=== PATIENT | female | born 1995 | race Caucasian/White ===

== ENCOUNTER 2016-09-25 01:40 | Emergency (ER) | payer OTHER ==
[~2016-09-25] VITALS: Ht 149.9 cm; Wt 36.6 kg
[~2016-09-25 01:40] MED LIST: ACHD5005 PO; ACYC200C5 PO; ALBU17AE23 IH; ALBU8.5H2 IH; AZIT-21 PO; CETI10CA PO; CETI10TA17 PO; CYCL5TAB11 PO; DICL50TA4 PO; DOXY-13 PO; DOXY100C42 PO; FAMO-119 PO; FAMO20TA5 PO; FEXO1TAB43 PO; FLUC150T PO; GUAI10SY4 GT; IBP200T PO; METR500T21 PO; MONT10TA21 PO; MONT5TAB11 PO; MONT5TAB16 PO; NF-FLON16G; PRD20T PO; RT-ALBUINH IH; SULF1TAB35 PO; TRIA100A TP
--- NOTE | 2016-09-25 02:12 | ED General ---
General Chief Complaint: Respiratory Problems Stated Complaint: LEGS NUMB, BODY SHAKES, CHEST PAIN Nursing Triage Note: PT TO ED 5 W/ S.O. FOR C/O GENERALIZED SHAKING, HEAVINESS IN CHEST, COUGH, CONGESTION. REPORTS SHE WAS SEEN AT URGENT CARE ET DX W/ INFLAMMATION IN LUNGS ET BRONCHITIS. HAS BEEN TAKING STEROID PRESCRIBED ET DUONEB TX EVER 2-4 HRS. Nursing Sepsis Screen: Possible Sepsis Risk Source of Information: Patient Exam Limitations: No Limitations History of Present Illness Time Seen by Provider: 01:57 Initial Comments Here with complaint of shakiness and cough and congestion. Stated that she started new medicines for bronchitis that she got yesterday including 60 mg of prednisone and albuterol treatments every 2-4 hours. Afterwards she became quite shaky and felt some agitation. She still has the cough but is breathing okay. She complains of chest congestion and heaviness with the cough. Denies nausea or vomiting. Timing/Duration: 4-6 Hours, Getting Worse Severity: Moderate Associated Systoms: CoughNo Fever/Chills, No Nausea/Vomiting, No Shortness of Air, No Weakness Allergies and Home Medications Allergies Coded Allergies: Penicillins (Unverified Allergy, Unknown, 05/12/15) Home Medications Cetirizine HCl 10 Mg Capsule 10 MG PO DAILY (Reported) Diclofenac Potassium 50 Mg Tablet #30 50 MG PO Q6H PRN PRN ABDOMINAL PAIN Prescribed by: ABBY ROMO on 07/21/16 1640 Fluconazole 150 Mg Tablet #2 150 MG PO every other day Prescribed by: LEO MOSER on 07/25/16 1108 Fluticasone Propionate 50 Mcg/16 G [place] 50 MCG NA (Reported) Metronidazole 500 Mg Tablet #13 500 MG PO BID Prescribed by: LAURIE DIAZ on 08/30/16 0857 Montelukast Sodium 10 Mg Tablet 10 MG PO DAILY (Reported) Constitutional: see HPINo chills, No fever Respiratory: see HPI cough short of breath Cardiovascular: see HPI Gastrointestinal: no symptoms reportedNo nausea, No vomiting Genitourinary: no symptoms reported Musculoskeletal: no symptoms reported Skin: no symptoms reported Psychiatric/Neurological: See HPI Anxiety Tremors Hematologic/Lymphatic: No Symptoms Reported All Other Systems Reviewed Negative Unless Noted: Yes Past Kyhpzut-Yfwjje-Ftptss Hx Patient Social History Alcohol Use: Denies Use Recreational Drug Use: No Smoking Status: Never a Smoker Recent Foreign Travel: No Contact w/Someone Who Travel: No Recent Infectious Disease Expo: No Recent Hopitalizations: No Physical Abuse Screen: No Sexual Abuse: No Immunizations Up To Date Tetanus Booster (TDap): Less than 5yrs Seasonal Allergies Seasonal Allergies: Yes Surgeries HX Surgeries: Yes (TUBES IN EARS ) Respiratory Hx Respiratory Disorders: Yes Respiratory Disorders: Asthma Cardiovascular Hx Cardiac Disorders: No Neurological Hx Neurological Disorders: No Reproductive System Hx Reproductive Disorders: No Sexually Transmitted Disease: No Genitourinary Hx Genitourinary Disorders: No Gastrointestinal Hx Gastrointestinal Disorders: No Musculoskeletal Hx Musculoskeletal Disorders: No Musculoskeletal Disorders: Fractures Endocrine Hx Endocrine Disorders: No HEENT HX ENT Disorders: No Cancer Hx Cancer: No Psychosocial Hx Psychiatric Problems: No Integumentary HX Skin/Integumentary Disorder: No Blood Transfusions Hx Blood Disorders: No Reviewed Nursing Assessment Reviewed/Agree w Nursing PMH: Yes Family Medical History Significant Family History: No Pertinent Family Hx Physical Exam Vital Signs Vital Sign - Last 12Hours 09/25/16 01:52 Temp 97.2 Pulse 136 Resp 24 B/P 130/84 Pulse Ox 97 O2 Delivery Room Air Capillary Refill : Less Than 3 Seconds General Appearance: No Apparent Distress WD/WN HEENT: PERRL/EOMI Pharynx Normal Neck: Non Tender Supple Respiratory: Lungs Clear Normal Breath Sounds Cardiovascular: No Murmur Tachycardia Gastrointestinal: Non Tender Soft Back: Normal Inspection No CVA Tenderness No Vertebral Tenderness Extremity: Non Tender No Calf Tenderness Neurologic/Psychiatric: Alert Oriented x3 Skin: Normal Color Warm/Dry Progress/Results/Core Measures Results/Orders Vital Signs/I&O Vital Sign - Last 12Hours 09/25/16 01:52 Temp 97.2 Pulse 136 Resp 24 B/P 130/84 Pulse Ox 97 O2 Delivery Room Air Blood Pressure Mean: 99 Progress Note : Progress Note Seen and evaluated. Reviewed medications. All current symptoms are within the side effect profile of the medications especially given her weight. This was discussed with the patient and she seemed reassured. We will adjust her medication dosing based on her weight and have her follow-up with her doctor. Discharged home with return precautions. Patient verbalize understanding instructions and agreement with plan. Departure Impression Impression: Primary Impression: Bronchitis Additional Impression: Medication side effect Qualified Code: T88.7XXA - Unspecified adverse effect of drug or medicament, initial encounter Disposition: HOME, SELF-CARE Condition: Stable Departure-Patient Inst. Decision time for Depature: 02:10 Referrals: [facility] (PCP/Family) Primary Care Physician Patient Instructions: Acute Bronchitis, Adult (DC) Add. Discharge Instructions: All discharge instructions reviewed with patient and/or family. Voiced understanding. We will adjust her medication dosing. Take prednisone one tablet daily for 4 days and then one half tablet daily for 2 days after that and then stop. Do not use the nebulizer treatment more often than every 4 hours. Avoid caffeine. Drink plenty of fluids and eat a normal diet. You may take ibuprofen 400 mg every 8 hours as needed for discomfort. Follow-up with her doctor in a few days for recheck. Return for worse pain, fever, vomiting, weakness, breathing problems or other concerns as needed. LAURIE DIAZ MD Sep 25, 2016 02:12
[2016-09-25 02:16] VITALS: BP 0/0
== END 2016-09-25 02:16 | disposition home or self-care (01) ==
LOC: EDUNIT# 01:40 → ER 01:44
DX: R45.1 Restlessness and agitation (principal); T38.0X5A Adverse effect of glucocorticoids and synthetic analogues, initial encounter; T48.6X5A Adverse effect of antiasthmatics, initial encounter; J40 Bronchitis, not specified as acute or chronic
CPT/HCPCS: 99282

== ENCOUNTER 2016-10-14 17:37 | Emergency (ER) | payer OTHER ==
[~2016-10-14] VITALS: Ht 149.9 cm; Wt 36.3 kg
--- NOTE | 2016-10-14 18:20 | ED GU-Female ---
General Chief Complaint: Abdominal/GI Problems Stated Complaint: ABD SWELLING/PAIN/NAUSEA/UTI Nursing Triage Note: PT STATES SHE HAS HAD LOWER ABD SWELLING FOR 2 WEEKS. ALSO HAS NAUSEA AND VOTMITNG. STATES SHE IS CURRENTLY BEING TREATED FOR A UTI-IS ON BACTRIM SINCE SUNDAY. Nursing Sepsis Screen: No Definite Risk Source: patient, family (mother) Exam Limitations: no limitations History of Present Illness Time seen by provider: 18:20 Initial Comments 21-year-old female patient presents to the emergency department complains of lower abdominal swelling for 2 weeks. Patient was diagnosed with urinary tract infection on Sunday and given Bactrim at via [facility] urgent care. Patient reports dysuria, frequency, nausea, vomiting. Denies fevers. Reports generalized abdominal pain. Timing/Duration: getting worse, changing over time, other (2 weeks onset) Severity/Quality: aching, cramping Location: other (generalized abdomen) Radiation: none Activities at Onset: none Prior Genitourinary Problems: similar symptoms Sexual [place] History: less than 2 months ago, single partner Modifying Factors: Worsens With Eating, Worsens With Palpation, Worsens With Urinating, Worsens With Vomiting Allergies and Home Medications Allergies Coded Allergies: Penicillins (Unverified Allergy, Unknown, 05/12/15) Uncoded Allergies: SULFA (Allergy, Unknown, 10/14/16) Home Medications Cetirizine HCl 10 Mg Capsule 10 MG PO DAILY (Reported) Ciprofloxacin HCl 500 Mg Tablet #14 500 MG PO BID Prescribed by: BELINDA CUELLAR on 10/14/162018 Diclofenac Potassium 50 Mg Tablet #30 50 MG PO Q6H PRN PRN ABDOMINAL PAIN Prescribed by: ABBY ROMO on 07/21/16 1640 Fluconazole 150 Mg Tablet #2 150 MG PO every other day Prescribed by: LEO MOSER on 07/25/16 1108 Fluticasone Propionate 50 Mcg/16 G [place] 50 MCG NA (Reported) Metronidazole 500 Mg Tablet #13 500 MG PO BID Prescribed by: LAURIE DIAZ on 08/30/16 0857 Montelukast Sodium 10 Mg Tablet 10 MG PO DAILY (Reported) Ondansetron 4 Mg Tab.rapdis #10 4 MG PO Q6H PRN PRN NAUSEA Prescribed by: BELINDA CUELLAR on 10/14/162018 Phenazopyridine HCl 100 Mg Tablet #14 100 MG PO Q8H PRN PRN PAIN Prescribed by: BELINDA CUELLAR on 10/14/162018 Constitutional: No chills, No fever, No malaise EENTM: no symptoms reported Respiratory: no symptoms reported Cardiovascular: no symptoms reported Gastrointestinal: see HPI abdominal pain (generalized)No constipation, No diarrhea, loss of appetite nausea vomiting Genitourinary: see HPIdenies discharge, dysuria frequencydenies flank pain, denies hematuria, pain : No Musculoskeletal: No back pain Skin: no symptoms reported Psychiatric/Neurological: No Symptoms Reported All Other Systemes Reviewed Negative Unless Noted: Yes (Negative excepted noted.) Past Bkiumzt-Xuuicv-Orflut Hx Patient Social History Alcohol Use: Denies Use Recreational Drug Use: No Smoking Status: Never a Smoker 2nd Hand Smoke Exposure: No Recent Foreign Travel: No Contact w/Someone Who Travel: No Recent Infectious Disease Expo: No Recent Hopitalizations: No Immunizations Up To Date Tetanus Booster (TDap): Less than 5yrs Seasonal Allergies Seasonal Allergies: Yes Surgeries HX Surgeries: Yes (TUBES IN EARS ) Respiratory Hx Respiratory Disorders: Yes Respiratory Disorders: Asthma Cardiovascular Hx Cardiac Disorders: No Neurological Hx Neurological Disorders: No Reproductive System Hx Reproductive Disorders: No Sexually Transmitted Disease: No Genitourinary Hx Genitourinary Disorders: No Gastrointestinal Hx Gastrointestinal Disorders: No Musculoskeletal Hx Musculoskeletal Disorders: No Musculoskeletal Disorders: Fractures Endocrine Hx Endocrine Disorders: No HEENT HX ENT Disorders: No Cancer Hx Cancer: No Psychosocial Hx Psychiatric Problems: No Integumentary HX Skin/Integumentary Disorder: No Blood Transfusions Hx Blood Disorders: No Reviewed Nursing Assessment Reviewed/Agree w Nursing PMH: Yes Family Medical History Significant Family History: No Pertinent Family Hx Physical Exam Vital Signs Vital Sign - Last 12Hours 10/14/16 10/14/16 17:52 21:00 Temp 98.7 Pulse 80 Resp 18 B/P 124/84 Pulse Ox 99 Capillary Refill : Less Than 3 Seconds General Appearance: WD/WN no apparent distress HEENT: PERRL/EOMI pharynx normal Neck: supple normal inspection Cardiovascular: regular rate, rhythm no edema no murmur Respiratory: lungs clear normal breath sounds no respiratory distress Gastrointestinal: normal bowel sounds soft no organomegaly distended (mildly distended, but soft.) guarding (generalized guarding)No rebound, tenderness ( generalized abdominal tenderness)No mass Back: normal inspection no CVA tenderness Extremities: normal inspection no pedal edema normal capillary refill Neurologic/Psychiatric: alert normal mood/affect oriented x 3 Skin: normal color warm/dry Progress/Results/Core Measures Results/Orders Lab Results Laboratory Tests Test 10/14/16 17:47 10/14/16 18:51 10/14/16 19:16 Range/Units Urine Bacteria MODERATE H /HPF Urine Bilirubin NEGATIVE NEGATIVE Urine Calcium Oxalate Crystals LARGE H /LPF Urine Casts NONE /LPF Urine Clarity VERY CLOUDY H Urine Color YELLOW Urine Crystals PRESENT H /LPF Urine Culture Indicated YES Urine Glucose (UA) NEGATIVE NEGATIVE Urine Ketones 1+ H NEGATIVE Urine Leukocyte Esterase 2+ H NEGATIVE Urine Mucus NEGATIVE /LPF Urine Nitrite POSITIVE H NEGATIVE Urine Protein 2+ H NEGATIVE Urine RBC NONE /HPF Urine RBC (Auto) NEGATIVE NEGATIVE Urine Specific [place] 1.025 H 1.016-1.022 Urine Squamous Epithelial Cells 2-5 /HPF Urine Urobilinogen NORMAL NORMAL MG/DL Urine WBC 2-5 /HPF Urine pH 5 5-9 Basophils # (Auto) 0.0 0.0-0.1 10^3/uL Basophils (%) (Auto) 1 0-10 % Eosinophils # (Auto) 0.0 0.0-0.3 10^3/uL Eosinophils (%) (Auto) 0 0-10 % Hematocrit 40 35-52 % Hemoglobin 13.6 11.5-16.0 G/DL Lymphocytes # (Auto) 2.3 1.0-4.0 X 10^3 Lymphocytes (%) (Auto) 34 12-44 % Mean Corpuscular Hemoglobin 31 25-34 PG Mean Corpuscular Hemoglobin Concent 34 32-36 G/DL Mean Corpuscular Volume 89 80-99 FL Mean Platelet Volume 10.0 7.4-10.4 FL Monocytes # (Auto) 0.4 0.0-1.0 X 10^3 Monocytes (%) (Auto) 6 0-12 % Neutrophils # (Auto) 4.0 1.8-7.8 X 10^3 Neutrophils (%) (Auto) 59 42-75 % Platelet Count 179 130-400 10^3/uL Red Blood Count 4.42 4.35-5.85 10^6/uL Red Cell Distribution Width 12.9 10.0-14.5 % White Blood Count 6.8 4.3-11.0 10^3/uL Alanine Aminotransferase (ALT/SGPT) 9 0-55 U/L Albumin 4.1 3.2-4.5 G/DL Alkaline Phosphatase 36 L 40-136 U/L Anion Gap 10 5-14 MMOL/L Aspartate Amino Transf (AST/SGOT) 13 5-34 U/L BUN/Creatinine Ratio 11 Blood Urea Nitrogen 8 7-18 MG/DL Calcium Level 8.1 L 8.5-10.1 MG/DL Carbon Dioxide Level 18 L 21-32 MMOL/L Chloride Level 110 H 98-107 MMOL/L Creatinine 0.75 0.60-1.30 MG/DL Estimat Glomerular Filtration Rate > 60 Glucose Level 76 70-105 MG/DL Lipase 31 8-78 U/L Potassium Level 3.8 3.6-5.0 MMOL/L Sodium Level 138 135-145 MMOL/L Total Bilirubin 0.4 0.1-1.0 MG/DL Total Protein 5.9 L 6.4-8.2 G/DL My Orders Orders-BELINDA CUELLAR PA Ua Culture If Indicated (10/14/16 18:12) Urine Bedside (10/14/16 18:12) Ct Abdomen/Pelvis W (10/14/16 18:29) Saline Lock/Iv-Start (10/14/16 18:29) Cbc With Automated Diff (10/14/16 18:29) Comprehensive Metabolic Panel (10/14/16 18:29) Lipase (10/14/16 18:29) Ketorolac Injection (Toradol Injection) (10/14/16 18:29) Ondansetron Injection (Zofran Injectio (10/14/16 18:30) Ns Iv 500 Ml (Sodium Chloride 0.9%) (10/14/16 18:29) Iohexol Injection (Omnipaque 350 Mg/Ml 1 (10/14/16 18:45) Ns (Ivpb) (Sodium Chloride 0.9% Ivpb Bag (10/14/16 18:45) Urine Culture (10/14/16 17:47) Hydrocodone/Apap 5/325 Tablet (Lortab 5 (10/14/16 19:51) Phenazopyridine Tablet (Pyridium Tablet) (10/14/16 19:51) Levofloxacin 750 Mg/150 Ml Iv (Levaquin (10/14/16 19:51) Medications Given in ED Current Medications Medications Dose Ordered Sig/Mikey Route Start Time Stop Time Status Last Admin Dose Admin Iohexol 75 ml ONCE ONCE IV 10/14/16 18:45 10/14/16 20:50 DC 10/14/16 19:32 75 ML Ondansetron HCl 4 mg 4 mg ONCE ONCE IVP 10/14/16 18:30 10/14/16 18:31 DC 10/14/16 18:43 4 MG Sodium Chloride 100 ml ONCE ONCE IV 10/14/16 18:45 10/14/16 20:50 DC 10/14/16 19:32 100 ML Sodium Chloride 500 ml @ 0 mls/hr Q0M ONCE IV 10/14/16 18:29 10/14/16 18:31 DC 10/14/16 18:43 999 MLS/HR Vital Signs/I&O Vital Sign - Last 12Hours 10/14/16 10/14/16 17:52 21:00 Temp 98.7 98.7 Pulse 80 80 Resp 18 18 B/P 124/84 Pulse Ox 99 Blood Pressure Mean: 97 Diagnostic Imaging Diagonstic Imaging: CT Plain Films/CT/US/NM/MRI: abdomen, head Comments FINDINGS: The lung bases are clear. The liver, gallbladder, spleen, pancreas, adrenal glands, and kidneys appear normal. No renal calculi or hydronephrosis is present. Urinary bladder is normal. The uterus and adnexal structures appear normal. The appendix is partially visualized and appears normal. There is a trace amount of ascites in the right side of cul-de-sac which is probably physiological. The bowel loops appear unremarkable. The osseous structures are normal. No hernias are seen. IMPRESSION: There is trace amount of ascites in the right cul-de-sac which is probably physiological. Dictated by: Dictated on workstation # [id number] Reviewed: Reviewed by Me (radiology report reviewed by me) Departure Communication Progress Notes Laboratory and diagnostic findings were discussed with the patient and family. Patient reports feeling better with medications. Patient is given Levaquin 750 mg IV 1 dose prior to discharge. Discharge to home with follow-up as an outpatient at [facility]. Patient instructed to contact their office for appointment time. Impression Impression: Primary Impression: Urinary tract infection Qualified Code: N30.00 - Acute cystitis without hematuria Additional Impressions: Nausea and vomiting Qualified Code: R11.2 - Nausea with vomiting, unspecified Abdominal pain Qualified Code: R10.84 - Generalized abdominal pain Disposition: 01 HOME, SELF-CARE Condition: Improved Departure-Patient Inst. Decision time for Depature: 20:17 Referrals: [facility] (PCP/Family) Primary Care Physician Patient Instructions: Acute Abdomen (Belly Pain), Adult (DC), Urinary Tract Infection, Adult (DC) Add. Discharge Instructions: All discharge instructions reviewed with patient and/or family. Voiced understanding. Medications as instructed. Tylenol extra strength over-the- counter as directed for pain. Ibuprofen [id number] as directed for pain. Drink plenty of fluids. Follow-up with [facility] for recheck this week. Call Sunday for appointment time. Return to the emergency department for worsened pain, fever, vomiting, inability to urinate, or any other concerns. Scripts Ondansetron (Ondansetron Odt)4 Mg Tab.rapdis4 Mg PO Q6H PRN NAUSEA #10 TAB Ref 0 Prov:BELINDA CUELLAR 10/14/16 Phenazopyridine HCl (Pyridium)100 Mg [id number] Mg PO Q8H PRN PAIN #14 TAB Ref 1 Prov:BELINDA CUELLAR 10/14/16 Ciprofloxacin HCl 500 Mg [id number] Mg PO BID #14 TAB Ref 0 Prov:BELINDA CUELLAR 10/14/16 Work/School Note: Work Release Form Date Seen in the Emergency Department: Oct 14, 2016 Return to Work: Oct 16, 2016 Restrictions: No Restrictions BELINDA CUELLAR Oct 14, 2016 18:20
[2016-10-14] MEDS ORDERED: KETOROLAC 30 MG/ML VIAL IVP STA (18:29)
[2016-10-14] MEDS ORDERED: NS IV 500 ML 500 ML IV ONE (18:29)
[2016-10-14] MEDS ORDERED: ONDANSETRON 4 MG/2 ML (SDV) Z0FRAN IVP ONE (18:30)
[2016-10-14 18:34] LABS: BILIRUBIN,URINE NEGATIVE (NEGATIVE); KETONES,URINE 1+ (NEGATIVE); LEUKOCYTE ESTERASE ,URINE 2+ (NEGATIVE); NITRITE,URINE POSITIVE (NEGATIVE); PH,URINE 5 (5-9); PROTEIN,URINE 2+ (NEGATIVE); UROBILINOGEN,URINE NORMAL (NORMAL)
[2016-10-14 18:43] LABS: CALCIUM OXALATE CRYSTALS,UR LARGE /LPF
[2016-10-14] MEDS ORDERED: NS 100 ML (IVPB) BAG IV ONE (18:45)
[2016-10-14] MEDS ORDERED: IOHEXOL 350 MG/ML 100 ML (OMNIPAQUE 350) VIAL IV ONE (18:45)
[2016-10-14 19:02] LABS: BASOPHILS % (AUTO) 1 % (0-10); EOSINOPHILS % (AUTO) 0 % (0-10); LYMPHOCYTES # (AUTO) 2.3 X 10^3 (1.0-4.0); LYMPHOCYTES % (AUTO) 34 % (12-44); MEAN CORPUSCULAR HEMOGLOBIN 31 PG (25-34); MEAN CORPUSCULAR HGB CONC 34 G/DL (32-36); MEAN CORPUSCULAR VOLUME 89 FL (80-99); MONOCYTES # (AUTO) 0.4 X 10^3 (0.0-1.0); MONOCYTES % (AUTO) 6 % (0-12); NEUTROPHILS % (AUTO) 59 % (42-75); PLATELET COUNT 179 10^3/uL (130-400); RED BLOOD COUNT 4.42 10^6/uL (4.35-5.85); RED CELL DISTRIBUTION WIDTH 12.9 % (10.0-14.5); WHITE BLOOD COUNT 6.8 10^3/uL (4.3-11.0)
[2016-10-14 19:43] LABS: ALANINE AMINOTRANSFERASE 9 U/L (0-55); ALBUMIN 4.1 G/DL (3.2-4.5); ANION GAP 10 MMOL/L (5-14); ASPARTATE AMINO TRANSFERASE 13 U/L (5-34); BILIRUBIN,TOTAL 0.4 MG/DL (0.1-1.0); BLOOD UREA NITROGEN 8 MG/DL (7-18); BUN/CREATININE RATIO 11; CALCIUM 8.1 MG/DL (8.5-10.1); CARBON DIOXIDE 18 MMOL/L (21-32); CHLORIDE 110 MMOL/L (98-107); CREATININE SERUM 0.75 MG/DL (0.60-1.30); GFR ESTIMATED > 60; GLUCOSE 76 MG/DL (70-105); LIPASE 31 U/L (8-78); POTASSIUM 3.8 MMOL/L (3.6-5.0); SODIUM 138 MMOL/L (135-145); TOTAL PROTEIN 5.9 G/DL (6.4-8.2)
[2016-10-14] MEDS ORDERED: LEVOFLOXACIN 750 MG/150 ML IV 150 ML IV STA (19:51)
[2016-10-14] MEDS ORDERED: HYDROcodone/APAP 5 MG/325 MG (LORTAB) TAB PO STA (19:51)
[2016-10-14] MEDS ORDERED: PHENAZOPYRIDINE 100 MG (PYRIDIUM) TABLET PO STA (19:51)
--- NOTE | 2016-10-14 19:51 | Diagnostic Imaging Report ---
PROCEDURE: CT abdomen and pelvis with contrast. TECHNIQUE: Multiple contiguous axial images were obtained through the abdomen and pelvis after administration of intravenous contrast. INDICATION: Nausea and vomiting with abdominal distention for 2 weeks. No previous surgeries. CONTRAST: 75 cc of Omnipaque 350 was given intravenously. COMPARISON STUDIES: Pelvic ultrasound from August 30. FINDINGS: The lung bases are clear. The liver, gallbladder, spleen, pancreas, adrenal glands, and kidneys appear normal. No renal calculi or hydronephrosis is present. Urinary bladder is normal. The uterus and adnexal structures appear normal. The appendix is partially visualized and appears normal. There is a trace amount of ascites in the right side of cul-de-sac which is probably physiological. The bowel loops appear unremarkable. The osseous structures are normal. No hernias are seen. IMPRESSION: There is trace amount of ascites in the right cul-de-sac which is probably physiological. Dictated by: Dictated on workstation # [id number]
[2016-10-14] MEDS ORDERED: PHEN-639 PO (20:19)
[2016-10-14] MEDS ORDERED: CIPR500T4 PO (20:19)
[2016-10-14] MEDS ORDERED: ONDA4TAB11 PO (20:19)
[2016-10-14 21:00] VITALS: BP 124/84
== END 2016-10-14 21:00 | disposition home or self-care (01) ==
LOC: EDUNIT# 17:37 → ER 17:39
DX: N39.0 Urinary tract infection, site not specified (principal); R11.2 Nausea with vomiting, unspecified; R10.84 Generalized abdominal pain
CPT/HCPCS: 36415; 74177; 80053; 81000; 83690; 84703; 85025; 87088; 96361; 96365; 96375

== ENCOUNTER 2016-12-31 21:05 | Emergency (ER) | payer SELFPAY ==
[~2016-12-31] VITALS: Ht 149.9 cm; Wt 36.6 kg
[~2016-12-31 21:05] MED LIST changes: +CIPR500T4 PO; +ONDA4TAB11 PO; +PHEN-639 PO
--- NOTE | 2016-12-31 21:21 | ED GU-Female ---
General Chief Complaint: -Female Stated Complaint: ABD PAIN, BLOOD IN URINE, FREQUENT URINATION Source: patient Exam Limitations: no limitations History of Present Illness Time seen by provider: 21:20 Initial Comments To ER with a one-week history of urinary frequency, blood in her urine. No fevers or chills. No nausea vomiting. No vaginal discharge. States that she is constipated. Timing/Duration: just prior to arrival Severity/Quality: moderate Radiation: none Activities at Onset: none Prior Genitourinary Problems: none Associated Symptoms: dysuria Allergies and Home Medications Allergies Coded Allergies: Penicillins (Unverified Allergy, Unknown, 05/12/15) Home Medications Cetirizine HCl 10 Mg Capsule, 10 MG PO DAILY, (Reported) Clarithromycin 250 Mg Tablet, Unknown Dose PO unknown, (Reported) Fluticasone Propionate 50 Mcg/16 G [place], 50 MCG NA, (Reported) Montelukast Sodium 10 Mg Tablet, 10 MG PO DAILY, (Reported) Constitutional: see HPI, No chills, No fever EENTM: see HPI Respiratory: no symptoms reported Cardiovascular: no symptoms reported Gastrointestinal: RUQ Genitourinary: see HPI, dysuria, frequency Musculoskeletal: no symptoms reported Skin: no symptoms reported Psychiatric/Neurological: No Symptoms Reported Past Dixvqsp-Njdpdw-Jkputj Hx Patient Social History 2nd Hand Smoke Exposure: No Recent Foreign Travel: No Contact w/Someone Who Travel: No Recent Hopitalizations: No Immunizations Up To Date Tetanus Booster (TDap): Less than 5yrs Seasonal Allergies Seasonal Allergies: Yes Surgeries HX Surgeries: Yes (TUBES IN EARS ) Respiratory Hx Respiratory Disorders: Yes Respiratory Disorders: Asthma Cardiovascular Hx Cardiac Disorders: No Neurological Hx Neurological Disorders: No Reproductive System Hx Reproductive Disorders: No Sexually Transmitted Disease: No Genitourinary Hx Genitourinary Disorders: No Gastrointestinal Hx Gastrointestinal Disorders: No Musculoskeletal Hx Musculoskeletal Disorders: No Musculoskeletal Disorders: Fractures Endocrine Hx Endocrine Disorders: No HEENT HX ENT Disorders: No Cancer Hx Cancer: No Psychosocial Hx Psychiatric Problems: No Integumentary HX Skin/Integumentary Disorder: No Blood Transfusions Hx Blood Disorders: No Family Medical History Significant Family History: No Pertinent Family Hx Physical Exam Vital Signs Vital Sign - Last 12Hours 12/31/16 21:18 Temp 98.2 Pulse 74 Resp 16 B/P (MAP) 112/74 Pulse Ox 98 O2 Delivery Room Air Capillary Refill : General Appearance: WD/WN, no apparent distress HEENT: PERRL/EOMI, normal ENT inspection Neck: non-tender, full range of motion Respiratory: no respiratory distress, no accessory muscle use Gastrointestinal: normal bowel sounds, soft, tenderness (suprapubic) Extremities: normal range of motion, non-tender Neurologic/Psychiatric: alert, normal mood/affect, oriented x 3 Skin: normal color, warm/dry Progress/Results/Core Measures Results/Orders Lab Results Laboratory Tests Test 12/31/16 21:15 Range/Units Urine Color YELLOW Urine Clarity CLEAR Urine pH 8 5-9 Urine Specific [place] 1.010 L 1.016-1.022 Urine Protein NEGATIVE NEGATIVE Urine Glucose (UA) NEGATIVE NEGATIVE Urine Ketones NEGATIVE NEGATIVE Urine Nitrite NEGATIVE NEGATIVE Urine Bilirubin NEGATIVE NEGATIVE Urine Urobilinogen NORMAL NORMAL MG/DL Urine Leukocyte Esterase NEGATIVE NEGATIVE Urine RBC (Auto) NEGATIVE NEGATIVE Urine RBC RARE /HPF Urine WBC RARE /HPF Urine Squamous Epithelial Cells 2-5 /HPF Urine Crystals NONE /LPF Urine Bacteria NEGATIVE /HPF Urine Casts NONE /LPF Urine Mucus NEGATIVE /LPF Urine Culture Indicated NO My Orders Orders - LEO MOSER APRN Ua Culture If Indicated (12/31/16 21:08) Acute Abd Series (12/31/16 21:21) Vital Signs/I&O Vital Sign - Last 12Hours 12/31/16 21:18 Temp 98.2 Pulse 74 Resp 16 B/P (MAP) 112/74 Pulse Ox 98 O2 Delivery Room Air Point of Care Testing Urine -Bedside: Negative Departure Impression Impression: Primary Impression: Dysuria Additional Impression: Constipation Disposition: 01 HOME, SELF-CARE Condition: Stable Departure-Patient Inst. Decision time for Depature: 21:34 Referrals: [facility] (PCP/Family) Primary Care Physician Patient Instructions: NO INSTRUCTIONS GIVEN Add. Discharge Instructions: Follow-up with your doctor tomorrow 2. Return to ER for any fevers, worsening pain or other concerns All discharge instructions reviewed with patient and/or family. Voiced understanding. Use [id number] MiraLAX 1 capful twice daily for 3-5 days. LEO MOSER APRN Dec 31, 2016 21:21
[2016-12-31 21:22] LABS: BILIRUBIN,URINE NEGATIVE (NEGATIVE); KETONES,URINE NEGATIVE (NEGATIVE); LEUKOCYTE ESTERASE ,URINE NEGATIVE (NEGATIVE); NITRITE,URINE NEGATIVE (NEGATIVE); PH,URINE 8 (5-9); PROTEIN,URINE NEGATIVE (NEGATIVE); UROBILINOGEN,URINE NORMAL (NORMAL)
[2016-12-31] MEDS ORDERED: CLAR250T PO (21:23)
[2016-12-31 21:30] LABS: WBC,URINE RARE /HPF
[2016-12-31 21:43] VITALS: BP 112/74
--- NOTE | 2016-12-31 22:10 | Diagnostic Imaging Report ---
EXAMINATION: Abdominal radiographs, acute series DATE: December 31, 2016. CLINICAL INDICATION: 21-year-old female, abdominal pain. COMPARISON: CT abdomen and pelvis October 14, 2016. COMMENTS: Heart size and mediastinal contours are unremarkable. There is no identified pneumothorax, large pleural effusion or focal airspace consolidation. There is no identified free intraperitoneal air. There is a moderate volume colonic stool. There are no abnormally distended gas-filled segments of bowel. There is no identified pneumatosis or portal venous gas. There is no identified abnormal radiodensity overlying the expected positions of the kidneys or ureters. IMPRESSION: 1. Moderate volume colonic stool. 2. No identified acute abdominal radiographic abnormality. Dictated by: Dictated on workstation # [id number]
== END 2016-12-31 21:43 | disposition home or self-care (01) ==
LOC: EDUNIT# 21:05 → ER 21:07
DX: R30.0 Dysuria (principal); K59.00 Constipation, unspecified
CPT/HCPCS: 74022; 81000; 84703; 99282

== ENCOUNTER 2017-05-14 12:54 | Emergency (ER) | payer SELFPAY ==
[~2017-05-14] VITALS: Ht 149.9 cm; Wt 36.6 kg
[~2017-05-14 12:54] MED LIST changes: +CLAR250T PO
--- OUTSIDE RECORDS SUMMARY | 2017-05-14 12:59 | XMS REPORT ---
Author Author LEXX OLMOS Organization [facility] Address [address] [place] [address] Care Team Providers Care Singing Waiter Or Waitress Name Role Phone LEXX OLMOS Unavailable PROBLEMS Type Condition ICD9-CM Code [id number] Code Onset Dates Condition Status SNOMED Code Problem Ovarian cyst N83.20 Active 42166304 Problem Seasonal allergic rhinitis, unspecified allergic rhinitis trigger J30.2 Active 901563157 Problem Dermatitis L30.9 Active 58705495 Problem GERD (gastroesophageal reflux disease) K21.9 Active 570925853 Problem Diverticulitis of large intestine without perforation or abscess with bleeding K57.33 Active 6198977 Problem Asthma exacerbation J45.901 Active 427538333 Problem Acute exacerbation of asthma with allergic rhinitis J45.901 Active 83672304720188 Problem Asthma with acute exacerbation in adult J45.901 Active 619445824 Problem Mild intermittent asthma without complication J45.20 Active 362401174 ALLERGIES Substance Reaction Event Type Date Status Penicillin V Potassium Unknown Drug Allergy Aug, Active SOCIAL HISTORY No smoking Hx information available PLAN OF CARE Activity Details Follow Up prn Reason: VITAL SIGNS Height 59 in 2016-09-05 Weight 85.2 lbs 2016-09-05 Temperature 98.9 degrees Fahrenheit 2016-09-05 Heart Rate 72 bpm 2016-09-05 Respiratory Rate 18 2016-09-05 BMI 17.21 kg/m2 2016-09-05 Blood pressure systolic 90 mmHg 2016-09-05 Blood pressure diastolic 62 mmHg 2016-09-05 MEDICATIONS Medication Instructions Dosage Frequency Start Date End Date Duration Status Flonase 50 mcg/actuation intranasally daily 1 spary each nostril 24h Aug Active Singulair 10 MG Orally Once a day 1 tablet in the evening 24h January, 30 day(s) Active Zyrtec Allergy 10mg oral daily 1 tablet 24h Active PredniSONE 20 MG Orally Once a day 2 tablet 24h Aug, Sep, 5 days Active Sudafed 30 MG Orally tid prn 1 tablet as needed Aug, 7 days Active Triamcinolone Acetonide 0.1 % Externally Twice a day prn 1 application to affected area Aug, Active ProAir HFA 90 mcg/actuation inhale 1 puffs by Inhalation route every 4 hours as needed PRN shortness of breath/cough Aug, Active RESULTS No Results PROCEDURES Procedure Date Ordered Related Diagnosis Body Site Office Visit, Est Pt., Level 3 Sep 05, 2016 IMMUNIZATIONS No Known Immunizations
--- OUTSIDE RECORDS SUMMARY | 2017-05-14 13:01 | XMS REPORT ---
Author Author IVETH BENDER [facility] Address [address] [place] [address] Care Team Providers Care Columnist/Commentator Name Role Phone IVETH BENDER Unavailable PROBLEMS Type Condition ICD9-CM Code [id number] Code Onset Dates Condition Status SNOMED Code Problem Ovarian cyst N83.20 Active 50157376 Problem Seasonal allergic rhinitis, unspecified allergic rhinitis trigger J30.2 Active 094275923 Problem Dermatitis L30.9 Active 48362974 Problem GERD (gastroesophageal reflux disease) K21.9 Active 724352847 Problem Diverticulitis of large intestine without perforation or abscess with bleeding K57.33 Active 3683581 Problem Asthma exacerbation J45.901 Active 500200524 Problem Acute exacerbation of asthma with allergic rhinitis J45.901 Active 89220972968792 Problem Asthma with acute exacerbation in adult J45.901 Active 137096280 Problem Mild intermittent asthma without complication J45.20 Active 052810548 ALLERGIES Substance Reaction Event Type Date Status Penicillin V Potassium Unknown Drug Allergy Sep, Active SOCIAL HISTORY No smoking Hx information available PLAN OF CARE Activity Details Follow Up if not improving or reg follow up Reason: VITAL SIGNS Height 59 in 2016-09-19 Weight 88.5 lbs 2016-09-19 Temperature 98.6 degrees Fahrenheit 2016-09-19 Heart Rate 76 bpm 2016-09-19 Respiratory Rate 18 2016-09-19 BMI 17.87 kg/m2 2016-09-19 Blood pressure systolic 96 mmHg 2016-09-19 Blood pressure diastolic 60 mmHg 2016-09-19 MEDICATIONS Medication Instructions Dosage Frequency Start Date End Date Duration Status ProAir HFA 90 mcg/actuation inhale 1 puffs by Inhalation route every 4 hours as needed PRN shortness of breath/cough Aug, Active Zyrtec Allergy 10mg oral daily 1 tablet 24h Active Singulair 10 MG Orally Once a day 1 tablet in the evening 24h January, 30 day(s) Active Azithromycin 250 MG Orally Once a day 2 tablets on the first day, then 1 tablet daily for 6 days 24h Sep, Sep, 07 days Active Benzonatate 100 MG Orally Three times a day prn 1 capsule as needed Sep, Sep, 07 days Active Flonase 50 mcg/actuation intranasally daily 1 spary each nostril 24h Aug Active Depo-Provera 150 MG/ML Active RESULTS Name Result Date Reference Range INFLUENZA A & B (IN HOUSE) 2016-09-19 INFLUENZA A negative INFLUENZA B negative Control + Lot # [id number] Exp date 12/01/18 PROCEDURES Procedure Date Ordered Related Diagnosis Body Site INFLUENZA ASSAY W/OPTIC Sep 19, 2016 Office Visit, Est Pt., Level 3 Sep 19, 2016 IMMUNIZATIONS No Known Immunizations
--- OUTSIDE RECORDS SUMMARY | 2017-05-14 13:02 | XMS REPORT ---
Author Author LEXX OLMOS Organization [facility] Address [address] [place] [address] Care Team Providers Care Cable Television Access Coordinator Name Role Phone LEXX OLMOS Unavailable PROBLEMS Type Condition ICD9-CM Code [id number] Code Onset Dates Condition Status SNOMED Code Problem Ovarian cyst N83.20 Active 57381563 Problem Seasonal allergic rhinitis, unspecified allergic rhinitis trigger J30.2 Active 603070313 Problem Dermatitis L30.9 Active 01934641 Problem GERD (gastroesophageal reflux disease) K21.9 Active 178876507 Problem Diverticulitis of large intestine without perforation or abscess with bleeding K57.33 Active 9768972 Problem Asthma exacerbation J45.901 Active 769763874 Problem Acute exacerbation of asthma with allergic rhinitis J45.901 Active 13288662999368 Problem Asthma with acute exacerbation in adult J45.901 Active 300509243 Problem Mild intermittent asthma without complication J45.20 Active 552456459 ALLERGIES Substance Reaction Event Type Date Status Penicillin V Potassium Unknown Drug Allergy Aug, Active SOCIAL HISTORY No smoking Hx information available PLAN OF CARE Activity Details Follow Up prn Reason: VITAL SIGNS Height 59 in 2016-08-24 Weight 88.4 lbs 2016-08-24 Temperature 97.8 degrees Fahrenheit 2016-08-24 Heart Rate 78 bpm 2016-08-24 Respiratory Rate 18 2016-08-24 BMI 17.85 kg/m2 2016-08-24 Blood pressure systolic 102 mmHg 2016-08-24 Blood pressure diastolic 64 mmHg 2016-08-24 MEDICATIONS Medication Instructions Dosage Frequency Start Date End Date Duration Status Triamcinolone Acetonide 0.1 % Externally Twice a day prn 1 application to affected area Aug, Active ProAir HFA 90 mcg/actuation inhale 1 puffs by Inhalation route every 4 hours as needed PRN shortness of breath/cough Aug, Active Zyrtec Allergy 10mg oral daily 1 tablet 24h Active Flonase 50 mcg/actuation intranasally daily 1 spary each nostril 24h Aug Active Bactrim DS 800-160 MG Orally Twice a day 1 tablet 12h Aug,Aug 3 days Active Pyridium 200 MG Orally Three times a day 1 tablet after meals 8h Aug, Aug, 2 day(s) Active Sudafed 30 MG Orally tid prn 1 tablet as needed Aug, 7 days Active Singulair 10 MG Orally Once a day 1 tablet in the evening 24h January, 30 day(s) Active RESULTS Name Result Date Reference Range UA LONG DIP (IN HOUSE) 2016-08-24 Lot # [id number] Exp date 2017 09 31 Clarity clear Color yellow Odor none GLU negative ESTELA negative KET negative SG >1.030 BLO trace pH 5.5 Protein negative URO 0.2 NIT negative AMANDA negative Lot # [id number] Exp date 2017 02 CULTURE, URINE 2016-08-24 Urine Culture, Routine Final report Result 1 No growth PROCEDURES Procedure Date Ordered Related Diagnosis Body Site URINE CULTURE/COLONY COUNT Aug 24, 2016 Office Visit, Est Pt., Level 3 Aug 24, 2016 IMMUNIZATIONS No Known Immunizations
[2017-05-14] MEDS ORDERED: RANI150T11 (13:05)
--- NOTE | 2017-05-14 13:08 | ED GU-Female ---
General Chief Complaint: -Female Stated Complaint: THINKS SHE HAS A UTI Source: patient Exam Limitations: no limitations History of Present Illness Time seen by provider: 13:07 Initial Comments To ER with reports of possible urinary tract infection. Patient states that she has bilateral flank pain, nausea without vomiting, chills without fever, urinary frequency and burning for the past 2 weeks. Severity/Quality: moderate Radiation: none Activities at Onset: none Associated Symptoms: dysuria, nausea/vomiting Allergies and Home Medications Allergies Coded Allergies: Penicillins (Unverified Allergy, Unknown, 05/12/15) Home Medications Cetirizine HCl 10 Mg Capsule, 10 MG PO DAILY, (Reported) Fluticasone Propionate 50 Mcg/16 G [place], 50 MCG NA, (Reported) Montelukast Sodium 10 Mg Tablet, 10 MG PO DAILY, (Reported) Ranitidine HCl 150 Mg Tablet, (Reported) Constitutional: see HPI, chills EENTM: see HPI Respiratory: no symptoms reported Cardiovascular: no symptoms reported Gastrointestinal: nausea Genitourinary: see HPI, dysuria, frequency, flank pain Musculoskeletal: no symptoms reported Skin: no symptoms reported Psychiatric/Neurological: No Symptoms Reported Past Cjoyzde-Dvhsda-Gvkocg Hx Patient Social History Alcohol Use: Denies Use Recreational Drug Use: No Type Used: Cigarettes 2nd Hand Smoke Exposure: No Recent Foreign Travel: No Contact w/Someone Who Travel: No Recent Hopitalizations: No Immunizations Up To Date Tetanus Booster (TDap): Less than 5yrs Seasonal Allergies Seasonal Allergies: Yes Surgeries History of Surgeries: Yes (TUBES IN EARS ) Respiratory History of Respiratory Disorde: Yes Respiratory Disorders: Asthma Cardiovascular History of Cardiac Disorders: No Neurological History of Neurological Disord: No Reproductive System Hx Reproductive Disorders: No Sexually Transmitted Disease: No Gastrointestinal History of Gastrointestinal Di: No Musculoskeletal History of Musculoskeletal Dis: No Musculoskeletal Disorders: Fractures Endocrine History of Endocrine Disorders: No Cancer History of Cancer: No Psychosocial History of Psychiatric Problem: No Integumentary History of Skin or Integumenta: No Blood Transfusions History of Blood Disorders: No Family Medical History Significant Family History: No Pertinent Family Hx Physical Exam Vital Signs Vital Sign - Last 12Hours 05/14/17 12:59 Temp 98.5 Pulse 103 Resp 18 B/P (MAP) 124/62 Pulse Ox 99 Capillary Refill : General Appearance: WD/WN, no apparent distress HEENT: PERRL/EOMI, normal ENT inspection Neck: non-tender, full range of motion Respiratory: normal breath sounds, no respiratory distress, no accessory muscle use Gastrointestinal: normal bowel sounds, non tender, soft Back: CVA tenderness (R), CVA tenderness (L) Extremities: normal range of motion, non-tender Neurologic/Psychiatric: alert, normal mood/affect, oriented x 3 Skin: normal color, warm/dry Progress/Results/Core Measures Results/Orders Lab Results Laboratory Tests Test 05/14/17 13:00 05/14/17 13:05 Range/Units White Blood Count 6.6 4.3-11.0 10^3/uL Red Blood Count 4.60 4.35-5.85 10^6/uL Hemoglobin 14.0 11.5-16.0 G/DL Hematocrit 42 35-52 % Mean Corpuscular Volume 91 80-99 FL Mean Corpuscular Hemoglobin 30 25-34 PG Mean Corpuscular Hemoglobin Concent 34 32-36 G/DL Red Cell Distribution Width 12.6 10.0-14.5 % Platelet Count 207 130-400 10^3/uL Mean Platelet Volume 9.2 7.4-10.4 FL Neutrophils (%) (Auto) 38 L 42-75 % Lymphocytes (%) (Auto) 54 H 12-44 % Monocytes (%) (Auto) 7 0-12 % Eosinophils (%) (Auto) 1 0-10 % Basophils (%) (Auto) 1 0-10 % Neutrophils # (Auto) 2.5 1.8-7.8 X 10^3 Lymphocytes # (Auto) 3.5 1.0-4.0 X 10^3 Monocytes # (Auto) 0.5 0.0-1.0 X 10^3 Eosinophils # (Auto) 0.1 0.0-0.3 10^3/uL Basophils # (Auto) 0.1 0.0-0.1 10^3/uL Urine Color YELLOW Urine Clarity CLEAR Urine pH 5 5-9 Urine Specific [place] 1.025 H 1.016-1.022 Urine Protein 1+ H NEGATIVE Urine Glucose (UA) NEGATIVE NEGATIVE Urine Ketones NEGATIVE NEGATIVE Urine Nitrite POSITIVE H NEGATIVE Urine Bilirubin NEGATIVE NEGATIVE Urine Urobilinogen NORMAL NORMAL MG/DL Urine Leukocyte Esterase 1+ H NEGATIVE Urine RBC (Auto) NEGATIVE NEGATIVE Urine RBC NONE /HPF Urine WBC 2-5 /HPF Urine Squamous Epithelial Cells 2-5 /HPF Urine Crystals NONE /LPF Urine Bacteria TRACE /HPF Urine Casts NONE /LPF Urine Mucus NEGATIVE /LPF Urine Culture Indicated YES My Orders Orders - LEO MOSER APRN Ua Culture If Indicated (05/14/17 13:06) Cbc With Automated Diff (05/14/17 13:06) Basic Metabolic Panel (05/14/17 13:06) Saline Lock/Iv-Start (05/14/17 13:06) Urine Bedside (05/14/17 13:06) Urine Culture (05/14/17 13:05) Vital Signs/I&O Vital Sign - Last 12Hours 05/14/17 12:59 Temp 98.5 Pulse 103 Resp 18 B/P (MAP) 124/62 Pulse Ox 99 Departure Impression Impression: Primary Impression: Urinary tract infection Disposition: 01 HOME, SELF-CARE Condition: Stable Departure-Patient Inst. Decision time for Depature: 13:26 Referrals: [facility] (PCP) Primary Care Physician IVETH BENDER (Family) Primary Care Physician Patient Instructions: Urinary Tract Infection, Adult (DC) Add. Discharge Instructions: All discharge instructions reviewed with patient and/or family. Voiced understanding. Scripts Ondansetron (Zofran Odt) 8 Mg Tab.rapdis 8 MG PO Q6H Y for NAUSEA/VOMITING-1ST LINE, #10 TAB Prov: LEO MOSER APRN 05/14/17 Phenazopyridine HCl (Pyridium) 100 Mg Tablet 100 MG PO TID, #6 TAB Prov: LEO MOSER APRN 05/14/17 Sulfamethoxazole/Trimethoprim (Bactrim Ds Tablet) 1 Each Tablet 1 EACH PO BID, #10 TAB Prov: LEO MOSER APRN 05/14/17 LEO MOSER APRN May 14, 2017 13:08
[2017-05-14 13:11] LABS: BASOPHILS # (AUTO) 0.1 10^3/uL (0.0-0.1); BASOPHILS % (AUTO) 1 % (0-10); EOSINOPHILS # (AUTO) 0.1 10^3/uL (0.0-0.3); EOSINOPHILS % (AUTO) 1 % (0-10); LYMPHOCYTES # (AUTO) 3.5 X 10^3 (1.0-4.0); LYMPHOCYTES % (AUTO) 54 % (12-44); MEAN CORPUSCULAR HEMOGLOBIN 30 PG (25-34); MEAN CORPUSCULAR HGB CONC 34 G/DL (32-36); MEAN CORPUSCULAR VOLUME 91 FL (80-99); MEAN PLATELET VOLUME 9.2 FL (7.4-10.4); MONOCYTES # (AUTO) 0.5 X 10^3 (0.0-1.0); MONOCYTES % (AUTO) 7 % (0-12); NEUTROPHILS # (AUTO) 2.5 X 10^3 (1.8-7.8); NEUTROPHILS % (AUTO) 38 % (42-75); PLATELET COUNT 207 10^3/uL (130-400); RED CELL DISTRIBUTION WIDTH 12.6 % (10.0-14.5); WHITE BLOOD COUNT 6.6 10^3/uL (4.3-11.0)
[2017-05-14 13:15] LABS: BILIRUBIN,URINE NEGATIVE (NEGATIVE); KETONES,URINE NEGATIVE (NEGATIVE); LEUKOCYTE ESTERASE ,URINE 1+ (NEGATIVE); NITRITE,URINE POSITIVE (NEGATIVE); PH,URINE 5 (5-9); PROTEIN,URINE 1+ (NEGATIVE); UROBILINOGEN,URINE NORMAL (NORMAL)
[2017-05-14] MEDS ORDERED: PHEN-639 PO (13:28)
[2017-05-14] MEDS ORDERED: ONDA8TAB9 PO (13:28)
[2017-05-14] MEDS ORDERED: SULF1TAB35 PO (13:28)
[2017-05-14 13:35] LABS: ANION GAP 13 MMOL/L (5-14); BLOOD UREA NITROGEN 9 MG/DL (7-18); BUN/CREATININE RATIO 13; CALCIUM 9.1 MG/DL (8.5-10.1); CARBON DIOXIDE 18 MMOL/L (21-32); CHLORIDE 111 MMOL/L (98-107); CREATININE SERUM 0.72 MG/DL (0.60-1.30); GFR ESTIMATED > 60; GLUCOSE 102 MG/DL (70-105); POTASSIUM 3.2 MMOL/L (3.6-5.0); SODIUM 142 MMOL/L (135-145)
[2017-05-14 13:36] VITALS: BP 124/62
== END 2017-05-14 13:36 | disposition home or self-care (01) ==
LOC: EDUNIT# 12:54 → ER 12:55
DX: N39.0 Urinary tract infection, site not specified (principal); J45.909 Unspecified asthma, uncomplicated
CPT/HCPCS: 36415; 80048; 81000; 84703; 85025; 87088

== ENCOUNTER 2017-07-04 19:50 | Emergency (ER) | payer SELFPAY ==
[~2017-07-04] VITALS: Ht 149.9 cm; Wt 36.6 kg
[~2017-07-04 19:50] MED LIST changes: +ONDA8TAB9 PO; +RANI150T11
--- OUTSIDE RECORDS SUMMARY | 2017-07-04 19:57 | XMS REPORT ---
Author Author IVETH BENDER [facility] Address [address] [place] [address] Care Team Providers Care Morgue Librarian Name Role Phone NAPOLEON IVETH Unavailable PROBLEMS Type Condition ICD9-CM Code USZ19-QG Code Onset Dates Condition Status SNOMED Code Problem Ovarian cyst N83.20 Active 86451267 Problem Seasonal allergic rhinitis, unspecified allergic rhinitis trigger J30.2 Active 906201748 Problem Dermatitis L30.9 Active 99237718 Problem GERD (gastroesophageal reflux disease) K21.9 Active 753908363 Problem Diverticulitis of large intestine without perforation or abscess with bleeding K57.33 Active 5223489 Problem Asthma exacerbation J45.901 Active 476711657 Problem Acute exacerbation of asthma with allergic rhinitis J45.901 Active 96083829670695 Problem Asthma with acute exacerbation in adult J45.901 Active 642936994 Problem Mild intermittent asthma without complication J45.20 Active 524427695 ALLERGIES Substance Reaction Event Type Date Status Penicillin V Potassium Unknown Drug Allergy Oct, Active SOCIAL HISTORY Never Assessed PLAN OF CARE Activity Details Follow Up prn. if not improving with PCP or reg follow up Reason: VITAL SIGNS Height 59 in 2016-10-31 Weight 86 lbs 2016-10-31 Temperature 98.7 degrees Fahrenheit 2016-10-31 Heart Rate 96 bpm 2016-10-31 Respiratory Rate 16 2016-10-31 BMI 17.37 kg/m2 2016-10-31 Blood pressure systolic 100 mmHg 2016-10-31 Blood pressure diastolic 60 mmHg 2016-10-31 MEDICATIONS Medication Instructions Dosage Frequency Start Date End Date Duration Status Zyrtec Allergy 10mg oral daily 1 tablet 24h Active Flonase 50 mcg/actuation intranasally daily 1 spary each nostril 24h Aug Active ProAir HFA 90 mcg/actuation inhale 1 puffs by Inhalation route every 4 hours as needed PRN shortness of breath/cough Aug, Active Azithromycin 250 MG Orally Once a day 2 tablets on the first day, then 1 tablet daily for 4 days 24h Oct, Oct, 5 day(s) Active Depo-Provera 150 MG/ML Active Singulair 10 MG Orally Once a day 1 tablet in the evening 24h January, 30 day(s) Active RESULTS No Results PROCEDURES Procedure Date Ordered Result Body Site ROCEPHIN 1 GM (IM) Oct 31, 2016 THER/PROPH/DIAG INJ, SC/IM Oct 31, 2016 IMMUNIZATIONS Vaccine Route Administration Date Status ROCEPHIN 1 GM (IM) IM Intramuscular Oct 31, 2016 Administered MEDICAL (GENERAL) HISTORY Type Description Date Medical History asthma Medical History Seasonal allergies Surgical History myringotomy with ventilating tube x 2 Surgical History [place] teeth removal 09/01/2015
--- OUTSIDE RECORDS SUMMARY | 2017-07-04 19:59 | XMS REPORT ---
Author Author NEISHA ARCE [facility] Address Unknown Care Team Providers Care Vp Human Resources Name Role Phone NEISHA ARCE Unavailable PROBLEMS Type Condition ICD9-CM Code FMQ44-OP Code Onset Dates Condition Status SNOMED Code Problem Ovarian cyst N83.20 Active 03799708 Problem Seasonal allergic rhinitis, unspecified allergic rhinitis trigger J30.2 Active 514789232 Problem Dermatitis L30.9 Active 14730713 Problem GERD (gastroesophageal reflux disease) K21.9 Active 774595389 Problem Diverticulitis of large intestine without perforation or abscess with bleeding K57.33 Active 3668929 Problem Asthma exacerbation J45.901 Active 176256987 Problem Acute exacerbation of asthma with allergic rhinitis J45.901 Active 98186230847535 Problem Asthma with acute exacerbation in adult J45.901 Active 868187229 Problem Mild intermittent asthma without complication J45.20 Active 696210179 ALLERGIES Substance Reaction Event Type Date Status Penicillin V Potassium Unknown Drug Allergy Oct, Active SOCIAL HISTORY Never Assessed PLAN OF CARE Activity Details Follow Up prn Reason:filling VITAL SIGNS MEDICATIONS Medication Instructions Dosage Frequency Start Date [...] the evening 24h January, 30 day(s) Active Depo-Provera 150 MG/ML Active RESULTS No Results PROCEDURES Procedure Date Ordered Result Body Site LTD ORAL EVALUATION - PROBLEM FOCUS Oct 13, 2016 INTRAORL-PERIAPICAL 1 FILM 60023 Oct 13, 2016 BITEWING - SINGLE FILM Oct 13, 2016 IMMUNIZATIONS No Known Immunizations MEDICAL (GENERAL) HISTORY Type Description Date Medical History asthma Medical History Seasonal allergies Surgical History myringotomy with ventilating tube x 2 Surgical History [place] teeth removal 09/01/2015
--- OUTSIDE RECORDS SUMMARY | 2017-07-04 20:00 | XMS REPORT ---
Author Author IVETH BENDER [facility] Address [address] [place] [address] Care Team Providers Care Legal Archivist Name Role Phone IVETH BENDER Unavailable PROBLEMS Type Condition ICD9-CM Code BQW60-XT Code Onset Dates Condition Status SNOMED Code Problem Ovarian cyst N83.20 Active 14115431 Problem Seasonal allergic rhinitis, unspecified allergic rhinitis trigger J30.2 Active 347741459 Problem Dermatitis L30.9 Active 45690805 Problem GERD (gastroesophageal reflux disease) K21.9 Active 078748754 Problem Diverticulitis of large intestine without perforation or abscess with bleeding K57.33 Active 0456685 Problem Asthma exacerbation J45.901 Active 237932011 Problem Acute exacerbation of asthma with allergic rhinitis J45.901 Active 08171552369707 Problem Asthma with acute exacerbation in adult J45.901 Active 076588348 Problem Mild intermittent asthma without complication J45.20 Active 308933588 ALLERGIES Substance Reaction Event Type Date Status Penicillin V Potassium Unknown Drug Allergy Nov, Active SOCIAL HISTORY Never Assessed PLAN OF CARE Activity Details Follow Up if not improving or reg follow up Reason: VITAL SIGNS Height 59 in 2016-11-08 Weight 87.4 lbs 2016-11-08 Temperature 98.6 degrees Fahrenheit 2016-11-08 Heart Rate 70 bpm 2016-11-08 Respiratory Rate 16 2016-11-08 BMI 17.65 kg/m2 2016-11-08 Blood pressure systolic 108 mmHg 2016-11-08 Blood pressure diastolic 72 mmHg 2016-11-08 MEDICATIONS Medication Instructions Dosage Frequency Start Date End Date Duration Status Flonase 50 mcg/actuation intranasally daily 1 spary each nostril 24h Aug Active Doxycycline Hyclate 100 mg Orally every 12 hrs 1 capsule 12h Nov, Nov, 14 days Active ProAir HFA 90 mcg/actuation inhale 1 puffs by Inhalation route every 4 hours as needed PRN shortness of breath/cough Aug, Active PredniSONE 20 mg Orally Once a day 1 tablet 24h Nov, Nov, 07 days Active Singulair 10 MG Orally Once a day 1 tablet in the evening 24h January, 30 day(s) Active Zyrtec Allergy 10mg oral daily 1 tablet 24h Active Depo-Provera 150 MG/ML Active Promethazine-Codeine 6.25-10 MG/5ML Orally every 6 hrs prn 5 ml as needed Nov, Active RESULTS No Results PROCEDURES No Known procedures IMMUNIZATIONS No Known Immunizations MEDICAL (GENERAL) HISTORY Type Description Date Medical History asthma Medical History Seasonal allergies Surgical History myringotomy with ventilating tube x 2 Surgical History [place] teeth removal 09/01/2015
[2017-07-04] MEDS ORDERED: MONT10TA24 (20:23)
[2017-07-04] MEDS ORDERED: FLUC150T2 (20:23)
[2017-07-04] MEDS ORDERED: KETOROLAC 30 MG/ML VIAL IVP STA (22:11)
[2017-07-04] MEDS ORDERED: NS IV 1000 ML 1,000 ML IV ONE (22:11)
[2017-07-04] MEDS ORDERED: ONDANSETRON 4 MG/2 ML (SDV) Z0FRAN IVP ONE (22:15)
[2017-07-04 22:16] LABS: BILIRUBIN,URINE NEGATIVE (NEGATIVE); KETONES,URINE NEGATIVE (NEGATIVE); LEUKOCYTE ESTERASE ,URINE 3+ (NEGATIVE); NITRITE,URINE NEGATIVE (NEGATIVE); PH,URINE 5 (5-9); PROTEIN,URINE NEGATIVE (NEGATIVE); UROBILINOGEN,URINE NORMAL (NORMAL)
[2017-07-04 22:26] LABS: WBC,URINE TNTC /HPF
[2017-07-04] MEDS ORDERED: diphenhydrAMINE 25 MG TAB (BENADRYL) PO ONE (22:45)
[2017-07-04] MEDS ORDERED: cefTRIAXone INJECTION 1,000 MG in NS (IVPB) 50 ML IV ONE (22:45)
[2017-07-04 22:49] LABS: BASOPHILS % (AUTO) 0 % (0-10); EOSINOPHILS % (AUTO) 0 % (0-10); LYMPHOCYTES # (AUTO) 1.9 X 10^3 (1.0-4.0); LYMPHOCYTES % (AUTO) 19 % (12-44); MEAN CORPUSCULAR HEMOGLOBIN 31 PG (25-34); MEAN CORPUSCULAR HGB CONC 34 G/DL (32-36); MEAN CORPUSCULAR VOLUME 90 FL (80-99); MEAN PLATELET VOLUME 9.3 FL (7.4-10.4); MONOCYTES # (AUTO) 0.6 X 10^3 (0.0-1.0); MONOCYTES % (AUTO) 6 % (0-12); NEUTROPHILS # (AUTO) 7.4 X 10^3 (1.8-7.8); NEUTROPHILS % (AUTO) 75 % (42-75); PLATELET COUNT 239 10^3/uL (130-400); RED BLOOD COUNT 4.41 10^6/uL (4.35-5.85); RED CELL DISTRIBUTION WIDTH 12.8 % (10.0-14.5); WHITE BLOOD COUNT 9.9 10^3/uL (4.3-11.0)
[2017-07-04 23:20] VITALS: BP 130/87
[2017-07-05 00:10] LABS: ALANINE AMINOTRANSFERASE 12 U/L (0-55); ALBUMIN 4.3 GM/DL (3.2-4.5); ANION GAP 10 MMOL/L (5-14); ASPARTATE AMINO TRANSFERASE 14 U/L (5-34); BILIRUBIN,TOTAL 0.7 MG/DL (0.1-1.0); BLOOD UREA NITROGEN 10 MG/DL (7-18); BUN/CREATININE RATIO 15; CALCIUM 9.5 MG/DL (8.5-10.1); CARBON DIOXIDE 24 MMOL/L (21-32); CHLORIDE 106 MMOL/L (98-107); CREATININE SERUM 0.68 MG/DL (0.60-1.30); GFR ESTIMATED > 60; GLUCOSE 93 MG/DL (70-105); SODIUM 140 MMOL/L (135-145); TOTAL PROTEIN 6.8 GM/DL (6.4-8.2)
--- NOTE | 2017-07-05 11:46 | ED Abdominal Pain ---
General Chief Complaint: Abdominal/GI Problems Stated Complaint: RT SIDED ABD PAIN Nursing Triage Note: c/o R sided abdomen pain x 2 weeks, patient reports was evaluated by PCP on the for this and no prescription was given. patient reports calling PCP today and being told to come to ER Sepsis Screen: No Definite Risk History of Present Illness Time Seen By Provider: 20:30 Initial Comments Patient has a history of recurrent abdominal pain and urinary tract infections. She is currently using Depo-Provera related to a right ovarian cyst. She reports since starting the Depo-Provera she has had urinary tract infections more frequently. She does not report sexual activity for greater than 6 months. She has no history of STI's. She denies any vaginal discharge. She does report urinary frequency but no discharge or hematuria. She denies vomiting, diarrhea or constipation. Timing/Duration: Intermittent (for 2 weeks) Severity/Quality: Moderate Location: RLQ Radiation: No Radiation Activities at Onset: None Modifying Factors: Improves With Lying down, Improves With Resting Associated Symptoms: Denies Symptoms Allergies and Home Medications Allergies Coded Allergies: Penicillins (Unverified Allergy, Unknown, 05/12/15) Uncoded Allergies: SULFA (Adverse Reaction, Unknown, N/V, 05/16/17) Home Medications Cetirizine HCl 10 Mg Capsule, 10 MG PO DAILY, (Reported) Fluconazole 150 Mg Tablet, (Reported) Montelukast Sodium 10 Mg Tablet, 10 MG PO DAILY, (Reported) Montelukast Sodium 10 Mg Tablet, (Reported) Review of Systems Constitutional: no symptoms reported, see HPI Gastrointestinal: See HPI, Abdominal Pain, Poor Appetite Genitourinary: See HPI, Denies Discharge, Frequency, Denies Flank Pain, Denies Hematuria All Other Systems Reviewed Negative Unless Noted: Yes Past Mcjotam-Iyqtmd-Nbzexn Hx Patient Social History Alcohol Use: Denies Use Recreational Drug Use: No Smoking Status: Never a Smoker Type Used: Cigarettes 2nd Hand Smoke Exposure: No Recent Foreign Travel: No Contact w/Someone Who Travel: No Recent Infectious Disease Expo: No Recent Hopitalizations: No Physical Abuse: No Sexual Abuse: No Immunizations Up To Date Tetanus Booster (TDap): Less than 5yrs Seasonal Allergies Seasonal Allergies: Yes Surgeries History of Surgeries: Yes (TUBES IN EARS ) Respiratory History of Respiratory Disorde: Yes Respiratory Disorders: Asthma Cardiovascular History of Cardiac Disorders: No Neurological History of Neurological Disord: No Reproductive System Hx Reproductive Disorders: No Sexually Transmitted Disease: No Gastrointestinal History of Gastrointestinal Di: No Musculoskeletal History of Musculoskeletal Dis: No Musculoskeletal Disorders: Fractures Endocrine History of Endocrine Disorders: No Cancer History of Cancer: No Psychosocial History of Psychiatric Problem: No Suicide Risk Score: 0 Integumentary History of Skin or Integumenta: No Blood Transfusions History of Blood Disorders: No Reviewed Nursing Assessment Reviewed/Agree w Nursing PMH: Yes Family Medical History Significant Family History: No Pertinent Family Hx Physical Exam Vital Signs VS - Last 72 Hours, by Label 07/04/17 20:19 Temp 98.7 Pulse 75 Resp 18 B/P (MAP) 130/87 Pulse Ox 99 Capillary Refill : Less Than 3 Seconds General Appearance: WD/WN, no apparent distress HEENT: PERRL/EOMI, normal ENT inspection, TMs normal, pharynx normal Neck: non-tender, full range of motion, supple, normal inspection Respiratory: chest non-tender, lungs clear, normal breath sounds Cardiovascular: normal peripheral pulses, regular rate, rhythm Gastrointestinal: normal bowel sounds, soft, tenderness (right lower quadrant.) Extremities: normal range of motion, non-tender, normal inspection, no pedal edema, no calf tenderness, normal capillary refill Back: normal inspection, no vertebral tenderness, CVA tenderness (R) (trace) Neurologic/Psychiatric: no motor/sensory deficits, alert, normal mood/affect, oriented x 3 Skin: normal color, warm/dry, other (skin turgor less than 2 seconds) Progress/Results/Core Measures Results/Orders Lab Results Laboratory Tests Test 07/04/17 19:52 07/04/17 21:26 07/04/17 22:35 Range/Units Lab Scanned Report LAB Reports [id number] Urine Color YELLOW Urine Clarity CLEAR Urine pH 5 5-9 Urine Specific [place] 1.025 H 1.016-1.022 Urine Protein NEGATIVE NEGATIVE Urine Glucose (UA) NEGATIVE NEGATIVE Urine Ketones NEGATIVE NEGATIVE Urine Nitrite NEGATIVE NEGATIVE Urine Bilirubin NEGATIVE NEGATIVE Urine Urobilinogen NORMAL NORMAL MG/DL Urine Leukocyte Esterase 3+ H NEGATIVE Urine RBC (Auto) 1+ H NEGATIVE Urine RBC 0-2 /HPF Urine WBC TNTC H /HPF Urine Squamous Epithelial Cells 2-5 /HPF Urine Crystals NONE /LPF Urine Bacteria MODERATE H /HPF Urine Casts NONE /LPF Urine Mucus LARGE H /LPF Urine Culture Indicated YES White Blood Count 9.9 4.3-11.0 10^3/uL Red Blood Count 4.41 4.35-5.85 10^6/uL Hemoglobin 13.5 11.5-16.0 G/DL Hematocrit 40 35-52 % Mean Corpuscular Volume 90 80-99 FL Mean Corpuscular Hemoglobin 31 25-34 PG Mean Corpuscular Hemoglobin Concent 34 32-36 G/DL Red Cell Distribution Width 12.8 10.0-14.5 % Platelet Count 239 130-400 10^3/uL Mean Platelet Volume 9.3 7.4-10.4 FL Neutrophils (%) (Auto) 75 42-75 % Lymphocytes (%) (Auto) 19 12-44 % Monocytes (%) (Auto) 6 0-12 % Eosinophils (%) (Auto) 0 0-10 % Basophils (%) (Auto) 0 0-10 % Neutrophils # (Auto) 7.4 1.8-7.8 X 10^3 Lymphocytes # (Auto) 1.9 1.0-4.0 X 10^3 Monocytes # (Auto) 0.6 0.0-1.0 X 10^3 Eosinophils # (Auto) 0.0 0.0-0.3 10^3/uL Basophils # (Auto) 0.0 0.0-0.1 10^3/uL Sodium Level 140 135-145 MMOL/L Potassium Level 4.0 3.6-5.0 MMOL/L Chloride Level 106 98-107 MMOL/L Carbon Dioxide Level 24 21-32 MMOL/L Anion Gap 10 5-14 MMOL/L Blood Urea Nitrogen 10 7-18 MG/DL Creatinine 0.68 0.60-1.30 MG/DL Estimat Glomerular Filtration Rate > 60 BUN/Creatinine Ratio 15 Glucose Level 93 70-105 MG/DL Calcium Level 9.5 8.5-10.1 MG/DL Total Bilirubin 0.7 0.1-1.0 MG/DL Aspartate Amino Transf (AST/SGOT) 14 5-34 U/L Alanine Aminotransferase (ALT/SGPT) 12 0-55 U/L Alkaline Phosphatase 52 40-136 U/L Total Protein 6.8 6.4-8.2 GM/DL Albumin 4.3 3.2-4.5 GM/DL My Orders Orders - KATELYN,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 Ua Culture If Indicated (07/04/17 22:08) Cbc With Automated Diff (07/04/17 22:11) Comprehensive Metabolic Panel (07/04/17 22:11) Ketorolac Injection (Toradol Injection) (07/04/17 22:11) Saline Lock/Iv-Start (07/04/17 22:11) Ns Iv 1000 Ml (Sodium Chloride 0.9%) (07/04/17 22:11) Ondansetron Injection (Zofran Injectio (07/04/17 22:15) Urine Culture (07/04/17 21:26) Ceftriaxone Injection (Rocephin Injectio (07/04/17 22:45) Diphenhydramine Tablet (Benadryl Tablet) (07/04/17 22:45) Vital Signs/I&O Vital Sign - Last 12Hours 07/04/17 20:19 Temp 98.7 Pulse 75 Resp 18 B/P (MAP) 130/87 Pulse Ox 99 Blood Pressure Mean: 101 Progress Note : Time: 20:30 Progress Note Initial evaluation completed, recommended labs, IV fluid normal saline 1 L, Toradol 30 mg IV and Zofran 4 mg IV. Will reevaluate. 2200 patient reports improvement in her pain and nausea. IV infusing. No requests at this time. 2245 labs all essentially normal, exception of UA showing urinary tract infection. Recommended starting with IV treatment here Rocephin 1 g. She does have allergies to penicillins, she is unsure if she has had cephalosporins in the past. We'll pre-treatment with Benadryl 25 mg by mouth. 2300 discharge planning reviewed with patient, recommended she follow up with Dr. Bunn as she has had more urinary tract infection since starting the Depo- Provera. All questions answered. Departure Impression Impression: Primary Impression: Urinary tract infection Qualified Codes: N30.01 - Acute cystitis with hematuria Disposition: HOME, SELF-CARE Condition: Improved Departure-Patient Inst. Decision time for Depature: 22:45 Referrals: [facility] (PCP) Primary Care Physician IVETH BENDER (Family) Primary Care Physician Patient Instructions: Acute Abdomen (Belly Pain), Adult (DC), Urinary Tract Infection, Adult (DC) Add. Discharge Instructions: Follow-up with Dr. Rowley the next week. See primary care provider in 2-3 days for results of urine culture to adjust antibiotics as needed. Take all antibiotics as prescribed. No baths, encourage showers only. Empty bladder frequently at least every 2 hours while awake. Increase water intake to 4-6 bottles per day. Eat fresh blueberries 1 cup daily and 1 container of yogurt daily. All discharge instructions reviewed with patient and/or family. Voiced understanding. Copy Copies To 1: KAYODE BUNN AMY ARNP Jul 05, 2017 11:46
== END 2017-07-04 23:20 | disposition home or self-care (01) ==
LOC: EDUNIT# 19:50 → ER 19:52
DX: N39.0 Urinary tract infection, site not specified (principal); J45.909 Unspecified asthma, uncomplicated
CPT/HCPCS: 36415; 80053; 81000; 85025; 87088; 96374; 96375

== ENCOUNTER 2017-07-26 18:14 | Emergency (ER) | payer SELFPAY ==
[~2017-07-26] VITALS: Ht 149.9 cm; Wt 36.3 kg
[~2017-07-26 18:14] MED LIST changes: +FLUC150T2; +MONT10TA24
--- OUTSIDE RECORDS SUMMARY | 2017-07-26 18:19 | XMS REPORT ---
Author Author MYRIAM KAYLEIGH Organization [facility] Address [address] [place] [address] Care Team Providers Care Java Application Developer Name Role Phone KAYLEIGH MIGUEL Unavailable PROBLEMS Type Condition ICD9-CM Code [id number] Code Onset Dates Condition Status SNOMED Code Problem Ovarian cyst N83.20 Active 16386175 Problem Seasonal allergic rhinitis, unspecified allergic rhinitis trigger J30.2 Active 990375375 Problem Dermatitis L30.9 Active 52739800 Problem GERD (gastroesophageal reflux disease) K21.9 Active 078561788 Problem Diverticulitis of large intestine without perforation or abscess with bleeding K57.33 Active 7662247 Problem Asthma exacerbation J45.901 Active 418549986 Problem Acute exacerbation of asthma with allergic rhinitis J45.901 Active 12049532369022 Problem Asthma with acute exacerbation in adult J45.901 Active 306483928 Problem Mild intermittent asthma without complication J45.20 Active 673892419 ALLERGIES Substance Reaction Event Type Date Status Penicillin V Potassium Unknown Drug Allergy January, Active SOCIAL HISTORY Never Assessed PLAN OF CARE Activity Details Follow Up 2 Weeks Reason: VITAL SIGNS Height 59 in 2017-01-22 Weight 87.6 lbs 2017-01-22 Temperature 98.1 degrees Fahrenheit 2017-01-22 Heart Rate 68 bpm 2017-01-22 Respiratory Rate 16 2017-01-22 BMI 17.69 kg/m2 2017-01-22 Blood pressure systolic 108 mmHg 2017-01-22 Blood pressure diastolic 70 mmHg 2017-01-22 MEDICATIONS Medication Instructions Dosage Frequency Start Date End Date Duration Status MiraLax - Orally Once a day 1 packet mixed with 8 ounces of fluid 24h Dec, Feb, 30 day(s) Active Depo-Provera 150 MG/ML Active ProAir HFA 90 mcg/actuation Inhalation every 4 hrs 2 puffs as needed 4h Aug, Active Zyrtec Allergy 10mg oral daily 1 tablet 24h Active Diflucan 100 mg Orally Three times a Week 1 tablet 15 May, 2017 25 May, 2017 10 day(s) Active Singulair 10 MG Orally Once a day 1 tablet in the evening 24h January, 30 day(s) Active Flonase 50 mcg/actuation intranasally daily 1 spary each nostril 24h Aug Active Cipro 500 mg Orally Twice a day 1 tablet 12h January, January, 05 days Active RESULTS Name Result Date Reference Range UA LONG DIP (IN HOUSE) 2017-01-22 Lot # [id number] Exp date 2017-12-08 Clarity Clear Color Yellow Odor None GLU Negative ESTELA Negative KET Negative SG 1.025 BLO 2+ pH 7.0 Protein Negative URO 0.2 NIT Negative AMANDA Negative Lot # Exp date PROCEDURES Procedure Date Ordered Result Body Site URINALYSIS, AUTO, W/O SCOPE January 22, 2017 IMMUNIZATIONS No Known Immunizations MEDICAL (GENERAL) HISTORY Type Description Date Medical History asthma Medical History Seasonal allergies Surgical History myringotomy with ventilating tube x 2 Surgical History [place] teeth removal 09/01/2015
--- OUTSIDE RECORDS SUMMARY | 2017-07-26 18:33 | XMS REPORT ---
Author Author [facility] Address [address] [place] [address] Care Team Providers Care Customer Retention Specialist Name Role Phone ANDRESBryan IVETH Unavailable PROBLEMS Type Condition ICD9-CM Code IRO33-ML Code Onset Dates Condition Status SNOMED Code Problem Ovarian cyst N83.20 Active 73314386 Problem Seasonal allergic rhinitis, unspecified allergic rhinitis trigger J30.2 Active 246871859 Problem Dermatitis L30.9 Active 63435126 Problem GERD (gastroesophageal reflux disease) K21.9 Active 222763248 Problem Diverticulitis of large intestine without perforation or abscess with bleeding K57.33 Active 7791610 Problem Asthma exacerbation J45.901 Active 352033256 Problem Acute exacerbation of asthma with allergic rhinitis J45.901 Active 39675688789609 Problem Asthma with acute exacerbation in adult J45.901 Active 046894116 Problem Mild intermittent asthma without complication J45.20 Active 549139798 ALLERGIES Substance Reaction Event Type Date Status Penicillin V Potassium Unknown Drug Allergy January, Active SOCIAL HISTORY Never Assessed PLAN OF CARE Activity Details Follow Up prn Reason: VITAL SIGNS Height 59 in 2017-02-01 Weight 89.1 lbs 2017-02-01 Temperature 98.8 degrees Fahrenheit 2017-02-01 Heart Rate 66 bpm 2017-02-01 Respiratory Rate 18 2017-02-01 BMI 17.99 kg/m2 2017-02-01 Blood pressure systolic 92 mmHg 2017-02-01 Blood pressure diastolic 68 mmHg 2017-02-01 MEDICATIONS Medication Instructions Dosage Frequency Start Date End Date Duration Status Flonase 50 mcg/actuation intranasally daily 1 spary each nostril 24h Aug Active Zyrtec Allergy 10mg oral daily 1 tablet 24h Active MiraLax - Orally Once a day 1 packet mixed with 8 ounces of fluid 24h Dec, Feb, 30 day(s) Active ProAir HFA 90 mcg/actuation Inhalation every 4 hrs 2 puffs as needed 4h 29 Aug, 2014 Active Depo-Provera 150 MG/ML Active PredniSONE 20 mg Orally Once a day 2 tablets daily x 3 days then 1 tablet daily x 3 days 24h January, January, 6 days Active Diflucan 150 MG Orally Once a day 1 tablet 24h January, 1 dose Active Levaquin 500 mg Orally Once a day 1 tablet 24h January, Feb, 10 day(s) Active Singulair 10 MG Orally Once a day 1 tablet in the evening 24h January, Active RESULTS No Results PROCEDURES No Known procedures IMMUNIZATIONS No Known Immunizations MEDICAL (GENERAL) HISTORY Type Description Date Medical History asthma Medical History Seasonal allergies Surgical History myringotomy with ventilating tube x 2 Surgical History [place] teeth removal 09/01/2015
[2017-07-26 19:16] LABS: BILIRUBIN,URINE NEGATIVE (NEGATIVE); KETONES,URINE 2+ (NEGATIVE); LEUKOCYTE ESTERASE ,URINE 3+ (NEGATIVE); NITRITE,URINE NEGATIVE (NEGATIVE); PH,URINE 5 (5-9); PROTEIN,URINE 1+ (NEGATIVE); UROBILINOGEN,URINE NORMAL (NORMAL)
--- NOTE | 2017-07-26 19:27 | Diagnostic Imaging Report ---
INDICATION: Shortness of breath. COMPARISON: 12/31/2016. FINDINGS: The lungs are clear. The heart and vessels are normal. There is no effusion or pneumothorax. IMPRESSION: Negative. Dictated by: Dictated on workstation # [id number]
[2017-07-26] MEDS ORDERED: CEFU250T80 PO (19:52)
[2017-07-26] MEDS ORDERED: D-ME118S33 PO (19:52)
--- NOTE | 2017-07-26 19:52 | ED General ---
General Chief Complaint: General Problems/Pain Stated Complaint: SINUS PROBLEMS;COUGH;POSSIBLE UTI Nursing Triage Note: PT TO ED W/ C/O CONGESTION, NON PRODUCTIVE COUGH SINCE SUNDAY. ALSO C/O FOUL SMELLING URINE W/ FREQUENCY. NO OTHER C/O VOICED Nursing Sepsis Screen: No Definite Risk Source of Information: Patient Exam Limitations: No Limitations History of Present Illness Time Seen by Provider: 19:49 Initial Comments She presents to the emergency room with a four-day history of nasal congestion, sore throat, nonproductive cough. She also reports foul-smelling urine and urinary frequency. No fevers. Timing/Duration: 1-2 Days Severity: Moderate Associated Systoms: Cough Allergies and Home Medications Allergies Coded Allergies: Penicillins (Unverified Allergy, Unknown, 05/12/15) Uncoded Allergies: SULFA (Adverse Reaction, Unknown, N/V, 05/16/17) Home Medications Cetirizine HCl 10 Mg Capsule, 10 MG PO DAILY, (Reported) Fluconazole 150 Mg Tablet, (Reported) Montelukast Sodium 10 Mg Tablet, 10 MG PO DAILY, (Reported) Montelukast Sodium 10 Mg Tablet, (Reported) Constitutional: see HPI EENTM: see HPI, nose congestion, throat pain Respiratory: see HPI, cough Cardiovascular: no symptoms reported Genitourinary: no symptoms reported Musculoskeletal: no symptoms reported Skin: no symptoms reported Psychiatric/Neurological: No Symptoms Reported Past Zgachgb-Vhjlnd-Jsjftb Hx Patient Social History Alcohol Use: Denies Use Recreational Drug Use: No Smoking Status: Never a Smoker Type Used: Cigarettes 2nd Hand Smoke Exposure: No Recent Foreign Travel: No Contact w/Someone Who Travel: No Recent Infectious Disease Expo: No Recent Hopitalizations: No Physical Abuse: No Sexual Abuse: No Mistreated: No Fear: No Immunizations Up To Date Tetanus Booster (TDap): Less than 5yrs Seasonal Allergies Seasonal Allergies: Yes Surgeries History of Surgeries: Yes (TUBES IN EARS ) Respiratory History of Respiratory Disorde: Yes Respiratory Disorders: Asthma Cardiovascular History of Cardiac Disorders: No Neurological History of Neurological Disord: No Reproductive System Hx Reproductive Disorders: No Sexually Transmitted Disease: No Gastrointestinal History of Gastrointestinal Di: No Musculoskeletal History of Musculoskeletal Dis: No Musculoskeletal Disorders: Fractures Endocrine History of Endocrine Disorders: No Cancer History of Cancer: No Psychosocial History of Psychiatric Problem: No Suicide Risk Score: 0 Integumentary History of Skin or Integumenta: No Blood Transfusions History of Blood Disorders: No Family Medical History Significant Family History: No Pertinent Family Hx Physical Exam Vital Signs Vital Sign - Last 12Hours 07/26/17 19:08 Temp 98.5 Pulse 84 Resp 18 B/P (MAP) 124/67 Pulse Ox 99 O2 Delivery Room Air Capillary Refill : Less Than 3 Seconds General Appearance: No Apparent Distress, WD/WN Eyes: Bilateral Eye Normal Inspection, Bilateral Eye PERRL, Bilateral Eye EOMI HEENT: PERRL/EOMI, TMs Normal, Normal ENT Inspection, Pharynx Normal Neck: Full Range of Motion, Normal Inspection Respiratory: Normal Breath Sounds, No Accessory Muscle Use, No Respiratory Distress Cardiovascular: Regular Rate, Rhythm, Normal Peripheral Pulses Gastrointestinal: Non Tender, Soft Extremity: Normal Capillary Refill, Normal Inspection Neurologic/Psychiatric: Alert, Oriented x3, No Motor/Sensory Deficits Skin: Normal Color, Warm/Dry Progress/Results/Core Measures Suspected Sepsis Recent Fever Within 48 Hours: No Infection Criteria Present: None New/Unexplained Altered Menta: No Sepsis Screen: No Definite Risk Sepsis Diagnosis: SIRS Temperature:98.5 Pulse: 84 Respiratory Rate: 18 Blood Pressure 124 /67 Mean: 86 Results/Orders Lab Results Laboratory Tests Test 07/26/17 19:10 Range/Units Urine Color SUDHEER H Urine Clarity CLEAR Urine pH 5 5-9 Urine Specific [place] 1.025 H 1.016-1.022 Urine Protein 1+ H NEGATIVE Urine Glucose (UA) NEGATIVE NEGATIVE Urine Ketones 2+ H NEGATIVE Urine Nitrite NEGATIVE NEGATIVE Urine Bilirubin NEGATIVE NEGATIVE Urine Urobilinogen NORMAL NORMAL MG/DL Urine Leukocyte Esterase 3+ H NEGATIVE Urine RBC (Auto) 1+ H NEGATIVE Urine RBC 2-5 H /HPF Urine WBC 10-25 H /HPF Urine Crystals NONE /LPF Urine Bacteria FEW H /HPF Urine Casts NONE /LPF Urine Mucus LARGE H /LPF Urine Culture Indicated YES My Orders Orders - LEO MOSER APRN Urine Bedside (07/26/17 19:13) Chest Pa/Lat (2 View) (07/26/17 19:13) Vital Signs/I&O Vital Sign - Last 12Hours 07/26/17 19:08 Temp 98.5 Pulse 84 Resp 18 B/P (MAP) 124/67 Pulse Ox 99 O2 Delivery Room Air Capillary Refill : Less Than 3 Seconds Blood Pressure Mean: 86 Departure Impression Impression: Primary Impression: Urinary tract infection Additional Impression: Viral upper respiratory infection Disposition: 01 HOME, SELF-CARE Condition: Stable Departure-Patient Inst. Decision time for Depature: 19:51 Referrals: [facility] (PCP) Primary Care Physician IVETH BENDER (Family) Primary Care Physician Patient Instructions: Urinary Tract Infection, Adult (DC), VIRAL SYNDROME Add. Discharge Instructions: 1. Decongestant/antihistamine medication as directed. Antibiotic for a bladder infection as directed. All discharge instructions reviewed with patient and/or family. Voiced understanding. Scripts Cefuroxime Axetil (Cefuroxime) 250 Mg Tablet 250 MG PO BID, #10 TAB Prov: LEO MOSER APRN 07/26/17 D-Methorphan Hb/P-Epd HCl/Bpm (Bromfed Dm Cough Syrup) 118 Ml Syrup 5 ML PO Q6H Y for CONGESTION, #120 ML Prov: LEO MOSER APRN 07/26/17 LEO MOSER APRN Jul 26, 2017 19:52
[2017-07-26 19:55] VITALS: BP 0/0
[2017-07-26] MEDS: LEVOFLOXACIN 500 MG TAB (LEVAQUIN) PO ONE (19:55)
[2017-07-27] MEDS: LEVOFLOXACIN 500 MG TAB (LEVAQUIN) ONE (03:14)
== END 2017-07-26 19:55 | disposition home or self-care (01) ==
LOC: EDUNIT# 18:14 → ER 18:15
DX: J06.9 Acute upper respiratory infection, unspecified (principal); N39.0 Urinary tract infection, site not specified; J45.909 Unspecified asthma, uncomplicated
CPT/HCPCS: 71020; 81000; 87088; 99283

== ENCOUNTER 2017-12-15 19:18 | Emergency (ER) | payer SELFPAY ==
[~2017-12-15] VITALS: Ht 149.9 cm; Wt 36.6 kg
[~2017-12-15 19:18] MED LIST changes: +CEFU250T80 PO; +D-ME118S33 PO
--- OUTSIDE RECORDS SUMMARY | 2017-12-15 19:28 | XMS REPORT ---
Author Author LEXX OLMOS [facility] Address [address] [place] [address] Care Team Providers Care Financial Management Analyst Name Role Phone [email or web address] Unavailable PROBLEMS Type Condition ICD9-CM Code LQS41-LZ Code Onset Dates Condition Status SNOMED Code Problem Exacerbation of asthma, unspecified asthma severity, unspecified whether persistent J45.901 Active 748194369 Problem Slow transit constipation K59.01 Active 89331284 Problem Seasonal allergic rhinitis, unspecified allergic rhinitis trigger J30.2 Active 332966327 Problem Ovarian cyst N83.20 Active 43388761 Problem GERD (gastroesophageal reflux disease) K21.9 Active 311601325 Problem Mild intermittent asthma without complication J45.20 Active 384355548 ALLERGIES Substance Reaction Event Type Date Status Penicillin V Potassium Unknown Drug Allergy Feb, Active ENCOUNTERS Encounter Location Date Diagnosis [facility] [address] [address] Nov, Exacerbation of asthma, unspecified asthma severity, unspecified whether persistent J45.901 [facility] [address] [place] [id number] [place] [address] Nov, Acute frontal sinusitis, recurrence not specified J01.10 ; Post-nasal drainage R09.82 and Chronic asthma without complication, unspecified asthma severity, unspecified whether persistent J45.909 [facility] [id number] [place] [address] Sep, Acute cystitis with hematuria N30.01 and Dysuria R30.0 [facility] [address] [place] [id number] [place] [address] [id number] Sep, [facility] [id number] [place] [address]598 Sep, Dysuria R30.0 [facility] [id number] [place] [address] [id number] Sep, Dental examination Z01.20 [place] [address] [address] 08 Sep, 2017 Encounter for dental examination and cleaning with abnormal findings Z01.21 [facility] [address] [address] 08 Sep, 2017 Tooth pain K08.89 [place] [address] [address] Sep, Nevoid hyperpigmentation L81.[address] [address] Aug, Nevoid hyperpigmentation L81.[address] [address] Aug, Sore throat J02.9 ; Bronchitis J40 and Irritated nevus D22.9 [place] [id number] [place] [address]09- 8[address] Aug, Dysuria R30.0 ; Acute cystitis with hematuria N30.01 ; Vaginal yeast infection B37.3 and Slow transit constipation K59.01 [facility] [place] [id number] [place] [address] Jul, [facility] [id number] [place] [address] [phone] Jun, Dental examination Z01.20 [facility] [place] [id number] [place] [address]641 Jun, Fluid level behind tympanic membrane of both ears H65.93 [facility] [place] [id number] [place] [address]709 [address]3991 Jun, Potential exposure to STD Z20.2 ; Dysuria R30.0 ; Vaginal discharge N89.8 and Candidiasis of female genitalia B37.3 [facility] [address] [place] [address] [id number] Jun, Dental examination Z01.20 [facility] [id number] [place] [address] [id number] May, Dental examination Z01.20 [facility] [id number] [place] [address] [id number] May, Dental examination Z01.20 [facility] [address] [id number] May, Dental examination Z01.20 [facility] [address] 654118- [address] Apr, Dysfunction of both eustachian tubes H69.83 [facility] [address] [address] Apr, GERD (gastroesophageal reflux disease) K21.9 and Sore throat J02.9 [facility] [id number] [place] [address] [phone] Apr, Dental examination Z01.20 [facility] [address] [address] Apr, Asthma exacerbation J45.901 [facility] [id number] [place] [address] [id number] Mar, Dental examination Z01.20 [facility] [id number] [place] [address] [phone] Feb, Dental examination Z01.20 [facility] [address] [address] Feb, Middle ear effusion, bilateral H65.93 [facility] [address] [address] Feb, Dysuria R30.0 and Diverticulitis of large intestine without perforation or abscess with bleeding K57.33 [facility] [address] [address] January, Asthma with acute exacerbation in adult J45.901 [place] [address] [address] January, Dysuria R30.0 ; Vaginal discharge N89.8 and Acute non- recurrent maxillary sinusitis J01.00 [place] [address] [address]- [address] Dec, [place] [address] [address] Dec, Sore throat J02.9 ; Acute mucoid otitis media of left ear H65.112 and Acute non-recurrent maxillary sinusitis J01.00 [place] [address] [address]- [address]60 Dec, Bronchitis J40 [facility] [place] [address] [address] Dec, Shortness of breath R06.02 and Mild intermittent asthma without complication J45.20 [place] [address] [address] Nov, Asthma exacerbation J45.901 and Bronchitis J40 [place] [address] [address] Oct, Acute mucoid otitis media of both ears H65.113 and Acute non -recurrent maxillary sinusitis J01.00 [facility] [address] [id number] [place] [address] [id number] Oct, Dental examination Z01.20 [facility] [address] [address] Sep, Exposure to influenza Z20.828 and Upper respiratory tract infection, unspecified type J06.9 [facility] [id number] [place] [address] Aug, Acute exacerbation of asthma with allergic rhinitis J45.901 [facility] [address] [address] 15 Aug, 2016 Burning with urination R30.0 and Hematuria R31.9 [place] [address] [address] 08 Aug, 2016 Seasonal allergic rhinitis, unspecified allergic rhinitis trigger J30.2 and Dermatitis L30.9 [place] [address] [address]- [address] 17 Jul, 2016 Follow up Z09 [place] [address] 9[address]06- [address] 15 Jul, 2016 [place] [address] [address]107[address]57 10 Jul, 2016 Dysuria R30.0 ; Acute vaginitis N76.0 and PID (acute pelvic inflammatory disease) N73.0 [place] [address] [address]67[address] 02 Jul, 2016 Sore throat J02.9 [facility] [place] [address] [address] Jun, Acute otitis externa of both ears, unspecified type H60.503 [facility] [address] [address] 29 May, 2016 Sore throat J02.9 and Pharyngitis, unspecified etiology J02.9 [facility] [address] [place] [id number] [place] [address]187 -9906 Apr, Dysuria R30.0 [facility] [place] [address] [address] 18 Mar, 2016 Viral infection B34.9 [facility] [place] [address] 9[address] 07 Mar, 2016 Dermatitis L30.9 [place] [address] [place] [address] 27 Feb, 2016 Annual physical exam Z00.00 and Screen for STD (sexually transmitted disease) Z11.3 [facility] [address] [address] 13 Feb, 2016 Pain with urination R30.[address] [address] 03 Feb, 2016 Other seasonal allergic rhinitis J30.2 [place] [address] [address]12- 98[address] 29 Nov, 2015 Cough R05 and Viral syndrome B34.[address] [address]- [address] 22 Nov, 2015 Oral contraceptive pill surveillance Z30.41 and Left ovarian cyst N83.[address] [address]- 1991 16 Nov, 2015 Ovarian cyst N83.20 and Otitis media of both ears H66.[address] [address]- [address] 07 Nov, 2015 Sore throat J02.9 and Streptococcal pharyngitis J02.0 [place] [id number] [place] [address] 15687- 0958 17 Oct, 2015 Ovarian cyst N83.20 ; Hematuria R31.9 ; Urinary crystals R82.99 ; Left sided abdominal pain R10.9 and Allergic rhinitis J30.9 [place] [address] [id number] [place] [address]- [address] 14 Oct, [address] [address]- [address]60 11 Oct, 2015 Left lower quadrant pain R10.32 ; Dysuria R30.0 ; History of constipation Z87.19 ; Routine screening for STI (sexually transmitted infection) Z11.3 ; CVA tenderness M54.9 ; Lower abdominal tenderness R10.819 ; Vaginal itching L29.8 and Family history of endometriosis Z84.2 [facility] [address] [place] [address]36- 1577 Oct, Asthma attack 493.92 ; UTI symptoms R39.9 and Sinusitis 473.9 [facility] [address] [place] [address] [id number] Aug, Dental examination Z01.20 [place] [address] [address]- [address]26 Jul, Scabies B86 [place] [address] 57081- 2792 Jun, Otitis externa of both ears H60.93 [place] [address] [id number] [place] [address] 48979- 4555 May, Asthma attack 493.92 [place] [address] 19289- 5781 Apr, Otitis externa of both ears 380.10 [place] [address] [place] [id number] [place] [address] 7[address]27- 8130 Apr, Insect bite 919.4 [place] [address] [place] [id number] [place] [address] 47289- 8383 Apr, Infective otitis externa 380.10 [place] [address] [place] [id number] [place] [address] 8[address]37- 3142 Mar, Acute sinusitis 461.9 [place] [address] [place] [id number] [place] [address] 47385- 5743 Mar, Acute pharyngitis 462 [place] [address] [place] [id number] [place] [address] 89404- 4061 Feb, Otitis media of both ears 382.9 [place] [address] [place] [id number] [place] [address] 41443- 6217 Feb, Dysuria 788.1 and Urinary tract infection 599.0 [place] [id number] [place] [address] Feb, Dysuria 788.1 [facility] [id number] [place] [address], [place] [address] January, Sinusitis 473.9 [facility] [address] [place] [address] Dec, [facility] [id number] [place] [address], [place] [address]- [address] Dec, [facility] [id number] [place] [address] Nov, [facility] [id number] [place] [address], [place] [address]- [address] Nov, [facility] [id number] [place] [address] Oct, [facility] [id number] [place] [address] Oct, [facility] [id number] [place] [address]- [address] Oct, [facility] [id number] [place] [address] Oct, [facility] [id number] [place] [address]- 8[address] Oct, [facility] [address] [address] Oct, [facility] [id number] [address] Aug, [facility] [id number] [address] Aug, [facility] [id number] [place] [address]- 5810 Aug, [facility] [address] [place] [id number] [address] Aug, IMMUNIZATIONS No Known Immunizations SOCIAL HISTORY Never Assessed REASON FOR VISIT bilateral earache for a week. pt is also complaining of dizziness. connie, stated that she gets ear infections frequently. PLAN OF CARE Activity Details Follow Up prn Reason: VITAL SIGNS Height 59 in 2017-03-03 Weight 89.8 lbs 2017-03-03 Temperature 97.9 degrees Fahrenheit 2017-03-03 Heart Rate 68 bpm 2017-03-03 Respiratory Rate 18 2017-03-03 BMI 18.14 kg/m2 2017-03-03 Blood pressure systolic 100 mmHg 2017-03-03 Blood pressure diastolic 58 mmHg 2017-03-03 MEDICATIONS Medication Instructions Dosage Frequency Start Date End Date Duration Status PredniSONE 20 MG Orally Once a day 2 tablet 24h Feb, Feb, 5 days Active Tramadol HCl 50 mg Orally every 6 hrs 1 tablet as needed 6h Feb, Active Cipro 500 mg Orally Twice a day 1 tablet 12h Feb, Feb, 07 days Active Depo-Provera 150 MG/ML Active Promethazine HCl 25 MG Orally every 12 hrs 1 tablet as needed 12h Feb, Mar, 30 day(s) Active Singulair 10 MG Orally Once a day 1 tablet in the evening 24h January, Active ProAir HFA 90 mcg/actuation Inhalation every 4 hrs 2 puffs as needed 4h Aug, Active Zyrtec Allergy 10mg oral daily 1 tablet 24h Active Flonase 50 mcg/actuation intranasally daily 1 spary each nostril 24h Aug Active RESULTS No Results PROCEDURES No Known procedures INSTRUCTIONS MEDICATIONS ADMINISTERED No Known Medications MEDICAL (GENERAL) HISTORY Type Description Date Medical History asthma Medical History Seasonal allergies Surgical History myringotomy with ventilating tube x 2 Surgical History Mckenna teeth removal 09/01/2015
--- OUTSIDE RECORDS SUMMARY | 2017-12-15 19:29 | XMS REPORT | Continuity of Care Document ---
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 plasma alanine aminotransferase measurement (enzymatic activity/volume ) 9 U/L 0-55 Serum or plasma protein measurement (mass/volume) 5.9 g/dL 6.4-8.2 Serum or plasma albumin measurement (mass/volume) 4.1 g/dL 3.2-4.5 Lipase - 10/14/16 19:16 Lipase 31 U/L 8-78 Complete urinalysis with reflex to culture - 12/31/16 21:15 Urine color determination YELLOW NRG Urine clarity determination CLEAR NRG Urine pH measurement by test strip 8 5-9 Specific gravity of urine by test strip 1.010 1.016- 1.022 Urine protein assay by test strip, semi-quantitative NEGATIVE NEGATIVE Urine glucose detection by automated test strip NEGATIVE NEGATIVE Erythrocytes detection in urine sediment by light microscopy NEGATIVE NEGATIVE Urine ketones detection by automated test strip NEGATIVE NEGATIVE Urine nitrite detection by test strip NEGATIVE NEGATIVE Urine total bilirubin detection by test strip NEGATIVE NEGATIVE Urine urobilinogen measurement by automated test strip (mass/volume) NORMAL NORMAL Urine leukocyte esterase detection by dipstick NEGATIVE NEGATIVE Automated urine sediment erythrocyte count by microscopy (number/high power field) RARE NRG Automated urine sediment leukocyte count by microscopy (number/high power field ) RARE NRG Bacteria detection in urine sediment by light microscopy NEGATIVE NRG Squamous epithelial cells detection in urine sediment by light microscopy 2-5 NRG Crystals detection in urine sediment by light microscopy NONE NRG Casts detection in urine sediment by light microscopy NONE NRG Mucus detection in urine sediment by light microscopy NEGATIVE NRG Complete urinalysis with reflex to culture NO NRG Urine Culture, Routine - 02/26/17 17:58 Urine Culture, Routine Note Complete blood count (CBC) with automated white blood cell (WBC) differential - 05/14/17 13:00 Blood leukocytes automated count (number/volume) 6.6 10*3/uL 4.3-11.0 Blood erythrocytes automated count (number/volume) 4.60 10*6/uL 4.35-5.85 Venous blood hemoglobin measurement (mass/volume) 14.0 g/dL 11.5-16.0 Blood hematocrit (volume fraction) 42 % 35-52 Automated erythrocyte mean corpuscular volume 91 [foz_us] 80-99 Automated erythrocyte mean corpuscular hemoglobin (mass per erythrocyte) 30 pg 25-34 Automated erythrocyte mean corpuscular hemoglobin concentration measurement ( mass/volume) 34 g/dL 32-36 Automated erythrocyte distribution width ratio 12.6 % 10.0-14.5 Automated blood platelet count (count/volume) 207 10*3/uL 130-400 Automated blood platelet mean volume measurement 9.2 [foz_us] 7.4-10.4 Automated blood neutrophils/100 leukocytes 38 % 42-75 Automated blood lymphocytes/100 leukocytes 54 % 12-44 Blood monocytes/100 leukocytes 7 % 0-12 Automated blood eosinophils/100 leukocytes 1 % 0-10 Automated blood basophils/100 leukocytes 1 % 0-10 Blood neutrophils automated count (number/volume) 2.5 10*3 1.8-7.8 Blood lymphocytes automated count (number/volume) 3.5 10*3 1.0-4.0 Blood monocytes automated count (number/volume) 0.5 10*3 0.0-1.0 Automated eosinophil count 0.1 10*3/uL 0.0-0.3 Automated blood basophil count (count/volume) 0.1 10*3/uL 0.0-0.1 Whole blood basic metabolic panel - 05/14/17 13:00 Serum or plasma sodium measurement (moles/volume) 142 mmol/L 135-145 Serum or plasma potassium measurement (moles/volume) 3.2 mmol/L 3.6-5.0 Serum or plasma chloride measurement (moles/volume) 111 mmol/L 98-107 Carbon dioxide 18 mmol/L 21-32 Serum or plasma anion gap determination (moles/volume) 13 mmol/L 5-14 Serum or plasma urea nitrogen measurement (mass/volume) 9 mg/dL 7-18 Serum or plasma creatinine measurement (mass/volume) 0.72 mg/dL 0.60-1.30 Serum or plasma urea nitrogen/creatinine mass ratio 13 NRG Serum or plasma creatinine measurement with calculation of estimated glomerular filtration rate > NRG Serum or plasma glucose measurement (mass/volume) 102 mg/dL 70-105 Serum or plasma calcium measurement (mass/volume) 9.1 mg/dL 8.5-10.1 Complete urinalysis with reflex to culture - 05/14/17 13:05 Urine color determination YELLOW NRG Urine clarity determination CLEAR NRG Urine pH measurement by test strip 5 5-9 Specific gravity of urine by test strip 1.025 1.016- 1.022 Urine protein assay by test strip, semi-quantitative 1+ NEGATIVE Urine glucose detection by automated test strip NEGATIVE NEGATIVE Erythrocytes detection in urine sediment by light microscopy NEGATIVE NEGATIVE Urine ketones detection by automated test strip NEGATIVE NEGATIVE Urine nitrite detection by test strip POSITIVE NEGATIVE Urine total bilirubin detection by test strip NEGATIVE NEGATIVE Urine urobilinogen measurement by automated test strip (mass/volume) NORMAL NORMAL Urine leukocyte esterase detection by dipstick 1+ NEGATIVE Automated urine sediment erythrocyte count by microscopy (number/high power field) NONE NRG Automated urine sediment leukocyte count by microscopy (number/high power field ) [HPF] NRG Bacteria detection in urine sediment by light microscopy TRACE NRG Squamous epithelial cells detection in urine sediment by light microscopy 2-5 NRG Crystals detection in urine sediment by light microscopy NONE NRG Casts detection in urine sediment by light microscopy NONE NRG Mucus detection in urine sediment by light microscopy NEGATIVE NRG Complete urinalysis with reflex to culture YES NRG Bacterial urine culture - 05/14/17 13:05 URINE CULTURE RESULTS <10,000/ML NRG Genital Culture, Routine - 06/28/17 14:39 Genital Culture, Routine Note CULTURE, GENITAL - 06/28/17 14:39 Genital Culture, Routine Final report NRG Result 1 NRG Complete urinalysis with reflex to culture - 07/04/17 21:26 Urine color determination YELLOW NRG Urine clarity determination CLEAR NRG Urine pH measurement by test strip 5 5-9 Specific gravity of urine by test strip 1.025 1.016- 1.022 Urine protein assay by test strip, semi-quantitative NEGATIVE NEGATIVE Urine glucose detection by automated test strip NEGATIVE NEGATIVE Erythrocytes detection in urine sediment by light microscopy 1+ NEGATIVE Urine ketones detection by automated test strip NEGATIVE NEGATIVE Urine nitrite detection by test strip NEGATIVE NEGATIVE Urine total bilirubin detection by test strip NEGATIVE NEGATIVE Urine urobilinogen measurement by automated test strip (mass/volume) NORMAL NORMAL Urine leukocyte esterase detection by dipstick 3+ NEGATIVE Automated urine sediment erythrocyte count by microscopy (number/high power field) [HPF] NRG Automated urine sediment leukocyte count by microscopy (number/high power field ) TNTC NRG Bacteria detection in urine sediment by light microscopy MODERATE NRG Squamous epithelial cells detection in urine sediment by light microscopy 2-5 NRG Crystals detection in urine sediment by light microscopy NONE NRG Casts detection in urine sediment by light microscopy NONE NRG Mucus detection in urine sediment by light microscopy LARGE NRG Complete urinalysis with reflex to culture YES NRG Bacterial urine culture - 07/04/17 21:26 URINE CULTURE RESULTS <10,000/ML NRG Complete blood count (CBC) with automated white blood cell (WBC) differential - 07/04/17 22:35 Blood leukocytes automated count (number/volume) 9.9 10*3/uL 4.3-11.0 Blood erythrocytes automated count (number/volume) 4.41 10*6/uL 4.35-5.85 Venous blood hemoglobin measurement (mass/volume) 13.5 g/dL 11.5-16.0 Blood hematocrit (volume fraction) 40 % 35-52 Automated erythrocyte mean corpuscular volume 90 [foz_us] 80-99 Automated erythrocyte mean corpuscular hemoglobin (mass per erythrocyte) 31 pg 25-34 Automated erythrocyte mean corpuscular hemoglobin concentration measurement ( mass/volume) 34 g/dL 32-36 Automated erythrocyte distribution width ratio 12.8 % 10.0-14.5 Automated blood platelet count (count/volume) 239 10*3/uL 130-400 Automated blood platelet mean volume measurement 9.3 [foz_us] 7.4-10.4 Automated blood neutrophils/100 leukocytes 75 % 42-75 Automated blood lymphocytes/100 leukocytes 19 % 12-44 Blood monocytes/100 leukocytes 6 % 0-12 Automated blood eosinophils/100 leukocytes 0 % 0-10 Automated blood basophils/100 leukocytes 0 % 0-10 Blood neutrophils automated count (number/volume) 7.4 10*3 1.8-7.8 Blood lymphocytes automated count (number/volume) 1.9 10*3 1.0-4.0 Blood monocytes automated count (number/volume) 0.6 10*3 0.0-1.0 Automated eosinophil count 0.0 10*3/uL 0.0-0.3 Automated blood basophil count (count/volume) 0.0 10*3/uL 0.0-0.1 Comprehensive metabolic panel - 07/04/17 22:35 Serum or plasma sodium measurement (moles/volume) 140 mmol/L 135-145 Serum or plasma potassium measurement (moles/volume) 4.0 mmol/L 3.6-5.0 Serum or plasma chloride measurement (moles/volume) 106 mmol/L 98-107 Carbon dioxide 24 mmol/L 21-32 Serum or plasma anion gap determination (moles/volume) 10 mmol/L 5-14 Serum or plasma urea nitrogen measurement (mass/volume) 10 mg/dL 7-18 Serum or plasma creatinine measurement (mass/volume) 0.68 mg/dL 0.60-1.30 Serum or plasma urea nitrogen/creatinine mass ratio 15 NRG Serum or plasma creatinine measurement with calculation of estimated glomerular filtration rate > NRG Serum or plasma glucose measurement (mass/volume) 93 mg/dL 70-105 Serum or plasma calcium measurement (mass/volume) 9.5 mg/dL 8.5-10.1 Serum or plasma total bilirubin measurement (mass/volume) 0.7 mg/dL 0.1-1.0 Serum or plasma alkaline phosphatase measurement (enzymatic activity/volume) 52 U/L 40-136 Serum or plasma aspartate aminotransferase measurement (enzymatic activity/ volume) 14 U/L 5-34 Serum or plasma alanine aminotransferase measurement (enzymatic activity/volume ) 12 U/L 0-55 Serum or plasma protein measurement (mass/volume) 6.8 g/dL 6.4-8.2 Serum or plasma albumin measurement (mass/volume) 4.3 g/dL 3.2-4.5 Complete urinalysis with reflex to culture - 07/26/17 19:10 Urine color determination SUDHEER NRG Urine clarity determination CLEAR NRG Urine pH measurement by test strip 5 5-9 Specific gravity of urine by test strip 1.025 1.016- 1.022 Urine protein assay by test strip, semi-quantitative 1+ NEGATIVE Urine glucose detection by automated test strip NEGATIVE NEGATIVE Erythrocytes detection in urine sediment by light microscopy 1+ NEGATIVE Urine ketones detection by automated test strip 2+ NEGATIVE Urine nitrite detection by test strip NEGATIVE NEGATIVE Urine total bilirubin detection by test strip NEGATIVE NEGATIVE Urine urobilinogen measurement by automated test strip (mass/volume) NORMAL NORMAL Urine leukocyte esterase detection by dipstick 3+ NEGATIVE Automated urine sediment erythrocyte count by microscopy (number/high power field) [HPF] NRG Automated urine sediment leukocyte count by microscopy (number/high power field ) [HPF] NRG Bacteria detection in urine sediment by light microscopy FEW NRG Crystals detection in urine sediment by light microscopy NONE NRG Casts detection in urine sediment by light microscopy NONE NRG Mucus detection in urine sediment by light microscopy LARGE NRG Complete urinalysis with reflex to culture YES NRG Bacterial urine culture - 07/26/17 19:10 URINE CULTURE RESULTS UNLESS REQUESTED NRG TISSUE, SPECIMEN A - 08/28/17 17:00 A SOURCE NRG A GROSS DESCRIPTION NRG A DIAGNOSIS NRG CULTURE, URINE - 10/02/17 10:10 CULTURE, URINE, ROUTINE SEE NOTE NRG CULTURE, URINE - 10/10/17 19:08 CULTURE, URINE, ROUTINE SEE NOTE NRG Encounters ACCT No. Visit Date/Time Discharge Status Pt. Type Provider Facility Loc./Unit Complaint [id number] 10/22/2014 13:30:00 10/22/2014 23:59:59 CLS Outpatient SOLITARIO BENDER APRNNYRuben Adams [id number] 10/20/2014 09:21:00 10/20/2014 23:59:59 CLS Outpatient IVETH BENDER APRN [id number] 09/07/2014 15:17:00 09/07/2014 23:59:59 CLS Outpatient IVETH BENDER APRN [id number] 08/19/2014 13:29:00 08/19/2014 23:59:59 CLS Outpatient JOSE RAMON PALOMO APRN [id number] 07/01/2017 12:06:00 Document Registration [id number] 08/26/2016 07:05:00 Document Registration [id number] 06/14/2015 03:00:16 ACT Document Registration [id number] 07/26/2017 18:15:00 07/26/2017 19:55:00 DIS Emergency LEO MOSER APRN [facility] ER SINUS PROBLEMS;COUGH; POSSIBLE UTI [id number] 07/04/2017 19:52:00 07/04/2017 23:20:00 DIS Emergency NAKUL ZEPEDA [facility] ER RT SIDED ABD PAIN [id number] 05/14/2017 12:55:00 05/14/2017 13:36:00 DIS Emergency LEO MOSER APRN [facility] ER THINKS SHE HAS A UTI [id number] 12/31/2016 21:07:00 12/31/2016 21:43:00 DIS Emergency LEO MOSER APRN [facility] ER ABD PAIN, BLOOD IN URINE, FREQUENT URINATION [id number] 10/14/2016 17:39:00 10/14/2016 21:00:00 DIS Emergency BELINDA GRAJEDA [facility] ER ABD SWELLING/PAIN/ NAUSEA/UTI [id number] 09/25/2016 01:44:00 09/25/2016 02:16:00 DIS Emergency LAURIE DIAZ MD [facility] ER LEGS NUMB, BODY SHAKES , CHEST PAIN [id number] 08/30/2016 05:32:00 08/30/2016 09:11:00 DIS Emergency LAURIE DIAZ MD [facility] ER L SIDE PAIN [id number] 07/25/2016 10:54:00 07/25/2016 11:12:00 DIS Emergency LEO MOSER APRN [facility] ER POSS MED REACTION FACIAL SWELLING/RASH [id number] 07/21/2016 12:33:00 07/21/2016 16:48:00 DIS Emergency ABBY RMOO DO [facility] ER ABD PAIN [id number] 07/17/2016 13:42:00 07/17/2016 23:59:59 CLS Emergency LEO MOSER APRN [facility] ER SORE THROAT SWOLLEN GLANDS BLISTERS IN MOUTH [id number] 05/21/2016 01:58:00 05/21/2016 02:58:00 DIS Emergency EDDA SOARES, [place] T [facility] ER R LEG BUG BITE [id number] 04/28/2016 19:55:00 04/28/2016 20:28:00 DIS Emergency LEO MOSER APRN [facility] ER CONGESTION,FEVER,POSSIBLE [id number] 03/30/2016 19:48:00 03/30/2016 20:50:00 DIS Emergency BELINDA GRAJEDA [facility] ER RASH ON LEFT ARM [id number] 02/22/2016 22:56:00 02/22/2016 23:42:00 DIS Emergency ABBY ROMO DO [facility] ER TONGUE SWELLING AND BLISTERS [id number] 01/10/2016 10:57:00 01/10/2016 23:59:59 CLS Outpatient KAYODE BUNN DO [facility] RAD CHRONIC RUQ PAIN,OVARIAN CYST [id number] 12/14/2015 19:55:00 12/14/2015 21:25:00 DIS Emergency LAURIE DIAZ MD [facility] ER CP,SOA [id number] 06/14/2015 02:40:00 06/14/2015 03:11:00 DIS Emergency HEATHER SOARES, ROSANNE Miranda [facility] ER CONGESTION [id number] 05/12/2015 21:12:00 05/12/2015 23:08:00 DIS Emergency ABBY ROMO DO [facility] ER POSSIBLE ALLERGIC REACTION TO MEDS [id number] 04/09/2015 05:54:00 04/09/2015 08:30:00 DIS Emergency DARION BRIGGS MD [facility] ER POSS UTI,ABD PAIN [id number] 08/23/2014 15:42:00 08/23/2014 17:41:00 DIS Emergency LEO MOSER APRN [facility] ER FEVER ABD PAIN [id number] 07/07/2014 18:58:00 07/07/2014 23:59:59 CLS Outpatient YAMIL WELDON [facility] QUICK UA CULTURE [id number] 03/23/2014 20:51:00 03/23/2014 21:04:00 DIS Emergency LEO MOSER TOOL STRAIGHTENER [facility] ER EAR PAIN [id number] 09/01/2013 20:30:00 09/01/2013 21:01:00 DIS Emergency LEO MOSER TOOL STRAIGHTENER [facility] ER MULTIPLE COMPLAINTS [id number] 07/09/2013 17:22:00 07/09/2013 20:11:00 DIS Emergency BELINDA GRAJEDA [facility] ER FALL WITH HEAD INJ [id number] 03/14/2013 15:39:00 03/14/2013 23:59:59 CLS Outpatient MCCHRKATINA SYLVESTER R [employer] 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 [facility] QUICK UTI [id number] 03/11/2013 13:22:00 03/11/2013 23:59:59 CLS Outpatient MAJOR, KENNEDY 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 [facility] QUICK EAR PAIN SINUS [id number] 12/15/2017 19:20:00 ACT Emergency BELINDA GRAJEDA [facility] ER ABDOMEN PAIN [id number] 09/26/2017 07:20:00 Document Registration [id number] 09/26/2017 07:20:00 Document Registration [id number] 09/26/2017 07:20:00 Document Registration [id number] 06/23/2015 13:15:00 Document Registration [id number] 07/17/2012 12:53:00 Document Registration [id number] 04/27/2012 21:37:00 Document Registration [id number] 06/05/2011 18:36:00 Document Registration [id number] 03/18/2011 14:53:00 Document Registration [id number] 02/24/2011 16:50:00 Document Registration [id number] 12/24/2010 15:31:00 Document Registration [id number] 10/27/2010 09:46:00 Document Registration [id number] 07/24/2016 05:05:00 Document Registration [id number] 03/02/2017 03:07:00 Document Registration [id number] 11/20/2017 09:40:00 11/20/2017 23:59:59 CLS Outpatient ANDRESL JENNIFER IVETH L [facility] [id number] 10/10/2017 18:55:00 Document Registration [id number] 10/02/2017 10:00:00 Document Registration [id number] 08/28/2017 16:00:00 Document Registration [id number] 06/28/2017 14:10:00 Document Registration [id number] 10/14/2016 16:13:00 10/14/2016 23:59:00 DIS Outpatient Abner Middleton [id number] 10/14/2016 15:58:00 10/14/2016 23:59:00 DIS Outpatient Abner Middleton
[2017-12-15 19:36] LABS: BILIRUBIN,URINE NEGATIVE (NEGATIVE); CLARITY,URINE SLIGHTLY CLOUDY; COLOR,URINE YELLOW; GLUCOSE, URINE (UA) NEGATIVE (NEGATIVE); KETONES,URINE NEGATIVE (NEGATIVE); LEUKOCYTE ESTERASE ,URINE NEGATIVE (NEGATIVE); NITRITE,URINE NEGATIVE (NEGATIVE); PH,URINE 7 (5-9); PROTEIN,URINE NEGATIVE (NEGATIVE); UROBILINOGEN,URINE NORMAL (NORMAL)
[2017-12-15 19:46] LABS: BACTERIA,URINE TRACE /HPF; RBC,URINE RARE /HPF; WBC,URINE 0-2 /HPF
[2017-12-15 19:47] LABS: AMORPHOUS SEDIMENT,UR FEW AMOR URATES /LPF
--- NOTE | 2017-12-15 19:53 | ED GU-Female ---
General Chief Complaint: Abdominal/GI Problems Stated Complaint: ABDOMEN PAIN Nursing Triage Note: pt c/o suprapubic abd cramping, urinary frequency, dsuria, and nausea x 1 week. she also c/o white vaginal discharge and itching. Nursing Sepsis Screen: No Definite Risk Source: patient Exam Limitations: no limitations History of Present Illness Date Seen by Provider: Dec 15, 2017 Time Seen by Provider: 19:53 Initial Comments 22-year-old female patient presents to the emergency department with complaints of lower abdominal pain, urinary frequency, dysuria, and nausea for one week. Also complains of a white vaginal discharge and itching. Timing/Duration: week, getting worse Severity/Quality: aching, burning Location: suprapubic, vaginal, urethral Activities at Onset: none Prior Genitourinary Problems: similar symptoms Sexual [place] History: greater than 2 months ago Modifying Factors: Worsens With Palpation Allergies and Home Medications Allergies Coded Allergies: Penicillins (Unverified Allergy, Unknown, 05/12/15) Uncoded Allergies: SULFA (Adverse Reaction, Unknown, N/V, 05/16/17) Home Medications Cefuroxime Axetil 250 Mg Tablet, 250 MG PO BID Prescribed by: LEO MOSER on 07/26/171951 Cetirizine HCl 10 Mg Capsule, 10 MG PO DAILY, (Reported) D-Methorphan Hb/P-Epd HCl/Bpm 118 Ml Syrup, 5 ML PO Q6H PRN for CONGESTION Prescribed by: LEO MOSER on 07/26/171951 Metronidazole 500 Mg Tablet, 500 MG PO BID Prescribed by: BELINDA CUELLAR on 12/15/172133 Montelukast Sodium 10 Mg Tablet, 10 MG PO DAILY, (Reported) Phenazopyridine HCl 100 Mg Tablet, 100 MG PO Q6H PRN for PAIN-MILD TO MODERATE Prescribed by: BELINDA CUELLAR on 12/15/172133 Patient Home Medication List Home Medication List Reviewed: Yes Review of Systems Constitutional: chills, fever (99.0 fever at home), No malaise EENTM: no symptoms reported Respiratory: no symptoms reported Cardiovascular: no symptoms reported Gastrointestinal: see HPI, abdominal pain (suprapubic abdominal pain), No constipation, No diarrhea, nausea, No vomiting Genitourinary: see HPI : No Musculoskeletal: no symptoms reported Skin: no symptoms reported Psychiatric/Neurological: No Symptoms Reported All Other Systemes Reviewed Negative Unless Noted: Yes (Negative excepted noted.) Past Ddlyjqq-Bvclox-Twtmvo Hx Patient Social History Alcohol Use: Denies Use Recreational Drug Use: No Smoking Status: Former Smoker Type Used: Cigarettes 2nd Hand Smoke Exposure: No Recent Foreign Travel: No Contact w/Someone Who Travel: No Recent Infectious Disease Expo: No Recent Hopitalizations: No Immunizations Up To Date Tetanus Booster (TDap): Less than 5yrs Seasonal Allergies Seasonal Allergies: Yes Past Medical History Surgeries: Yes (TUBES IN EARS ) Respiratory: Yes Asthma Cardiac: No Neurological: No Reproductive Disorders: No Sexually Transmitted Disease: No Gastrointestinal: No Musculoskeletal: No Fractures Endocrine: No Cancer: No Psychosocial: No Integumentary: No Blood Disorders: No Family Medical History Reviewed Nursing Family Hx No Pertinent Family Hx Physical Exam Vital Signs Vital Signs - First Documented 12/15/17 19:40 Temp 97.1 Pulse 68 Resp 16 B/P (MAP) 100/68 (79) Pulse Ox 100 Capillary Refill : Less Than 3 Seconds General Appearance: WD/WN, no apparent distress Cardiovascular: normal peripheral pulses, regular rate, rhythm, no edema, no murmur Respiratory: lungs clear, normal breath sounds, no respiratory distress, no accessory muscle use Gastrointestinal: normal bowel sounds, soft, no organomegaly, No distended, guarding (right-sided and suprapubic guarding), No rebound, tenderness ( generalized right sided and suprapubic tenderness) Pelvic: normal external exam, No other (unable to accomidate the speculum.) Back: normal inspection, no CVA tenderness Extremities: no pedal edema, normal capillary refill Neurologic/Psychiatric: alert, normal mood/affect, oriented x 3 Skin: normal color, warm/dry Progress/Results/Core Measures Suspected Sepsis Recent Fever Within 48 Hours: No Infection Criteria Present: None New/Unexplained Altered Menta: No Sepsis Screen: No Definite Risk Sepsis Diagnosis: SIRS Temperature:97.1 Pulse: 68 Respiratory Rate: 16 Laboratory Tests 12/15/17 21:10: White Blood Count 5.1 Blood Pressure 100 /68 Mean: 79 Laboratory Tests 12/15/17 21:10: Creatinine 0.67, Platelet Count 225, Total Bilirubin 0.5 Results/Orders Lab Results Laboratory Tests Test 12/15/17 19:28 12/15/17 21:10 12/15/17 21:15 Range/Units Urine Color YELLOW Urine Clarity SLIGHTLY CLOUDY Urine pH 7 5-9 Urine Specific [place] 1.010 L 1.016-1.022 Urine Protein NEGATIVE NEGATIVE Urine Glucose (UA) NEGATIVE NEGATIVE Urine Ketones NEGATIVE NEGATIVE Urine Nitrite NEGATIVE NEGATIVE Urine Bilirubin NEGATIVE NEGATIVE Urine Urobilinogen NORMAL NORMAL MG/DL Urine Leukocyte Esterase NEGATIVE NEGATIVE Urine RBC (Auto) NEGATIVE NEGATIVE Urine RBC RARE /HPF Urine WBC 0-2 /HPF Urine Squamous Epithelial Cells 2-5 /HPF Urine Renal Epithelial Cells NONE /HPF Urine Crystals PRESENT H /LPF Urine Amorphous Sediment FEW [place] URATES H /LPF Urine Bacteria TRACE /HPF Urine Casts NONE /LPF Urine Mucus NEGATIVE /LPF Urine Culture Indicated NO White Blood Count 5.1 4.3-11.0 10^3/uL Red Blood Count 4.14 L 4.35-5.85 10^6/uL Hemoglobin 12.8 11.5-16.0 G/DL Hematocrit 36 35-52 % Mean Corpuscular Volume 88 80-99 FL Mean Corpuscular Hemoglobin 31 25-34 PG Mean Corpuscular Hemoglobin Concent 35 32-36 G/DL Red Cell Distribution Width 12.4 10.0-14.5 % Platelet Count 225 130-400 10^3/uL Mean Platelet Volume 9.3 7.4-10.4 FL Neutrophils (%) (Auto) 43 42-75 % Lymphocytes (%) (Auto) 43 12-44 % Monocytes (%) (Auto) 12 0-12 % Eosinophils (%) (Auto) 2 0-10 % Basophils (%) (Auto) 1 0-10 % Neutrophils # (Auto) 2.2 1.8-7.8 X 10^3 Lymphocytes # (Auto) 2.2 1.0-4.0 X 10^3 Monocytes # (Auto) 0.6 0.0-1.0 X 10^3 Eosinophils # (Auto) 0.1 0.0-0.3 10^3/uL Basophils # (Auto) 0.0 0.0-0.1 10^3/uL Sodium Level 135 135-145 MMOL/L Potassium Level 3.4 L 3.6-5.0 MMOL/L Chloride Level 104 98-107 MMOL/L Carbon Dioxide Level 23 21-32 MMOL/L Anion Gap 8 5-14 MMOL/L Blood Urea Nitrogen 8 7-18 MG/DL Creatinine 0.67 0.60-1.30 MG/DL Estimat Glomerular Filtration Rate > 60 BUN/Creatinine Ratio 12 Glucose Level 84 70-105 MG/DL Calcium Level 8.5 8.5-10.1 MG/DL Total Bilirubin 0.5 0.1-1.0 MG/DL Aspartate Amino Transf (AST/SGOT) 18 5-34 U/L Alanine Aminotransferase (ALT/SGPT) 18 0-55 U/L Alkaline Phosphatase 59 40-136 U/L C-Reactive Protein High Sensitivity 0.01 0.00-0.50 MG/DL Total Protein 6.5 6.4-8.2 GM/DL Albumin 4.3 3.2-4.5 GM/DL Lipase 39 8-78 U/L Micro Results Microbiology 12/15/17 Genital Culture - Preliminary, Resulted 12/15/17 Wet Prep - Final, Resulted My Orders Orders - BELINDA CUELLAR Ua Culture If Indicated (12/15/17 19:26) Urine Bedside (12/15/17 19:27) Wet Prep (12/15/17 19:58) Neisseria Gonorrhea Dna (12/15/17 19:58) Chlamydia Dna (12/15/17 19:58) Genital Culture (12/15/17 19:58) Ct Abdomen/Pelvis W (12/15/17 20:21) Saline Lock/Iv-Start (12/15/17 20:21) Cbc With Automated Diff (12/15/17 20:21) Comprehensive Metabolic Panel (12/15/17 20:21) Hs C Reactive Protein (12/15/17 20:21) Lipase (12/15/17 20:21) Ketorolac Injection (Toradol Injection) (12/15/17 20:21) Iohexol Injection (Omnipaque 350 Mg/Ml 1 (12/15/17 20:30) Ns (Ivpb) (Sodium Chloride 0.9% Ivpb Bag (12/15/17 20:30) Metronidazole Tablet (Flagyl Tablet) (12/15/17 21:45) Medications Given in ED Vital Signs/I&O Capillary Refill : Less Than 3 Seconds Blood Pressure Mean: 79 Point of Care Testing Urine -Bedside: Negative Diagnostic Imaging Diagonstic Imaging: CT Plain Films/CT/US/NM/MRI: abdomen, pelvis Comments FINDINGS: Lower chest: The lung bases are clear. No pericardial or pleural effusion. Peritoneum: No free intraperitoneal air or fluid. Liver and biliary system: The liver is normal. The gallbladder is normal. No biliary duct dilation. Spleen and Pancreas: Spleen is normal. The pancreas enhances normally without mass lesion or peripancreatic inflammatory changes. Adrenals: Normal. tract: The kidneys enhance normally without suspicious mass or obstruction. Urinary bladder is distended without wall thickening. Uterus and ovaries are physiologic in appearance for patient's age. GI tract: Stomach is partially distended with fluid and there is no wall thickening. No bowel obstruction. No pericolonic inflammatory changes. Normal appendix. Vasculature and Lymph nodes: Normal caliber aorta. No abdominal or pelvic lymphadenopathy. Musculoskeletal: No concerning osseous lesion. IMPRESSION: 1. No acute inflammatory or obstructive process in the abdomen or pelvis. Normal appendix. 2. Physiologic appearance of the ovaries. Dictated by: Dictated on workstation # [id number] Reviewed: Reviewed by Me (radiology report reviewed by me) Departure Communication (Admissions) All laboratory findings and diagnostic study findings discussed with the patient. Patient reports pain is much better with medications. Plan for discharge to home for treatment of bacterial vaginosis. Patient to return to the emergency department for worsened symptoms or any other concerns. Impression Primary Impression: BV (bacterial vaginosis) Disposition: HOME, SELF-CARE Condition: Improved Departure-Patient Inst. Decision time for Depature: 21:27 Referrals: [facility] (PCP) Primary Care Physician IVETH BENDER (Family) Primary Care Physician Patient Instructions: Bacterial Vaginosis (DC) Add. Discharge Instructions: All discharge instructions reviewed with patient and/or family. Voiced understanding. Medications as instructed. Tylenol extra strength over-the- counter as directed for pain. Ibuprofen 600 mg by mouth every 6-8 hours as needed for pain. Follow-up with your primary care provider for recheck as an outpatient. Return to the emergency department for worsened symptoms or any other concerns. Scripts Phenazopyridine HCl (Pyridium) 100 Mg Tablet 100 MG PO Q6H Y for PAIN-MILD TO MODERATE, #14 TAB 0 Refills Prov: BELINDA CUELLAR 12/15/17 Metronidazole (Metronidazole) 500 Mg Tablet 500 MG PO BID, #14 TAB 0 Refills Prov: BELINDA CUELLAR 12/15/17 BELINDA CUELLAR Dec 15, 2017 19:53
[2017-12-15] MEDS ORDERED: KETOROLAC 30 MG/ML VIAL IVP STA (20:21)
[2017-12-15] MEDS ORDERED: NS 100 ML (IVPB) BAG IV ONE (20:30)
[2017-12-15] MEDS ORDERED: IOHEXOL 350 MG/ML 100 ML (OMNIPAQUE 350) VIAL IV ONE (20:30)
--- NOTE | 2017-12-15 21:06 | Diagnostic Imaging Report ---
PROCEDURE: CT abdomen and pelvis with contrast. TECHNIQUE: Multiple contiguous axial images were obtained through the abdomen and pelvis after administration of intravenous contrast. INDICATION: Right lower quadrant pain. COMPARISON: 10/14/2016. FINDINGS: Lower chest: The lung bases are clear. No pericardial or pleural effusion. Peritoneum: No free intraperitoneal air or fluid. Liver and biliary system: The liver is normal. The gallbladder is normal. No biliary duct dilation. Spleen and Pancreas: Spleen is normal. The pancreas enhances normally without mass lesion or peripancreatic inflammatory changes. Adrenals: Normal. tract: The kidneys enhance normally without suspicious mass or obstruction. Urinary bladder is distended without wall thickening. Uterus and ovaries are physiologic in appearance for patient's age. GI tract: Stomach is partially distended with fluid and there is no wall thickening. No bowel obstruction. No pericolonic inflammatory changes. Normal appendix. Vasculature and Lymph nodes: Normal caliber aorta. No abdominal or pelvic lymphadenopathy. Musculoskeletal: No concerning osseous lesion. IMPRESSION: 1. No acute inflammatory or obstructive process in the abdomen or pelvis. Normal appendix. 2. Physiologic appearance of the ovaries. Dictated by: Dictated on workstation # [id number]
[2017-12-15 21:15] LABS: BASOPHILS % (AUTO) 1 % (0-10); EOSINOPHILS # (AUTO) 0.1 10^3/uL (0.0-0.3); EOSINOPHILS % (AUTO) 2 % (0-10); HEMATOCRIT 36 % (35-52); HEMOGLOBIN 12.8 G/DL (11.5-16.0); LYMPHOCYTES # (AUTO) 2.2 X 10^3 (1.0-4.0); LYMPHOCYTES % (AUTO) 43 % (12-44); MEAN CORPUSCULAR HEMOGLOBIN 31 PG (25-34); MEAN CORPUSCULAR HGB CONC 35 G/DL (32-36); MEAN CORPUSCULAR VOLUME 88 FL (80-99); MEAN PLATELET VOLUME 9.3 FL (7.4-10.4); MONOCYTES # (AUTO) 0.6 X 10^3 (0.0-1.0); MONOCYTES % (AUTO) 12 % (0-12); NEUTROPHILS # (AUTO) 2.2 X 10^3 (1.8-7.8); NEUTROPHILS % (AUTO) 43 % (42-75); PLATELET COUNT 225 10^3/uL (130-400); RED BLOOD COUNT 4.14 10^6/uL (4.35-5.85); RED CELL DISTRIBUTION WIDTH 12.4 % (10.0-14.5); WHITE BLOOD COUNT 5.1 10^3/uL (4.3-11.0)
[2017-12-15] MEDS ORDERED: PHEN-639 PO (21:34)
[2017-12-15] MEDS ORDERED: METR500T21 PO (21:34)
[2017-12-15 21:36] LABS: ALANINE AMINOTRANSFERASE 18 U/L (0-55); ALBUMIN 4.3 GM/DL (3.2-4.5); ALKALINE PHOSPHATASE 59 U/L (40-136); BILIRUBIN,TOTAL 0.5 MG/DL (0.1-1.0); BUN/CREATININE RATIO 12; CALCIUM 8.5 MG/DL (8.5-10.1); CARBON DIOXIDE 23 MMOL/L (21-32); CHLORIDE 104 MMOL/L (98-107); CREATININE SERUM 0.67 MG/DL (0.60-1.30); GFR ESTIMATED > 60; GLUCOSE 84 MG/DL (70-105); LIPASE 39 U/L (8-78); POTASSIUM 3.4 MMOL/L (3.6-5.0); SODIUM 135 MMOL/L (135-145); TOTAL PROTEIN 6.5 GM/DL (6.4-8.2)
[2017-12-15] MEDS ORDERED: metroNIDAZOLE 500 MG (FLAGYL) TAB PO ONE (21:45)
[2017-12-15 21:49] VITALS: BP 100/68
== END 2017-12-15 21:49 | disposition home or self-care (01) ==
LOC: EDUNIT# 19:18 → ER 19:20
DX: N76.0 Acute vaginitis (principal); J45.909 Unspecified asthma, uncomplicated; Z87.891 Personal history of nicotine dependence; Z96.22 Myringotomy tube(s) status; Z88.0 Allergy status to penicillin; Z88.2 Allergy status to sulfonamides
CPT/HCPCS: 36415; 74177; 80053; 81000; 83690; 84703; 85025; 86141; 87070; 87210; 87491; 87591; 96374

== ENCOUNTER 2018-06-09 21:08 | Emergency (ER) | payer SELFPAY ==
[~2018-06-09] VITALS: Ht 149.9 cm; Wt 36.3 kg
--- OUTSIDE RECORDS SUMMARY | 2018-06-09 21:14 | XMS REPORT ---
Author Author CARLYLE FOWLER [facility] Address [address] [place] [address] Care Team Providers Care Lean Consultant Name Role Phone CARLYLE FOWLER Unavailable PROBLEMS Type Condition ICD9-CM Code AJP13-AN Code Onset Dates Condition Status SNOMED Code Problem Seasonal allergic rhinitis, unspecified allergic rhinitis trigger J30.2 Active 429051622 Problem Ovarian cyst N83.20 Active 01617822 Problem Gastroesophageal reflux disease, esophagitis presence not specified K21.9 Active 207204676 Problem Chronic maxillary sinusitis J32.0 Active 89992367 Problem GERD (gastroesophageal reflux disease) K21.9 Active 639044647 Problem Mild intermittent asthma without complication J45.20 Active 708236929 Problem Exacerbation of asthma, unspecified asthma severity, unspecified whether persistent J45.901 Active 082008550 Problem Slow transit constipation K59.01 Active 37557544 ALLERGIES Substance Reaction Event Type Date Status SulfADIAZINE Unknown Drug Allergy May, Active Penicillin V Potassium Unknown Drug Allergy May, Active ENCOUNTERS Encounter Location Date Diagnosis [facility] [id number] [address] May, Dysuria R30.0 and Cyst of right ovary N83.201 [facility] [id number] [place] [address]33- 2846 Apr, [facility] [address] [place] [id number] [place] [address] 69714- 2236 Apr, [facility] [address] [place] [id number] [place] [address] 92356- 3815 Mar, [facility] [address] [place] [id number] [place] [address] 81426- 7260 Mar, [facility] [address] [address] Mar, Sore throat J02.9 ; Dysuria R30.0 ; Vaginal discharge N89.8 ; Screening for HPV (human papillomavirus) Z11.51 ; Gastroesophageal reflux disease, esophagitis presence not specified K21.9 and Chronic constipation K59.09 [place] [address] [address] Feb, [place] [address] 935185- 5[address] January, Dysuria R30.0 and Pyelonephritis N[address] 544541- 9153 January, [place] [address] [address]27 January, Acute recurrent maxillary sinusitis J01.01 [place] [address] [address]- [address]48 Dec, [place] [address] [address]- 8418 Dec, Lower abdominal pain R10.30 ; Polyuria R35.8 and Earache symptoms in both ears H92.03 [facility] [address] [address] Dec, Gastroenteritis K52.9 [facility] [address] [address] Dec, Dysuria R30.0 ; Yeast infection of the vagina B37.3 and Shaking R25.[address] [address]- [address] Nov, Exacerbation of asthma, unspecified asthma severity, unspecified whether persistent J45.901 [facility] [address] [address] Nov, Acute frontal sinusitis, recurrence not specified J01.10 ; Post-nasal drainage R09.82 and Chronic asthma without complication, unspecified asthma severity, unspecified whether persistent J45.909 [facility] [place] [id number] [address] Sep, Acute cystitis with hematuria N30.01 and Dysuria R30.0 [facility] [address] [id number] Sep, [place] [address] [address] Sep, Dysuria R30.0 [place] [address] [id number] Sep, Dental examination Z01.[address] [address] 08 Sep, 2017 Encounter for dental examination and cleaning with abnormal findings Z01.21 [facility] [address] [address] 08 Sep, 2017 Tooth pain K08.[address] [address]- [address] 03 Sep, 2017 Nevoid hyperpigmentation L81.[address] [address] Aug, Nevoid hyperpigmentation L81.[address] 28633- 1768 Aug, Sore throat J02.9 ; Bronchitis J40 and Irritated nevus D22.[address] 80638- 1183 Aug, Dysuria R30.0 ; Acute cystitis with hematuria N30.01 ; Vaginal yeast infection B37.3 and Slow transit constipation K59.01 [facility] [address] [address]89[address] Jul, [facility] [id number] [place] [address] [id number] Jun, Dental examination Z01.20 [facility] [address] [place] [id number] [place] [address]278 [address] Jun, Fluid level behind tympanic membrane of both ears H65.93 [facility] [address] 8864[address] Jun, Potential exposure to STD Z20.2 ; Dysuria R30.0 ; Vaginal discharge N89.8 and Candidiasis of female genitalia B37.3 [facility] [address] [id number] Jun, Dental examination Z01.20 [facility] [address] [place] [id number] [place] [id number] May, Dental examination Z01.20 [facility] [address] [id number] May, Dental examination Z01.20 [facility] [address] [id number] May, Dental examination Z01.20 [facility] [address] [place] [id number] [place] [address] [id number] 8233 Apr, Dysfunction of both eustachian tubes H69.83 [facility] [address] [place] [id number] [place] [address]3749 Apr, GERD (gastroesophageal reflux disease) K21.9 and Sore throat J02.9 [facility] [address] [id number] [place] [address] [id number] Apr, Dental examination Z01.20 [facility] [address] [place] [id number] [place] [address] 98426- 8942 Apr, Asthma exacerbation J45.901 [facility] [address] [id number] [place] [address] [id number] Mar, Dental examination Z01.20 [facility] [address] [address] 27 Feb, 2017 Dental examination Z01.20 [facility] [address] [address] Feb, Middle ear effusion, bilateral H65.93 [place] [address] 36418- 9263 Feb, Dysuria R30.0 and Diverticulitis of large intestine without perforation or abscess with bleeding K57.33 [place] [address] 6[address]87- 4408 January, Asthma with acute exacerbation in adult J45.901 [place] [address] [id number] [place] [address] 88349- 9626 January, Dysuria R30.0 ; Vaginal discharge N89.8 and Acute non- recurrent maxillary sinusitis J01.00 [place] [address] 53758- 4272 Dec, [place] [address] 09778- 3766 Dec, Sore throat J02.9 ; Acute mucoid otitis media of left ear H65.112 and Acute non-recurrent maxillary sinusitis J01.00 [place] [address] [place] [id number] [place] [address] 20571- 4607 Dec, Bronchitis J40 [facility] [address] [place] [id number] [place] [address] 38812 -4610 Dec, Shortness of breath R06.02 and Mild intermittent asthma without complication J45.20 [place] [address] 43018- 5792 Nov, Asthma exacerbation J45.901 and Bronchitis J40 [place] [address] [id number] [place] [address] 92721- 3740 Oct, Acute mucoid otitis media of both ears H65.113 and Acute non -recurrent maxillary sinusitis J01.00 [facility] [address] [id number] 03 Oct, 2016 Dental examination Z01.20 [place] [address] 05924- 7548 10 Sep, 2016 Exposure to influenza Z20.828 and Upper respiratory tract infection, unspecified type J06.9 [facility] [place] [address] 64218 [address]2663 27 Aug, 2016 Acute exacerbation of asthma with allergic rhinitis J45.901 [facility] [address] 62757 [address]0638 15 Aug, 2016 Burning with urination R30.0 and Hematuria R31.[address] 63337- 6429 08 Aug, 2016 Seasonal allergic rhinitis, unspecified allergic rhinitis trigger J30.2 and Dermatitis L30.9 [place] [address] 22310- 5298 17 Jul, 2016 Follow up Z09 [place] [address] 41667- 3365 15 Jul, 2016 [place] [address] 85327- 5339 10 Jul, 2016 Dysuria R30.0 ; Acute vaginitis N76.0 and PID (acute pelvic inflammatory disease) N73.0 [place] [address] 61560- 9561 02 Jul, 2016 Sore throat J02.9 [facility] [address] 05026 [address]3520 16 Jun, 2016 Acute otitis externa of both ears, unspecified type H60.503 [facility] [place] [address] 43531 [address]86 29 May, 2016 Sore throat J02.9 and Pharyngitis, unspecified etiology J02.9 [facility] [place] [address] 64485 [address]2664 Apr, Dysuria R30.0 [facility] [place] [address] 47741 -6775 18 Mar, 2016 Viral infection B34.9 [facility] [address] 60[address]0904 07 Mar, 2016 Dermatitis L30.9 [place] [address] 85792- 6371 27 Feb, 2016 Annual physical exam Z00.00 and Screen for STD (sexually transmitted disease) Z11.3 [facility] [address] 9[address]4970 13 Feb, 2016 Pain with urination R30.[address] 44593- 0148 03 Feb, 2016 Other seasonal allergic rhinitis J30.[address] 32862- 3581 Nov, Cough R05 and Viral syndrome B34.[address] 97958- 6280 22 Nov, 2015 Oral contraceptive pill surveillance Z30.41 and Left ovarian cyst N83.[address] 74508- 9952 16 Nov, 2015 Ovarian cyst N83.20 and Otitis media of both ears H66.[address] 48120- 0838 07 Nov, 2015 Sore throat J02.9 and Streptococcal pharyngitis J02.[address] 45483- 5472 17 Oct, 2015 Ovarian cyst N83.20 ; Hematuria R31.9 ; Urinary crystals R82.99 ; Left sided abdominal pain R10.9 and Allergic rhinitis J30.9 [place] [address] [place] [id number] [place] [address] 19884- 5212 14 Oct, 2015 [place] [address] [address]87- 2006 11 Oct, 2015 Left lower quadrant pain R10.32 ; Dysuria R30.0 ; History of constipation Z87.19 ; Routine screening for STI (sexually transmitted infection) Z11.3 ; CVA tenderness M54.9 ; Lower abdominal tenderness R10.819 ; Vaginal itching L29.8 and Family history of endometriosis Z84.2 [place] [address] 65338- 0774 01 Oct, 2015 Asthma attack 493.92 ; UTI symptoms R39.9 and Sinusitis 473.9 [facility] [address] [id number] Aug, Dental examination Z01.20 [place] [address] 33437- 9794 Jul, Scabies B86 [place] [address] 32719- 0019 Jun, Otitis externa of both ears H60.[address] 69103- 7913 May, Asthma attack 493.92 [place] [address] 22885- 7756 Apr, Otitis externa of both ears 380.10 [place] [address] 39047- 5076 Apr, Insect bite 919.4 [place] [address] 35008- 6116 Apr, Infective otitis externa 380.10 [place] [address] 21296- 2213 Mar, Acute sinusitis 461.9 [facility] [address] [address] Mar, Acute pharyngitis 462 [facility] [address] [address] Feb, Otitis media of both ears 382.9 [facility] [address] [place] [address] 58666- 9446 Feb, Dysuria 788.1 and Urinary tract infection 599.0 [facility] [address] [address] Feb, Dysuria 788.1 [facility] [address] [place] [id number] [address] January, Sinusitis 473.9 [facility] [address] [place] [address] 61449- 0974 Dec, [facility] [address] [address] Dec, [facility] [address] [address] Nov, [facility] [address] [address] Nov, [facility] [address] [address] 2[address] Oct, [facility] [address] [address] 8[address] Oct, [facility] [address] [address] Oct, [facility] [address] [address]- 7976 Oct, [facility] [address] [address] 9312 Oct, [facility] [address] [facility] [id number] [address] Oct, [facility] [address] [facility] [id number] [address] Aug, [facility] [address] [facility] [id number] [address] Aug, [facility] [address] [facility] [id number] [address] Aug, [facility] [address] [facility] [id number] [address] Aug, IMMUNIZATIONS No Known Immunizations SOCIAL HISTORY Never Assessed REASON FOR VISIT Urinary frequency and burning JSMyles PLAN OF CARE Activity Details Follow Up keep scheduled appointment Reason: VITAL SIGNS Height 59 in 2018-05-15 Weight 84.8 lbs 2018-05-15 Temperature 98.6 degrees Fahrenheit 2018-05-15 Heart Rate 64 bpm 2018-05-15 Respiratory Rate 18 2018-05-15 BMI 17.13 kg/m2 2018-05-15 Blood pressure systolic 120 mmHg 2018-05-15 Blood pressure diastolic 80 mmHg 2018-05-15 MEDICATIONS Medication Instructions Dosage Frequency Start Date End Date Duration Status Zyrtec Allergy 10 mg oral daily 1 tablet 24h Active ProAir HFA 108 (90 Base) mcg/act Inhalation every 4 hrs 2 puffs as needed 4h Aug, Active Flonase 50 mcg/act intranasally daily 1 spary each nostril 24h Aug, Active Ranitidine HCl 150 MG Orally twice a day 1 tablet at bedtime 12h Mar, 90 days Active Symbicort 160-4.5 MCG/ACT Inhalation Twice a day 2 puffs 12h Nov, Active Montelukast Sodium 10 MG TAKE ONE TABLET BY MOUTH IN THE EVENING 30 Active Fluconazole 150 MG Orally Take one dose now and repeat dose in 72 hours 1 tablet Mar, Active Polyethylene Glycol 3350 17 gm/dose Orally Once a day 17gram 24h Mar, Active RESULTS Name Result Date Reference Range UA LONG DIP (IN HOUSE) 2018-05-15 Lot # [id number] Exp date 2019-01-07 Clarity clear Color yellow Odor none GLU negative ESTELA negative KET negative SG >=1.030 BLO 2+ pH 6.0 Protein negative URO 0.2 NIT negative AMANDA negative Lot # [id number] Exp date Aug 2018 PROCEDURES Procedure Date Ordered Result Body Site URINALYSIS, AUTO, W/O SCOPE May 15, 2018 INSTRUCTIONS MEDICATIONS ADMINISTERED No Known Medications MEDICAL (GENERAL) HISTORY Type Description Date Medical History asthma Medical History Seasonal allergies Surgical History myringotomy with ventilating tube x 2 Surgical History [place] teeth removal 09/01/2015
--- OUTSIDE RECORDS SUMMARY | 2018-06-09 21:15 | XMS REPORT ---
Author Author MARILEE MEJIA [facility] Address [address] [place] [address] Care Team Providers Care Alignment Mechanic Name Role Phone MARILEE MEJIA Unavailable PROBLEMS Type Condition ICD9-CM Code ZBO01-YR Code Onset Dates Condition Status SNOMED Code Problem Seasonal allergic rhinitis, unspecified allergic rhinitis trigger J30.2 Active 828093308 Problem Ovarian cyst N83.20 Active 99408817 Problem Gastroesophageal reflux disease, esophagitis presence not specified K21.9 Active 452299806 Problem Chronic maxillary sinusitis J32.0 Active 75209629 Problem GERD (gastroesophageal reflux disease) K21.9 Active 957461427 Problem Mild intermittent asthma without complication J45.20 Active 221958922 Problem Exacerbation of asthma, unspecified asthma severity, unspecified whether persistent J45.901 Active 392168682 Problem Slow transit constipation K59.01 Active 14752257 ALLERGIES No Information ENCOUNTERS Encounter Location Date Diagnosis [facility] [id number] [place] [address] May, Dysuria R30.0 and Cyst of right ovary N83.201 [facility] [place] [id number] [place] [address] 73396- 7055 Apr, [facility] [place] [address] [address]60 Apr, [facility] [place] [id number] [place] [address] 85355- 4438 Mar, [facility] [place] [address] [address]70 Mar, [facility] [place] [id number] [place] [address] 13429- 3208 Mar, Sore throat J02.9 ; Dysuria R30.0 ; Vaginal discharge N89.8 ; Screening for HPV (human papillomavirus) Z11.51 ; Gastroesophageal reflux disease, esophagitis presence not specified K21.9 and Chronic constipation K59.09 [place] [address] [place] [id number] Feb, [place] [address] [address] January, Dysuria R30.0 and Pyelonephritis N12 [place] [address] [address]- 4988 January, [address] 999291- 3256 January, Acute recurrent maxillary sinusitis J01.01 [place] [address] [address]- 1567 Dec, [address] [address]257- 2479 Dec, Lower abdominal pain R10.30 ; Polyuria R35.8 and Earache symptoms in both ears H92.03 [facility] [address] [address] Dec, Gastroenteritis K52.9 [facility] [address] [address] Dec, Dysuria R30.0 ; Yeast infection of the vagina B37.3 and Shaking R25.[address] [address]- [address] Nov, Exacerbation of asthma, unspecified asthma severity, unspecified whether persistent J45.901 [facility] [address] [place] [address]297 Nov, Acute frontal sinusitis, recurrence not specified J01.10 ; Post-nasal drainage R09.82 and Chronic asthma without complication, unspecified asthma severity, unspecified whether persistent J45.909 [facility] [place] [facility] [address] [place] [address]19 [address]27 Sep, Acute cystitis with hematuria N30.01 and Dysuria R30.0 [facility] [address] [id number] Sep, [address] [address]- [address]89 Sep, Dysuria R30.0 [facility] [address] [id number] Sep, Dental examination Z01.[address] 17192- 8125 08 Sep, 2017 Encounter for dental examination and cleaning with abnormal findings Z01.21 [facility] [address] [address] Sep, Tooth pain K08.[address] 9[address]16- 4237 Sep, Nevoid hyperpigmentation L81.[address] 86624- 8842 Aug, Nevoid hyperpigmentation L81.[address] 85044- 2939 Aug, Sore throat J02.9 ; Bronchitis J40 and Irritated nevus D22.[address] 23518- 7746 Aug, Dysuria R30.0 ; Acute cystitis with hematuria N30.01 ; Vaginal yeast infection B37.3 and Slow transit constipation K59.01 [facility] [address] [place] [address]33 Jul, [facility] [address] [id number] Jun, Dental examination Z01.20 [facility] [id number] [place] [address]81 [address] Jun, Fluid level behind tympanic membrane of both ears H65.93 [facility] [id number] [place] [address]29 [address] Jun, Potential exposure to STD Z20.2 ; Dysuria R30.0 ; Vaginal discharge N89.8 and Candidiasis of female genitalia B37.3 [facility] [address] [id number] Jun, Dental examination Z01.20 [facility] [address] [id number] May, Dental examination Z01.20 [facility] [address] [id number] May, Dental examination Z01.20 [facility] [address] [id number] May, Dental examination Z01.20 [facility] [place] [id number] [place] [address] 69226- 7295 Apr, Dysfunction of both eustachian tubes H69.83 [facility] [id number] [place] [address]1572 -1306 Apr, GERD (gastroesophageal reflux disease) K21.9 and Sore throat J02.9 [facility] [id number] [place] [address] [id number] Apr, Dental examination Z01.20 [facility] [place] [id number] [place] [address] 10787- 7673 Apr, Asthma exacerbation J45.901 [facility] [address] [id number] Mar, Dental examination Z01.20 [facility] [id number] [place] [address] [id number] 27 Brina, 2017 Dental examination Z01.20 [facility] [id number] [place] [address] 91747 -8313 24 Feb, 2017 Middle ear effusion, bilateral H65.93 [place] [id number] [place] [address] 56892- 5436 Feb, Dysuria R30.0 and Diverticulitis of large intestine without perforation or abscess with bleeding K57.33 [place] [address] [address]79- [address] January, Asthma with acute exacerbation in adult J45.901 [place] [address] 05718- 0671 January, Dysuria R30.0 ; Vaginal discharge N89.8 and Acute non- recurrent maxillary sinusitis J01.00 [place] [address] 68094- 5761 Dec, [place] [address] 43172- 8696 Dec, Sore throat J02.9 ; Acute mucoid otitis media of left ear H65.112 and Acute non-recurrent maxillary sinusitis J01.00 [place] [address] 36591- 5527 Dec, Bronchitis J40 [facility] [id number] [place] [address] 80448 -8552 Dec, Shortness of breath R06.02 and Mild intermittent asthma without complication J45.20 [place] [id number] [place] [address] 19239- 0736 Nov, Asthma exacerbation J45.901 and Bronchitis J40 [place] [address] 55925- [address]227 Oct, Acute mucoid otitis media of both ears H65.113 and Acute non -recurrent maxillary sinusitis J01.00 [facility] [address] [id number] Oct, Dental examination Z01.20 [place] [address] 03527- 1303 10 Sep, 2016 Exposure to influenza Z20.828 and Upper respiratory tract infection, unspecified type J06.9 [facility] [place] [address] 03634 -3084 27 Aug, 2016 Acute exacerbation of asthma with allergic rhinitis J45.901 [facility] [place] [address] 25064 [address] 15 Aug, 2016 Burning with urination R30.0 and Hematuria R31.[address] 08079- 0793 08 Aug, 2016 Seasonal allergic rhinitis, unspecified allergic rhinitis trigger J30.2 and Dermatitis L30.[address] 35514- 2612 17 Jul, 2016 Follow up Z09 [place] [address] 94661- 2329 15 Jul, [address] 61905- 2916 10 Jul, 2016 Dysuria R30.0 ; Acute vaginitis N76.0 and PID (acute pelvic inflammatory disease) N73.[address] 47170- 7552 02 Jul, 2016 Sore throat J02.9 [facility] [address] 83823 [address]68 16 Jun, 2016 Acute otitis externa of both ears, unspecified type H60.503 [facility] [address] 089[address] -5734 29 May, 2016 Sore throat J02.9 and Pharyngitis, unspecified etiology J02.9 [facility] [address] 25776 -6177 Apr, Dysuria R30.0 [facility] [place] [address] 96954 -4997 18 Mar, 2016 Viral infection B34.9 [facility] [place] [address] 22140 [address]7470 07 Mar, 2016 Dermatitis L30.9 [place] [address] 72624- 7418 27 Feb, 2016 Annual physical exam Z00.00 and Screen for STD (sexually transmitted disease) Z11.3 [facility] [address] 46258 [address]5452 13 Feb, 2016 Pain with urination R30.9 [place] [address] [address]77- 0913 03 Feb, 2016 Other seasonal allergic rhinitis J30.2 [place] [address] 04317- 1030 29 Nov, 2015 Cough R05 and Viral syndrome B34.[address] 64943- 8984 22 Nov, 2015 Oral contraceptive pill surveillance Z30.41 and Left ovarian cyst N83.[address] 55650- 9975 16 Nov, 2015 Ovarian cyst N83.20 and Otitis media of both ears H66.93 [place] [address] 56873- 7250 07 Nov, 2015 Sore throat J02.9 and Streptococcal pharyngitis J02.[address] 88978- 8018 17 Oct, 2015 Ovarian cyst N83.20 ; Hematuria R31.9 ; Urinary crystals R82.99 ; Left sided abdominal pain R10.9 and Allergic rhinitis J30.9 [address] [place] [address] 14 Oct, 2015 [place] [address] [address]19- 3913 11 Oct, 2015 Left lower quadrant pain R10.32 ; Dysuria R30.0 ; History of constipation Z87.19 ; Routine screening for STI (sexually transmitted infection) Z11.3 ; CVA tenderness M54.9 ; Lower abdominal tenderness R10.819 ; Vaginal itching L29.8 and Family history of endometriosis Z84.2 [place] [address] [address]129- 2861 01 Oct, 2015 Asthma attack 493.92 ; UTI symptoms R39.9 and Sinusitis 473.9 [facility] [address] [id number] Aug, Dental examination Z01.20 [place] [address] 89979- 2785 Jul, Scabies B86 [place] [address] 87546- 4608 Jun, Otitis externa of both ears H60.93 [place] [address] 60429- 5513 May, Asthma attack 493.92 [place] [address] 53114- 5706 Apr, Otitis externa of both ears 380.10 [place] [address] 65342- 2358 Apr, Insect bite 919.4 [place] [address] 48826- 4402 Apr, Infective otitis externa 380.10 [place] [address] 91944- 3255 Mar, Acute sinusitis 461.9 [place] [address] 37726- 7155 Mar, Acute pharyngitis 462 [facility] [place] [address] [place] [address] 40775- 6247 Feb, Otitis media of both ears 382.9 [facility] [place] [address] [address] 03 Feb, 2015 Dysuria 788.1 and Urinary tract infection 599.0 [facility] [place] [id number] [place] [address] 97365- 5610 Feb, Dysuria 788.1 [facility] [place] [id number] [place] [address] 20407- 8237 January, Sinusitis 473.9 [facility] [place] [address] [place] [address] 346355- 8109 14 Dec, 2014 [facility] [place] [id number] [place] [address] 45976- 2585 Dec, [facility] [place] [address] [address] Nov, [facility] [place] [id number] [place] [address] 28937- 1554 Nov, [facility] [place] [address] [address] Oct, [facility] [place] [address] [address] 6[address] Oct, [facility] [place] [address] [address] Oct, [facility] [address] [address] Oct, [facility] [place] [address] [address] 1066 Oct, [facility] [place] [address] [place] [address] 978598- 1553 Oct, [facility] [place] [address] [facility] [id number] [place] [address]- 4086 Aug, [facility] [place] [address] [facility] [id number] [address] 2546 Aug, [facility] [place] [address] [facility] [id number] [address]- 2546 Aug, [facility] [place] [address] [facility] [id number] [address]- [address]46 Aug, IMMUNIZATIONS No Known Immunizations SOCIAL HISTORY Never Assessed REASON FOR VISIT Triage, Pt has concerns with her medication bottles that she recieved from [facility], labels were placed on wrong bottles. Corrected the lables and apoligized to patient PLAN OF CARE VITAL SIGNS MEDICATIONS No Known Medications RESULTS No Results PROCEDURES No Known procedures INSTRUCTIONS MEDICATIONS ADMINISTERED No Known Medications MEDICAL (GENERAL) HISTORY Type Description Date Medical History asthma Medical History Seasonal allergies Surgical History myringotomy with ventilating tube x [address] teeth removal 09/01/2015
--- OUTSIDE RECORDS SUMMARY | 2018-06-09 21:15 | XMS REPORT ---
Author Author MARILEE MEJIA [facility] Address [address] [place] [address] Care Team Providers Care [employer] Chief Name Role Phone MARILEE MEJIA Unavailable PROBLEMS Type Condition ICD9-CM Code ZTY13-HJ Code Onset Dates Condition Status SNOMED Code Problem Seasonal allergic rhinitis, unspecified allergic rhinitis trigger J30.2 Active 156463600 Problem Ovarian cyst N83.20 Active 24231245 Problem Gastroesophageal reflux disease, esophagitis presence not specified K21.9 Active 173529674 Problem Chronic maxillary sinusitis J32.0 Active 84848408 Problem GERD (gastroesophageal reflux disease) K21.9 Active 861952888 Problem Mild intermittent asthma without complication J45.20 Active 988089349 Problem Exacerbation of asthma, unspecified asthma severity, unspecified whether persistent J45.901 Active 851956621 Problem Slow transit constipation K59.01 Active 28582186 ALLERGIES Substance Reaction Event Type Date Status SulfADIAZINE Unknown Drug Allergy Mar, Active Penicillin V Potassium Unknown Drug Allergy Mar, Active ENCOUNTERS Encounter Location Date Diagnosis [facility] [id number] [place] [address]73[address] 0976 14 May, 2018 [facility] [id number] [place] [address]6175 05 May, 2018 Dysuria R30.0 and Cyst of right ovary N83.201 [facility] [id number] [place] [address] 69295- 3460 Apr, [facility] [address] [place] [id number] [place] [address] 03130- 4808 Apr, [facility] [id number] [place] [address] 49076- 8303 Mar, [facility] [address] [address] [address] Mar, [place] [address] [address] Mar, Sore throat J02.9 ; Dysuria R30.0 ; Vaginal discharge N89.8 ; Screening for HPV (human papillomavirus) Z11.51 ; Gastroesophageal reflux disease, esophagitis presence not specified K21.9 and Chronic constipation K59.09 [place] [address] [address] 7405 Feb, [place] [address] 59[address] 8639 January, Dysuria R30.0 and Pyelonephritis N12 [place] [address] 31154- 1828 January, [place] [address] 05193- 9954 January, Acute recurrent maxillary sinusitis J01.01 [place] [address] 76520- 0702 Dec, [address] [address]77- 8731 Dec, Lower abdominal pain R10.30 ; Polyuria R35.8 and Earache symptoms in both ears H92.03 [facility] [address] [address] Dec, Gastroenteritis K52.9 [facility] [address] [address] Dec, Dysuria R30.0 ; Yeast infection of the vagina B37.3 and [address] R25.[address] [address]- [address]66 Nov, Exacerbation of asthma, unspecified asthma severity, unspecified whether persistent J45.901 [facility] [address] [place] [address] Nov, Acute frontal sinusitis, recurrence not specified J01.10 ; Post-nasal drainage R09.82 and Chronic asthma without complication, unspecified asthma severity, unspecified whether persistent J45.909 [facility] [place] [address] [address]759 Sep, Acute cystitis with hematuria N30.01 and Dysuria R30.0 [facility] [address] [id number] Sep, [place] [address] 27340- 6365 Sep, Dysuria R30.0 [facility] [address] [place] [address] [id number] Sep, Dental examination Z01.[address] [address]60- 5470 08 Sep, 2017 Encounter for dental examination and cleaning with abnormal findings Z01.21 [facility] [address] [address]10[address] Sep, Tooth pain K08.89 [place] [address] 94720- 2815 Sep, Nevoid hyperpigmentation L81.9 [place] [address] 69960- 8589 Aug, Nevoid hyperpigmentation L81.9 [place] [address] 84000- 0871 Aug, Sore throat J02.9 ; Bronchitis J40 and Irritated nevus D22.9 [place] [address] [address]55- 4779 Aug, Dysuria R30.0 ; Acute cystitis with hematuria N30.01 ; Vaginal yeast infection B37.3 and Slow transit constipation K59.01 [facility] [address] [place] [id number] [place] [address]247 [address]2108 Jul, [facility] [address] [place] [id number] [place] [address] [id number] Jun, Dental examination Z01.20 [facility] [address] [id number] [place] [address] 34284 -5678 Jun, Fluid level behind tympanic membrane of both ears H65.93 [facility] [address] 9[address] -30[address] Jun, Potential exposure to STD Z20.2 ; Dysuria R30.0 ; Vaginal discharge N89.8 and Candidiasis of female genitalia B37.3 [facility] [address] [place] [id number] [place] [address] [id number] Jun, Dental examination Z01.20 [facility] [address] [id number] May, Dental examination Z01.20 [facility] [address] [id number] May, Dental examination Z01.20 [facility] [address] [id number] May, Dental examination Z01.20 [facility] [address] [place] [id number] [place] [address] 62042- 9435 Apr, Dysfunction of both eustachian tubes H69.83 [facility] [address] [place] [id number] [place] [address] 68200 -2955 15 Apr, 2017 GERD (gastroesophageal reflux disease) K21.9 and Sore throat J02.9 [facility] [address] [id number] Apr, Dental examination Z01.20 [facility] [address] [place] [id number] [place] [address] 87242- 2028 07 Apr, 2017 Asthma exacerbation J45.901 [facility] [address] [place] [address] [place] [id number] Mar, Dental examination Z01.20 [facility] [address] [id number] Feb, Dental examination Z01.20 [facility] [address] 56[address] -4088 Feb, Middle ear effusion, bilateral H65.93 [place] [address] 78180- 0149 Feb, Dysuria R30.0 and Diverticulitis of large intestine without perforation or abscess with bleeding K57.33 [place] [address] 67268- 6036 January, Asthma with acute exacerbation in adult J45.901 [place] [address] 54951- 2609 January, Dysuria R30.0 ; Vaginal discharge N89.8 and Acute non- recurrent maxillary sinusitis J01.00 [place] [address] 43492- 0626 Dec, [place] [address] 74844- 2179 Dec, Sore throat J02.9 ; Acute mucoid otitis media of left ear H65.112 and Acute non-recurrent maxillary sinusitis J01.00 [place] [address] 90718- 4322 Dec, Bronchitis J40 [facility] [address] 51862 -6[address] Dec, Shortness of breath R06.02 and Mild intermittent asthma without complication J45.20 [facility] [address] 79344- 6492 Nov, Asthma exacerbation J45.901 and Bronchitis J40 [place] [address] 61552- 5090 21 Oct, 2016 Acute mucoid otitis media of both ears H65.113 and Acute non -recurrent maxillary sinusitis J01.00 [facility] [address] [place] [id number] [place] [address] [id number] 03 Oct, 2016 Dental examination Z01.20 [place] [address] [place] [id number] [place] [address] 42017- 7372 10 Sep, 2016 Exposure to influenza Z20.828 and Upper respiratory tract infection, unspecified type J06.9 [facility] [address] 54362 -6539 27 Aug, 2016 Acute exacerbation of asthma with allergic rhinitis J45.901 [facility] [place] [id number] [place] [address] 06842 -6148 15 Aug, 2016 Burning with urination R30.0 and Hematuria R31.[address] 69457- 8867 08 Aug, 2016 Seasonal allergic rhinitis, unspecified allergic rhinitis trigger J30.2 and Dermatitis L30.[address] 98698- 6904 17 Jul, 2016 Follow up Z09 [place] [id number] [place] [address] 54008- 1355 15 Jul, 2016 [place] [id number] [place] [address] 78530- 9139 10 Jul, 2016 Dysuria R30.0 ; Acute vaginitis N76.0 and PID (acute pelvic inflammatory disease) N73.0 [place] [id number] [place] [address] 04307- 4635 02 Jul, 2016 Sore throat J02.9 [facility] [place] [id number] [place] [address] 95104 -0457 16 Jun, 2016 Acute otitis externa of both ears, unspecified type H60.503 [facility] [address] [place] [address] 29 May, 2016 Sore throat J02.9 and Pharyngitis, unspecified etiology J02.9 [facility] [place] [address] 35644 -5130 Apr, Dysuria R30.0 [facility] [place] [address] 84077 -4973 18 Mar, 2016 Viral infection B34.9 [facility] [place] [address] 39095 -9566 07 Mar, 2016 Dermatitis L30.9 [place] [address] 06241- 8732 27 Feb, 2016 Annual physical exam Z00.00 and Screen for STD (sexually transmitted disease) Z11.3 [facility] [place] [address] 81215 -5319 13 Feb, 2016 Pain with urination R30.9 [place] [address] 08576- 3136 03 Feb, 2016 Other seasonal allergic rhinitis J30.2 [place] [address] 49307- 6259 29 Nov, 2015 Cough R05 and Viral syndrome B34.9 [place] [address] 84088- 4948 22 Nov, 2016 Oral contraceptive pill surveillance Z30.41 and Left ovarian cyst N83.20 [place] [address] 82009- 2646 16 Nov, 2016 Ovarian cyst N83.20 and Otitis media of both ears H66.93 [place] [address] 26910- 7763 07 Nov, 2016 Sore throat J02.9 and Streptococcal pharyngitis J02.0 [place] [address] 92007- 5452 17 Oct, 2015 Ovarian cyst N83.20 ; Hematuria R31.9 ; Urinary crystals R82.99 ; Left sided abdominal pain R10.9 and Allergic rhinitis J30.9 [place] [address] [place] [id number] [place] [address] 92626- 6882 14 Oct, 2015 [place] [address] 71648- 5536 11 Oct, 2015 Left lower quadrant pain R10.32 ; Dysuria R30.0 ; History of constipation Z87.19 ; Routine screening for STI (sexually transmitted infection) Z11.3 ; CVA tenderness M54.9 ; Lower abdominal tenderness R10.819 ; Vaginal itching L29.8 and Family history of endometriosis Z84.2 [place] [address] 73658- 8458 Oct, Asthma attack 493.92 ; UTI symptoms R39.9 and Sinusitis 473.9 [facility] [address] [id number] Aug, Dental examination Z01.20 [place] [address] 10003- 0403 Jul, Scabies B86 [place] [address] 65227- 3306 Jun, Otitis externa of both ears H60.93 [place] [address] 24145- 5705 May, Asthma attack 493.92 [place] [address] 34027- 8523 Apr, Otitis externa of both ears 380.10 [place] [address] 83207- 3251 Apr, Insect bite 919.4 [place] [address] 18437- 0727 Apr, Infective otitis externa 380.10 [facility] [address] [address] Mar, Acute sinusitis 461.9 [facility] [address] [address] 4426 Mar, Acute pharyngitis 462 [facility] [address] [address] 8026 Feb, Otitis media of both ears 382.9 [facility] [address] [address] 5087 Feb, Dysuria 788.1 and Urinary tract infection 599.0 [facility] [address] [place] [address] 665133- 8440 Feb, Dysuria 788.1 [facility] [address] [address]- 8616 January, Sinusitis 473.9 [facility] [address] [address]- 5926 Dec, [facility] [address] [place] [address]- 0793 Dec, [facility] [id number] [address]- 2781 Nov, [facility] [address] [address]- 3277 Nov, [facility] [address] [address]- 7606 Oct, [facility] [address] [address]- 3146 Oct, [facility] [address] Oct, [facility] [address] [place] [id number] [address]- 6104 Oct, [facility] [address] [facility] [id number] [address]- 9014 Oct, [facility] [address] [place] [id number] [address]- 5514 Oct, [facility] [address] [place] [id number] [address]- 2375 Aug, [facility] [id number] [address]- 9027 Aug, [facility] [address] [address]- 9852 Aug, [facility] [id number] [place] [address]- 4126 Aug, IMMUNIZATIONS No Known Immunizations SOCIAL HISTORY Never Assessed REASON FOR VISIT Sore throat--tcuppettRN, Pt reports exposure to strep throat. Has been having a sore throat for approx 1 week, -Dysuria and lower abdominal pain x 1 week PLAN OF CARE Activity Details Follow Up prn. if not improving with PCP or reg follow up Reason: Pending Test PAP REFLEX TO HPV IF ASCUS VITAL SIGNS Height 59 in 2018-04-04 Weight 84.9 lbs 2018-04-04 Temperature 98.4 degrees Fahrenheit 2018-04-04 Heart Rate 72 bpm 2018-04-04 Respiratory Rate 18 2018-04-04 BMI 17.15 kg/m2 2018-04-04 Blood pressure systolic 108 mmHg 2018-04-04 Blood pressure diastolic 70 mmHg 2018-04-04 MEDICATIONS Medication Instructions Dosage Frequency Start Date End Date Duration Status Symbicort 160-4.5 MCG/ACT Inhalation Twice a day 2 puffs 12h 13 Nov, 2017 Active Montelukast Sodium 10 MG TAKE ONE TABLET BY MOUTH IN THE EVENING 30 Active Ranitidine HCl 150 MG Orally twice a day 1 tablet at bedtime 12h 26 Mar, 2018 90 days Active ProAir HFA 108 (90 Base) mcg/act Inhalation every 4 hrs 2 puffs as needed 4h Aug, Active Zyrtec Allergy 10 mg oral daily 1 tablet 24h Active Flonase 50 mcg/act intranasally daily 1 spary each nostril 24h Aug, Active Polyethylene Glycol 3350 17 gm/dose Orally Once a day 17gram 24h Mar, Active RESULTS No Results PROCEDURES Procedure Date Ordered Result Body Site STREP A ASSAY W/OPTIC April 04, 2018 URINALYSIS, AUTO, W/O SCOPE April 04, 2018 TRICHOMONAS ASSAY W/OPTIC April 04, 2018 No Charge April 04, 2018 CULTURE, BACTERIA, OTHER April 04, 2018 Bacterial Vaginosis In House April 04, 2018 INSTRUCTIONS MEDICATIONS ADMINISTERED No Known Medications MEDICAL (GENERAL) HISTORY Type Description Date Medical History asthma Medical History Seasonal allergies Surgical History myringotomy with ventilating tube x 2 Surgical History Moh[place] teeth removal 09/01/2015
--- OUTSIDE RECORDS SUMMARY | 2018-06-09 21:15 | XMS REPORT ---
Author Author MARILEE MEJIA [facility] Address [address] [place] [address] Care Team Providers [employer] Supervisor Name Role Phone MARILEE MEJIA Unavailable PROBLEMS Type Condition ICD9-CM Code GIH08-BB Code Onset Dates Condition Status SNOMED Code Problem Seasonal allergic rhinitis, unspecified allergic rhinitis trigger J30.2 Active 650037084 Problem Ovarian cyst N83.20 Active 91931216 Problem Gastroesophageal reflux disease, esophagitis presence not specified K21.9 Active 668568070 Problem Chronic maxillary sinusitis J32.0 Active 49109182 Problem GERD (gastroesophageal reflux disease) K21.9 Active 115148178 Problem Mild intermittent asthma without complication J45.20 Active 007143015 Problem Exacerbation of asthma, unspecified asthma severity, unspecified whether persistent J45.901 Active 396415510 Problem Slow transit constipation K59.01 Active 37449913 ALLERGIES No Information ENCOUNTERS Encounter Location Date Diagnosis [facility] [id number] [place] [address]98 May, Dysuria R30.0 and Cyst of right ovary N83.201 [facility] [id number] [place] [address] 54667- 5619 Apr, [facility] [address] [address]885 Apr, [facility] [id number] [place] [address] 64873- 0842 Mar, [facility] [address] [address]- 59[address] Mar, [facility] [id number] [place] [address] 09973- 6324 Mar, Sore throat J02.9 ; Dysuria R30.0 ; Vaginal discharge N89.8 ; Screening for HPV (human papillomavirus) Z11.51 ; Gastroesophageal reflux disease, esophagitis presence not specified K21.9 and Chronic constipation K59.09 [place] [address] [place] [id number] Feb, [place] [address] [address]21 January, Dysuria R30.0 and Pyelonephritis N12 [place] [address] [address]- 5668 January, [address] 982058- 1604 January, Acute recurrent maxillary sinusitis J01.01 [place] [address] [address]- 1368 Dec, [address] [address]- 2210 Dec, Lower abdominal pain R10.30 ; Polyuria R35.8 and Earache symptoms in both ears H92.03 [facility] [address] [address] Dec, Gastroenteritis K52.9 [facility] [address] [address] Dec, Dysuria R30.0 ; Yeast infection of the vagina B37.3 and Shaking R25.[address] [address]67- [address]46 Nov, Exacerbation of asthma, unspecified asthma severity, unspecified whether persistent J45.901 [facility] [address] [place] [address]63 Nov, Acute frontal sinusitis, recurrence not specified J01.10 ; Post-nasal drainage R09.82 and Chronic asthma without complication, unspecified asthma severity, unspecified whether persistent J45.909 [facility] [address] [place] [address] Sep, Acute cystitis with hematuria N30.01 and Dysuria R30.0 [facility] [address] [id number] Sep, [address] [address]07[address] Sep, Dysuria R30.0 [facility] [address] [id number] Sep, Dental examination Z01.[address] 16538- 8211 08 Sep, 2017 Encounter for dental examination and cleaning with abnormal findings Z01.21 [facility] [address] [address] Sep, Tooth pain K08.[address] 40756- 3699 Sep, Nevoid hyperpigmentation L81.[address] 67312- 5706 Aug, Nevoid hyperpigmentation L81.[address] 76538- 7464 Aug, Sore throat J02.9 ; Bronchitis J40 and Irritated nevus D22.[address] 26659- 6643 Aug, Dysuria R30.0 ; Acute cystitis with hematuria N30.01 ; Vaginal yeast infection B37.3 and Slow transit constipation K59.01 [facility] [address] [place] [address]24 [address]3807 Jul, [facility] [address] [id number] Jun, Dental examination Z01.20 [facility] [id number] [place] [address]1786 Jun, Fluid level behind tympanic membrane of both ears H65.93 [facility] [id number] [place] [address]66 -8918 Jun, Potential exposure to STD Z20.2 ; Dysuria R30.0 ; Vaginal discharge N89.8 and Candidiasis of female genitalia B37.3 [facility] [address] [id number] Jun, Dental examination Z01.20 [facility] [address] [id number] May, Dental examination Z01.20 [facility] [address] [id number] May, Dental examination Z01.20 [facility] [address] [id number] May, Dental examination Z01.20 [facility] [id number] [place] [address] 99003- 0981 Apr, Dysfunction of both eustachian tubes H69.83 [facility] [id number] [place] [address] 96216 -4817 Apr, GERD (gastroesophageal reflux disease) K21.9 and Sore throat J02.9 [facility] [address] [id number] [place] [address] [id number] Apr, Dental examination Z01.20 [facility] [id number] [place] [address] 73906- 2091 Apr, Asthma exacerbation J45.901 [facility] [address] [id number] Mar, Dental examination Z01.20 [facility] [id number] [place] [address] [id number] 27 Brian, 2017 Dental examination Z01.20 [facility] [id number] [place] [address] 44700 -[address]176 24 Feb, 2017 Middle ear effusion, bilateral H65.93 [place] [id number] [place] [address] 27893- 0515 Feb, Dysuria R30.0 and Diverticulitis of large intestine without perforation or abscess with bleeding K57.33 [place] [address] [address]26- 1672 January, Asthma with acute exacerbation in adult J45.901 [place] [address] 29981- 6708 January, Dysuria R30.0 ; Vaginal discharge N89.8 and Acute non- recurrent maxillary sinusitis J01.00 [place] [address] 02571- 1374 Dec, [place] [address] 99715- 1399 Dec, Sore throat J02.9 ; Acute mucoid otitis media of left ear H65.112 and Acute non-recurrent maxillary sinusitis J01.00 [place] [address] 47671- 8150 Dec, Bronchitis J40 [facility] [id number] [place] [address] 97171 -2931 Dec, Shortness of breath R06.02 and Mild intermittent asthma without complication J45.20 [place] [id number] [place] [address] 58822- 1653 Nov, Asthma exacerbation J45.901 and Bronchitis J40 [place] [address] 35883- 2560 Oct, Acute mucoid otitis media of both ears H65.113 and Acute non -recurrent maxillary sinusitis J01.00 [facility] [address] [id number] Oct, Dental examination Z01.20 [place] [address] 50578- 3869 10 Sep, 2016 Exposure to influenza Z20.828 and Upper respiratory tract infection, unspecified type J06.9 [facility] [place] [address] 42330 [address]8474 27 Aug, 2016 Acute exacerbation of asthma with allergic rhinitis J45.901 [facility] [place] [address] 47079 [address]6613 15 Aug, 2016 Burning with urination R30.0 and Hematuria R31.[address] 85164- 2751 08 Aug, 2016 Seasonal allergic rhinitis, unspecified allergic rhinitis trigger J30.2 and Dermatitis L30.[address] 57984- 4901 17 Jul, 2016 Follow up Z09 [place] [address] 56575- 7590 15 Jul, [address] 91774- 7307 10 Jul, 2016 Dysuria R30.0 ; Acute vaginitis N76.0 and PID (acute pelvic inflammatory disease) N73.[address] 28723- 1172 02 Jul, 2016 Sore throat J02.9 [facility] IN [address] 34703 [address]3230 16 Jun, 2016 Acute otitis externa of both ears, unspecified type H60.503 [facility] [address] 49212 [address]3695 29 May, 2016 Sore throat J02.9 and Pharyngitis, unspecified etiology J02.9 [facility] [address] 79041 [address]0065 Apr, Dysuria R30.0 [facility] [place] [address] 43429 -7135 18 Mar, 2016 Viral infection B34.9 [facility] [place] [address] 24838 -9278 07 Mar, 2016 Dermatitis L30.9 [place] [address] 88172- 8050 27 Feb, 2016 Annual physical exam Z00.00 and Screen for STD (sexually transmitted disease) Z11.3 [facility] [address] 92073 -7328 13 Feb, 2016 Pain with urination R30.9 [place] [address] 99719- 8953 03 Feb, 2016 Other seasonal allergic rhinitis J30.2 [place] [address] 94382- 5263 29 Nov, 2015 Cough R05 and Viral syndrome B34.[address] 07227- 4640 22 Nov, 2015 Oral contraceptive pill surveillance Z30.41 and Left ovarian cyst N83.[address] 03800- 3318 16 Nov, 2015 Ovarian cyst N83.20 and Otitis media of both ears H66.93 [place] [address] 42897- 0315 07 Nov, 2015 Sore throat J02.9 and Streptococcal pharyngitis J02.[address] 26391- 2695 17 Oct, 2015 Ovarian cyst N83.20 ; Hematuria R31.9 ; Urinary crystals R82.99 ; Left sided abdominal pain R10.9 and Allergic rhinitis J30.[address] [place] [address]- [address]24 14 Oct, 2015 [place] [address] 71965- 5000 11 Oct, 2015 Left lower quadrant pain R10.32 ; Dysuria R30.0 ; History of constipation Z87.19 ; Routine screening for STI (sexually transmitted infection) Z11.3 ; CVA tenderness M54.9 ; Lower abdominal tenderness R10.819 ; Vaginal itching L29.8 and Family history of endometriosis Z84.2 [place] [address] 76445- 7419 01 Oct, 2015 Asthma attack 493.92 ; UTI symptoms R39.9 and Sinusitis 473.9 [facility] [address] [id number] Aug, Dental examination Z01.20 [place] [address] 43894- 8730 Jul, Scabies B86 [place] [address] 62913- 6694 Jun, Otitis externa of both ears H60.93 [place] [address] 08375- 1466 May, Asthma attack 493.92 [place] [address] 75041- 4455 Apr, Otitis externa of both ears 380.10 [place] [address] 91813- 8486 Apr, Insect bite 919.4 [place] [address] 33065- 0759 Apr, Infective otitis externa 380.10 [place] [address] 12565- 5588 Mar, Acute sinusitis 461.9 [place] [address] 31237- 1716 Mar, Acute pharyngitis 462 [facility] [address] [place] [address] 92499- 4784 Feb, Otitis media of both ears 382.9 [facility] [address] [address] 03 Feb, 2015 Dysuria 788.1 and Urinary tract infection 599.0 [facility] [id number] [place] [address] 04823- 9288 Feb, Dysuria 788.1 [facility] [id number] [place] [address] 30908- 9424 January, Sinusitis 473.9 [facility] [address] [place] [address] 126709- 4812 14 Dec, 2014 [facility] [id number] [place] [address] 75418- 1999 Dec, [facility] [address] [address]- 8[address] Nov, [facility] [id number] [place] [address] 47515- 1341 Nov, [facility] [address] [address] 6[address] Oct, [facility] [address] [address]- 0151 Oct, [facility] [address] [address]- 360[address] Oct, [facility] [address] Oct, [facility] [address] [address]- 2116 Oct, [facility] [address] [place] [address] 941704- 3470 Oct, [facility] [address] [facility] [id number] [place] [address]- 3506 Aug, [facility] [address] [facility] [id number] [address] 2546 Aug, [facility] [address] [facility] [id number] [address]- [address]65 Aug, [facility] [address] [facility] [id number] [address] 0846 Aug, IMMUNIZATIONS No Known Immunizations SOCIAL HISTORY Never Assessed REASON FOR VISIT request call back PLAN OF CARE VITAL SIGNS MEDICATIONS No Known Medications RESULTS No Results PROCEDURES No Known procedures INSTRUCTIONS MEDICATIONS ADMINISTERED No Known Medications MEDICAL (GENERAL) HISTORY Type Description Date Medical History asthma Medical History Seasonal allergies Surgical History myringotomy with ventilating tube x 2 Surgical History [place] teeth removal 09/01/2015
--- OUTSIDE RECORDS SUMMARY | 2018-06-09 21:16 | XMS REPORT ---
Author Author MARILEE MEJIA [facility] Address [address] [place] [address] Care Team Providers Care Atmospheric Chemist Name Role Phone MARILEE MEJIA Unavailable PROBLEMS Type Condition ICD9-CM Code LMT79-TO Code Onset Dates Condition Status SNOMED Code Problem Seasonal allergic rhinitis, unspecified allergic rhinitis trigger J30.2 Active 421769155 Problem Ovarian cyst N83.20 Active 14282932 Problem Gastroesophageal reflux disease, esophagitis presence not specified K21.9 Active 833264631 Problem Chronic maxillary sinusitis J32.0 Active 80917849 Problem GERD (gastroesophageal reflux disease) K21.9 Active 428639315 Problem Mild intermittent asthma without complication J45.20 Active 376440920 Problem Exacerbation of asthma, unspecified asthma severity, unspecified whether persistent J45.901 Active 014588658 Problem Slow transit constipation K59.01 Active 39705571 ALLERGIES No Information ENCOUNTERS Encounter Location Date Diagnosis [facility] [id number] [place] [address] 47392- 8999 14 May, 2018 [facility] [address] [place] [address]19 -0456 May, Dysuria R30.0 and Cyst of right ovary N83.201 [facility] [address] [place] [address] 94380- 3483 Apr, [facility] [address] [place] [id number] [place] [address] 74257- 3441 Apr, [facility] [address] [place] [place] [id number] [place] [address] 14170- 9567 Mar, [facility] [id number] [place] [address] 27540- 2712 Mar, [facility] [address] 9[address]- 0551 Mar, Sore throat J02.9 ; Dysuria R30.0 ; Vaginal discharge N89.8 ; Screening for HPV (human papillomavirus) Z11.51 ; Gastroesophageal reflux disease, esophagitis presence not specified K21.9 and Chronic constipation K59.09 [place] [address] 40988- 9384 Feb, [place] [address] 81532- 9435 January, Dysuria R30.0 and Pyelonephritis N[address] 381773- 8172 January, [place] [address] 92958- 2591 January, Acute recurrent maxillary sinusitis J01.[address] 64235- 9291 Dec, [address] 30203- 1329 Dec, Lower abdominal pain R10.30 ; Polyuria R35.8 and Earache symptoms in both ears H92.03 [facility] [address] [address]6066 Dec, Gastroenteritis K52.9 [facility] [address] 36[address] Dec, Dysuria R30.0 ; Yeast infection of the vagina B37.3 and Shaking R25.[address] 17541- 6200 Nov, Exacerbation of asthma, unspecified asthma severity, unspecified whether persistent J45.901 [facility] [address] 8[address]6551 Nov, Acute frontal sinusitis, recurrence not specified J01.10 ; Post-nasal drainage R09.82 and Chronic asthma without complication, unspecified asthma severity, unspecified whether persistent J45.909 [facility] [address] 87[address] -7549 Sep, Acute cystitis with hematuria N30.01 and Dysuria R30.0 [facility] [address] [id number] Sep, [place] [address] 09871- 4381 Sep, Dysuria R30.0 [facility] [address] [id number] Sep, Dental examination Z01.20 [place] [address] 25611- 6905 08 Sep, 2017 Encounter for dental examination and cleaning with abnormal findings Z01.21 [facility] [place] [address] 22768 -6446 08 Sep, 2017 Tooth pain K08.[address] 31779- 0889 03 Sep, 2017 Nevoid hyperpigmentation L81.9 [place] [address] 76376- 1143 Aug, Nevoid hyperpigmentation L81.9 [place] [address] 98811- 7942 Aug, Sore throat J02.9 ; Bronchitis J40 and Irritated nevus D22.[address] 44044- 2977 Aug, Dysuria R30.0 ; Acute cystitis with hematuria N30.01 ; Vaginal yeast infection B37.3 and Slow transit constipation K59.01 [facility] [address] 64[address]3645 Jul, [facility] [address] [place] [id number] [place] [address] [id number] Jun, Dental examination Z01.20 [facility] [address] [id number] -0589 Jun, Fluid level behind tympanic membrane of both ears H65.93 [facility] [address] [address]1317 Jun, Potential exposure to STD Z20.2 ; Dysuria R30.0 ; Vaginal discharge N89.8 and Candidiasis of female genitalia B37.3 [facility] [address] [id number] Jun, Dental examination Z01.20 [facility] [address] [id number] May, Dental examination Z01.20 [facility] [address] [id number] May, Dental examination Z01.20 [facility] [address] [id number] May, Dental examination Z01.20 [facility] [address] [id number] [place] [address] [phone] 6435 Apr, Dysfunction of both eustachian tubes H69.83 [facility] [id number] [place] [address] 58565 -5997 Apr, GERD (gastroesophageal reflux disease) K21.9 and Sore throat J02.9 [facility] [address] [place] [id number] [place] [address] [id number] Apr, Dental examination Z01.20 [facility] [address] [id number]- 5070 Apr, Asthma exacerbation J45.901 [facility] [address] [id number] Mar, Dental examination Z01.20 [facility] [address] [id number] [id number] 27 Feb, 2017 Dental examination Z01.20 [facility] [address] [id number] [place] [address] 23365 -3747 24 Feb, 2017 Middle ear effusion, bilateral H65.93 [place] [address] [id number] [place] [address] 35093- 1202 Feb, Dysuria R30.0 and Diverticulitis of large intestine without perforation or abscess with bleeding K57.33 [place] [address] [id number] [place] [address] 62878- 4995 January, Asthma with acute exacerbation in adult J45.901 [place] [address] [place] [id number] [place] [address] 16127- 5750 January, Dysuria R30.0 ; Vaginal discharge N89.8 and Acute non- recurrent maxillary sinusitis J01.00 [place] [address] [place] [id number] [place] [address] 34838- 6089 Dec, [place] [address] [id number] [place] [address] 07716- 1159 Dec, Sore throat J02.9 ; Acute mucoid otitis media of left ear H65.112 and Acute non-recurrent maxillary sinusitis J01.00 [place] [address] [id number] [place] [address] 66562- 5061 Dec, Bronchitis J40 [facility] [address] [place] [address] [id number] [place] [address] 33145 -9101 Dec, Shortness of breath R06.02 and Mild intermittent asthma without complication J45.20 [place] [address] 24457- 0029 Nov, Asthma exacerbation J45.901 and Bronchitis J40 [place] [address] [id number] [place] [address] 54696- 9034 Oct, Acute mucoid otitis media of both ears H65.113 and Acute non -recurrent maxillary sinusitis J01.00 [facility] [address] [place] [address] [id number] 03 Oct, 2016 Dental examination Z01.20 [place] [address] 31596- 9453 10 Sep, 2016 Exposure to influenza Z20.828 and Upper respiratory tract infection, unspecified type J06.9 [facility] [place] [address] 27444 -9944 27 Aug, 2016 Acute exacerbation of asthma with allergic rhinitis J45.901 [facility] [address] 07502 -3131 15 Aug, 2016 Burning with urination R30.0 and Hematuria R31.[address] 46332- 1493 08 Aug, 2016 Seasonal allergic rhinitis, unspecified allergic rhinitis trigger J30.2 and Dermatitis L30.9 [place] [address] 12063- 7875 17 Jul, 2016 Follow up Z09 [place] [address] 36988- 0693 15 Jul, 2016 [place] [address] 39822- 0764 10 Jul, 2016 Dysuria R30.0 ; Acute vaginitis N76.0 and PID (acute pelvic inflammatory disease) N73.0 [place] [address] [id number] [place] [address] 96885- 4619 02 Jul, 2016 Sore throat J02.9 [facility] [address] 65106 -8879 16 Jun, 2016 Acute otitis externa of both ears, unspecified type H60.503 [facility] [address] 13915 -5313 29 May, 2016 Sore throat J02.9 and Pharyngitis, unspecified etiology J02.9 [facility] [place] [id number] [place] [address] 60935 -8030 Apr, Dysuria R30.0 [facility] [address] 54975 -7194 18 Mar, 2016 Viral infection B34.9 [facility] [address] 50190 -3917 07 Mar, 2016 Dermatitis L30.9 [place] [address] 04944- 3630 27 Feb, 2016 Annual physical exam Z00.00 and Screen for STD (sexually transmitted disease) Z11.3 [facility] [address] 67359 -9496 13 Feb, 2016 Pain with urination R30.[address] 49155- 4290 03 Feb, 2016 Other seasonal allergic rhinitis J30.[address] 48260- 4716 Nov, Cough R05 and Viral syndrome B34.[address] 27391- 8905 Nov, Oral contraceptive pill surveillance Z30.41 and Left ovarian cyst N83.[address] 13635- 3647 16 Nov, 2015 Ovarian cyst N83.20 and Otitis media of both ears H66.[address] 91413- 9779 07 Nov, 2015 Sore throat J02.9 and Streptococcal pharyngitis J02.0 [place] [address] 91674- 0914 17 Oct, 2015 Ovarian cyst N83.20 ; Hematuria R31.9 ; Urinary crystals R82.99 ; Left sided abdominal pain R10.9 and Allergic rhinitis J30.9 [place] [address] [place] [id number] [place] [address] 72740- 6360 14 Oct, 2015 [place] [address] 12079- 2702 11 Oct, 2015 Left lower quadrant pain R10.32 ; Dysuria R30.0 ; History of constipation Z87.19 ; Routine screening for STI (sexually transmitted infection) Z11.3 ; CVA tenderness M54.9 ; Lower abdominal tenderness R10.819 ; Vaginal itching L29.8 and Family history of endometriosis Z84.2 [place] [address] 09369- 1280 01 Oct, 2015 Asthma attack 493.92 ; UTI symptoms R39.9 and Sinusitis 473.9 [facility] [address] [id number] Aug, Dental examination Z01.20 [place] [address] 66200- 6246 Jul, Scabies B86 [place] [address] 37594- 6250 Jun, Otitis externa of both ears H60.[address] 35503- 3343 May, Asthma attack 493.92 [place] [address] 67249- 3757 Apr, Otitis externa of both ears 380.10 [place] [address] 97242- 2526 Apr, Insect bite 919.4 [place] [address] 77685- 5998 Apr, Infective otitis externa 380.10 [place] [address] 15477- 9730 Mar, Acute sinusitis 461.9 [facility] [address] [address]- 4886 Mar, Acute pharyngitis 462 [facility] [address] [address]- 7596 Feb, Otitis media of both ears 382.9 [facility] [address] [place] [address] 39082- 0976 Feb, Dysuria 788.1 and Urinary tract infection 599.0 [facility] [address] [address]- 4578 Feb, Dysuria 788.1 [facility] [address] [address]- 3462 January, Sinusitis 473.9 [facility] [address] [place] [address] 23382- 3627 Dec, [facility] [address] [address]- 9177 Dec, [facility] [address] 4708 Nov, [facility] [address]- 6744 Nov, [facility] [address] [address]- 8579 Oct, [facility] [address] [address] 2546 Oct, [facility] [address] [address]- 9946 Oct, [facility] [address] [address]- 2546 Oct, [facility] [address] [address]- 8049 Oct, [facility] [address] [facility] [id number] [address]- 7481 Oct, [facility] [address] [place] [id number] [address]- 9567 Aug, [facility] [address] [facility] [id number] [address]- 2121 Aug, [facility] [address] [id number] [address]- 6448 Aug, [facility] [address] [facility] [id number] [address]- 9390 Aug, IMMUNIZATIONS No Known Immunizations SOCIAL HISTORY Never Assessed REASON FOR VISIT Requests return call PLAN OF CARE VITAL SIGNS MEDICATIONS Unknown Medications RESULTS No Results PROCEDURES No Known procedures INSTRUCTIONS MEDICATIONS ADMINISTERED No Known Medications MEDICAL (GENERAL) HISTORY Type Description Date Medical History asthma Medical History Seasonal allergies Surgical History myringotomy with ventilating tube x 2 Surgical History 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
--- OUTSIDE RECORDS SUMMARY | 2018-06-09 21:16 | XMS REPORT ---
Author Author MARILEE MEJIA [facility] Address [address] [place] [address] Care Team Providers Care Dental Service Technician Name Role Phone MARILEE MEJIA Unavailable PROBLEMS Type Condition ICD9-CM Code NQS09-WN Code Onset Dates Condition Status SNOMED Code Problem Seasonal allergic rhinitis, unspecified allergic rhinitis trigger J30.2 Active 561094648 Problem Ovarian cyst N83.20 Active 16504316 Problem Gastroesophageal reflux disease, esophagitis presence not specified K21.9 Active 485646732 Problem Chronic maxillary sinusitis J32.0 Active 54656492 Problem GERD (gastroesophageal reflux disease) K21.9 Active 038917570 Problem Mild intermittent asthma without complication J45.20 Active 992933137 Problem Exacerbation of asthma, unspecified asthma severity, unspecified whether persistent J45.901 Active 043275167 Problem Slow transit constipation K59.01 Active 22364611 ALLERGIES No Information ENCOUNTERS Encounter Location Date Diagnosis [facility] [id number] [place] [address] 48441- 9733 14 May, 2018 [facility] [address] [place] [address] 64946 -5409 May, Dysuria R30.0 and Cyst of right ovary N83.201 [facility] [address] [place] [address] 84039- 5518 Apr, [facility] [address] [place] [id number] [place] [address] 65527- 7948 Apr, [facility] [address] [id number] [place] [address] 83628- 5014 Mar, [facility] [address] [place] [address] 30973- 5436 Mar, [facility] [address] 9[address]- 5578 Mar, Sore throat J02.9 ; Dysuria R30.0 ; Vaginal discharge N89.8 ; Screening for HPV (human papillomavirus) Z11.51 ; Gastroesophageal reflux disease, esophagitis presence not specified K21.9 and Chronic constipation K59.09 [place] [address] [address]- 2447 Feb, [place] [address] 47021- 6770 January, Dysuria R30.0 and Pyelonephritis N[address] 831438- 2503 January, [place] [address] 56109- 8216 January, Acute recurrent maxillary sinusitis J01.[address] 05058- 3657 Dec, [address] 99514- 4705 Dec, Lower abdominal pain R10.30 ; Polyuria R35.8 and Earache symptoms in both ears H92.03 [facility] [address] 8[address]3472 Dec, Gastroenteritis K52.9 [facility] [address] 30747 -[address]243 Dec, Dysuria R30.0 ; Yeast infection of the vagina B37.3 and Shaking R25.[address] 24303- 6567 Nov, Exacerbation of asthma, unspecified asthma severity, unspecified whether persistent J45.901 [facility] [address] 7[address]6895 Nov, Acute frontal sinusitis, recurrence not specified J01.10 ; Post-nasal drainage R09.82 and Chronic asthma without complication, unspecified asthma severity, unspecified whether persistent J45.909 [facility] [address] 19[address]1671 Sep, Acute cystitis with hematuria N30.01 and Dysuria R30.0 [facility] [address] [id number] Sep, [place] [address] 03775- 5440 Sep, Dysuria R30.0 [facility] [address] [id number] Sep, Dental examination Z01.20 [place] [address] 43556- 6221 08 Sep, 2017 Encounter for dental examination and cleaning with abnormal findings Z01.21 [facility] [place] [address] 60941 -6318 08 Sep, 2017 Tooth pain K08.[address] 75602- 6526 03 Sep, 2017 Nevoid hyperpigmentation L81.9 [place] [address] 11519- 1358 Aug, Nevoid hyperpigmentation L81.9 [place] [address] 18765- 1286 Aug, Sore throat J02.9 ; Bronchitis J40 and Irritated nevus D22.[address] 63245- 2854 Aug, Dysuria R30.0 ; Acute cystitis with hematuria N30.01 ; Vaginal yeast infection B37.3 and Slow transit constipation K59.01 [facility] [address] 9[address]34 [address]0146 Jul, [facility] [address] [place] [id number] [place] [address] [id number] Jun, Dental examination Z01.20 [facility] [address] [id number] -6584 Jun, Fluid level behind tympanic membrane of both ears H65.93 [facility] [address] 85931 -4132 Jun, Potential exposure to STD Z20.2 ; Dysuria R30.0 ; Vaginal discharge N89.8 and Candidiasis of female genitalia B37.3 [facility] [address] [id number] Jun, Dental examination Z01.20 [facility] [address] [id number] May, Dental examination Z01.20 [facility] [address] [id number] May, Dental examination Z01.20 [facility] [address] [id number] May, Dental examination Z01.20 [facility] [address] [place] [id number] [place] [address] [id number]- 9764 Apr, Dysfunction of both eustachian tubes H69.83 [facility] [address] [place] [id number] [place] [address] 61250 -9468 Apr, GERD (gastroesophageal reflux disease) K21.9 and Sore throat J02.9 [facility] [address] [place] [id number] [place] [address] [id number] Apr, Dental examination Z01.20 [facility] [address] [id number]- 4558 Apr, Asthma exacerbation J45.901 [facility] [address] [id number] Mar, Dental examination Z01.20 [facility] [address] [id number] [id number] 27 Feb, 2017 Dental examination Z01.20 [facility] [address] [place] [id number] [place] [address] 81056 -3429 24 Feb, 2017 Middle ear effusion, bilateral H65.93 [place] [address] [place] [id number] [place] [address] 83238- 0158 Feb, Dysuria R30.0 and Diverticulitis of large intestine without perforation or abscess with bleeding K57.33 [place] [address] [place] [id number] [place] [address] 67275- 8085 January, Asthma with acute exacerbation in adult J45.901 [place] [address] [place] [id number] [place] [address] 78545- 1398 January, Dysuria R30.0 ; Vaginal discharge N89.8 and Acute non- recurrent maxillary sinusitis J01.00 [place] [address] [place] [id number] [place] [address] 34770- 9041 Dec, [place] [address] [place] [id number] [place] [address] 42359- 3847 Dec, Sore throat J02.9 ; Acute mucoid otitis media of left ear H65.112 and Acute non-recurrent maxillary sinusitis J01.00 [place] [address] [place] [id number] [place] [address] 38938- 5992 Dec, Bronchitis J40 [facility] [address] [place] [id number] [place] [address] 36961 -7289 Dec, Shortness of breath R06.02 and Mild intermittent asthma without complication J45.20 [place] [address] 75187- 3327 Nov, Asthma exacerbation J45.901 and Bronchitis J40 [place] [address] [place] [id number] [place] [address] 27809- 1121 Oct, Acute mucoid otitis media of both ears H65.113 and Acute non -recurrent maxillary sinusitis J01.00 [facility] [address] [place] [address] [id number] 03 Oct, 2016 Dental examination Z01.20 [place] [address] 51228- 4963 10 Sep, 2016 Exposure to influenza Z20.828 and Upper respiratory tract infection, unspecified type J06.9 [facility] [place] [address] 02042 -2217 27 Aug, 2016 Acute exacerbation of asthma with allergic rhinitis J45.901 [facility] [address] 20886 -6524 15 Aug, 2016 Burning with urination R30.0 and Hematuria R31.[address] 86689- 0247 08 Aug, 2016 Seasonal allergic rhinitis, unspecified allergic rhinitis trigger J30.2 and Dermatitis L30.9 [place] [address] 02071- 0463 17 Jul, 2016 Follow up Z09 [place] [address] 21556- 8831 15 Jul, 2016 [place] [address] 15618- 0694 10 Jul, 2016 Dysuria R30.0 ; Acute vaginitis N76.0 and PID (acute pelvic inflammatory disease) N73.0 [place] [address] [place] [id number] [place] [address] 97333- 2739 02 Jul, 2016 Sore throat J02.9 [facility] [address] 74657 -9078 16 Jun, 2016 Acute otitis externa of both ears, unspecified type H60.503 [facility] [address] 89202 -4065 29 May, 2016 Sore throat J02.9 and Pharyngitis, unspecified etiology J02.9 [facility] [place] [id number] [place] [address] 06229 -8398 Apr, Dysuria R30.0 [facility] [address] 74215 -5789 18 Mar, 2016 Viral infection B34.9 [facility] [address] 44675 -1603 07 Mar, 2016 Dermatitis L30.9 [place] [address] 09287- 2694 27 Feb, 2016 Annual physical exam Z00.00 and Screen for STD (sexually transmitted disease) Z11.3 [facility] [address] 18479 -0552 13 Feb, 2016 Pain with urination R30.[address] 12747- 0578 03 Feb, 2016 Other seasonal allergic rhinitis J30.[address] 37231- 9379 Nov, Cough R05 and Viral syndrome B34.[address] 23945- 0177 Nov, Oral contraceptive pill surveillance Z30.41 and Left ovarian cyst N83.[address] 66585- 8895 16 Nov, 2015 Ovarian cyst N83.20 and Otitis media of both ears H66.[address] 40399- 3474 07 Nov, 2015 Sore throat J02.9 and Streptococcal pharyngitis J02.0 [place] [address] 00480- 6081 17 Oct, 2015 Ovarian cyst N83.20 ; Hematuria R31.9 ; Urinary crystals R82.99 ; Left sided abdominal pain R10.9 and Allergic rhinitis J30.9 [place] [address] [place] [id number] [place] [address] 79429- 0132 14 Oct, 2015 [place] [address] 30509- 2471 11 Oct, 2015 Left lower quadrant pain R10.32 ; Dysuria R30.0 ; History of constipation Z87.19 ; Routine screening for STI (sexually transmitted infection) Z11.3 ; CVA tenderness M54.9 ; Lower abdominal tenderness R10.819 ; Vaginal itching L29.8 and Family history of endometriosis Z84.2 [place] [address] 72043- 1523 01 Oct, 2015 Asthma attack 493.92 ; UTI symptoms R39.9 and Sinusitis 473.9 [facility] [address] [id number] Aug, Dental examination Z01.20 [place] [address] 78823- 1199 Jul, Scabies B86 [place] [address] 00392- 2679 Jun, Otitis externa of both ears H60.[address] 82723- 5392 May, Asthma attack 493.92 [place] [address] 62692- 1533 Apr, Otitis externa of both ears 380.10 [place] [address] 51275- 5278 Apr, Insect bite 919.4 [place] [address] 64879- 6380 Apr, Infective otitis externa 380.10 [place] [address] 75300- 7960 Mar, Acute sinusitis 461.9 [facility] [address] [address]- 2756 Mar, Acute pharyngitis 462 [facility] [address] [address]- 8226 Feb, Otitis media of both ears 382.9 [facility] [address] [place] [address] 28586- 0556 Feb, Dysuria 788.1 and Urinary tract infection 599.0 [facility] [address] [address]- 3747 Feb, Dysuria 788.1 [facility] [address] 6931 January, Sinusitis 473.9 [facility] [address] [place] [address] 61843- 5775 Dec, [facility] [address] [address] [address]84 Dec, [facility] [address]- 9[address] Nov, [facility] [address]- 3369 Nov, [facility] [address] [address]- 6047 Oct, [facility] [address] [place] [address] 2546 Oct, [facility] [address] [address]- 4826 Oct, [facility] [address] [address]- 2546 Oct, [facility] [address] [place] [address] 0878 Oct, [facility] [address] [facility] [id number] [address]- 0886 Oct, [facility] [address] [facility] [id number] [address]- 2546 Aug, [facility] [address] [facility] [id number] [address]- 2546 Aug, [facility] [address] [facility] [id number] [address]- 2546 Aug, [facility] [address] [facility] [id number] [address]- 5836 Aug, IMMUNIZATIONS No Known Immunizations SOCIAL HISTORY Never Assessed REASON FOR VISIT Rx from lab PLAN OF CARE VITAL SIGNS MEDICATIONS Medication Instructions Dosage Frequency Start Date End Date Duration Status Fluconazole 150 MG Orally Take one dose now and repeat dose in 72 hours 1 tablet Mar, Active RESULTS No Results PROCEDURES No Known procedures INSTRUCTIONS MEDICATIONS ADMINISTERED No Known Medications MEDICAL (GENERAL) HISTORY Type Description Date Medical History asthma Medical History Seasonal allergies Surgical History myringotomy with ventilating tube x 2 Surgical History Surprise teeth removal 09/01/2015
--- OUTSIDE RECORDS SUMMARY | 2018-06-09 21:16 | XMS REPORT ---
Author Author MARILEE MEJIA [facility] Address [address] [place] [address] Care Team Providers Care Digital Communications Manager Name Role Phone MARILEE MEJIA Unavailable PROBLEMS Type Condition ICD9-CM Code [id number] Code Onset Dates Condition Status SNOMED Code Problem Seasonal allergic rhinitis, unspecified allergic rhinitis trigger J30.2 Active 964327531 Problem Ovarian cyst N83.20 Active 87443356 Problem Gastroesophageal reflux disease, esophagitis presence not specified K21.9 Active 572508736 Problem Chronic maxillary sinusitis J32.0 Active 48320098 Problem GERD (gastroesophageal reflux disease) K21.9 Active 488905667 Problem Mild intermittent asthma without complication J45.20 Active 923640769 Problem Exacerbation of asthma, unspecified asthma severity, unspecified whether persistent J45.901 Active 472514380 Problem Slow transit constipation K59.01 Active 02524438 ALLERGIES No Information ENCOUNTERS Encounter Location Date Diagnosis [place] [id number] [place] [address] 89414- 1205 Apr, [place] [id number] [place] [address] 17422- 3730 Apr, [place] [id number] [place] [address] 84054- 0330 Mar, [facility] [place] [address] [address]- [address] Mar, [place] [address] [address]- 3812 Mar, Sore throat J02.9 ; Dysuria R30.0 ; Vaginal discharge N89.8 ; Screening for HPV (human papillomavirus) Z11.51 ; Gastroesophageal reflux disease, esophagitis presence not specified K21.9 and Chronic constipation K59.09 [place] [id number] [place] [address] 26104- 5458 Feb, [place] [address] 0[address]- 3297 January, Dysuria R30.0 and Pyelonephritis N12 [place] [address] 78044- 0638 January, [place] [address] 84223- 0918 January, Acute recurrent maxillary sinusitis J01.01 [place] [address] 88668- 1347 Dec, [place] [id number] [place] [address] 04296- 0074 Dec, Lower abdominal pain R10.30 ; Polyuria R35.8 and Earache symptoms in both ears H92.03 [facility] [id number] [place] [address] 27725 -9652 Dec, Gastroenteritis K52.[address] [facility] [address] [place] [id number] [place] [address] 75563 -9602 Dec, Dysuria R30.0 ; Yeast infection of the vagina B37.3 and Shaking R25.1 [place] [id number] [place] [address] 64661- 7221 Nov, Exacerbation of asthma, unspecified asthma severity, unspecified whether persistent J45.[address] [facility] [id number] [place] [address] 99974 -9219 Nov, Acute frontal sinusitis, recurrence not specified J01.10 ; Post-nasal drainage R09.82 and Chronic asthma without complication, unspecified asthma severity, unspecified whether persistent J45.[address] [facility] [address] [place] [id number] [place] [address] 89710 -8974 Sep, Acute cystitis with hematuria N30.01 and Dysuria R30.0 [facility] [id number] [place] [address] [id number] Sep, [place] [address] 09184- 5725 Sep, Dysuria R30.0 [facility] [id number] [place] [address] [id number] Sep, Dental examination Z01.20 [place] [address] 14392- 8571 08 Sep, 2017 Encounter for dental examination and cleaning with abnormal findings Z01.21 [facility] [address] 39835 -6258 08 Sep, 2017 Tooth pain K08.89 [place] [address] 73298- 5820 Sep, Nevoid hyperpigmentation L81.9 [place] [address] 54124- 0478 Aug, Nevoid hyperpigmentation L81.9 [place] [address] 62124- 0763 Aug, Sore throat J02.9 ; Bronchitis J40 and Irritated nevus D22.9 [place] [id number] [place] [address] 42665- 8553 Aug, Dysuria R30.0 ; Acute cystitis with hematuria N30.01 ; Vaginal yeast infection B37.3 and Slow transit constipation K59.01 [facility] [id number] [place] [address] 27537 -2317 Jul, [facility] [address] [id number] Jun, Dental examination Z01.20 [facility] [id number] [place] [address] 59925 -8496 Jun, Fluid level behind tympanic membrane of both ears H65.93 [facility] [id number] [place] [address] [phone] -[phone] Jun, Potential exposure to STD Z20.2 ; Dysuria R30.0 ; Vaginal discharge N89.8 and Candidiasis of female genitalia B37.3 [facility] [id number] [place] [address] [id number] Jun, Dental examination Z01.20 [facility] [address] [id number] May, Dental examination Z01.20 [facility] [address] [id number] May, Dental examination Z01.20 [facility] [address] [id number] May, Dental examination Z01.20 [facility] [place] [address] [id number] 7606 Apr, Dysfunction of both eustachian tubes H69.83 [facility] [id number] [place] [address] 54014 -9173 Apr, GERD (gastroesophageal reflux disease) K21.9 and Sore throat J02.9 [facility] [id number] [place] [address] [id number] Apr, Dental examination Z01.20 [facility] [place] [id number] [place] [address] 38992- 8031 Apr, Asthma exacerbation J45.901 [facility] [id number] [place] [address] [id number] Mar, Dental examination Z01.20 [facility] [id number] [place] [address] [id number] Feb, Dental examination Z01.20 [facility] [id number] [place] [address] [phone] Feb, Middle ear effusion, bilateral H65.93 [facility] [place] [id number] [place] [address] 54397- 2816 Feb, Dysuria R30.0 and Diverticulitis of large intestine without perforation or abscess with bleeding K57.33 [place] [id number] [place] [address] 80143- 9231 January, Asthma with acute exacerbation in adult J45.901 [place] [address] 61107- 3910 January, Dysuria R30.0 ; Vaginal discharge N89.8 and Acute non- recurrent maxillary sinusitis J01.00 [place] [address] 82456- 3976 Dec, [place] [address] 07116- 7537 Dec, Sore throat J02.9 ; Acute mucoid otitis media of left ear H65.112 and Acute non-recurrent maxillary sinusitis J01.00 [place] [id number] [place] [address] 92758- 3380 Dec, Bronchitis J40 [facility] [id number] [place] [address] 59712 -9748 Dec, Shortness of breath R06.02 and Mild intermittent asthma without complication J45.20 [place] [id number] [place] [address] 59848- 7986 Nov, Asthma exacerbation J45.901 and Bronchitis J40 [place] [id number] [place] [address] 75596- 8775 Oct, Acute mucoid otitis media of both ears H65.113 and Acute non -recurrent maxillary sinusitis J01.00 [facility] [id number] [place] [address] [id number] 03 Oct, 2016 Dental examination Z01.20 [facility] [place] [address] 23598- 7063 Sep, Exposure to influenza Z20.828 and Upper respiratory tract infection, unspecified type J06.9 [facility] [place] [address] 45681 -0384 27 Aug, 2016 Acute exacerbation of asthma with allergic rhinitis J45.901 [facility] [place] [address] 14710 -1653 15 Aug, 2016 Burning with urination R30.0 and Hematuria R31.9 [place] [address] 28966- 2103 08 Aug, 2016 Seasonal allergic rhinitis, unspecified allergic rhinitis trigger J30.2 and Dermatitis L30.9 [place] [address] 34846- 0717 17 Jul, 2016 Follow up Z09 [address] 61042- 2458 15 Jul, 2016 [place] [address] 92537- 4151 10 Jul, 2016 Dysuria R30.0 ; Acute vaginitis N76.0 and PID (acute pelvic inflammatory disease) N73.0 [place] [address] 65827- 6399 02 Jul, 2016 Sore throat J02.9 [facility] [place] [address] 62009 -8303 16 Jun, 2016 Acute otitis externa of both ears, unspecified type H60.503 [facility] [place] [address] 71368 -5396 29 May, 2016 Sore throat J02.9 and Pharyngitis, unspecified etiology J02.9 [facility] [place] [address] 15613 -2737 Apr, Dysuria R30.0 [facility] [place] [address] 31099 -0201 Mar, Viral infection B34.9 [facility] [address] 23[address] -1987 07 Mar, 2016 Dermatitis L30.9 [place] [address] 11769- 1174 27 Feb, 2016 Annual physical exam Z00.00 and Screen for STD (sexually transmitted disease) Z11.3 [facility] [place] [address] 79063 -1217 13 Feb, 2016 Pain with urination R30.[address] 01793- 9458 03 Feb, 2016 Other seasonal allergic rhinitis J30.[address] 86813- 4284 29 Nov, 2015 Cough R05 and Viral syndrome B34.[address] 70945- 3957 22 Nov, 2015 Oral contraceptive pill surveillance Z30.41 and Left ovarian cyst N83.[address] 93494- 0603 16 Nov, 2015 Ovarian cyst N83.20 and Otitis media of both ears H66.[address] 47866- 9541 07 Nov, 2015 Sore throat J02.9 and Streptococcal pharyngitis J02.0 [place] [address] 90163- 2689 17 Oct, 2015 Ovarian cyst N83.20 ; Hematuria R31.9 ; Urinary crystals R82.99 ; Left sided abdominal pain R10.9 and Allergic rhinitis J30.9 [place] [address] 60075- 6930 14 Oct, 2015 [place] [address] 33598- 3750 11 Oct, 2015 Left lower quadrant pain R10.32 ; Dysuria R30.0 ; History of constipation Z87.19 ; Routine screening for STI (sexually transmitted infection) Z11.3 ; CVA tenderness M54.9 ; Lower abdominal tenderness R10.819 ; Vaginal itching L29.8 and Family history of endometriosis Z84.2 [place] [id number] [place] [address] 77165- 4645 01 Oct, 2015 Asthma attack 493.92 ; UTI symptoms R39.9 and Sinusitis 473.9 [facility] [address] [id number] Aug, Dental examination Z01.20 [place] [address] 96317- 3336 Jul, Scabies B86 [address] 61763- 7243 Jun, Otitis externa of both ears H60.93 [place] [address] 98905- 4529 May, Asthma attack 493.92 [place] [address] 17547- 9874 Apr, Otitis externa of both ears 380.10 [place] [id number] [place] [address] 21779- 2829 Apr, Insect bite 919.4 [place] [address] 27128- 3463 Apr, Infective otitis externa 380.10 [place] [address] 67161- 1719 Mar, Acute sinusitis 461.9 [place] [address] 22576- 8446 Mar, Acute pharyngitis 462 [place] [address] 81284- 3794 Feb, Otitis media of both ears 382.9 [facility] [address] [address]- 6016 Feb, Dysuria 788.1 and Urinary tract infection 599.0 [facility] [address] [address]- 0946 Feb, Dysuria 788.1 [facility] [address] [address]- 5686 January, Sinusitis 473.9 [facility] [address] [address]- 4406 Dec, [facility] [id number] [address]- 0992 Dec, [facility] [address] [address] Nov, [facility] [address] [address] Nov, [facility] [address]- 4095 Oct, [facility] [address]- 9296 Oct, [facility] [address] [address]- 0756 Oct, [facility] [id number] [address]- 4930 Oct, [facility] [address] [address]- 2196 Oct, [facility] [id number] [address]- 1676 Oct, [facility] [id number] [address]- 6586 Aug, [facility] [place] [address] [facility] [id number] [place] [address]- 6342 Aug, [facility] [place] [address] [facility] [id number] [address]- 9852 Aug, [facility] [place] [address] [facility] [id number] [place] [address]- 3476 Aug, IMMUNIZATIONS No Known Immunizations SOCIAL HISTORY Never Assessed REASON FOR VISIT Requests return call/labs PLAN OF CARE VITAL SIGNS MEDICATIONS Unknown Medications RESULTS No Results PROCEDURES No Known procedures INSTRUCTIONS MEDICATIONS ADMINISTERED No Known Medications MEDICAL (GENERAL) HISTORY Type Description Date Medical History asthma Medical History Seasonal allergies Surgical History myringotomy with ventilating tube x 2 Surgical History Reading teeth removal 09/01/2015
--- OUTSIDE RECORDS SUMMARY | 2018-06-09 21:17 | XMS REPORT ---
Author Author MARILEE MEJIA [facility] Address [address] [place] [address] Care Team Providers Care Dice Spotter Name Role Phone MARILEE MEJIA Unavailable PROBLEMS Type Condition ICD9-CM Code TKT96-MB Code Onset Dates Condition Status SNOMED Code Problem Seasonal allergic rhinitis, unspecified allergic rhinitis trigger J30.2 Active 456837182 Problem Ovarian cyst N83.20 Active 18273886 Problem Gastroesophageal reflux disease, esophagitis presence not specified K21.9 Active 575445128 Problem Chronic maxillary sinusitis J32.0 Active 09989955 Problem GERD (gastroesophageal reflux disease) K21.9 Active 626997853 Problem Mild intermittent asthma without complication J45.20 Active 921844719 Problem Exacerbation of asthma, unspecified asthma severity, unspecified whether persistent J45.901 Active 223761827 Problem Slow transit constipation K59.01 Active 58433407 ALLERGIES Substance Reaction Event Type Date Status SulfADIAZINE Unknown Drug Allergy January, Active Penicillin V Potassium Unknown Drug Allergy January, Active ENCOUNTERS Encounter Location Date Diagnosis [facility] [id number] [place] [address]386- 5063 Apr, [facility] [address] [place] [address] 07860- 7990 Apr, [facility] [address] [place] [id number] [place] [address] 76957- 9244 Mar, [facility] [address] [place] [id number] [place] [address] 75755- 0315 Mar, [facility] [address] [place] [address] 49369- 0548 Mar, Sore throat J02.9 ; Dysuria R30.0 ; Vaginal discharge N89.8 ; Screening for HPV (human papillomavirus) Z11.51 ; Gastroesophageal reflux disease, esophagitis presence not specified K21.9 and Chronic constipation K59.09 [place] [address] [address] Feb, [place] [address] [address] January, Dysuria R30.0 and Pyelonephritis N12 [place] [address] 9[address]81- 8615 January, [place] [address] [address]61- [address] January, Acute recurrent maxillary sinusitis J01.01 [place] [address] 46830- [address]8 Dec, [place] [address] 69969- 8308 Dec, Lower abdominal pain R10.30 ; Polyuria R35.8 and Earache symptoms in both ears H92.03 [facility] [address] [address] Dec, Gastroenteritis K52.9 [facility] [address] 85[address] Dec, Dysuria R30.0 ; Yeast infection of the vagina B37.3 and Shaking R25.1 [place] [address] 15008- 1282 Nov, Exacerbation of asthma, unspecified asthma severity, unspecified whether persistent J45.901 [facility] [address] [place] [address]679 -4385 Nov, Acute frontal sinusitis, recurrence not specified J01.10 ; Post-nasal drainage R09.82 and Chronic asthma without complication, unspecified asthma severity, unspecified whether persistent J45.909 [facility] [address] [place] [address]91 -7513 Sep, Acute cystitis with hematuria N30.01 and Dysuria R30.0 [facility] [address] [id number] Sep, [facility] [address] 60913- 1684 Sep, Dysuria R30.0 [facility] [address] [id number] Sep, Dental examination Z01.[address] 11863- [address]338 08 Sep, 2017 Encounter for dental examination and cleaning with abnormal findings Z01.21 [facility] [address] [place] [address] 8[address]13 -2009 08 Sep, 2017 Tooth pain K08.[address] 43230- 6169 Sep, Nevoid hyperpigmentation L81.[address] 40815- 2979 Aug, Nevoid hyperpigmentation L81.[address] 64691- 7941 Aug, Sore throat J02.9 ; Bronchitis J40 and Irritated nevus D22.[address] 24589- 9601 Aug, Dysuria R30.0 ; Acute cystitis with hematuria N30.01 ; Vaginal yeast infection B37.3 and Slow transit constipation K59.01 [facility] [address] [place] [address]376 -3278 Jul, [facility] [address] [id number] Jun, Dental examination Z01.20 [facility] [address] [place] [address] [place] [address] Jun, Fluid level behind tympanic membrane of both ears H65.93 [facility] [address] [place] [id number] -2403 Jun, Potential exposure to STD Z20.2 ; Dysuria R30.0 ; Vaginal discharge N89.8 and Candidiasis of female genitalia B37.3 [facility] [address] [id number] Jun, Dental examination Z01.20 [facility] [address] [id number] May, Dental examination Z01.20 [facility] [address] [id number] May, Dental examination Z01.20 [facility] [address] [id number] May, Dental examination Z01.20 [facility] [address] 03696- 8317 Apr, Dysfunction of both eustachian tubes H69.83 [facility] [address] [place] [address]34 -3731 Apr, GERD (gastroesophageal reflux disease) K21.9 and Sore throat J02.9 [facility] [address] [id number] Apr, Dental examination Z01.20 [facility] [address] [place] [id number] [place] [address] [id number]- 2180 Apr, Asthma exacerbation J45.901 [facility] [address] [id number] Mar, Dental examination Z01.20 [facility] [address] [id number] Feb, Dental examination Z01.20 [facility] [address] 76086 -1460 Feb, Middle ear effusion, bilateral H65.93 [place] [address] [place] [id number] [place] [address] 32509- 0012 Feb, Dysuria R30.0 and Diverticulitis of large intestine without perforation or abscess with bleeding K57.33 [place] [address] 49577- 0231 January, Asthma with acute exacerbation in adult J45.901 [place] [address] 99089- 7651 January, Dysuria R30.0 ; Vaginal discharge N89.8 and Acute non- recurrent maxillary sinusitis J01.00 [place] [address] [place] [id number] [place] [address] 27303- 7696 Dec, [place] [address] 09631- 7315 Dec, Sore throat J02.9 ; Acute mucoid otitis media of left ear H65.112 and Acute non-recurrent maxillary sinusitis J01.00 [place] [address] 40810- 3445 Dec, Bronchitis J40 [facility] [address] [place] [id number] [place] [address] 04173 -0685 Dec, Shortness of breath R06.02 and Mild intermittent asthma without complication J45.20 [facility] [address] [place] [id number] [place] [address] 52767- 1338 Nov, Asthma exacerbation J45.901 and Bronchitis J40 [facility] [address] 80653- 5101 Oct, Acute mucoid otitis media of both ears H65.113 and Acute non -recurrent maxillary sinusitis J01.00 [facility] [address] [place] [address] [id number] 03 Oct, 2016 Dental examination Z01.20 [place] [address] [place] [id number] [place] [address] 39681- 8869 10 Sep, 2016 Exposure to influenza Z20.828 and Upper respiratory tract infection, unspecified type J06.9 [facility] [place] [address] [address]79 27 Aug, 2016 Acute exacerbation of asthma with allergic rhinitis J45.901 [facility] [address] 18412 -1438 15 Aug, 2016 Burning with urination R30.0 and Hematuria R31.[address] 82005- 0787 08 Aug, 2016 Seasonal allergic rhinitis, unspecified allergic rhinitis trigger J30.2 and Dermatitis L30.[address] 71206- 2900 17 Jul, 2016 Follow up Z09 [place] [address] 67817- 3343 15 Jul, 2016 [place] [address] 90305- 8447 10 Jul, 2016 Dysuria R30.0 ; Acute vaginitis N76.0 and PID (acute pelvic inflammatory disease) N73.[address] 04130- 2151 02 Jul, 2016 Sore throat J02.9 [facility] [address] 07611 -5884 16 Jun, 2016 Acute otitis externa of both ears, unspecified type H60.503 [facility] [address] 10666 -2141 29 May, 2016 Sore throat J02.9 and Pharyngitis, unspecified etiology J02.9 [facility] [place] [id number] [place] [address] 50587 -0098 Apr, Dysuria R30.0 [facility] [address] [place] [id number] [place] [address] 49692 -9098 18 Mar, 2016 Viral infection B34.9 [facility] [place] [address] 43892 -2731 07 Mar, 2016 Dermatitis L30.9 [place] [address] 25249- 1572 27 Feb, 2016 Annual physical exam Z00.00 and Screen for STD (sexually transmitted disease) Z11.3 [facility] [place] [address] 60747 -1862 13 Feb, 2016 Pain with urination R30.9 [place] [address] 51644- 4656 03 Feb, 2016 Other seasonal allergic rhinitis J30.2 [place] [address] 52769- 6552 29 Nov, 2015 Cough R05 and Viral syndrome B34.9 [place] [address] 01488- 2839 22 Nov, 2015 Oral contraceptive pill surveillance Z30.41 and Left ovarian cyst N83.20 [place] [address] 92181- 2198 16 Nov, 2015 Ovarian cyst N83.20 and Otitis media of both ears H66.93 [place] [address] 88788- 1788 07 Nov, 2015 Sore throat J02.9 and Streptococcal pharyngitis J02.0 [place] [address] 14697- 0379 17 Oct, 2015 Ovarian cyst N83.20 ; Hematuria R31.9 ; Urinary crystals R82.99 ; Left sided abdominal pain R10.9 and Allergic rhinitis J30.9 [place] [address] [place] [id number] [place] [address] 23294- 7190 14 Oct, 2015 [place] [address] [place] [id number] [place] [address] 92425- 6903 11 Oct, 2015 Left lower quadrant pain R10.32 ; Dysuria R30.0 ; History of constipation Z87.19 ; Routine screening for STI (sexually transmitted infection) Z11.3 ; CVA tenderness M54.9 ; Lower abdominal tenderness R10.819 ; Vaginal itching L29.8 and Family history of endometriosis Z84.2 [place] [address] 44856- 8538 01 Oct, 2015 Asthma attack 493.92 ; UTI symptoms R39.9 and Sinusitis 473.9 [facility] [address] [id number] Aug, Dental examination Z01.20 [place] [address] 45810- 9689 Jul, Scabies B86 [place] [address] 44698- 3307 Jun, Otitis externa of both ears H60.93 [place] [address] 88135- 7285 May, Asthma attack 493.92 [place] [address] 61355- 9697 Apr, Otitis externa of both ears 380.10 [place] [address] 39610- 5332 Apr, Insect bite 919.4 [place] [address] 73697- 8802 Apr, Infective otitis externa 380.10 [place] [address] 40503- 0136 Mar, Acute sinusitis 461.9 [place] [address] 72558- 5523 Mar, Acute pharyngitis 462 [facility] [address] [address] Feb, Otitis media of both ears 382.9 [facility] [address] Feb, Dysuria 788.1 and Urinary tract infection 599.0 [facility] [address] [place] [address] 51901- 8728 Feb, Dysuria 788.1 [facility] [address] [place] [id number] [place] [address] 15941- 9447 January, Sinusitis 473.9 [facility] [address] [place] [id number] [place] [address] 90418- 1539 Dec, [facility] [address] [address]- 7[address] Dec, [facility] [address] [place] [address] 13428- 1771 Nov, [facility] [address] [address]- 4452 Nov, [facility] [address] [address] 2288 Oct, [facility] [address] [address]- 5621 Oct, [facility] [address] [address]- 2161 Oct, [facility] [address] [address]- 3312 Oct, [facility] [address]66 Oct, [facility] [address] Oct, [facility] [address] [place] [id number] [address]- 7176 Aug, [facility] [address] [facility] [id number] [address]- [address] Aug, [facility] [address] [facility] [id number] [address] 0[address] Aug, [facility] [address] [facility] [id number] [address] Aug, IMMUNIZATIONS Vaccine Route Administration Date Status ROCEPHIN 1 GM (IM) IM Intramuscular February 06, 2018 Administered ZOFRAN (IM) 2 MG/ML (PER 1 MG) 40 MG/20 ML IM Intramuscular February 06, 2018 Administered SOCIAL HISTORY Never Assessed REASON FOR VISIT UTI symptoms--tcuppettRN, Dysuria, lower back pain x 1.5 weeks. Pt had to leave work today due to pain PLAN OF CARE Activity Details Follow Up prn Reason: VITAL SIGNS Height 59 in 2018-02-06 Weight 85.8 lbs 2018-02-06 Temperature 98.4 degrees Fahrenheit 2018-02-06 Heart Rate 80 bpm 2018-02-06 Respiratory Rate 16 2018-02-06 BMI 17.33 kg/m2 2018-02-06 Blood pressure systolic 92 mmHg 2018-02-06 Blood pressure diastolic 58 mmHg 2018-02-06 MEDICATIONS Medication Instructions Dosage Frequency Start Date End Date Duration Status Montelukast Sodium 10 MG TAKE ONE TABLET BY MOUTH IN THE EVENING 30 Active AZO Cranberry Active Levaquin 500 mg Orally Once a day 1 tablet 24h January, Feb, 07 days Active MiraLax - Orally twice a day 17 grams 12h Aug, Mar, 30 days Active Symbicort 160-4.5 MCG/ACT Inhalation Twice a day 2 puffs 12h Nov, Active ProAir HFA 108 (90 Base) mcg/act Inhalation every 4 hrs 2 puffs as needed 4h Aug, Active Flonase 50 mcg/act intranasally daily 1 spary each nostril 24h Aug, Active Zyrtec Allergy 10 mg oral daily 1 tablet 24h Active RESULTS No Results PROCEDURES Procedure Date Ordered Result Body Site URINALYSIS, AUTO, W/O SCOPE February 06, 2018 URINE CULTURE/COLONY COUNT February 06, 2018 THER/PROPH/DIAG INJ, SC/IM February 06, 2018 ZOFRAN (IM) 2 MG/ML (PER 1 MG) 40 MG/20 ML February 06, 2018 ROCEPHIN 1 GM (IM) February 06, 2018 INSTRUCTIONS MEDICATIONS ADMINISTERED No Known Medications MEDICAL (GENERAL) HISTORY Type Description Date Medical History asthma Medical History Seasonal allergies Surgical History myringotomy with ventilating tube x 2 Surgical History [place] teeth removal 09/01/2015
--- OUTSIDE RECORDS SUMMARY | 2018-06-09 21:17 | XMS REPORT ---
Author Author LUZMA POLO [facility] [place] [facility] Address [address] [place] [address] Care Team Providers Care Agricultural Lender Name Role Phone LUZMA POLO Unavailable PROBLEMS Type Condition ICD9-CM Code CXZ59-QQ Code Onset Dates Condition Status SNOMED Code Problem Seasonal allergic rhinitis, unspecified allergic rhinitis trigger J30.2 Active 810779800 Problem Ovarian cyst N83.20 Active 14748408 Problem Gastroesophageal reflux disease, esophagitis presence not specified K21.9 Active 176309475 Problem Chronic maxillary sinusitis J32.0 Active 81661790 Problem GERD (gastroesophageal reflux disease) K21.9 Active 118765443 Problem Mild intermittent asthma without complication J45.20 Active 901245953 Problem Exacerbation of asthma, unspecified asthma severity, unspecified whether persistent J45.901 Active 299692124 Problem Slow transit constipation K59.01 Active 85330064 ALLERGIES Substance Reaction Event Type Date Status SulfADIAZINE Unknown Drug Allergy January, Active Penicillin V Potassium Unknown Drug Allergy January, Active ENCOUNTERS Encounter Location Date Diagnosis [facility] [id number] [place] [address] 01340- 9539 Apr, [facility] [id number] [place] [address] 59589- 0763 Apr, [facility] [id number] [place] [address] 60635- 5449 Mar, [facility] [id number] [place] [address] 05750- 7842 Mar, [facility] [id number] [place] [address] 78407- 2922 Mar, Sore throat J02.9 ; Dysuria R30.0 ; Vaginal discharge N89.8 ; Screening for HPV (human papillomavirus) Z11.51 ; Gastroesophageal reflux disease, esophagitis presence not specified K21.9 and Chronic constipation K59.09 [place] [address] [address]- [address] Feb, [place] [address] 71579- 8290 January, Dysuria R30.0 and Pyelonephritis N12 [place] [address] 62775- 1001 January, [place] [address] 86818- 2475 January, Acute recurrent maxillary sinusitis J01.01 [place] [address] 43195- 1846 Dec, [place] [address] 37097- 8096 Dec, Lower abdominal pain R10.30 ; Polyuria R35.8 and Earache symptoms in both ears H92.03 [facility] [facility] [address] [place] [address]32 -8974 Dec, Gastroenteritis K52.9 [facility] [place] [facility] [address] 18[address] -3452 Dec, Dysuria R30.0 ; Yeast infection of the vagina B37.3 and Shaking R25.1 [place] [id number] [place] [address] 13178- 8535 Nov, Exacerbation of asthma, unspecified asthma severity, unspecified whether persistent J45.901 [facility] [place] [facility] [address] [place] [address] 79689 -6448 Nov, Acute frontal sinusitis, recurrence not specified J01.10 ; Post-nasal drainage R09.82 and Chronic asthma without complication, unspecified asthma severity, unspecified whether persistent J45.909 [facility] [facility] [address] [place] [address] 01075 -9480 Sep, Acute cystitis with hematuria N30.01 and Dysuria R30.0 [facility] [address] [id number] Sep, [place] [address] [place] [id number] 8693 Sep, Dysuria R30.0 [facility] [address] [id number] Sep, Dental examination Z01.[address] 80785- 9138 08 Sep, 2017 Encounter for dental examination and cleaning with abnormal findings Z01.21 [facility] [address] [place] [address] 63473 -4968 08 Sep, 2017 Tooth pain K08.[address] 19429- 7703 Sep, Nevoid hyperpigmentation L81.[address] 71073- 0775 Aug, Nevoid hyperpigmentation L81.[address] 94958- 6882 Aug, Sore throat J02.9 ; Bronchitis J40 and Irritated nevus D22.[address] 11112- 7935 Aug, Dysuria R30.0 ; Acute cystitis with hematuria N30.01 ; Vaginal yeast infection B37.3 and Slow transit constipation K59.01 [facility] [address] [place] [address] 80990 -6917 Jul, [facility] [address] [id number] Jun, Dental examination Z01.20 [facility] [address] [place], [place] [phone] Jun, Fluid level behind tympanic membrane of both ears H65.93 [facility] [address] [id number] [phone] Jun, Potential exposure to STD Z20.2 ; Dysuria R30.0 ; Vaginal discharge N89.8 and Candidiasis of female genitalia B37.3 [facility] [address] [id number] Jun, Dental examination Z01.20 [facility] [address] [id number] May, Dental examination Z01.20 [facility] [address] [id number] May, Dental examination Z01.20 [facility] [address] [id number] May, Dental examination Z01.20 [facility] [address] 79655- 6415 Apr, Dysfunction of both eustachian tubes H69.83 [facility] [address] [place] [address] 39910 -6961 Apr, GERD (gastroesophageal reflux disease) K21.9 and Sore throat J02.9 [facility] [id number] [place] [address] [id number] Apr, Dental examination Z01.20 [facility] [id number] [place] [address] 24677- 6338 Apr, Asthma exacerbation J45.901 [facility] [address] [id number] Mar, Dental examination Z01.20 [facility] [id number] [place] [address] [id number] Feb, Dental examination Z01.20 [facility] [address] 83177 -2247 Feb, Middle ear effusion, bilateral H65.93 [facility] [id number] [place] [address] 08221- 1277 Feb, Dysuria R30.0 and Diverticulitis of large intestine without perforation or abscess with bleeding K57.33 [place] [address] 43641- 1514 January, Asthma with acute exacerbation in adult J45.901 [facility] [address] 31103- 1950 January, Dysuria R30.0 ; Vaginal discharge N89.8 and Acute non- recurrent maxillary sinusitis J01.00 [place] [address] 44124- 6381 Dec, [place] [address] 92635- 9996 Dec, Sore throat J02.9 ; Acute mucoid otitis media of left ear H65.112 and Acute non-recurrent maxillary sinusitis J01.00 [place] [address] 72702- 6588 Dec, Bronchitis J40 [facility] [address] 09560 -6087 Dec, Shortness of breath R06.02 and Mild intermittent asthma without complication J45.20 [facility] [id number] [place] [address] 21917- 2234 Nov, Asthma exacerbation J45.901 and Bronchitis J40 [facility] [address] 12265- 2706 Oct, Acute mucoid otitis media of both ears H65.113 and Acute non -recurrent maxillary sinusitis J01.00 [facility] [address] [id number] 03 Oct, 2016 Dental examination Z01.20 [facility] [address] 11470- 5582 10 Sep, 2016 Exposure to influenza Z20.828 and Upper respiratory tract infection, unspecified type J06.9 [facility] [place] [address] 56213 -6774 27 Aug, 2016 Acute exacerbation of asthma with allergic rhinitis J45.901 [facility] [place] [address] 44260 -7368 15 Aug, 2016 Burning with urination R30.0 and Hematuria R31.9 [place] [address] 68122- 5106 08 Aug, 2016 Seasonal allergic rhinitis, unspecified allergic rhinitis trigger J30.2 and Dermatitis L30.9 [place] [address] 16524- 7594 17 Jul, 2016 Follow up Z09 [place] [address] 72109- 7799 15 Jul, 2016 [place] [address] 44237- 8566 10 Jul, 2016 Dysuria R30.0 ; Acute vaginitis N76.0 and PID (acute pelvic inflammatory disease) N73.0 [place] [id number] [place] [address] 09510- 3347 02 Jul, 2016 Sore throat J02.9 [facility] [place] [address] 54385 -3808 16 Jun, 2016 Acute otitis externa of both ears, unspecified type H60.503 [facility] [address] 03777 -1851 29 May, 2016 Sore throat J02.9 and Pharyngitis, unspecified etiology J02.9 [facility] [place] [id number] [place] [address] 93179 -7775 Apr, Dysuria R30.0 [facility] [place] [id number] [place] [address] 77931 -6015 18 Mar, 2016 Viral infection B34.9 [facility] [place] [address] 41380 -1899 07 Mar, 2016 Dermatitis L30.9 [place] [address] 45908- 8023 27 Feb, 2016 Annual physical exam Z00.00 and Screen for STD (sexually transmitted disease) Z11.3 [facility] [place] [address] 32243 -8921 13 Feb, 2016 Pain with urination R30.9 [place] [address] 33873- 6915 03 Feb, 2016 Other seasonal allergic rhinitis J30.2 [place] [address] 67243- 2682 29 Nov, 2015 Cough R05 and Viral syndrome B34.9 [place] [address] 56931- 0860 22 Nov, 2015 Oral contraceptive pill surveillance Z30.41 and Left ovarian cyst N83.20 [place] [address] 67013- 1048 16 Nov, 2015 Ovarian cyst N83.20 and Otitis media of both ears H66.93 [place] [address] 16260- 9619 07 Nov, 2015 Sore throat J02.9 and Streptococcal pharyngitis J02.0 [place] [address] 91164- 7366 17 Oct, 2015 Ovarian cyst N83.20 ; Hematuria R31.9 ; Urinary crystals R82.99 ; Left sided abdominal pain R10.9 and Allergic rhinitis J30.9 [place] [address] 63853- 8506 14 Oct, 2015 [place] [address] [id number] [place] [address] 88263- 5201 11 Oct, 2016 Left lower quadrant pain R10.32 ; Dysuria R30.0 ; History of constipation Z87.19 ; Routine screening for STI (sexually transmitted infection) Z11.3 ; CVA tenderness M54.9 ; Lower abdominal tenderness R10.819 ; Vaginal itching L29.8 and Family history of endometriosis Z84.2 [place] [address] 79847- 7858 01 Oct, 2015 Asthma attack 493.92 ; UTI symptoms R39.9 and Sinusitis 473.9 [facility] [address] [id number] Aug, Dental examination Z01.20 [place] [address] 78049- 7860 Jul, Scabies B86 [place] [address] 31786- 2651 Jun, Otitis externa of both ears H60.93 [place] [address] 00277- 4410 May, Asthma attack 493.92 [place] [address] 23943- 4791 Apr, Otitis externa of both ears 380.10 [place] [address] 56014- 4677 Apr, Insect bite 919.4 [place] [address] 04829- 5949 Apr, Infective otitis externa 380.10 [place] [address] 07938- 1977 Mar, Acute sinusitis 461.9 [place] [address] 23992- 3503 Mar, Acute pharyngitis [address] [place] [id number] [address]- 0769 Feb, Otitis media of both ears 382.9 [facility] [address] [place] [address] 44794- 4496 Feb, Dysuria 788.1 and Urinary tract infection 599.0 [facility] [address] [place] [address] 47839- 5096 Feb, Dysuria 788.1 [facility] [id number] [address]- [address]17 January, Sinusitis 473.9 [facility] [id number] [place] [address] 601511- 6975 Dec, [facility] [id number] [address]- 3[address] Dec, [facility] [id number] [address]- 8527 Nov, [facility] [id number] [place] [address]- 5481 Nov, [facility] [id number] [place] [address]- 1440 Oct, [facility] [id number] [address]- 0170 Oct, [facility] [id number] [address]- 5905 Oct, [facility] [id number] [address]- 3476 Oct, [facility] [id number] [place] [address]- 7786 Oct, [facility] [id number] [address]- 3926 Oct, [facility] [id number] [place] [address] [place] [address]- 9203 Aug, [facility] [address] [facility] [id number] [place] [address]- 0406 Aug, [facility] [address] [facility] [id number] [place] [address]- 1009 Aug, [facility] [address] [facility] [id number] [place] [address]- 0946 Aug, IMMUNIZATIONS No Known Immunizations SOCIAL HISTORY Never Assessed REASON FOR VISIT Congestion, nasal pressure x since last sunday -- mechelle padilla PLAN OF CARE Activity Details Follow Up 2 Weeks, prn Reason:if symptoms worsening or not improving VITAL SIGNS Height 59 in 2018-01-23 Weight 86.5 lbs 2018-01-23 Temperature 98.1 degrees Fahrenheit 2018-01-23 BMI 17.47 kg/m2 2018-01-23 Blood pressure systolic 100 mmHg 2018-01-23 Blood pressure diastolic 66 mmHg 2018-01-23 MEDICATIONS Medication Instructions Dosage Frequency Start Date End Date Duration Status MiraLax - Orally twice a day 17 grams 12h Aug, Mar, 30 days Active Symbicort 160-4.5 MCG/ACT Inhalation Twice a day 2 puffs 12h Nov, Active Zyrtec Allergy 10 mg oral daily 1 tablet 24h Active Doxycycline Hyclate 100 mg Orally twice a day 1 tablet 12h January, January, 07 days Active Flonase 50 mcg/act intranasally daily 1 spary each nostril 24h Aug, Active ProAir HFA 108 (90 Base) mcg/act Inhalation every 4 hrs 2 puffs as needed 4h Aug, Active RESULTS No Results PROCEDURES No Known procedures INSTRUCTIONS MEDICATIONS ADMINISTERED No Known Medications MEDICAL (GENERAL) HISTORY Type Description Date Medical History asthma Medical History Seasonal allergies Surgical History myringotomy with ventilating tube x 2 Surgical History [place] teeth removal 09/01/2015
--- OUTSIDE RECORDS SUMMARY | 2018-06-09 21:18 | XMS REPORT ---
Author Author SIMBA Donato Organization [facility] Address [address] [address] Care Team Providers Care Stock Associate Name Role Phone SIMBA Donato Unavailable PROBLEMS Type Condition ICD9-CM Code HND64-VJ Code Onset Dates Condition Status SNOMED Code Problem Seasonal allergic rhinitis, unspecified allergic rhinitis trigger J30.2 Active 747989988 Problem Ovarian cyst N83.20 Active 96705665 Problem Gastroesophageal reflux disease, esophagitis presence not specified K21.9 Active 467429292 Problem Chronic maxillary sinusitis J32.0 Active 51946927 Problem GERD (gastroesophageal reflux disease) K21.9 Active 494912533 Problem Mild intermittent asthma without complication J45.20 Active 783312910 Problem Exacerbation of asthma, unspecified asthma severity, unspecified whether persistent J45.901 Active 295359786 Problem Slow transit constipation K59.01 Active 74763106 ALLERGIES Substance Reaction Event Type Date Status SulfADIAZINE Unknown Drug Allergy Dec, Active Penicillin V Potassium Unknown Drug Allergy Dec, Active ENCOUNTERS Encounter Location Date Diagnosis [facility], [place] [id number] [place] [address]63- 8099 Mar, [facility] [place] [id number] [place] [address] 44576- 1646 Mar, [facility] [place] [address] [place] [address] 50012- 9512 Mar, Sore throat J02.9 ; Dysuria R30.0 ; Vaginal discharge N89.8 ; Screening for HPV (human papillomavirus) Z11.51 ; Gastroesophageal reflux disease, esophagitis presence not specified K21.9 and Chronic constipation K59.09 [facility] [place] [address] [place] [address] 05050- 4118 Feb, [place] [id number] [place] [id number] [place] [address] 86045- 2473 January, Dysuria R30.0 and Pyelonephritis N12 [place] [address] [address]89- 4709 January, [place] [address] 36020- 3365 January, Acute recurrent maxillary sinusitis J01.01 [place] [address] [address]66- 9357 Dec, [place] [address] 57617- 1414 Dec, Lower abdominal pain R10.30 ; Polyuria R35.8 and Earache symptoms in both ears H92.03 [facility] [address] [place] [address]35 -6487 Dec, Gastroenteritis K52.9 [facility] [address] [address] Dec, Dysuria R30.0 ; Yeast infection of the vagina B37.3 and Shaking R25.1 [place] [address] [place] [id number] [place] [address] 46347- 5468 Nov, Exacerbation of asthma, unspecified asthma severity, unspecified whether persistent J45.901 [facility] [address] [place] [id number] [place] [address]10 -7741 Nov, Acute frontal sinusitis, recurrence not specified J01.10 ; Post-nasal drainage R09.82 and Chronic asthma without complication, unspecified asthma severity, unspecified whether persistent J45.909 [facility] [address] [place] [address]99 -7276 Sep, Acute cystitis with hematuria N30.01 and Dysuria R30.0 [facility] [address] [id number] Sep, [place] [address] [place] [id number] [place] [address] 70419- 0422 Sep, Dysuria R30.0 [facility] [address] [place] [id number] [place] [address] [id number] Sep, Dental examination Z01.[address] 8[address]- 0107 08 Sep, 2017 Encounter for dental examination and cleaning with abnormal findings Z01.21 [facility] [address] [address] 08 Sep, 2017 Tooth pain K08.[address] 45586- 8165 03 Sep, 2017 Nevoid hyperpigmentation L81.[address] 06113- 5415 Aug, Nevoid hyperpigmentation L81.[address] 98656- 7737 Aug, Sore throat J02.9 ; Bronchitis J40 and Irritated nevus D22.9 [place] [id number] [place] [address] 16941- 3571 Aug, Dysuria R30.0 ; Acute cystitis with hematuria N30.01 ; Vaginal yeast infection B37.3 and Slow transit constipation K59.01 [facility] [place] [address] [place] [id number] [place] [address] 18808 -7955 Jul, [facility] [address] [place] [address] [phone] Jun, Dental examination Z01.20 [facility] [place] [address] [place] [id number] [place] [address] 28213 -0614 Jun, Fluid level behind tympanic membrane of both ears H65.93 [facility] [address] 71150 -7965 Jun, Potential exposure to STD Z20.2 ; Dysuria R30.0 ; Vaginal discharge N89.8 and Candidiasis of female genitalia B37.3 [facility] [address] [id number] Jun, Dental examination Z01.20 [facility] [address] [id number] May, Dental examination Z01.20 [facility] [address] [id number] May, Dental examination Z01.20 [facility] [address] [id number] May, Dental examination Z01.20 [facility] [place] [address] 713177- 3230 Apr, Dysfunction of both eustachian tubes H69.83 [facility] [address] [id number] -2431 Apr, GERD (gastroesophageal reflux disease) K21.9 and Sore throat J02.9 [facility] [address] [id number] Apr, Dental examination Z01.20 [facility] [place] [address] [id number]- 3375 Apr, Asthma exacerbation J45.901 [facility] [address] [id number] Mar, Dental examination Z01.20 [facility] [address] [place] [id number] [place] [address] [id number] Feb, Dental examination Z01.20 [facility] [address] [phone] -8551 Feb, Middle ear effusion, bilateral H65.93 [facility] [place] [address] 65715- 3923 Feb, Dysuria R30.0 and Diverticulitis of large intestine without perforation or abscess with bleeding K57.33 [place] [address] 00791- 5941 January, Asthma with acute exacerbation in adult J45.901 [place] [address] 47788- 8667 January, Dysuria R30.0 ; Vaginal discharge N89.8 and Acute non- recurrent maxillary sinusitis J01.00 [place] [address] [place] [id number] [place] [address] 80751- 2300 Dec, [place] [address] 10662- 2009 Dec, Sore throat J02.9 ; Acute mucoid otitis media of left ear H65.112 and Acute non-recurrent maxillary sinusitis J01.00 [place] [address] 73797- 2693 Dec, Bronchitis J40 [facility] [place] [address] 37139 -5073 Dec, Shortness of breath R06.02 and Mild intermittent asthma without complication J45.20 [place] [address] 78217- 3264 Nov, Asthma exacerbation J45.901 and Bronchitis J40 [place] [address] 84623- 6788 Oct, Acute mucoid otitis media of both ears H65.113 and Acute non -recurrent maxillary sinusitis J01.00 [facility] [address] [id number] 03 Oct, 2016 Dental examination Z01.20 [place] [address] [place] [id number] [place] [address] 37004- 2379 Sep, Exposure to influenza Z20.828 and Upper respiratory tract infection, unspecified type J06.9 [facility] [address] [place] [id number] [place] [address] 93458 -3839 27 Aug, 2016 Acute exacerbation of asthma with allergic rhinitis J45.901 [facility] [place] [address] 12571 -9798 15 Aug, 2016 Burning with urination R30.0 and Hematuria R31.9 [place] [address] 46242- 0458 08 Aug, 2016 Seasonal allergic rhinitis, unspecified allergic rhinitis trigger J30.2 and Dermatitis L30.9 [place] [address] 81997- 0027 17 Jul, 2016 Follow up Z09 [place] [address] 29060- 6189 15 Jul, 2016 [place] [address] 76244- 0622 10 Jul, 2016 Dysuria R30.0 ; Acute vaginitis N76.0 and PID (acute pelvic inflammatory disease) N73.0 [place] [address] 89914- 0227 02 Jul, 2016 Sore throat J02.9 [facility] [address] 73813 -4150 16 Jun, 2016 Acute otitis externa of both ears, unspecified type H60.503 [facility] [address] [place] [address] 44490 -4316 May, Sore throat J02.9 and Pharyngitis, unspecified etiology J02.9 [facility] [address] 05462 -9078 Apr, Dysuria R30.0 [facility] [address] 77575 -2731 Mar, Viral infection B34.9 [facility] [address] [place] [address] 07 Mar, 2016 Dermatitis L30.9 [place] [address] 95455- 6295 27 Feb, 2016 Annual physical exam Z00.00 and Screen for STD (sexually transmitted disease) Z11.3 [facility] [address] 95902 -0674 13 Feb, 2016 Pain with urination R30.9 [place] [address] 75385- 0648 03 Feb, 2016 Other seasonal allergic rhinitis J30.[address] 31390- 6079 29 Nov, 2015 Cough R05 and Viral syndrome B34.[address] 73761- 0331 22 Nov, 2015 Oral contraceptive pill surveillance Z30.41 and Left ovarian cyst N83.20 [place] [address] 64732- 8537 16 Nov, 2015 Ovarian cyst N83.20 and Otitis media of both ears H66.93 [place] [id number] [place] [address] 08698- 0091 07 Nov, 2015 Sore throat J02.9 and Streptococcal pharyngitis J02.0 [place] [address] 60086- 4844 17 Oct, 2015 Ovarian cyst N83.20 ; Hematuria R31.9 ; Urinary crystals R82.99 ; Left sided abdominal pain R10.9 and Allergic rhinitis J30.9 [place] [address] 92531- 2845 14 Oct, 2015 [place] [address] 18741- 2840 11 Oct, 2015 Left lower quadrant pain R10.32 ; Dysuria R30.0 ; History of constipation Z87.19 ; Routine screening for STI (sexually transmitted infection) Z11.3 ; CVA tenderness M54.9 ; Lower abdominal tenderness R10.819 ; Vaginal itching L29.8 and Family history of endometriosis Z84.2 [place] [address] [place] [id number] [place] [address] 08655- 7671 Oct, Asthma attack 493.92 ; UTI symptoms R39.9 and Sinusitis 473.9 [facility] [address] [id number] Aug, Dental examination Z01.20 [place] [address] 70133- 5883 Jul, Scabies B86 [place] [address] 47945- 2077 Jun, Otitis externa of both ears H60.[address] 47226- 9150 May, Asthma attack 493.92 [place] [address] 09989- 0907 Apr, Otitis externa of both ears 380.10 [place] [address] 66232- 3339 Apr, Insect bite 919.[address] 51937- 2753 Apr, Infective otitis externa 380.10 [place] [address] 14494- 0117 Mar, Acute sinusitis 461.9 [place] [address] 68445- 0722 Mar, Acute pharyngitis 462 [place] [address] 46705- 3908 Feb, Otitis media of both ears 382.9 [place] [address] [place] [address]- 6573 Feb, Dysuria 788.1 and Urinary tract infection 599.0 [facility] [address] [place] [id number] [place] [address] 089376- 7103 Feb, Dysuria 788.1 [facility] [address] [address]- [address] January, Sinusitis 473.9 [facility] [address] [place] [address] 617888- 1462 Dec, [facility] [address] [place] [address], [place] 9698 Dec, [facility] [address] [address]- [address]67 Nov, [facility] [address] [place] [address] 587878- 8457 Nov, [facility] [address] [address]- 6206 Oct, [facility] [address] [address]- 7500 Oct, [facility] [address] [address]- 9502 Oct, [facility] [address] 8240 Oct, [facility] [address] 4412 Oct, [facility] [address] [address]- 7067 Oct, [facility] [address] [address]- 1451 Aug, [facility] [address] [address]- 4616 Aug, [facility] [place] [address] [facility] [id number] [place] [address]- 2018 Aug, [facility] [place] [address] [facility] [id number] [address] Aug, IMMUNIZATIONS No Known Immunizations SOCIAL HISTORY Never Assessed REASON FOR VISIT UTI symptoms, polyuria, lower abdnominal pain-AHarrymanRN, Both ears are bothering her PLAN OF CARE Activity Details Follow Up prn Reason: VITAL SIGNS Height 59 in 2017-12-27 Weight 89.9 lbs 2017-12-27 Temperature 98.9 degrees Fahrenheit 2017-12-27 Heart Rate 78 bpm 2017-12-27 Respiratory Rate 18 2017-12-27 BMI 18.16 kg/m2 2017-12-27 Blood pressure systolic 110 mmHg 2017-12-27 Blood pressure diastolic 64 mmHg 2017-12-27 MEDICATIONS Medication Instructions Dosage Frequency Start Date End Date Duration Status Flonase 50 mcg/act intranasally daily 1 spary each nostril 24h Aug, Active Singulair 10 MG Orally Once a day 1 tablet in the evening 24h January, Active ProAir HFA 108 (90 Base) mcg/act Inhalation every 4 hrs 2 puffs as needed 4h Aug, Active Azo Tabs 95 MG Orally Three times a day 2 tablets after meals 8h Active Zyrtec Allergy 10 mg oral daily 1 tablet 24h Active MiraLax - Orally twice a day 17 grams 12h 06 Aug, 2017 Mar, 30 days Active Symbicort 160-4.5 MCG/ACT Inhalation Twice a day 2 puffs 12h 13 Nov, 2017 Active Azithromycin 250 MG Orally Once a day 2 tablets on the first day, then 1 tablet daily for 4 days 24h Dec, Dec, 5 day(s) Active RESULTS No Results PROCEDURES Procedure Date Ordered Result Body Site URINALYSIS, AUTO, W/O SCOPE December 27, 2017 URINE TEST December 27, 2017 URINE CULTURE/COLONY COUNT December 27, 2017 No Charge December 27, 2017 INSTRUCTIONS MEDICATIONS ADMINISTERED No Known Medications MEDICAL (GENERAL) HISTORY Type Description Date Medical History asthma Medical History Seasonal allergies Surgical History myringotomy with ventilating tube x 2 Surgical History [place] teeth removal 09/01/2015
--- OUTSIDE RECORDS SUMMARY | 2018-06-09 21:18 | XMS REPORT ---
Author Author LUZMA POLO [facility] Address [address] [place] [address] Care Team Providers Care Towel Inspector Name Role Phone LUZMA POLO Unavailable PROBLEMS Type Condition ICD9-CM Code INN33-AM Code Onset Dates Condition Status SNOMED Code Problem Seasonal allergic rhinitis, unspecified allergic rhinitis trigger J30.2 Active 662607903 Problem Ovarian cyst N83.20 Active 22659759 Problem Gastroesophageal reflux disease, esophagitis presence not specified K21.9 Active 285987427 Problem Chronic maxillary sinusitis J32.0 Active 78456075 Problem GERD (gastroesophageal reflux disease) K21.9 Active 747519270 Problem Mild intermittent asthma without complication J45.20 Active 911931532 Problem Exacerbation of asthma, unspecified asthma severity, unspecified whether persistent J45.901 Active 688870312 Problem Slow transit constipation K59.01 Active 04535001 ALLERGIES No Information ENCOUNTERS Encounter Location Date Diagnosis [place] [address] [address] Apr, [place] [address] [address] 3484 Apr, [place] [address] [address] 2840 Mar, [place] [address] 78398- 4442 Mar, [place] [address] 5[address] 5398 Mar, Sore throat J02.9 ; Dysuria R30.0 ; Vaginal discharge N89.8 ; Screening for HPV (human papillomavirus) Z11.51 ; Gastroesophageal reflux disease, esophagitis presence not specified K21.9 and Chronic constipation K59.09 [facility] [address] [place] [id number] [place] [address] 66656- 5676 Feb, [facility] [address] [address]- [address] January, Dysuria R30.0 and Pyelonephritis N12 [facility] [address] [address]- 47[address] January, [place] [address] 98472- 0044 January, Acute recurrent maxillary sinusitis J01.01 [place] [address] 13860- 5346 Dec, [place] [address] 01527- 1712 Dec, Lower abdominal pain R10.30 ; Polyuria R35.8 and Earache symptoms in both ears H92.03 [facility] [address] [place] [id number] [place] [address]0410 Dec, Gastroenteritis K52.9 [facility] [address] [place] [address]50 -2851 Dec, Dysuria R30.0 ; Yeast infection of the vagina B37.3 and Shaking R25.1 [place] [address] [place] [id number] [place] [address] 68933- 1345 Nov, Exacerbation of asthma, unspecified asthma severity, unspecified whether persistent J45.901 [facility] [address] [place] [id number] [place] [address] 09646 -1777 Nov, Acute frontal sinusitis, recurrence not specified J01.10 ; Post-nasal drainage R09.82 and Chronic asthma without complication, unspecified asthma severity, unspecified whether persistent J45.909 [facility] [address] [place] [id number] [place] [address] 66526 -5706 Sep, Acute cystitis with hematuria N30.01 and Dysuria R30.0 [place] [id number] [place] [address] [id number] Sep, [place] [address] 34197- 2695 Sep, Dysuria R30.0 [facility] [address] [place] [id number] [place] [address] [id number] Sep, Dental examination Z01.20 [place] [address] 70420- 0782 08 Sep, 2017 Encounter for dental examination and cleaning with abnormal findings Z01.21 [facility] [address] 18[address] -8851 Sep, Tooth pain K08.89 [place] [address] 06483- 2078 Sep, Nevoid hyperpigmentation L81.9 [place] [address] 06071- 2480 Aug, Nevoid hyperpigmentation L81.9 [place] [address] 98085- 2191 Aug, Sore throat J02.9 ; Bronchitis J40 and Irritated nevus D22.9 [place] [address] 29803- 6362 Aug, Dysuria R30.0 ; Acute cystitis with hematuria N30.01 ; Vaginal yeast infection B37.3 and Slow transit constipation K59.01 [facility] [address] [place] [id number] [place] [address]288 [address]1243 Jul, [facility] [address] [place] [id number] [place] [address] [id number] Jun, Dental examination Z01.20 [facility] [address] [place] [id number] [place] [address] 46661 -3762 Jun, Fluid level behind tympanic membrane of both ears H65.93 [facility] [address] [place] [id number] [place] [address] [id number] Jun, Potential exposure to STD Z20.2 ; Dysuria R30.0 ; Vaginal discharge N89.8 and Candidiasis of female genitalia B37.3 [facility] [address] [place] [id number] [place] [address] [id number] Jun, Dental examination Z01.20 [facility] [address] [id number] May, Dental examination Z01.20 [facility] [address] [id number] May, Dental examination Z01.20 [facility] [address] [id number] May, Dental examination Z01.20 [facility] [address] [id number]- 2884 Apr, Dysfunction of both eustachian tubes H69.83 [facility] [address] 37410 [address]0311 15 Apr, 2017 GERD (gastroesophageal reflux disease) K21.9 and Sore throat J02.9 [facility] [address] [place] [id number] [place] [address] [id number] Apr, Dental examination Z01.20 [facility] [address] [place] [id number] [place] [address] 21071- 9540 Apr, Asthma exacerbation J45.901 [facility] [address] [place] [id number] [place] [address] [id number] Mar, Dental examination Z01.20 [facility] [address] [id number] Feb, Dental examination Z01.20 [facility] [address] [place] [id number] [place] [address] [phone] Feb, Middle ear effusion, bilateral H65.93 [facility] [address] [place] [id number] [place] [address] 53197- 0802 Feb, Dysuria R30.0 and Diverticulitis of large intestine without perforation or abscess with bleeding K57.33 [place] [address] 67223- 7567 January, Asthma with acute exacerbation in adult J45.901 [place] [address] 74968- 9570 January, Dysuria R30.0 ; Vaginal discharge N89.8 and Acute non- recurrent maxillary sinusitis J01.00 [place] [address] 66471- 8523 Dec, [place] [address] 70614- 0985 Dec, Sore throat J02.9 ; Acute mucoid otitis media of left ear H65.112 and Acute non-recurrent maxillary sinusitis J01.00 [place] [address] 35526- 6279 Dec, Bronchitis J40 [facility] [address] 09979 -3386 Dec, Shortness of breath R06.02 and Mild intermittent asthma without complication J45.20 [place] [address] 79229- 9251 Nov, Asthma exacerbation J45.901 and Bronchitis J40 [place] [address] 43782- 5063 Oct, Acute mucoid otitis media of both ears H65.113 and Acute non -recurrent maxillary sinusitis J01.00 [facility] [address] [id number] Oct, Dental examination Z01.20 [facility] [address] 38821- 5410 Sep, Exposure to influenza Z20.828 and Upper respiratory tract infection, unspecified type J06.9 [facility] [place] [address] [place] [id number] [place] [address] 89772 -3943 Aug, Acute exacerbation of asthma with allergic rhinitis J45.901 [facility] [place] [address] 12263 -4523 15 Aug, 2016 Burning with urination R30.0 and Hematuria R31.9 [place] [address] 43853- 9515 08 Aug, 2016 Seasonal allergic rhinitis, unspecified allergic rhinitis trigger J30.2 and Dermatitis L30.[address] 67246- 9833 17 Jul, 2016 Follow up Z09 [address] 92931- 1132 Jul, [place] [address] 47260- 6469 Jul, Dysuria R30.0 ; Acute vaginitis N76.0 and PID (acute pelvic inflammatory disease) N73.0 [place] [address] 83711- 2951 02 Jul, 2016 Sore throat J02.9 [facility] [address] 33485 [address]207 Jun, Acute otitis externa of both ears, unspecified type H60.503 [facility] [address] 74222 -2342 29 May, 2016 Sore throat J02.9 and Pharyngitis, unspecified etiology J02.9 [facility] [place] [address] 48437 -7267 Apr, Dysuria R30.0 [facility] [place] [address] 71328 -1258 Mar, Viral infection B34.9 [facility] [address] [place] [id number] [place] [address] 64572 -6264 07 Mar, 2016 Dermatitis L30.9 [place] [address] 36923- 1302 27 Feb, 2016 Annual physical exam Z00.00 and Screen for STD (sexually transmitted disease) Z11.3 [facility] [place] [address] 12125 -4272 13 Feb, 2016 Pain with urination R30.9 [place] [address] 99664- 5459 03 Feb, 2016 Other seasonal allergic rhinitis J30.2 [place] [address] 39625- 9332 29 Nov, 2015 Cough R05 and Viral syndrome B34.[address] 46383- 8005 22 Nov, 2015 Oral contraceptive pill surveillance Z30.41 and Left ovarian cyst N83.20 [place] [address] 87544- 7221 16 Nov, 2015 Ovarian cyst N83.20 and Otitis media of both ears H66.93 [place] [address] 72688- 6892 07 Nov, 2015 Sore throat J02.9 and Streptococcal pharyngitis J02.0 [place] [address] 92364- 7605 17 Oct, 2015 Ovarian cyst N83.20 ; Hematuria R31.9 ; Urinary crystals R82.99 ; Left sided abdominal pain R10.9 and Allergic rhinitis J30.9 [place] [address] [place] [id number] [place] [address] 72362- 8918 14 Oct, 2015 [place] [address] 74071- 5091 11 Feb, 2016 Left lower quadrant pain R10.32 ; Dysuria R30.0 ; History of constipation Z87.19 ; Routine screening for STI (sexually transmitted infection) Z11.3 ; CVA tenderness M54.9 ; Lower abdominal tenderness R10.819 ; Vaginal itching L29.8 and Family history of endometriosis Z84.2 [place] [address] [place] [id number] [place] [address] 79421- 3223 Oct, Asthma attack 493.92 ; UTI symptoms R39.9 and Sinusitis 473.9 [facility] [address] [place] [id number] [place] [address] [id number] Aug, Dental examination Z01.20 [place] [address] 09330- 3986 Jul, Scabies B86 [address] 13017- 2039 Jun, Otitis externa of both ears H60.93 [place] [address] 24872- 0559 May, Asthma attack 493.92 [place] [address] 38573- 5071 Apr, Otitis externa of both ears 380.10 [place] [address] [place] [id number] [place] [address] 28622- 8416 Apr, Insect bite 919.4 [place] [address] 28256- 6499 Apr, Infective otitis externa 380.10 [place] [address] [place] [id number] [place] [address] 71138- 0281 Mar, Acute sinusitis 461.9 [place] [address] 91775- 1017 Mar, Acute pharyngitis 462 [place] [address] 89226- 9053 Feb, Otitis media of both ears 382.9 [facility] [address] [address] Feb, Dysuria 788.1 and Urinary tract infection 599.0 [facility] [id number] [address]- 9076 Feb, Dysuria 788.1 [facility] [id number]- 35[address] January, Sinusitis 473.9 [facility] [id number] Dec, [facility] [id number] Dec, [facility] [id number] Nov, [facility] [id number] 27[address] Nov, [facility] [id number] Oct, [facility] [id number]- 8[address] Oct, [facility] [id number] [place] [address]- 2076 Oct, [facility] [id number] [place] [address]- 6546 Oct, [facility] [address] [place] [id number] [address]- 7986 Oct, [facility] [id number] [place] [address]- 3596 Oct, [facility] [address] [place] [id number] [address]- [address]606 Aug, [facility] [id number] [place] [address]- 8206 Aug, [facility] [address] [facility] [id number] [place] [address]- [address]61 Aug, [facility] [address] [facility] [id number] [place] [address]- [address]23 Aug, IMMUNIZATIONS No Known Immunizations SOCIAL HISTORY Never Assessed REASON FOR VISIT Requesting steroids PLAN OF CARE VITAL SIGNS MEDICATIONS Medication Instructions Dosage Frequency Start Date End Date Duration Status PredniSONE 20 mg Orally Once a day 2 tablets 24h January, January, 05 days Active RESULTS No Results PROCEDURES No Known procedures INSTRUCTIONS MEDICATIONS ADMINISTERED No Known Medications MEDICAL (GENERAL) HISTORY Type Description Date Medical History asthma Medical History Seasonal allergies Surgical History myringotomy with ventilating tube x 2 Surgical History [place] teeth removal 09/01/2015
--- OUTSIDE RECORDS SUMMARY | 2018-06-09 21:18 | XMS REPORT ---
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 Name Role Phone SIMBA Donato Unavailable PROBLEMS Type Condition ICD9-CM Code MME48-PU Code Onset Dates Condition Status SNOMED Code Problem Seasonal allergic rhinitis, unspecified allergic rhinitis trigger J30.2 Active 002515063 Problem Ovarian cyst N83.20 Active 03924502 Problem Gastroesophageal reflux disease, esophagitis presence not specified K21.9 Active 312532929 Problem Chronic maxillary sinusitis J32.0 Active 95745872 Problem GERD (gastroesophageal reflux disease) K21.9 Active 309831012 Problem Mild intermittent asthma without complication J45.20 Active 322431398 Problem Exacerbation of asthma, unspecified asthma severity, unspecified whether persistent J45.901 Active 419045034 Problem Slow transit constipation K59.01 Active 33779665 ALLERGIES No Information ENCOUNTERS Encounter Location Date Diagnosis [place] [id number] [place] [address]29[address] 8497 Mar, [facility] [id number] [place] [address]47- 1890 Mar, [facility] [id number] [place] [address] 19718- 0364 Mar, Sore throat J02.9 ; Dysuria R30.0 ; Vaginal discharge N89.8 ; Screening for HPV (human papillomavirus) Z11.51 ; Gastroesophageal reflux disease, esophagitis presence not specified K21.9 and Chronic constipation K59.09 [facility] [id number] [place] [address]83- 1924 Feb, [facility] [address] [address] January, Dysuria R30.0 and Pyelonephritis N12 [facility] [id number] [place] [address] 85253- 4386 January, [place] [address] [address] January, Acute recurrent maxillary sinusitis J01.01 [place] [address] 39863- 9936 Dec, [place] [address] 79[address]- 5950 Dec, Lower abdominal pain R10.30 ; Polyuria R35.8 and Earache symptoms in both ears H92.03 [facility] [address] [address] Dec, Gastroenteritis K52.9 [facility] [address] [address] Dec, Dysuria R30.0 ; Yeast infection of the vagina B37.3 and Shaking R25.[address] [address] Nov, Exacerbation of asthma, unspecified asthma severity, unspecified whether persistent J45.901 [facility] [place] [id number] [place] [address] Nov, Acute frontal sinusitis, recurrence not specified J01.10 ; Post-nasal drainage R09.82 and Chronic asthma without complication, unspecified asthma severity, unspecified whether persistent J45.909 [facility] [place] [address] [address] Sep, Acute cystitis with hematuria N30.01 and Dysuria R30.0 [facility] [id number] [place] [address] [id number] Sep, [facility] [address] [address] Sep, Dysuria R30.0 [facility] [id number] [place] [address] [id number] Sep, Dental examination Z01.20 [place] [address] [address]- [address] 08 Sep, 2017 Encounter for dental examination and cleaning with abnormal findings Z01.21 [facility] WALK IN [place] [address] 405[address] 08 Sep, 2017 Tooth pain K08.[address] [address]- 4548 Sep, Nevoid hyperpigmentation L81.9 [place] [address] 00100- 4982 Aug, Nevoid hyperpigmentation L81.[address] 90475- 3938 Aug, Sore throat J02.9 ; Bronchitis J40 and Irritated nevus D22.[address] [address]- [address] Aug, Dysuria R30.0 ; Acute cystitis with hematuria N30.01 ; Vaginal yeast infection B37.3 and Slow transit constipation K59.01 [facility] WALK IN [address] [address] Jul, [facility] [id number] [place] [address] [id number] Jun, Dental examination Z01.20 [facility] WALK IN [address] [address] Jun, Fluid level behind tympanic membrane of both ears H65.93 [facility] WALK IN [address] [address] Jun, Potential exposure to STD Z20.2 ; Dysuria R30.0 ; Vaginal discharge N89.8 and Candidiasis of female genitalia B37.3 [facility] [id number] [place] [address] [id number] Jun, Dental examination Z01.20 [facility] [id number] [place] [address] [id number] May, Dental examination Z01.20 [facility] [address] [id number] May, Dental examination Z01.20 [facility] [address] [id number] May, Dental examination Z01.20 [facility] [address] 6[address]- 8[address] Apr, Dysfunction of both eustachian tubes H69.83 [facility] [address] [address] Apr, GERD (gastroesophageal reflux disease) K21.9 and Sore throat J02.9 [facility] [address] [id number] Apr, Dental examination Z01.20 [facility] [address] [id number]- 0256 Apr, Asthma exacerbation J45.901 [facility] [address] [id number] Mar, Dental examination Z01.20 [facility] [address] [id number] Feb, Dental examination Z01.20 [facility] [address] [address] Feb, Middle ear effusion, bilateral H65.93 [facility] [address] [address]- [address] Feb, Dysuria R30.0 and Diverticulitis of large intestine without perforation or abscess with bleeding K57.33 [place] [id number] [place] [address] 87521- 8365 January, Asthma with acute exacerbation in adult J45.901 [place] [address] 52149- 1584 January, Dysuria R30.0 ; Vaginal discharge N89.8 and Acute non- recurrent maxillary sinusitis J01.00 [place] [address] 98550- 1304 Dec, [place] [address] 41703- 6250 Dec, Sore throat J02.9 ; Acute mucoid otitis media of left ear H65.112 and Acute non-recurrent maxillary sinusitis J01.00 [place] [address] 69494- 7211 Dec, Bronchitis J40 [facility] [place] [address] [address] Dec, Shortness of breath R06.02 and Mild intermittent asthma without complication J45.20 [place] [address] 97512- 3734 Nov, Asthma exacerbation J45.901 and Bronchitis J40 [place] [id number] [place] [address] 13455- 3934 Oct, Acute mucoid otitis media of both ears H65.113 and Acute non -recurrent maxillary sinusitis J01.00 [facility] [address] [id number] Oct, Dental examination Z01.20 [place] [address] 70729- 5534 Sep, Exposure to influenza Z20.828 and Upper respiratory tract infection, unspecified type J06.9 [facility] [address] 10[address] Aug, Acute exacerbation of asthma with allergic rhinitis J45.901 [facility] [address] 358[address] Aug, Burning with urination R30.0 and Hematuria R31.9 [place] [address] 25113- 1499 08 Aug, 2016 Seasonal allergic rhinitis, unspecified allergic rhinitis trigger J30.2 and Dermatitis L30.9 [place] [address] 86152- 5442 17 Jul, 2016 Follow up Z09 [place] [address] 50195- 4294 15 Jul, 2016 [place] [address] 64942- 3040 10 Jul, 2016 Dysuria R30.0 ; Acute vaginitis N76.0 and PID (acute pelvic inflammatory disease) N73.0 [place] [address] 34960- 8896 Jul, Sore throat J02.9 [facility] [place] [address] 47[address]67 Jun, Acute otitis externa of both ears, unspecified type H60.503 [facility] IN [place] [address] 352[address]648 May, Sore throat J02.9 and Pharyngitis, unspecified etiology J02.9 [facility] CARE [facility] [id number] [place] [address] 43257 [address]6567 Apr, Dysuria R30.0 [facility] [place] [facility] [place] [address] 8[address] Mar, Viral infection B34.9 [facility] [place] [address] 80719 -4828 Mar, Dermatitis L30.9 [place] [address] [place] [address] 92387- 9720 27 Feb, 2016 Annual physical exam Z00.00 and Screen for STD (sexually transmitted disease) Z11.3 [facility] IN [facility] [id number] [place] [address] 09439 -3844 13 Feb, 2016 Pain with urination R30.[address] 90255- 4326 03 Feb, 2016 Other seasonal allergic rhinitis J30.2 [place] [address] 51045- 4746 29 Nov, 2015 Cough R05 and Viral syndrome B34.[address] 79325- 2455 22 Nov, 2015 Oral contraceptive pill surveillance Z30.41 and Left ovarian cyst N83.[address] 49622- 3689 16 Nov, 2015 Ovarian cyst N83.20 and Otitis media of both ears H66.93 [place] [id number] [place] [address] 44338- 1859 07 Nov, 2015 Sore throat J02.9 and Streptococcal pharyngitis J02.0 [place] [id number] [place] [address] 37426- 2385 17 Oct, 2015 Ovarian cyst N83.20 ; Hematuria R31.9 ; Urinary crystals R82.99 ; Left sided abdominal pain R10.9 and Allergic rhinitis J30.9 [place] [id number] [place] [address] 12157- 7763 14 Oct, [address] 02964- 5637 11 Oct, 2015 Left lower quadrant pain R10.32 ; Dysuria R30.0 ; History of constipation Z87.19 ; Routine screening for STI (sexually transmitted infection) Z11.3 ; CVA tenderness M54.9 ; Lower abdominal tenderness R10.819 ; Vaginal itching L29.8 and Family history of endometriosis Z84.2 [place] [id number] [place] [address] 81290- 5380 Oct, Asthma attack 493.92 ; UTI symptoms R39.9 and Sinusitis 473.9 [facility] [address] [place] [address] [id number] Aug, Dental examination Z01.20 [place] [address] 38088- 4921 Jul, Scabies B86 [place] [address] 61784- 4990 Jun, Otitis externa of both ears H60.93 [place] [id number] [place] [address] 63717- 6947 May, Asthma attack 493.92 [place] [address] 89028- 2813 Apr, Otitis externa of both ears 380.10 [place] [id number] [place] [address] 39068- 3477 Apr, Insect bite 919.4 [place] [id number] [place] [address] 60619- 1895 Apr, Infective otitis externa 380.10 [place] [address] 75297- 0642 Mar, Acute sinusitis 461.9 [place] [id number] [place] [address] 25595- 4280 Mar, Acute pharyngitis 462 [place] [id number] [place] [address] 63383- 3793 Feb, Otitis media of both ears 382.9 [place] [id number] [place] [address] 52026- 2772 Feb, Dysuria 788.1 and Urinary tract infection 599.0 [facility] [address] [address]- [address] Feb, Dysuria 788.1 [facility] [address] [address]- 9486 January, Sinusitis 473.9 [facility] [id number] [place] [address]- 5056 14 Dec, 2014 [facility] [id number] [address]- 4548 Dec, [facility] [address] [place] [address], [place] [address]- 5075 Nov, [facility] [id number] [place] [address], [place] [address]- 1477 Nov, [facility] [address] [place] [address] 74257- 1266 Oct, [facility] [id number] [address]- 1784 Oct, [facility] [id number] [place] [address], [place] [address]- 8398 Oct, [facility] [id number] [address]- 6530 Oct, [facility] [id number] [place] [address]- 2543 Oct, [facility] [id number] [address] 2547 Oct, [facility] [id number] [place] [address]- 0652 Aug, [facility] [id number] [address] [address]- [address] Aug, [facility] [address] [address]16 Aug, [facility] [address] [facility] [id number]43 Aug, IMMUNIZATIONS No Known Immunizations SOCIAL HISTORY Never Assessed REASON FOR VISIT Rx from lab PLAN OF CARE VITAL SIGNS MEDICATIONS Medication Instructions Dosage Frequency Start Date End Date Duration Status Ciprofloxacin HCl 250 MG Orally every 12 hrs 1 tablet 12h Dec, Dec, 05 days Active RESULTS No Results PROCEDURES No Known procedures INSTRUCTIONS MEDICATIONS ADMINISTERED No Known Medications MEDICAL (GENERAL) HISTORY Type Description Date Medical History asthma Medical History Seasonal allergies Surgical History myringotomy with ventilating tube x 2 Surgical History [place] teeth removal 09/01/2015
--- OUTSIDE RECORDS SUMMARY | 2018-06-09 21:19 | XMS REPORT ---
Author Author CARLYLE FOWLER 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 Name Role Phone CARLYLE FOWLER Unavailable PROBLEMS Type Condition ICD9-CM Code LUD41-[place] Code Onset Dates Condition Status SNOMED Code Problem Seasonal allergic rhinitis, unspecified allergic rhinitis trigger J30.2 Active 730302345 Problem Ovarian cyst N83.20 Active 25715120 Problem Gastroesophageal reflux disease, esophagitis presence not specified K21.9 Active 445410723 Problem Chronic maxillary sinusitis J32.0 Active 93167874 Problem GERD (gastroesophageal reflux disease) K21.9 Active 126216900 Problem Mild intermittent asthma without complication J45.20 Active 529732831 Problem Exacerbation of asthma, unspecified asthma severity, unspecified whether persistent J45.901 Active 752798066 Problem Slow transit constipation K59.01 Active 07433319 ALLERGIES Substance Reaction Event Type Date Status SulfADIAZINE Unknown Drug Allergy Dec, Active Penicillin V Potassium Unknown Drug Allergy Dec, Active ENCOUNTERS Encounter Location Date Diagnosis [place] [id number] [id number] [place] [address] 11097- 3184 Mar, Sore throat J02.9 ; Dysuria R30.0 ; Vaginal discharge N89.8 ; Screening for HPV (human papillomavirus) Z11.51 ; Gastroesophageal reflux disease, esophagitis presence not specified K21.9 and Chronic constipation K59.09 [facility] [id number] [place] [address] 13409- 1628 Feb, [facility] [id number] [place] [address] 21381- 3899 January, Dysuria R30.0 and Pyelonephritis N12 [facility] [id number] [place] [address] 88117- 8755 January, [place] [address] [address]- 9294 January, Acute recurrent maxillary sinusitis J01.01 [place] [address] 7[address]23- 8659 Dec, [place] [address] 62258- 2989 Dec, Lower abdominal pain R10.30 ; Polyuria R35.8 and Earache symptoms in both ears H92.03 [facility] [address] [place] [address]153 Dec, Gastroenteritis K52.9 [facility] [address] [address]1 Dec, Dysuria R30.0 ; Yeast infection of the vagina B37.3 and Shaking R25.[address] 69[address]- 6720 Nov, Exacerbation of asthma, unspecified asthma severity, unspecified whether persistent J45.901 [facility] [address] [place] [address] 83359 -2384 Nov, Acute frontal sinusitis, recurrence not specified J01.10 ; Post-nasal drainage R09.82 and Chronic asthma without complication, unspecified asthma severity, unspecified whether persistent J45.909 [facility] [address] [place] [address] 18232 -4110 Sep, Acute cystitis with hematuria N30.01 and Dysuria R30.0 [facility] [address] [id number] Sep, [facility] [address] [address]- 4434 Sep, Dysuria R30.0 [facility] [address] [id number] Sep, Dental examination Z01.20 [place] [id number] [place] [address] 36117- 3440 Sep, Encounter for dental examination and cleaning with abnormal findings Z01.21 [facility] [address] 7[address]80[address] Sep, Tooth pain K08.[address] 40687- 6155 Sep, Nevoid hyperpigmentation L81.[address] 32327- 2125 Aug, Nevoid hyperpigmentation L81.[address] 06116- 2074 Aug, Sore throat J02.9 ; Bronchitis J40 and Irritated nevus D22.[address] 27070- 9500 Aug, Dysuria R30.0 ; Acute cystitis with hematuria N30.01 ; Vaginal yeast infection B37.3 and Slow transit constipation K59.01 [facility] [place] [id number] [place] [address] 27008 -6457 Jul, [facility] [address] [id number] Jun, Dental examination Z01.20 [facility] [address] 86169 -35[address] Jun, Fluid level behind tympanic membrane of both ears H65.93 [facility] [address] 43126 -9509 Jun, Potential exposure to STD Z20.2 ; Dysuria R30.0 ; Vaginal discharge N89.8 and Candidiasis of female genitalia B37.3 [facility] [address] [id number] Jun, Dental examination Z01.20 [facility] [address] [place] [address] [id number] May, Dental examination Z01.20 [facility] [address] [place] [id number] [place] [address] [id number] May, Dental examination Z01.20 [facility] [address] [id number] [place] [address] [id number] May, Dental examination Z01.20 [facility] [id number] [place] [address] 13328- 5556 Apr, Dysfunction of both eustachian tubes H69.83 [facility] [address] 259453 -9026 Apr, GERD (gastroesophageal reflux disease) K21.9 and Sore throat J02.9 [facility] [address] [place] [address] [id number] [place] [address] [id number] Apr, Dental examination Z01.20 [facility] [id number] [place] [address] 14629- 7546 Apr, Asthma exacerbation J45.901 [facility] [address] [id number] [place] [address] [id number] Mar, Dental examination Z01.20 [facility] [address] [address] [id number] [place] [address] [id number] Feb, Dental examination Z01.20 [facility] [id number] [place] [address] 31670 -9186 Feb, Middle ear effusion, bilateral H65.93 [facility] [address] 46744- 9573 Feb, Dysuria R30.0 and Diverticulitis of large intestine without perforation or abscess with bleeding K57.33 [facility] [address] [id number] [place] [address] 32267- 7739 January, Asthma with acute exacerbation in adult J45.901 [place] [id number] [place] [address] 73187- 4911 January, Dysuria R30.0 ; Vaginal discharge N89.8 and Acute non- recurrent maxillary sinusitis J01.00 [place] [id number] [place] [address] 19031- 7782 Dec, [place] [address] 09379- 3073 Dec, Sore throat J02.9 ; Acute mucoid otitis media of left ear H65.112 and Acute non-recurrent maxillary sinusitis J01.[address] 31347- 6163 Dec, Bronchitis J40 [facility] [address] 81187 -0292 Dec, Shortness of breath R06.02 and Mild intermittent asthma without complication J45.20 [place] [address] 76603- 4290 Nov, Asthma exacerbation J45.901 and Bronchitis J40 [address] 96141- 3311 Oct, Acute mucoid otitis media of both ears H65.113 and Acute non -recurrent maxillary sinusitis J01.00 [facility] [address] [id number] Oct, Dental examination Z01.20 [place] [address] 61501- 9498 Sep, Exposure to influenza Z20.828 and Upper respiratory tract infection, unspecified type J06.9 [facility] [address] 74657 -3302 Aug, Acute exacerbation of asthma with allergic rhinitis J45.901 [facility] [address] 95168 -0431 Aug, Burning with urination R30.0 and Hematuria R31.9 [place] [address] 77585- 2771 08 Aug, 2016 Seasonal allergic rhinitis, unspecified allergic rhinitis trigger J30.2 and Dermatitis L30.9 [place] [address] 75458- 9962 17 Jul, 2016 Follow up Z09 [place] [address] 41800- 7423 15 Jul, 2016 [place] [address] 87638- 2838 10 Jul, 2016 Dysuria R30.0 ; Acute vaginitis N76.0 and PID (acute pelvic inflammatory disease) N73.0 [place] [address] 48354- 6404 02 Jul, 2016 Sore throat J02.9 [facility] [address] 51491 -2608 Jun, Acute otitis externa of both ears, unspecified type H60.503 [facility] [address] 29153 -2828 29 May, 2016 Sore throat J02.9 and Pharyngitis, unspecified etiology J02.9 [facility] [address] 08631 -6173 Apr, Dysuria R30.0 [facility] [address] 44285 -4158 18 Mar, 2016 Viral infection B34.9 [facility] [address] 05645 -7951 07 Mar, 2016 Dermatitis L30.9 [place] [address] 28386- 4699 27 Feb, 2016 Annual physical exam Z00.00 and Screen for STD (sexually transmitted disease) Z11.3 [facility] [id number] [place] [address] 44397 -8406 13 Feb, 2016 Pain with urination R30.9 [place] [id number] [place] [address] 12341- 4683 03 Feb, 2016 Other seasonal allergic rhinitis J30.2 [place] [address] 13074- 0836 29 Nov, 2015 Cough R05 and Viral syndrome B34.9 [place] [address] 42975- 0185 22 Nov, 2015 Oral contraceptive pill surveillance Z30.41 and Left ovarian cyst N83.20 [place] [address] 54289- 5939 16 Nov, 2015 Ovarian cyst N83.20 and Otitis media of both ears H66.93 [place] [address] 01337- 5781 07 Nov, 2015 Sore throat J02.9 and Streptococcal pharyngitis J02.0 [place] [address] 74752- 0176 17 Oct, 2015 Ovarian cyst N83.20 ; Hematuria R31.9 ; Urinary crystals R82.99 ; Left sided abdominal pain R10.9 and Allergic rhinitis J30.9 [place] [id number] [place] [address] 54730- 6611 14 Oct, 2015 [place] [address] 53721- 6201 11 Oct, 2015 Left lower quadrant pain R10.32 ; Dysuria R30.0 ; History of constipation Z87.19 ; Routine screening for STI (sexually transmitted infection) Z11.3 ; CVA tenderness M54.9 ; Lower abdominal tenderness R10.819 ; Vaginal itching L29.8 and Family history of endometriosis Z84.2 [place] [address] 26619- 9320 Oct, Asthma attack 493.92 ; UTI symptoms R39.9 and Sinusitis 473.9 [facility] [address] [address] [id number] [place] [address] [id number] Aug, Dental examination Z01.20 [facility] [address] [place] [address] [id number] [place] [address] 07967- 6815 Jul, Scabies B86 [place] [address] 17769- 5459 Jun, Otitis externa of both ears H60.93 [place] [address] [address] [id number] [place] [address] 04801- 4881 May, Asthma attack 493.92 [place] [address] [address] [id number] [place] [address] 90552- 0973 Apr, Otitis externa of both ears 380.10 [place] [id number] [place] [address] 00525- 2385 Apr, Insect bite 919.4 [place] [id number] [place] [address] 82918- 5414 Apr, Infective otitis externa 380.10 [place] [id number] [place] [address] 63056- 4065 Mar, Acute sinusitis 461.9 [place] [id number] [place] [address] 30900- 2973 Mar, Acute pharyngitis 462 [place] [id number] [place] [address] 82664- 9307 Feb, Otitis media of both ears 382.9 [place] [address] [id number] [place] [address] 41517- 8166 Feb, Dysuria 788.1 and Urinary tract infection 599.0 [place] [id number] [place] [address] 72299- 4123 Feb, Dysuria 788.1 [facility] [address] [address]- 6373 January, Sinusitis 473.9 [facility] [address] [place] [address]- 9776 14 Dec, 2014 [facility] [address] [place] [address]- 9868 Dec, [facility] [address] [place] [address]- 9455 Nov, [facility] [address] [place] [id number] 0441 Nov, [facility] [address] [address]- 5019 Oct, [facility] [address] [place] [address]- 4778 Oct, [facility] [address] [address]- 9938 Oct, [facility] [address] [place] [address]- 6400 Oct, [facility] [address] [place] [address]- 6361 Oct, [facility] [id number] [address]- 4561 Oct, [facility] [id number] [address]- 4952 Aug, [facility] [id number]- 1531 Aug, [facility] [address] [place] [id number] 9728 Aug, [facility] [id number] [address]- 3796 Aug, IMMUNIZATIONS No Known Immunizations SOCIAL HISTORY Never Assessed REASON FOR VISIT dysuria for 2 weeks. [email or web address] PLAN OF CARE Activity Details Follow Up prn Reason: VITAL SIGNS Height 59 in 2017-12-14 Weight 91 lbs 2017-12-14 Temperature 98.6 degrees Fahrenheit 2017-12-14 Heart Rate 80 bpm 2017-12-14 Respiratory Rate 18 2017-12-14 BMI 18.38 kg/m2 2017-12-14 Blood pressure systolic 100 mmHg 2017-12-14 Blood pressure diastolic 66 mmHg 2017-12-14 MEDICATIONS Medication Instructions Dosage Frequency Start Date End Date Duration Status Zyrtec Allergy 10 mg oral daily 1 tablet 24h Active MiraLax - Orally Once a day 17 grams 24h Aug, Active Flonase 50 mcg/act intranasally daily 1 spary each nostril 24h Aug, Active ProAir HFA 108 (90 Base) mcg/act Inhalation every 4 hrs 2 puffs as needed 4h Aug, Active Diflucan 200 MG Orally every 72 hours 1 tablet Dec, Dec, 3 days Active Azo Tabs 95 MG Orally Three times a day 2 tablets after meals 8h Active Symbicort 160-4.5 MCG/ACT Inhalation Twice a day 2 puffs 12h Nov, Active Singulair 10 MG Orally Once a day 1 tablet in the evening 24h January, Active RESULTS Name Result Date Reference Range GLUCOSE FINGERSTICK (IN HOUSE) 2017-12-14 GLU FINGERSTICK 75 PC Lot # Exp UA LONG DIP (IN HOUSE) 2017-12-14 Lot # [id number] Exp date 2017 10 31 Clarity clear Color red Odor none GLU trace ESTELA 1+ KET trace SG >=1.030 BLO negative pH 5.5 Protein trace URO 1.0 NIT positive AMANDA negative Lot # [id number] Exp date December 2017 PROCEDURES Procedure Date Ordered Result Body Site URINALYSIS, AUTO, W/O SCOPE December 14, 2017 GLUCOSE BLOOD TEST December 14, 2017 INSTRUCTIONS MEDICATIONS ADMINISTERED No Known Medications MEDICAL (GENERAL) HISTORY Type Description Date Medical History asthma Medical History Seasonal allergies Surgical History myringotomy with ventilating tube x 2 Surgical History [place] teeth removal 09/01/2015
--- OUTSIDE RECORDS SUMMARY | 2018-06-09 21:19 | XMS REPORT ---
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[employer] Name Role Phone CARLYLE FOWLER Unavailable PROBLEMS Type Condition ICD9-CM Code XZZ04-YY Code Onset Dates Condition Status SNOMED Code Problem Seasonal allergic rhinitis, unspecified allergic rhinitis trigger J30.2 Active 517465117 Problem Ovarian cyst N83.20 Active 68780925 Problem Gastroesophageal reflux disease, esophagitis presence not specified K21.9 Active 644600737 Problem Chronic maxillary sinusitis J32.0 Active 50329794 Problem GERD (gastroesophageal reflux disease) K21.9 Active 147025558 Problem Mild intermittent asthma without complication J45.20 Active 599090796 Problem Exacerbation of asthma, unspecified asthma severity, unspecified whether persistent J45.901 Active 210029147 Problem Slow transit constipation K59.01 Active 37351554 ALLERGIES Substance Reaction Event Type Date Status SulfADIAZINE Unknown Drug Allergy Dec, Active Penicillin V Potassium Unknown Drug Allergy Dec, Active ENCOUNTERS Encounter Location Date Diagnosis [place] [id number] [place] [address]954- 1762 Mar, [place] [id number] [place] [address] 27570- 8960 Mar, Sore throat J02.9 ; Dysuria R30.0 ; Vaginal discharge N89.8 ; Screening for HPV (human papillomavirus) Z11.51 ; Gastroesophageal reflux disease, esophagitis presence not specified K21.9 and Chronic constipation K59.09 [facility] [id number] [place] [address] 68399- 1137 Feb, [facility] [id number] [place] [address] 22032- 6355 January, Dysuria R30.0 and Pyelonephritis N12 [facility] [id number] [place] [address] 65267- 5006 January, [facility] [address] [address] January, Acute recurrent maxillary sinusitis J01.01 [facility] [address] 0[address]10- 0639 Dec, [place] [address] 94[address]- 1676 Dec, Lower abdominal pain R10.30 ; Polyuria R35.8 and Earache symptoms in both ears H92.03 [facility] [address] [place] [address]9185 Dec, Gastroenteritis K52.9 [facility] [address] [address] Dec, Dysuria R30.0 ; Yeast infection of the vagina B37.3 and Shaking R25.1 [facility] [id number] [place] [address] 36595- 3564 Nov, Exacerbation of asthma, unspecified asthma severity, unspecified whether persistent J45.901 [facility] [id number] [place] [address] 62718 -2423 Nov, Acute frontal sinusitis, recurrence not specified J01.10 ; Post-nasal drainage R09.82 and Chronic asthma without complication, unspecified asthma severity, unspecified whether persistent J45.909 [facility] [id number] [place] [address] 90566 -9428 Sep, Acute cystitis with hematuria N30.01 and Dysuria R30.0 [facility] [address] [id number] [place] [address] [id number] Sep, [facility] [id number] [place] [address] 22371- 9111 Sep, Dysuria R30.0 [facility] [address] [place] [address] [id number] 09 Sep, 2017 Dental examination Z01.20 [place] [address] 10697- 8565 08 Sep, 2017 Encounter for dental examination and cleaning with abnormal findings Z01.21 [facility] [address] 7[address]75[address] 08 Sep, 2017 Tooth pain K08.89 [place] [address] 96687- 6219 03 Sep, 2017 Nevoid hyperpigmentation L81.[address] 22671- 9821 Aug, Nevoid hyperpigmentation L81.[address] 76025- 7934 Aug, Sore throat J02.9 ; Bronchitis J40 and Irritated nevus D22.9 [place] [id number] [place] [address] 51624- 4854 Aug, Dysuria R30.0 ; Acute cystitis with hematuria N30.01 ; Vaginal yeast infection B37.3 and Slow transit constipation K59.01 [facility] [place] [id number] [place] [address] 52632 -0699 Jul, [facility] [id number] [place] [address] [phone] Jun, Dental examination Z01.20 [facility] [place] [id number] [place] [address] 88473 -5126 Jun, Fluid level behind tympanic membrane of both ears H65.93 [facility] [place] [id number] [place] [address] 00116 -2424 Jun, Potential exposure to STD Z20.2 ; Dysuria R30.0 ; Vaginal discharge N89.8 and Candidiasis of female genitalia B37.3 [facility] [address] [place] [address] [phone] Jun, Dental examination Z01.20 [facility] [id number] [place] [address] [id number] May, Dental examination Z01.20 [facility] [address] [id number] May, Dental examination Z01.20 [facility] [id number] [place] [address] [phone] May, Dental examination Z01.20 [facility] [address] 45121- 0191 Apr, Dysfunction of both eustachian tubes H69.83 [facility] [address] 75265 -8530 Apr, GERD (gastroesophageal reflux disease) K21.9 and Sore throat J02.9 [facility] [id number] [place] [address] [phone] Apr, Dental examination Z01.20 [facility] [address] 07275- 6951 Apr, Asthma exacerbation J45.901 [facility] [address] [id number] Mar, Dental examination Z01.20 [facility] [id number] [place] [address] [phone] Feb, Dental examination Z01.20 [facility] [address] 50256 -1693 Feb, Middle ear effusion, bilateral H65.93 [facility] [address] 70516- 8741 Feb, Dysuria R30.0 and Diverticulitis of large intestine without perforation or abscess with bleeding K57.33 [facility] [address] [place] [address]- [address] January, Asthma with acute exacerbation in adult J45.901 [place] [address] 73460- 4643 January, Dysuria R30.0 ; Vaginal discharge N89.8 and Acute non- recurrent maxillary sinusitis J01.00 [place] [address] 11259- 2978 Dec, [place] [address] 55588- 9700 Dec, Sore throat J02.9 ; Acute mucoid otitis media of left ear H65.112 and Acute non-recurrent maxillary sinusitis J01.00 [place] [address] 94342- 8323 Dec, Bronchitis J40 [facility] [place] [address] 51360 [address]0047 Dec, Shortness of breath R06.02 and Mild intermittent asthma without complication J45.20 [place] [id number] [place] [address] 38083- 0380 Nov, Asthma exacerbation J45.901 and Bronchitis J40 [place] [id number] [place] [address] 11992- 4604 Oct, Acute mucoid otitis media of both ears H65.113 and Acute non -recurrent maxillary sinusitis J01.00 [facility] [id number] [place] [address] [phone] Oct, Dental examination Z01.20 [place] [address] 26058- 3724 Sep, Exposure to influenza Z20.828 and Upper respiratory tract infection, unspecified type J06.9 [facility] [id number] [place] [address] 00867 -1671 Aug, Acute exacerbation of asthma with allergic rhinitis J45.901 [facility] [address] 98569 -5240 15 Aug, 2016 Burning with urination R30.0 and Hematuria R31.9 [place] [address] 25595- 7643 08 Aug, 2016 Seasonal allergic rhinitis, unspecified allergic rhinitis trigger J30.2 and Dermatitis L30.9 [place] [address] 98795- 2607 17 Jul, 2016 Follow up Z09 [place] [address] 93230- 0883 15 Jul, 2016 [place] [address] 38384- 5499 10 Jul, 2016 Dysuria R30.0 ; Acute vaginitis N76.0 and PID (acute pelvic inflammatory disease) N73.0 [place] [address] 31688- 0524 Jul, Sore throat J02.9 [facility] [address] 70968 -8842 Jun, Acute otitis externa of both ears, unspecified type H60.503 [facility] [address] 19976 -7249 May, Sore throat J02.9 and Pharyngitis, unspecified etiology J02.9 [facility] [address] 63612 -3893 Apr, Dysuria R30.0 [facility] [address] 74686 -8485 18 Mar, 2016 Viral infection B34.9 [facility] [address] 17171 -4993 07 Mar, 2016 Dermatitis L30.9 [place] [address] 41856- 9491 27 Feb, 2016 Annual physical exam Z00.00 and Screen for STD (sexually transmitted disease) Z11.3 [facility] [address] 86063 -0836 13 Feb, 2016 Pain with urination R30.[address] 04660- 5943 03 Feb, 2016 Other seasonal allergic rhinitis J30.2 [place] [address] 48274- 0870 29 Nov, 2015 Cough R05 and Viral syndrome B34.[address] 35538- 4936 22 Nov, 2015 Oral contraceptive pill surveillance Z30.41 and Left ovarian cyst N83.[address] 96333- 3750 16 Nov, 2015 Ovarian cyst N83.20 and Otitis media of both ears H66.[address] 13650- 0739 07 Nov, 2015 Sore throat J02.9 and Streptococcal pharyngitis J02.0 [place] [id number] [place] [address] 30998- 6630 17 Oct, 2015 Ovarian cyst N83.20 ; Hematuria R31.9 ; Urinary crystals R82.99 ; Left sided abdominal pain R10.9 and Allergic rhinitis J30.9 [place] [id number] [place] [address] 96060- 9219 14 Oct, [address] 45371- 8245 11 Oct, 2015 Left lower quadrant pain R10.32 ; Dysuria R30.0 ; History of constipation Z87.19 ; Routine screening for STI (sexually transmitted infection) Z11.3 ; CVA tenderness M54.9 ; Lower abdominal tenderness R10.819 ; Vaginal itching L29.8 and Family history of endometriosis Z84.2 [facility] [address] [place] [address] 18180- 5887 Oct, Asthma attack 493.92 ; UTI symptoms R39.9 and Sinusitis 473.9 [facility] [address] [id number] Aug, Dental examination Z01.20 [place] [address] 93450- 6694 Jul, Scabies B86 [place] [address] [address] [id number] [place] [address] 97066- 1739 Jun, Otitis externa of both ears H60.93 [place] [id number] [place] [address] 08955- 9208 May, Asthma attack 493.92 [place] [address] 57038- 6062 Apr, Otitis externa of both ears 380.10 [place] [id number] [place] [address] 86766- 8624 Apr, Insect bite 919.4 [place] [id number] [place] [address] 03979- 1806 Apr, Infective otitis externa 380.10 [place] [address] [id number] [place] [address] 11602- 4051 Mar, Acute sinusitis 461.9 [facility] [address] [id number] [place] [address] 24768- 0564 Mar, Acute pharyngitis 462 [place] [address] 48523- 4483 Feb, Otitis media of both ears 382.9 [place] [address] [address] [id number] [place] [address] 57624- 6581 Feb, Dysuria 788.1 and Urinary tract infection 599.0 [place] [id number] [place] [address]- 6793 Feb, Dysuria 788.1 [facility] [address] [place] [address], [place] [address]- 2920 January, Sinusitis 473.9 [facility] [id number] [place] [address]- 6596 Dec, [facility] [address] [place] [address], [place] [address]- 3527 Dec, [facility] [address] [place] [id number] [place] [address]- 6980 Nov, [facility] [id number] [place] [address]- 7088 Nov, [facility] [id number] [place] [address]- 4916 Oct, [facility] [address] [address]- 1878 Oct, [facility] [id number] [place] [address]- 2824 Oct, [facility] [id number] [place] [address]- 0912 Oct, [facility] [address] [address]- 2971 Oct, [facility] [address] [address]- 7[address] Oct, [facility] [id number] [place] [address]- 3559 Aug, [facility] [id number] [place] [address]- 3288 Aug, [facility] [place] [facility] [address] [address] Aug, [facility] [address] [address]- [address] Aug, IMMUNIZATIONS No Known Immunizations SOCIAL HISTORY Never Assessed REASON FOR VISIT Ear pain, nausea, and ear pain started Sun Francia PLAN OF CARE Activity Details Follow Up prn Reason: VITAL SIGNS Height 59 in 2017-12-20 Weight 85.4 lbs 2017-12-20 Temperature 98.9 degrees Fahrenheit 2017-12-20 Heart Rate 76 bpm 2017-12-20 Respiratory Rate 18 2017-12-20 BMI 17.25 kg/m2 2017-12-20 Blood pressure systolic 120 mmHg 2017-12-20 Blood pressure diastolic 68 mmHg 2017-12-20 MEDICATIONS Medication Instructions Dosage Frequency Start Date End Date Duration Status ProAir HFA 108 (90 Base) mcg/act Inhalation every 4 hrs 2 puffs as needed 4h Aug, Active Singulair 10 MG Orally Once a day 1 tablet in the evening 24h January, Active Symbicort 160-4.5 MCG/ACT Inhalation Twice a day 2 puffs 12h Nov, Active MiraLax - Orally Once a day 17 grams 24h Aug, Active Azo Tabs 95 MG Orally Three times a day 2 tablets after meals 8h Active Zofran ODT 4 MG Orally every 8 hours 1 tablet 8h Dec, 5 days Active Metronidazole 250 MG Orally every 8 hrs 2 tablets 8h Active Flonase 50 mcg/act intranasally daily 1 spary each nostril 24h Aug, Active Zyrtec Allergy 10 mg oral daily 1 tablet 24h Active RESULTS No Results PROCEDURES No Known procedures INSTRUCTIONS MEDICATIONS ADMINISTERED No Known Medications MEDICAL (GENERAL) HISTORY Type Description Date Medical History asthma Medical History Seasonal allergies Surgical History myringotomy with ventilating tube x 2 Surgical History Lenore teeth removal 09/01/2015
--- OUTSIDE RECORDS SUMMARY | 2018-06-09 21:19 | XMS REPORT ---
Author Author GISELE DAHL [facility] Address [address] [place] [address] Care Team Providers Care Manager Cardiac Cath Name Role Phone ARENASZHEN RENGISELE ALEXANDER Unavailable PROBLEMS Type Condition ICD9-CM Code MUT30-GN Code Onset Dates Condition Status SNOMED Code Problem Ovarian cyst N83.20 Active 43041921 Problem Chronic maxillary sinusitis J32.0 Active 72192883 Problem Exacerbation of asthma, unspecified asthma severity, unspecified whether persistent J45.901 Active 574925567 Problem Mild intermittent asthma without complication J45.20 Active 346620648 Problem Seasonal allergic rhinitis, unspecified allergic rhinitis trigger J30.2 Active 533664413 Problem Slow transit constipation K59.01 Active 53540617 Problem GERD (gastroesophageal reflux disease) K21.9 Active 315060308 ALLERGIES Substance Reaction Event Type Date Status SulfADIAZINE Unknown Drug Allergy Nov, Active Penicillin V Potassium Unknown Drug Allergy Nov, Active ENCOUNTERS Encounter Location Date Diagnosis [place] [address] [address] Feb, [place] [address] [address] January, Dysuria R30.0 and Pyelonephritis N12 [facility] [address] [address] January, [facility] [address] [address] January, Acute recurrent maxillary sinusitis J01.01 [facility] [address] [address] Dec, [facility] [address] [address] Dec, Lower abdominal pain R10.30 ; Polyuria R35.8 and Earache symptoms in both ears H92.03 [facility] [address] [place] [address] Dec, Gastroenteritis K52.9 [facility] [address] [address] Dec, Dysuria R30.0 ; Yeast infection of the vagina B37.3 and Shaking R25.[address] [address] Nov, Exacerbation of asthma, unspecified asthma severity, unspecified whether persistent J45.901 [facility] [address] [address] Nov, Acute frontal sinusitis, recurrence not specified J01.10 ; Post-nasal drainage R09.82 and Chronic asthma without complication, unspecified asthma severity, unspecified whether persistent J45.909 [facility] [address] [address] Sep, Acute cystitis with hematuria N30.01 and Dysuria R30.0 [facility] [address] [id number] Sep, [address] [address] Sep, Dysuria R30.0 [facility] [address] [id number] Sep, Dental examination Z01.[address] [address] 08 Sep, 2017 Encounter for dental examination and cleaning with abnormal findings Z01.21 [facility] [address] [place] [address] Sep, Tooth pain K08.[address] [address] Sep, Nevoid hyperpigmentation L81.9 [place] [id number] [place] [address] Aug, Nevoid hyperpigmentation L81.[address] [address] Aug, Sore throat J02.9 ; Bronchitis J40 and Irritated nevus D22.[address] [address] Aug, Dysuria R30.0 ; Acute cystitis with hematuria N30.01 ; Vaginal yeast infection B37.3 and Slow transit constipation K59.01 [facility] [address] [address] Jul, [facility] [address] [id number] Jun, Dental examination Z01.20 [facility] [address] [address] Jun, Fluid level behind tympanic membrane of both ears H65.93 [facility] [address] [address] Jun, Potential exposure to STD Z20.2 ; Dysuria R30.0 ; Vaginal discharge N89.8 and Candidiasis of female genitalia B37.3 [facility] [address] [place] [id number] [place] [id number] Jun, Dental examination Z01.20 [facility] [address] [id number] May, Dental examination Z01.20 [facility] [address] [id number] May, Dental examination Z01.20 [facility] [address] [id number] May, Dental examination Z01.20 [facility] [address] [place] [id number] [place] [address] Apr, Dysfunction of both eustachian tubes H69.83 [facility] [address] [place] [id number] [place] [address] Apr, GERD (gastroesophageal reflux disease) K21.9 and Sore throat J02.9 [facility] [address] [id number] Apr, Dental examination Z01.20 [facility] [address] [address] Apr, Asthma exacerbation J45.901 [facility] [address] [id number] Mar, Dental examination Z01.20 [facility] [address] [id number] Feb, Dental examination Z01.20 [facility] [address] [place] [id number] [place] [address] Feb, Middle ear effusion, bilateral H65.93 [facility] [address] [address] Feb, Dysuria R30.0 and Diverticulitis of large intestine without perforation or abscess with bleeding K57.33 [facility] [address] [address] January, Asthma with acute exacerbation in adult J45.901 [facility] [address] [address] January, Dysuria R30.0 ; Vaginal discharge N89.8 and Acute non- recurrent maxillary sinusitis J01.00 [facility] [address] [place] [id number] [place] [address] Dec, [facility] [address] [address] Dec, Sore throat J02.9 ; Acute mucoid otitis media of left ear H65.112 and Acute non-recurrent maxillary sinusitis J01.00 [place] [address] [address] 03 Dec, 2016 Bronchitis J40 [facility] [address] [address] Dec, Shortness of breath R06.02 and Mild intermittent asthma without complication J45.20 [place] [address] [address] Nov, Asthma exacerbation J45.901 and Bronchitis J40 [place] [address] [address] Oct, Acute mucoid otitis media of both ears H65.113 and Acute non -recurrent maxillary sinusitis J01.00 [facility] [address] [id number] Oct, Dental examination Z01.20 [place] [address] [address] Sep, Exposure to influenza Z20.828 and Upper respiratory tract infection, unspecified type J06.9 [facility] [address] [address] Aug, Acute exacerbation of asthma with allergic rhinitis J45.901 [facility] [address] [address] Aug, Burning with urination R30.0 and Hematuria R31.[address] [address] 08 Aug, 2016 Seasonal allergic rhinitis, unspecified allergic rhinitis trigger J30.2 and Dermatitis L30.[address] [address] Jul, Follow up Z09 [place] [address] [address] 15 Jul, 2016 [place] [address] [address] 10 Jul, 2016 Dysuria R30.0 ; Acute vaginitis N76.0 and PID (acute pelvic inflammatory disease) N73.[address] [address] 02 Jul, 2016 Sore throat J02.9 [facility] [address] [place] [address] 16 Jun, 2016 Acute otitis externa of both ears, unspecified type H60.503 [facility] [address] [address] 29 May, 2016 Sore throat J02.9 and Pharyngitis, unspecified etiology J02.9 [facility] [address] [address] Apr, Dysuria R30.0 [facility] [address] [address] Mar, Viral infection B34.9 [facility] [address] [address] Mar, Dermatitis L30.[address] [address] 27 Feb, 2016 Annual physical exam Z00.00 and Screen for STD (sexually transmitted disease) Z11.3 [facility] [address] [address] 13 Feb, 2016 Pain with urination R30.[address] [address] 03 Feb, 2016 Other seasonal allergic rhinitis J30.[address] [address] 29 Nov, 2015 Cough R05 and Viral syndrome B34.9 [place] [address] [place] [id number] [place] [address] 22 Nov, 2015 Oral contraceptive pill surveillance Z30.41 and Left ovarian cyst N83.20 [place] [address] [address] 16 Nov, 2015 Ovarian cyst N83.20 and Otitis media of both ears H66.93 [place] [address] [address] 07 Nov, 2015 Sore throat J02.9 and Streptococcal pharyngitis J02.[address] [address] 17 Oct, 2015 Ovarian cyst N83.20 ; Hematuria R31.9 ; Urinary crystals R82.99 ; Left sided abdominal pain R10.9 and Allergic rhinitis J30.9 [place] [address] [place] [id number] [place] [address] 14 Oct, 2015 [place] [id number] [place] [address] 11 Oct, 2016 Left lower quadrant pain R10.32 ; Dysuria R30.0 ; History of constipation Z87.19 ; Routine screening for STI (sexually transmitted infection) Z11.3 ; CVA tenderness M54.9 ; Lower abdominal tenderness R10.819 ; Vaginal itching L29.8 and Family history of endometriosis Z84.2 [place] [address] [place] [id number] [place] [address] 01 Oct, 2015 Asthma attack 493.92 ; UTI symptoms R39.9 and Sinusitis 473.9 [facility] [address] [place] [id number] [place] [id number] 09 Aug, 2015 Dental examination Z01.20 [place] [id number] [place] [address] 30 Jul, 2015 Scabies B86 [address] [place] [address] Jun, Otitis externa of both ears H60.93 [facility] [address] [place] [id number] [place] [address] May, Asthma attack 493.92 [facility] [address] [place] [id number] [place] [address] Apr, Otitis externa of both ears 380.10 [facility] [address] [place] [id number] [place] [address] Apr, Insect bite 919.4 [facility] [address] [place] [id number] [place] [address]- [address]1 Apr, Infective otitis externa 380.10 [facility] [address] [place] [id number] [place] [address] Mar, Acute sinusitis 461.9 [facility] [address] [place] [id number] [place] [address] Mar, Acute pharyngitis 462 [facility] [address] [place] [id number] [place] [address] Feb, Otitis media of both ears 382.9 [facility] [address] [place] [address] 28[address] Feb, Dysuria 788.1 and Urinary tract infection 599.0 [facility] [address] [place] [id number] [place] [address] Feb, Dysuria 788.1 [facility] [address] [place] [address]47[address] January, Sinusitis 473.9 [facility] [address] [place] [id number] [place] [address]- [address] Dec, [facility] [address] [place] [address] 8[address] Dec, [facility] [id number] [address] Nov, [facility] [address] [address] Nov, 2014 [facility] [id number] [address] Oct, 2014 [facility] [address] [place] [address] Oct, 2014 [facility] [address] [place] [id number] [address] Oct, 2014 [facility] [address] [place] [id number] [place] [address] 412717- [address] Oct, 2014 [facility] [address] [place] [id number] [place] [address] 8[address]12- [address] Oct, 2014 [facility] [address] [place] [id number] [place] [address] 8[address]- [address] Oct, 2014 [facility] [address] [address] Aug, [facility] [id number] [address] Aug, [facility] [id number] [address] Aug, [facility] [id number] [address] Aug, IMMUNIZATIONS No Known Immunizations SOCIAL HISTORY Never Assessed REASON FOR VISIT cough, chest congestion, sinus pressure. been sick for 5 days. [email or web address] PLAN OF CARE Activity Details Follow Up prn Reason: VITAL SIGNS Height 59 in 2017-11-16 Weight 87.0 lbs 2017-11-16 Temperature 99.5 degrees Fahrenheit 2017-11-16 Heart Rate 84 bpm 2017-11-16 Respiratory Rate 20 2017-11-16 BMI 17.57 kg/m2 2017-11-16 Blood pressure systolic 102 mmHg 2017-11-16 Blood pressure diastolic 68 mmHg 2017-11-16 MEDICATIONS Medication Instructions Dosage Frequency Start Date End Date Duration Status PredniSONE 5 MG (21) Orally Once a day take each days dose at one time daily.as directed 24h Nov, Active Depo-Provera 150 MG/ML Not-Taking Azithromycin 250 MG Orally Once a day 2 tablets on the first day, then 1 tablet daily for 4 days 24h 5 day(s) Not-Taking Zithromax Z-Papa 250 MG Orally Once a day 2 tablets on the first day, then 1 tablet daily for 4 days 24h Nov, Nov, 5 day(s) Active MiraLax - Orally Once a day 17 grams 24h Aug, Active Zyrtec Allergy 10 mg oral daily 1 tablet 24h Active ProAir HFA 108 (90 Base) mcg/act Inhalation every 4 hrs 2 puffs as needed 4h Aug, Active Flonase 50 mcg/act intranasally daily 1 spary each nostril 24h Aug, Active Singulair 10 MG Orally Once a day 1 tablet in the evening 24h January, 30 Active RESULTS No Results PROCEDURES No Known procedures INSTRUCTIONS MEDICATIONS ADMINISTERED No Known Medications MEDICAL (GENERAL) HISTORY Type Description Date Medical History asthma Medical History Seasonal allergies Surgical History myringotomy with ventilating tube x 2 Surgical History [place] teeth removal 09/01/2015
--- OUTSIDE RECORDS SUMMARY | 2018-06-09 21:20 | XMS REPORT ---
Author Author NEISHA ARCE [facility] Address Unknown Care Team Providers Care Molder Pipe Covering Name Role Phone NEISHA ARCE Unavailable PROBLEMS Type Condition ICD9-CM Code JRP08-VB Code Onset Dates Condition Status SNOMED Code Problem Ovarian cyst N83.20 Active 69279841 Problem Chronic maxillary sinusitis J32.0 Active 87906228 Problem Exacerbation of asthma, unspecified asthma severity, unspecified whether persistent J45.901 Active 703133239 Problem Mild intermittent asthma without complication J45.20 Active 255930019 Problem Seasonal allergic rhinitis, unspecified allergic rhinitis trigger J30.2 Active 916858697 Problem Slow transit constipation K59.01 Active 44439990 Problem GERD (gastroesophageal reflux disease) K21.9 Active 912862380 ALLERGIES Substance Reaction Event Type Date Status SulfADIAZINE Unknown Drug Allergy Sep, Active Penicillin V Potassium Unknown Drug Allergy Sep, Active ENCOUNTERS Encounter Location Date Diagnosis [place] [address] [address] Feb, [facility] [address] [address] January, Dysuria R30.0 and Pyelonephritis N12 [facility] [address] [place] [id number] [place] [address] January, [facility] [address] [address] January, Acute recurrent maxillary sinusitis J01.01 [facility] [address] [address] Dec, [facility] [address] [address] Dec, Lower abdominal pain R10.30 ; Polyuria R35.8 and Earache symptoms in both ears H92.03 [facility] [address] [place] [address] 12 Dec, 2017 Gastroenteritis K52.9 [facility] [place] [address] Dec, Dysuria R30.0 ; Yeast infection of the vagina B37.3 and Shaking R25.1 [place] [id number] Nov, Exacerbation of asthma, unspecified asthma severity, unspecified whether persistent J45.901 [facility] [place] [address] Nov, Acute frontal sinusitis, recurrence not specified J01.10 ; Post-nasal drainage R09.82 and Chronic asthma without complication, unspecified asthma severity, unspecified whether persistent J45.909 [facility] [address] [address] Sep, Acute cystitis with hematuria N30.01 and Dysuria R30.0 [facility] [address] [id number] Sep, [address] [address] Sep, Dysuria R30.0 [facility] [address] [id number] Sep, Dental examination Z01.[address] [address] 08 Sep, 2017 Encounter for dental examination and cleaning with abnormal findings Z01.21 [facility] [address] [address] Sep, Tooth pain K08.[address] [address] Sep, Nevoid hyperpigmentation L81.9 [facility] [address] [place] [id number] [place] [address] Aug, Nevoid hyperpigmentation L81.9 [place] [address] [address] Aug, Sore throat J02.9 ; Bronchitis J40 and Irritated nevus D22.[address] [address] Aug, Dysuria R30.0 ; Acute cystitis with hematuria N30.01 ; Vaginal yeast infection B37.3 and Slow transit constipation K59.01 [facility] [address] [address] Jul, [facility] [address] [id number] Jun, Dental examination Z01.20 [facility] [address] [address] Jun, Fluid level behind tympanic membrane of both ears H65.93 [facility] [address] [address] Jun, Potential exposure to STD Z20.2 ; Dysuria R30.0 ; Vaginal discharge N89.8 and Candidiasis of female genitalia B37.3 [facility] [address] [id number] Jun, Dental examination Z01.20 [facility] [address] [place] [id number] [place] [id number] May, Dental examination Z01.20 [facility] [address] [id number] May, Dental examination Z01.20 [facility] [address] [id number] May, Dental examination Z01.20 [facility] [address] [place] [address] 30 Apr, 2017 Dysfunction of both eustachian tubes H69.83 [facility] [address] [address] Apr, GERD (gastroesophageal reflux disease) K21.9 and Sore throat J02.9 [facility] [address] [id number] Apr, Dental examination Z01.20 [facility] [address] [address] Apr, Asthma exacerbation J45.901 [facility] [address] [id number] Mar, Dental examination Z01.20 [facility] [address] [id number] Feb, Dental examination Z01.20 [facility] [address] [address] Feb, Middle ear effusion, bilateral H65.93 [place] [address] [address] Feb, Dysuria R30.0 and Diverticulitis of large intestine without perforation or abscess with bleeding K57.33 [facility] [address] [address] January, Asthma with acute exacerbation in adult J45.901 [facility] [address] [address] January, Dysuria R30.0 ; Vaginal discharge N89.8 and Acute non- recurrent maxillary sinusitis J01.00 [place] [address] [address] Dec, [facility] [address] [address] Dec, Sore throat J02.9 ; Acute mucoid otitis media of left ear H65.112 and Acute non-recurrent maxillary sinusitis J01.00 [place] [address] [place] [id number] [place] [address] Dec, Bronchitis J40 [facility] [place] [address] [address] Dec, Shortness of breath R06.02 and Mild intermittent asthma without complication J45.20 [place] [address] [address] Nov, Asthma exacerbation J45.901 and Bronchitis J40 [address] [address] Oct, Acute mucoid otitis media of both ears H65.113 and Acute non -recurrent maxillary sinusitis J01.00 [facility] [address] [id number] Oct, 2016 Dental examination Z01.20 [place] [address] [address] Sep, Exposure to influenza Z20.828 and Upper respiratory tract infection, unspecified type J06.9 [facility] [place] [id number] [place] [address] Aug, Acute exacerbation of asthma with allergic rhinitis J45.901 [facility] [address] [address] Aug, Burning with urination R30.0 and Hematuria R31.[address] [address] 08 Aug, 2016 Seasonal allergic rhinitis, unspecified allergic rhinitis trigger J30.2 and Dermatitis L30.[address] [address] 17 Jul, 2016 Follow up Z09 [address] [address] 15 Jul, 2016 [facility] [address] [address] 10 Jul, 2016 Dysuria R30.0 ; Acute vaginitis N76.0 and PID (acute pelvic inflammatory disease) N73.0 [place] [address] [address] 02 Jul, 2016 Sore throat J02.9 [facility] [address] [address] 16 Jun, 2016 Acute otitis externa of both ears, unspecified type H60.503 [facility] [place] [address] [address] 29 May, 2016 Sore throat J02.9 and Pharyngitis, unspecified etiology J02.9 [facility] [address] [address] Apr, Dysuria R30.0 [facility] [place] [address] [address] 18 Mar, 2016 Viral infection B34.9 [facility] [address] [address] 07 Mar, 2016 Dermatitis L30.9 [place] [address] [address] 27 Feb, 2016 Annual physical exam Z00.00 and Screen for STD (sexually transmitted disease) Z11.3 [facility] [place] [address] [address] 13 Feb, 2016 Pain with urination R30.9 [place] [address] [address] 03 Feb, 2016 Other seasonal allergic rhinitis J30.2 [place] [address] [address] Nov, Cough R05 and Viral syndrome B34.9 [place] [id number] [place] [address] 22 Nov, 2015 Oral contraceptive pill surveillance Z30.41 and Left ovarian cyst N83.[address] [address] 16 Nov, 2015 Ovarian cyst N83.20 and Otitis media of both ears H66.[address] [address] 07 Nov, 2015 Sore throat J02.9 and Streptococcal pharyngitis J02.[address] [address] 17 Oct, 2015 Ovarian cyst N83.20 ; Hematuria R31.9 ; Urinary crystals R82.99 ; Left sided abdominal pain R10.9 and Allergic rhinitis J30.[address] [address] 14 Oct, [address] [address] 11 Oct, 2016 Left lower quadrant pain R10.32 ; Dysuria R30.0 ; History of constipation Z87.19 ; Routine screening for STI (sexually transmitted infection) Z11.3 ; CVA tenderness M54.9 ; Lower abdominal tenderness R10.819 ; Vaginal itching L29.8 and Family history of endometriosis Z84.2 [place] [id number] [place] [address] 01 Oct, 2015 Asthma attack 493.92 ; UTI symptoms R39.9 and Sinusitis 473.9 [facility] [address] [id number] 09 Aug, 2015 Dental examination Z01.[address] [address] Jul, Scabies B86 [address] [address] Jun, Otitis externa of both ears H60.93 [facility] [address] [place] [id number] [place] [address] May, Asthma attack 493.92 [facility] [address] [place] [id number] [place] [address] Apr, Otitis externa of both ears 380.10 [facility] [address] [address] Apr, Insect bite 919.4 [facility] [address] [place] [id number] [place] [address] Apr, Infective otitis externa 380.10 [facility] [address] [place] [id number] [place] [address]- [address] Mar, Acute sinusitis 461.9 [facility] [address] [place] [id number] [place] [address] Mar, Acute pharyngitis 462 [facility] [address] [place] [id number] [place] [address]- [address] Feb, Otitis media of both ears 382.9 [place] [address] [place] [id number] [place] [address] Feb, Dysuria 788.1 and Urinary tract infection 599.0 [place] [address] [place] [id number] [place] [address]- [address] Feb, Dysuria 788.1 [facility] [address] [place] [id number] [place] [address]- [address] January, Sinusitis 473.9 [facility] [address] [place] [id number] [place] [address]- [address] Dec, [facility] [address] [place] [id number] [place] [address]- [address] Dec, [facility] [address] [place] [id number] [place] [address]- [address] Nov, [facility] [address] [place] [id number] [address] Nov, [facility] [address] [address] Oct, 2014 [facility] [address] [address] Oct, 2014 [facility] [id number] [address] Oct, 2014 [facility] [address] [address] Oct, 2014 [facility] [id number] [place] [address] Oct, 2014 [facility] [id number] [place] [address]- [address] Oct, 2014 [facility] [address] [address] Aug, [facility] [id number] [place] [address]- [address] Aug, [facility] [address] [address] Aug, [facility] [address] [address] Aug, IMMUNIZATIONS No Known Immunizations SOCIAL HISTORY Never Assessed REASON FOR VISIT PAMELA PLAN OF CARE Activity Details Follow Up prn Reason:refer VITAL SIGNS Blood pressure systolic 104 mmHg 2017-09-18 Blood pressure diastolic 66 mmHg 2017-09-18 MEDICATIONS Medication Instructions Dosage Frequency Start Date End Date Duration Status Zyrtec Allergy 10 mg oral daily 1 tablet 24h Active Cipro Not-Taking MiraLax - Orally Once a day 17 grams 24h Aug, Active Fluticasone Propionate 50 MCG/ACT USE ONE SPRAY IN EACH NOSTRIL ONCE DAILY 30 Active Azithromycin 250 MG Orally Once a day 2 tablets on the first day, then 1 tablet daily for 4 days 24h 5 day(s) Not-Taking Depo-Provera 150 MG/ML Not-Taking Flonase 50 mcg/act intranasally daily 1 spary each nostril 24h Aug, Active ProAir HFA 108 (90 Base) mcg/act Inhalation every 4 hrs 2 puffs as needed 4h Aug, Active Singulair 10 MG Orally Once a day 1 tablet in the evening 24h January, 30 Active RESULTS No Results PROCEDURES Procedure Date Ordered Result Body Site LTD ORAL EVALUATION - PROBLEM FOCUS Sep 18, 2017 INSTRUCTIONS MEDICATIONS ADMINISTERED No Known Medications MEDICAL (GENERAL) HISTORY Type Description Date Medical History asthma Medical History Seasonal allergies Surgical History myringotomy with ventilating tube x 2 Surgical History Ernest teeth removal 09/01/2015
--- OUTSIDE RECORDS SUMMARY | 2018-06-09 21:20 | XMS REPORT ---
Author Author IVETH BENDER [facility] Address [address] [place] [address] Care Team Providers Care Resource Paraprofessional Name Role Phone NAPOLEON IVETH Unavailable PROBLEMS Type Condition ICD9-CM Code JZX31-WL Code Onset Dates Condition Status SNOMED Code Problem Ovarian cyst N83.20 Active 15024882 Problem Chronic maxillary sinusitis J32.0 Active 26091710 Problem Exacerbation of asthma, unspecified asthma severity, unspecified whether persistent J45.901 Active 591574229 Problem Mild intermittent asthma without complication J45.20 Active 639945028 Problem Seasonal allergic rhinitis, unspecified allergic rhinitis trigger J30.2 Active 381383763 Problem Slow transit constipation K59.01 Active 50540570 Problem GERD (gastroesophageal reflux disease) K21.9 Active 373432079 ALLERGIES Substance Reaction Event Type Date Status SulfADIAZINE Unknown Drug Allergy Nov, Active Penicillin V Potassium Unknown Drug Allergy Nov, Active ENCOUNTERS Encounter Location Date Diagnosis [place] [address] [address] Feb, [facility] [address] [address] January, Dysuria R30.0 and Pyelonephritis N12 [facility] [address] [address] January, [facility] [address] [address] January, Acute recurrent maxillary sinusitis J01.01 [facility] [address] [address] Dec, [facility] [address] [address] Dec, Lower abdominal pain R10.30 ; Polyuria R35.8 and Earache symptoms in both ears H92.03 [facility] [address] [place] [address] Dec, Gastroenteritis K52.9 [facility] [address] [address] Dec, Dysuria R30.0 ; Yeast infection of the vagina B37.3 and Shaking R25.[address] [address] Nov, Exacerbation of asthma, unspecified asthma severity, unspecified whether persistent J45.901 [facility] [address] [address] Nov, Acute frontal sinusitis, recurrence not specified J01.10 ; Post-nasal drainage R09.82 and Chronic asthma without complication, unspecified asthma severity, unspecified whether persistent J45.909 [facility] [address] [address] Sep, Acute cystitis with hematuria N30.01 and Dysuria R30.0 [facility] [address] [id number] Sep, [address] [address] Sep, Dysuria R30.0 [facility] [address] [id number] Sep, Dental examination Z01.[address] [address] 08 Sep, 2017 Encounter for dental examination and cleaning with abnormal findings Z01.21 [facility] [address] [place] [address] Sep, Tooth pain K08.[address] [address] Sep, Nevoid hyperpigmentation L81.9 [place] [id number] [place] [address] Aug, Nevoid hyperpigmentation L81.[address] [address] Aug, Sore throat J02.9 ; Bronchitis J40 and Irritated nevus D22.[address] [address] Aug, Dysuria R30.0 ; Acute cystitis with hematuria N30.01 ; Vaginal yeast infection B37.3 and Slow transit constipation K59.01 [facility] [address] [address] Jul, [facility] [address] [id number] Jun, Dental examination Z01.20 [facility] [address] [address] Jun, Fluid level behind tympanic membrane of both ears H65.93 [facility] [address] [address] Jun, Potential exposure to STD Z20.2 ; Dysuria R30.0 ; Vaginal discharge N89.8 and Candidiasis of female genitalia B37.3 [facility] [address] [place] [id number] [place] [id number] Jun, Dental examination Z01.20 [facility] [address] [id number] May, Dental examination Z01.20 [facility] [address] [id number] May, Dental examination Z01.20 [facility] [address] [id number] May, Dental examination Z01.20 [facility] [address] [place] [id number] [place] [address] Apr, Dysfunction of both eustachian tubes H69.83 [facility] [address] [place] [id number] [place] [address] Apr, GERD (gastroesophageal reflux disease) K21.9 and Sore throat J02.9 [facility] [address] [id number] Apr, Dental examination Z01.20 [facility] [address] [address] Apr, Asthma exacerbation J45.901 [facility] [address] [id number] Mar, Dental examination Z01.20 [facility] [address] [id number] Feb, Dental examination Z01.20 [facility] [address] [place] [id number] [place] [address] Feb, Middle ear effusion, bilateral H65.93 [facility] [address] [address] Feb, Dysuria R30.0 and Diverticulitis of large intestine without perforation or abscess with bleeding K57.33 [facility] [address] [address] January, Asthma with acute exacerbation in adult J45.901 [facility] [address] [address] January, Dysuria R30.0 ; Vaginal discharge N89.8 and Acute non- recurrent maxillary sinusitis J01.00 [facility] [address] [place] [id number] [place] [address] Dec, [facility] [address] [address] Dec, Sore throat J02.9 ; Acute mucoid otitis media of left ear H65.112 and Acute non-recurrent maxillary sinusitis J01.00 [place] [address] [address] 03 Dec, 2016 Bronchitis J40 [facility] [address] [address] Dec, Shortness of breath R06.02 and Mild intermittent asthma without complication J45.20 [place] [address] [address] Nov, Asthma exacerbation J45.901 and Bronchitis J40 [place] [address] [address] Oct, Acute mucoid otitis media of both ears H65.113 and Acute non -recurrent maxillary sinusitis J01.00 [facility] [address] [id number] Oct, Dental examination Z01.20 [place] [address] [address] Sep, Exposure to influenza Z20.828 and Upper respiratory tract infection, unspecified type J06.9 [facility] [address] [address] Aug, Acute exacerbation of asthma with allergic rhinitis J45.901 [facility] [address] [address] Aug, Burning with urination R30.0 and Hematuria R31.[address] [address] 08 Aug, 2016 Seasonal allergic rhinitis, unspecified allergic rhinitis trigger J30.2 and Dermatitis L30.[address] [address] Jul, Follow up Z09 [place] [address] [address] 15 Jul, 2016 [place] [address] [address] 10 Jul, 2016 Dysuria R30.0 ; Acute vaginitis N76.0 and PID (acute pelvic inflammatory disease) N73.[address] [address] 02 Jul, 2016 Sore throat J02.9 [facility] [address] [place] [address] 16 Jun, 2016 Acute otitis externa of both ears, unspecified type H60.503 [facility] [address] [address] 29 May, 2016 Sore throat J02.9 and Pharyngitis, unspecified etiology J02.9 [facility] [address] [address] Apr, Dysuria R30.0 [facility] [address] [address] Mar, Viral infection B34.9 [facility] [address] [address] Mar, Dermatitis L30.[address] [address] 27 Feb, 2016 Annual physical exam Z00.00 and Screen for STD (sexually transmitted disease) Z11.3 [facility] [address] [address] 13 Feb, 2016 Pain with urination R30.[address] [address] 03 Feb, 2016 Other seasonal allergic rhinitis J30.[address] [address] 29 Nov, 2015 Cough R05 and Viral syndrome B34.9 [place] [address] [place] [id number] [place] [address] 22 Nov, 2015 Oral contraceptive pill surveillance Z30.41 and Left ovarian cyst N83.20 [place] [address] [address] 16 Nov, 2015 Ovarian cyst N83.20 and Otitis media of both ears H66.93 [place] [address] [address] 07 Nov, 2015 Sore throat J02.9 and Streptococcal pharyngitis J02.[address] [address] 17 Oct, 2015 Ovarian cyst N83.20 ; Hematuria R31.9 ; Urinary crystals R82.99 ; Left sided abdominal pain R10.9 and Allergic rhinitis J30.9 [place] [address] [place] [id number] [place] [address] 14 Oct, 2015 [place] [id number] [place] [address] 11 Oct, 2016 Left lower quadrant pain R10.32 ; Dysuria R30.0 ; History of constipation Z87.19 ; Routine screening for STI (sexually transmitted infection) Z11.3 ; CVA tenderness M54.9 ; Lower abdominal tenderness R10.819 ; Vaginal itching L29.8 and Family history of endometriosis Z84.2 [place] [address] [place] [id number] [place] [address] 01 Oct, 2015 Asthma attack 493.92 ; UTI symptoms R39.9 and Sinusitis 473.9 [facility] [address] [place] [id number] [place] [id number] 09 Aug, 2015 Dental examination Z01.20 [place] [id number] [place] [address]- [address] 30 Jul, 2015 Scabies B86 [address] [place] [address] Jun, Otitis externa of both ears H60.93 [facility] [address] [place] [id number] [place] [address] May, Asthma attack 493.92 [facility] [address] [place] [id number] [place] [address] Apr, Otitis externa of both ears 380.10 [facility] [address] [place] [id number] [place] [address] Apr, Insect bite 919.4 [facility] [address] [place] [id number] [place] [address] Apr, Infective otitis externa 380.10 [facility] [address] [place] [id number] [place] [address] Mar, Acute sinusitis 461.9 [facility] [address] [place] [id number] [place] [address] Mar, Acute pharyngitis 462 [facility] [address] [place] [id number] [place] [address]- [address] Feb, Otitis media of both ears 382.9 [facility] [id number] [place] [address] Feb, Dysuria 788.1 and Urinary tract infection 599.0 [facility] [address] [place] [id number] [place] [address] Feb, Dysuria 788.1 [facility] [id number] [place] [address]- [address] January, Sinusitis 473.9 [facility] [address] [place] [id number] [place] [address]- [address] Dec, [facility] [id number] [place] [address] Dec, [facility] [address] [address] Nov, [facility] [id number] [place] [address] 063192- [address] Nov, [facility] [id number] [place] [address] 445509- [address] Oct, 2014 [facility] [id number] [place] [address]- [address] Oct, 2014 [facility] [address] [place] [id number] [place] [address] 9[address]50- [address]461 Oct, 2014 [facility] [address] [place] [id number] [place] [address]- [address] Oct, 2014 [facility] [address] [place] [id number] [place] [address] 710620- 9435 Oct, 2014 [facility] [address] [place] [id number] [place] [address] 136567- 9221 Oct, [facility] [id number] [place] [address] 112043- 8782 Aug, [facility] [id number] [place] [address] 422289- 0298 Aug, [facility] [address] [address] Aug, [facility] [address] [address] Aug, IMMUNIZATIONS No Known Immunizations SOCIAL HISTORY Never Assessed REASON FOR VISIT Congestion--tjanssenMA, --walkin on , pressure in chest, hard to breathe. , --pain along chest/back, Flu was Negative in walkin. , --been going on since last Sunday PLAN OF CARE Activity Details Follow Up prn or pending chest x-ray Reason: VITAL SIGNS Height 59 in 2017-11-20 Weight 90.5 lbs 2017-11-20 Temperature 98.1 degrees Fahrenheit 2017-11-20 Heart Rate 78 bpm 2017-11-20 Respiratory Rate 20 2017-11-20 BMI 18.28 kg/m2 2017-11-20 Blood pressure systolic 106 mmHg 2017-11-20 Blood pressure diastolic 78 mmHg 2017-11-20 MEDICATIONS Medication Instructions Dosage Frequency Start Date End Date Duration Status Zithromax Z-Papa 250 MG Orally Once a day 2 tablets on the first day, then 1 tablet daily for 4 days 24h Nov, Nov, Active Singulair 10 MG Orally Once a day 1 tablet in the evening 24h January, Active Flonase 50 mcg/act intranasally daily 1 spary each nostril 24h Aug, Active MiraLax - Orally Once a day 17 grams 24h Aug, Active Zyrtec Allergy 10 mg oral daily 1 tablet 24h Active PredniSONE 20 mg Orally Once a day 3 tablets daily X 3 days, then 2 tablets daily X 3 days, then 1 tablet daily X 3 days, then 1/2 tablet daily X 3 day 24h Nov, Nov, 12 days Active ProAir HFA 108 (90 Base) mcg/act Inhalation every 4 hrs 2 puffs as needed 4h Aug, Active Symbicort 160-4.5 MCG/ACT Inhalation Twice a day 2 puffs 12h Nov, Active Cefdinir 300 MG Orally every 12 hrs 1 capsule 12h Nov, Nov, 10 day(s) Active RESULTS Name Result Date Reference Range Xray : Chest 2 View (IN HOUSE) 2017-11-20 PROCEDURES Procedure Date Ordered Result Body Site X-RAY EXAM CHEST 2 VIEWS November 20, 2017 INSTRUCTIONS MEDICATIONS ADMINISTERED No Known Medications MEDICAL (GENERAL) HISTORY Type Description Date Medical History asthma Medical History Seasonal allergies Surgical History myringotomy with ventilating tube x 2 Surgical History [place] teeth removal 09/01/2015
--- OUTSIDE RECORDS SUMMARY | 2018-06-09 21:21 | XMS REPORT ---
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 Name Role Phone NAPOLEON IVETH Unavailable PROBLEMS Type Condition ICD9-CM Code JVF59-ET Code Onset Dates Condition Status SNOMED Code Problem Ovarian cyst N83.20 Active 82421122 Problem Chronic maxillary sinusitis J32.0 Active 24664539 Problem Exacerbation of asthma, unspecified asthma severity, unspecified whether persistent J45.901 Active 934662718 Problem Mild intermittent asthma without complication J45.20 Active 718859786 Problem Seasonal allergic rhinitis, unspecified allergic rhinitis trigger J30.2 Active 709959666 Problem Slow transit constipation K59.01 Active 04669156 Problem GERD (gastroesophageal reflux disease) K21.9 Active 641169483 ALLERGIES Substance Reaction Event Type Date Status SulfADIAZINE Unknown Drug Allergy Aug, Active Penicillin V Potassium Unknown Drug Allergy Aug, Active ENCOUNTERS Encounter Location Date Diagnosis [place] [address] [address] Feb, [facility] [address] [address] January, Dysuria R30.0 and Pyelonephritis N12 [facility] [address] [address] January, [facility] [address] [address] January, Acute recurrent maxillary sinusitis J01.01 [facility] [address] [address] Dec, [facility] [address] [address] Dec, Lower abdominal pain R10.30 ; Polyuria R35.8 and Earache symptoms in both ears H92.03 [facility] [address] [place] [address] Dec, Gastroenteritis K52.9 [facility] [place] [facility] [address] [address] Dec, Dysuria R30.0 ; Yeast infection of the vagina B37.3 and Shaking R25.[address] [address] Nov, Exacerbation of asthma, unspecified asthma severity, unspecified whether persistent J45.901 [facility] [address] [address] Nov, Acute frontal sinusitis, recurrence not specified J01.10 ; Post-nasal drainage R09.82 and Chronic asthma without complication, unspecified asthma severity, unspecified whether persistent J45.909 [facility] [address] [address] Sep, Acute cystitis with hematuria N30.01 and Dysuria R30.0 [facility] [address] [id number] Sep, [address] [address] Sep, Dysuria R30.0 [facility] [address] [id number] Sep, Dental examination Z01.[address] [address] 08 Sep, 2017 Encounter for dental examination and cleaning with abnormal findings Z01.21 [facility] [address] [place] [address] Sep, Tooth pain K08.[address] [address] Sep, Nevoid hyperpigmentation L81.9 [place] [id number] [place] [address] Aug, Nevoid hyperpigmentation L81.[address] [address] Aug, Sore throat J02.9 ; Bronchitis J40 and Irritated nevus D22.[address] [address] Aug, Dysuria R30.0 ; Acute cystitis with hematuria N30.01 ; Vaginal yeast infection B37.3 and Slow transit constipation K59.01 [facility] [address] [address] Jul, [facility] [address] [id number] Jun, Dental examination Z01.20 [facility] [address] [address] Jun, Fluid level behind tympanic membrane of both ears H65.93 [facility] [address] [address] Jun, Potential exposure to STD Z20.2 ; Dysuria R30.0 ; Vaginal discharge N89.8 and Candidiasis of female genitalia B37.3 [facility] [address] [place] [id number] [place] [id number] Jun, Dental examination Z01.20 [facility] [address] [id number] May, Dental examination Z01.20 [facility] [address] [id number] May, Dental examination Z01.20 [facility] [address] [id number] May, Dental examination Z01.20 [facility] [address] [place] [id number] [place] [address] Apr, Dysfunction of both eustachian tubes H69.83 [facility] [address] [place] [id number] [place] [address] Apr, GERD (gastroesophageal reflux disease) K21.9 and Sore throat J02.9 [facility] [address] [id number] Apr, Dental examination Z01.20 [facility] [address] [address] Apr, Asthma exacerbation J45.901 [facility] [address] [id number] Mar, Dental examination Z01.20 [facility] [address] [id number] Feb, Dental examination Z01.20 [facility] [address] [place] [id number] [place] [address] Feb, Middle ear effusion, bilateral H65.93 [facility] [address] [address] Feb, Dysuria R30.0 and Diverticulitis of large intestine without perforation or abscess with bleeding K57.33 [facility] [address] [address] January, Asthma with acute exacerbation in adult J45.901 [facility] [address] [address] January, Dysuria R30.0 ; Vaginal discharge N89.8 and Acute non- recurrent maxillary sinusitis J01.00 [facility] [address] [place] [id number] [place] [address] Dec, [facility] [address] [address] Dec, Sore throat J02.9 ; Acute mucoid otitis media of left ear H65.112 and Acute non-recurrent maxillary sinusitis J01.00 [place] [address] [address] 03 Dec, 2016 Bronchitis J40 [facility] [address] [address] Dec, Shortness of breath R06.02 and Mild intermittent asthma without complication J45.20 [place] [address] [address] Nov, Asthma exacerbation J45.901 and Bronchitis J40 [place] [address] [address] Oct, Acute mucoid otitis media of both ears H65.113 and Acute non -recurrent maxillary sinusitis J01.00 [facility] [address] [id number] Oct, Dental examination Z01.20 [place] [address] [address] Sep, Exposure to influenza Z20.828 and Upper respiratory tract infection, unspecified type J06.9 [facility] [address] [address] Aug, Acute exacerbation of asthma with allergic rhinitis J45.901 [facility] [address] [address] Aug, Burning with urination R30.0 and Hematuria R31.[address] [address] 08 Aug, 2016 Seasonal allergic rhinitis, unspecified allergic rhinitis trigger J30.2 and Dermatitis L30.[address] [address] Jul, Follow up Z09 [place] [address] [address] 15 Jul, 2016 [place] [address] [address] 10 Jul, 2016 Dysuria R30.0 ; Acute vaginitis N76.0 and PID (acute pelvic inflammatory disease) N73.[address] [address] 02 Jul, 2016 Sore throat J02.9 [facility] [address] [place] [address] 16 Jun, 2016 Acute otitis externa of both ears, unspecified type H60.503 [facility] [address] [address] 29 May, 2016 Sore throat J02.9 and Pharyngitis, unspecified etiology J02.9 [facility] [address] [address] Apr, Dysuria R30.0 [facility] [address] [address] Mar, Viral infection B34.9 [facility] [address] [address] Mar, Dermatitis L30.[address] [address] 27 Feb, 2016 Annual physical exam Z00.00 and Screen for STD (sexually transmitted disease) Z11.3 [facility] [address] [address] 13 Feb, 2016 Pain with urination R30.[address] [address] 03 Feb, 2016 Other seasonal allergic rhinitis J30.[address] [address] 29 Nov, 2015 Cough R05 and Viral syndrome B34.9 [place] [address] [place] [id number] [place] [address] 22 Nov, 2015 Oral contraceptive pill surveillance Z30.41 and Left ovarian cyst N83.20 [place] [address] [address] 16 Nov, 2015 Ovarian cyst N83.20 and Otitis media of both ears H66.93 [place] [address] [address] 07 Nov, 2015 Sore throat J02.9 and Streptococcal pharyngitis J02.[address] [address] 17 Oct, 2015 Ovarian cyst N83.20 ; Hematuria R31.9 ; Urinary crystals R82.99 ; Left sided abdominal pain R10.9 and Allergic rhinitis J30.9 [place] [address] [place] [id number] [place] [address] 14 Oct, 2015 [place] [id number] [place] [address] 11 Oct, 2016 Left lower quadrant pain R10.32 ; Dysuria R30.0 ; History of constipation Z87.19 ; Routine screening for STI (sexually transmitted infection) Z11.3 ; CVA tenderness M54.9 ; Lower abdominal tenderness R10.819 ; Vaginal itching L29.8 and Family history of endometriosis Z84.2 [place] [address] [place] [id number] [place] [address] 01 Oct, 2015 Asthma attack 493.92 ; UTI symptoms R39.9 and Sinusitis 473.9 [facility] [address] [place] [id number] [place] [id number] 09 Aug, 2015 Dental examination Z01.20 [place] [id number] [place] [address]- [address] 30 Jul, 2015 Scabies B86 [address] [place] [address]- [address] Jun, Otitis externa of both ears H60.93 [facility] [address] [place] [id number] [place] [address] May, Asthma attack 493.92 [facility] [address] [place] [id number] [place] [address] Apr, Otitis externa of both ears 380.10 [facility] [address] [place] [id number] [place] [address] Apr, Insect bite 919.4 [facility] [address] [place] [id number] [place] [address] 26264[address]67 Apr, Infective otitis externa 380.10 [facility] [address] [place] [id number] [place] [address]- 7722 Mar, Acute sinusitis 461.9 [facility] [address] [place] [id number] [place] [address]- [address] Mar, Acute pharyngitis 462 [facility] [address] [place] [id number] [place] [address]- [address]842 Feb, Otitis media of both ears 382.9 [facility] [address] [place] [address]- 89[address] Feb, Dysuria 788.1 and Urinary tract infection 599.0 [facility] [address] [place] [id number] [place] [address]87- 9133 Feb, Dysuria 788.1 [facility] [address] [place] [address]- [address] January, Sinusitis 473.9 [facility] [address] [place] [id number] [place] [address] 52341- [address] Dec, [facility] [id number] [place] [address] 98226- 9662 Dec, [facility] [address] [address] Nov, [facility] [address] [address] Nov, [facility] [address] [address] Oct, 2014 [facility] [id number] [place] [address] 321564- 7029 Oct, 2014 [facility] [address] [id number] [address] Oct, 2014 [facility] [address] [place] [id number] [place] [address] 001851- 7321 Oct, 2014 [facility] [address] [place] [id number] [place] [address] 43009- 8529 Oct, [facility] [address] [place] [id number] [place] [address] 6[address]84- [address]94 Oct, [facility] [address] [place] [address]- 8916 Aug, [facility] [address] [place] [address] 9[address]- [address]75 Aug, [facility] [address] [address] Aug, [facility] [address] [address] Aug, IMMUNIZATIONS No Known Immunizations SOCIAL HISTORY Never Assessed REASON FOR VISIT Sore throat/cough x1 week. -CODI Leavitt PLAN OF CARE Activity Details Follow Up lizandro escamilla aprn. if not improving with PCP or reg follow up Reason: mole removal VITAL SIGNS Height 59 in 2017-08-28 Weight 88.7 lbs 2017-08-28 Temperature 98.1 degrees Fahrenheit 2017-08-28 Heart Rate 88 bpm 2017-08-28 Respiratory Rate 16 2017-08-28 Oximetry 100 % 2017-08-28 BMI 17.91 kg/m2 2017-08-28 Blood pressure systolic 110 mmHg 2017-08-28 Blood pressure diastolic 70 mmHg 2017-08-28 MEDICATIONS Medication Instructions Dosage Frequency Start Date End Date Duration Status PredniSONE 20 mg Orally Once a day 1 tablet 24h Aug, Aug, 05 days Active Zyrtec Allergy 10 mg oral daily 1 tablet 24h Active Azithromycin 250 MG Orally Once a day 2 tablets on the first day, then 1 tablet daily for 4 days 24h 5 day(s) Active Depo-Provera 150 MG/ML Active Cipro Not-Taking ProAir HFA 108 (90 Base) mcg/act Inhalation every 4 hrs 2 puffs as needed 4h Aug, Active MiraLax - Orally Once a day 17 grams 24h Aug, Active Flonase 50 mcg/act intranasally daily 1 spary each nostril 24h Aug, Active Singulair 10 MG Orally Once a day 1 tablet in the evening 24h January, Active RESULTS Name Result Date Reference Range STREP A (IN HOUSE) 2017-08-28 STREP A Negative Control + Lot # [id number] Exp date 05/2018 PROCEDURES Procedure Date Ordered Result Body Site MEASURE BLOOD OXYGEN LEVEL Aug 28, 2017 STREP A ASSAY W/OPTIC Aug 28, 2017 INSTRUCTIONS MEDICATIONS ADMINISTERED No Known Medications MEDICAL (GENERAL) HISTORY Type Description Date Medical History asthma Medical History Seasonal allergies Surgical History myringotomy with ventilating tube x 2 Surgical History [place] teeth removal 09/01/2015
--- OUTSIDE RECORDS SUMMARY | 2018-06-09 21:21 | XMS REPORT ---
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 Name Role Phone [email or web address] Unavailable PROBLEMS Type Condition ICD9-CM Code MVK25-SB Code Onset Dates Condition Status SNOMED Code Problem Ovarian cyst N83.20 Active 42288872 Problem Chronic maxillary sinusitis J32.0 Active 79642535 Problem Exacerbation of asthma, unspecified asthma severity, unspecified whether persistent J45.901 Active 839700992 Problem Mild intermittent asthma without complication J45.20 Active 362459751 Problem Seasonal allergic rhinitis, unspecified allergic rhinitis trigger J30.2 Active 208626868 Problem Slow transit constipation K59.01 Active 34916198 Problem GERD (gastroesophageal reflux disease) K21.9 Active 958351988 ALLERGIES Substance Reaction Event Type Date Status SulfADIAZINE Unknown Drug Allergy Sep, Active Penicillin V Potassium Unknown Drug Allergy Sep, Active ENCOUNTERS Encounter Location Date Diagnosis [place] [address] [address] Feb, [place] [address] [address] January, Dysuria R30.0 and Pyelonephritis N12 [facility] [place] [address] [place] [id number] [place] [address] January, [facility] [place] [address] [address] January, Acute recurrent maxillary sinusitis J01.01 [facility] [place] [address] [place] [id number] [place] [address] Dec, [facility] [place] [address] [address] Dec, Lower abdominal pain R10.30 ; Polyuria R35.8 and Earache symptoms in both ears H92.03 [facility] [address] [place] [address] Dec, Gastroenteritis K52.9 [facility] [place] [facility] [address] [address] Dec, Dysuria R30.0 ; Yeast infection of the vagina B37.3 and Shaking R25.[address] [address] Nov, Exacerbation of asthma, unspecified asthma severity, unspecified whether persistent J45.901 [facility] [address] [address] Nov, Acute frontal sinusitis, recurrence not specified J01.10 ; Post-nasal drainage R09.82 and Chronic asthma without complication, unspecified asthma severity, unspecified whether persistent J45.909 [facility] [address] [address] Sep, Acute cystitis with hematuria N30.01 and Dysuria R30.0 [facility] [address] [id number] Sep, [address] [address] Sep, Dysuria R30.0 [facility] [address] [id number] Sep, Dental examination Z01.[address] [address] Sep, Encounter for dental examination and cleaning with abnormal findings Z01.21 [facility] [address] [place] [address] Sep, Tooth pain K08.[address] [address] Sep, Nevoid hyperpigmentation L81.9 [facility] [place] [address] [place] [id number] [place] [address] Aug, Nevoid hyperpigmentation L81.9 [place] [address] [address] Aug, Sore throat J02.9 ; Bronchitis J40 and Irritated nevus D22.9 [place] [address] [address] Aug, Dysuria R30.0 ; Acute cystitis with hematuria N30.01 ; Vaginal yeast infection B37.3 and Slow transit constipation K59.01 [facility] [address] [address] Jul, [facility] [address] [id number] Jun, Dental examination Z01.20 [facility] [address] [address] Jun, Fluid level behind tympanic membrane of both ears H65.93 [facility] [address] [address] Jun, Potential exposure to STD Z20.2 ; Dysuria R30.0 ; Vaginal discharge N89.8 and Candidiasis of female genitalia B37.3 [facility] [address] [place] [id number] [place] [id number] Jun, Dental examination Z01.20 [facility] [address] [place] [id number] [place] [id number] May, Dental examination Z01.20 [facility] [address] [id number] May, Dental examination Z01.20 [facility] [address] [place] [id number] [place] [id number] May, Dental examination Z01.20 [facility] [place] [address] [place] [id number] [place] [address] Apr, Dysfunction of both eustachian tubes H69.83 [facility] [address] [place] [id number] [place] [address] Apr, GERD (gastroesophageal reflux disease) K21.9 and Sore throat J02.9 [facility] [address] [id number] Apr, Dental examination Z01.20 [facility] [place] [address] [address] Apr, Asthma exacerbation J45.901 [facility] [address] [id number] Mar, Dental examination Z01.20 [facility] [address] [id number] Feb, Dental examination Z01.20 [facility] [address] [place] [id number] [place] [address] Feb, Middle ear effusion, bilateral H65.93 [facility] [place] [address] [address] Feb, Dysuria R30.0 and Diverticulitis of large intestine without perforation or abscess with bleeding K57.33 [facility] [place] [address] [place] [id number] [place] [address] January, Asthma with acute exacerbation in adult J45.901 [facility] [place] [address] [place] [id number] [place] [address] January, Dysuria R30.0 ; Vaginal discharge N89.8 and Acute non- recurrent maxillary sinusitis J01.00 [facility] [place] [address] [place] [id number] [place] [address] Dec, [facility] [place] [address] [address] Dec, Sore throat J02.9 ; Acute mucoid otitis media of left ear H65.112 and Acute non-recurrent maxillary sinusitis J01.00 [place] [address] [address] 03 Dec, 2016 Bronchitis J40 [facility] [place] [address] [address] 02 Dec, 2016 Shortness of breath R06.02 and Mild intermittent asthma without complication J45.20 [place] [address] [address] Nov, Asthma exacerbation J45.901 and Bronchitis J40 [place] [address] [address] Oct, Acute mucoid otitis media of both ears H65.113 and Acute non -recurrent maxillary sinusitis J01.00 [facility] [address] [id number] Oct, Dental examination Z01.20 [place] [address] [address] Sep, Exposure to influenza Z20.828 and Upper respiratory tract infection, unspecified type J06.9 [facility] [place] [id number] [place] [address] Aug, Acute exacerbation of asthma with allergic rhinitis J45.901 [facility] [place] [id number] [place] [address] Aug, Burning with urination R30.0 and Hematuria R31.[address] [address] 08 Aug, 2016 Seasonal allergic rhinitis, unspecified allergic rhinitis trigger J30.2 and Dermatitis L30.[address] [address] Jul, Follow up Z09 [place] [address] [address] 15 Jul, 2016 [place] [address] [address] 10 Jul, 2016 Dysuria R30.0 ; Acute vaginitis N76.0 and PID (acute pelvic inflammatory disease) N73.[address] [address] 02 Jul, 2016 Sore throat J02.9 [facility] [address] [place] [address] 16 Jun, 2016 Acute otitis externa of both ears, unspecified type H60.503 [facility] [address] [address] 29 May, 2016 Sore throat J02.9 and Pharyngitis, unspecified etiology J02.9 [facility] [address] [address] Apr, Dysuria R30.0 [facility] [address] [address] 18 Mar, 2016 Viral infection B34.9 [facility] [address] [address] 07 Mar, 2016 Dermatitis L30.[address] [address]- [address] 27 Feb, 2016 Annual physical exam Z00.00 and Screen for STD (sexually transmitted disease) Z11.3 [facility] [address] [address] 13 Feb, 2016 Pain with urination R30.[address] [address] 03 Feb, 2016 Other seasonal allergic rhinitis J30.[address] [address] Nov, Cough R05 and Viral syndrome B34.9 [place] [address] [place] [id number] [place] [address]30- 05[address] 22 Nov, 2015 Oral contraceptive pill surveillance Z30.41 and Left ovarian cyst N83.20 [place] [address] [address] 16 Nov, 2015 Ovarian cyst N83.20 and Otitis media of both ears H66.93 [place] [address] [address]- [address] 07 Nov, 2015 Sore throat J02.9 and Streptococcal pharyngitis J02.[address] [address]- [address] 17 Oct, 2015 Ovarian cyst N83.20 ; Hematuria R31.9 ; Urinary crystals R82.99 ; Left sided abdominal pain R10.9 and Allergic rhinitis J30.9 [place] [address] [address] 14 Oct, 2015 [place] [id number] [place] [address]43[address] 11 Oct, 2015 Left lower quadrant pain R10.32 ; Dysuria R30.0 ; History of constipation Z87.19 ; Routine screening for STI (sexually transmitted infection) Z11.3 ; CVA tenderness M54.9 ; Lower abdominal tenderness R10.819 ; Vaginal itching L29.8 and Family history of endometriosis Z84.2 [place] [address] [place] [id number] [place] [address] 7[address]79- 7387 01 Oct, 2015 Asthma attack 493.92 ; UTI symptoms R39.9 and Sinusitis 473.9 [facility] [address] [id number] 09 Aug, 2015 Dental examination Z01.20 [place] [id number] [place] [address] 6[address]42- [address] 30 Jul, 2015 Scabies B86 [id number] [address] Jun, Otitis externa of both ears H60.93 [facility] [place] [address] [place] [id number] [place] [address]99- 5743 May, Asthma attack 493.92 [facility] [place] [address] [place] [address]246- [address] Apr, Otitis externa of both ears 380.10 [facility] [place] [address] [place] [id number] [place] [address] 16396- 8456 Apr, Insect bite 919.4 [facility] [place] [address] [place] [id number] [place] [address] 61332- 7052 Apr, Infective otitis externa 380.10 [facility] [place] [address] [place] [id number] [place] [address] 33653- 7011 Mar, Acute sinusitis 461.9 [facility] [place] [address] [place] [id number] [place] [address] 48242- 4753 Mar, Acute pharyngitis 462 [facility] [place] [address] [place] [id number] [place] [address] 24142- 1633 Feb, Otitis media of both ears 382.9 [facility] [place] [address] [place] [address] Feb, Dysuria 788.1 and Urinary tract infection 599.0 [facility] [place] [address] [place] [address] 52874- 0918 Feb, Dysuria 788.1 [facility] [place] [address] [place] [address] 66640- [address]01 January, Sinusitis 473.9 [facility] [place] [address] [place] [address] 279119- 3878 Dec, [facility] [place] [address] [place] [address] Dec, [facility] [place] [address] [place] [id number] [address] Nov, [facility] [place] [address] [place] [address] 991132- 1633 Nov, 2014 [facility] [place] [address] Oct, 2014 [facility] [place] [address] [place] [address] 75701- 7306 Oct, 2014 [facility] [place] [address] [place] [id number] [place] [address] 995293- 1564 Oct, 2014 [facility] [place] [address] [place] [id number] [place] [address] 345989- 9494 Oct, 2014 [facility] [place] [address] [place] [id number] [place] [address] 283405- 3720 Oct, 2014 [facility] [place] [address] [place] [id number] [place] [address] 585174- 4954 Oct, 2014 [facility] [place] [address] [place] [id number] [place] [address] 55047- 5875 Aug, [facility] [place] [address] [place] [id number] [place] [address] 826181- 6788 Aug, [facility] [place] [id number] [place] [address] 75981- 9268 Aug, [facility] [place] [address] [address] Aug, IMMUNIZATIONS No Known Immunizations SOCIAL HISTORY Never Assessed REASON FOR VISIT dysuria and frequency with little results. also has flank pain. been like this for a week. connie PLAN OF CARE Activity Details Follow Up prn Reason: VITAL SIGNS Height 59 in 2017-10-10 Weight 89.9 lbs 2017-10-10 Temperature 99.5 degrees Fahrenheit 2017-10-10 Heart Rate 88 bpm 2017-10-10 Respiratory Rate 20 2017-10-10 BMI 18.16 kg/m2 2017-10-10 Blood pressure systolic 100 mmHg 2017-10-10 Blood pressure diastolic 58 mmHg 2017-10-10 MEDICATIONS Medication Instructions Dosage Frequency Start Date End Date Duration Status Azithromycin 250 MG Orally Once a day 2 tablets on the first day, then 1 tablet daily for 4 days 24h 5 day(s) Not-Taking MiraLax - Orally Once a day 17 grams 24h Aug, Active Zyrtec Allergy 10 mg oral daily 1 tablet 24h Active Macrobid 100 MG Orally every 12 hrs 1 capsule with food 12h Sep, Oct, 7 day(s) Active Depo-Provera 150 MG/ML Not-Taking Singulair 10 MG Orally Once a day 1 tablet in the evening 24h January, 30 Active ProAir HFA 108 (90 Base) mcg/act Inhalation every 4 hrs 2 puffs as needed 4h Aug, Active Flonase 50 mcg/act intranasally daily 1 spary each nostril 24h Aug, Active RESULTS No Results PROCEDURES Procedure Date Ordered Result Body Site URINALYSIS, AUTO, W/O SCOPE Oct 10, 2017 URINE CULTURE/COLONY COUNT Oct 10, 2017 INSTRUCTIONS MEDICATIONS ADMINISTERED No Known Medications MEDICAL (GENERAL) HISTORY Type Description Date Medical History asthma Medical History Seasonal allergies Surgical History myringotomy with ventilating tube x 2 Surgical History Mary D teeth removal 09/01/2015
--- OUTSIDE RECORDS SUMMARY | 2018-06-09 21:22 | XMS REPORT ---
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 Name Role Phone ABBY FERNANDEZ Unavailable PROBLEMS Type Condition ICD9-CM Code LGG09-YZ Code Onset Dates Condition Status SNOMED Code Problem Ovarian cyst N83.20 Active 31466473 Problem Chronic maxillary sinusitis J32.0 Active 97997794 Problem Exacerbation of asthma, unspecified asthma severity, unspecified whether persistent J45.901 Active 399543572 Problem Mild intermittent asthma without complication J45.20 Active 382709212 Problem Seasonal allergic rhinitis, unspecified allergic rhinitis trigger J30.2 Active 583386024 Problem Slow transit constipation K59.01 Active 55306917 Problem GERD (gastroesophageal reflux disease) K21.9 Active 853452013 ALLERGIES Substance Reaction Event Type Date Status SulfADIAZINE Unknown Drug Allergy Aug, Active Penicillin V Potassium Unknown Drug Allergy Aug, Active ENCOUNTERS Encounter Location Date Diagnosis [place] [address] [address] Feb, [place] [address] [address] January, Dysuria R30.0 and Pyelonephritis N12 [facility] [address] [place] [id number] [place] [address] January, [facility] [address] [address] January, Acute recurrent maxillary sinusitis J01.01 [facility] [address] [address] Dec, [facility] [address] [address] Dec, Lower abdominal pain R10.30 ; Polyuria R35.8 and Earache symptoms in both ears H92.03 [facility] [address] [place] [address] Dec, Gastroenteritis K52.9 [facility] [address] [address] Dec, Dysuria R30.0 ; Yeast infection of the vagina B37.3 and Shaking R25.[address] [address] Nov, Exacerbation of asthma, unspecified asthma severity, unspecified whether persistent J45.901 [facility] [address] [address] Nov, Acute frontal sinusitis, recurrence not specified J01.10 ; Post-nasal drainage R09.82 and Chronic asthma without complication, unspecified asthma severity, unspecified whether persistent J45.909 [facility] [address] [address] Sep, Acute cystitis with hematuria N30.01 and Dysuria R30.0 [facility] [address] [id number] Sep, [address] [address] Sep, Dysuria R30.0 [facility] [address] [id number] Sep, Dental examination Z01.[address] [address] 08 Sep, 2017 Encounter for dental examination and cleaning with abnormal findings Z01.21 [facility] [address] [place] [address] Sep, Tooth pain K08.[address] [address] Sep, Nevoid hyperpigmentation L81.9 [facility] [address] [place] [id number] [place] [address] Aug, Nevoid hyperpigmentation L81.[address] [address] Aug, Sore throat J02.9 ; Bronchitis J40 and Irritated nevus D22.[address] [address] Aug, Dysuria R30.0 ; Acute cystitis with hematuria N30.01 ; Vaginal yeast infection B37.3 and Slow transit constipation K59.01 [facility] [address] [address] Jul, [facility] [address] [id number] Jun, Dental examination Z01.20 [facility] [address] [address] Jun, Fluid level behind tympanic membrane of both ears H65.93 [facility] [address] [address] Jun, Potential exposure to STD Z20.2 ; Dysuria R30.0 ; Vaginal discharge N89.8 and Candidiasis of female genitalia B37.3 [facility] [address] [place] [id number] [place] [id number] Jun, Dental examination Z01.20 [facility] [address] [id number] May, Dental examination Z01.20 [facility] [address] [id number] May, Dental examination Z01.20 [facility] [address] [id number] May, Dental examination Z01.20 [place] [address] [place] [id number] [place] [address] Apr, Dysfunction of both eustachian tubes H69.83 [facility] [address] [address] Apr, GERD (gastroesophageal reflux disease) K21.9 and Sore throat J02.9 [facility] [address] [id number] Apr, Dental examination Z01.20 [facility] [address] [address] Apr, Asthma exacerbation J45.901 [facility] [address] [id number] Mar, Dental examination Z01.20 [facility] [address] [id number] Feb, Dental examination Z01.20 [facility] [address] [place] [id number] [place] [address] Feb, Middle ear effusion, bilateral H65.93 [facility] [address] [address] Feb, Dysuria R30.0 and Diverticulitis of large intestine without perforation or abscess with bleeding K57.33 [place] [address] [address] January, Asthma with acute exacerbation in adult J45.901 [facility] [address] [address] January, Dysuria R30.0 ; Vaginal discharge N89.8 and Acute non- recurrent maxillary sinusitis J01.00 [facility] [address] [place] [id number] [place] [address] Dec, [place] [address] [address] Dec, Sore throat J02.9 ; Acute mucoid otitis media of left ear H65.112 and Acute non-recurrent maxillary sinusitis J01.00 [place] [address] [address] Dec, Bronchitis J40 [facility] [place] [address] [address] Dec, Shortness of breath R06.02 and Mild intermittent asthma without complication J45.20 [place] [address] [address] Nov, Asthma exacerbation J45.901 and Bronchitis J40 [address] [address] 21 Oct, 2016 Acute mucoid otitis media of both ears H65.113 and Acute non -recurrent maxillary sinusitis J01.00 [facility] [address] [id number] 03 Oct, 2016 Dental examination Z01.20 [place] [address] [address] 10 Sep, 2016 Exposure to influenza Z20.828 and Upper respiratory tract infection, unspecified type J06.9 [facility] [address] [address] Aug, Acute exacerbation of asthma with allergic rhinitis J45.901 [facility] [address] [address] Aug, Burning with urination R30.0 and Hematuria R31.[address] [address] 08 Aug, 2016 Seasonal allergic rhinitis, unspecified allergic rhinitis trigger J30.2 and Dermatitis L30.[address] [address] Jul, Follow up Z09 [address] [place] [address] 15 Jul, 2016 [place] [address] [address] 10 Jul, 2016 Dysuria R30.0 ; Acute vaginitis N76.0 and PID (acute pelvic inflammatory disease) N73.0 [place] [address] [address] 02 Jul, 2016 Sore throat J02.9 [facility] [address] [address] 16 Jun, 2016 Acute otitis externa of both ears, unspecified type H60.503 [facility] [address] [address] May, Sore throat J02.9 and Pharyngitis, unspecified etiology J02.9 [facility] [address] [address] Apr, Dysuria R30.0 [facility] [address] [address] 18 Mar, 2016 Viral infection B34.9 [facility] [address] [address] 07 Mar, 2016 Dermatitis L30.9 [place] [address] [address] 27 Feb, 2016 Annual physical exam Z00.00 and Screen for STD (sexually transmitted disease) Z11.3 [facility] [address] [address] 13 Feb, 2016 Pain with urination R30.9 [place] [address] [address] 03 Feb, 2016 Other seasonal allergic rhinitis J30.2 [place] [address] [address] Nov, Cough R05 and Viral syndrome B34.9 [place] [address] [address] 22 Nov, 2015 Oral contraceptive pill surveillance Z30.41 and Left ovarian cyst N83.20 [place] [address] [address] 16 Nov, 2015 Ovarian cyst N83.20 and Otitis media of both ears H66.[address] [address] 07 Nov, 2015 Sore throat J02.9 and Streptococcal pharyngitis J02.[address] [address] 17 Oct, 2015 Ovarian cyst N83.20 ; Hematuria R31.9 ; Urinary crystals R82.99 ; Left sided abdominal pain R10.9 and Allergic rhinitis J30.[address] [address] 14 Oct, [address] [address] 11 Oct, 2015 Left lower quadrant pain R10.32 ; Dysuria R30.0 ; History of constipation Z87.19 ; Routine screening for STI (sexually transmitted infection) Z11.3 ; CVA tenderness M54.9 ; Lower abdominal tenderness R10.819 ; Vaginal itching L29.8 and Family history of endometriosis Z84.2 [place] [id number] [place] [address] 01 Oct, 2015 Asthma attack 493.92 ; UTI symptoms R39.9 and Sinusitis 473.9 [facility] [address] [id number] 09 Aug, 2015 Dental examination Z01.[address] [address] 30 Jul, 2015 Scabies B86 [address] [address] Jun, Otitis externa of both ears H60.93 [facility] [address] [place] [id number] [place] [address] May, Asthma attack 493.92 [facility] [address] [place] [id number] [place] [address]- [address] Apr, Otitis externa of both ears 380.10 [facility] [address] [place] [id number] [place] [address]- [address] Apr, Insect bite 919.4 [facility] [address] [place] [id number] [place] [address]- [address] Apr, Infective otitis externa 380.10 [facility] [address] [place] [id number] [place] [address]- [address] Mar, Acute sinusitis 461.9 [facility] [address] [place] [id number] [place] [address] Mar, Acute pharyngitis 462 [facility] [address] [place] [id number] [place] [address] Feb, Otitis media of both ears 382.9 [place] [address] [place] [id number] [place] [address]- [address] Feb, Dysuria 788.1 and Urinary tract infection 599.0 [facility] [address] [place] [id number] [place] [address]13- 6[address] Feb, Dysuria 788.1 [facility] [address] [place] [id number] [place] [address]- [address] January, Sinusitis 473.9 [facility] [address] [place] [id number] [place] [address]- [address] Dec, [facility] [address] [place] [id number] [place] [address]- [address] Dec, [facility] [address] [place] [id number] [place] [address] 8[address]52- [address] Nov, [facility] [address] [address] Nov, [facility] [address] [address] Oct, 2014 [facility] [address] [address] Oct, 2014 [facility] [address] [place] [id number] [place] [address]10- [address]6 Oct, 2014 [facility] [address] [place] [address]- [address] Oct, 2014 [facility] [address] [place] [id number] [place] [address] 0[address]99- [address]268 Oct, 2014 [facility] [address] [place] [id number] [place] [address] 0[address]10- [address]142 Oct, 2014 [facility] [id number] [place] [address] 24287- [address]65 Aug, [facility] [id number] [place] [address] 5[address]- [address] Aug, [facility] [address] [address] Aug, [facility] [address] [place] [address] Aug, IMMUNIZATIONS No Known Immunizations SOCIAL HISTORY Never Assessed REASON FOR VISIT mole removal from her back-[place] [facility], PT has a mole on her nose she would like removed as well PLAN OF CARE Activity Details Follow Up 10 days Reason:suture removal VITAL SIGNS Height 59 in 2017-08-28 Weight 88.5 lbs 2017-08-28 Heart Rate 88 bpm 2017-08-28 Respiratory Rate 16 2017-08-28 BMI 17.87 kg/m2 2017-08-28 Blood pressure systolic 110 mmHg 2017-08-28 Blood pressure diastolic 70 mmHg 2017-08-28 MEDICATIONS Medication Instructions Dosage Frequency Start Date End Date Duration Status Zyrtec Allergy 10 mg oral daily 1 tablet 24h Active Azithromycin 250 MG Orally Once a day 2 tablets on the first day, then 1 tablet daily for 4 days 24h 5 day(s) Active PredniSONE 20 mg Orally Once a day 1 tablet 24h Aug, Aug, 05 days Active Flonase 50 mcg/act intranasally daily 1 spary each nostril 24h Aug, Active MiraLax - Orally Once a day 17 grams 24h Aug, Active ProAir HFA 108 (90 Base) mcg/act Inhalation every 4 hrs 2 puffs as needed 4h Aug, Active Singulair 10 MG Orally Once a day 1 tablet in the evening 24h January, Active Depo-Provera 150 MG/ML Active Cipro Not-Taking RESULTS No Results PROCEDURES Procedure Date Ordered Result Body Site BIOPSY SKIN LESION (SINGLE) 2017-08-28 Normal CRYOTHERAPY OF SKIN 2017-08-28 N/A BIOPSY OF SKIN LESION Aug 28, 2017 CRYOTHERAPY OF SKIN Aug 28, 2017 INSTRUCTIONS MEDICATIONS ADMINISTERED No Known Medications MEDICAL (GENERAL) HISTORY Type Description Date Medical History asthma Medical History Seasonal allergies Surgical History myringotomy with ventilating tube x 2 Surgical History [place] teeth removal 09/01/2015
--- OUTSIDE RECORDS SUMMARY | 2018-06-09 21:22 | XMS REPORT ---
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 Name Role Phone JULITO AMOS Unavailable PROBLEMS Type Condition ICD9-CM Code CHE03-HU Code Onset Dates Condition Status SNOMED Code Problem Ovarian cyst N83.20 Active 08099151 Problem Chronic maxillary sinusitis J32.0 Active 14531872 Problem Exacerbation of asthma, unspecified asthma severity, unspecified whether persistent J45.901 Active 220869332 Problem Mild intermittent asthma without complication J45.20 Active 934336233 Problem Seasonal allergic rhinitis, unspecified allergic rhinitis trigger J30.2 Active 744857313 Problem Slow transit constipation K59.01 Active 66503603 Problem GERD (gastroesophageal reflux disease) K21.9 Active 756881618 ALLERGIES Substance Reaction Event Type Date Status SulfADIAZINE Unknown Drug Allergy Jun, Active Penicillin V Potassium Unknown Drug Allergy Jun, Active ENCOUNTERS Encounter Location Date Diagnosis [facility] [address] [address] January, [facility] [address] [address] January, Acute recurrent maxillary sinusitis J01.01 [facility] [address] [place] [id number] [place] [address] Dec, [facility] [address] [address] Dec, Lower abdominal pain R10.30 ; Polyuria R35.8 and Earache symptoms in both ears H92.[address] [facility] [id number] [place] [address] Dec, Gastroenteritis K52.[address] [facility] [address] [address] Dec, Dysuria R30.0 ; Yeast infection of the vagina B37.3 and Shaking R25.1 [place] [address] [place] [id number]- [address] Nov, Exacerbation of asthma, unspecified asthma severity, unspecified whether persistent J45.901 [facility] [place]note 2[facility] [address] [address] Nov, Acute frontal sinusitis, recurrence not specified J01.10 ; Post-nasal drainage R09.82 and Chronic asthma without complication, unspecified asthma severity, unspecified whether persistent J45.909 [facility] [address] [address] Sep, Acute cystitis with hematuria N30.01 and Dysuria R30.0 [facility] [address] [id number] Sep, [place] [address] [address] Sep, Dysuria R30.0 [facility] [address] [id number] Sep, Dental examination Z01.[address] [address] Sep, Encounter for dental examination and cleaning with abnormal findings Z01.21 [facility] [place] [address] [address] Sep, Tooth pain K08.[address] [address] Sep, Nevoid hyperpigmentation L81.9 [place] [address] [address] Aug, Nevoid hyperpigmentation L81.9 [place] [address] [place] [id number] Aug, Sore throat J02.9 ; Bronchitis J40 and Irritated nevus D22.[address] 0[address]853- [address] Aug, Dysuria R30.0 ; Acute cystitis with hematuria N30.01 ; Vaginal yeast infection B37.3 and Slow transit constipation K59.01 [facility] [address] [id number] Jul, [facility] [address] [place] [id number] Jun, Dental examination Z01.20 [facility] [address] [address] Jun, Fluid level behind tympanic membrane of both ears H65.93 [facility] [address] [address] Jun, Potential exposure to STD Z20.2 ; Dysuria R30.0 ; Vaginal discharge N89.8 and Candidiasis of female genitalia B37.[address] [id number] Jun, Dental examination Z01.20 [facility] [address] [place] [id number] May, Dental examination Z01.20 [facility] [address] [id number] May, Dental examination Z01.20 [facility] [address] [place] [id number] May, Dental examination Z01.[address] [address] Apr, Dysfunction of both eustachian tubes H69.83 [facility] [address] [address] Apr, GERD (gastroesophageal reflux disease) K21.9 and Sore throat J02.9 [facility] [address] [id number] [place] [id number] Apr, Dental examination Z01.20 [facility] [id number] [place] [address] Apr, Asthma exacerbation J45.901 [facility] [address] [id number] Mar, Dental examination Z01.20 [facility] [address] [address] [id number] [place] [id number] Feb, Dental examination Z01.[address] [facility] [address] [address] Feb, Middle ear effusion, bilateral H65.93 [place] [id number] [place] [address] Feb, Dysuria R30.0 and Diverticulitis of large intestine without perforation or abscess with bleeding K57.33 [place] [address] [id number] [place] [address]- [address] January, Asthma with acute exacerbation in adult J45.901 [place] [id number] [place] [address] January, Dysuria R30.0 ; Vaginal discharge N89.8 and Acute non- recurrent maxillary sinusitis J01.00 [facility] [id number] [place] [address] Dec, [facility] [id number] [place] [address]- [address] Dec, Sore throat J02.9 ; Acute mucoid otitis media of left ear H65.112 and Acute non-recurrent maxillary sinusitis J01.00 [facility] [id number] [place] [address] Dec, Bronchitis J40 [facility] [id number] [place] [address] Dec, Shortness of breath R06.02 and Mild intermittent asthma without complication J45.20 [place] [address] [address] Nov, Asthma exacerbation J45.901 and Bronchitis J40 [address] [address] Oct, Acute mucoid otitis media of both ears H65.113 and Acute non -recurrent maxillary sinusitis J01.00 [facility] [address] [id number] Oct, 2016 Dental examination Z01.20 [place] [address] [address] 10 Sep, 2016 Exposure to influenza Z20.828 and Upper respiratory tract infection, unspecified type J06.9 [facility] [address] [address] Aug, Acute exacerbation of asthma with allergic rhinitis J45.901 [facility] [address] [address] Aug, Burning with urination R30.0 and Hematuria R31.[address] [address] 08 Aug, 2016 Seasonal allergic rhinitis, unspecified allergic rhinitis trigger J30.2 and Dermatitis L30.[address] [address]- [address] 17 Jul, 2016 Follow up Z09 [place] [address] [address] 15 Jul, [address] [address] 10 Jul, 2016 Dysuria R30.0 ; Acute vaginitis N76.0 and PID (acute pelvic inflammatory disease) N73.0 [place] [id number] [place] [address]- [address] 02 Jul, 2016 Sore throat J02.9 [facility] [place]note 2[facility] [address] [address] Jun, Acute otitis externa of both ears, unspecified type H60.503 [facility] [place] [address] [address] 29 May, 2016 Sore throat J02.9 and Pharyngitis, unspecified etiology J02.9 [facility] [place] [address] [address] Apr, Dysuria R30.0 [facility] [place] [address] [address] 18 Mar, 2016 Viral infection B34.9 [facility] [place] [address] [address] 07 Mar, 2016 Dermatitis L30.9 [place] [address] [address]- [address] 27 Feb, 2016 Annual physical exam Z00.00 and Screen for STD (sexually transmitted disease) Z11.3 [facility] [place] [address] [address] 13 Feb, 2016 Pain with urination R30.9 [place] [address] [address]- [address] 03 Feb, 2016 Other seasonal allergic rhinitis J30.2 [place] [address] [address] Nov, Cough R05 and Viral syndrome B34.9 [place] [address] [address]- [address] Nov, Oral contraceptive pill surveillance Z30.41 and Left ovarian cyst N83.20 [place] [address] [place] [address] 16 Nov, 2015 Ovarian cyst N83.20 and Otitis media of both ears H66.93 [place] [address] [address]- [address] 07 Nov, 2015 Sore throat J02.9 and Streptococcal pharyngitis J02.0 [place] [address] [address]- [address] 17 Oct, 2015 Ovarian cyst N83.20 ; Hematuria R31.9 ; Urinary crystals R82.99 ; Left sided abdominal pain R10.9 and Allergic rhinitis J30.9 [place] [address] [address]- [address] 14 Oct, [address] [address] 11 Oct, 2015 Left lower quadrant pain R10.32 ; Dysuria R30.0 ; History of constipation Z87.19 ; Routine screening for STI (sexually transmitted infection) Z11.3 ; CVA tenderness M54.9 ; Lower abdominal tenderness R10.819 ; Vaginal itching L29.8 and Family history of endometriosis Z84.2 [place] [address] [id number] [place] [address]- [address] 01 Oct, 2015 Asthma attack 493.92 ; UTI symptoms R39.9 and Sinusitis 473.9 [facility] [address] [id number] [place] [address] [id number] Aug, Dental examination Z01.20 [place] [id number] [place] [address] 9[address]69- 8689 Jul, Scabies B86 [place] [address] [address]- [address] Jun, Otitis externa of both ears H60.93 [place] [address] [id number] [place] [address]- [address] 30 May, 2015 Asthma attack 493.92 [place] [address] [id number] [address] Apr, Otitis externa of both ears 380.10 [facility] [id number] [place] [address]- 6100 Apr, Insect bite 919.4 [facility] [id number] [place] [address] 07359- 9101 Apr, Infective otitis externa 380.10 [facility] [id number] [place] [address] 30067- 6718 Mar, Acute sinusitis 461.9 [facility] [id number] [place] [address] 942485- 1647 Mar, Acute pharyngitis 462 [facility] [id number] [place] [address] 56773- 5709 Feb, Otitis media of both ears 382.9 [facility] [id number] [place] [address]13- 9542 Feb, Dysuria 788.1 and Urinary tract infection 599.0 [facility] [id number] [place] [address]88- 9333 Feb, Dysuria 788.1 [facility] [address] [place] [address] 67[address]- 5932 January, Sinusitis 473.9 [facility] [address] [place] [address] 45184- 6542 Dec, [facility] [address] [place] [address] 12065- 7571 Dec, [facility] [id number] [place] [address] 344012- 3470 Nov, [facility] [address] [address] Nov, [facility] [id number] [place] [address] 05640- 1085 Oct, [facility] [address] [id number] [address] Oct, [facility] [address] [place] [address] Oct, [facility] [address] [place] [address] Oct, 2014 [facility] [address] [place] [address] Oct, 2014 [facility] [address] [place] [address] Oct, 2014 [facility] [address] [place] [address] 73233- 5884 Aug, [facility] [address] [address] Aug, [facility] [address] [place] [address] Aug, [facility] [address] [place] [address] Aug, IMMUNIZATIONS No Known Immunizations SOCIAL HISTORY Never Assessed REASON FOR VISIT PAMELA Pain with root canal tooth # 30 PLAN OF CARE Activity Details Follow Up prn Reason:REINA VITAL SIGNS Height 59 in 2017-07-09 Blood pressure systolic 113 mmHg 2017-07-09 Blood pressure diastolic 80 mmHg 2017-07-09 MEDICATIONS Medication Instructions Dosage Frequency Start Date End Date Duration Status Depo-Provera 150 MG/ML Active Clindamycin HCl 150 MG Orally every 6 hrs 2 capsules 6h Jul, 7 days Active Singulair 10 MG Orally Once a day 1 tablet in the evening 24h January, Active Zyrtec Allergy 10mg oral daily 1 tablet 24h Active ProAir HFA 90 mcg/actuation Inhalation every 4 hrs 2 puffs as needed 4h Aug, Active Cipro Active Flonase 50 mcg/actuation intranasally daily 1 spary each nostril 24h Aug Active RESULTS No Results PROCEDURES Procedure Date Ordered Result Body Site LTD ORAL EVALUATION - PROBLEM FOCUS Jul 09, 2017 INTRAORL-PERIAPICAL 1 FILM [id number] Jul 09, 2017 INSTRUCTIONS MEDICATIONS ADMINISTERED No Known Medications MEDICAL (GENERAL) HISTORY Type Description Date Medical History asthma Medical History Seasonal allergies Surgical History myringotomy with ventilating tube x 2 Surgical History Bicknell teeth removal 09/01/2015
--- OUTSIDE RECORDS SUMMARY | 2018-06-09 21:23 | XMS REPORT ---
Author Author ABBY FERNANDEZ Organization [facility] Address [address] [place] [address] Care Team Providers Care Retail Leader Name Role Phone ABBY FERNANDEZ Unavailable PROBLEMS Type Condition ICD9-CM Code FEH72-XD Code Onset Dates Condition Status SNOMED Code Problem Ovarian cyst N83.20 Active 23070859 Problem Chronic maxillary sinusitis J32.0 Active 07770163 Problem Exacerbation of asthma, unspecified asthma severity, unspecified whether persistent J45.901 Active 162398097 Problem Mild intermittent asthma without complication J45.20 Active 646981843 Problem Seasonal allergic rhinitis, unspecified allergic rhinitis trigger J30.2 Active 625174506 Problem Slow transit constipation K59.01 Active 08871912 Problem GERD (gastroesophageal reflux disease) K21.9 Active 748676545 ALLERGIES No Information ENCOUNTERS Encounter Location Date Diagnosis [place] [address] [address] Feb, [place] [address] [address] January, Dysuria R30.0 and Pyelonephritis N12 [address] [address] January, [place] [address] [address] January, Acute recurrent maxillary sinusitis J01.01 [place] [address] [address] Dec, [facility] [address] [address] Dec, Lower abdominal pain R10.30 ; Polyuria R35.8 and Earache symptoms in both ears H92.03 [facility] [address] [address] Dec, Gastroenteritis K52.9 [facility] [place] [id number] Dec, Dysuria R30.0 ; Yeast infection of the vagina B37.3 and Shaking R25.[address] [address] Nov, Exacerbation of asthma, unspecified asthma severity, unspecified whether persistent J45.901 [facility] [address] [address] Nov, Acute frontal sinusitis, recurrence not specified J01.10 ; Post-nasal drainage R09.82 and Chronic asthma without complication, unspecified asthma severity, unspecified whether persistent J45.909 [facility] [address] [address] Sep, Acute cystitis with hematuria N30.01 and Dysuria R30.0 [facility] [address] [id number] Sep, [address] [address] Sep, Dysuria R30.0 [facility] [address] [id number] Sep, Dental examination Z01.20 [place] [address] [address] 08 Sep, 2017 Encounter for dental examination and cleaning with abnormal findings Z01.21 [facility] [address] [place] [address] Sep, Tooth pain K08.[address] [address] Sep, Nevoid hyperpigmentation L81.9 [place] [address] [place] [address] [place] [address] Aug, Nevoid hyperpigmentation L81.9 [place] [address] [address] Aug, Sore throat J02.9 ; Bronchitis J40 and Irritated nevus D22.9 [place] [address] [address] Aug, Dysuria R30.0 ; Acute cystitis with hematuria N30.01 ; Vaginal yeast infection B37.3 and Slow transit constipation K59.01 [facility] [address] [place] [address] Jul, [facility] [address] [id number] Jun, Dental examination Z01.20 [facility] [address] [address] Jun, Fluid level behind tympanic membrane of both ears H65.93 [facility] [address] [address] Jun, Potential exposure to STD Z20.2 ; Dysuria R30.0 ; Vaginal discharge N89.8 and Candidiasis of female genitalia B37.3 [facility] [address] [place] [id number] [place] [id number] Jun, Dental examination Z01.20 [facility] [address] [id number] May, Dental examination Z01.20 [facility] [address] [id number] May, Dental examination Z01.20 [facility] [address] [id number] May, Dental examination Z01.20 [facility] [address] [address] Apr, Dysfunction of both eustachian tubes H69.83 [facility] [address] [place] [id number] [place] [address] Apr, GERD (gastroesophageal reflux disease) K21.9 and Sore throat J02.9 [facility] [address] [place] [id number] [place] [id number] Apr, Dental examination Z01.20 [facility] [address] [address] Apr, Asthma exacerbation J45.901 [facility] [address] [id number] Mar, Dental examination Z01.20 [facility] [address] [id number] Feb, Dental examination Z01.20 [facility] [address] [address] Feb, Middle ear effusion, bilateral H65.93 [facility] [address] [place] [id number] [place] [address] Feb, Dysuria R30.0 and Diverticulitis of large intestine without perforation or abscess with bleeding K57.33 [place] [address] [place] [id number] [place] [address] January, Asthma with acute exacerbation in adult J45.901 [place] [address] [place] [id number] [place] [address] January, Dysuria R30.0 ; Vaginal discharge N89.8 and Acute non- recurrent maxillary sinusitis J01.00 [place] [address] [address] Dec, [place] [address] [address] Dec, Sore throat J02.9 ; Acute mucoid otitis media of left ear H65.112 and Acute non-recurrent maxillary sinusitis J01.00 [facility] [address] [place] [id number] [place] [address] 03 Dec, 2016 Bronchitis J40 [facility] [address] [address] Dec, Shortness of breath R06.02 and Mild intermittent asthma without complication J45.20 [place] [address] [address] Nov, Asthma exacerbation J45.901 and Bronchitis J40 [place] [address] [address] Oct, Acute mucoid otitis media of both ears H65.113 and Acute non -recurrent maxillary sinusitis J01.00 [facility] [address] [id number] Oct, Dental examination Z01.20 [place] [address] [address] Sep, Exposure to influenza Z20.828 and Upper respiratory tract infection, unspecified type J06.9 [facility] [place] [address] [address] [place] [id number] [place] [address] Aug, Acute exacerbation of asthma with allergic rhinitis J45.901 [facility] [place] [address] [address] [place] [id number] [place] [address] Aug, Burning with urination R30.0 and Hematuria R31.[address] [address] 08 Aug, 2016 Seasonal allergic rhinitis, unspecified allergic rhinitis trigger J30.2 and Dermatitis L30.9 [place] [address] [address] 17 Jul, 2016 Follow up Z09 [place] [address] [address] Jul, [place] [address] [address] 10 Jul, 2016 Dysuria R30.0 ; Acute vaginitis N76.0 and PID (acute pelvic inflammatory disease) N73.0 [place] [address] [address] 02 Jul, 2016 Sore throat J02.9 [facility] [address] [address] Jun, Acute otitis externa of both ears, unspecified type H60.503 [facility] [place] [address] [address] May, Sore throat J02.9 and Pharyngitis, unspecified etiology J02.9 [facility] [place] [address] [address] Apr, Dysuria R30.0 [facility] [place] [address] [address] 18 Mar, 2016 Viral infection B34.9 [facility] [address] [address] 07 Mar, 2016 Dermatitis L30.9 [place] [address] [address] 27 Feb, 2016 Annual physical exam Z00.00 and Screen for STD (sexually transmitted disease) Z11.3 [facility] [place] [address] [address] 13 Feb, 2016 Pain with urination R30.9 [place] [address] [address] 03 Feb, 2016 Other seasonal allergic rhinitis J30.2 [place] [address] [address] 29 Nov, 2015 Cough R05 and Viral syndrome B34.9 [place] [address] [address] 22 Nov, 2015 Oral contraceptive pill surveillance Z30.41 and Left ovarian cyst N83.[address] [address] 16 Nov, 2015 Ovarian cyst N83.20 and Otitis media of both ears H66.[address] [address] 07 Nov, 2015 Sore throat J02.9 and Streptococcal pharyngitis J02.[address] [address] 17 Oct, 2015 Ovarian cyst N83.20 ; Hematuria R31.9 ; Urinary crystals R82.99 ; Left sided abdominal pain R10.9 and Allergic rhinitis J30.[address] [address] 14 Oct, [address] [address] 11 Oct, 2015 Left lower quadrant pain R10.32 ; Dysuria R30.0 ; History of constipation Z87.19 ; Routine screening for STI (sexually transmitted infection) Z11.3 ; CVA tenderness M54.9 ; Lower abdominal tenderness R10.819 ; Vaginal itching L29.8 and Family history of endometriosis Z84.2 [place] [id number] [place] [address] 01 Oct, 2015 Asthma attack 493.92 ; UTI symptoms R39.9 and Sinusitis 473.9 [facility] [address] [place] [id number] [place] [id number] 09 Aug, 2015 Dental examination Z01.[address] [address] 30 Jul, 2015 Scabies B86 [place] [address] [place] [id number] [place] [address] Jun, Otitis externa of both ears H60.93 [facility] [address] [address] May, Asthma attack 493.92 [facility] [address] [place] [id number] [place] [address] Apr, Otitis externa of both ears 380.10 [facility] [address] [place] [id number] [place] [address] Apr, Insect bite 919.4 [facility] [address] [place] [id number] [place] [address] Apr, Infective otitis externa 380.10 [facility] [address] [place] [id number] [place] [address] Mar, Acute sinusitis 461.9 [facility] [address] [place] [id number] [place] [address]- 2014 Mar, Acute pharyngitis 462 [facility] [address] [place] [id number] [place] [address] Feb, Otitis media of both ears 382.9 [facility] [address] [place] [id number] [place] [address] Feb, Dysuria 788.1 and Urinary tract infection 599.0 [facility] [id number] [place] [address] Feb, Dysuria 788.1 [facility] [address] [place] [id number] [place] [address] January, Sinusitis 473.9 [facility] [address] [place] [id number] [place] [address] Dec, [facility] [address] [place] [id number] [place] [address] 7[address]- [address] Dec, [facility] [address] [address] Nov, [facility] [address] [place] [id number] [address] Nov, [facility] [id number] [place] [address] Oct, 2014 [facility] [id number] Oct, 2014 [facility] [address] Oct, 2014 [facility] [address] [place] [address] Oct, 2014 [facility] [address] [address] Oct, [facility] [address] [place] [address] Oct, 2014 [facility] [address] [address] Aug, [facility] [id number] [address] Aug, [facility] [address] [place] [address] Aug, [facility] [id number] [address] Aug, IMMUNIZATIONS No Known Immunizations SOCIAL HISTORY Never Assessed REASON FOR VISIT Suture removal - CODI Bearden PLAN OF CARE VITAL SIGNS MEDICATIONS Unknown Medications RESULTS No Results PROCEDURES Procedure Date Ordered Result Body Site SUTURE REMOVAL 2017-09-12 N/A REMOV SUTS; NOT WHO CLOS WND Sep 12, 2017 INSTRUCTIONS MEDICATIONS ADMINISTERED No Known Medications MEDICAL (GENERAL) HISTORY Type Description Date Medical History asthma Medical History Seasonal allergies Surgical History myringotomy with ventilating tube x 2 Surgical History [place] teeth removal 09/01/2015
--- OUTSIDE RECORDS SUMMARY | 2018-06-09 21:23 | XMS REPORT ---
Author Author NEISHA ARCE Kadi [facility] Address Unknown Care Team Providers Care Personal Injury Law Specialist Name Role Phone NEISHA ARCE Unavailable PROBLEMS Type Condition ICD9-CM Code AWK10-JL Code Onset Dates Condition Status SNOMED Code Problem Exacerbation of asthma, unspecified asthma severity, unspecified whether persistent J45.901 Active 767117948 Problem Slow transit constipation K59.01 Active 18541755 Problem Seasonal allergic rhinitis, unspecified allergic rhinitis trigger J30.2 Active 603360008 Problem Ovarian cyst N83.20 Active 75594661 Problem GERD (gastroesophageal reflux disease) K21.9 Active 887094380 Problem Mild intermittent asthma without complication J45.20 Active 795171365 ALLERGIES Substance Reaction Event Type Date Status Penicillin V Potassium Unknown Drug Allergy May, Active ENCOUNTERS Encounter Location Date Diagnosis [place] [id number] [place] [address]34 Dec, [address] [address] Dec, Lower abdominal pain R10.30 ; Polyuria R35.8 and Earache symptoms in both ears H92.03 [facility] [id number] [place] [address]9976 Dec, Gastroenteritis K52.9 [facility] [address] [place] [address]98 [address]9978 Dec, Dysuria R30.0 ; Yeast infection of the vagina B37.3 and Shaking R25.1 [facility] [address] [address] Nov, Exacerbation of asthma, unspecified asthma severity, unspecified whether persistent J45.901 [facility] [address] [address]703 Nov, Acute frontal sinusitis, recurrence not specified J01.10 ; Post-nasal drainage R09.82 and Chronic asthma without complication, unspecified asthma severity, unspecified whether persistent J45.909 [facility] [place] [id number] [place] [address]38 Sep, Acute cystitis with hematuria N30.01 and Dysuria R30.0 [facility] [address] [id number] Sep, [place] [address] [address] Sep, Dysuria R30.0 [facility] [address] [id number] Sep, Dental examination Z01.[address] [address]- [address] 08 Sep, 2017 Encounter for dental examination and cleaning with abnormal findings Z01.21 [facility] [place] [address] [address] Sep, Tooth pain K08.89 [place] [address] [address]57[address]95 Sep, Nevoid hyperpigmentation L81.9 [place] [id number] [place] [address]47- 4567 Aug, Nevoid hyperpigmentation L81.9 [place] [id number] [place] [address] 60263- 4792 Aug, Sore throat J02.9 ; Bronchitis J40 and Irritated nevus D22.9 [place] [id number] [place] [address] 78686- 9633 Aug, Dysuria R30.0 ; Acute cystitis with hematuria N30.01 ; Vaginal yeast infection B37.3 and Slow transit constipation K59.01 [facility] [id number] [place] [address] [id number] Jul, [facility] [address] [id number] [place] [address] [id number] Jun, Dental examination Z01.20 [facility] [id number] [place] [address] 18554 [address]8892 Jun, Fluid level behind tympanic membrane of both ears H65.93 [facility] [address] 39[address] Jun, Potential exposure to STD Z20.2 ; Dysuria R30.0 ; Vaginal discharge N89.8 and Candidiasis of female genitalia B37.3 [facility] [address] [id number] Jun, Dental examination Z01.20 [facility] [address] [id number] May, Dental examination Z01.20 [facility] [address] [id number] May, Dental examination Z01.20 [facility] [address] [id number] May, Dental examination Z01.20 [facility] [id number] [place] [address] 40403- 0411 Apr, Dysfunction of both eustachian tubes H69.83 [facility] [id number] [place] [address] 25980 -5715 15 Apr, 2017 GERD (gastroesophageal reflux disease) K21.9 and Sore throat J02.9 [facility] [address] [id number] Apr, Dental examination Z01.20 [facility] [id number] [place] [address] 77461- 1779 07 Apr, 2017 Asthma exacerbation J45.901 [facility] [address] [place] [id number] Mar, Dental examination Z01.20 [facility] [id number] [place] [address] [id number] Feb, Dental examination Z01.20 [facility] [id number] [place] [address] 95775 -7338 24 Feb, 2017 Middle ear effusion, bilateral H65.93 [place] [address] 98[address]- [address]60 Feb, Dysuria R30.0 and Diverticulitis of large intestine without perforation or abscess with bleeding K57.33 [place] [address] 44[address] January, Asthma with acute exacerbation in adult J45.901 [place] [address] 81268- 8943 January, Dysuria R30.0 ; Vaginal discharge N89.8 and Acute non- recurrent maxillary sinusitis J01.00 [place] [id number] [place] [address] 56753- 3437 Dec, [place] [address] 14441[address]101 Dec, Sore throat J02.9 ; Acute mucoid otitis media of left ear H65.112 and Acute non-recurrent maxillary sinusitis J01.00 [place] [id number] [place] [address] 81788- 6141 Dec, Bronchitis J40 [facility] [id number] [place] [address] 93710 -9417 Dec, Shortness of breath R06.02 and Mild intermittent asthma without complication J45.20 [facility] [id number] [place] [address] 34137- 2214 Nov, Asthma exacerbation J45.901 and Bronchitis J40 [place] [address] [address]245- 5116 21 Oct, 2016 Acute mucoid otitis media of both ears H65.113 and Acute non -recurrent maxillary sinusitis J01.00 [facility] [address] [id number] Oct, 2016 Dental examination Z01.20 [place] [address] 81255- [address]79 10 Sep, 2016 Exposure to influenza Z20.828 and Upper respiratory tract infection, unspecified type J06.9 [facility] [address] [address] 27 Aug, 2016 Acute exacerbation of asthma with allergic rhinitis J45.901 [facility] [address] 24972 [address]651 15 Aug, 2016 Burning with urination R30.0 and Hematuria R31.[address] [address]07- [address]31 08 Aug, 2016 Seasonal allergic rhinitis, unspecified allergic rhinitis trigger J30.2 and Dermatitis L30.[address] 84903- 6359 17 Jul, 2016 Follow up Z09 [place] [address] 06696- 3597 15 Jul, 2016 [place] [address] 18192- 9997 10 Jul, 2016 Dysuria R30.0 ; Acute vaginitis N76.0 and PID (acute pelvic inflammatory disease) N73.[address] 08363- 9390 02 Jul, 2016 Sore throat J02.9 [facility] [address] 12579 [address]40 16 Jun, 2016 Acute otitis externa of both ears, unspecified type H60.503 [facility] [address] [address]79 [address]58 May, Sore throat J02.9 and Pharyngitis, unspecified etiology J02.9 [facility] [place] [address] 18621 [address]5840 Apr, Dysuria R30.0 [facility] [place] [address] 40527 [address]7738 Mar, Viral infection B34.9 [facility] [place] [address] 18733 [address]4714 07 Mar, 2016 Dermatitis L30.9 [place] [address] 31441- 6058 27 Feb, 2016 Annual physical exam Z00.00 and Screen for STD (sexually transmitted disease) Z11.3 [facility] [address] 308[address]0068 13 Feb, 2016 Pain with urination R30.9 [place] [address] 24127- 2191 03 Feb, 2016 Other seasonal allergic rhinitis J30.2 [place] [address] 84363- 6860 29 Nov, 2015 Cough R05 and Viral syndrome B34.9 [place] [address] 55394- 8478 22 Nov, 2015 Oral contraceptive pill surveillance Z30.41 and Left ovarian cyst N83.20 [place] [address] 28990- 5928 16 Nov, 2015 Ovarian cyst N83.20 and Otitis media of both ears H66.93 [place] [address] 41007- 8519 07 Nov, 2015 Sore throat J02.9 and Streptococcal pharyngitis J02.0 [place] [address] 84929- 1432 17 Oct, 2015 Ovarian cyst N83.20 ; Hematuria R31.9 ; Urinary crystals R82.99 ; Left sided abdominal pain R10.9 and Allergic rhinitis J30.9 [place] [address] 42242- 7496 14 Oct, 2015 [place] [address] [address]19- 7987 11 Oct, 2015 Left lower quadrant pain R10.32 ; Dysuria R30.0 ; History of constipation Z87.19 ; Routine screening for STI (sexually transmitted infection) Z11.3 ; CVA tenderness M54.9 ; Lower abdominal tenderness R10.819 ; Vaginal itching L29.8 and Family history of endometriosis Z84.2 [place] [address] 11799- 4218 01 Oct, 2015 Asthma attack 493.92 ; UTI symptoms R39.9 and Sinusitis 473.9 [facility] [address] [id number] Aug, Dental examination Z01.20 [place] [address] 21771- 3017 Jul, Scabies B86 [place] [address] 00012- 9399 Jun, Otitis externa of both ears H60.[address] 50800- 4206 May, Asthma attack 493.92 [place] [address] 20177- 2476 Apr, Otitis externa of both ears 380.10 [place] [address] 50101- 6065 Apr, Insect bite 919.[address] 51396- 4853 Apr, Infective otitis externa 380.10 [facility] [address] [address] Mar, Acute sinusitis 461.9 [facility] [address] [address] 2546 Mar, Acute pharyngitis 462 [facility] [address] [address] 2546 Feb, Otitis media of both ears 382.9 [facility] [address] [address] 2546 Feb, Dysuria 788.1 and Urinary tract infection 599.0 [facility] [id number] [place] [address] 08523- 6316 Feb, Dysuria 788.1 [facility] [address] [address] January, Sinusitis 473.9 [facility] [address] [address]- 3772 Dec, [facility] [address] [address]- 6666 Dec, [facility] [address] [address]- 6068 Nov, [facility] [address] [address]- 0896 Nov, [facility] [address] [address]- 8557 Oct, [facility] [address] [address] Oct, [facility] [address] [address] Oct, [facility] [address] [place] [id number] [address] Oct, [facility] [address] [facility] [id number] [address] Oct, [facility] [address] [facility] [id number] [address]- 76[address] Oct, [facility] [address] [facility] [id number] [address]- 79[address] Aug, [facility] [address] [facility] [id number] [address] Aug, [facility] [address] [facility] [id number] [address]- 4046 Aug, [facility] [address] [facility] [id number] [address] Aug, IMMUNIZATIONS No Known Immunizations SOCIAL HISTORY Never Assessed REASON FOR VISIT [place] PLAN OF CARE Activity Details Follow Up prn Reason:if pain continues, has apt for crown VITAL SIGNS MEDICATIONS Medication Instructions Dosage Frequency Start Date End Date Duration Status Depo-Provera 150 MG/ML Active Zyrtec Allergy 10mg oral daily 1 tablet 24h Active Flonase 50 mcg/actuation intranasally daily 1 spary each nostril 24h Aug Active Singulair 10 MG Orally Once a day 1 tablet in the evening 24h January, Active ProAir HFA 90 mcg/actuation Inhalation every 4 hrs 2 puffs as needed 4h Aug, Active RESULTS No Results PROCEDURES Procedure Date Ordered Result Body Site LTD ORAL EVALUATION - PROBLEM FOCUS Jun 08, 2017 Dental no charge Jun 08, 2017 Billing Notes on claim Jun 08, 2017 INSTRUCTIONS MEDICATIONS ADMINISTERED No Known Medications MEDICAL (GENERAL) HISTORY Type Description Date Medical History asthma Medical History Seasonal allergies Surgical History myringotomy with ventilating tube x 2 Surgical History [place] teeth removal 09/01/2015
--- OUTSIDE RECORDS SUMMARY | 2018-06-09 21:23 | XMS REPORT ---
Author Author NEISHA ARCE Kadi [facility] Address Unknown Care Team Providers Care Health Insurance Agent Name Role Phone NEISHA ARCE Unavailable PROBLEMS Type Condition ICD9-CM Code KSM38-ME Code Onset Dates Condition Status SNOMED Code Problem Exacerbation of asthma, unspecified asthma severity, unspecified whether persistent J45.901 Active 143834244 Problem Slow transit constipation K59.01 Active 00915497 Problem Seasonal allergic rhinitis, unspecified allergic rhinitis trigger J30.2 Active 639271130 Problem Ovarian cyst N83.20 Active 95748372 Problem GERD (gastroesophageal reflux disease) K21.9 Active 427125868 Problem Mild intermittent asthma without complication J45.20 Active 093402275 ALLERGIES Substance Reaction Event Type Date Status Penicillin V Potassium Unknown Drug Allergy May, Active ENCOUNTERS Encounter Location Date Diagnosis [place] [address] [id number] [place] [address] Dec, [address] [address] Dec, Lower abdominal pain R10.30 ; Polyuria R35.8 and Earache symptoms in both ears H92.03 [facility] [id number] [place] [address] Dec, Gastroenteritis K52.9 [facility] [address] [place] [address] Dec, Dysuria R30.0 ; Yeast infection of the vagina B37.3 and Shaking R25.1 [facility] [address] [address] Nov, Exacerbation of asthma, unspecified asthma severity, unspecified whether persistent J45.901 [facility] [address] [address] Nov, Acute frontal sinusitis, recurrence not specified J01.10 ; Post-nasal drainage R09.82 and Chronic asthma without complication, unspecified asthma severity, unspecified whether persistent J45.909 [facility] [place] [id number] [place] [address] Sep, Acute cystitis with hematuria N30.01 and Dysuria R30.0 [facility] [address] [id number] Sep, [place] [address] [address] Sep, Dysuria R30.0 [facility] Critical access hospital N [address] [id number] Sep, Dental examination Z01.[address] [address] 08 Sep, 2017 Encounter for dental examination and cleaning with abnormal findings Z01.21 [facility] [place] [address] [address] Sep, Tooth pain K08.89 [place] [address] [address] Sep, Nevoid hyperpigmentation L81.9 [place] [id number] [place] [address] 17148[address] 4955 Aug, Nevoid hyperpigmentation L81.9 [place] [id number] [place] [address] Aug, Sore throat J02.9 ; Bronchitis J40 and Irritated nevus D22.9 [place] [id number] [place] [address] Aug, Dysuria R30.0 ; Acute cystitis with hematuria N30.01 ; Vaginal yeast infection B37.3 and Slow transit constipation K59.01 [facility] [id number] [place] [address] [id number] [phone] Jul, [facility] [address] [place] [id number] [place] [id number] Jun, Dental examination Z01.20 [facility] [id number] [place] [address] Jun, Fluid level behind tympanic membrane of both ears H65.93 [facility] [address] [address] Jun, Potential exposure to STD Z20.2 ; Dysuria R30.0 ; Vaginal discharge N89.8 and Candidiasis of female genitalia B37.3 [facility] [address] [id number] Jun, Dental examination Z01.20 [facility] [address] [id number] May, Dental examination Z01.20 [facility] [address] [id number] May, Dental examination Z01.20 [facility] [address] [id number] May, Dental examination Z01.20 [facility] [id number] [place] [address] Apr, Dysfunction of both eustachian tubes H69.83 [facility] [id number] [place] [address] 95[address]6593 15 Apr, 2017 GERD (gastroesophageal reflux disease) K21.9 and Sore throat J02.9 [facility] [address] [id number] Apr, Dental examination Z01.20 [facility] [id number] [place] [address] 36775[address] 36[address] 07 Apr, 2017 Asthma exacerbation J45.901 [facility] [address] [place] [id number] Mar, Dental examination Z01.20 [facility] [id number] [place] [address] [id number] Feb, Dental examination Z01.20 [facility] [id number] [place] [address] 83713 [address] 24 Feb, 2017 Middle ear effusion, bilateral H65.93 [place] [address] [address] Feb, Dysuria R30.0 and Diverticulitis of large intestine without perforation or abscess with bleeding K57.33 [place] [address] [address]67[address] January, Asthma with acute exacerbation in adult J45.901 [place] [address] [address] January, Dysuria R30.0 ; Vaginal discharge N89.8 and Acute non- recurrent maxillary sinusitis J01.00 [place] [id number] [place] [address] 20445[address] 3[address] Dec, [place] [address] [address] Dec, Sore throat J02.9 ; Acute mucoid otitis media of left ear H65.112 and Acute non-recurrent maxillary sinusitis J01.00 [place] [id number] [place] [address] 18487- 6804 Dec, Bronchitis J40 [facility] [id number] [place] [address] Dec, Shortness of breath R06.02 and Mild intermittent asthma without complication J45.20 [facility] [id number] [place] [address] 72536[address] 3432 Nov, Asthma exacerbation J45.901 and Bronchitis J40 [place] [address] 9[address] 21 Oct, 2016 Acute mucoid otitis media of both ears H65.113 and Acute non -recurrent maxillary sinusitis J01.00 [facility] [address] [id number] 03 Oct, 2016 Dental examination Z01.20 [place] [address] [address] 10 Sep, 2016 Exposure to influenza Z20.828 and Upper respiratory tract infection, unspecified type J06.9 [facility] [address] [address] 27 Aug, 2016 Acute exacerbation of asthma with allergic rhinitis J45.901 [facility] [address] 26[address] 15 Aug, 2016 Burning with urination R30.0 and Hematuria R31.[address] [address] 08 Aug, 2016 Seasonal allergic rhinitis, unspecified allergic rhinitis trigger J30.2 and Dermatitis L30.[address] 17168- 8878 17 Jul, 2016 Follow up Z09 [place] [address] [address]486[address] 15 Jul, 2016 [place] [address] [address] 10 Jul, 2016 Dysuria R30.0 ; Acute vaginitis N76.0 and PID (acute pelvic inflammatory disease) N73.[address] [address]24[address] 02 Jul, 2016 Sore throat J02.9 [facility] [address] 7[address] 16 Jun, 2016 Acute otitis externa of both ears, unspecified type H60.503 [facility] [address] [address] May, Sore throat J02.9 and Pharyngitis, unspecified etiology J02.9 [facility] [place] [address] 39[address] Apr, Dysuria R30.0 [facility] [place] [address] 0[address] Mar, Viral infection B34.9 [facility] [place] [address] 40[address]79[address] 07 Mar, 2016 Dermatitis L30.9 [place] [address] [address] 27 Feb, 2016 Annual physical exam Z00.00 and Screen for STD (sexually transmitted disease) Z11.3 [facility] [address] 294[address] 13 Feb, 2016 Pain with urination R30.9 [place] [address] 26884[address] 4[address] 03 Feb, 2016 Other seasonal allergic rhinitis J30.2 [place] [address] 87751[address] 5[address] 29 Nov, 2015 Cough R05 and Viral syndrome B34.9 [place] [address] 77257- 1521 22 Nov, 2015 Oral contraceptive pill surveillance Z30.41 and Left ovarian cyst N83.20 [place] [address] 75[address] 16 Nov, 2015 Ovarian cyst N83.20 and Otitis media of both ears H66.93 [place] [address] [address]56[address] 8[address] 07 Nov, 2015 Sore throat J02.9 and Streptococcal pharyngitis J02.0 [place] [address] [address] 17 Oct, 2015 Ovarian cyst N83.20 ; Hematuria R31.9 ; Urinary crystals R82.99 ; Left sided abdominal pain R10.9 and Allergic rhinitis J30.9 [place] [address] 408[address] 14 Oct, 2015 [place] [address] 13148[address] 4955 11 Oct, 2015 Left lower quadrant pain R10.32 ; Dysuria R30.0 ; History of constipation Z87.19 ; Routine screening for STI (sexually transmitted infection) Z11.3 ; CVA tenderness M54.9 ; Lower abdominal tenderness R10.819 ; Vaginal itching L29.8 and Family history of endometriosis Z84.2 [place] [address] [address] 01 Oct, 2015 Asthma attack 493.92 ; UTI symptoms R39.9 and Sinusitis 473.9 [facility] [address] [id number] Aug, Dental examination Z01.20 [place] [address] 47197[address]797 Jul, Scabies B86 [place] [address] 84760[address] Jun, Otitis externa of both ears H60.[address] [address]76[address] May, Asthma attack 493.92 [place] [address] 41742- 4[address] Apr, Otitis externa of both ears 380.10 [place] [address] [address]47[address]87 Apr, Insect bite 919.[address] 07194- 7232 Apr, Infective otitis externa 380.10 [facility] [address] [address] Mar, Acute sinusitis 461.9 [facility] [address] [address] 2546 Mar, Acute pharyngitis 462 [facility] [address] [address] 2546 Feb, Otitis media of both ears 382.9 [facility] [address] [address] 2546 Feb, Dysuria 788.1 and Urinary tract infection 599.0 [facility] [address] [place] [address] 7[address]10- 3[address] Feb, Dysuria 788.1 [facility] [address] [address] January, Sinusitis 473.9 [facility] [address] [address] Dec, [facility] [address] [address] Dec, [facility] [address] [address] Nov, [facility] [address] [address] Nov, [facility] [address] [address] Oct, [facility] [address] [address] Oct, [facility] [address] [address] Oct, [facility] [address] [place] [id number] [address] Oct, [facility] [address] [facility] [id number] [address] Oct, [facility] [address] [place] [address] [id number] [address] Oct, [facility] [address] [place] [address] [id number] [address] Aug, [facility] [address] [place] [address] [id number] [address] Aug, [facility] [address] [facility] [id number] [address] Aug, [facility] [address] [place] [address] [id number] [address] Aug, IMMUNIZATIONS No Known Immunizations SOCIAL HISTORY Never Assessed REASON FOR VISIT finish endo #30 PLAN OF CARE Activity Details Follow Up 1 Week Reason:FINISH ENDO VITAL SIGNS Blood pressure systolic 106 mmHg 2017-05-22 Blood pressure diastolic 51 mmHg 2017-05-22 MEDICATIONS Medication Instructions Dosage Frequency Start Date [...] 2 puffs as needed 4h Aug, Active Ranitidine HCl 150 MG Orally Once a day 1 tablet at bedtime 24h Apr, 30 day(s) Active RESULTS No Results PROCEDURES Procedure Date Ordered Result Body Site Dental no charge May 22, 2017 INSTRUCTIONS MEDICATIONS ADMINISTERED No Known Medications MEDICAL (GENERAL) HISTORY Type Description Date Medical History asthma Medical History Seasonal allergies Surgical History myringotomy with ventilating tube x 2 Surgical History [place] teeth removal 09/01/2015
--- NOTE | 2018-06-09 21:24 | ED Abdominal Pain ---
General Stated Complaint: ABD PAIN Source of Information: Patient Exam Limitations: No Limitations History of Present Illness Date Seen by Provider: Jun 09, 2018 Time Seen by Provider: 21:23 Initial Comments To ER with severe intermittent sharp right upper quadrant abdominal pain for the past 3 days. She does have associated nausea. She cannot identify any aggravating or alleviating factors. She last ate chicken and noodles about 30 minutes ago states that it was not hurting as bad at that time and got much worse after eating. No fevers and chills. No cough. Timing/Duration: 2-3 Days Severity/Quality: Severe, Sharp Location: RUQ Radiation: No Radiation Associated Symptoms: No Fever/Chills; Nausea/Vomiting Allergies and Home Medications Allergies Coded Allergies: Penicillins (Unverified Allergy, Unknown, 05/12/15) Uncoded Allergies: SULFA (Adverse Reaction, Unknown, N/V, 05/16/17) Home Medications Cefuroxime Axetil 250 Mg Tablet, 250 MG PO BID Prescribed by: LEO MOSER on 07/26/171951 Cetirizine HCl 10 Mg Capsule, 10 MG PO DAILY, (Reported) D-Methorphan Hb/P-Epd HCl/Bpm 118 Ml Syrup, 5 ML PO Q6H PRN for CONGESTION Prescribed by: LEO MOSER on 07/26/171951 Metronidazole 500 Mg Tablet, 500 MG PO BID Prescribed by: BELINDA CUELLAR on 12/15/172133 Montelukast Sodium 10 Mg Tablet, 10 MG PO DAILY, (Reported) Phenazopyridine HCl 100 Mg Tablet, 100 MG PO Q6H PRN for PAIN-MILD TO MODERATE Prescribed by: BELINDA CUELLAR on 12/15/172133 Patient Home Medication List Home Medication List Reviewed: Yes Review of Systems Review of Systems Constitutional: see HPI; No chills, No fever EENTM: No Symptoms Reported Respiratory: No Symptoms Reported Cardiovascular: No Symptoms Reported Gastrointestinal: See HPI, Abdominal Pain; Denies Constipated, Denies Diarrhea ; Nausea; Denies Vomiting Genitourinary: No Symptoms Reported Musculoskeletal: no symptoms reported Skin: no symptoms reported Psychiatric/Neurological: No Symptoms Reported Endocrine: No Symptoms Reported Past Iuhgcsn-Yijwve-Zpowjt Hx Patient Social History Type Used: Cigarettes 2nd Hand Smoke Exposure: No Recent Foreign Travel: No Contact w/Someone Who Travel: No Recent Hopitalizations: No Immunizations Up To Date Tetanus Booster (TDap): Less than 5yrs Seasonal Allergies Seasonal Allergies: Yes Past Medical History Surgeries: Yes (TUBES IN EARS ) Respiratory: Yes Asthma Cardiac: No Neurological: No Reproductive Disorders: No Sexually Transmitted Disease: No Gastrointestinal: No Musculoskeletal: No Fractures Endocrine: No Cancer: No Psychosocial: No Integumentary: No Blood Disorders: No Family Medical History No Pertinent Family Hx Physical Exam Vital Signs Capillary Refill : Height/Weight/BMI Height: 4'11.00" Weight: 80lbs. 12oz. 36.095631bo; 16.16 BMI Method:Stated General Appearance: WD/WN, no apparent distress HEENT: PERRL/EOMI, normal ENT inspection Neck: non-tender, full range of motion Respiratory: normal breath sounds, no respiratory distress, no accessory muscle use Cardiovascular: regular rate, rhythm, no murmur Gastrointestinal: normal bowel sounds, soft, tenderness (right upper quadrant) Extremities: normal range of motion, non-tender Neurologic/Psychiatric: alert, normal mood/affect, oriented x 3 Skin: normal color, warm/dry Progress/Results/Core Measures Results/Orders Lab Results Laboratory Tests Test 06/09/18 21:15 06/09/18 21:20 Range/Units Urine Color YELLOW Urine Clarity SLIGHTLY CLOUDY Urine pH 8 5-9 Urine Specific [place] 1.010 L 1.016-1.022 Urine Protein 1+ H NEGATIVE Urine Glucose (UA) NEGATIVE NEGATIVE Urine Ketones NEGATIVE NEGATIVE Urine Nitrite NEGATIVE NEGATIVE Urine Bilirubin NEGATIVE NEGATIVE Urine Urobilinogen NORMAL NORMAL MG/DL Urine Leukocyte Esterase 1+ H NEGATIVE Urine RBC (Auto) NEGATIVE NEGATIVE Urine RBC NONE /HPF Urine WBC 2-5 /HPF Urine Squamous Epithelial Cells 2-5 /HPF Urine Crystals NONE /LPF Urine Bacteria LARGE H /HPF Urine Casts NONE /LPF Urine Mucus MODERATE H /LPF Urine Culture Indicated YES White Blood Count 10.1 4.3-11.0 10^3/uL Red Blood Count 4.33 L 4.35-5.85 10^6/uL Hemoglobin 13.6 11.5-16.0 G/DL Hematocrit 39 35-52 % Mean Corpuscular Volume 89 80-99 FL Mean Corpuscular Hemoglobin 31 25-34 PG Mean Corpuscular Hemoglobin Concent 35 32-36 G/DL Red Cell Distribution Width 12.6 10.0-14.5 % Platelet Count 204 130-400 10^3/uL Mean Platelet Volume 9.7 7.4-10.4 FL Neutrophils (%) (Auto) 58 42-75 % Lymphocytes (%) (Auto) 33 12-44 % Monocytes (%) (Auto) 8 0-12 % Eosinophils (%) (Auto) 1 0-10 % Basophils (%) (Auto) 0 0-10 % Neutrophils # (Auto) 5.8 1.8-7.8 X 10^3 Lymphocytes # (Auto) 3.3 1.0-4.0 X 10^3 Monocytes # (Auto) 0.8 0.0-1.0 X 10^3 Eosinophils # (Auto) 0.1 0.0-0.3 10^3/uL Basophils # (Auto) 0.0 0.0-0.1 10^3/uL Sodium Level 138 135-145 MMOL/L Potassium Level 4.1 3.6-5.0 MMOL/L Chloride Level 104 98-107 MMOL/L Carbon Dioxide Level 22 21-32 MMOL/L Anion Gap 12 5-14 MMOL/L Blood Urea Nitrogen 12 7-18 MG/DL Creatinine 0.69 0.60-1.30 MG/DL Estimat Glomerular Filtration Rate > 60 BUN/Creatinine Ratio 17 Glucose Level 96 70-105 MG/DL Calcium Level 9.3 8.5-10.1 MG/DL Corrected Calcium 8.5-10.1 MG/DL Total Bilirubin 0.3 0.1-1.0 MG/DL Aspartate Amino Transf (AST/SGOT) 25 5-34 U/L Alanine Aminotransferase (ALT/SGPT) 15 0-55 U/L Alkaline Phosphatase 84 40-136 U/L Total Protein 7.6 6.4-8.2 GM/DL Albumin 4.6 H 3.2-4.5 GM/DL Lipase 70 8-78 U/L Serum Test, Qualitative NEGATIVE NEGATIVE My Orders Orders - LEO MOSER APRN Cbc With Automated Diff (06/09/18 21:21) Comprehensive Metabolic Panel (06/09/18 21:21) Ua Culture If Indicated (06/09/18 21:21) Lipase (06/09/18 21:21) Hcg,Qualitative Serum (06/09/18 21:21) Iv Heplock-Insert (Order) (06/09/18 21:21) Ondansetron Injection (Zofran Injectio (06/09/18 21:30) Ketorolac Injection (Toradol Injection) (06/09/18 21:30) Acute Abd Series (06/09/18 21:26) Urine Culture (06/09/18 21:15) Medications Given in ED Current Medications Medications Dose Ordered Sig/Mikey Route Start Time Stop Time Status Last Admin Dose Admin Ketorolac Tromethamine 15 mg ONCE ONCE IVP 06/09/18 21:30 06/09/18 21:31 DC 06/09/18 21:28 15 MG Ondansetron HCl 4 mg ONCE ONCE IVP 06/09/18 21:30 06/09/18 21:31 DC 06/09/18 21:26 4 MG Departure Impression Primary Impression: RUQ abdominal pain Additional Impression: Constipation Disposition: 01 HOME, SELF-CARE Condition: Stable Departure-Patient Inst. Decision time for Depature: 22:22 Referrals: [facility] (PCP) Primary Care Physician IVETH BENDER (Family) Primary Care Physician Patient Instructions: Constipation, Adult (DC) Add. Discharge Instructions: 1. Follow-up with your primary care provider if this pain does not resolve within 48 hours. Return to ER for any fevers or intolerable pain. Go home and mix 5 packets or capfuls of MiraLAX in a bottle of Gatorade and drank this over about 2 hours. LEO MOSER APRN Jun 09, 2018 21:24
--- OUTSIDE RECORDS SUMMARY | 2018-06-09 21:24 | XMS REPORT ---
Author Author ELLIE BURDEN Organization [facility] Address [address] [place] [address] Care Team Providers Care Dental Prosthetist Name Role Phone JENISE ELLIE Unavailable PROBLEMS Type Condition ICD9-CM Code ZAX65-ZI Code Onset Dates Condition Status SNOMED Code Problem Ovarian cyst N83.20 Active 38332957 Problem Chronic maxillary sinusitis J32.0 Active 05784205 Problem Exacerbation of asthma, unspecified asthma severity, unspecified whether persistent J45.901 Active 039211847 Problem Mild intermittent asthma without complication J45.20 Active 291354880 Problem Seasonal allergic rhinitis, unspecified allergic rhinitis trigger J30.2 Active 734816104 Problem Slow transit constipation K59.01 Active 27824683 Problem GERD (gastroesophageal reflux disease) K21.9 Active [id number] ALLERGIES No Information ENCOUNTERS Encounter Location Date Diagnosis [place] [address] [address] Feb, [place] [address] [address] January, Dysuria R30.0 and Pyelonephritis N12 [place] [address] [address] January, [place] [address] [address] January, Acute recurrent maxillary sinusitis J01.01 [place] [address] [address] Dec, [place] [address] [address] Dec, Lower abdominal pain R10.30 ; Polyuria R35.8 and Earache symptoms in both ears H92.03 [facility] [address] [place] [address] 12 Dec, 2017 Gastroenteritis K52.9 [facility] [address] [address] Dec, Dysuria R30.0 ; Yeast infection of the vagina B37.3 and Shaking R25.[address] [address] Nov, Exacerbation of asthma, unspecified asthma severity, unspecified whether persistent J45.901 [facility] [address] [address] Nov, Acute frontal sinusitis, recurrence not specified J01.10 ; Post-nasal drainage R09.82 and Chronic asthma without complication, unspecified asthma severity, unspecified whether persistent J45.909 [facility] [address] [address] Sep, Acute cystitis with hematuria N30.01 and Dysuria R30.0 [facility] [address] [id number] Sep, [address] [address] Sep, Dysuria R30.0 [facility] [address] [id number] Sep, Dental examination Z01.[address] [address] 08 Sep, 2017 Encounter for dental examination and cleaning with abnormal findings Z01.21 [facility] [address] [place] [address] Sep, Tooth pain K08.[address] [address] Sep, Nevoid hyperpigmentation L81.9 [place] [id number] [place] [address] Aug, Nevoid hyperpigmentation L81.[address] [address] Aug, Sore throat J02.9 ; Bronchitis J40 and Irritated nevus D22.[address] [address] Aug, Dysuria R30.0 ; Acute cystitis with hematuria N30.01 ; Vaginal yeast infection B37.3 and Slow transit constipation K59.01 [facility] [address] [address] Jul, [facility] [address] [id number] Jun, Dental examination Z01.20 [facility] [address] [address] Jun, Fluid level behind tympanic membrane of both ears H65.93 [facility] [address] [address] Jun, Potential exposure to STD Z20.2 ; Dysuria R30.0 ; Vaginal discharge N89.8 and Candidiasis of female genitalia B37.3 [facility] [address] [id number] Jun, Dental examination Z01.20 [facility] [address] [id number] May, Dental examination Z01.20 [facility] [address] [id number] May, Dental examination Z01.20 [facility] [address] [id number] May, Dental examination Z01.20 [facility] [address] [address] Apr, Dysfunction of both eustachian tubes H69.83 [facility] [address] [address] Apr, GERD (gastroesophageal reflux disease) K21.9 and Sore throat J02.9 [facility] [address] [id number] Apr, Dental examination Z01.20 [facility] [address] [address] Apr, Asthma exacerbation J45.901 [facility] [address] [id number] Mar, Dental examination Z01.20 [facility] [address] [id number] Feb, Dental examination Z01.20 [facility] [address] [address] Feb, Middle ear effusion, bilateral H65.93 [place] [address] [address] Feb, Dysuria R30.0 and Diverticulitis of large intestine without perforation or abscess with bleeding K57.33 [place] [address] [address] January, Asthma with acute exacerbation in adult J45.901 [place] [address] [address] January, Dysuria R30.0 ; Vaginal discharge N89.8 and Acute non- recurrent maxillary sinusitis J01.00 [place] [address] [address] Dec, [place] [address] [address] Dec, Sore throat J02.9 ; Acute mucoid otitis media of left ear H65.112 and Acute non-recurrent maxillary sinusitis J01.00 [facility] [address] [place] [id number] [place] [address] Dec, Bronchitis J40 [facility] [place] [address] [address] Dec, Shortness of breath R06.02 and Mild intermittent asthma without complication J45.20 [place] [address] [address] Nov, Asthma exacerbation J45.901 and Bronchitis J40 [place] [address] [address] Oct, Acute mucoid otitis media of both ears H65.113 and Acute non -recurrent maxillary sinusitis J01.00 [facility] [address] [id number] Oct, Dental examination Z01.20 [place] [address] [address] Sep, Exposure to influenza Z20.828 and Upper respiratory tract infection, unspecified type J06.9 [facility] [place] [id number] [place] [address] Aug, Acute exacerbation of asthma with allergic rhinitis J45.901 [facility] [address] [address] Aug, Burning with urination R30.0 and Hematuria R31.[address] [address] 08 Aug, 2016 Seasonal allergic rhinitis, unspecified allergic rhinitis trigger J30.2 and Dermatitis L30.[address] [address] 17 Jul, 2016 Follow up Z09 [address] [address] 15 Jul, 2016 [place] [address] [place] [id number] [place] [address] 10 Jul, 2016 Dysuria R30.0 ; Acute vaginitis N76.0 and PID (acute pelvic inflammatory disease) N73.0 [place] [address] [place] [id number] [place] [address] 02 Jul, 2016 Sore throat J02.9 [facility] [address] [address] 16 Jun, 2016 Acute otitis externa of both ears, unspecified type H60.503 [facility] [address] [address] May, Sore throat J02.9 and Pharyngitis, unspecified etiology J02.9 [facility] [address] [address] Apr, Dysuria R30.0 [facility] [place] [address] [address] 18 Mar, 2016 Viral infection B34.9 [facility] [address] [address] 07 Mar, 2016 Dermatitis L30.9 [place] [address] [address] 27 Feb, 2016 Annual physical exam Z00.00 and Screen for STD (sexually transmitted disease) Z11.3 [facility] [place] [id number] [place] [address] 13 Feb, 2016 Pain with urination R30.[address] [address] 03 Feb, 2016 Other seasonal allergic rhinitis J30.2 [place] [address] [address] 29 Nov, 2015 Cough R05 and Viral syndrome B34.9 [place] [address] [address] 22 Nov, 2015 Oral contraceptive pill surveillance Z30.41 and Left ovarian cyst N83.[address] [address] 16 Nov, 2015 Ovarian cyst N83.20 and Otitis media of both ears H66.[address] [address] 07 Nov, 2015 Sore throat J02.9 and Streptococcal pharyngitis J02.[address] [address] 17 Oct, 2015 Ovarian cyst N83.20 ; Hematuria R31.9 ; Urinary crystals R82.99 ; Left sided abdominal pain R10.9 and Allergic rhinitis J30.[address] [address] 14 Oct, [address] [address] 11 Oct, 2015 Left lower quadrant pain R10.32 ; Dysuria R30.0 ; History of constipation Z87.19 ; Routine screening for STI (sexually transmitted infection) Z11.3 ; CVA tenderness M54.9 ; Lower abdominal tenderness R10.819 ; Vaginal itching L29.8 and Family history of endometriosis Z84.[address] [address] 01 Oct, 2015 Asthma attack 493.92 ; UTI symptoms R39.9 and Sinusitis 473.9 [facility] [address] [id number] Aug, 2015 Dental examination Z01.[address] [address] Jul, Scabies B86 [address] [address] Jun, Otitis externa of both ears H60.93 [facility] [address] [place] [address] May, Asthma attack 493.92 [facility] [address] [place] [id number] [place] [address] 306599- [address] Apr, Otitis externa of both ears 380.10 [facility] [address] [place] [id number] [place] [address] Apr, Insect bite 919.4 [facility] [address] [place] [id number] [place] [address]- 2010 Apr, Infective otitis externa 380.10 [facility] [address] [place] [id number] [place] [address]47[address] Mar, Acute sinusitis 461.9 [facility] [address] [place] [id number] [place] [address] Mar, Acute pharyngitis 462 [facility] [address] [place] [id number] [place] [address] Feb, Otitis media of both ears 382.9 [place] [address] [place] [id number] [place] [address] Feb, Dysuria 788.1 and Urinary tract infection 599.0 [place] [address] [place] [id number] [place] [address] 9135 Feb, Dysuria 788.1 [facility] [address] [place] [id number] [place] [address]- [address] January, Sinusitis 473.9 [facility] [address] [place] [id number] [place] [address] Dec, [facility] [address] [place] [id number] [place] [address]- 22[address] Dec, [facility] [id number] [place] [address] 285[address]- 5164 Nov, [facility] [address] [facility] [id number] [address] Nov, [facility] [address] [address] Oct, [facility] [address] [facility] [id number] Oct, 2014 [facility] [address] [address] Oct, [facility] [address] [address] Oct, 2014 [facility] [address] [address] Oct, [facility] [address] [address] Oct, [facility] [address] [address] Aug, [facility] [address] [address] Aug, [facility] [address] [address] Aug, [facility] [address] [id number] [address] Aug, IMMUNIZATIONS No Known Immunizations SOCIAL HISTORY Never Assessed REASON FOR VISIT FYI only PLAN OF CARE VITAL SIGNS MEDICATIONS Unknown Medications RESULTS No Results PROCEDURES No Known procedures INSTRUCTIONS MEDICATIONS ADMINISTERED No Known Medications MEDICAL (GENERAL) HISTORY Type Description Date Medical History asthma Medical History Seasonal allergies Surgical History myringotomy with ventilating tube x 2 Surgical History [place] teeth removal 09/01/2015
--- OUTSIDE RECORDS SUMMARY | 2018-06-09 21:24 | XMS REPORT ---
Author Author IVETH BENDER [facility] Address [address] [place] [address] Care Team Providers Care Care Transition Mgr Name Role Phone NAPOLEON IVETH Unavailable PROBLEMS Type Condition ICD9-CM Code ZYQ42-CW Code Onset Dates Condition Status SNOMED Code Problem Ovarian cyst N83.20 Active 12477715 Problem Chronic maxillary sinusitis J32.0 Active 55683807 Problem Exacerbation of asthma, unspecified asthma severity, unspecified whether persistent J45.901 Active 982871318 Problem Mild intermittent asthma without complication J45.20 Active 038647768 Problem Seasonal allergic rhinitis, unspecified allergic rhinitis trigger J30.2 Active 641277878 Problem Slow transit constipation K59.01 Active 50541677 Problem GERD (gastroesophageal reflux disease) K21.9 Active 138897506 ALLERGIES Substance Reaction Event Type Date Status SulfADIAZINE Unknown Drug Allergy Sep, Active Penicillin V Potassium Unknown Drug Allergy Sep, Active ENCOUNTERS Encounter Location Date Diagnosis [place] [address] [address] Feb, [facility] [address] [address] January, Dysuria R30.0 and Pyelonephritis N12 [facility] [address] [address] January, [facility] [address] [address] January, Acute recurrent maxillary sinusitis J01.01 [facility] [address] [address] Dec, [facility] [address] [address] Dec, Lower abdominal pain R10.30 ; Polyuria R35.8 and Earache symptoms in both ears H92.03 [facility] [address] [place] [address] Dec, Gastroenteritis K52.9 [facility] [address] [address] Dec, Dysuria R30.0 ; Yeast infection of the vagina B37.3 and Shaking R25.[address] [address] Nov, Exacerbation of asthma, unspecified asthma severity, unspecified whether persistent J45.901 [facility] [address] [address] Nov, Acute frontal sinusitis, recurrence not specified J01.10 ; Post-nasal drainage R09.82 and Chronic asthma without complication, unspecified asthma severity, unspecified whether persistent J45.909 [facility] [address] [address] Sep, Acute cystitis with hematuria N30.01 and Dysuria R30.0 [facility] [address] [id number] Sep, [address] [address] Sep, Dysuria R30.0 [facility] [address] [id number] Sep, Dental examination Z01.[address] [address] 08 Sep, 2017 Encounter for dental examination and cleaning with abnormal findings Z01.21 [facility] [address] [place] [address] Sep, Tooth pain K08.[address] [address] Sep, Nevoid hyperpigmentation L81.9 [place] [id number] [place] [address] Aug, Nevoid hyperpigmentation L81.[address] [address] Aug, Sore throat J02.9 ; Bronchitis J40 and Irritated nevus D22.[address] [address] Aug, Dysuria R30.0 ; Acute cystitis with hematuria N30.01 ; Vaginal yeast infection B37.3 and Slow transit constipation K59.01 [facility] [address] [address] Jul, [facility] [address] [id number] Jun, Dental examination Z01.20 [facility] [address] [address] Jun, Fluid level behind tympanic membrane of both ears H65.93 [facility] [address] [address] Jun, Potential exposure to STD Z20.2 ; Dysuria R30.0 ; Vaginal discharge N89.8 and Candidiasis of female genitalia B37.3 [facility] [address] [place] [id number] [place] [id number] Jun, Dental examination Z01.20 [facility] [address] [id number] May, Dental examination Z01.20 [facility] [address] [id number] May, Dental examination Z01.20 [facility] [address] [id number] May, Dental examination Z01.20 [facility] [address] [place] [id number] [place] [address] Apr, Dysfunction of both eustachian tubes H69.83 [facility] [address] [place] [id number] [place] [address] Apr, GERD (gastroesophageal reflux disease) K21.9 and Sore throat J02.9 [facility] [address] [id number] Apr, Dental examination Z01.20 [facility] [address] [address] Apr, Asthma exacerbation J45.901 [facility] [address] [id number] Mar, Dental examination Z01.20 [facility] [address] [id number] Feb, Dental examination Z01.20 [facility] [address] [place] [id number] [place] [address] Feb, Middle ear effusion, bilateral H65.93 [facility] [address] [address] Feb, Dysuria R30.0 and Diverticulitis of large intestine without perforation or abscess with bleeding K57.33 [facility] [address] [address] January, Asthma with acute exacerbation in adult J45.901 [facility] [address] [address] January, Dysuria R30.0 ; Vaginal discharge N89.8 and Acute non- recurrent maxillary sinusitis J01.00 [facility] [address] [place] [id number] [place] [address] Dec, [facility] [address] [address] Dec, Sore throat J02.9 ; Acute mucoid otitis media of left ear H65.112 and Acute non-recurrent maxillary sinusitis J01.00 [place] [address] [address] 03 Dec, 2016 Bronchitis J40 [facility] [address] [address] Dec, Shortness of breath R06.02 and Mild intermittent asthma without complication J45.20 [place] [address] [address] 2016 Nov, Asthma exacerbation J45.901 and Bronchitis J40 [place] [address] [address] Oct, Acute mucoid otitis media of both ears H65.113 and Acute non -recurrent maxillary sinusitis J01.00 [facility] [address] [id number] Oct, Dental examination Z01.20 [place] [address] [address] Sep, Exposure to influenza Z20.828 and Upper respiratory tract infection, unspecified type J06.9 [facility] [address] [address] Aug, Acute exacerbation of asthma with allergic rhinitis J45.901 [facility] [address] [address] Aug, Burning with urination R30.0 and Hematuria R31.[address] [address] 08 Aug, 2016 Seasonal allergic rhinitis, unspecified allergic rhinitis trigger J30.2 and Dermatitis L30.[address] [address] Jul, Follow up Z09 [place] [address] [address] 15 Jul, 2016 [place] [address] [address] 10 Jul, 2016 Dysuria R30.0 ; Acute vaginitis N76.0 and PID (acute pelvic inflammatory disease) N73.[address] [address] 02 Jul, 2016 Sore throat J02.9 [facility] [address] [place] [address] 16 Jun, 2016 Acute otitis externa of both ears, unspecified type H60.503 [facility] [address] [address] 29 May, 2016 Sore throat J02.9 and Pharyngitis, unspecified etiology J02.9 [facility] [address] [address] Apr, Dysuria R30.0 [facility] [address] [address] Mar, Viral infection B34.9 [facility] [address] [address] Mar, Dermatitis L30.[address] [address] 27 Feb, 2016 Annual physical exam Z00.00 and Screen for STD (sexually transmitted disease) Z11.3 [facility] [address] [address] 13 Feb, 2016 Pain with urination R30.[address] [address] 03 Feb, 2016 Other seasonal allergic rhinitis J30.[address] [address] 29 Nov, 2015 Cough R05 and Viral syndrome B34.9 [place] [address] [place] [id number] [place] [address] 22 Nov, 2015 Oral contraceptive pill surveillance Z30.41 and Left ovarian cyst N83.20 [place] [address] [address] 16 Nov, 2015 Ovarian cyst N83.20 and Otitis media of both ears H66.93 [place] [address] [address] 07 Nov, 2015 Sore throat J02.9 and Streptococcal pharyngitis J02.[address] [address] 17 Oct, 2015 Ovarian cyst N83.20 ; Hematuria R31.9 ; Urinary crystals R82.99 ; Left sided abdominal pain R10.9 and Allergic rhinitis J30.9 [place] [address] [place] [id number] [place] [address] 14 Oct, 2015 [place] [id number] [place] [address] 11 Oct, 2016 Left lower quadrant pain R10.32 ; Dysuria R30.0 ; History of constipation Z87.19 ; Routine screening for STI (sexually transmitted infection) Z11.3 ; CVA tenderness M54.9 ; Lower abdominal tenderness R10.819 ; Vaginal itching L29.8 and Family history of endometriosis Z84.2 [place] [address] [place] [id number] [place] [address] 01 Oct, 2015 Asthma attack 493.92 ; UTI symptoms R39.9 and Sinusitis 473.9 [facility] [address] [place] [id number] [place] [id number] 09 Aug, 2015 Dental examination Z01.20 [place] [id number] [place] [address]- [address] 30 Jul, 2015 Scabies B86 [address] [place] [address]36- [address]261 Jun, Otitis externa of both ears H60.93 [facility] [address] [place] [id number] [place] [address] May, Asthma attack 493.92 [facility] [address] [place] [id number] [place] [address] Apr, Otitis externa of both ears 380.10 [facility] [address] [place] [id number] [place] [address]- 2241 Apr, Insect bite 919.4 [facility] [address] [place] [id number] [place] [address]65- [address]26 Apr, Infective otitis externa 380.10 [facility] [address] [place] [id number] [place] [address]32- 5627 Mar, Acute sinusitis 461.9 [facility] [address] [place] [id number] [place] [address]- 3741 Mar, Acute pharyngitis 462 [facility] [address] [place] [id number] [place] [address] 7[address]- 2247 Feb, Otitis media of both ears 382.9 [facility] [address] [place] [address]- [address]65 Feb, Dysuria 788.1 and Urinary tract infection 599.0 [facility] [address] [place] [id number] [place] [address]- 6522 Feb, Dysuria 788.1 [facility] [address] [place] [address]- [address] January, Sinusitis 473.9 [facility] [address] [place] [id number] [place] [address]- 1652 Dec, [facility] [id number] [place] [address]- [address]274 Dec, [facility] [address] [address] Nov, [facility] [address] [address] Nov, [facility] [address] [address] Oct, 2014 [facility] [address] [address] Oct, 2014 [facility] [address] [address] Oct, 2014 [facility] [address] [address] Oct, 2014 [facility] [address] [address] Oct, 2014 [facility] [address] [place] [address] Oct, [facility] [address] [place] [address] Aug, [facility] [address] [place] [address] Aug, [facility] [address] [place] [address] Aug, [facility] [address] [place] [id number] [address] Aug, IMMUNIZATIONS No Known Immunizations SOCIAL HISTORY Never Assessed REASON FOR VISIT Possible UTI-AHarrymanRN, dysuria, urgency, began two weeks ago PLAN OF CARE Activity Details Follow Up if not improving or regular follow up Reason: VITAL SIGNS Height 59 in 2017-10-02 Weight 91.5 lbs 2017-10-02 Temperature 99.3 degrees Fahrenheit 2017-10-02 Heart Rate 84 bpm 2017-10-02 Respiratory Rate 18 2017-10-02 BMI 18.48 kg/m2 2017-10-02 Blood pressure systolic 98 mmHg 2017-10-02 Blood pressure diastolic 64 mmHg 2017-10-02 MEDICATIONS Medication Instructions Dosage Frequency Start Date End Date Duration Status Azithromycin 250 MG Orally Once a day 2 tablets on the first day, then 1 tablet daily for 4 days 24h 5 day(s) Active MiraLax - Orally Once a day 17 grams 24h Aug, Active Depo-Provera 150 MG/ML Not-Taking Flonase 50 mcg/act intranasally daily 1 spary each nostril 24h Aug, Active Zyrtec Allergy 10 mg oral daily 1 tablet 24h Active Singulair 10 MG Orally Once a day 1 tablet in the evening 24h January, 30 Active ProAir HFA 108 (90 Base) mcg/act Inhalation every 4 hrs 2 puffs as needed 4h Aug, Active RESULTS No Results PROCEDURES Procedure Date Ordered Result Body Site URINALYSIS, AUTO, W/O SCOPE Oct 02, 2017 URINE CULTURE/COLONY COUNT Oct 02, 2017 INSTRUCTIONS MEDICATIONS ADMINISTERED No Known Medications MEDICAL (GENERAL) HISTORY Type Description Date Medical History asthma Medical History Seasonal allergies Surgical History myringotomy with ventilating tube x 2 Surgical History [place] teeth removal 09/01/2015
--- OUTSIDE RECORDS SUMMARY | 2018-06-09 21:25 | XMS REPORT ---
Author Author NEISHA ARCE Kadi [facility] Address Unknown Care Team Providers Care Digital Media Analyst Name Role Phone NEISHA ARCE Unavailable PROBLEMS Type Condition ICD9-CM Code JDH47-IA Code Onset Dates Condition Status SNOMED Code Problem Exacerbation of asthma, unspecified asthma severity, unspecified whether persistent J45.901 Active 569327979 Problem Slow transit constipation K59.01 Active 62449661 Problem Seasonal allergic rhinitis, unspecified allergic rhinitis trigger J30.2 Active 328065622 Problem Ovarian cyst N83.20 Active 65337043 Problem GERD (gastroesophageal reflux disease) K21.9 Active 410342983 Problem Mild intermittent asthma without complication J45.20 Active [id number] ALLERGIES Substance Reaction Event Type Date Status Penicillin V Potassium Unknown Drug Allergy Jun, Active ENCOUNTERS Encounter Location Date Diagnosis [place] [address] [place] [id number] [place] [address]663 Dec, [address] [address] Dec, Lower abdominal pain R10.30 ; Polyuria R35.8 and Earache symptoms in both ears H92.03 [facility] [address] [address] [id number] [place] [address]8340 Dec, Gastroenteritis K52.[address] [facility] [address] [place] [id number] [place] [address]7564 Dec, Dysuria R30.0 ; Yeast infection of the vagina B37.3 and Shaking R25.1 [facility] [address] [address] Nov, Exacerbation of asthma, unspecified asthma severity, unspecified whether persistent J45.[address] [facility] [address] [address] Nov, Acute frontal sinusitis, recurrence not specified J01.10 ; Post-nasal drainage R09.82 and Chronic asthma without complication, unspecified asthma severity, unspecified whether persistent J45.[address] [facility] [place] [address] [address] [id number] [place] [address]7853 Sep, Acute cystitis with hematuria N30.01 and Dysuria R30.0 [facility] [address] [id number] Sep, [place] [address] [address]99 Sep, Dysuria R30.0 [facility] [address] [id number] Sep, Dental examination Z01.[address] [address]- [address] 08 Sep, 2017 Encounter for dental examination and cleaning with abnormal findings Z01.[address] [facility] [place] [address] [address] Sep, Tooth pain K08.89 [place] [address] 80873- 9583 Sep, Nevoid hyperpigmentation L81.9 [place] [address] [id number] [place] [address] 14146- 6598 Aug, Nevoid hyperpigmentation L81.9 [place] [address] [address] [id number] [place] [address] 41291- 3422 Aug, Sore throat J02.9 ; Bronchitis J40 and Irritated nevus D22.9 [place] [address] [address] [id number] [place] [address] 82341- 7598 Aug, Dysuria R30.0 ; Acute cystitis with hematuria N30.01 ; Vaginal yeast infection B37.3 and Slow transit constipation K59.[address] [facility] [id number] [place] [address] [id number] Jul, [facility] [address] [place] [address] [id number] [place] [id number] Jun, Dental examination Z01.20 [facility] [id number] [place] [address]15 [address]9409 Jun, Fluid level behind tympanic membrane of both ears H65.[address] [facility] [address] 36[address] Jun, Potential exposure to STD Z20.2 ; Dysuria R30.0 ; Vaginal discharge N89.8 and Candidiasis of female genitalia B37.3 [facility] [address] [id number] Jun, Dental examination Z01.20 [facility] [address] [id number] May, Dental examination Z01.20 [facility] [address] [id number] May, Dental examination Z01.20 [facility] [address] [id number] May, Dental examination Z01.20 [facility] [id number] [place] [address] 07759- 1453 Apr, Dysfunction of both eustachian tubes H69.[address] [facility] [id number] [place] [address] 98795 -4678 15 Apr, 2017 GERD (gastroesophageal reflux disease) K21.9 and Sore throat J02.9 [facility] [address] [id number] Apr, Dental examination Z01.20 [facility] [id number] [place] [address] 98615- 3725 07 Apr, 2017 Asthma exacerbation J45.901 [facility] [address] [place] [id number] Mar, Dental examination Z01.20 [facility] [id number] [place] [id number] Feb, Dental examination Z01.20 [facility] [address] [id number] [place] [address] 03347 -1276 24 Feb, 2017 Middle ear effusion, bilateral H65.93 [place] [address] 10661- 6011 Feb, Dysuria R30.0 and Diverticulitis of large intestine without perforation or abscess with bleeding K57.33 [place] [address] 75064- 8517 January, Asthma with acute exacerbation in adult J45.901 [place] [address] 70092[address] 5777 January, Dysuria R30.0 ; Vaginal discharge N89.8 and Acute non- recurrent maxillary sinusitis J01.00 [place] [address] [address] [id number] [place] [address] 14805- 9134 Dec, [place] [address] 28349[address] 5949 Dec, Sore throat J02.9 ; Acute mucoid otitis media of left ear H65.112 and Acute non-recurrent maxillary sinusitis J01.00 [place] [address] [address] [id number] [place] [address] 38326- 3485 Dec, Bronchitis J40 [facility] [id number] [place] [address] 16113 -4895 Dec, Shortness of breath R06.02 and Mild intermittent asthma without complication J45.20 [facility] [address] [address] [id number] [place] [address] 89927- 2800 Nov, Asthma exacerbation J45.901 and Bronchitis J40 [place] [address] 20369- 7636 21 Oct, 2016 Acute mucoid otitis media of both ears H65.113 and Acute non -recurrent maxillary sinusitis J01.00 [facility] [address] [id number] Oct, 2016 Dental examination Z01.20 [place] [address] 61656- 2086 10 Sep, 2016 Exposure to influenza Z20.828 and Upper respiratory tract infection, unspecified type J06.9 [facility] [address] 18094 [address]9944 27 Aug, 2016 Acute exacerbation of asthma with allergic rhinitis J45.[address] [facility] [address] 81332 [address]6686 15 Aug, 2016 Burning with urination R30.0 and Hematuria R31.[address] 91152- 4910 08 Aug, 2016 Seasonal allergic rhinitis, unspecified allergic rhinitis trigger J30.2 and Dermatitis L30.[address] 51591- 7477 17 Jul, 2016 Follow up Z09 [place] [address] 45139- 7104 15 Jul, 2016 [place] [address] 33616- 2534 10 Jul, 2016 Dysuria R30.0 ; Acute vaginitis N76.0 and PID (acute pelvic inflammatory disease) N73.[address] 60163- 6769 02 Jul, 2016 Sore throat J02.[address] [facility] [address] 39641 [address]3748 16 Jun, 2016 Acute otitis externa of both ears, unspecified type H60.[address] [facility] [address] 26903 [address] May, Sore throat J02.9 and Pharyngitis, unspecified etiology J02.[address] [facility] [place] [address] 29103 [address]3101 Apr, Dysuria R30.[address] [facility] [place] [address] 81943 -4156 Mar, Viral infection B34.[address] [facility] [place] [address] 46633 -8126 07 Mar, 2016 Dermatitis L30.9 [place] [address] 17396- 1438 27 Feb, 2016 Annual physical exam Z00.00 and Screen for STD (sexually transmitted disease) Z11.[address] [facility] [address] 39105 [address]3344 13 Feb, 2016 Pain with urination R30.9 [place] [address] 10796- 4370 03 Feb, 2016 Other seasonal allergic rhinitis J30.2 [place] [address] 84531- 1927 29 Nov, 2015 Cough R05 and Viral syndrome B34.9 [place] [address] 88225- 9953 22 Nov, 2015 Oral contraceptive pill surveillance Z30.41 and Left ovarian cyst N83.20 [place] [address] 01358- 8315 16 Nov, 2015 Ovarian cyst N83.20 and Otitis media of both ears H66.93 [place] [address] 56345- 2186 07 Nov, 2015 Sore throat J02.9 and Streptococcal pharyngitis J02.0 [place] [address] 60845- 3317 17 Oct, 2015 Ovarian cyst N83.20 ; Hematuria R31.9 ; Urinary crystals R82.99 ; Left sided abdominal pain R10.9 and Allergic rhinitis J30.9 [place] [address] 97478- 5439 14 Oct, 2015 [place] [address] 11069- 3112 11 Oct, 2015 Left lower quadrant pain R10.32 ; Dysuria R30.0 ; History of constipation Z87.19 ; Routine screening for STI (sexually transmitted infection) Z11.3 ; CVA tenderness M54.9 ; Lower abdominal tenderness R10.819 ; Vaginal itching L29.8 and Family history of endometriosis Z84.2 [place] [address] 54183- 2068 01 Oct, 2015 Asthma attack 493.92 ; UTI symptoms R39.9 and Sinusitis 473.9 [facility] [address] [id number] Aug, Dental examination Z01.20 [place] [address] 69469- 2996 Jul, Scabies B86 [place] [address] 90175- 4737 Jun, Otitis externa of both ears H60.[address] 72059- 3279 May, Asthma attack 493.92 [place] [address] 49564- 3644 Apr, Otitis externa of both ears 380.10 [place] [address] 24530- 5530 Apr, Insect bite 919.[address] 34755- 2158 Apr, Infective otitis externa 380.10 [facility] [address] [address] Mar, Acute sinusitis 461.9 [facility] [address] [address] 2546 Mar, Acute pharyngitis 462 [facility] [address] [address] 2546 Feb, Otitis media of both ears 382.9 [facility] [address] [address] 2546 Feb, Dysuria 788.1 and Urinary tract infection 599.0 [facility] [address] [place] [address] 19314- 7046 Feb, Dysuria 788.1 [facility] [address] [address] January, Sinusitis 473.9 [facility] [address] [address] Dec, [facility] [address] [address] Dec, [facility] [address] [address]- 26[address] Nov, [facility] [address] [address]- 4[address] Nov, [facility] [address] [address]- 2562 Oct, [facility] [address] [address] Oct, [facility] [address] Oct, [facility] [address] [place] [id number] [address] Oct, [facility] [address] [facility] [id number] [address] Oct, [facility] [address] [facility] [id number] [address]- [address]279 Oct, [facility] [address] [facility] [id number] [address]- [address]88 Aug, [facility] [address] [facility] [id number] [address]- 4520 Aug, [facility] [address] [facility] [id number] [address]- [address] Aug, [facility] [address] [facility] [id number] [address]- [address] Aug, IMMUNIZATIONS No Known Immunizations SOCIAL HISTORY Never Assessed REASON FOR VISIT PAIN PLAN OF CARE Activity Details Follow Up 1 Week Reason:recheck #30 VITAL SIGNS Height 59 in 2017-06-13 Blood pressure systolic 118 mmHg 2017-06-13 Blood pressure diastolic 73 mmHg 2017-06-13 MEDICATIONS Medication Instructions Dosage Frequency Start Date End Date Duration Status Singulair 10 MG Orally Once a day 1 tablet in the evening 24h January, Active ProAir HFA 90 mcg/actuation Inhalation every 4 hrs 2 puffs as needed 4h Aug, Active Depo-Provera 150 MG/ML Active Clindamycin HCl 150 MG Orally every 6 hrs 2 capsules 6h Jun, Jun, 7 days Active [place]wick 5-325 MG Orally every 6 hrs 1 tablet as needed 6h Jun,Jun 4 days Active Zyrtec Allergy 10mg oral daily 1 tablet 24h Active Flonase 50 mcg/actuation intranasally daily 1 spary each nostril 24h Aug Active RESULTS No Results PROCEDURES Procedure Date Ordered Result Body Site LTD ORAL EVALUATION - PROBLEM FOCUS Jun 13, 2017 Dental no charge Jun 13, 2017 Billing Notes on claim Jun 13, 2017 INSTRUCTIONS MEDICATIONS ADMINISTERED No Known Medications MEDICAL (GENERAL) HISTORY Type Description Date Medical History asthma Medical History Seasonal allergies Surgical History myringotomy with ventilating tube x 2 Surgical History [place] teeth removal 09/01/2015
--- OUTSIDE RECORDS SUMMARY | 2018-06-09 21:25 | XMS REPORT ---
Author Author IVETH BENDER Organization [facility] Address [address] [place] [address] Care Team Providers Care Central Office Associate Name Role Phone NAPOLEON IVETH Unavailable PROBLEMS Type Condition ICD9-CM Code ASZ77-CQ Code Onset Dates Condition Status SNOMED Code Problem Exacerbation of asthma, unspecified asthma severity, unspecified whether persistent J45.901 Active 686135785 Problem Slow transit constipation K59.01 Active 54217241 Problem Seasonal allergic rhinitis, unspecified allergic rhinitis trigger J30.2 Active 164035626 Problem Ovarian cyst N83.20 Active 49011528 Problem GERD (gastroesophageal reflux disease) K21.9 Active 051090450 Problem Mild intermittent asthma without complication J45.20 Active 258772326 ALLERGIES Substance Reaction Event Type Date Status Penicillin V Potassium Unknown Drug Allergy Apr, Active ENCOUNTERS Encounter Location Date Diagnosis [facility] [address] [address] Dec, Lower abdominal pain R10.30 ; Polyuria R35.8 and Earache symptoms in both ears H92.03 [facility] [address] [place] [address] Dec, Gastroenteritis K52.9 [facility] [address] [place] [address] Dec, Dysuria R30.0 ; Yeast infection of the vagina B37.3 and Shaking R25.1 [facility] [address] [place] [address] Nov, Exacerbation of asthma, unspecified asthma severity, unspecified whether persistent J45.901 [facility] [address] [place] [address] 09 Mar, 2018 Acute frontal sinusitis, recurrence not specified J01.10 ; Post-nasal drainage R09.82 and Chronic asthma without complication, unspecified asthma severity, unspecified whether persistent J45.909 [facility] [address] [address] Sep, Acute cystitis with hematuria N30.01 and Dysuria R30.0 [facility] [address] [id number] Sep, [place] [address] [address] Sep, Dysuria R30.0 [facility] [address] [id number] Sep, Dental examination Z01.[address] [address] 08 Sep, 2017 Encounter for dental examination and cleaning with abnormal findings Z01.21 [facility] [place] [address] [address] 08 Sep, 2017 Tooth pain K08.[address] [address] 03 Sep, 2017 Nevoid hyperpigmentation L81.9 [place] [address] [address] Aug, Nevoid hyperpigmentation L81.9 [place] [address] [address] Aug, Sore throat J02.9 ; Bronchitis J40 and Irritated nevus D22.[address] [address] 06 Aug, 2017 Dysuria R30.0 ; Acute cystitis with hematuria N30.01 ; Vaginal yeast infection B37.3 and Slow transit constipation K59.01 [facility] [address] [address] Jul, [facility] [address] [place] [id number] [place] [id number] Jun, Dental examination Z01.20 [facility] [address] [place] [id number] [place] [address] Jun, Fluid level behind tympanic membrane of both ears H65.93 [facility] [address] [place] [id number] Jun, Potential exposure to STD Z20.2 ; Dysuria R30.0 ; Vaginal discharge N89.8 and Candidiasis of female genitalia B37.3 [facility] [address] [id number] Jun, Dental examination Z01.20 [facility] [address] [id number] May, Dental examination Z01.20 [facility] [address] [id number] May, Dental examination Z01.20 [facility] [address] [id number] May, Dental examination Z01.20 [facility] [address] [place] [id number] [place] [address] Apr, Dysfunction of both eustachian tubes H69.83 [facility] [address] [place] [id number] [place] [address] Apr, GERD (gastroesophageal reflux disease) K21.9 and Sore throat J02.9 [facility] [address] [place] [id number] [place] [id number] Apr, Dental examination Z01.20 [facility] [address] [address]- [address] Apr, Asthma exacerbation J45.901 [facility] [address] [id number] Mar, Dental examination Z01.20 [facility] [address] [place] [id number] Feb, Dental examination Z01.20 [facility] [address] [place] [id number] [place] [address] Feb, Middle ear effusion, bilateral H65.93 [place] [address] [place] [id number] [place] [address] Feb, Dysuria R30.0 and Diverticulitis of large intestine without perforation or abscess with bleeding K57.33 [place] [address] [place] [id number] [place] [address] January, Asthma with acute exacerbation in adult J45.901 [place] [address] [place] [id number] [place] [address] January, Dysuria R30.0 ; Vaginal discharge N89.8 and Acute non- recurrent maxillary sinusitis J01.00 [place] [address] [place] [id number] [place] [address] Dec, [place] [address] [address] Dec, Sore throat J02.9 ; Acute mucoid otitis media of left ear H65.112 and Acute non-recurrent maxillary sinusitis J01.00 [place] [address] [place] [id number] [place] [address] Dec, Bronchitis J40 [facility] [address] [place] [id number] [place] [address] Dec, Shortness of breath R06.02 and Mild intermittent asthma without complication J45.20 [place] [address] [place] [id number] [place] [address] Nov, Asthma exacerbation J45.901 and Bronchitis J40 [place] [address] [place] [id number] [place] [address] 21 Feb, 2017 Acute mucoid otitis media of both ears H65.113 and Acute non -recurrent maxillary sinusitis J01.00 [facility] [address] [place] [id number] 03 Oct, 2016 Dental examination Z01.20 [facility] [address] [address] 10 Sep, 2016 Exposure to influenza Z20.828 and Upper respiratory tract infection, unspecified type J06.9 [facility] [place] [address] [address] 27 Aug, 2016 Acute exacerbation of asthma with allergic rhinitis J45.901 [facility] [address] [address] 15 Aug, 2016 Burning with urination R30.0 and Hematuria R31.[address] [address] 08 Aug, 2016 Seasonal allergic rhinitis, unspecified allergic rhinitis trigger J30.2 and Dermatitis L30.9 [place] [address] [address] 17 Jul, 2016 Follow up Z09 [place] [address] [address] 15 Jul, 2016 [place] [address] [address] 10 Jul, 2016 Dysuria R30.0 ; Acute vaginitis N76.0 and PID (acute pelvic inflammatory disease) N73.0 [place] [address] [place] [id number] [place] [address]- [address] 02 Jul, 2016 Sore throat J02.9 [facility] [address] [address] 16 Jun, 2016 Acute otitis externa of both ears, unspecified type H60.503 [facility] [address] [address] May, Sore throat J02.9 and Pharyngitis, unspecified etiology J02.9 [facility] [place] [address] [place] [id number] [place] [address] Apr, Dysuria R30.0 [facility] [place] [address] [address] Mar, Viral infection B34.9 [facility] [address] [address] Mar, Dermatitis L30.9 [place] [address] [address] 27 Feb, 2016 Annual physical exam Z00.00 and Screen for STD (sexually transmitted disease) Z11.3 [facility] [address] [address] 13 Feb, 2016 Pain with urination R30.9 [place] [address] [address] 03 Feb, 2016 Other seasonal allergic rhinitis J30.[address] [address] Nov, Cough R05 and Viral syndrome B34.[address] [address] Nov, Oral contraceptive pill surveillance Z30.41 and Left ovarian cyst N83.20 [place] [address] [address] 16 Nov, 2015 Ovarian cyst N83.20 and Otitis media of both ears H66.[address] [address] 07 Nov, 2015 Sore throat J02.9 and Streptococcal pharyngitis J02.0 [place] [address] [address] 17 Oct, 2015 Ovarian cyst N83.20 ; Hematuria R31.9 ; Urinary crystals R82.99 ; Left sided abdominal pain R10.9 and Allergic rhinitis J30.9 [place] [address] 887[address]- [address] 14 Oct, 2015 [place] [address] [address] 11 Oct, 2015 Left lower quadrant pain R10.32 ; Dysuria R30.0 ; History of constipation Z87.19 ; Routine screening for STI (sexually transmitted infection) Z11.3 ; CVA tenderness M54.9 ; Lower abdominal tenderness R10.819 ; Vaginal itching L29.8 and Family history of endometriosis Z84.2 [place] [address] [address] 01 Oct, 2015 Asthma attack 493.92 ; UTI symptoms R39.9 and Sinusitis 473.9 [facility] [address] [id number] Aug, Dental examination Z01.20 [place] [address] [address]39[address] Jul, Scabies B86 [place] [address] 95[address]- [address] Jun, Otitis externa of both ears H60.93 [place] [address] [address] May, Asthma attack 493.92 [place] [address] 23393- 14[address] Apr, Otitis externa of both ears 380.10 [place] [address] 96020- [address]41 Apr, Insect bite 919.4 [place] [address] 47932- 30[address] Apr, Infective otitis externa 380.10 [place] [address] [address]- [address] Mar, Acute sinusitis 461.9 [facility] [address] [place] [address] 051085- [address] Mar, Acute pharyngitis 462 [facility] [address] [address] Feb, Otitis media of both ears 382.9 [facility] [address] [place] [id number] [place] [address]71- [address]797 Feb, Dysuria 788.1 and Urinary tract infection 599.0 [facility] [address] [place] [id number] [place] [address]36- 480[address] Feb, Dysuria 788.1 [facility] [address] [place] [address]71- [address]858 January, Sinusitis 473.9 [facility] [address] [place] [id number] [place] [address] 48[address]- [address]676 Dec, [facility] [address] [address] Dec, [facility] [address] [place] [address] 8[address]60- [address] Nov, [facility] [address] [address] Nov, [facility] [address] [address] Oct, [facility] [address] [address] Oct, [facility] [address] [address] Oct, [facility] [address] [address] Oct, [facility] [address] [place] [address] Oct, [facility] [address] [facility] [id number] [address] Oct, [facility] [address] [facility] [id number] [address] Aug, [facility] [address] [facility] [id number] [address] Aug, [facility] [address] [facility] [id number], [place] [address] Aug, [facility] [address] [facility] [id number], [place] [address] Aug, IMMUNIZATIONS No Known Immunizations SOCIAL HISTORY Never Assessed REASON FOR VISIT Ear pain, bilateral x1 week---DBennettRN PLAN OF CARE Activity Details Follow Up if not improving with PCP or reg follow up. if not improving with PCP or reg follow up Reason: VITAL SIGNS Height 59 in 2017-05-09 Weight 88 lbs 2017-05-09 Temperature 98.5 degrees Fahrenheit 2017-05-09 Heart Rate 70 bpm 2017-05-09 Respiratory Rate 20 2017-05-09 BMI 17.77 kg/m2 2017-05-09 Blood pressure systolic 110 mmHg 2017-05-09 Blood pressure diastolic 70 mmHg 2017-05-09 MEDICATIONS Medication Instructions Dosage Frequency Start Date End Date Duration Status Depo-Provera 150 MG/ML Active Zyrtec Allergy 10mg oral daily 1 tablet 24h Active PredniSONE 20 mg Orally Once a day 1 tablet 24h Apr, May, 05 days Active Ranitidine HCl 150 MG Orally Once a day 1 tablet at bedtime 24h Apr, 30 day(s) Active ProAir HFA 90 mcg/actuation Inhalation every 4 hrs 2 puffs as needed 4h Aug, Active Singulair 10 MG Orally Once a day 1 tablet in the evening 24h January, Active Flonase 50 mcg/actuation intranasally daily 1 spary each nostril 24h Aug Active RESULTS No Results PROCEDURES No Known procedures INSTRUCTIONS MEDICATIONS ADMINISTERED No Known Medications MEDICAL (GENERAL) HISTORY Type Description Date Medical History asthma Medical History Seasonal allergies Surgical History myringotomy with ventilating tube x 2 Surgical History [place] teeth removal 09/01/2015
--- OUTSIDE RECORDS SUMMARY | 2018-06-09 21:25 | XMS REPORT ---
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 Name Role Phone [facility] Unavailable PROBLEMS Type Condition ICD9-CM Code [id number] Code Onset Dates Condition Status SNOMED Code Problem Ovarian cyst N83.20 Active 19062153 Problem Chronic maxillary sinusitis J32.0 Active 52772274 Problem Exacerbation of asthma, unspecified asthma severity, unspecified whether persistent J45.901 Active 742953664 Problem Mild intermittent asthma without complication J45.20 Active 643021715 Problem Seasonal allergic rhinitis, unspecified allergic rhinitis trigger J30.2 Active 271937596 Problem Slow transit constipation K59.01 Active 97803727 Problem GERD (gastroesophageal reflux disease) K21.9 Active 450033516 ALLERGIES No Information ENCOUNTERS Encounter Location Date Diagnosis [place] [address] [address] January, [place] [address] [address] January, Acute recurrent maxillary sinusitis J01.01 [place] [address] [place] [id number] [place] [address] Dec, [facility] [address] [address] Dec, Lower abdominal pain R10.30 ; Polyuria R35.8 and Earache symptoms in both ears H92.03 [facility] [address] [place] [id number] [place] [address] Dec, Gastroenteritis K52.9 [facility] [address] [place] [id number] [place] [address] Dec, Dysuria R30.0 ; Yeast infection of the vagina B37.3 and Shaking R25.1 [place] [address] [place] [id number] [place] [address] Nov, Exacerbation of asthma, unspecified asthma severity, unspecified whether persistent J45.901 [facility] [address] [address] Nov, Acute frontal sinusitis, recurrence not specified J01.10 ; Post-nasal drainage R09.82 and Chronic asthma without complication, unspecified asthma severity, unspecified whether persistent J45.909 [facility] [address] [address] Sep, Acute cystitis with hematuria N30.01 and Dysuria R30.0 [facility] [address] [id number] Sep, [place] [address] [address] Sep, Dysuria R30.0 [facility] [address] [id number] Sep, Dental examination Z01.20 [place] [address] [address] 08 Sep, 2017 Encounter for dental examination and cleaning with abnormal findings Z01.21 [facility] [place] [address] [address] Sep, Tooth pain K08.89 [place] [address] [address] Sep, Nevoid hyperpigmentation L81.9 [place] [address] [address] Aug, Nevoid hyperpigmentation L81.9 [place] [address] [address] 19 Dec, 2017 Sore throat J02.9 ; Bronchitis J40 and Irritated nevus D22.9 [facility] [address] [address] Aug, Dysuria R30.0 ; Acute cystitis with hematuria N30.01 ; Vaginal yeast infection B37.3 and Slow transit constipation K59.01 [facility] [address] [place] [address] Jul, [facility] [address] [id number] Jun, Dental examination Z01.20 [facility] [address] [address] Jun, Fluid level behind tympanic membrane of both ears H65.93 [facility] [address] [address] Jun, Potential exposure to STD Z20.2 ; Dysuria R30.0 ; Vaginal discharge N89.8 and Candidiasis of female genitalia B37.3 [facility] [address] [id number] Jun, Dental examination Z01.20 [facility] [address] [id number] May, Dental examination Z01.20 [facility] [address] [id number] May, Dental examination Z01.20 [facility] [address] [id number] May, Dental examination Z01.20 [facility] [address] [address] Apr, Dysfunction of both eustachian tubes H69.83 [facility] [address] [place] [address] Apr, GERD (gastroesophageal reflux disease) K21.9 and Sore throat J02.9 [facility] [address] [place] [id number] Apr, Dental examination Z01.20 [facility] [address] [place] [id number] [place] [address] Apr, Asthma exacerbation J45.901 [facility] [address] [place] [id number] Mar, Dental examination Z01.20 [facility] [address] [id number] Feb, Dental examination Z01.20 [facility] [address] [address] Feb, Middle ear effusion, bilateral H65.93 [place] [address] [address] Feb, Dysuria R30.0 and Diverticulitis of large intestine without perforation or abscess with bleeding K57.33 [facility] [address] [place] [id number] [place] [address] January, Asthma with acute exacerbation in adult J45.901 [place] [address] [address] January, Dysuria R30.0 ; Vaginal discharge N89.8 and Acute non- recurrent maxillary sinusitis J01.00 [facility] [address] [place] [id number] [place] [address] Dec, [facility] [address] [place] [id number] [place] [address]- [address] Dec, Sore throat J02.9 ; Acute mucoid otitis media of left ear H65.112 and Acute non-recurrent maxillary sinusitis J01.00 [facility] [address] [place] [id number] [place] [address] Dec, Bronchitis J40 [facility] [address] [place] [id number] [place] [address] Dec, Shortness of breath R06.02 and Mild intermittent asthma without complication J45.20 [place] [address] [address] Nov, Asthma exacerbation J45.901 and Bronchitis J40 [place] [address] [address] Oct, Acute mucoid otitis media of both ears H65.113 and Acute non -recurrent maxillary sinusitis J01.00 [facility] [address] [id number] 03 Oct, 2016 Dental examination Z01.20 [place] [address] [address] 10 Sep, 2016 Exposure to influenza Z20.828 and Upper respiratory tract infection, unspecified type J06.9 [facility] [place] [address] [address] 27 Aug, 2016 Acute exacerbation of asthma with allergic rhinitis J45.901 [facility] [place] [address] [address] 15 Aug, 2016 Burning with urination R30.0 and Hematuria R31.[address] [address] 08 Aug, 2016 Seasonal allergic rhinitis, unspecified allergic rhinitis trigger J30.2 and Dermatitis L30.9 [place] [address] [place] [id number] [place] [address] 17 Jul, 2016 Follow up Z09 [place] [address] [address] Jul, [place] [address] [address] 10 Jul, 2016 Dysuria R30.0 ; Acute vaginitis N76.0 and PID (acute pelvic inflammatory disease) N73.0 [place] [address] [address] Jul, Sore throat J02.9 [facility] [address] [address] Jun, Acute otitis externa of both ears, unspecified type H60.503 [facility] [address] [address] May, Sore throat J02.9 and Pharyngitis, unspecified etiology J02.9 [facility] [place] [address] [address] Apr, Dysuria R30.0 [facility] [address] [address] Mar, Viral infection B34.9 [facility] [address] [address] Mar, Dermatitis L30.9 [place] [address] [address] 27 Feb, 2016 Annual physical exam Z00.00 and Screen for STD (sexually transmitted disease) Z11.3 [facility] [place] [address] [address] 13 Feb, 2016 Pain with urination R30.9 [place] [address] [address] 03 Feb, 2016 Other seasonal allergic rhinitis J30.2 [place] [address] [address] Nov, Cough R05 and Viral syndrome B34.9 [place] [address] [address] Nov, Oral contraceptive pill surveillance Z30.41 and Left ovarian cyst N83.20 [place] [address] [address] 16 Nov, 2015 Ovarian cyst N83.20 and Otitis media of both ears H66.93 [place] [address] [place] [id number] [place] [address]- [address] Nov, Sore throat J02.9 and Streptococcal pharyngitis J02.0 [place] [address] [place] [id number] [place] [address]60- 1028 17 Oct, 2015 Ovarian cyst N83.20 ; Hematuria R31.9 ; Urinary crystals R82.99 ; Left sided abdominal pain R10.9 and Allergic rhinitis J30.9 [place] [address] [address] Oct, [place] [address] [address] 11 Oct, 2015 Left lower quadrant pain R10.32 ; Dysuria R30.0 ; History of constipation Z87.19 ; Routine screening for STI (sexually transmitted infection) Z11.3 ; CVA tenderness M54.9 ; Lower abdominal tenderness R10.819 ; Vaginal itching L29.8 and Family history of endometriosis Z84.2 [place] [address] [address] Oct, Asthma attack 493.92 ; UTI symptoms R39.9 and Sinusitis 473.9 [facility] [address] [id number] Aug, Dental examination Z01.20 [place] [address] [place] [id number] [place] [address]- [address] Jul, Scabies B86 [place] [address] [place] [id number] [place] [address] Jun, Otitis externa of both ears H60.93 [place] [address] [place] [id number] [place] [address] May, Asthma attack 493.92 [place] [address] [address] Apr, Otitis externa of both ears 380.10 [facility] [address] [address] Apr, Insect bite 919.4 [facility] [address] [place] [address]768[address] 1871 Apr, Infective otitis externa 380.10 [facility] [address] [place] [id number] [place] [address]- 9044 Mar, Acute sinusitis 461.9 [facility] [address] [place] [id number] [place] [address]- [address] Mar, Acute pharyngitis 462 [facility] [address] [place] [id number] [place] [address] 27920- 7917 Feb, Otitis media of both ears 382.9 [facility] [address] [place] [address] 22924- 2738 Feb, Dysuria 788.1 and Urinary tract infection 599.0 [facility] [address] [address] Feb, Dysuria 788.1 [facility] [address] [place] [address] 49769- [address] January, Sinusitis 473.9 [facility] [address] [address] Dec, [facility] [address] [place] [address] 0[address]99- 1669 Dec, [facility] [address] [address] Nov, [facility] [address] [place] [id number] [place] [address] 077687- 1211 Nov, [facility] [address] [address] Oct, [facility] [address] [place] [id number] [address] Oct, [facility] [address] [place] [address] Oct, [facility] [address] [place] [address] Oct, [facility] [address] [place] [address] Oct, [facility] [address] [place] [address] Oct, [facility] [address] [place] [address] Aug, [facility] [address] [address] Aug, [facility] [address] [place] [address] Aug, [facility] [address] [place] [id number] [address] Aug, IMMUNIZATIONS No Known Immunizations SOCIAL HISTORY Never Assessed REASON FOR VISIT PLAN OF CARE VITAL SIGNS MEDICATIONS Unknown Medications RESULTS No Results PROCEDURES No Known procedures INSTRUCTIONS MEDICATIONS ADMINISTERED No Known Medications MEDICAL (GENERAL) HISTORY Type Description Date Medical History asthma Medical History Seasonal allergies Surgical History myringotomy with ventilating tube x 2 Surgical History [place] teeth removal 09/01/2015
--- OUTSIDE RECORDS SUMMARY | 2018-06-09 21:26 | XMS REPORT ---
Author Author NEISHA ARCE Kadi [facility] Address Unknown Care Team Providers Care R And D Lab Technician Name Role Phone NEISHA ARCE Unavailable PROBLEMS Type Condition ICD9-CM Code DNR32-XP Code Onset Dates Condition Status SNOMED Code Problem Exacerbation of asthma, unspecified asthma severity, unspecified whether persistent J45.901 Active 577631222 Problem Slow transit constipation K59.01 Active 37458521 Problem Seasonal allergic rhinitis, unspecified allergic rhinitis trigger J30.2 Active 032457458 Problem Ovarian cyst N83.20 Active 75819653 Problem GERD (gastroesophageal reflux disease) K21.9 Active 728809179 Problem Mild intermittent asthma without complication J45.20 Active 631427915 ALLERGIES Substance Reaction Event Type Date Status Penicillin V Potassium Unknown Drug Allergy May, Active ENCOUNTERS Encounter Location Date Diagnosis [place] [address] [address] Dec, [address] [address] Dec, Lower abdominal pain R10.30 ; Polyuria R35.8 and Earache symptoms in both ears H92.03 [facility] [address] [place] [id number] [place] [address]46 Dec, Gastroenteritis K52.9 [facility] [address] [place] [address] Dec, Dysuria R30.0 ; Yeast infection of the vagina B37.3 and Shaking R25.1 [facility] [address] [address] Nov, Exacerbation of asthma, unspecified asthma severity, unspecified whether persistent J45.901 [facility] [address] [address] Nov, Acute frontal sinusitis, recurrence not specified J01.10 ; Post-nasal drainage R09.82 and Chronic asthma without complication, unspecified asthma severity, unspecified whether persistent J45.909 [facility] [place] [address] [place] [id number] [place] [address]798 Sep, Acute cystitis with hematuria N30.01 and Dysuria R30.0 [facility] [address] [id number] Sep, [place] [address] [address] Sep, Dysuria R30.0 [facility] [address] [id number] Sep, Dental examination Z01.[address] [address] 08 Sep, 2017 Encounter for dental examination and cleaning with abnormal findings Z01.21 [facility] [place] [address] [address] Sep, Tooth pain K08.89 [place] [address] [address] Sep, Nevoid hyperpigmentation L81.9 [place] [address] [place] [id number] [place] [address] Aug, Nevoid hyperpigmentation L81.9 [place] [address] [place] [id number] [place] [address] Aug, Sore throat J02.9 ; Bronchitis J40 and Irritated nevus D22.9 [place] [address] [place] [id number] [place] [address] Aug, Dysuria R30.0 ; Acute cystitis with hematuria N30.01 ; Vaginal yeast infection B37.3 and Slow transit constipation K59.01 [facility] [address] [place] [id number] [place] [id number] [phone] Jul, [facility] [address] [place] [id number] [place] [id number] Jun, Dental examination Z01.20 [facility] [address] [place] [id number] [place] [address] Jun, Fluid level behind tympanic membrane of both ears H65.93 [facility] [address] [address] Jun, Potential exposure to STD Z20.2 ; Dysuria R30.0 ; Vaginal discharge N89.8 and Candidiasis of female genitalia B37.3 [facility] [address] [id number] Jun, Dental examination Z01.20 [facility] [address] [id number] May, Dental examination Z01.20 [facility] [address] [id number] May, Dental examination Z01.20 [facility] [address] [id number] May, Dental examination Z01.20 [facility] [address] [place] [id number] [place] [address] Apr, Dysfunction of both eustachian tubes H69.83 [facility] [address] [place] [id number] [place] [address] 15 Apr, 2017 GERD (gastroesophageal reflux disease) K21.9 and Sore throat J02.9 [facility] [address] [id number] Apr, Dental examination Z01.20 [facility] [address] [place] [id number] [place] [address] 07 Apr, 2017 Asthma exacerbation J45.901 [facility] [address] [place] [id number] Mar, Dental examination Z01.20 [facility] [id number] [place] [address] [id number] Feb, Dental examination Z01.20 [facility] [address] [place] [id number] [place] [address] 93040 -[address]56 24 Feb, 2017 Middle ear effusion, bilateral H65.93 [place] [address] [address] Feb, Dysuria R30.0 and Diverticulitis of large intestine without perforation or abscess with bleeding K57.33 [place] [address] [address] January, Asthma with acute exacerbation in adult J45.901 [place] [address] [address] January, Dysuria R30.0 ; Vaginal discharge N89.8 and Acute non- recurrent maxillary sinusitis J01.00 [place] [address] [place] [id number] [place] [address] Dec, [place] [address] [address] Dec, Sore throat J02.9 ; Acute mucoid otitis media of left ear H65.112 and Acute non-recurrent maxillary sinusitis J01.00 [place] [address] [place] [id number] [place] [address]- [address]69 Dec, Bronchitis J40 [facility] [address] [place] [id number] [place] [address]73 Dec, Shortness of breath R06.02 and Mild intermittent asthma without complication J45.20 [facility] [address] [place] [id number] [place] [address] 27419- 2483 Nov, Asthma exacerbation J45.901 and Bronchitis J40 [place] [address] [address] 21 Oct, 2016 Acute mucoid otitis media of both ears H65.113 and Acute non -recurrent maxillary sinusitis J01.00 [facility] [address] [id number] 03 Oct, 2016 Dental examination Z01.20 [place] [address] [address] 10 Sep, 2016 Exposure to influenza Z20.828 and Upper respiratory tract infection, unspecified type J06.9 [facility] [address] [address] 27 Aug, 2016 Acute exacerbation of asthma with allergic rhinitis J45.901 [facility] [address] [address] 15 Aug, 2016 Burning with urination R30.0 and Hematuria R31.[address] [address] 08 Aug, 2016 Seasonal allergic rhinitis, unspecified allergic rhinitis trigger J30.2 and Dermatitis L30.[address] [address]- [address] 17 Jul, 2016 Follow up Z09 [place] [address] [address] 15 Jul, 2016 [place] [address] [address] 10 Jul, 2016 Dysuria R30.0 ; Acute vaginitis N76.0 and PID (acute pelvic inflammatory disease) N73.[address] [address]- [address] 02 Jul, 2016 Sore throat J02.9 [facility] [address] [address] 16 Jun, 2016 Acute otitis externa of both ears, unspecified type H60.503 [facility] [address] [address] May, Sore throat J02.9 and Pharyngitis, unspecified etiology J02.9 [facility] [place] [address] [address] Apr, Dysuria R30.0 [facility] [place] [address] [address] Mar, Viral infection B34.9 [facility] [place] [address] [address] 07 Mar, 2016 Dermatitis L30.9 [place] [address] [address] 27 Feb, 2016 Annual physical exam Z00.00 and Screen for STD (sexually transmitted disease) Z11.3 [facility] [address] [address] 13 Feb, 2016 Pain with urination R30.9 [place] [address] [address]- [address] 03 Feb, 2016 Other seasonal allergic rhinitis J30.2 [place] [address] [address]- [address] 29 Nov, 2015 Cough R05 and Viral syndrome B34.9 [place] [address] [address]- [address]67 22 Nov, 2015 Oral contraceptive pill surveillance Z30.41 and Left ovarian cyst N83.20 [place] [address] [address] 16 Nov, 2015 Ovarian cyst N83.20 and Otitis media of both ears H66.93 [place] [address] [address] 07 Nov, 2015 Sore throat J02.9 and Streptococcal pharyngitis J02.0 [place] [address] [address]74 17 Oct, 2015 Ovarian cyst N83.20 ; Hematuria R31.9 ; Urinary crystals R82.99 ; Left sided abdominal pain R10.9 and Allergic rhinitis J30.9 [place] [address] [address] 14 Oct, 2015 [place] [address] [address]- [address] 11 Oct, 2015 Left lower quadrant pain R10.32 ; Dysuria R30.0 ; History of constipation Z87.19 ; Routine screening for STI (sexually transmitted infection) Z11.3 ; CVA tenderness M54.9 ; Lower abdominal tenderness R10.819 ; Vaginal itching L29.8 and Family history of endometriosis Z84.2 [place] [address] [address]- [address]01 01 Oct, 2015 Asthma attack 493.92 ; UTI symptoms R39.9 and Sinusitis 473.9 [facility] [address] [id number] Aug, Dental examination Z01.20 [place] [address] 9[address]26- [address] Jul, Scabies B86 [place] [address] 8[address]- [address]807 Jun, Otitis externa of both ears H60.[address] [address] May, Asthma attack 493.92 [place] [address] [address]- [address] Apr, Otitis externa of both ears 380.10 [place] [address] [address]- [address]88 Apr, Insect bite 919.[address] [address] Apr, Infective otitis externa 380.10 [facility] [address] [address] Mar, Acute sinusitis 461.9 [facility] [address] [address] 2546 Mar, Acute pharyngitis 462 [facility] [address] [address] 2546 Feb, Otitis media of both ears 382.9 [facility] [address] [address] 2546 Feb, Dysuria 788.1 and Urinary tract infection 599.0 [facility] [id number] [place] [address]- [address] Feb, Dysuria 788.1 [facility] [address] [address] January, Sinusitis 473.9 [facility] [address] [address] Dec, [facility] [address] [place] [address] Dec, [facility] [address] [place] [address] Nov, [facility] [address] [place] [address] Nov, [facility] [address] [place] [address] Oct, [facility] [address] Oct, [facility] [address] [address] Oct, [facility] [address] [place] [id number] Oct, [facility] [address] [facility] [id number] [address] Oct, [facility] [address] [place] [id number] [address] Oct, [facility] [address] [place] [id number] [address] Aug, [facility] [address] [place] [id number] [address] Aug, [facility] [address] [place] [id number] [address] Aug, [facility] [address] [place] [id number] [address] Aug, IMMUNIZATIONS No Known Immunizations SOCIAL HISTORY Never Assessed REASON FOR VISIT FINISH ENDO #30 PLAN OF CARE Activity Details Follow Up prn Reason:crown prep #30 VITAL SIGNS Blood pressure systolic 114 mmHg 2017-06-06 Blood pressure diastolic 68 mmHg 2017-06-06 MEDICATIONS Medication Instructions Dosage Frequency Start Date End Date Duration Status Depo-Provera 150 MG/ML Active Ranitidine HCl 150 MG Orally Once a day 1 tablet at bedtime 24h Apr, 30 day(s) Active Zyrtec Allergy 10mg oral [...] PROCEDURES Procedure Date Ordered Result Body Site MOLAR Jun 06, 2017 Billing Notes on claim Jun 06, 2017 INSTRUCTIONS MEDICATIONS ADMINISTERED No Known Medications MEDICAL (GENERAL) HISTORY Type Description Date Medical History asthma Medical History Seasonal allergies Surgical History myringotomy with ventilating tube x 2 Surgical History [place] teeth removal 09/01/2015
--- OUTSIDE RECORDS SUMMARY | 2018-06-09 21:26 | XMS REPORT ---
Author Author LEXX OLMOS [facility] IN [facility] Address [address] [place] [address] Care Team Providers Care Physician Surgeon Name Role Phone [email or web address] Unavailable PROBLEMS Type Condition ICD9-CM Code KEN11-FD Code Onset Dates Condition Status SNOMED Code Problem Ovarian cyst N83.20 Active 14266615 Problem Chronic maxillary sinusitis J32.0 Active 41842895 Problem Exacerbation of asthma, unspecified asthma severity, unspecified whether persistent J45.901 Active 719368336 Problem Mild intermittent asthma without complication J45.20 Active 163250444 Problem Seasonal allergic rhinitis, unspecified allergic rhinitis trigger J30.2 Active 034034838 Problem Slow transit constipation K59.01 Active 78506724 Problem GERD (gastroesophageal reflux disease) K21.9 Active 947383935 ALLERGIES Substance Reaction Event Type Date Status SulfADIAZINE Unknown Drug Allergy Sep, Active Penicillin V Potassium Unknown Drug Allergy Sep, Active ENCOUNTERS Encounter Location Date Diagnosis [place] [address] [address] Feb, [place] [address] [address] January, Dysuria R30.0 and Pyelonephritis N12 [facility] [address] [place] [id number] [place] [address] January, [facility] [place] [address] [address] January, Acute recurrent maxillary sinusitis J01.01 [facility] [place] [address] [place] [id number] [place] [address] Dec, [facility] [place] [address] [address] Dec, Lower abdominal pain R10.30 ; Polyuria R35.8 and Earache symptoms in both ears H92.03 [facility] [address] [place] [address] Dec, Gastroenteritis K52.9 [facility] [address] [address] Dec, Dysuria R30.0 ; Yeast infection of the vagina B37.3 and Shaking R25.[address] [address] Nov, Exacerbation of asthma, unspecified asthma severity, unspecified whether persistent J45.901 [facility] [address] [address] Nov, Acute frontal sinusitis, recurrence not specified J01.10 ; Post-nasal drainage R09.82 and Chronic asthma without complication, unspecified asthma severity, unspecified whether persistent J45.909 [facility] [address] [address] Sep, Acute cystitis with hematuria N30.01 and Dysuria R30.0 [facility] [address] [id number] Sep, [address] [address] Sep, Dysuria R30.0 [facility] [address] [id number] Sep, Dental examination Z01.[address] [address] Sep, Encounter for dental examination and cleaning with abnormal findings Z01.21 [facility] [address] [place] [address] Sep, Tooth pain K08.[address] [address] Sep, Nevoid hyperpigmentation L81.9 [facility] [address] [place] [id number] [place] [address]- [address]882 Aug, Nevoid hyperpigmentation L81.9 [place] [address] [address] Aug, Sore throat J02.9 ; Bronchitis J40 and Irritated nevus D22.9 [place] [address] [address] Aug, Dysuria R30.0 ; Acute cystitis with hematuria N30.01 ; Vaginal yeast infection B37.3 and Slow transit constipation K59.01 [facility] [address] [address] Jul, [facility] [address] [id number] Jun, Dental examination Z01.20 [facility] [address] [address] Jun, Fluid level behind tympanic membrane of both ears H65.93 [facility] [address] [address] Jun, Potential exposure to STD Z20.2 ; Dysuria R30.0 ; Vaginal discharge N89.8 and Candidiasis of female genitalia B37.3 [facility] [address] [place] [id number] [place] [id number] Jun, Dental examination Z01.20 [facility] [address] [place] [id number] [place] [id number] May, Dental examination Z01.20 [facility] [address] [id number] May, Dental examination Z01.20 [facility] [address] [place] [id number] [place] [id number] May, Dental examination Z01.20 [facility] [place] [address] [place] [id number] [place] [address]- 89[address] Apr, Dysfunction of both eustachian tubes H69.83 [facility] [address] [place] [id number] [place] [address] Apr, GERD (gastroesophageal reflux disease) K21.9 and Sore throat J02.9 [facility] [address] [id number] Apr, Dental examination Z01.20 [facility] [address] [address] Apr, Asthma exacerbation J45.901 [facility] [address] [id number] Mar, Dental examination Z01.20 [facility] [address] [id number] Feb, Dental examination Z01.20 [facility] [address] [place] [id number] [place] [address] Feb, Middle ear effusion, bilateral H65.93 [facility] [address] [address] Feb, Dysuria R30.0 and Diverticulitis of large intestine without perforation or abscess with bleeding K57.33 [facility] [address] [place] [id number] [place] [address]- [address]99 January, Asthma with acute exacerbation in adult J45.901 [facility] [address] [place] [id number] [place] [address] 09042[address] 2528 January, Dysuria R30.0 ; Vaginal discharge N89.8 and Acute non- recurrent maxillary sinusitis J01.00 [facility] [address] [place] [id number] [place] [address] Dec, [facility] [place] [address] [address] Dec, Sore throat J02.9 ; Acute mucoid otitis media of left ear H65.112 and Acute non-recurrent maxillary sinusitis J01.00 [place] [address] [address] 03 Dec, 2016 Bronchitis J40 [facility] [place] [address] [address] 02 Dec, 2016 Shortness of breath R06.02 and Mild intermittent asthma without complication J45.20 [place] [address] [address] Nov, Asthma exacerbation J45.901 and Bronchitis J40 [place] [address] [address] Oct, Acute mucoid otitis media of both ears H65.113 and Acute non -recurrent maxillary sinusitis J01.00 [facility] [address] [id number] Oct, Dental examination Z01.20 [place] [address] [address] Sep, Exposure to influenza Z20.828 and Upper respiratory tract infection, unspecified type J06.9 [facility] [place] [id number] [place] [address] Aug, Acute exacerbation of asthma with allergic rhinitis J45.901 [facility] [place] [id number] [place] [address] Aug, Burning with urination R30.0 and Hematuria R31.[address] [address]- [address] 08 Aug, 2016 Seasonal allergic rhinitis, unspecified allergic rhinitis trigger J30.2 and Dermatitis L30.[address] [address]- [address] Jul, Follow up Z09 [place] [address] [address]66- [address] 15 Jul, 2016 [place] [address] [address]- [address] 10 Jul, 2016 Dysuria R30.0 ; Acute vaginitis N76.0 and PID (acute pelvic inflammatory disease) N73.[address] [address]- [address] 02 Jul, 2016 Sore throat J02.9 [facility] [address] [place] [address] 16 Jun, 2016 Acute otitis externa of both ears, unspecified type H60.503 [facility] [address] 47[address] 29 May, 2016 Sore throat J02.9 and Pharyngitis, unspecified etiology J02.9 [facility] [address] [address] Apr, Dysuria R30.0 [facility] [address] 29[address]42 18 Mar, 2016 Viral infection B34.9 [facility] [address] [address] 07 Mar, 2016 Dermatitis L30.[address] [address]- [address] 27 Feb, 2016 Annual physical exam Z00.00 and Screen for STD (sexually transmitted disease) Z11.3 [facility] [address] [address] 13 Feb, 2016 Pain with urination R30.[address] [address] 03 Feb, 2016 Other seasonal allergic rhinitis J30.[address] 8[address]- [address] Nov, Cough R05 and Viral syndrome B34.9 [place] [address] [place] [id number] [place] [address]32- 8[address] 22 Nov, 2015 Oral contraceptive pill surveillance Z30.41 and Left ovarian cyst N83.20 [place] [address] [address]55- 9424 16 Nov, 2015 Ovarian cyst N83.20 and Otitis media of both ears H66.93 [place] [address] [address]- [address] 07 Nov, 2015 Sore throat J02.9 and Streptococcal pharyngitis J02.[address] [address]- [address] 17 Oct, 2015 Ovarian cyst N83.20 ; Hematuria R31.9 ; Urinary crystals R82.99 ; Left sided abdominal pain R10.9 and Allergic rhinitis J30.9 [place] [address] [address]- [address] 14 Oct, 2015 [place] [id number] [place] [address]- [address] 11 Oct, 2015 Left lower quadrant pain R10.32 ; Dysuria R30.0 ; History of constipation Z87.19 ; Routine screening for STI (sexually transmitted infection) Z11.3 ; CVA tenderness M54.9 ; Lower abdominal tenderness R10.819 ; Vaginal itching L29.8 and Family history of endometriosis Z84.2 [place] [address] [place] [id number] [place] [address] 08[address]- 2262 01 Oct, 2015 Asthma attack 493.92 ; UTI symptoms R39.9 and Sinusitis 473.9 [facility] [address] [id number] 09 Aug, 2015 Dental examination Z01.20 [place] [id number] [place] [address]- [address] 30 Jul, 2015 Scabies B86 [id number] [address] Jun, Otitis externa of both ears H60.93 [facility] [address] [place] [id number] [place] [address] 11186- 9002 May, Asthma attack 493.92 [facility] [place] [id number] [place] [address] 92872- 6831 Apr, Otitis externa of both ears 380.10 [facility] [place] [address] [place] [id number] [place] [address] 72641- 2736 Apr, Insect bite 919.4 [facility] [place] [address] [place] [id number] [place] [address] 42986- 8369 Apr, Infective otitis externa 380.10 [facility] [place] [address] [place] [id number] [place] [address] 65999- 1510 Mar, Acute sinusitis 461.9 [facility] [place] [address] [place] [id number] [place] [address] 05631- 3909 Mar, Acute pharyngitis 462 [facility] [place] [address] [place] [id number] [place] [address] 73996- 5951 Feb, Otitis media of both ears 382.9 [facility] [place] [address] [address] Feb, Dysuria 788.1 and Urinary tract infection 599.0 [facility] [place] [id number] [place] [address] 31681- 9988 Feb, Dysuria 788.1 [facility] [place] [id number] [place] [address] 97107- 5506 January, Sinusitis 473.9 [facility] [id number] [place] [address] 187329- 8167 Dec, [facility] [address] [address] Dec, [facility] [address] [place] [id number] [address] Nov, [facility] [address] [address] Nov, [facility] [address] [address] Oct, 2014 [facility] [id number] [place] [address] 979584- 4533 Oct, 2014 [facility] [address] [id number] [address] Oct, 2014 [facility] [address] [place] [id number] [place] [address] 930938- 0584 Oct, 2014 [facility] [place] [address] [place] [id number] [place] [address] 35960- 2145 Oct, 2014 [facility] [place] [address] [place] [id number] [place] [address] 09930- 2217 Oct, 2014 [facility] [address] [address] Aug, [facility] [address] [address] Aug, [facility] [address] [address] Aug, [facility] [address] [address] Aug, IMMUNIZATIONS No Known Immunizations SOCIAL HISTORY Never Assessed REASON FOR VISIT Facial/Tooth pain Pt reports a tooth abscess which started about 1 1/2 weeks ago states she has had a root canal on that tooth WINDY Alejandro PLAN OF CARE Activity Details Follow Up prn Reason: VITAL SIGNS Height 59 in 2017-09-17 Weight 89.7 lbs 2017-09-17 Temperature 98.0 degrees Fahrenheit 2017-09-17 Heart Rate 90 bpm 2017-09-17 Respiratory Rate 18 2017-09-17 BMI 18.12 kg/m2 2017-09-17 Blood pressure systolic 104 mmHg 2017-09-17 Blood pressure diastolic 68 mmHg 2017-09-17 MEDICATIONS Medication Instructions Dosage Frequency Start Date End Date Duration Status MiraLax - Orally Once a day 17 grams 24h Aug, Active Azithromycin 250 MG Orally Once a day 2 tablets on the first day, then 1 tablet daily for 4 days 24h 5 day(s) Not-Taking Zyrtec Allergy 10 mg oral daily 1 tablet 24h Active Flonase 50 mcg/act intranasally daily 1 spary each nostril 24h Aug, Active Depo-Provera 150 MG/ML Not-Taking Cipro Not-Taking Fluticasone Propionate 50 MCG/ACT USE ONE SPRAY IN EACH NOSTRIL ONCE DAILY 30 Active Singulair 10 MG Orally Once a [...] with ventilating tube x 2 Surgical History [place] teeth removal 09/01/2015
--- OUTSIDE RECORDS SUMMARY | 2018-06-09 21:27 | XMS REPORT ---
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 Name Role Phone NAPOLEON IVETH Unavailable PROBLEMS Type Condition ICD9-CM Code LYY84-GI Code Onset Dates Condition Status SNOMED Code Problem Ovarian cyst N83.20 Active 36915658 Problem Chronic maxillary sinusitis J32.0 Active 07384749 Problem Exacerbation of asthma, unspecified asthma severity, unspecified whether persistent J45.901 Active 385431520 Problem Mild intermittent asthma without complication J45.20 Active 967014776 Problem Seasonal allergic rhinitis, unspecified allergic rhinitis trigger J30.2 Active 109097102 Problem Slow transit constipation K59.01 Active 83718116 Problem GERD (gastroesophageal reflux disease) K21.9 Active 457308865 ALLERGIES Substance Reaction Event Type Date Status SulfADIAZINE Unknown Drug Allergy Aug, Active Penicillin V Potassium Unknown Drug Allergy Aug, Active ENCOUNTERS Encounter Location Date Diagnosis [place] [address] [address] Feb, [facility] [address] [address] January, Dysuria R30.0 and Pyelonephritis N12 [facility] [address] [address] January, [facility] [address] [address] January, Acute recurrent maxillary sinusitis J01.01 [facility] [address] [address] Dec, [facility] [address] [address] Dec, Lower abdominal pain R10.30 ; Polyuria R35.8 and Earache symptoms in both ears H92.03 [facility] [address] [place] [address] Dec, Gastroenteritis K52.9 [facility] [address] [address] Dec, Dysuria R30.0 ; Yeast infection of the vagina B37.3 and Shaking R25.[address] [address] Nov, Exacerbation of asthma, unspecified asthma severity, unspecified whether persistent J45.901 [facility] [address] [address] Nov, Acute frontal sinusitis, recurrence not specified J01.10 ; Post-nasal drainage R09.82 and Chronic asthma without complication, unspecified asthma severity, unspecified whether persistent J45.909 [facility] [address] [address] Sep, Acute cystitis with hematuria N30.01 and Dysuria R30.0 [facility] [address] [id number] Sep, [address] [address] Sep, Dysuria R30.0 [facility] [address] [id number] Sep, Dental examination Z01.[address] [address] 08 Sep, 2017 Encounter for dental examination and cleaning with abnormal findings Z01.21 [facility] [address] [place] [address] Sep, Tooth pain K08.[address] [address] Sep, Nevoid hyperpigmentation L81.9 [place] [id number] [place] [address] Aug, Nevoid hyperpigmentation L81.[address] [address] Aug, Sore throat J02.9 ; Bronchitis J40 and Irritated nevus D22.[address] [address] Aug, Dysuria R30.0 ; Acute cystitis with hematuria N30.01 ; Vaginal yeast infection B37.3 and Slow transit constipation K59.01 [facility] [address] [address] Jul, [facility] [address] [id number] Jun, Dental examination Z01.20 [facility] [address] [address] Jun, Fluid level behind tympanic membrane of both ears H65.93 [facility] [address] [address] Jun, Potential exposure to STD Z20.2 ; Dysuria R30.0 ; Vaginal discharge N89.8 and Candidiasis of female genitalia B37.3 [facility] [address] [place] [id number] [place] [id number] Jun, Dental examination Z01.20 [facility] [address] [id number] May, Dental examination Z01.20 [facility] [address] [id number] May, Dental examination Z01.20 [facility] [address] [id number] May, Dental examination Z01.20 [facility] [address] [place] [id number] [place] [address] Apr, Dysfunction of both eustachian tubes H69.83 [facility] [address] [place] [id number] [place] [address] Apr, GERD (gastroesophageal reflux disease) K21.9 and Sore throat J02.9 [facility] [address] [id number] Apr, Dental examination Z01.20 [facility] [address] [address] Apr, Asthma exacerbation J45.901 [facility] [address] [id number] Mar, Dental examination Z01.20 [facility] [address] [id number] Feb, Dental examination Z01.20 [facility] [address] [place] [id number] [place] [address] Feb, Middle ear effusion, bilateral H65.93 [facility] [address] [address] Feb, Dysuria R30.0 and Diverticulitis of large intestine without perforation or abscess with bleeding K57.33 [facility] [address] [address] January, Asthma with acute exacerbation in adult J45.901 [facility] [address] [address] January, Dysuria R30.0 ; Vaginal discharge N89.8 and Acute non- recurrent maxillary sinusitis J01.00 [facility] [address] [place] [id number] [place] [address] Dec, [facility] [address] [address] Dec, Sore throat J02.9 ; Acute mucoid otitis media of left ear H65.112 and Acute non-recurrent maxillary sinusitis J01.00 [place] [address] [address] 03 Dec, 2016 Bronchitis J40 [facility] [address] [address] Dec, Shortness of breath R06.02 and Mild intermittent asthma without complication J45.20 [place] [address] [address] Nov, Asthma exacerbation J45.901 and Bronchitis J40 [place] [address] [address] Oct, Acute mucoid otitis media of both ears H65.113 and Acute non -recurrent maxillary sinusitis J01.00 [facility] [address] [id number] Oct, Dental examination Z01.20 [place] [address] [address] Sep, Exposure to influenza Z20.828 and Upper respiratory tract infection, unspecified type J06.9 [facility] [address] [address] Aug, Acute exacerbation of asthma with allergic rhinitis J45.901 [facility] [address] [address] Aug, Burning with urination R30.0 and Hematuria R31.[address] [address] 08 Aug, 2016 Seasonal allergic rhinitis, unspecified allergic rhinitis trigger J30.2 and Dermatitis L30.[address] [address] Jul, Follow up Z09 [place] [address] [address] 15 Jul, 2016 [place] [address] [address] 10 Jul, 2016 Dysuria R30.0 ; Acute vaginitis N76.0 and PID (acute pelvic inflammatory disease) N73.[address] [address] 02 Jul, 2016 Sore throat J02.9 [facility] [address] [place] [address] 16 Jun, 2016 Acute otitis externa of both ears, unspecified type H60.503 [facility] [address] [address] 29 May, 2016 Sore throat J02.9 and Pharyngitis, unspecified etiology J02.9 [facility] [address] [address] Apr, Dysuria R30.0 [facility] [address] [address] Mar, Viral infection B34.9 [facility] [address] [address] Mar, Dermatitis L30.[address] [address] 27 Feb, 2016 Annual physical exam Z00.00 and Screen for STD (sexually transmitted disease) Z11.3 [facility] [address] [address] 13 Feb, 2016 Pain with urination R30.[address] [address] 03 Feb, 2016 Other seasonal allergic rhinitis J30.[address] [address] 29 Nov, 2015 Cough R05 and Viral syndrome B34.9 [place] [address] [place] [id number] [place] [address] 22 Nov, 2015 Oral contraceptive pill surveillance Z30.41 and Left ovarian cyst N83.20 [place] [address] [address] 16 Nov, 2015 Ovarian cyst N83.20 and Otitis media of both ears H66.93 [place] [address] [address] 07 Nov, 2015 Sore throat J02.9 and Streptococcal pharyngitis J02.[address] [address] 17 Oct, 2015 Ovarian cyst N83.20 ; Hematuria R31.9 ; Urinary crystals R82.99 ; Left sided abdominal pain R10.9 and Allergic rhinitis J30.9 [place] [address] [place] [id number] [place] [address] 14 Oct, 2015 [place] [id number] [place] [address] 11 Oct, 2016 Left lower quadrant pain R10.32 ; Dysuria R30.0 ; History of constipation Z87.19 ; Routine screening for STI (sexually transmitted infection) Z11.3 ; CVA tenderness M54.9 ; Lower abdominal tenderness R10.819 ; Vaginal itching L29.8 and Family history of endometriosis Z84.2 [place] [address] [place] [id number] [place] [address] 01 Oct, 2015 Asthma attack 493.92 ; UTI symptoms R39.9 and Sinusitis 473.9 [facility] [address] [place] [id number] [place] [id number] 09 Aug, 2015 Dental examination Z01.20 [place] [id number] [place] [address]- [address] 30 Jul, 2015 Scabies B86 [address] [place] [address]- [address] Jun, Otitis externa of both ears H60.93 [facility] [address] [place] [id number] [place] [address]- [address] May, Asthma attack 493.92 [facility] [address] [place] [id number] [place] [address] Apr, Otitis externa of both ears 380.10 [facility] [address] [place] [id number] [place] [address]- [address] Apr, Insect bite 919.4 [facility] [address] [place] [id number] [place] [address]- [address] Apr, Infective otitis externa 380.10 [facility] [address] [place] [id number] [place] [address]- [address]23 Mar, Acute sinusitis 461.9 [facility] [address] [place] [id number] [place] [address]44- 280[address] Mar, Acute pharyngitis 462 [facility] [address] [place] [id number] [place] [address]- [address]67 Feb, Otitis media of both ears 382.9 [facility] [address] [place] [address]- [address] Feb, Dysuria 788.1 and Urinary tract infection 599.0 [facility] [address] [place] [id number] [place] [address]- [address] Feb, Dysuria 788.1 [facility] [address] [place] [address]- [address] January, Sinusitis 473.9 [facility] [address] [place] [id number] [place] [address]- [address] Dec, [facility] [address] [place] [address] 42549- 6[address] Dec, [facility] [address] [address] Nov, [facility] [address] [facility] [id number] [address] Nov, [facility] [address] [facility] [id number] Oct, [facility] [address] [facility] [id number] [address] Oct, [facility] [address] [facility] [id number] [address] Oct, [facility] [address] [address] Oct, [facility] [address] [address] Oct, [facility] [address] [address] Oct, [facility] [address] [id number] [address] Aug, [facility] [address] [address] Aug, [facility] [address] [id number] [address] Aug, [facility] [address] [id number] Aug, IMMUNIZATIONS No Known Immunizations SOCIAL HISTORY Never Assessed REASON FOR VISIT UTI fu, States she was see in June for UTI in [place] but wasnt treated. Has been to the ER x2 since then and treated for UTI's. , Currently c/o's of stomach pain, lower back pain, dysuria, and nausea. -CODI Leavitt PLAN OF CARE Activity Details Follow Up if not improving with PCP or reg follow up Reason: VITAL SIGNS Height 59 in 2017-08-15 Weight 89 lbs 2017-08-15 Temperature 98.2 degrees Fahrenheit 2017-08-15 Heart Rate 90 bpm 2017-08-15 Respiratory Rate 16 2017-08-15 BMI 17.97 kg/m2 2017-08-15 Blood pressure systolic 100 mmHg 2017-08-15 Blood pressure diastolic 70 mmHg 2017-08-15 MEDICATIONS Medication Instructions Dosage Frequency Start Date End Date Duration Status Zyrtec Allergy 10mg oral daily 1 tablet 24h Active Depo-Provera 150 MG/ML Active MiraLax - Orally Once a day 17 grams 24h Aug, Active Flonase 50 mcg/actuation intranasally daily 1 spary each nostril 24h Aug Active Keflex 500 mg Orally 3 times a day 1 capsule 8h Aug, Aug, 07 days Active Diflucan 150 MG Orally Once a day day one and then last 2 days of antibiotic tx 1 tablet Aug, Aug, 03 days Active Singulair 10 MG Orally Once a day 1 tablet in the evening 24h January, Active ProAir HFA 90 mcg/actuation Inhalation every 4 hrs 2 puffs as needed 4h Aug, Active Cipro Not-Taking RESULTS Name Result Date Reference Range UA W/CULTURE IF INDICATED (IN HOUSE) 2017-08-15 Lot # [id number] Exp date 06/09/2018 Clarity clear Color yellow Odor no GLU negative ESTELA negative KET negative SG 1.030 BLO trace-intact pH 5.5 Protein negative URO 0.2 NIT negative AMANDA 1+ Lot # Exp date PROCEDURES Procedure Date Ordered Result Body Site URINALYSIS, AUTO, W/O SCOPE Aug 15, 2017 INSTRUCTIONS MEDICATIONS ADMINISTERED No Known Medications MEDICAL (GENERAL) HISTORY Type Description Date Medical History asthma Medical History Seasonal allergies Surgical History myringotomy with ventilating tube x 2 Surgical History [place] teeth removal 09/01/2015
--- OUTSIDE RECORDS SUMMARY | 2018-06-09 21:28 | XMS REPORT ---
Author Author NEISHA ARCE Kadi [facility] Address Unknown Care Team Providers Care Dental Aide Name Role Phone NEISHA ARCE Unavailable PROBLEMS Type Condition ICD9-CM Code [id number] Code Onset Dates Condition Status SNOMED Code Problem Exacerbation of asthma, unspecified asthma severity, unspecified whether persistent J45.901 Active 220673245 Problem Slow transit constipation K59.01 Active 38477555 Problem Seasonal allergic rhinitis, unspecified allergic rhinitis trigger J30.2 Active 615486986 Problem Ovarian cyst N83.20 Active 03238887 Problem GERD (gastroesophageal reflux disease) K21.9 Active 391935642 Problem Mild intermittent asthma without complication J45.20 Active 174619640 ALLERGIES Substance Reaction Event Type Date Status Penicillin V Potassium Unknown Drug Allergy Apr, Active ENCOUNTERS Encounter Location Date Diagnosis [facility] [id number] [place] [address]37 Dec, Gastroenteritis K52.9 [facility] [address] [address] Dec, Dysuria R30.0 ; Yeast infection of the vagina B37.3 and Shaking R25.1 [facility] [id number] [place] [address] Nov, Exacerbation of asthma, unspecified asthma severity, unspecified whether persistent J45.901 [facility] [id number] [place] [address] 09 Nov, 2017 Acute frontal sinusitis, recurrence not specified J01.10 ; Post-nasal drainage R09.82 and Chronic asthma without complication, unspecified asthma severity, unspecified whether persistent J45.909 [facility] [id number] [place] [address]246 Sep, Acute cystitis with hematuria N30.01 and Dysuria R30.0 [facility] [id number] [place] [address] [id number] Sep, [place] [address] [address] Sep, Dysuria R30.0 [facility] [id number] [place] [id number] Sep, Dental examination Z01.20 [place] [address] [address] 08 Sep, 2017 Encounter for dental examination and cleaning with abnormal findings Z01.21 [facility] [address] [address] 08 Sep, 2017 Tooth pain K08.[address] [address] Sep, Nevoid hyperpigmentation L81.9 [place] [address] 17[address]- 6164 Aug, Nevoid hyperpigmentation L81.[address] [address]17- 2073 Aug, Sore throat J02.9 ; Bronchitis J40 and Irritated nevus D22.[address] [address]- [address] Aug, Dysuria R30.0 ; Acute cystitis with hematuria N30.01 ; Vaginal yeast infection B37.3 and Slow transit constipation K59.01 [facility] [address] [address] Jul, [facility] [id number] [place] [address] [id number] Jun, Dental examination Z01.20 [facility] [address] [address] Jun, Fluid level behind tympanic membrane of both ears H65.93 [facility] [address] [address] Jun, Potential exposure to STD Z20.2 ; Dysuria R30.0 ; Vaginal discharge N89.8 and Candidiasis of female genitalia B37.3 [facility] [address] [id number] Jun, Dental examination Z01.20 [facility] [address] [id number] May, Dental examination Z01.20 [facility] [address] [id number] May, Dental examination Z01.20 [facility] [address] [id number] May, Dental examination Z01.20 [facility] [address] [id number]- 8752 Apr, Dysfunction of both eustachian tubes H69.83 [facility] [address] [place] [address]327 Apr, GERD (gastroesophageal reflux disease) K21.9 and Sore throat J02.9 [facility] [address] [id number] Apr, Dental examination Z01.20 [facility] [id number] [place] [address]96- 4407 Apr, Asthma exacerbation J45.901 [facility] [address] [id number] Mar, Dental examination Z01.20 [facility] [address] [id number] Feb, Dental examination Z01.20 [facility] [address] [id number] -7961 Feb, Middle ear effusion, bilateral H65.93 [facility] [address] [address]86- [address]46 Feb, Dysuria R30.0 and Diverticulitis of large intestine without perforation or abscess with bleeding K57.33 [place] [address] [address] January, Asthma with acute exacerbation in adult J45.901 [facility] [address] [address] January, Dysuria R30.0 ; Vaginal discharge N89.8 and Acute non- recurrent maxillary sinusitis J01.00 [place] [address] 7[address]76- [address]887 Dec, [place] [address] 65[address]- 1027 Dec, Sore throat J02.9 ; Acute mucoid otitis media of left ear H65.112 and Acute non-recurrent maxillary sinusitis J01.00 [facility] [address] 34988- [address]38 Dec, Bronchitis J40 [facility] [address] [address] Dec, Shortness of breath R06.02 and Mild intermittent asthma without complication J45.20 [facility] [address] 61809[address] Nov, Asthma exacerbation J45.901 and Bronchitis J40 [facility] [address] 66097- 6150 Oct, Acute mucoid otitis media of both ears H65.113 and Acute non -recurrent maxillary sinusitis J01.00 [facility] [address] [id number] 03 Oct, 2016 Dental examination Z01.20 [facility] [address] 8[address]64- 4828 10 Sep, 2016 Exposure to influenza Z20.828 and Upper respiratory tract infection, unspecified type J06.9 [facility] [place] [id number] [place] [address] 27 Aug, 2016 Acute exacerbation of asthma with allergic rhinitis J45.901 [facility] [place] [address] 04[address]5682 15 Aug, 2016 Burning with urination R30.0 and Hematuria R31.[address] [address]- [address] 08 Aug, 2016 Seasonal allergic rhinitis, unspecified allergic rhinitis trigger J30.2 and Dermatitis L30.[address] 96667- 6847 17 Jul, 2016 Follow up Z09 [address] 96052- 4261 15 Jul, 2016 [place] [address] 86251- 2506 10 Jul, 2016 Dysuria R30.0 ; Acute vaginitis N76.0 and PID (acute pelvic inflammatory disease) N73.0 [place] [id number] [place] [address] 95056- 5056 02 Jul, 2016 Sore throat J02.9 [facility] [place] [address] 42689 [address]1444 16 Jun, 2016 Acute otitis externa of both ears, unspecified type H60.503 [facility] [address] [address] 29 May, 2016 Sore throat J02.9 and Pharyngitis, unspecified etiology J02.9 [facility] [address] [address]25 11 Apr, 2016 Dysuria R30.0 [facility] [address] [place] [address] 18 Mar, 2016 Viral infection B34.9 [facility] [address] 87[address]184 07 Mar, 2016 Dermatitis L30.9 [place] [address] 75542- 6712 27 Feb, 2016 Annual physical exam Z00.00 and Screen for STD (sexually transmitted disease) Z11.3 [facility] [address] 23618 [address] 13 Feb, 2016 Pain with urination R30.9 [place] [address] 52541- 9668 03 Feb, 2016 Other seasonal allergic rhinitis J30.2 [place] [address] 72748- 3712 29 Nov, 2015 Cough R05 and Viral syndrome B34.9 [place] [address] 85672- 9871 22 Nov, 2015 Oral contraceptive pill surveillance Z30.41 and Left ovarian cyst N83.20 [place] [address] 12369- 2024 16 Nov, 2015 Ovarian cyst N83.20 and Otitis media of both ears H66.93 [place] [address] [address]40- 2137 07 Nov, 2015 Sore throat J02.9 and Streptococcal pharyngitis J02.0 [place] [address] 06037- 0812 17 Oct, 2015 Ovarian cyst N83.20 ; Hematuria R31.9 ; Urinary crystals R82.99 ; Left sided abdominal pain R10.9 and Allergic rhinitis J30.9 [place] [address] 28356- 1077 14 Oct, 2015 [place] [address] [place] [address]- [address] 11 Oct, 2015 Left lower quadrant pain R10.32 ; Dysuria R30.0 ; History of constipation Z87.19 ; Routine screening for STI (sexually transmitted infection) Z11.3 ; CVA tenderness M54.9 ; Lower abdominal tenderness R10.819 ; Vaginal itching L29.8 and Family history of endometriosis Z84.2 [place] [address] 68[address]- 2587 01 Oct, 2015 Asthma attack 493.92 ; UTI symptoms R39.9 and Sinusitis 473.9 [facility] [address] [id number] Aug, Dental examination Z01.20 [place] [address] 66656- [address]329 Jul, Scabies B86 [place] [address] 12721- 6186 Jun, Otitis externa of both ears H60.93 [place] [address] 33554- 2816 May, Asthma attack 493.92 [place] [address] 88215- 0737 Apr, Otitis externa of both ears 380.10 [place] [id number] [place] [address] 69460- 8003 Apr, Insect bite 919.4 [place] [address] 64702- 8972 Apr, Infective otitis externa 380.10 [place] [address] 73714- 9807 Mar, Acute sinusitis 461.9 [place] [id number] [place] [address] 81823- 6919 Mar, Acute pharyngitis 462 [place] [address] [place] [address]- 1795 Feb, Otitis media of both ears 382.9 [facility] [id number] [place] [address] 48338- 8506 Feb, Dysuria 788.1 and Urinary tract infection 599.0 [facility] [address] [place] [address] 60831- 0796 Feb, Dysuria 788.1 [facility] [id number] [place] [address] 65590- 3320 January, Sinusitis 473.9 [facility] [id number] [place] [address] 01411- 1645 Dec, [facility] [id number] [place] [address] 51429- 7256 Dec, [facility] [id number] [place] [address] 62376- 0716 Nov, [facility] [address] [place] [address] 82737- 4359 Nov, [facility] [address] [place] [address] 77647- 7993 Oct, [facility] [address] [address] Oct, [facility] [address] [address] Oct, [facility] [address] [address] Oct, [facility] [id number] [place] [address] 89434- 4126 Oct, [facility] [address] [address] Oct, [facility] [address] [place] [address] 15312- 7896 Aug, [facility] [address] [facility] [id number] [address] Aug, [facility] [address] [facility] [id number], [place] [address] Aug, [facility] [address] [facility] [id number], [place] [address] Aug, IMMUNIZATIONS No Known Immunizations SOCIAL HISTORY Never Assessed REASON FOR VISIT ENDO #30 PLAN OF CARE Activity Details Follow Up prn Reason:finish endo VITAL SIGNS Blood pressure systolic 108 mmHg 2017-04-20 Blood pressure diastolic 64 mmHg 2017-04-20 MEDICATIONS Medication Instructions Dosage Frequency Start Date End Date Duration Status Singulair 10 MG Orally Once a day 1 tablet in the evening 24h January, Active ProAir HFA 90 mcg/actuation Inhalation every 4 hrs 2 puffs as needed 4h Aug, Active PredniSONE 20 mg Orally Once a day 2 tablets 24h Apr, Apr, 05 days Active Flonase 50 mcg/actuation intranasally daily 1 spary each nostril 24h Aug Active Depo-Provera 150 MG/ML Active Zyrtec Allergy 10mg oral daily 1 tablet 24h Active Zithromax 250 MG Orally Once a day 2 tablets on the first day, then 1 tablet daily for 4 days 24h Apr, Apr, 5 day(s) Active RESULTS No Results PROCEDURES Procedure Date Ordered Result Body Site PULPAL DEBRID PRIMARY Apr 20, 2017 INSTRUCTIONS MEDICATIONS ADMINISTERED No Known Medications MEDICAL (GENERAL) HISTORY Type Description Date Medical History asthma Medical History Seasonal allergies Surgical History myringotomy with ventilating tube x 2 Surgical History Clint teeth removal 09/01/2015
[2018-06-09 21:30] LABS: BASOPHILS % (AUTO) 0 % (0-10); EOSINOPHILS # (AUTO) 0.1 10^3/uL (0.0-0.3); EOSINOPHILS % (AUTO) 1 % (0-10); HEMATOCRIT 39 % (35-52); HEMOGLOBIN 13.6 G/DL (11.5-16.0); LYMPHOCYTES # (AUTO) 3.3 X 10^3 (1.0-4.0); LYMPHOCYTES % (AUTO) 33 % (12-44); MEAN CORPUSCULAR HEMOGLOBIN 31 PG (25-34); MEAN CORPUSCULAR HGB CONC 35 G/DL (32-36); MEAN CORPUSCULAR VOLUME 89 FL (80-99); MEAN PLATELET VOLUME 9.7 FL (7.4-10.4); MONOCYTES # (AUTO) 0.8 X 10^3 (0.0-1.0); MONOCYTES % (AUTO) 8 % (0-12); NEUTROPHILS # (AUTO) 5.8 X 10^3 (1.8-7.8); NEUTROPHILS % (AUTO) 58 % (42-75); PLATELET COUNT 204 10^3/uL (130-400); RED BLOOD COUNT 4.33 10^6/uL (4.35-5.85); RED CELL DISTRIBUTION WIDTH 12.6 % (10.0-14.5); WHITE BLOOD COUNT 10.1 10^3/uL (4.3-11.0)
[2018-06-09] MEDS ORDERED: KETOROLAC 30 MG/ML VIAL IVP ONE (21:30)
[2018-06-09] MEDS ORDERED: ONDANSETRON 4 MG/2 ML (SDV) Z0FRAN IVP ONE (21:30)
--- OUTSIDE RECORDS SUMMARY | 2018-06-09 21:34 | XMS REPORT | Continuity of Care Document ---
Author Author [facility] Address Unknown Phone Unavailable Allergies Active Description Code Type Severity Reaction Onset Reported/Identified Relationship to Patient Clinical Status Yes Penicillins Drug Allergy N/A N/A 08/19/2014 Yes Penicillins [id number] Drug Allergy Unknown N/A 05/12/2015 Yes SULFA [...] LEVEL TO OTH NEC 09/01/2013 LEO MOSER TUBE TELLER Ot 462 ACUTE PHARYNGITIS 03/23/2014 LEO MOSER APRN Ot 465.9 ACUTE URI NOS 08/19/2014 PALOMO TUBE TELLER, JOSE RAMON R 462 ACUTE PHARYNGITIS 08/19/2014 MADL TUBE TELLER, IVETH L 462 ACUTE PHARYNGITIS 08/19/2014 MADL TUBE TELLER, IVETH L 462 ACUTE PHARYNGITIS 08/19/2014 MADL TUBE TELLER, IVETH L 462 ACUTE PHARYNGITIS 08/23/2014 LEO MOSER APRN Ot 780.60 FEVER, UNSPECIFIED 08/23/2014 LEO MOSER TUBE TELLER Ot 789.00 ABDOMINAL PAIN, UNSPECIFIED SITE 09/07/2014 MADL TUBE TELLER, IVETH L 381.01 ACUTE SEROUS OTITIS MEDIA 09/07/2014 MADL TUBE TELLER, IVETH L 477.9 ALLERGIC RHINITIS CAUSE UNSPECIFIED 09/07/2014 MADL TUBE TELLER, IVETH L 493.90 ASTHMA UNSPECIFIED 09/07/2014 MADL TUBE TELLER, IVETH L 381.01 ACUTE SEROUS OTITIS MEDIA 09/07/2014 MADL TUBE TELLER, IVETH L 477.9 ALLERGIC RHINITIS CAUSE UNSPECIFIED 09/07/2014 MADL TUBE TELLER, IVETH L 493.90 ASTHMA UNSPECIFIED 09/07/2014 MADL TUBE TELLER, IVETH L 381.01 ACUTE SEROUS OTITIS MEDIA 09/07/2014 MADL TUBE TELLER, IVETH L 477.9 ALLERGIC RHINITIS CAUSE UNSPECIFIED 09/07/2014 MADL TUBE TELLER, IVETH L 493.90 ASTHMA UNSPECIFIED 10/20/2014 MADL TUBE TELLER, IVETH L 780.60 FEVER UNSPECIFIED 10/20/2014 MADL TUBE TELLER, IVETH L 780.60 FEVER UNSPECIFIED 10/22/2014 MADL TUBE TELLER, IVETH L 465.9 UPPER RESPIRATORY INFECTION 04/09/2015 [...] Z32.02 ENCOUNTER FOR TEST, RESULT NEG 05/21/2016 EDDA SOARES, [place] Joel Ot T63.391A TOXIC EFFECT OF VENOM OF SPIDER, ACCIDEN 05/21/2016 EDDA SOARES, [place]UST[place] Joel Ot Y92.[address] IN [facility] NON-INSTITUT (PRIVATE 05/21/2016 BUNN DO, KAYODE C [...] OF VULVA AND VAGINA 07/26/2016 LEO MOSER TUBE TELLER Ot R21 RASH AND OTHER NONSPECIFIC SKIN [...] Ot R10.30 LOWER ABDOMINAL PAIN, UNSPECIFIED 01/02/2017 LEO MOSER TUBE TELLER Ot R30.0 DYSURIA 01/02/2017 BUNN DO, KAYODE C Ot N83.20 UNSPECIFIED OVARIAN CYSTS 01/02/2017 BUNN DO, KAYODE C Ot R10.11 RIGHT UPPER QUADRANT PAIN 02/22/2017 BUNN DO, KAYODE C Ot N83.20 UNSPECIFIED OVARIAN CYSTS 02/22/2017 BUNN DO, KAYODE C Ot R10.11 RIGHT UPPER QUADRANT PAIN 02/23/2017 Ot J06.9 ACUTE UPPER RESPIRATORY INFECTION, UNSPE 02/23/2017 Ot R22.1 LOCALIZED SWELLING, MASS AND LUMP, NECK 05/14/2017 LEO MOSER APRN Ot J45.909 UNSPECIFIED ASTHMA, UNCOMPLICATED 05/14/2017 LEO MOSER APRN Ot N39.0 URINARY TRACT INFECTION, SITE NOT SPECIF 05/14/2017 LEO MOSER APRN Ot R10.9 UNSPECIFIED ABDOMINAL PAIN 07/04/2017 NAKUL ZEPEDA NUCLEAR DESIGN ENGINEER Ot J45.909 UNSPECIFIED ASTHMA, UNCOMPLICATED 07/04/2017 KATELYN, NAKUL NUCLEAR DESIGN ENGINEER Ot N39.0 URINARY TRACT INFECTION, SITE NOT SPECIF 07/10/2017 KATELYN NAKUL NUCLEAR DESIGN ENGINEER Ot J45.909 UNSPECIFIED ASTHMA, UNCOMPLICATED 07/10/2017 KATELYN, NAKUL NUCLEAR DESIGN ENGINEER Ot N39.0 URINARY TRACT INFECTION, SITE NOT SPECIF 07/26/2017 LEO MOSER APRN Ot J02.9 ACUTE PHARYNGITIS, UNSPECIFIED 07/26/2017 LEO MOSER APRN Ot J06.9 ACUTE UPPER RESPIRATORY INFECTION, UNSPE 07/26/2017 LEO MOSER APRN Ot J45.909 UNSPECIFIED ASTHMA, UNCOMPLICATED 07/26/2017 LEO MOSER APRN Ot N39.0 URINARY TRACT INFECTION, SITE NOT SPECIF 09/26/2017 BUNN DO, KAYODE C Ot N83.20 UNSPECIFIED OVARIAN CYSTS 09/26/2017 BUNN DO, KAYODE C Ot R10.11 RIGHT UPPER QUADRANT PAIN 12/15/2017 BELINDA GRAJEDA Ot J45.909 UNSPECIFIED ASTHMA, UNCOMPLICATED 12/15/2017 BELINDA GRAJEDA Ot N76.0 ACUTE VAGINITIS 12/15/2017 BELINDA GRAJEDA Ot R10.30 LOWER ABDOMINAL PAIN, UNSPECIFIED 12/15/2017 BELINDA GRAJEDA Ot Z87.891 PERSONAL HISTORY OF NICOTINE DEPENDENCE 12/15/2017 BELINDA GRAJEDA Ot Z88.0 ALLERGY STATUS TO PENICILLIN 12/15/2017 EBLINDA GRAJEDA Ot Z88.2 ALLERGY STATUS TO SULFONAMIDES STATUS 12/15/2017 BELINDA GRAJEDA Ot Z96.22 MYRINGOTOMY TUBE(S) STATUS 12/17/2017 BELINDA GRAJEDA Ot J45.909 UNSPECIFIED ASTHMA, UNCOMPLICATED 12/17/2017 BELINDA GRAJEDA Ot N76.0 ACUTE VAGINITIS 12/17/2017 BELINDA GRAJEDA Ot R10.30 LOWER ABDOMINAL PAIN, UNSPECIFIED 12/17/2017 BELINDA GRAJEDA Ot Z87.891 PERSONAL HISTORY OF NICOTINE DEPENDENCE 12/17/2017 BELINDA GRAJEDA Ot Z88.0 ALLERGY STATUS TO PENICILLIN 12/17/2017 BLEINDA GRAJEDA Ot Z88.2 ALLERGY STATUS TO SULFONAMIDES STATUS 12/17/2017 BELINDA GRAJEDA Ot Z96.22 MYRINGOTOMY TUBE(S) STATUS Procedures Code Description [place] [address] STREP A (IN-HOUSE) 08/19/2014 28568 THERAPUTIC INJ SQ/IM 10/20/2014 J3420 B12 VITAMIN [...] CULTURE RESULTS <10,000 Gram Positive Mixed Maryjane [id number] Skin Contaminant [id number] Further Workup done CULTURE SOURCE URINE CULTURE [...] 19:08 CULTURE, URINE, ROUTINE SEE NOTE NRG Complete urinalysis with reflex to culture - 12/15/17 19:28 Urine color determination YELLOW NRG Urine clarity determination SLIGHTLY CLOUDY NRG Urine pH measurement by test [...] urinalysis with reflex to culture NO NRG Amorphous sediment detection in urine sediment by light microscopy FEW BONITA URATES NRG Renal epithelial cells detection in urine sediment by light microscopy NONE NRG Complete blood count (CBC) with automated white blood cell (WBC) differential - 12/15/17 21:10 Blood leukocytes automated count (number/volume) 5.1 10*3/uL 4.3-11.0 Blood erythrocytes automated count (number/volume) 4.14 10*6/uL 4.35-5.85 Venous blood hemoglobin measurement (mass/volume) 12.8 g/dL 11.5-16.0 Blood hematocrit (volume fraction) 36 % 35-52 Automated erythrocyte mean corpuscular volume 88 [foz_us] 80-99 Automated erythrocyte mean corpuscular hemoglobin (mass per erythrocyte) 31 pg 25-34 Automated erythrocyte mean corpuscular hemoglobin concentration measurement ( mass/volume) 35 g/dL 32-36 Automated erythrocyte distribution width ratio 12.4 % 10.0-14.5 Automated blood platelet count (count/volume) 225 10*3/uL 130-400 Automated blood platelet mean volume measurement 9.3 [foz_us] 7.4-10.4 Automated blood neutrophils/100 leukocytes 43 % 42-75 Automated blood lymphocytes/100 leukocytes 43 % 12-44 Blood monocytes/100 leukocytes 12 % 0-12 Automated blood eosinophils/100 leukocytes 2 % 0-10 Automated blood basophils/100 leukocytes 1 % 0-10 Blood neutrophils automated count (number/volume) 2.2 10*3 1.8-7.8 Blood lymphocytes automated count (number/volume) 2.2 10*3 1.0-4.0 Blood monocytes automated count (number/volume) 0.6 10*3 0.0-1.0 Automated eosinophil count 0.1 10*3/uL 0.0-0.3 Automated blood basophil count (count/volume) 0.0 10*3/uL 0.0-0.1 Comprehensive metabolic panel - 12/15/17 21:10 Serum or plasma sodium measurement (moles/volume) 135 mmol/L 135-145 Serum or plasma potassium measurement (moles/volume) 3.4 mmol/L 3.6-5.0 Serum or plasma chloride measurement (moles/volume) 104 mmol/L 98-107 Carbon dioxide 23 mmol/L 21-32 Serum or plasma anion gap determination (moles/volume) 8 mmol/L 5-14 Serum or plasma urea nitrogen measurement (mass/volume) 8 mg/dL 7-18 Serum or plasma creatinine measurement (mass/volume) 0.67 mg/dL 0.60-1.30 Serum or plasma urea nitrogen/creatinine mass ratio 12 NRG Serum or plasma creatinine measurement with calculation of estimated glomerular filtration rate > NRG Serum or plasma glucose measurement (mass/volume) 84 mg/dL 70-105 Serum or plasma calcium measurement (mass/volume) 8.5 mg/dL 8.5-10.1 Serum or plasma total bilirubin measurement (mass/volume) 0.5 mg/dL 0.1-1.0 Serum or plasma alkaline phosphatase measurement (enzymatic activity/volume) 59 U/L 40-136 Serum or plasma aspartate aminotransferase measurement (enzymatic activity/ volume) 18 U/L 5-34 Serum or plasma alanine aminotransferase measurement (enzymatic activity/volume ) 18 U/L 0-55 Serum or plasma protein measurement (mass/volume) 6.5 g/dL 6.4-8.2 Serum or plasma albumin measurement (mass/volume) 4.3 g/dL 3.2-4.5 Lipase - 12/15/17 21:10 Lipase 39 U/L 8-78 Serum or plasma C reactive protein measurement (mass/volume) - 12/15/17 21:10 Serum or plasma C reactive protein measurement (mass/volume) 0.01 mg /dL 0.00-0.50 Bacteria identification in genital specimen by aerobe culture - 12/15/17 21:15 Bacteria identification in genital specimen by aerobe culture NORMAL NRG Microscopic examination by wet preparation - 12/15/17 21:15 WET PREP RESULTS 2132 BY RT/KD NRG Neisseria gonorrhoeae DNA detection by probe and signal amplification method - 12/15/17 21:15 Gonorrhea amp DNA-urine Not Detected Not Detected Chlamydia trachomatis DNA detection by probe and signal amplification method - 12/15/17 21:15 Chlamydia trachomatis DNA detection by probe and target amplification method Not Detected Not Detected CULTURE, URINE - 02/06/18 16:04 CULTURE, URINE, ROUTINE SEE NOTE NRG CULTURE, THROAT - 04/04/18 16:13 CULTURE, THROAT SEE NOTE NRG CULTURE, GENITAL - 04/04/18 16:13 CULTURE, GENITAL SEE NOTE NRG SUREPATH PAP RFX HPV mRNA E6/E7 - 04/04/18 16:13 CLINICAL INFORMATION: NRG LMP: 03/21/18 NRG PREV. PAP: NONE NRG PREV. BX: NRG SOURCE: Cervix NRG STATEMENT OF ADEQUACY: NRG INTERPRETATION/RESULT: NRG LITIGATION COORDINATOR: NRG INFECTION: NRG COMMENT NRG Encounters ACCT No. Visit Date/Time Discharge Status Pt. Type Provider Facility Loc./Unit Complaint [id number] 10/22/2014 13:30:00 10/22/2014 23:59:59 CLS Outpatient IVETH BENDER APRN [id number] 10/20/2014 09:21:00 10/20/2014 23:59:59 CLS Outpatient IVETH BENDER APRN [id number] 09/07/2014 15:17:00 09/07/2014 23:59:59 CLS Outpatient IVETH BENDER APRN [id number] 08/19/2014 13:29:00 08/19/2014 23:59:59 [facility] Outpatient JOSE RAMON PALOMO APRN [id number] 07/01/2017 12:06:00 Document Registration [id number] 08/26/2016 07:05:00 Document Registration [id number] 06/14/2015 03:00:16 [place] Document Registration [id number] 12/15/2017 19:20:00 12/15/2017 21:49:00 DIS Emergency BELINDA GRAJEDA [facility] ER ABDOMEN PAIN [id number] 07/26/2017 18:15:00 07/26/2017 19:55:00 DIS Emergency LEO MOSER APRN [facility] ER SINUS PROBLEMS;COUGH; POSSIBLE UTI [id number] 07/04/2017 19:52:00 07/04/2017 23:20:00 DIS Emergency NAKUL ZEPEDA [facility] ER RT SIDED ABD PAIN [id number] 05/14/2017 12:55:00 05/14/2017 13:36:00 DIS Emergency LEO MOSER APRN [facility] ER THINKS SHE HAS A UTI [id number] 12/31/2016 21:07:00 12/31/2016 21:43:00 DIS Emergency LEO MOSER APRN [facility] ER ABD PAIN, BLOOD IN URINE, FREQUENT URINATION [id number] 10/14/2016 17:39:00 10/14/2016 21:00:00 DIS Emergency BELINDA GRAJEDA [facility] ER ABD SWELLING/PAIN/ NAUSEA/UTI [id number] 09/25/2016 01:44:00 09/25/2016 02:16:00 DIS Emergency LAURIE DIAZ MD [facility] ER LEGS NUMB, BODY SHAKES , CHEST PAIN [id number] 08/30/2016 05:32:00 08/30/2016 09:11:00 DIS Emergency LAURIE DIAZ MD [facility] ER L SIDE PAIN [id number] 07/25/2016 10:54:00 07/25/2016 11:12:00 DIS Emergency LEO MOSER APRN [facility] ER POSS MED REACTION FACIAL SWELLING/RASH [id number] 07/21/2016 12:33:00 07/21/2016 16:48:00 DIS Emergency ABBY ROMO DO [facility] ER ABD PAIN [id number] 07/17/2016 13:42:00 07/17/2016 23:59:59 CLS Emergency LEO MOSER APRN [facility] ER SORE THROAT SWOLLEN GLANDS BLISTERS IN MOUTH [id number] 05/21/2016 01:58:00 05/21/2016 02:58:00 DIS Emergency AUSTIN BAÑUELOS MD [facility] ER R LEG BUG BITE [id number] 04/28/2016 19:55:00 04/28/2016 20:28:00 DIS Emergency LEO MOSER APRN [facility] ER CONGESTION,FEVER,POSSIBLE [id number] 03/30/2016 19:48:00 03/30/2016 20:50:00 DIS Emergency BELINDA GRAJEDA [facility] ER RASH ON LEFT ARM [id number] 02/22/2016 22:56:00 02/22/2016 23:42:00 DIS Emergency ABBY ROMO DO [facility] ER TONGUE SWELLING AND BLISTERS [id number] 01/10/2016 10:57:00 01/10/2016 23:59:59 CLS Outpatient KAYODE BUNN DO [facility] RAD CHRONIC RUQ PAIN,OVARIAN CYST [id number] 12/14/2015 19:55:00 12/14/2015 21:25:00 DIS Emergency LAURIE DIAZ MD [facility] ER CP,SOA [id number] 06/14/2015 02:40:00 06/14/2015 03:11:00 DIS Emergency HEATHER SORAES, ROSANNE Miranda [facility] ER CONGESTION [id number] 05/12/2015 21:12:00 05/12/2015 23:08:00 DIS Emergency ABBY ROMO DO [facility] ER POSSIBLE ALLERGIC REACTION TO MEDS [id number] 04/09/2015 05:54:00 04/09/2015 08:30:00 DIS Emergency BRIGITTE SOARES, DARION Berry [facility] ER POSS UTI,ABD PAIN [id number] 08/23/2014 15:42:00 08/23/2014 17:41:00 DIS Emergency LEO MOSER APRN [facility] ER FEVER ABD PAIN [id number] 07/07/2014 18:58:00 07/07/2014 23:59:59 CLS Outpatient YAMIL WELDON NUCLEAR DESIGN ENGINEER [facility] QUICK UA CULTURE [id number] 03/23/2014 20:51:00 03/23/2014 21:04:00 DIS Emergency LEO MOSER APRN [facility] ER EAR PAIN [id number] 09/01/2013 20:30:00 09/01/2013 21:01:00 DIS Emergency LEO MOSER TUBE TELLER [facility] ER MULTIPLE COMPLAINTS [id number] 07/09/2013 17:22:00 07/09/2013 20:11:00 DIS Emergency BELINDA GRAJEDA [facility] ER FALL WITH HEAD INJ [id number] 03/14/2013 15:39:00 03/14/2013 23:59:59 CLS Outpatient KATINA ALLAN NUCLEAR DESIGN ENGINEER [facility] QUICK UTI [id number] 03/11/2013 13:22:00 03/11/2013 23:59:59 CLS Outpatient MAJOR, KENNEDY NUCLEAR DESIGN ENGINEER [facility] QUICK EAR PAIN SINUS [id number] 09/26/2017 07:20:00 Document Registration [id number] 09/26/2017 07:20:00 Document Registration [id number] 09/26/2017 07:20:00 Document Registration [id number] 06/23/2015 13:15:00 Document Registration [id number] 07/17/2012 12:53:00 Document Registration [id number] 04/27/2012 21:37:00 Document Registration [id number] 06/05/2011 18:36:00 Document Registration [id number] 03/18/2011 14:53:00 Document Registration [id number] 02/24/2011 16:50:00 Document Registration [id number] 12/24/2010 15:31:00 Document Registration [id number] 10/27/2010 09:46:00 Document Registration [id number] 07/24/2016 05:05:00 Document Registration [id number] 03/02/2017 03:07:00 Document Registration [id number] 05/15/2018 19:10:00 05/15/2018 23:59:59 CLS Outpatient MARILEE MEJIA [facility] [id number] 04/04/2018 10:40:00 Document Registration [id number] 02/06/2018 15:00:00 Document Registration [id number] 10/10/2017 18:55:00 Document Registration [id number] 10/02/2017 10:00:00 Document Registration [id number] 08/28/2017 16:00:00 Document Registration [id number] 06/28/2017 14:10:00 Document Registration [id number] 10/14/2016 16:13:00 10/14/2016 23:59:00 DIS Outpatient Abner Middleton [id number] 10/14/2016 15:58:00 10/14/2016 23:59:00 DIS Outpatient Abner Middleton
[2018-06-09 21:36] LABS: BILIRUBIN,URINE NEGATIVE (NEGATIVE); CLARITY,URINE SLIGHTLY CLOUDY; COLOR,URINE YELLOW; GLUCOSE, URINE (UA) NEGATIVE (NEGATIVE); KETONES,URINE NEGATIVE (NEGATIVE); LEUKOCYTE ESTERASE ,URINE 1+ (NEGATIVE); NITRITE,URINE NEGATIVE (NEGATIVE); PH,URINE 8 (5-9); PROTEIN,URINE 1+ (NEGATIVE); UROBILINOGEN,URINE NORMAL (NORMAL)
[2018-06-09 21:49] LABS: ALANINE AMINOTRANSFERASE 15 U/L (0-55); ALBUMIN 4.6 GM/DL (3.2-4.5); ALKALINE PHOSPHATASE 84 U/L (40-136); BILIRUBIN,TOTAL 0.3 MG/DL (0.1-1.0); BUN/CREATININE RATIO 17; CALCIUM 9.3 MG/DL (8.5-10.1); CARBON DIOXIDE 22 MMOL/L (21-32); CHLORIDE 104 MMOL/L (98-107); CREATININE SERUM 0.69 MG/DL (0.60-1.30); GFR ESTIMATED > 60; GLUCOSE 96 MG/DL (70-105); LIPASE 70 U/L (8-78); POTASSIUM 4.1 MMOL/L (3.6-5.0); SODIUM 138 MMOL/L (135-145); TOTAL PROTEIN 7.6 GM/DL (6.4-8.2)
[2018-06-09 21:49] LABS: BACTERIA,URINE LARGE /HPF
[2018-06-09 22:27] VITALS: BP 98/59
--- NOTE | 2018-06-10 08:11 | Diagnostic Imaging Report ---
INDICATION: Abdominal pain. COMPARISON: None available. FINDINGS: Lungs are clear. No pleural effusion or pneumothorax. Normal cardiomediastinal silhouette. No free intraperitoneal air. Nonobstructive bowel gas pattern. A moderate amount of colonic stool is present. Normal regional skeleton. IMPRESSION: 1. Nonobstructive bowel gas pattern. 2. Moderate volume of colonic stool. 3. No acute cardiopulmonary process. Dictated by: Dictated on workstation # [id number]
== END 2018-06-09 22:32 | disposition home or self-care (01) ==
LOC: EDUNIT# 21:08 → ER 21:08
DX: K59.00 Constipation, unspecified (principal); J45.909 Unspecified asthma, uncomplicated; Z88.0 Allergy status to penicillin; Z88.2 Allergy status to sulfonamides
CPT/HCPCS: 36415; 74022; 80053; 81000; 83690; 84703; 85025; 87088

== ENCOUNTER 2018-08-05 16:55 | Emergency (ER) | payer SELFPAY ==
[~2018-08-05] VITALS: Ht 149.9 cm; Wt 36.3 kg
[~2018-08-05 16:55] MED LIST changes: +METR-197 PO; -METR500T21 PO
[2018-08-05 17:15] LABS: BILIRUBIN,URINE NEGATIVE (NEGATIVE); CLARITY,URINE CLEAR; COLOR,URINE YELLOW; GLUCOSE, URINE (UA) NEGATIVE (NEGATIVE); KETONES,URINE NEGATIVE (NEGATIVE); LEUKOCYTE ESTERASE ,URINE 1+ (NEGATIVE); NITRITE,URINE NEGATIVE (NEGATIVE); PH,URINE 8 (5-9); PROTEIN,URINE 1+ (NEGATIVE); UROBILINOGEN,URINE NORMAL (NORMAL)
[2018-08-05 17:33] LABS: BACTERIA,URINE FEW /HPF
[2018-08-05 17:34] LABS: WBC,URINE 0-2 /HPF
[2018-08-05] MEDS ORDERED: CEFU500T63 PO (17:36)
[2018-08-05] MEDS ORDERED: ONDA4TAB11 PO (17:36)
--- NOTE | 2018-08-05 17:37 | ED GU-Female ---
General Chief Complaint: Abdominal/GI Problems Stated Complaint: UTI/ABD AND BACK PAIN/N/V Nursing Triage Note: PT PRESENTS TO ER WITH COMPLAINT OF ABD PAIN, NAUSEA, VOMITING, AND UTI SYMPTOMS SINCE SUNDAY OF LAST WEEK. STATES THE SYMPTOMS WORSENED ON SUNDAY. Nursing Sepsis Screen: No Definite Risk Source: patient Exam Limitations: no limitations History of Present Illness Date Seen by Provider: Aug 05, 2018 Time Seen by Provider: 17:34 Initial Comments To ER for private vehicle with reports of suprapubic abdominal pain, nausea, vomiting, burning on urination, chills. These began 2 days ago. She suspects a urinary tract infection. Timing/Duration: just prior to arrival Severity/Quality: moderate Location: suprapubic Associated Symptoms: dysuria, fever/chills, nausea/vomiting Allergies and Home Medications Allergies Coded Allergies: Penicillins (Unverified Allergy, Unknown, 05/12/15) Uncoded Allergies: SULFA (Adverse Reaction, Unknown, N/V, 05/16/17) Home Medications Cefuroxime Axetil 250 Mg Tablet, 250 MG PO BID Prescribed by: LEO MOSER on 07/26/171951 Cetirizine HCl 10 Mg Capsule, 10 MG PO DAILY, (Reported) D-Methorphan Hb/P-Epd HCl/Bpm 118 Ml Syrup, 5 ML PO Q6H PRN for CONGESTION Prescribed by: LEO MOSER on 07/26/171951 Metronidazole 500 Mg Tablet, 500 MG PO BID Prescribed by: BELINDA CUELLAR on 12/15/172133 Montelukast Sodium 10 Mg Tablet, 10 MG PO DAILY, (Reported) Phenazopyridine HCl 100 Mg Tablet, 100 MG PO Q6H PRN for PAIN-MILD TO MODERATE Prescribed by: BELINDA CUELLAR on 12/15/172133 Patient Home Medication List Home Medication List Reviewed: Yes Review of Systems Review of Systems Constitutional: see HPI, chills, fever EENTM: see HPI Respiratory: no symptoms reported Cardiovascular: no symptoms reported Genitourinary: see HPI, dysuria, pain Musculoskeletal: no symptoms reported Skin: no symptoms reported Psychiatric/Neurological: No Symptoms Reported Endocrine: No Symptoms Reported Past Mopnyfz-Ayulid-Zprlhh Hx Patient Social History Alcohol Use: Denies Use Recreational Drug Use: No Smoking Status: Former Smoker Type Used: Cigarettes 2nd Hand Smoke Exposure: No Recent Foreign Travel: No Contact w/Someone Who Travel: No Recent Infectious Disease Expo: No Recent Hopitalizations: No Immunizations Up To Date Tetanus Booster (TDap): Less than 5yrs Seasonal Allergies Seasonal Allergies: Yes Past Medical History Surgeries: Yes (TUBES IN EARS ) Respiratory: Yes Asthma Cardiac: No Neurological: No Reproductive Disorders: No Sexually Transmitted Disease: No Gastrointestinal: No Musculoskeletal: No Fractures Endocrine: No Cancer: No Psychosocial: No Integumentary: No Blood Disorders: No Family Medical History No Pertinent Family Hx Physical Exam Vital Signs Vital Signs - First Documented 08/05/18 17:02 Temp 97.0 Pulse 86 Resp 20 B/P (MAP) 119/75 (90) Pulse Ox 100 O2 Delivery Room Air Capillary Refill : Less Than 3 Seconds Height, Weight, BMI Height: 4'11.00" Weight: 80lbs. 12oz. 36.653194wz; 16.16 BMI Method:Stated General Appearance: WD/WN, no apparent distress HEENT: PERRL/EOMI, normal ENT inspection Neck: non-tender, full range of motion Respiratory: normal breath sounds, no respiratory distress, no accessory muscle use Gastrointestinal: normal bowel sounds, soft, tenderness (suprapubic) Extremities: normal range of motion, non-tender Neurologic/Psychiatric: alert, normal mood/affect, oriented x 3 Skin: normal color, warm/dry Progress/Results/Core Measures Suspected Sepsis Recent Fever Within 48 Hours: No Infection Criteria Present: None New/Unexplained Altered Menta: No Sepsis Screen: No Definite Risk SIRS Temperature:97.0 Pulse: 86 Respiratory Rate: 20 Blood Pressure 119 /75 Mean: 90 Results/Orders Lab Results Laboratory Tests Test 08/05/18 17:08 Range/Units My Orders Orders - LEO MOSER APRN Ua Culture If Indicated (08/05/18 17:07) Urine Bedside (08/05/18 17:07) Vital Signs/I&O 08/05/18 17:02 Temp 97.0 Pulse 86 Resp 20 B/P (MAP) 119/75 (90) Pulse Ox 100 O2 Delivery Room Air Capillary Refill : Less Than 3 Seconds Blood Pressure Mean: 90 Point of Care Testing Urine -Bedside: Negative Departure Communication (Admissions) She is not hypotensive, tachycardic or febrile. Lab work is not indicated at this time. Impression Primary Impression: Urinary tract infection Disposition: HOME, SELF-CARE Condition: Stable Departure-Patient Inst. Decision time for Depature: 17:35 Referrals: [facility]/DANIA (PCP) Primary Care Physician IVETH BENDER (Family) Primary Care Physician Patient Instructions: Urinary Tract Infection, Adult (DC) Add. Discharge Instructions: 1. Drink plenty of fluids 2. Follow-up with your doctor next week 3. Antibiotics as directed. All discharge instructions reviewed with patient and /or family. Voiced understanding. Scripts Ondansetron (Ondansetron Odt) 4 Mg Tab.rapdis 4 MG PO Q4H PRN for NAUSEA/VOMITING, #14 TAB Prov: LEO MOSER APRN 08/05/18 Cefuroxime Axetil (Cefuroxime) 500 Mg Tablet 500 MG PO BID, #10 TAB Prov: LEO MOSER APRN 08/05/18 Work/School Note: Work Release Form Date Seen in the Emergency Department: Aug 05, 2018 Return to Work: Aug 06, 2018 LEO MOSER APRN Aug 05, 2018 17:37
--- OUTSIDE RECORDS SUMMARY | 2018-08-05 17:51 | XMS REPORT ---
Author Author MARILEE MEJIA [facility] Address [address] [place] [address] Care Team Providers Care Public Interviewer Name Role Phone MARILEE MEJIA Unavailable PROBLEMS Type Condition ICD9-CM Code QBE08-FH Code Onset Dates Condition Status SNOMED Code Problem Ovarian cyst N83.20 Active 27996135 Problem Mild intermittent asthma without complication J45.20 Active 483548338 Problem Seasonal allergic rhinitis, unspecified allergic rhinitis trigger J30.2 Active 734062255 Problem Moderate persistent asthma without complication J45.40 Active 081230121 Problem Gastroesophageal reflux disease, esophagitis presence not specified K21.9 Active 713705402 Problem Slow transit constipation K59.01 Active 56633487 Problem GERD (gastroesophageal reflux disease) K21.9 Active 483401024 Problem Chronic maxillary sinusitis J32.0 Active 85379682 Problem Exacerbation of asthma, unspecified asthma severity, unspecified whether persistent J45.901 Active 074480619 ALLERGIES No Information ENCOUNTERS Encounter Location Date Diagnosis [facility] [id number] [place] [address] 45450- 7808 Jun, [facility] [id number] [place] [address] 57483- 6787 17 Jun, 2018 Acute recurrent maxillary sinusitis J01.01 ; Seasonal allergic rhinitis, unspecified allergic rhinitis trigger J30.2 ; Gastroesophageal reflux disease, esophagitis presence not specified K21.9 ; Chronic constipation K59.09 and Moderate persistent asthma without complication J45.40 [facility] [id number] [place] [address] 86516- 9477 10 Jun, 2018 Viral upper respiratory tract infection J06.9 [facility] [id number] [place] [address] 41868 -9811 05 May, 2018 Dysuria R30.0 and Cyst of right ovary N83.201 [facility] [id number] [place] [address] 96550- 3030 Apr, [place] [address] 80605- 7119 Apr, [place] [address] 03938- 0914 Mar, [place] [address] 85496- 6808 Mar, [place] [address] 32985- 7870 Mar, Sore throat J02.9 ; Dysuria R30.0 ; Vaginal discharge N89.8 ; Screening for HPV (human papillomavirus) Z11.51 ; Gastroesophageal reflux disease, esophagitis presence not specified K21.9 and Chronic constipation K59.09 [place] [address] 14912- 8949 Feb, [place] [address] 03697- 4650 January, Dysuria R30.0 and Pyelonephritis N12 [place] [address] 77683- 2490 January, [place] [address] 58881- 6196 January, Acute recurrent maxillary sinusitis J01.01 [place] [id number] [place] [address] 15180- 7562 Dec, [place] [address] 88367- 4132 Dec, Lower abdominal pain R10.30 ; Polyuria R35.8 and Earache symptoms in both ears H92.03 [facility] [id number] [place] [address] 24573 -3152 Dec, Gastroenteritis K52.9 [facility] [address] 62328 -9674 Dec, Dysuria R30.0 ; Yeast infection of the vagina B37.3 and Shaking R25.1 [place] [address] 59946- 5055 Nov, Exacerbation of asthma, unspecified asthma severity, unspecified whether persistent J45.901 [facility] [address] 99[address] -3201 Nov, Acute frontal sinusitis, recurrence not specified J01.10 ; Post-nasal drainage R09.82 and Chronic asthma without complication, unspecified asthma severity, unspecified whether persistent J45.909 [facility] [address] 10533 -6968 Sep, Acute cystitis with hematuria N30.01 and Dysuria R30.0 [facility] [address] [id number] Sep, [address] 58364- 1259 Sep, Dysuria R30.0 [facility] [address] [id number] Sep, Dental examination Z01.[address] 54305- 9449 08 Sep, 2017 Encounter for dental examination and cleaning with abnormal findings Z01.21 [facility] [address] 46866 -4822 Sep, Tooth pain K08.[address] 80451- 8173 Sep, Nevoid hyperpigmentation L81.[address] 70602- 3237 Aug, Nevoid hyperpigmentation L81.9 [place] [id number] [place] [address] 09690- 0153 Aug, Sore throat J02.9 ; Bronchitis J40 and Irritated nevus D22.9 [place] [id number]- 2394 Aug, Dysuria R30.0 ; Acute cystitis with hematuria N30.01 ; Vaginal yeast infection B37.3 and Slow transit constipation K59.01 [facility] [address] 05825 -3656 Jul, [facility] [address] [id number] Jun, Dental examination Z01.20 [facility] [address] 09886 -7424 Jun, Fluid level behind tympanic membrane of both ears H65.93 [facility] [address] 66403 -1155 Jun, Potential exposure to STD Z20.2 ; Dysuria R30.0 ; Vaginal discharge N89.8 and Candidiasis of female genitalia B37.3 [facility] [address] [id number] Jun, Dental examination Z01.20 [facility] [address] [id number] May, Dental examination Z01.20 [facility] [address] [id number] May, Dental examination Z01.20 [facility] [address] [id number] May, Dental examination Z01.20 [facility] [address] 47372- 4267 Apr, Dysfunction of both eustachian tubes H69.83 [facility] [address] 07813 -2493 Apr, GERD (gastroesophageal reflux disease) K21.9 and Sore throat J02.9 [facility] [id number] [place] [address] [id number] Apr, Dental examination Z01.20 [facility] [id number] [place] [address] 18380- 6566 Apr, Asthma exacerbation J45.901 [facility] [id number] [place] [address] [id number] Mar, Dental examination Z01.20 [facility] [id number] [place] [address] [id number] Feb, Dental examination Z01.20 [facility] [id number] [place] [address] 46096 -3580 Feb, Middle ear effusion, bilateral H65.93 [facility] [address] 47108- 3084 Feb, Dysuria R30.0 and Diverticulitis of large intestine without perforation or abscess with bleeding K57.33 [facility] [address] 75793- 8195 January, Asthma with acute exacerbation in adult J45.901 [facility] [id number] [place] [address] 24691- 1092 January, Dysuria R30.0 ; Vaginal discharge N89.8 and Acute non- recurrent maxillary sinusitis J01.00 [facility] [id number] [place] [address] 11295- 0300 Dec, [facility] [address] 79541- 7339 Dec, Sore throat J02.9 ; Acute mucoid otitis media of left ear H65.112 and Acute non-recurrent maxillary sinusitis J01.00 [facility] [address] 90978- 2530 Dec, Bronchitis J40 [facility] [id number] [place] [address] 95819 -6759 Dec, Shortness of breath R06.02 and Mild intermittent asthma without complication J45.20 [facility] [id number] [place] [address] 97319- 8576 Nov, Asthma exacerbation J45.901 and Bronchitis J40 [place] [address] 17151- 2976 Oct, Acute mucoid otitis media of both ears H65.113 and Acute non -recurrent maxillary sinusitis J01.00 [facility] [address] [id number] Oct, 2016 Dental examination Z01.20 [place] [address] 33440- 8261 Sep, Exposure to influenza Z20.828 and Upper respiratory tract infection, unspecified type J06.9 [facility] [place] [id number] [place] [address] 97612 -5261 Aug, Acute exacerbation of asthma with allergic rhinitis J45.901 [facility] [place] [id number] [place] [address] 60104 -4751 Aug, Burning with urination R30.0 and Hematuria R31.[address] 75225- 0708 08 Aug, 2016 Seasonal allergic rhinitis, unspecified allergic rhinitis trigger J30.2 and Dermatitis L30.[address] 33778- 6113 17 Jul, 2016 Follow up Z09 [place] [address] 89697- 1151 15 Jul, 2016 [place] [id number] [place] [address] 14934- 6544 Jul, Dysuria R30.0 ; Acute vaginitis N76.0 and PID (acute pelvic inflammatory disease) N73.0 [place] [address] 67182- 5554 02 Jul, 2016 Sore throat J02.9 [facility] [place] [address] 14078 -0007 16 Jun, 2016 Acute otitis externa of both ears, unspecified type H60.503 [facility] [place] [address] 24185 -8862 May, Sore throat J02.9 and Pharyngitis, unspecified etiology J02.9 [facility] [address] 82133 -2448 Apr, Dysuria R30.0 [facility] [address] 77716 -7114 18 Mar, 2016 Viral infection B34.9 [facility] [place] [address] 17484 -6955 07 Mar, 2016 Dermatitis L30.9 [place] [address] 61856- 6492 27 Feb, 2016 Annual physical exam Z00.00 and Screen for STD (sexually transmitted disease) Z11.3 [facility] [address] 86186 -2399 13 Feb, 2016 Pain with urination R30.9 [place] [address] 38562- 6437 03 Feb, 2016 Other seasonal allergic rhinitis J30.2 [place] [address] 71143- 5958 29 Nov, 2016 Cough R05 and Viral syndrome B34.9 [place] [address] 94712- 7310 Nov, 2016 Oral contraceptive pill surveillance Z30.41 and Left ovarian cyst N83.20 [place] [id number] [place] [address] 78571- 8500 16 Nov, 2015 Ovarian cyst N83.20 and Otitis media of both ears H66.93 [place] [id number] [place] [address] 66933- 1850 07 Nov, 2015 Sore throat J02.9 and Streptococcal pharyngitis J02.0 [place] [address] 73631- 0572 17 Oct, 2015 Ovarian cyst N83.20 ; Hematuria R31.9 ; Urinary crystals R82.99 ; Left sided abdominal pain R10.9 and Allergic rhinitis J30.9 [place] [address] 52531- 7194 14 Oct, 2015 [place] [address] 17452- 3906 11 Oct, 2015 Left lower quadrant pain R10.32 ; Dysuria R30.0 ; History of constipation Z87.19 ; Routine screening for STI (sexually transmitted infection) Z11.3 ; CVA tenderness M54.9 ; Lower abdominal tenderness R10.819 ; Vaginal itching L29.8 and Family history of endometriosis Z84.2 [place] [id number] [place] [address] 41793- 2281 01 Oct, 2015 Asthma attack 493.92 ; UTI symptoms R39.9 and Sinusitis 473.9 [facility] [id number] [place] [address] [id number] 09 Aug, 2015 Dental examination Z01.20 [place] [id number] [place] [address] 09888- 1142 Jul, Scabies B86 [place] [address] 69336- 6050 Jun, Otitis externa of both ears H60.93 [place] [id number] [place] [address] 29838- 5444 May, Asthma attack 493.92 [facility] [address] [address]- [address] Apr, Otitis externa of both ears 380.10 [facility] [id number] [place] [address] 18025- 2659 Apr, Insect bite 919.4 [facility] [id number] [place] [address] 15603- 1894 Apr, Infective otitis externa 380.10 [facility] [id number] [place] [address] 66139- 6077 Mar, Acute sinusitis 461.9 [facility] [id number] [place] [address] 76623- 7643 Mar, Acute pharyngitis 462 [facility] [id number] [place] [address] 17806- 7600 Feb, Otitis media of both ears 382.9 [facility] [id number] [place] [address] 84155- 2971 Feb, Dysuria 788.1 and Urinary tract infection 599.0 [facility] [id number] [place] [address] 18829- 9334 Feb, Dysuria 788.1 [facility] [id number] [place] [address] 41650- 8362 January, Sinusitis 473.9 [facility] [address] [place] [address] 67671- 6913 Dec, [facility] [id number] [place] [address] 91593- 2666 Dec, [facility] [id number] [place] [address] 357034- 0282 Nov, [facility] [address] [place] [address] 40788- 5662 Nov, [facility] [id number] [address]- 8046 Oct, 2014 [facility] [address] [address]- 3994 Oct, 2014 [facility] [address] [address]- 7370 Oct, 2014 [facility] [address] [address]- 9416 Oct, 2014 [facility] [address] [place] [address] 69745- 6681 Oct, 2014 [facility] [address] [place] [address] 156198- 4482 Oct, 2014 [facility] [address] [address]- 6302 Aug, [facility] [address] [address]- 6325 Aug, [facility] [address] [address]- 3474 Aug, [facility] [address] [address]- 4694 Aug, IMMUNIZATIONS No Known Immunizations SOCIAL HISTORY Never Assessed REASON FOR VISIT Requests return call PLAN OF CARE VITAL SIGNS MEDICATIONS Medication Instructions Dosage Frequency Start Date End Date Duration Status Fluconazole 150 MG Orally one time, repeat dose in 72 hour 1 tablet Jun, Jun, 2 doses Active RESULTS No Results PROCEDURES No Known procedures INSTRUCTIONS MEDICATIONS ADMINISTERED No Known Medications MEDICAL (GENERAL) HISTORY Type Description Date Medical History asthma Medical History Seasonal allergies Surgical History myringotomy with ventilating tube x 2 Surgical History [place] teeth removal 09/01/2015
[2018-08-05 18:04] VITALS: BP 119/75
--- OUTSIDE RECORDS SUMMARY | 2018-08-05 18:08 | XMS REPORT | Continuity of Care Document ---
Author Author [facility] Address Unknown Phone Unavailable Allergies Active Description Code Type Severity Reaction Onset Reported/Identified Relationship to Patient Clinical Status Yes Penicillins Drug Allergy N/A N/A 08/19/2014 Yes Penicillins [id number] Drug Allergy Unknown N/A 05/12/2015 Yes SULFA [...] LEVEL TO OTH NEC 09/01/2013 LEO MOSER HEAVY TRUCK MECHANIC Ot 462 ACUTE PHARYNGITIS 03/23/2014 LEO MOSER APRN Ot 465.9 ACUTE URI NOS 08/19/2014 PALOMO HEAVY TRUCK MECHANIC, JOSE RAMON R 462 ACUTE PHARYNGITIS 08/19/2014 MADL HEAVY TRUCK MECHANIC, IVETH L 462 ACUTE PHARYNGITIS 08/19/2014 MADL HEAVY TRUCK MECHANIC, IVETH L 462 ACUTE PHARYNGITIS 08/19/2014 MADL HEAVY TRUCK MECHANIC, IVETH L 462 ACUTE PHARYNGITIS 08/23/2014 LEO MOSER APRN Ot 780.60 FEVER, UNSPECIFIED 08/23/2014 LEO MOSER HEAVY TRUCK MECHANIC Ot 789.00 ABDOMINAL PAIN, UNSPECIFIED SITE 09/07/2014 MADL HEAVY TRUCK MECHANIC, IVETH L 381.01 ACUTE SEROUS OTITIS MEDIA 09/07/2014 MADL HEAVY TRUCK MECHANIC, IVETH L 477.9 ALLERGIC RHINITIS CAUSE UNSPECIFIED 09/07/2014 MADL HEAVY TRUCK MECHANIC, IVETH L 493.90 ASTHMA UNSPECIFIED 09/07/2014 MADL HEAVY TRUCK MECHANIC, IVETH L 381.01 ACUTE SEROUS OTITIS MEDIA 09/07/2014 MADL HEAVY TRUCK MECHANIC, IVETH L 477.9 ALLERGIC RHINITIS CAUSE UNSPECIFIED 09/07/2014 MADL HEAVY TRUCK MECHANIC, IVETH L 493.90 ASTHMA UNSPECIFIED 09/07/2014 MADL HEAVY TRUCK MECHANIC, IVETH L 381.01 ACUTE SEROUS OTITIS MEDIA 09/07/2014 MADL HEAVY TRUCK MECHANIC, IVETH L 477.9 ALLERGIC RHINITIS CAUSE UNSPECIFIED 09/07/2014 MADL HEAVY TRUCK MECHANIC, IVETH L 493.90 ASTHMA UNSPECIFIED 10/20/2014 MADL HEAVY TRUCK MECHANIC, IVETH L 780.60 FEVER UNSPECIFIED 10/20/2014 MADL HEAVY TRUCK MECHANIC, IVETH L 780.60 FEVER UNSPECIFIED 10/22/2014 MADL HEAVY TRUCK MECHANIC, IVETH L 465.9 UPPER RESPIRATORY INFECTION 04/09/2015 [...] N83.20 UNSPECIFIED OVARIAN CYSTS 02/22/2016 BUNN DO, KAYOED C Ot R10.11 RIGHT UPPER QUADRANT PAIN 02/23/2016 ABYB ROMO DO Ot K12.1 OTHER FORMS OF [...] AUSTIN Joel Ot Y92.[address] IN [facility] NON-INSTITUT (PRIVATE 05/21/2016 BUNN DO, KAYODE C Ot N83.20 UNSPECIFIED OVARIAN CYSTS 05/21/2016 SEPIDEH CARMICHAEL KAYODE C Ot R10.11 RIGHT UPPER QUADRANT PAIN 07/17/2016 SEPDIEH CARMICHAEL KAYODE C Ot N83.20 UNSPECIFIED OVARIAN [...] OF VULVA AND VAGINA 07/26/2016 LEO MOSER HEAVY TRUCK MECHANIC Ot R21 RASH AND OTHER NONSPECIFIC SKIN [...] R11.2 NAUSEA WITH VOMITING, UNSPECIFIED 10/19/2016 ALISA NEWTONBLEINDA Bryan Ot N39.0 URINARY TRACT INFECTION, SITE [...] LOWER ABDOMINAL PAIN, UNSPECIFIED 01/02/2017 LEO MOSER HEAVY TRUCK MECHANIC Ot R30.0 DYSURIA 01/02/2017 BUNN DO, KAYODE [...] R10.9 UNSPECIFIED ABDOMINAL PAIN 07/04/2017 NAKUL ZEPEDA SHALE MINER BLASTING Ot J45.909 UNSPECIFIED ASTHMA, UNCOMPLICATED 07/04/2017 KATELYN, NAKUL SHALE [employer]ER BLASTING Ot N39.0 URINARY TRACT INFECTION, SITE NOT SPECIF 07/10/2017 KATELYN NAKUL SHALE [employer]ER BLASTING Ot J45.909 UNSPECIFIED ASTHMA, UNCOMPLICATED 07/10/2017 KATELYN, NAKUL SHALE MINER BLASTING Ot N39.0 URINARY TRACT INFECTION, SITE NOT [...] Ot Z88.0 ALLERGY STATUS TO PENICILLIN 12/15/2017 BELINDA GRAJEDA Ot Z88.2 ALLERGY STATUS TO SULFONAMIDES STATUS 12/15/2017 BELINDA GRAJEDA Ot Z96.22 MYRINGOTOMY TUBE(S) STATUS 12/17/2017 BELINDA GRAJEDA Ot J45.909 UNSPECIFIED ASTHMA, UNCOMPLICATED 12/17/2017 BELINDA GRAJEDA Ot N76.0 ACUTE VAGINITIS 12/17/2017 BELINDA GRAJEDA Ot R10.30 LOWER ABDOMINAL PAIN, UNSPECIFIED 12/17/2017 BELINDA GRAJEDA Ot Z87.891 PERSONAL HISTORY OF NICOTINE DEPENDENCE 12/17/2017 BELINDA GRAJEDA Ot Z88.0 ALLERGY STATUS TO PENICILLIN 12/17/2017 BELINDA GRAJEDA Ot Z88.2 ALLERGY STATUS TO SULFONAMIDES STATUS 12/17/2017 BELINDA GRAJEDA Ot Z96.22 MYRINGOTOMY TUBE(S) STATUS 06/08/2018 BUNN DO, KAYODE C Ot N83.20 UNSPECIFIED OVARIAN CYSTS 06/08/2018 BUNN DO, KAYODE C Ot R10.11 RIGHT UPPER QUADRANT PAIN 06/09/2018 BUNN DO, KAYODE C Ot N83.20 UNSPECIFIED OVARIAN CYSTS 06/09/2018 BUNN DO, KAYODE C Ot R10.11 RIGHT UPPER QUADRANT PAIN 06/12/2018 LEO MOSER APRN Ot J45.909 UNSPECIFIED ASTHMA, UNCOMPLICATED 06/12/2018 LEO MOSER HEAVY TRUCK MECHANIC Ot K59.00 CONSTIPATION, UNSPECIFIED 06/12/2018 LEO MOSER APRN Ot R10.11 RIGHT UPPER QUADRANT PAIN 06/12/2018 LEO MOSER APRN Ot Z88.0 ALLERGY STATUS TO PENICILLIN 06/12/2018 LEO MOSER APRN Ot Z88.2 ALLERGY STATUS TO SULFONAMIDES STATUS Procedures Code Description [place] [id number] STREP A (IN-HOUSE) 08/19/2014 73751 THERAPUTIC INJ SQ/IM 10/20/2014 J3420 B12 VITAMIN [...] CULTURE RESULTS <10,000 Gram Positive Mixed Maryjane [id number] Skin Contaminant [id number] Further Workup done CULTURE SOURCE URINE CULTURE [...] NRG STATEMENT OF ADEQUACY: NRG INTERPRETATION/RESULT: NRG FRONT END APPLICATION DEVELOPER: NRG INFECTION: NRG COMMENT NRG Complete urinalysis with reflex to culture - 06/09/18 21:15 Urine color determination YELLOW NRG Urine [...] urine sediment by light microscopy LARGE NRG Squamous epithelial cells detection in urine sediment by light microscopy 2-5 NRG Crystals detection in urine sediment by light microscopy NONE NRG Casts detection in urine sediment by light microscopy NONE NRG Mucus detection in urine sediment by light microscopy MODERATE NRG Complete urinalysis with reflex to culture YES NRG Bacterial urine culture - 06/09/18 21:15 Bacterial urine culture NG NRG Complete blood count (CBC) with automated white blood cell (WBC) differential - 06/09/18 21:20 Blood leukocytes automated count (number/volume) 10.1 10*3/uL 4.3-11.0 Blood erythrocytes automated count (number/volume) 4.33 10*6/uL 4.35-5.85 Venous blood hemoglobin measurement (mass/volume) 13.6 g/dL 11.5-16.0 Blood hematocrit (volume fraction) 39 % 35-52 Automated erythrocyte mean corpuscular volume 89 [foz_us] 80-99 Automated erythrocyte mean corpuscular hemoglobin (mass per erythrocyte) 31 pg 25-34 Automated erythrocyte mean corpuscular hemoglobin concentration measurement ( mass/volume) 35 g/dL 32-36 Automated erythrocyte distribution width ratio 12.6 % 10.0-14.5 Automated blood platelet count (count/volume) 204 10*3/uL 130-400 Automated blood platelet mean volume measurement 9.7 [foz_us] 7.4-10.4 Automated blood neutrophils/100 leukocytes 58 % 42-75 Automated blood lymphocytes/100 leukocytes 33 % 12-44 Blood monocytes/100 leukocytes 8 % 0-12 Automated blood eosinophils/100 leukocytes 1 % 0-10 Automated blood basophils/100 leukocytes 0 % 0-10 Blood neutrophils automated count (number/volume) 5.8 10*3 1.8-7.8 Blood lymphocytes automated count (number/volume) 3.3 10*3 1.0-4.0 Blood monocytes automated count (number/volume) 0.8 10*3 0.0-1.0 Automated eosinophil count 0.1 10*3/uL 0.0-0.3 Automated blood basophil count (count/volume) 0.0 10*3/uL 0.0-0.1 Comprehensive metabolic panel - 06/09/18 21:20 Serum or plasma sodium measurement (moles/volume) 138 mmol/L 135-145 Serum or plasma potassium measurement (moles/volume) 4.1 mmol/L 3.6-5.0 Serum or plasma chloride measurement (moles/volume) 104 mmol/L 98-107 Carbon dioxide 22 mmol/L 21-32 Serum or plasma anion gap determination (moles/volume) 12 mmol/L 5-14 Serum or plasma urea nitrogen measurement (mass/volume) 12 mg/dL 7-18 Serum or plasma creatinine measurement (mass/volume) 0.69 mg/dL 0.60-1.30 Serum or plasma urea nitrogen/creatinine mass ratio 17 NRG Serum or plasma creatinine measurement with calculation of estimated glomerular filtration rate > NRG Serum or plasma glucose measurement (mass/volume) 96 mg/dL 70-105 Serum or plasma calcium measurement (mass/volume) 9.3 mg/dL 8.5-10.1 Serum or plasma total bilirubin measurement (mass/volume) 0.3 mg/dL 0.1-1.0 Serum or plasma alkaline phosphatase measurement (enzymatic activity/volume) 84 U/L 40-136 Serum or plasma aspartate aminotransferase measurement (enzymatic activity/ volume) 25 U/L 5-34 Serum or plasma alanine aminotransferase measurement (enzymatic activity/volume ) 15 U/L 0-55 Serum or plasma protein measurement (mass/volume) 7.6 g/dL 6.4-8.2 Serum or plasma albumin measurement (mass/volume) 4.6 g/dL 3.2-4.5 Lipase - 06/09/18 21:20 Lipase 70 U/L 8-78 Serum or plasma choriogonadotropin ( test) detection - 06/09/18 21:20 Serum or plasma choriogonadotropin ( test) detection NEGATIVE NEGATIVE Encounters ACCT No. Visit Date/Time Discharge Status Pt. Type Provider Facility Loc./Unit Complaint [id number] 10/22/2014 13:30:00 10/22/2014 23:59:59 CLS Outpatient SOLITARIO BENDER APRNNYRuben Adams [id number] 10/20/2014 09:21:00 10/20/2014 23:59:59 CLS Outpatient SOLITARIO BENDER APRNNYRuben Adams [id number] 09/07/2014 15:17:00 09/07/2014 23:59:59 CLS Outpatient SOLITARIO BENDER APRNNYRuben Adams [id number] 08/19/2014 13:29:00 08/19/2014 23:59:59 CLS Outpatient JOSE RAMON PALOMO APRN [id number] 07/01/2017 12:06:00 Document Registration [id number] 08/26/2016 07:05:00 Document Registration [id number] 06/14/2015 03:00:16 ACT Document Registration [id number] 06/09/2018 21:08:00 06/09/2018 22:32:00 DIS Outpatient LEO MOSER APRN [facility] ER ABD PAIN [id number] 12/15/2017 19:20:00 12/15/2017 21:49:00 DIS Emergency BELINDA GRAJEDA [facility] ER ABDOMEN PAIN [id number] 07/26/2017 18:15:00 07/26/2017 19:55:00 DIS Emergency LEO MOSER APRN [facility] ER SINUS PROBLEMS;COUGH; POSSIBLE UTI [id number] 07/04/2017 19:52:00 07/04/2017 23:20:00 DIS Emergency KATELYN NAKUL DE LA OP [facility] ER RT SIDED ABD PAIN [id number] 05/14/2017 12:55:00 05/14/2017 13:36:00 DIS Emergency LEO MOSER APRN [facility] ER THINKS SHE HAS A UTI [id number] 12/31/2016 21:07:00 12/31/2016 21:43:00 DIS Emergency LEO MOSER APRN [facility] ER ABD PAIN, BLOOD IN URINE, FREQUENT URINATION [id number] 10/14/2016 17:39:00 10/14/2016 21:00:00 DIS Emergency BELINDA GRAJEDA [facility] ER ABD SWELLING/PAIN/ NAUSEA/UTI [id number] 09/25/2016 01:44:00 09/25/2016 02:16:00 DIS Emergency LAURIE DIAZ MD [facility] ER LEGS NUMB, BODY SHAKES , CHEST PAIN [id number] 08/30/2016 05:32:00 08/30/2016 09:11:00 DIS Emergency LAURIE DIAZ MD [facility] ER L SIDE PAIN [id number] 07/25/2016 10:54:00 07/25/2016 11:12:00 DIS Emergency LEO MOSER APRN [facility] ER POSS MED REACTION FACIAL SWELLING/RASH [id number] 07/21/2016 12:33:00 07/21/2016 16:48:00 DIS Emergency ABBY ROMO DO [facility] ER ABD PAIN [id number] 07/17/2016 13:42:00 07/17/2016 23:59:59 CLS Emergency LEO MOSER APRN [facility] ER SORE THROAT SWOLLEN GLANDS BLISTERS IN MOUTH [id number] 05/21/2016 01:58:00 05/21/2016 02:58:00 DIS Emergency AUSTIN BAÑUELOS MD [facility] ER R LEG BUG BITE [id number] 04/28/2016 19:55:00 04/28/2016 20:28:00 DIS Emergency LEO MOSER APRN [facility] ER CONGESTION,FEVER,POSSIBLE [id number] 03/30/2016 19:48:00 03/30/2016 20:50:00 DIS Emergency BELINDA GRAJEDA [facility] ER RASH ON LEFT ARM [id number] 02/22/2016 22:56:00 02/22/2016 23:42:00 DIS Emergency ABBY ROMO DO [facility] ER TONGUE SWELLING AND BLISTERS [id number] 01/10/2016 10:57:00 01/10/2016 23:59:59 CLS Outpatient KAYODE BUNN DO [facility] RAD CHRONIC RUQ PAIN,OVARIAN CYST [id number] 12/14/2015 19:55:00 12/14/2015 21:25:00 DIS Emergency LAURIE DIAZ MD [facility] ER CP,SOA [id number] 06/14/2015 02:40:00 06/14/2015 03:11:00 DIS Emergency ROSANNE ROMERO MD [facility] ER CONGESTION [id number] 05/12/2015 21:12:00 05/12/2015 23:08:00 DIS Emergency ABBY ROMO DO [facility] ER POSSIBLE ALLERGIC REACTION TO MEDS [id number] 04/09/2015 05:54:00 04/09/2015 08:30:00 DIS Emergency DARION BRIGGS MD [facility] ER POSS UTI,ABD PAIN [id number] 08/23/2014 15:42:00 08/23/2014 17:41:00 DIS Emergency LEO MOSER APRN [facility] ER FEVER ABD PAIN [id number] 07/07/2014 18:58:00 07/07/2014 23:59:59 CLS Outpatient YAMIL WELDNO SHALE MINER BLASTING [facility] QUICK UA CULTURE [id number] 03/23/2014 20:51:00 03/23/2014 21:04:00 DIS Emergency LEO MOSER HEAVY TRUCK MECHANIC [facility] ER EAR PAIN [id number] 09/01/2013 20:30:00 09/01/2013 21:01:00 DIS Emergency LEO MOSER HEAVY TRUCK MECHANIC [facility] ER MULTIPLE COMPLAINTS [id number] 07/09/2013 17:22:00 07/09/2013 20:11:00 DIS Emergency BELINDA GRAJEDA [facility] ER FALL WITH HEAD INJ [id number] 03/14/2013 15:39:00 03/14/2013 23:59:59 CLS Outpatient KATINA ALLAN [employer] BLASTING [facility] QUICK UTI [id number] 03/11/2013 13:22:00 03/11/2013 23:59:59 CLS Outpatient MAJOR, KENNEDY [employer] BLASTING [facility] QUICK EAR PAIN SINUS [id number] 09/26/2017 07:20:00 Document Registration [id number] 09/26/2017 07:20:00 Document Registration [id number] 09/26/2017 07:20:00 Document Registration [id number] 06/23/2015 13:15:00 Document Registration [id number] 07/17/2012 12:53:00 Document Registration [id number] 04/27/2012 21:37:00 Document Registration [id number] 06/05/2011 18:36:00 Document Registration [id number] 03/18/2011 14:53:00 Document Registration [id number] 02/24/2011 16:50:00 Document Registration [id number] 12/24/2010 15:31:00 Document Registration [id number] 10/27/2010 09:46:00 Document Registration [id number] 07/24/2016 05:05:00 Document Registration [id number] 03/02/2017 03:07:00 Document Registration [id number] 05/15/2018 19:10:00 05/15/2018 23:59:59 CLS Outpatient MARILEE MEJIA [facility] [id number] 04/04/2018 10:40:00 Document Registration [id number] 02/06/2018 15:00:00 Document Registration [id number] 10/10/2017 18:55:00 Document Registration [id number] 10/02/2017 10:00:00 Document Registration [id number] 08/28/2017 16:00:00 Document Registration [id number] 06/28/2017 14:10:00 Document Registration [id number] 10/14/2016 16:13:00 10/14/2016 23:59:00 DIS Outpatient Abner Middleton [id number] 10/14/2016 15:58:00 10/14/2016 23:59:00 DIS Outpatient Abner Middleton
== END 2018-08-05 18:04 | disposition home or self-care (01) ==
LOC: EDUNIT# 16:55 → ER 16:56
DX: N39.0 Urinary tract infection, site not specified (principal); J45.909 Unspecified asthma, uncomplicated; Z88.0 Allergy status to penicillin; Z88.2 Allergy status to sulfonamides; Z87.891 Personal history of nicotine dependence
CPT/HCPCS: 81000; 84703; 87088; 99282

== ENCOUNTER 2018-08-31 17:19 | Emergency (ER) | payer SELFPAY ==
[~2018-08-31] VITALS: Ht 149.9 cm; Wt 36.3 kg
[~2018-08-31 17:19] MED LIST changes: +CEFU500T63 PO
--- OUTSIDE RECORDS SUMMARY | 2018-08-31 17:24 | XMS REPORT ---
Author Author MARILEE MEJIA [facility] Address [address] [place] [address] Care Team Providers Care Superintendent Warehouse Name Role Phone MARILEE MEJIA Unavailable PROBLEMS Type Condition ICD9-CM Code EOV78-JY Code Onset Dates Condition Status SNOMED Code Problem Ovarian cyst N83.20 Active 62315066 Problem Moderate persistent asthma without complication J45.40 Active 251195473 Problem Gastroesophageal reflux disease, esophagitis presence not specified K21.9 Active 905621983 Problem GERD (gastroesophageal reflux disease) K21.9 Active 666190501 Problem Seasonal allergic rhinitis, unspecified allergic rhinitis trigger J30.2 Active 066430535 Problem Chronic maxillary sinusitis J32.0 Active 28043080 Problem Slow transit constipation K59.01 Active 80040389 ALLERGIES Substance Reaction Event Type Date Status SulfADIAZINE Unknown Drug Allergy Jul, Active Penicillin V Potassium Unknown Drug Allergy Jul, Active ENCOUNTERS Encounter Location Date Diagnosis [place] [id number] [place] [id number] [place] [address]692- 7089 Jul, Non-intractable vomiting with nausea, unspecified vomiting type R11.2 and Viral upper respiratory tract infection J06.9 [facility] [id number] [place] [address] 54314- 1257 Jun, [facility] [id number] [place] [address] 53340- 2249 Jun, Acute recurrent maxillary sinusitis J01.01 ; Seasonal allergic rhinitis, unspecified allergic rhinitis trigger J30.2 ; Gastroesophageal reflux disease, esophagitis presence not specified K21.9 ; Chronic constipation K59.09 and Moderate persistent asthma without complication J45.40 [facility] [address] [place] [address] 92678- 4011 Jun, Viral upper respiratory tract infection J06.9 [facility] [id number] [place] [address] 47730 -6037 05 May, 2018 Dysuria R30.0 and Cyst of right ovary N83.201 [facility] [id number] [place] [address] 44628- 0323 Apr, [facility] [address] 61478- 6868 Apr, [facility] [address] 51604- 5552 Mar, [facility] [address] 23800- 1404 Mar, [facility] [address] 96217- 6411 Mar, Sore throat J02.9 ; Dysuria R30.0 ; Vaginal discharge N89.8 ; Screening for HPV (human papillomavirus) Z11.51 ; Gastroesophageal reflux disease, esophagitis presence not specified K21.9 and Chronic constipation K59.09 [facility] [id number] [place] [address] 59036- 3805 Feb, [facility] [id number] [place] [address] 80596- 5403 January, Dysuria R30.0 and Pyelonephritis N12 [facility] [id number] [place] [address] 46211- 9865 January, [facility] [id number] [place] [address] 19705- 5042 January, Acute recurrent maxillary sinusitis J01.01 [facility] [address] 84088- 5680 Dec, [facility] [id number] [place] [address] 58828- 8579 Dec, Lower abdominal pain R10.30 ; Polyuria R35.8 and Earache symptoms in both ears H92.03 [facility] [address] [place] [address] 32009 -9935 12 Dec, 2017 Gastroenteritis K52.9 [facility] [address] 265[address] -[address] Dec, Dysuria R30.0 ; Yeast infection of the vagina B37.3 and Shaking R25.[address] 6[address]77- 8628 Nov, Exacerbation of asthma, unspecified asthma severity, unspecified whether persistent J45.901 [facility] [address] 35523 -3773 Nov, Acute frontal sinusitis, recurrence not specified J01.10 ; Post-nasal drainage R09.82 and Chronic asthma without complication, unspecified asthma severity, unspecified whether persistent J45.909 [facility] [address] [address] -4975 Sep, Acute cystitis with hematuria N30.01 and Dysuria R30.0 [facility] [address] [id number] Sep, [address] 23650- 1067 Sep, Dysuria R30.0 [facility] [address] [id number] Sep, Dental examination Z01.[address] 88967- 2732 08 Sep, 2017 Encounter for dental examination and cleaning with abnormal findings Z01.21 [facility] [address] [place] [address] 34942 -2737 Sep, Tooth pain K08.[address] 02808- 5850 Sep, Nevoid hyperpigmentation L81.9 [place] [id number] [place] [address] 19794- 8359 Aug, Nevoid hyperpigmentation L81.[address] 28617- 6404 Aug, Sore throat J02.9 ; Bronchitis J40 and Irritated nevus D22.[address] 58191- 9568 Aug, Dysuria R30.0 ; Acute cystitis with hematuria N30.01 ; Vaginal yeast infection B37.3 and Slow transit constipation K59.01 [facility] [address] 40869 -5429 Jul, [facility] [address] [id number] Jun, Dental examination Z01.20 [facility] [address] 17360 -5405 Jun, Fluid level behind tympanic membrane of both ears H65.93 [facility] [address] 08555 -0615 Jun, Potential exposure to STD Z20.2 ; Dysuria R30.0 ; Vaginal discharge N89.8 and Candidiasis of female genitalia B37.3 [facility] [address] [id number] Jun, Dental examination Z01.20 [facility] [address] [id number] May, Dental examination Z01.20 [facility] [address] [id number] May, Dental examination Z01.20 [facility] [address] [id number] May, Dental examination Z01.20 [facility] [address] 65349- 1568 Apr, Dysfunction of both eustachian tubes H69.83 [facility] [address] [address] Apr, GERD (gastroesophageal reflux disease) K21.9 and Sore throat J02.9 [facility] [address] [id number] Apr, Dental examination Z01.20 [facility] [address] 01223- 5602 Apr, Asthma exacerbation J45.901 [facility] [address] [id number] Mar, Dental examination Z01.20 [facility] [address] [id number] Feb, Dental examination Z01.20 [facility] [address] 82343 -4410 Feb, Middle ear effusion, bilateral H65.93 [place] [address] 27606- 9227 Feb, Dysuria R30.0 and Diverticulitis of large intestine without perforation or abscess with bleeding K57.33 [place] [address] 57684- 7553 January, Asthma with acute exacerbation in adult J45.901 [place] [address] 16442- 1839 January, Dysuria R30.0 ; Vaginal discharge N89.8 and Acute non- recurrent maxillary sinusitis J01.00 [place] [address] 73266- 6061 Dec, [place] [address] 59954- 9011 Dec, Sore throat J02.9 ; Acute mucoid otitis media of left ear H65.112 and Acute non-recurrent maxillary sinusitis J01.00 [facility] [id number] [place] [address] 91086- 2930 Dec, Bronchitis J40 [facility] [place] [address] 80962 -4126 Dec, Shortness of breath R06.02 and Mild intermittent asthma without complication J45.20 [place] [address] 83954- 2632 Nov, Asthma exacerbation J45.901 and Bronchitis J40 [place] [address] 53933- 3853 Oct, Acute mucoid otitis media of both ears H65.113 and Acute non -recurrent maxillary sinusitis J01.00 [facility] [address] [id number] Oct, Dental examination Z01.20 [place] [address] 40021- 4541 Sep, Exposure to influenza Z20.828 and Upper respiratory tract infection, unspecified type J06.9 [facility] [place] [id number] [place] [address] 03846 -7427 Aug, Acute exacerbation of asthma with allergic rhinitis J45.901 [facility] [address] 73899 -0673 Aug, Burning with urination R30.0 and Hematuria R31.[address] 74255- 0365 08 Aug, 2016 Seasonal allergic rhinitis, unspecified allergic rhinitis trigger J30.2 and Dermatitis L30.[address] 26994- 5821 17 Jul, 2016 Follow up Z09 [address] 52566- 0984 15 Jul, 2016 [place] [id number] [place] [address] 58605- 4224 10 Jul, 2016 Dysuria R30.0 ; Acute vaginitis N76.0 and PID (acute pelvic inflammatory disease) N73.0 [place] [id number] [place] [address] 47893- 6377 02 Jul, 2016 Sore throat J02.9 [facility] [address] 69387 -5116 16 Jun, 2016 Acute otitis externa of both ears, unspecified type H60.503 [facility] [address] 36647 -6188 May, Sore throat J02.9 and Pharyngitis, unspecified etiology J02.9 [facility] [address] 41379 -7597 Apr, Dysuria R30.0 [facility] [place] [address] 43067 -7136 18 Mar, 2016 Viral infection B34.9 [facility] [address] 36267 -0324 07 Mar, 2016 Dermatitis L30.9 [place] [address] 14577- 9121 27 Feb, 2016 Annual physical exam Z00.00 and Screen for STD (sexually transmitted disease) Z11.3 [facility] [place] [id number] [place] [address] 66025 -3547 13 Feb, 2016 Pain with urination R30.[address] 87457- 2516 03 Feb, 2016 Other seasonal allergic rhinitis J30.2 [place] [address] 70048- 5850 29 Nov, 2015 Cough R05 and Viral syndrome B34.9 [place] [address] 23899- 8072 22 Nov, 2015 Oral contraceptive pill surveillance Z30.41 and Left ovarian cyst N83.[address] 77566- 0606 16 Nov, 2015 Ovarian cyst N83.20 and Otitis media of both ears H66.[address] 89681- 1732 07 Nov, 2015 Sore throat J02.9 and Streptococcal pharyngitis J02.[address] 01904- 2954 17 Oct, 2015 Ovarian cyst N83.20 ; Hematuria R31.9 ; Urinary crystals R82.99 ; Left sided abdominal pain R10.9 and Allergic rhinitis J30.[address] 86607- 0805 14 Oct, [address] 63360- 4511 11 Oct, 2015 Left lower quadrant pain R10.32 ; Dysuria R30.0 ; History of constipation Z87.19 ; Routine screening for STI (sexually transmitted infection) Z11.3 ; CVA tenderness M54.9 ; Lower abdominal tenderness R10.819 ; Vaginal itching L29.8 and Family history of endometriosis Z84.[address] 25116- 4681 01 Oct, 2015 Asthma attack 493.92 ; UTI symptoms R39.9 and Sinusitis 473.9 [facility] [address] [id number] 09 Aug, 2015 Dental examination Z01.[address] 20417- 7716 Jul, Scabies B86 [address] 78921- 3081 Jun, Otitis externa of both ears H60.93 [facility] [address] [place] [address] 39720- 7736 May, Asthma attack 493.92 [facility] [address] [id number] [place] [address] 796555- 6037 Apr, Otitis externa of both ears 380.10 [facility] [id number] [place] [address] 65987- 7350 Apr, Insect bite 919.4 [facility] [id number] [place] [address] 38401- 6618 Apr, Infective otitis externa 380.10 [facility] [id number] [place] [address] 82946- 9898 Mar, Acute sinusitis 461.9 [facility] [id number] [place] [address] 31609- 7055 Mar, Acute pharyngitis 462 [facility] [id number] [place] [address] 05942- 2106 Feb, Otitis media of both ears 382.9 [place] [id number] [place] [address] 61363- 2920 Feb, Dysuria 788.1 and Urinary tract infection 599.0 [place] [id number] [place] [address] 15913- 3813 Feb, Dysuria 788.1 [facility] [id number] [place] [address] 92581- 4467 January, Sinusitis 473.9 [facility] [id number] [place] [address] 69111- 2578 Dec, [facility] [id number] [place] [address] 68333- 4589 Dec, [facility] [address] [place] [address] 95008- 1540 Nov, [facility] [address] [address]- 0921 Nov, [facility] [address] [place] [address]- 6356 Oct, [facility] [address] [address]703 Oct, 2014 [facility] [id number] [place] [address] 117184- 8263 Oct, 2014 [facility] [address] [address]- 4651 Oct, 2014 [facility] [address] [place] [address] 66684- 5029 Oct, 2014 [facility] [address] [place] [address] 17716- 0739 Oct, [facility] [id number] [place] [address] 54615- 0095 Aug, [facility] [address] [place] [address]- 1258 Aug, [facility] [address] [address]- 2134 Aug, [facility] [address] [place] [address]- 1620 Aug, IMMUNIZATIONS No Known Immunizations SOCIAL HISTORY Never Assessed REASON FOR VISIT pt c/o vomiting, upset stomach, sinus congestion and fever on and off. - WINDY Parham PLAN OF CARE Activity Details Follow Up if not improving with PCP or reg follow up Reason: VITAL SIGNS Height 59 in 2018-08-05 Weight 86.9 lbs 2018-08-05 Temperature 97.3 degrees Fahrenheit 2018-08-05 Heart Rate 98 bpm 2018-08-05 Respiratory Rate 18 2018-08-05 BMI 17.55 kg/m2 2018-08-05 Blood pressure systolic 98 mmHg 2018-08-05 Blood pressure diastolic 56 mmHg 2018-08-05 MEDICATIONS Medication Instructions Dosage Frequency Start Date End Date Duration Status Symbicort 160-4.5 MCG/ACT Inhalation Twice a day 2 puffs 12h 13 Nov, 2017 Active Ranitidine HCl 150 MG Orally twice a day 1 tablet at bedtime 12h Mar, Active Polyethylene Glycol 3350 17 gm/dose Orally Once a day 17gram 24h Mar, Active ProAir HFA 108 (90 Base) mcg/act Inhalation every 4 hrs 2 puffs as needed 4h Aug, 30 days Active Montelukast Sodium 10 mg TAKE ONE TABLET BY MOUTH IN THE EVENING 30 Active Ondansetron HCl 4 MG Orally TID PRN 2 tablets Jul, 5 days Active Zyrtec Allergy 10 mg oral daily 1 tablet 24h 30 days Active Flonase 50 mcg/act intranasally daily 1 spary each nostril 24h Aug, 30 days Active RESULTS No Results PROCEDURES No Known procedures INSTRUCTIONS MEDICATIONS ADMINISTERED No Known Medications MEDICAL (GENERAL) HISTORY Type Description Date Medical History asthma Medical History Seasonal allergies Surgical History myringotomy with ventilating tube x 2 Surgical History [place] teeth removal 09/01/2015
--- OUTSIDE RECORDS SUMMARY | 2018-08-31 17:40 | XMS REPORT | Continuity of Care Document ---
Author Author [facility] Address Unknown Phone Unavailable Allergies Active Description Code Type Severity Reaction Onset Reported/Identified Relationship to Patient Clinical Status Yes Penicillins Drug Allergy N/A N/A 08/19/2014 Yes Penicillins [id number] Drug Allergy Unknown N/A 05/12/2015 Yes SULFA [...] LEVEL TO OTH NEC 09/01/2013 LEO MOSER RESTAURANT RECRUITER Ot 462 ACUTE PHARYNGITIS 03/23/2014 LEO MOSER APRN Ot 465.9 ACUTE URI NOS 08/19/2014 PALOMO RESTAURANT RECRUITER, JOSE RAMON R 462 ACUTE PHARYNGITIS 08/19/2014 MADL RESTAURANT RECRUITER, IVETH L 462 ACUTE PHARYNGITIS 08/19/2014 MADL RESTAURANT RECRUITER, IVETH L 462 ACUTE PHARYNGITIS 08/19/2014 MADL RESTAURANT RECRUITER, IVETH L 462 ACUTE PHARYNGITIS 08/23/2014 LEO MOSER APRN Ot 780.60 FEVER, UNSPECIFIED 08/23/2014 LEO MOSER RESTAURANT RECRUITER Ot 789.00 ABDOMINAL PAIN, UNSPECIFIED SITE 09/07/2014 MADL RESTAURANT RECRUITER, IVETH L 381.01 ACUTE SEROUS OTITIS MEDIA 09/07/2014 MADL RESTAURANT RECRUITER, IVETH L 477.9 ALLERGIC RHINITIS CAUSE UNSPECIFIED 09/07/2014 MADL RESTAURANT RECRUITER, IVETH L 493.90 ASTHMA UNSPECIFIED 09/07/2014 MADL RESTAURANT RECRUITER, IVETH L 381.01 ACUTE SEROUS OTITIS MEDIA 09/07/2014 MADL RESTAURANT RECRUITER, IVETH L 477.9 ALLERGIC RHINITIS CAUSE UNSPECIFIED 09/07/2014 MADL RESTAURANT RECRUITER, IVETH L 493.90 ASTHMA UNSPECIFIED 09/07/2014 MADL RESTAURANT RECRUITER, IVETH L 381.01 ACUTE SEROUS OTITIS MEDIA 09/07/2014 MADL RESTAURANT RECRUITER, IVETH L 477.9 ALLERGIC RHINITIS CAUSE UNSPECIFIED 09/07/2014 MADL RESTAURANT RECRUITER, IVETH L 493.90 ASTHMA UNSPECIFIED 10/20/2014 MADL RESTAURANT RECRUITER, IVETH L 780.60 FEVER UNSPECIFIED 10/20/2014 MADL RESTAURANT RECRUITER, IVETH L 780.60 FEVER UNSPECIFIED 10/22/2014 MADL RESTAURANT RECRUITER, IVETH L 465.9 UPPER RESPIRATORY INFECTION 04/09/2015 [...] AUSTIN Joel Ot Y92.[address] IN [facility] NON-INSTITUT (PRIVATE 05/21/2016 BUNN DO, [...] OF VULVA AND VAGINA 07/26/2016 LEO MOSER RESTAURANT RECRUITER Ot R21 RASH AND OTHER NONSPECIFIC SKIN [...] R10.32 LEFT LOWER QUADRANT PAIN 08/31/2016 LAURIE IDAZ MD Ot N76.0 ACUTE VAGINITIS 08/31/2016 LAURIE [...] LOWER ABDOMINAL PAIN, UNSPECIFIED 01/02/2017 LEO MOSER RESTAURANT RECRUITER Ot R30.0 DYSURIA 01/02/2017 BUNN DO, KAYODE [...] R10.9 UNSPECIFIED ABDOMINAL PAIN 07/04/2017 NAKUL ZEPEDA TELEGRAPH REPEATER MECHANIC Ot J45.909 UNSPECIFIED ASTHMA, UNCOMPLICATED 07/04/2017 KATELYN, NAKUL TELEGRAPH REPEATER MECHANIC Ot N39.0 URINARY TRACT INFECTION, SITE NOT SPECIF 07/10/2017 KATELYN NAKUL TELEGRAPH REPEATER MECHANIC Ot J45.909 UNSPECIFIED ASTHMA, UNCOMPLICATED 07/10/2017 KATELYN, NAKUL TELEGRAPH REPEATER MECHANIC Ot N39.0 URINARY TRACT INFECTION, SITE NOT [...] Ot R10.30 LOWER ABDOMINAL PAIN, UNSPECIFIED 12/15/2017 ALISA NEWTON BELINDA L Ot Z87.891 PERSONAL HISTORY OF NICOTINE DEPENDENCE 12/15/2017 BELINDA GRAJEDA Ot Z88.0 ALLERGY STATUS TO PENICILLIN 12/15/2017 BELINDA GRAJEDA L Ot Z88.2 ALLERGY STATUS TO SULFONAMIDES STATUS 12/15/2017 BELINDA GRAJEDA Ot Z96.22 MYRINGOTOMY TUBE(S) STATUS 12/17/2017 BELINDA GRAJEDA Ot J45.909 UNSPECIFIED ASTHMA, UNCOMPLICATED 12/17/2017 BELINDA GRAJEDA L Ot N76.0 ACUTE VAGINITIS 12/17/2017 BELINDA GRAJEDA L Ot R10.30 LOWER ABDOMINAL PAIN, UNSPECIFIED 12/17/2017 BELINDA GRAJEDA L Ot Z87.891 PERSONAL HISTORY OF NICOTINE DEPENDENCE 12/17/2017 BELINDA GRAJEDA Ot Z88.0 ALLERGY STATUS TO PENICILLIN 12/17/2017 BELINDA GRAJEDA L Ot Z88.2 ALLERGY STATUS TO SULFONAMIDES STATUS 12/17/2017 BELINDA GRAJEDA L Ot Z96.22 MYRINGOTOMY TUBE(S) STATUS 06/08/2018 BUNN DO, KAYODE C Ot N83.20 UNSPECIFIED OVARIAN CYSTS 06/08/2018 BUNN DO, KAYODE C Ot R10.11 RIGHT UPPER QUADRANT PAIN 06/09/2018 BUNN DO, KAYODE C Ot N83.20 UNSPECIFIED OVARIAN CYSTS 06/09/2018 BUNN DO, KAYODE C Ot R10.11 RIGHT UPPER QUADRANT PAIN 06/12/2018 LEO MOSER APRN Ot J45.909 UNSPECIFIED ASTHMA, UNCOMPLICATED 06/12/2018 LEO MOSER RESTAURANT RECRUITER Ot K59.00 CONSTIPATION, UNSPECIFIED 06/12/2018 LEO MOSER RESTAURANT RECRUITER Ot R10.11 RIGHT UPPER QUADRANT PAIN 06/12/2018 LEO MOSER APRN Ot Z88.0 ALLERGY STATUS TO PENICILLIN 06/12/2018 LEO MOSER RESTAURANT RECRUITER Ot Z88.2 ALLERGY STATUS TO SULFONAMIDES STATUS 08/07/2018 LEO MOSER APRN Ot J45.909 UNSPECIFIED ASTHMA, UNCOMPLICATED 08/07/2018 LEO MOSER APRN Ot N39.0 URINARY TRACT INFECTION, SITE NOT SPECIF 08/07/2018 LEO MOSER APRN Ot R10.30 LOWER ABDOMINAL PAIN, UNSPECIFIED 08/07/2018 LEO MOSER APRN Ot Z87.891 PERSONAL HISTORY OF NICOTINE DEPENDENCE 08/07/2018 LEO MOSER APRN Ot Z88.0 ALLERGY STATUS TO PENICILLIN 08/07/2018 LEO MOSER APRN Ot Z88.2 ALLERGY STATUS TO SULFONAMIDES STATUS Procedures Code [place] [address] STREP A (IN-HOUSE) 08/19/2014 06649 THERAPUTIC INJ SQ/IM 10/20/2014 J3420 B12 VITAMIN [...] 4.2 g/dL 3.2-4.5 Urine Culture, Routine - 12/15/16 15:03 Urine Culture, Routine Note Urine beta [...] CULTURE RESULTS <10,000 Gram Positive Mixed Maryjane [id number] Skin Contaminant [id number] Further Workup done CULTURE SOURCE URINE CULTURE [...] NRG STATEMENT OF ADEQUACY: NRG INTERPRETATION/RESULT: NRG TRANSPORTATION COORDINATOR: NRG INFECTION: NRG COMMENT NRG Complete urinalysis [...] plasma choriogonadotropin ( test) detection NEGATIVE NEGATIVE Complete urinalysis with reflex to culture - 08/05/18 17:08 Urine color determination YELLOW NRG Urine clarity [...] culture YES NRG Bacterial urine culture - 08/05/18 17:08 Bacterial urine culture SEE REPORT NRG COLONY COUNT . NRG Encounters ACCT No. Visit Date/Time Discharge Status Pt. Type Provider Facility Loc./Unit Complaint [id number] 10/22/2014 13:30:00 10/22/2014 23:59:59 CLS Outpatient IVETH BENDER APRN Bryan [id number] 10/20/2014 09:21:00 10/20/2014 23:59:59 CLS Outpatient ANDRESBryan IVETH RODRIGUEZ Bryan [id number] 09/07/2014 15:17:00 09/07/2014 23:59:59 CLS Outpatient IVETH BENDER APRN Bryan [id number] 08/19/2014 13:29:00 08/19/2014 23:59:59 CLS Outpatient ODILIA PALOMO APRNNOAH Uribe [id number] 07/01/2017 12:06:00 Document Registration [id number] 08/26/2016 07:05:00 Document Registration [id number] 06/14/2015 03:00:16 ACT Document Registration [id number] 08/05/2018 16:56:00 08/05/2018 18:04:00 DIS Outpatient LEO MOSER RESTAURANT RECRUITER [facility] ER UTI/ABD AND BACK PAIN/N/V [id number] 06/09/2018 21:08:00 06/09/2018 22:32:00 DIS Outpatient LEO MOSER RESTAURANT RECRUITER [facility] ER ABD PAIN [id number] 12/15/2017 19:20:00 12/15/2017 21:49:00 DIS Emergency BELINDA GRAJEDA [facility] ER ABDOMEN PAIN [id number] 07/26/2017 18:15:00 07/26/2017 19:55:00 DIS Emergency LEO MOSER APRN [facility] ER SINUS PROBLEMS;COUGH; POSSIBLE UTI [id number] 07/04/2017 19:52:00 07/04/2017 23:20:00 DIS Emergency NAKUL ZEPEDA [facility] ER RT SIDED ABD PAIN [id number] 05/14/2017 12:55:00 05/14/2017 13:36:00 DIS Emergency LEO MOSER APRN [facility] ER THINKS SHE HAS A UTI [id number] 12/31/2016 21:07:00 12/31/2016 21:43:00 DIS Emergency LEO MOSER APRN [facility] ER ABD PAIN, BLOOD IN URINE, FREQUENT URINATION [id number] 10/14/2016 17:39:00 10/14/2016 21:00:00 DIS Emergency BELINDA GRAJEDA [facility] ER ABD SWELLING/PAIN/ NAUSEA/UTI [id number] 09/25/2016 01:44:00 09/25/2016 02:16:00 DIS Emergency LAURIE DIAZ MD [facility] ER LEGS NUMB, BODY SHAKES , CHEST PAIN [id number] 08/30/2016 05:32:00 08/30/2016 09:11:00 DIS Emergency LAURIE DIAZ MD [facility] ER L SIDE PAIN [id number] 07/25/2016 10:54:00 07/25/2016 11:12:00 DIS Emergency LEO MOSER APRN [facility] ER POSS MED REACTION FACIAL SWELLING/RASH [id number] 07/21/2016 12:33:00 07/21/2016 16:48:00 DIS Emergency ABBY ROMO DO [facility] ER ABD PAIN [id number] 07/17/2016 13:42:00 07/17/2016 23:59:59 CLS Emergency LEO MOSER APRN [facility] ER SORE THROAT SWOLLEN GLANDS BLISTERS IN MOUTH [id number] 05/21/2016 01:58:00 05/21/2016 02:58:00 DIS Emergency AUSTIN BAÑUELOS MD [facility] ER R LEG BUG BITE [id number] 04/28/2016 19:55:00 04/28/2016 20:28:00 DIS Emergency LEO MOSER APRN [facility] ER CONGESTION,FEVER,POSSIBLE [id number] 03/30/2016 19:48:00 03/30/2016 20:50:00 DIS Emergency BELINDA GRAJEDA [facility] ER RASH ON LEFT ARM [id number] 02/22/2016 22:56:00 02/22/2016 23:42:00 DIS Emergency ABBY ROMO DO [facility] ER TONGUE SWELLING AND BLISTERS [id number] 01/10/2016 10:57:00 01/10/2016 23:59:59 CLS Outpatient KAYODE BUNN DO [facility] RAD CHRONIC RUQ PAIN,OVARIAN CYST [id number] 12/14/2015 19:55:00 12/14/2015 21:25:00 DIS Emergency LAURIE DIAZ MD [facility] ER CP,SOA [id number] 06/14/2015 02:40:00 06/14/2015 03:11:00 DIS Emergency ROSANNE ROMERO MD [facility] ER CONGESTION [id number] 05/12/2015 21:12:00 05/12/2015 23:08:00 DIS Emergency ABBY ROMO DO [facility] ER POSSIBLE ALLERGIC REACTION TO MEDS [id number] 04/09/2015 05:54:00 04/09/2015 08:30:00 DIS Emergency DARION BRIGGS MD [facility] ER POSS UTI,ABD PAIN [id number] 08/23/2014 15:42:00 08/23/2014 17:41:00 DIS Emergency LEO MOSER APRN [facility] ER FEVER ABD PAIN [id number] 07/07/2014 18:58:00 07/07/2014 23:59:59 CLS Outpatient YAMIL WELDON [facility] QUICK UA CULTURE [id number] 03/23/2014 20:51:00 03/23/2014 21:04:00 DIS Emergency MOSERLEO RESTAURANT RECRUITER [facility] ER EAR PAIN [id number] 09/01/2013 20:30:00 09/01/2013 21:01:00 DIS Emergency MOSERLEO RESTAURANT RECRUITER [facility] ER MULTIPLE COMPLAINTS [id number] 07/09/2013 17:22:00 07/09/2013 20:11:00 DIS Emergency BELINDA GRAJEDA [facility] ER FALL WITH HEAD INJ [id number] 03/14/2013 15:39:00 03/14/2013 23:59:59 CLS Outpatient KATINA ALLAN TELEGRAPH REPEATER MECHANIC [facility] QUICK UTI [id number] 03/11/2013 13:22:00 03/11/2013 23:59:59 CLS Outpatient LEONARDA, KENNEDY TELEGRAPH REPEATER MECHANIC [facility] QUICK EAR PAIN SINUS [id number] 08/31/2018 17:20:00 ACT Emergency BELINDA GRAJEDA [facility] ER FEVER,CONGESTED [id number] 09/26/2017 07:20:00 Document Registration [id number] 09/26/2017 07:20:00 Document Registration [id number] 09/26/2017 07:20:00 Document Registration [id number] 06/23/2015 13:15:00 Document Registration [id number] 07/17/2012 12:53:00 Document Registration [id number] 04/27/2012 21:37:00 Document Registration [id number] 06/05/2011 18:36:00 Document Registration [id number] 03/18/2011 14:53:00 Document Registration [id number] 02/24/2011 16:50:00 Document Registration [id number] 12/24/2010 15:31:00 Document Registration [id number] 10/27/2010 09:46:00 Document Registration [id number] 07/24/2016 05:05:00 Document Registration [id number] 03/02/2017 03:07:00 Document Registration [id number] 08/27/2018 11:40:00 08/27/2018 23:59:59 CLS Outpatient MARILEE MEJIA [facility] [id number] 04/04/2018 10:40:00 Document Registration [id number] 02/06/2018 15:00:00 Document Registration [id number] 10/10/2017 18:55:00 Document Registration [id number] 10/02/2017 10:00:00 Document Registration [id number] 08/28/2017 16:00:00 Document Registration [id number] 06/28/2017 14:10:00 Document Registration [id number] 10/14/2016 16:13:00 10/14/2016 23:59:00 DIS Outpatient Abner Middleton [id number] 10/14/2016 15:58:00 10/14/2016 23:59:00 DIS Outpatient Abner Middleton
--- NOTE | 2018-08-31 18:01 | ED Cough/URI ---
General Chief Complaint: Cough/Cold/Flu Symptoms Stated Complaint: FEVER,CONGESTED Nursing Triage Note: pt presents to ed and ambulates to room 10 without diffuclty. pt reports cough/cold congestion since sunday. pt states intermittent fever at home. Source: patient Exam Limitations: no limitations History of Present Illness Date Seen by Provider: Aug 31, 2018 Time Seen by Provider: 18:01 Initial Comments 23-year-old female patient presents to the emergency department with complaints of cough, congestion, rhinorrhea, sneezing, fever, chills, generalized body aches, and malaise since Sunday. Intermittent fevers at home. Denies taking any Tylenol or ibuprofen since 0800 this morning. Timing/Duration: constant, other (6 day onset) Severity/Quality: productive cough (clear productive cough) Prior Episodes/Possible Cause: no prior episodes Modifying Factors: Worse With Coughing Allergies and Home Medications Allergies Coded Allergies: Penicillins (Unverified Allergy, Unknown, 05/12/15) Uncoded Allergies: SULFA (Adverse Reaction, Unknown, N/V, 05/16/17) Home Medications Cefuroxime Axetil 250 Mg Tablet, 250 MG PO BID Prescribed by: LEO MOSER on 07/26/171951 Cefuroxime Axetil 500 Mg Tablet, 500 MG PO BID Prescribed by: LEO MOSER on 08/05/181735 Cetirizine HCl 10 Mg Capsule, 10 MG PO DAILY, (Reported) D-Methorphan Hb/P-Epd HCl/Bpm 118 Ml Syrup, 5 ML PO Q6H PRN for CONGESTION Prescribed by: LEO MOSER on 07/26/171951 Metronidazole 500 Mg Tablet, 500 MG PO BID Prescribed by: BELINDA CUELLAR on 12/15/172133 Montelukast Sodium 10 Mg Tablet, 10 MG PO DAILY, (Reported) Ondansetron 4 Mg Tab.rapdis, 4 MG PO Q4H PRN for NAUSEA/VOMITING Prescribed by: LEO MOSER on 08/05/181735 Phenazopyridine HCl 100 Mg Tablet, 100 MG PO Q6H PRN for PAIN-MILD TO MODERATE Prescribed by: BELINDA CUELLAR on 12/15/172133 Patient Home Medication List Home Medication List Reviewed: Yes Review of Systems Review of Systems Constitutional: see HPI, chills, fever, malaise EENTM: see HPI, ear pain, nose congestion, throat pain; No throat swelling Respiratory: see HPI, cough, phlegm; No short of breath, No stridor, No wheezing Cardiovascular: no symptoms reported Gastrointestinal: No abdominal pain, No constipation, No diarrhea; nausea; No vomiting Genitourinary: no symptoms reported Musculoskeletal: other (generalized body aches) Skin: no symptoms reported Psychiatric/Neurological: No Symptoms Reported All Other Systems Reviewed Negative Unless Noted: Yes (Negative excepted noted.) Past Aolecvl-Avvbaj-Horgmp Hx Past Med/Social Hx: Reviewed Nursing Past Med/Soc Hx Patient Social History Alcohol Use: Denies Use Recreational Drug Use: No Smoking Status: Never a Smoker Type Used: Cigarettes 2nd Hand Smoke Exposure: No Recent Foreign Travel: No Contact w/Someone Who Travel: No Recent Infectious Disease Expo: No Recent Hopitalizations: No Physical Abuse: No Sexual Abuse: No Mistreated: No Fear: No Immunizations Up To Date Tetanus Booster (TDap): Less than 5yrs Seasonal Allergies Seasonal Allergies: Yes Past Medical History Surgeries: Yes (TUBES IN EARS ) Respiratory: Yes Asthma Cardiac: No Neurological: No Reproductive Disorders: No Sexually Transmitted Disease: No Genitourinary: No Gastrointestinal: No Musculoskeletal: No Fractures Endocrine: No HEENT: No Cancer: No Psychosocial: No Integumentary: No Blood Disorders: No Family Medical History Reviewed Nursing Family Hx No Pertinent Family Hx Physical Exam Vital Signs - First Documented 08/31/18 17:53 Temp 98.6 Pulse 68 Resp 20 B/P (MAP) 105/57 (73) Pulse Ox 100 O2 Delivery Room Air Capillary Refill : Less Than 3 Seconds Height: 4'11.00" Weight: 80lbs. 12oz. 36.979037zm; 16.16 BMI Method:Stated General Appearance: WD/WN, no apparent distress HEENT: PERRL/EOMI, TMs normal, pharyngeal erythema, other (positive nasal congestion and rhinorrhea.) Neck: full range of motion, supple, lymphadenopathy (R) (TTP), lymphadenopathy (L) (TTP) Respiratory: lungs clear, normal breath sounds, no respiratory distress, no accessory muscle use Cardiovascular: normal peripheral pulses, regular rate, rhythm, no edema, no murmur Gastrointestinal: normal bowel sounds, non tender, soft, no organomegaly; No distended Neurologic/Psychiatric: alert, normal mood/affect, oriented x 3 Skin: normal color, warm/dry; No rash Progress/Results/Core Measures Suspected Sepsis Recent Fever Within 48 Hours: Yes Infection Criteria Present: None New/Unexplained Altered Menta: No Sepsis Screen: No Definite Risk SIRS Temperature:98.6 Pulse: 68 Respiratory Rate: 20 Blood Pressure 105 /57 Mean: 73 Results/Orders Micro Results Microbiology 08/31/18 Influenza Types A,B Antigen (JOSE JUAN) - Final, Complete My Orders Orders - BELINDA CUELLAR Influenza A And B Antigens (08/31/18 17:38) Ondansetron Oral Dissolve Tab (Zofran (08/31/18 18:23) Ibuprofen Tablet (Motrin Tablet) (08/31/18 18:23) Vital Signs/I&O 08/31/18 08/31/18 17:53 17:53 Temp 98.6 Pulse 68 Resp 20 B/P (MAP) 105/57 (73) Pulse Ox 100 O2 Delivery Room Air Capillary Refill : Less Than 3 Seconds Blood Pressure Mean: 73 Departure Communication (Admissions) Patient seen and evaluated. Laboratory findings discussed with the patient. Plan for discharge to home Impression Primary Impression: Influenza-like symptoms Disposition: HOME, SELF-CARE Condition: Improved Departure-Patient Inst. Decision time for Depature: 18:31 Referrals: [facility] (PCP) Primary Care Physician IVETH BENDER (Family) Primary Care Physician Patient Instructions: Flu, Adult (DC) Add. Discharge Instructions: All discharge instructions reviewed with patient and/or family. Voiced understanding. Medications as instructed. Tylenol extra strength over-the- counter as directed for pain or fever. Ibuprofen [id number] as directed for fever or pain. Push fluids. Gczg-ula-uyqcygn decongestants and antihistamines as needed for symptoms. Follow-up with your family practitioner for recheck as an outpatient if no improvement in symptoms. Return to the emergency department for worsened symptoms or any other concerns. Scripts Prednisone (Prednisone) 20 Mg Tab 40 MG PO DAILY, #10 TAB 0 Refills Prov: BELINDA CUELLAR 08/31/18 BELINDA CUELLAR Aug 31, 2018 18:01
[2018-08-31] MEDS ORDERED: ONDANSETRON 4 MG (ZOFRAN) ORAL DISSOLVE TAB SL STA (18:23)
[2018-08-31] MEDS ORDERED: IBUPROFEN TABLET 200 MG TAB PO STA (18:23)
[2018-08-31] MEDS ORDERED: PRD20T PO (18:32)
[2018-08-31] MEDS ORDERED: ONDA4TAB11 PO (18:42)
[2018-08-31 18:44] VITALS: BP 115/70
== END 2018-08-31 18:44 | disposition home or self-care (01) ==
LOC: EDUNIT# 17:19 → ER 17:20
DX: J11.1 Influenza due to unidentified influenza virus with other respiratory manifestations (principal); J45.909 Unspecified asthma, uncomplicated; Z88.0 Allergy status to penicillin; Z88.2 Allergy status to sulfonamides
CPT/HCPCS: 87804

== ENCOUNTER 2018-11-02 17:46 | Emergency (ER) | payer SELFPAY ==
[~2018-11-02] VITALS: Ht 149.9 cm; Wt 36.3 kg
[~2018-11-02 17:46] MED LIST changes: +METR-145 PO; -METR-197 PO
--- OUTSIDE RECORDS SUMMARY | 2018-11-02 18:05 | XMS REPORT | Continuity of Care Document ---
Author Author [facility] Address Unknown Phone Unavailable Allergies Active Description Code Type Severity Reaction Onset Reported/Identified Relationship to Patient Clinical Status Yes Penicillins Drug Allergy N/A N/A 08/19/2014 Yes Penicillins [id number] Drug Allergy Unknown N/A 05/12/2015 Yes SULFA [...] LEVEL TO OTH NEC 09/01/2013 LEO MOSER REGIONAL ENGINEER Ot 462 ACUTE PHARYNGITIS 03/23/2014 LEO MOSER APRN Ot 465.9 ACUTE URI NOS 08/19/2014 PALOMO REGIONAL ENGINEER, JOSE RAMON R 462 ACUTE PHARYNGITIS 08/19/2014 MADL REGIONAL ENGINEER, IVETH L 462 ACUTE PHARYNGITIS 08/19/2014 MADL REGIONAL ENGINEER, IVETH L 462 ACUTE PHARYNGITIS 08/19/2014 MADL REGIONAL ENGINEER, IVETH L 462 ACUTE PHARYNGITIS 08/23/2014 LEO MOSER APRN Ot 780.60 FEVER, UNSPECIFIED 08/23/2014 LEO MOSER REGIONAL ENGINEER Ot 789.00 ABDOMINAL PAIN, UNSPECIFIED SITE 09/07/2014 MADL REGIONAL ENGINEER, IVETH L 381.01 ACUTE SEROUS OTITIS MEDIA 09/07/2014 MADL REGIONAL ENGINEER, IVETH L 477.9 ALLERGIC RHINITIS CAUSE UNSPECIFIED 09/07/2014 MADL REGIONAL ENGINEER, IVETH L 493.90 ASTHMA UNSPECIFIED 09/07/2014 MADL REGIONAL ENGINEER, IVETH L 381.01 ACUTE SEROUS OTITIS MEDIA 09/07/2014 MADL REGIONAL ENGINEER, IVETH L 477.9 ALLERGIC RHINITIS CAUSE UNSPECIFIED 09/07/2014 MADL REGIONAL ENGINEER, IVETH L 493.90 ASTHMA UNSPECIFIED 09/07/2014 MADL REGIONAL ENGINEER, IVETH L 381.01 ACUTE SEROUS OTITIS MEDIA 09/07/2014 MADL REGIONAL ENGINEER, IVETH L 477.9 ALLERGIC RHINITIS CAUSE UNSPECIFIED 09/07/2014 MADL REGIONAL ENGINEER, IVETH L 493.90 ASTHMA UNSPECIFIED 10/20/2014 MADL REGIONAL ENGINEER, IVETH L 780.60 FEVER UNSPECIFIED 10/20/2014 MADL REGIONAL ENGINEER, IVETH L 780.60 FEVER UNSPECIFIED 10/22/2014 MADL REGIONAL ENGINEER, IVETH L 465.9 UPPER RESPIRATORY INFECTION 04/09/2015 [...] Joel Ot Y92.[address] IN [facility] NON-INSTITUT (PRIVATE 05/21/2016 BUNN DO, KAYODE [...] OF VULVA AND VAGINA 07/26/2016 LEO MOSER REGIONAL ENGINEER Ot R21 RASH AND OTHER NONSPECIFIC SKIN [...] LOWER ABDOMINAL PAIN, UNSPECIFIED 01/02/2017 LEO MOSER REGIONAL ENGINEER Ot R30.0 DYSURIA 01/02/2017 BUNN DO, KAYODE [...] R10.9 UNSPECIFIED ABDOMINAL PAIN 07/04/2017 NAKUL ZEPEDA MANAGER [employer]ELOPMENT Ot J45.909 UNSPECIFIED ASTHMA, UNCOMPLICATED 07/04/2017 KATELYN, NAKUL MANAGER [employer] DEVELOPMENT Ot N39.0 URINARY TRACT INFECTION, SITE NOT SPECIF 07/10/2017 KATELYN NAKUL MANAGER [employer] DEVELOPMENT Ot J45.909 UNSPECIFIED ASTHMA, UNCOMPLICATED 07/10/2017 KATELYN, NAKUL MANAGER [employer] DEVELOPMENT Ot N39.0 URINARY TRACT INFECTION, SITE NOT [...] J45.909 UNSPECIFIED ASTHMA, UNCOMPLICATED 06/12/2018 LEO MOSER REGIONAL ENGINEER Ot K59.00 CONSTIPATION, UNSPECIFIED 06/12/2018 LEO MOSER REGIONAL ENGINEER Ot R10.11 RIGHT UPPER QUADRANT PAIN 06/12/2018 LEO MOSER APRN Ot Z88.0 ALLERGY STATUS TO PENICILLIN 06/12/2018 LEO MOSER REGIONAL ENGINEER Ot Z88.2 ALLERGY STATUS TO SULFONAMIDES STATUS 08/07/2018 LEO MOSER APRN Ot J45.909 UNSPECIFIED ASTHMA, UNCOMPLICATED 08/07/2018 LEO MOSER APRN Ot N39.0 URINARY TRACT INFECTION, SITE NOT SPECIF 08/07/2018 LEO MOSER REGIONAL ENGINEER Ot R10.30 LOWER ABDOMINAL PAIN, UNSPECIFIED 08/07/2018 LEO MOSER REGIONAL ENGINEER Ot Z87.891 PERSONAL HISTORY OF NICOTINE DEPENDENCE 08/07/2018 LEO MOSER REGIONAL ENGINEER Ot Z88.0 ALLERGY STATUS TO PENICILLIN 08/07/2018 LEO MOSER REGIONAL ENGINEER Ot Z88.2 ALLERGY STATUS TO SULFONAMIDES STATUS 09/04/2018 BELINDA GRAJEDA Ot J11.1 FLU DUE TO UNIDENTIFIED INFLUENZA VIRUS 09/04/2018 BELINDA GRAJEDA Ot J45.909 UNSPECIFIED ASTHMA, UNCOMPLICATED 09/04/2018 BELINDA GRAJEDA Ot R50.9 FEVER, UNSPECIFIED 09/04/2018 BELINDA GRAJEDA Ot Z88.0 ALLERGY STATUS TO PENICILLIN 09/04/2018 BELINDA GRAJEDA Ot Z88.2 ALLERGY STATUS TO SULFONAMIDES STATUS 09/05/2018 BELINDA GRAJEDA Ot J45.909 UNSPECIFIED ASTHMA, UNCOMPLICATED 09/05/2018 BELINDA GRAJEDA Ot R05 COUGH 09/05/2018 BELINDA GRAJEDA Ot R50.9 FEVER, UNSPECIFIED 09/05/2018 BELINDA GRAJEDA L Ot R53.81 OTHER MALAISE 09/05/2018 BELINDA GRAJEDA Ot Z88.0 ALLERGY STATUS TO PENICILLIN 09/05/2018 BELINDA GRAJEDA Ot Z88.2 ALLERGY STATUS TO SULFONAMIDES STATUS 09/05/2018 BELINDA GRAJEDA Ot J45.909 UNSPECIFIED ASTHMA, UNCOMPLICATED 09/05/2018 BELINDA GRAJEDA Ot R05 COUGH 09/05/2018 BELINDA GRAJEDA Ot R50.9 FEVER, UNSPECIFIED 09/05/2018 BELINDA GRAJEDA Ot R53.81 OTHER MALAISE 09/05/2018 BELINDA GRAJEDA Ot Z88.0 ALLERGY STATUS TO PENICILLIN 09/05/2018 BELINDA GRAJEDA Ot Z88.2 ALLERGY STATUS TO SULFONAMIDES STATUS Procedures Code [place] [address] STREP A (IN-HOUSE) 08/19/2014 35363 THERAPUTIC INJ SQ/IM 10/20/2014 J3420 B12 VITAMIN [...] CULTURE RESULTS <10,000 Gram Positive Mixed Maryjane [id number] Skin Contaminant [id number] Further Workup done CULTURE SOURCE URINE CULTURE [...] NRG STATEMENT OF ADEQUACY: NRG INTERPRETATION/RESULT: NRG UNEMPLOYMENT INSURANCE DIRECTOR: NRG INFECTION: NRG COMMENT NRG Complete urinalysis [...] SEE REPORT NRG COLONY COUNT . NRG Influenza virus A and B antigen detection - 08/31/18 17:49 FLU RESULT NEGATIVE FOR INFLUENZA A AND B ANTIGENS BY IA NRG Encounters ACCT No. Visit Date/Time Discharge Status Pt. Type Provider Facility Loc./Unit Complaint [id number] 10/22/2014 13:30:00 10/22/2014 23:59:59 CLS Outpatient IVETH BENDER APRN L [id number] 10/20/2014 09:21:00 10/20/2014 23:59:59 CLS Outpatient NAPOLEON XIENIVETH L [id number] 09/07/2014 15:17:00 09/07/2014 23:59:59 CLS Outpatient IVETH BENDER APRN L [id number] 08/19/2014 13:29:00 08/19/2014 23:59:59 [facility] Outpatient JOSE RAMON PALOMO APRN [id number] 07/01/2017 12:06:00 Document Registration [id number] 08/26/2016 07:05:00 Document Registration [id number] 06/14/2015 03:00:16 ACT Document Registration [id number] 08/31/2018 17:20:00 08/31/2018 18:44:00 DIS Outpatient BELINDA GRAJEDA [facility] ER FEVER,CONGESTED [id number] 08/05/2018 16:56:00 08/05/2018 18:04:00 DIS Outpatient LEO MOSER REGIONAL ENGINEER Via [facility] ER UTI/ABD AND BACK PAIN/N/V [id number] 06/09/2018 21:08:00 06/09/2018 22:32:00 DIS Outpatient LEO MOSER APRN [facility] ER ABD PAIN [id number] 12/15/2017 19:20:00 12/15/2017 21:49:00 DIS Emergency BELINDA GRAJEDA [facility] ER ABDOMEN PAIN [id number] 07/26/2017 18:15:00 07/26/2017 19:55:00 DIS Emergency LEO MOSER APRN [facility] ER SINUS PROBLEMS;COUGH; POSSIBLE UTI [id number] 07/04/2017 19:52:00 07/04/2017 23:20:00 DIS Emergency NAKUL ZEPEDA [facility] ER RT SIDED ABD PAIN [id number] 05/14/2017 12:55:00 05/14/2017 13:36:00 DIS Emergency LEO MOSER APRN Via [facility] ER THINKS SHE HAS A UTI [id number] 12/31/2016 21:07:00 12/31/2016 21:43:00 DIS Emergency LEO MOSER APRN [facility] ER ABD PAIN, BLOOD IN URINE, FREQUENT URINATION [id number] 10/14/2016 17:39:00 10/14/2016 21:00:00 DIS Emergency BELINDA GRAJEDA [facility] ER ABD SWELLING/PAIN/ NAUSEA/UTI [id number] 09/25/2016 01:44:00 09/25/2016 02:16:00 DIS Emergency LAURIE DIAZ MD [facility] ER LEGS NUMB, BODY SHAKES , CHEST PAIN [id number] 08/30/2016 05:32:00 08/30/2016 09:11:00 DIS Emergency LAURIE DIAZ MD [facility] ER L SIDE PAIN [id number] 07/25/2016 10:54:00 07/25/2016 11:12:00 DIS Emergency LEO MOSER APRN [facility] ER POSS MED REACTION FACIAL SWELLING/RASH [id number] 07/21/2016 12:33:00 07/21/2016 16:48:00 DIS Emergency ABBY ROMO DO [facility] ER ABD PAIN [id number] 07/17/2016 13:42:00 07/17/2016 23:59:59 CLS Emergency LEO MOSER APRN [facility] ER SORE THROAT SWOLLEN GLANDS BLISTERS IN MOUTH [id number] 05/21/2016 01:58:00 05/21/2016 02:58:00 DIS Emergency AUSTIN BAÑUELOS MD [facility] ER R LEG BUG BITE [id number] 04/28/2016 19:55:00 04/28/2016 20:28:00 DIS Emergency LEO OMSER APRN [facility] ER CONGESTION,FEVER,POSSIBLE [id number] 03/30/2016 19:48:00 03/30/2016 20:50:00 DIS Emergency BELINDA GRAJEDA [facility] ER RASH ON LEFT ARM [id number] 02/22/2016 22:56:00 02/22/2016 23:42:00 DIS Emergency ABBY ROMO DO [facility] ER TONGUE SWELLING AND BLISTERS [id number] 01/10/2016 10:57:00 01/10/2016 23:59:59 CLS Outpatient BUNNKAYODE Ruiz DO [facility] RAD CHRONIC RUQ PAIN,OVARIAN CYST [id number] 12/14/2015 19:55:00 12/14/2015 21:25:00 DIS Emergency LAURIE DIAZ MD [facility] ER CP,SOA [id number] 06/14/2015 02:40:00 06/14/2015 03:11:00 DIS Emergency ROSANNE ROMERO MD [facility] ER CONGESTION [id number] 05/12/2015 21:12:00 05/12/2015 23:08:00 DIS Emergency ABBY ROMO DO [facility] ER POSSIBLE ALLERGIC REACTION TO MEDS [id number] 04/09/2015 05:54:00 04/09/2015 08:30:00 DIS Emergency DARION BRIGGS MD Via [facility] ER POSS UTI,ABD PAIN [id number] 08/23/2014 15:42:00 08/23/2014 17:41:00 DIS Emergency LEO MOSER APRN [facility] ER FEVER ABD PAIN [id number] 07/07/2014 18:58:00 07/07/2014 23:59:59 CLS Outpatient YAMIL WELDON [facility] QUICK UA CULTURE [id number] 03/23/2014 20:51:00 03/23/2014 21:04:00 DIS Emergency LEO MOSER APRN [facility] ER EAR PAIN [id number] 09/01/2013 20:30:00 09/01/2013 21:01:00 DIS Emergency SHANTI LEO Ferris REGIONAL ENGINEER [facility] ER MULTIPLE COMPLAINTS [id number] 07/09/2013 17:22:00 07/09/2013 20:11:00 DIS Emergency ALISA NEWTON BELINDA L [facility] ER FALL WITH HEAD INJ [id number] 03/14/2013 15:39:00 03/14/2013 23:59:59 CLS Outpatient KATINA ALLAN R MANAGER [employer] [facility] QUICK UTI [id number] 03/11/2013 13:22:00 03/11/2013 23:59:59 CLS Outpatient KENNEDY BROWER MANAGER [employer]OP[employer] [facility] QUICK EAR PAIN SINUS [id number] 09/26/2017 07:20:00 Document Registration [id number] 09/26/2017 07:20:00 Document Registration [id number] 09/26/2017 07:20:00 Document Registration [id number] 06/23/2015 13:15:00 Document Registration [id number] 07/17/2012 12:53:00 Document Registration [id number] 04/27/2012 21:37:00 Document Registration [id number] 06/05/2011 18:36:00 Document Registration [id number] 03/18/2011 14:53:00 Document Registration [id number] 02/24/2011 16:50:00 Document Registration [id number] 12/24/2010 15:31:00 Document Registration [id number] 10/27/2010 09:46:00 Document Registration [id number] 07/24/2016 05:05:00 Document Registration [id number] 03/02/2017 03:07:00 Document Registration [id number] 10/25/2018 13:00:00 10/25/2018 23:59:59 CLS Outpatient MARILEE MEJIA [facility] [id number] 04/04/2018 10:40:00 Document Registration [id number] 02/06/2018 15:00:00 Document Registration [id number] 10/10/2017 18:55:00 Document Registration [id number] 10/02/2017 10:00:00 Document Registration [id number] 08/28/2017 16:00:00 Document Registration [id number] 06/28/2017 14:10:00 Document Registration [id number] 10/14/2016 16:13:00 10/14/2016 23:59:00 DIS Outpatient Abner Middleton [id number] 10/14/2016 15:58:00 10/14/2016 23:59:00 DIS Outpatient Abner Middleton
--- NOTE | 2018-11-02 19:30 | ED Abdominal Pain ---
General Chief Complaint: Abdominal/GI Problems Stated Complaint: FEVER,NAUSEA,CONGESTED Nursing Triage Note: Pt c/o RUQ abd pain x3 weeks. Pt was seen by PCP at [facility] and had gallbladder US done which was negative. Pt was dx w/ ulcer and put on protonix and carafate. Pt reports continued RUQ abd pain as well as nausea and diarrhea. Pt reports reflux and burning epigastric and esophageal sensation. Sepsis Screen: No Definite Risk Source of Information: Patient, Other (significant other) Exam Limitations: No Limitations History of Present Illness Date Seen by Provider: Nov 02, 2018 Time Seen by Provider: 19:30 Initial Comments 23-year-old female patient presents to the emergency Department with right upper quadrant pain 3 weeks. Patient was seen by her PCP at [facility] with a negative ultrasound of the gallbladder. Patient was diagnosed with a gastric ulcer/reflux and given Protonix and Carafate. Patient denies improvement in symptoms. Also complains of nausea and diarrhea. Timing/Duration: Getting Worse, Other (3 wk onset) Severity/Quality: Burning, Cramping, Sharp Location: RUQ Radiation: Epigastric, Other (esophagus) Activities at Onset: None Modifying Factors: Worsens With Eating Allergies and Home Medications Allergies Coded Allergies: Penicillins (Unverified Allergy, Unknown, 05/12/15) Sulfa (Sulfonamide Antibiotics) (Verified Allergy, Unknown, 11/02/18) Home Medications Cefuroxime Axetil 250 Mg Tablet, 250 MG PO BID Prescribed by: LEO MOSER on 07/26/171951 Cefuroxime Axetil 500 Mg Tablet, 500 MG PO BID Prescribed by: LEO MOSER on 08/05/18 173 Cetirizine HCl 10 Mg Capsule, 10 MG PO DAILY, (Reported) Ciprofloxacin HCl 500 Mg Tablet, 500 MG PO BID Prescribed by: BELINDA CUELLAR on 11/02/182133 D-Methorphan Hb/P-Epd HCl/Bpm 118 Ml Syrup, 5 ML PO Q6H PRN for CONGESTION Prescribed by: LEO MOSER on 07/26/171951 Metronidazole 500 Mg Tablet, 500 MG PO BID Prescribed by: BELINDA CUELLAR on 12/15/172133 Montelukast Sodium 10 Mg Tablet, 10 MG PO DAILY, (Reported) Ondansetron 4 Mg Tab.rapdis, 4 MG PO Q4H PRN for NAUSEA/VOMITING Prescribed by: LEO MOSER on 08/05/18 1736 Ondansetron 4 Mg Tab.rapdis, 4 MG PO Q4H PRN for NAUSEA/VOMITING Prescribed by: BELINDA CUELLAR on 08/31/18 1842 Ondansetron 4 Mg Tab.rapdis, 4 MG PO Q4H PRN for NAUSEA/VOMITING Prescribed by: BELINDA CUELLAR on 11/02/182133 Phenazopyridine HCl 100 Mg Tablet, 100 MG PO Q6H PRN for PAIN-MILD TO MODERATE Prescribed by: BELINDA CUELLAR on 12/15/172133 Prednisone 20 Mg Tab, 40 MG PO DAILY Prescribed by: BELINDA CUELLAR on 08/31/18 183 Patient Home Medication List Home Medication List Reviewed: Yes Review of Systems Review of Systems Constitutional: chills; No fever; malaise EENTM: No Symptoms Reported Respiratory: Cough; Denies Shortness of Air, Denies Stridor, Denies Wheezing Cardiovascular: No Symptoms Reported Gastrointestinal: See HPI, Abdomen Distended, Abdominal Pain; Denies Blood Streaked Stools, Denies Constipated; Diarrhea; Denies Difficulty Swallowing; Nausea, Poor Appetite, Poor Fluid Intake; Denies Rectal Bleeding, Denies Vomiting Genitourinary: No Symptoms Reported Skin: no symptoms reported Psychiatric/Neurological: No Symptoms Reported All Other Systems Reviewed Negative Unless Noted: Yes (Negative excepted noted.) Past [place]-Ofjppa-Fkzjpr Hx Past Med/Social Hx: Reviewed Nursing Past Med/Soc Hx Patient Social History Alcohol Use: Denies Use Recreational Drug Use: No Smoking Status: Never a Smoker Type Used: Cigarettes 2nd Hand Smoke Exposure: No Recent Foreign Travel: No Contact w/Someone Who Travel: No Recent Infectious Disease Expo: No Recent Hopitalizations: No Physical Abuse: No Sexual Abuse: No Immunizations Up To Date Tetanus Booster (TDap): Less than 5yrs Seasonal Allergies Seasonal Allergies: Yes Past Medical History Surgeries: Yes (TUBES IN EARS ) Respiratory: Yes Asthma Cardiac: No Neurological: No Reproductive Disorders: No Sexually Transmitted Disease: No Genitourinary: No Gastrointestinal: Yes Irritable Bowel Musculoskeletal: No Fractures Endocrine: No HEENT: No Cancer: No Psychosocial: No Integumentary: No Blood Disorders: No Family Medical History Reviewed Nursing Family Hx No Pertinent Family Hx Physical Exam Vital Signs Vital Signs - First Documented 11/02/18 18:30 Temp 98.9 Pulse 102 Resp 18 B/P (MAP) 98/60 (73) Pulse Ox 100 O2 Delivery Room Air Capillary Refill : Less Than 3 Seconds Height/Weight/BMI Height: 4'11.00" Weight: 80lbs. 12oz. [id number]; 16.16 BMI Method:Stated General Appearance: WD/WN, no apparent distress HEENT: PERRL/EOMI, normal ENT inspection, TMs normal, pharynx normal Neck: non-tender, supple, normal inspection Respiratory: lungs clear, normal breath sounds, no respiratory distress, no accessory muscle use Cardiovascular: normal peripheral pulses, regular rate, rhythm, no edema, no murmur Gastrointestinal: normal bowel sounds, no organomegaly, distended, guarding ( epigastric and ruq guarding); No rebound; tenderness (generalized tenderness. ) Extremities: no pedal edema, normal capillary refill Back: normal inspection, no CVA tenderness Neurologic/Psychiatric: alert, normal mood/affect, oriented x 3 Skin: normal color, warm/dry Progress/Results/Core Measures Results/Orders Lab Results Laboratory Tests Test 11/02/18 19:43 11/02/18 19:59 Range/Units Urine Color YELLOW Urine Clarity VERY CLOUDY H Urine pH 7 5-9 Urine Specific Proctor 1.010 L 1.016-1.022 Urine Protein 2+ H NEGATIVE Urine Glucose (UA) NEGATIVE NEGATIVE Urine Ketones NEGATIVE NEGATIVE Urine Nitrite NEGATIVE NEGATIVE Urine Bilirubin NEGATIVE NEGATIVE Urine Urobilinogen 1 NORMAL MG/DL Urine Leukocyte Esterase 2+ H NEGATIVE Urine RBC (Auto) 1+ H NEGATIVE Urine RBC RARE /HPF Urine WBC 2-5 /HPF Urine Squamous Epithelial Cells 5-10 /HPF Urine Crystals NONE /LPF Urine Bacteria MODERATE H /HPF Urine Casts NONE /LPF Urine Mucus LARGE H /LPF Urine Culture Indicated NO White Blood Count 7.8 4.3-11.0 10^3/uL Red Blood Count 3.96 L 4.35-5.85 10^6/uL Hemoglobin 12.0 11.5-16.0 G/DL Hematocrit 35 35-52 % Mean Corpuscular Volume 88 80-99 FL Mean Corpuscular Hemoglobin 30 25-34 PG Mean Corpuscular Hemoglobin Concent 34 32-36 G/DL Red Cell Distribution Width 12.0 10.0-14.5 % Platelet Count 213 130-400 10^3/uL Mean Platelet Volume 9.6 7.4-10.4 FL Neutrophils (%) (Auto) 74 42-75 % Lymphocytes (%) (Auto) 17 12-44 % Monocytes (%) (Auto) 8 0-12 % Eosinophils (%) (Auto) 0 0-10 % Basophils (%) (Auto) 0 0-10 % Neutrophils # (Auto) 5.8 1.8-7.8 X 10^3 Lymphocytes # (Auto) 1.3 1.0-4.0 X 10^3 Monocytes # (Auto) 0.6 0.0-1.0 X 10^3 Eosinophils # (Auto) 0.0 0.0-0.3 10^3/uL Basophils # (Auto) 0.0 0.0-0.1 10^3/uL Sodium Level 140 135-145 MMOL/L Potassium Level 3.8 3.6-5.0 MMOL/L Chloride Level 106 98-107 MMOL/L Carbon Dioxide Level 24 21-32 MMOL/L Anion Gap 10 5-14 MMOL/L Blood Urea Nitrogen 11 7-18 MG/DL Creatinine 0.64 0.60-1.30 MG/DL Estimat Glomerular Filtration Rate > 60 BUN/Creatinine Ratio 17 Glucose Level 100 70-105 MG/DL Calcium Level 9.2 8.5-10.1 MG/DL Corrected Calcium 9.2 8.5-10.1 MG/DL Total Bilirubin 0.3 0.1-1.0 MG/DL Aspartate Amino Transf (AST/SGOT) 18 5-34 U/L Alanine Aminotransferase (ALT/SGPT) 10 0-55 U/L Alkaline Phosphatase 53 40-136 U/L Total Protein 6.8 6.4-8.2 GM/DL Albumin 4.0 3.2-4.5 GM/DL Lipase 49 8-78 U/L My Orders Orders - BELINDA CUELLAR Ct Abdomen/Pelvis W (11/02/18 19:39) Cbc With Automated Diff (11/02/18 19:39) Comprehensive Metabolic Panel (11/02/18 19:39) Lipase (11/02/18 19:39) Ua Culture If Indicated (11/02/18 19:39) Urine Bedside (11/02/18 19:39) Ns Iv 1000 Ml (Sodium Chloride 0.9%) (11/02/18 19:39) Ondansetron Injection (Zofran Injectio (11/02/18 19:45) Ketorolac Injection (Toradol Injection) (11/02/18 19:39) Iohexol Injection (Omnipaque 350 Mg/Ml 1 (11/02/18 20:30) Contrast Received (Contrast Received) (11/02/18 20:30) Ns (Ivpb) (Sodium Chloride 0.9% Ivpb Bag (11/02/18 20:30) Rx-Albuterol Inhaler (Rx-Proair) (11/02/18 21:31) Rx-Ondansetron Po (Rx-Zofran Po) (11/02/18 21:31) Azithromycin Tablet (Zithromax Tablet) (11/02/18 21:45) Medications Given in ED Current Medications Medications Dose Ordered Sig/Mikey Route Start Time Stop Time Status Last Admin Dose Admin Azithromycin 500 mg ONCE ONCE PO 11/02/18 21:45 11/02/18 21:46 DC 11/02/18 21:58 500 MG Ondansetron HCl 4 mg ONCE ONCE IVP 11/02/18 19:45 11/02/18 19:46 DC 11/02/18 20:22 4 MG Vital Signs/I&O 11/02/18 18:30 Temp 98.9 Pulse 102 Resp 18 B/P (MAP) 98/60 (73) Pulse Ox 100 O2 Delivery Room Air Blood Pressure Mean: 73 Diagnostic Imaging Diagonstic Imaging: CT Plain Films/CT/US/NM/MRI: abdomen, pelvis Comments CT ABDOMEN/PELVIS W PROCEDURE: CT abdomen and pelvis with contrast. TECHNIQUE: Multiple contiguous axial images were obtained through the abdomen and pelvis after administration of intravenous contrast. INDICATION: Right upper quadrant abdominal pain. Nausea and diarrhea. COMPARISON: 12/15/2017. FINDINGS: Included portions of the lung bases show patchy and confluent alveolar densities within the left lower lobe consistent with pneumonia. CT abdomen: Normal appendix is identified. Small bowel loops are nondistended. Moderate amount of air and stool is noted scattered throughout the colon. The kidneys, adrenal glands, spleen, pancreas and liver have a normal CT appearance. There is no loculated fluid collection, free fluid or free air within the abdomen. No abnormal mesenteric or retroperitoneal adenopathy is seen. Bony structures show no acute abnormalities. CT pelvis: Urinary bladder is grossly unremarkable. There is probable collapsing right ovarian follicle or cyst that measures 1.6 cm in diameter. There may be trace free fluid within the pelvis. There is no loculated fluid collection or free air. No abnormal adenopathy is seen. Bony structures show no acute abnormality. IMPRESSION: 1. Findings consistent with left lower lobe pneumonia. Followup with chest radiographs is recommended. 2. Moderate colonic air and stool. Please correlate for constipation. 3. Probable collapsing right ovarian follicle or cyst. 4. Small amount of free fluid within the pelvis; likely physiologic. Dictated on workstation # [id number] Reviewed: Reviewed by Me (radiology report reviewed by me) Departure Communication (Admissions) Patient seen and evaluated. All laboratory and diagnostic findings discussed with the patient. Patient denies any upper respiratory symptoms in light of findings of pneumonia to the left lung base. We'll plan for giving patient one dose of antibiotics in the emergency department and a take-home inhaler. Patient reports feeling much better at this time. Patient follow-up with [facility] on Sunday for recheck. Patient to call Sunday morning for appointment time. Impression Primary Impression: LLL pneumonia Qualified Codes: J18.1 - Lobar pneumonia, unspecified organism Additional Impressions: Right ovarian cyst Constipation Qualified Codes: K59.01 - Slow transit constipation GERD (gastroesophageal reflux disease) Qualified Codes: K21.0 - Gastro-esophageal reflux disease with esophagitis Disposition: HOME, SELF-CARE Condition: Improved Departure-Patient Inst. Decision time for Depature: 21:24 Referrals: [facility] (PCP) Primary Care Physician IVETH BENDER (Family) Primary Care Physician Patient Instructions: Community-Acquired Pneumonia, Adult (DC), Constipation in Adults, Ovarian Cyst (DC) Add. Discharge Instructions: All discharge instructions reviewed with patient and/or family. Voiced understanding. Medications as instructed. Continue the Protonix as instructed by your primary care provider. Dissolve the one tablet of the Carafate and 10 mL of water intake by mouth 30 minutes before meals and at bedtime. Tylenol extra strength [id number] as directed for pain or fever. Push fluids. Avoid NSAIDs (motrin or aleve), spicy foods, fatty foods, carbonated beverages, caffeinated beverages, smoking, secondhand smoke. Do not eat within 2 hours of lying down. Colace stool softener 100 mg by mouth 2-3 times daily as deemed for constipation. Hfpk-kia-nqzlcrg fiber supplement as directed. Miralax 17 g mixed with 8 ounces of fluids by mouth twice daily 3 days, then decrease dosage to 17 g by mouth at bedtime for constipation. Dulcolax 10 mg over-the- counter once daily for constipation. For severe constipation you may use magnesium citrate one bottle followed by 8 ounces of fluids 1 dose. Follow-up with your primary care provider this week for recheck, call Sunday for an appointment time. Return to the emergency department for worsened symptoms, vomiting blood, rectal bleeding, black stools, shortness of air, fever, or any other concerns. Scripts Ondansetron (Ondansetron Odt) 4 Mg Tab.rapdis 4 MG PO Q4H PRN for NAUSEA/VOMITING, #10 TAB 0 Refills Prov: BELINDA CUELLAR 11/02/18 Ciprofloxacin HCl (Ciprofloxacin HCl) 500 Mg Tablet 500 MG PO BID, #10 TAB 0 Refills Prov: BELINDA CUELLAR 11/02/18 Work/School Note: Work Release Form Date Seen in the Emergency Department: Nov 02, 2018 Return to Work: Nov 04, 2018 Copy Copies To 1: ADRIENNE COSTELLO GRETCHEN L PA Nov 02, 2018 19:30
[2018-11-02] MEDS ORDERED: KETOROLAC 30 MG/ML VIAL IVP STA (19:39)
[2018-11-02] MEDS ORDERED: NS IV 1000 ML 1,000 ML IV SCH (19:39)
[2018-11-02] MEDS ORDERED: ONDANSETRON 4 MG/2 ML (SDV) Z0FRAN IVP ONE (19:45)
[2018-11-02 19:50] LABS: BILIRUBIN,URINE NEGATIVE (NEGATIVE); CLARITY,URINE VERY CLOUDY; COLOR,URINE YELLOW; GLUCOSE, URINE (UA) NEGATIVE (NEGATIVE); KETONES,URINE NEGATIVE (NEGATIVE); LEUKOCYTE ESTERASE ,URINE 2+ (NEGATIVE); NITRITE,URINE NEGATIVE (NEGATIVE); PH,URINE 7 (5-9); PROTEIN,URINE 2+ (NEGATIVE); UROBILINOGEN,URINE 1 MG/DL (NORMAL)
[2018-11-02 19:59] LABS: BACTERIA,URINE MODERATE /HPF; RBC,URINE RARE /HPF
[2018-11-02 20:06] LABS: BASOPHILS % (AUTO) 0 % (0-10); EOSINOPHILS % (AUTO) 0 % (0-10); HEMATOCRIT 35 % (35-52); LYMPHOCYTES # (AUTO) 1.3 X 10^3 (1.0-4.0); LYMPHOCYTES % (AUTO) 17 % (12-44); MEAN CORPUSCULAR HEMOGLOBIN 30 PG (25-34); MEAN CORPUSCULAR HGB CONC 34 G/DL (32-36); MEAN CORPUSCULAR VOLUME 88 FL (80-99); MEAN PLATELET VOLUME 9.6 FL (7.4-10.4); MONOCYTES # (AUTO) 0.6 X 10^3 (0.0-1.0); MONOCYTES % (AUTO) 8 % (0-12); NEUTROPHILS # (AUTO) 5.8 X 10^3 (1.8-7.8); NEUTROPHILS % (AUTO) 74 % (42-75); PLATELET COUNT 213 10^3/uL (130-400); WHITE BLOOD COUNT 7.8 10^3/uL (4.3-11.0)
--- NOTE | 2018-11-02 20:15 | NUR ---
This RN to room to hang IV fluids. IV unable to be flushed at this time. IV site noted to be swollen. IV Dc'd at this time.
[2018-11-02 20:26] LABS: ALANINE AMINOTRANSFERASE 10 U/L (0-55); ALKALINE PHOSPHATASE 53 U/L (40-136); BILIRUBIN,TOTAL 0.3 MG/DL (0.1-1.0); BUN/CREATININE RATIO 17; CALCIUM 9.2 MG/DL (8.5-10.1); CARBON DIOXIDE 24 MMOL/L (21-32); CHLORIDE 106 MMOL/L (98-107); CREATININE SERUM 0.64 MG/DL (0.60-1.30); GFR ESTIMATED > 60; GLUCOSE 100 MG/DL (70-105); LIPASE 49 U/L (8-78); POTASSIUM 3.8 MMOL/L (3.6-5.0); SODIUM 140 MMOL/L (135-145); TOTAL PROTEIN 6.8 GM/DL (6.4-8.2)
[2018-11-02] MEDS ORDERED: IOHEXOL 350 MG/ML 100 ML (OMNIPAQUE 350) VIAL IV ONE (20:30)
[2018-11-02] MEDS ORDERED: RECEIVED CONTRAST (Hold Metformin) IV SCH (20:30)
[2018-11-02] MEDS ORDERED: NS 100 ML (IVPB) BAG IV ONE (20:30)
--- NOTE | 2018-11-02 21:09 | Diagnostic Imaging Report ---
PROCEDURE: CT abdomen and pelvis with contrast. TECHNIQUE: Multiple contiguous axial images were obtained through the abdomen and pelvis after administration of intravenous contrast. INDICATION: Right upper quadrant abdominal pain. Nausea and diarrhea. COMPARISON: 12/15/2017. FINDINGS: Included portions of the lung bases show patchy and confluent alveolar densities within the left lower lobe consistent with pneumonia. CT abdomen: Normal appendix is identified. Small bowel loops are nondistended. Moderate amount of air and stool is noted scattered throughout the colon. The kidneys, adrenal glands, spleen, pancreas and liver have a normal CT appearance. There is no loculated fluid collection, free fluid or free air within the abdomen. No abnormal mesenteric or retroperitoneal adenopathy is seen. Bony structures show no acute abnormalities. CT pelvis: Urinary bladder is grossly unremarkable. There is probable collapsing right ovarian follicle or cyst that measures 1.6 cm in diameter. There may be trace free fluid within the pelvis. There is no loculated fluid collection or free air. No abnormal adenopathy is seen. Bony structures show no acute abnormality. IMPRESSION: 1. Findings consistent with left lower lobe pneumonia. Followup with chest radiographs is recommended. 2. Moderate colonic air and stool. Please correlate for constipation. 3. Probable collapsing right ovarian follicle or cyst. 4. Small amount of free fluid within the pelvis; likely physiologic. Dictated by: Dictated on workstation # [id number]
[2018-11-02] MEDS ORDERED: RX-ONDANSETRON 4 MG ODT (ZOFRAN) PPK #4 PO STA (21:31)
[2018-11-02] MEDS ORDERED: RX-ALBUTEROL INHALER (PROAIR) 8 GM IH STA (21:31)
[2018-11-02] MEDS ORDERED: ONDA4TAB11 PO (21:34)
[2018-11-02] MEDS ORDERED: CIPR500T4 PO (21:34)
[2018-11-02] MEDS ORDERED: AZITHROMYCIN 250 MG TAB (ZITHROMAX) PO ONE (21:45)
[2018-11-02 21:59] VITALS: BP 98/60
== END 2018-11-02 21:59 | disposition home or self-care (01) ==
LOC: EDUNIT# 17:46 → ER 17:48
DX: N83.202 Unspecified ovarian cyst, left side (principal); J18.1 Lobar pneumonia, unspecified organism; K59.00 Constipation, unspecified; K21.9 Gastro-esophageal reflux disease without esophagitis; J45.909 Unspecified asthma, uncomplicated; K58.9 Irritable bowel syndrome, unspecified; Z88.0 Allergy status to penicillin; Z88.2 Allergy status to sulfonamides; Z79.52 Long term (current) use of systemic steroids; Z96.22 Myringotomy tube(s) status
CPT/HCPCS: 36415; 74177; 80053; 81000; 83690; 84703; 85025

== ENCOUNTER 2018-12-05 10:00 | Outpatient (CLI) | payer OTHER ==
[~2018-12-05] VITALS: Ht 149.9 cm; Wt 36.3 kg
[~2018-12-05 10:00] MED LIST changes: +LINA145C PO; +PANT40TA3 PO
== END 2018-12-05 10:48 | disposition home or self-care (01) ==
LOC: PREOP 10:00
PROVIDERS: ATTEND Surgery
DX: Z01.818 Encounter for other preprocedural examination (principal)

== ENCOUNTER 2018-12-09 09:05 | Day surgery (SDC) | payer OTHER ==
[2018-12-09] MEDS ORDERED: LACTATED RINGERS 1,000 ML IV ONE (09:13)
[2018-12-09] MEDS ORDERED: LACTATED RINGERS 1,000 ML IV STA (09:18)
[2018-12-09] MEDS ORDERED: HURRICAINE EXT TUBE (BENZOCAINE) XX PRN (09:30)
[2018-12-09 09:36] VITALS: BP 109/72
[2018-12-09] MEDS ORDERED: HURRICAINE EXT TUBE (BENZOCAINE) ONE (10:05)
[2018-12-09] MEDS ORDERED: MIDAZOLAM 5 MG/5 ML (VERSED) VIAL ONE (10:12)
[2018-12-09] MEDS ORDERED: PROPOFOL INJECTION 50 ML IV ONE (10:12)
--- NOTE | 2018-12-09 10:15 | Progress Note-Pre Operative ---
Pre-Operative Progress Note H&P Reviewed The H&P was reviewed, patient examined and no changes noted. Time Seen by Provider: 10:12 Date H&P Reviewed: Dec 09, 2018 Time H&P Reviewed: 10:13 Pre-Operative Diagnosis: Chronic constipation, Gastritis MESHA GOETZ DO Dec 09, 2018 10:15
--- NOTE | 2018-12-09 10:56 | Progress Note-Post Operative ---
Post-Operative Progess Note Surgeon (s)/Plastic Worker (s) Surgeon MESHA GOETZ DO Plastic Worker: none Pre-Operative Diagnosis Chronic constipation, Gastritis Post-Operative Diagnosis Gastritis Chronic Constipation Internal hemorrhoids Anal fissure Procedure & Operative Findings Date of Procedure 12/09/18 Procedure Performed/Findings EGD with bx Colon with cold bx Anesthesia Type IV sedation by PRICING MANAGER Estimated Blood Loss Estimated blood loss (mL): Scant Specimens/Packing Specimens Removed Antral bx, Body of stomach bx x 3 TI bx MESHA GOETZ DO Dec 09, 2018 10:56
--- NOTE | 2018-12-09 10:58 | Endoscopy Discharge Instruct ---
Endo Procedure/Findings Findings 1.: Gastritis 2.: Internal Hemorrhoids Discharge Instructions - Activity: You might feel a little sleepy until tomorrow. This is due to the medicine you received to relax you. Until tomorrow, you should: NOT drive a car, operate machinery or power tools. NOT drink any alcoholic beverages. NOT make any important decisions or sign importortant papers. Do not return to work until tomorrow, unless otherwise instructed. Resume previous activities tomorrow. Diet: Start by taking liquids. If you tolerate liquids, advance to solid food. make an appointment for one week Instructions: 1.: EGD in 1 year Notify Physician - If you experience excessive bleeding, unusual abdominal pain, fever, or chest pain, contact your doctor immediately. Follow-Up: - I have received and understand the above instructions and will call my doctor if I have any further questions. Patient Signature Date Nurse Signature Other (Relationship) MESHA GOETZ DO Dec 09, 2018 10:58
[2018-12-09 11:15] VITALS: BP 119/75
[2018-12-09 11:50] VITALS: BP 98/65
[2018-12-09 11:55] VITALS: BP 98/65
--- NOTE | 2018-12-09 14:35 | Anesthesia-General Post-Op ---
MAC Patient Condition Mental Status/LOC: Same as Preop Cardiovascular: Satisfactory Nausea/Vomiting: Absent Respiratory: Satisfactory Pain: Controlled Complications: Absent Post Op Complications Complications None Follow Up Care/Instructions Patient Instructions None needed. Anesthesiology Discharge Order Discharge Order Patient is doing well, no complaints, stable vital signs, no apparent adverse anesthesia problems. No complications reported per nursing. SOPHIE MARTIN CRNA Dec 09, 2018 14:35
--- NOTE | 2018-12-10 05:21 | OPERATIVE REPORT ---
DATE OF SERVICE: PREOPERATIVE DIAGNOSES: Gastritis, constipation with rectal bleed. POSTOPERATIVE DIAGNOSES: 1. Gastritis. 2. Internal hemorrhoids. 3. Constipation. 4. Anal fissure. PROCEDURES: 1. EGD with biopsy. 2. Colonoscopy with biopsy. SURGEON: Galdino Villafuerte DO. WEIGHT LOSS COUNSELOR: None. ANESTHESIA: IV sedation by the EXECUTIVE DIRECTOR OF NURSING. SPECIMEN: Biopsies from the antrum and biopsy from the body of stomach as well as then biopsy of the terminal ileum. BLOOD LOSS: Scant. FLUIDS: Per anesthesia. POSTOPERATIVE CONDITION: Stable. INDICATION FOR PROCEDURE: The patient is a 23-year-old female who has been having severe constipation for the past four years, medication, has gone to the emergency room multiple times also had some pain in the stomach and gastritis and needed workup. FINDINGS: The patient had pretty severe gastritis. Picture was taken. Biopsy done. Colon otherwise looked normal. No strictures. Was a little bit twisty. She did have some pretty large internal hemorrhoids, but no other obvious pathology. PROCEDURE NOTE: After informed consent was obtained, the patient was brought to the endoscopy suite, placed in the bed left lateral decubitus position. She was administered IV sedation by the EXECUTIVE DIRECTOR OF NURSING who then monitored her vitals the entire time, heart rate, blood pressure and pulse ox and was first started with the EGD, pushed the scope down the mouth through the esophagus into the stomach. Upon entering the stomach noted gastritis, took a picture. Pushed in the duodenum. Duodenum looked okay, elected to do a biopsy of the antrum and then did 2 biopsies of the body of the stomach, retroflexed the scope. There was no hiatal hernia. GE junction looked okay and the rest of the esophagus looked okay. After suctioning out the air, pulled the scope through the stomach up the esophagus and out the mouth. Switched scopes, switched gloves and went down below start the colonoscopy pushed in all the way about 140 cm, able to get to the cecum was very twisted kind of hard to get here. Took a picture of appendiceal orifice then pushed into the terminal ileum, took a picture of some little bit of nodularity, so did a biopsy here. Saw some lymphoid aggregate in the cecum, took a picture of this and then slowly withdrew the scope insufflating to look circumferentially at the hope looking at the cecum up the ascending colon to the hepatic flexure, then down the transverse colon, splenic flexure, into the descending colon and down the sigmoid and finally in the rectum. Retroflexed and rectal vault, saw some at least grade II internal hemorrhoids, took a picture of these, also noted an anal fissure on the way out. Removed the scope. The patient tolerated the procedure and she was recovered in the endoscopy suite. Job ID: [id number] DocumentID: [id number] Dictated Date: 12/09/2018 18:39:10 Defect Cutter Date: 12/10/2018 05:20:44 Dictated By: GALDINO VILLAFUERTE DO
== END 2018-12-09 12:10 | disposition home or self-care (01) ==
LOC: ENDO 09:05
PROVIDERS: ATTEND Surgery
DX: K29.50 Unspecified chronic gastritis without bleeding (principal); B96.81 Helicobacter pylori [H. pylori] as the cause of diseases classified elsewhere; K64.8 Other hemorrhoids; K59.00 Constipation, unspecified; K60.2 Anal fissure, unspecified; K62.5 Hemorrhage of anus and rectum; K21.9 Gastro-esophageal reflux disease without esophagitis; J45.909 Unspecified asthma, uncomplicated; Z79.899 Other long term (current) drug therapy; Z88.0 Allergy status to penicillin; Z88.2 Allergy status to sulfonamides
CPT/HCPCS: 84703

== ENCOUNTER 2018-12-31 10:58 | Outpatient (RCR) | payer OTHER ==
[2019-03-19] MEDS ORDERED: HYDR30SU3 RC (21:21)
== END 2019-03-31 | disposition home or self-care (01) ==
LOC: LAB 10:58
PROVIDERS: ATTEND Surgery
DX: K29.50 Unspecified chronic gastritis without bleeding (principal); B96.81 Helicobacter pylori [H. pylori] as the cause of diseases classified elsewhere
CPT/HCPCS: 36415; 87338

== ENCOUNTER 2019-03-04 08:40 | Outpatient (RCR) | payer OTHER ==
[~2019-03-04 08:40] MED LIST changes: -CLAR250T PO; +[UNRECOGNIZED DRUG - CODE] PO
--- NOTE | 2019-03-05 17:12 | Physician Query-Final Dx ---
PAUL CASTILLO 03/05/19 1712: Final Diagnosis Give Final Diagnosis Please give Final Diagnosis Dr Villafuerte Please give a diagnosis for the fecal antigen test thank you MESHA VILLAFUERTE DO 03/08/19 1506: Final Diagnosis Give Final Diagnosis H. Pylori negative PAUL CASTILLO Mar 05, 2019 17:12 MESHA VILLAFUERTE DO Mar 08, 2019 15:06
[2019-03-19] MEDS ORDERED: HYDR30SU3 RC (21:21)
[2019-04-18] MEDS ORDERED: FAMO10TA43 PO (08:48)
[2019-04-18] MEDS ORDERED: FLUT9.9S16 NS (08:48)
[2019-04-18] MEDS ORDERED: SUCR1TAB36 PO (08:48)
[2019-04-18] MEDS ORDERED: OMEP20CA13 PO (08:48)
[2019-04-18] MEDS ORDERED: RT-ALBUINH IH (08:50)
== END 2019-06-01 | disposition home or self-care (01) ==
LOC: LAB 08:40
PROVIDERS: ATTEND Surgery
DX: Z11.2 Encounter for screening for other bacterial diseases (principal)
CPT/HCPCS: 36415; 87338

== ENCOUNTER 2019-03-19 20:23 | Emergency (ER) | payer SELFPAY ==
[~2019-03-19] VITALS: Ht 149.9 cm; Wt 38.6 kg
[~2019-03-19 20:23] MED LIST changes: +CLAR250T PO; -[UNRECOGNIZED DRUG - CODE] PO
[2019-03-19 21:00] LABS: BASOPHILS # (AUTO) 0.1 10^3/uL (0.0-0.1); BASOPHILS % (AUTO) 1 % (0-10); EOSINOPHILS # (AUTO) 0.1 10^3/uL (0.0-0.3); EOSINOPHILS % (AUTO) 1 % (0-10); HEMATOCRIT 39 % (35-52); HEMOGLOBIN 13.3 G/DL (11.5-16.0); LYMPHOCYTES # (AUTO) 2.2 X 10^3 (1.0-4.0); LYMPHOCYTES % (AUTO) 34 % (12-44); MEAN CORPUSCULAR HEMOGLOBIN 31 PG (25-34); MEAN CORPUSCULAR HGB CONC 34 G/DL (32-36); MEAN CORPUSCULAR VOLUME 90 FL (80-99); MEAN PLATELET VOLUME 9.7 FL (7.4-10.4); MONOCYTES # (AUTO) 0.4 X 10^3 (0.0-1.0); MONOCYTES % (AUTO) 7 % (0-12); NEUTROPHILS # (AUTO) 3.6 X 10^3 (1.8-7.8); NEUTROPHILS % (AUTO) 57 % (42-75); PLATELET COUNT 198 10^3/uL (130-400); RED CELL DISTRIBUTION WIDTH 12.7 % (10.0-14.5); WHITE BLOOD COUNT 6.3 10^3/uL (4.3-11.0)
[2019-03-19 21:13] LABS: ALANINE AMINOTRANSFERASE 39 U/L (0-55); ALBUMIN 4.4 GM/DL (3.2-4.5); ALKALINE PHOSPHATASE 47 U/L (40-136); BILIRUBIN,TOTAL 0.6 MG/DL (0.1-1.0); BUN/CREATININE RATIO 13; CALCIUM 9.4 MG/DL (8.5-10.1); CARBON DIOXIDE 23 MMOL/L (21-32); CHLORIDE 102 MMOL/L (98-107); CREATININE SERUM 0.72 MG/DL (0.60-1.30); GFR ESTIMATED > 60; GLUCOSE 81 MG/DL (70-105); POTASSIUM 3.4 MMOL/L (3.6-5.0); SODIUM 136 MMOL/L (135-145); TOTAL PROTEIN 7.1 GM/DL (6.4-8.2)
[2019-03-19 21:13] LABS: BILIRUBIN,URINE NEGATIVE (NEGATIVE); CLARITY,URINE CLEAR; COLOR,URINE YELLOW; GLUCOSE, URINE (UA) NEGATIVE (NEGATIVE); KETONES,URINE NEGATIVE (NEGATIVE); LEUKOCYTE ESTERASE ,URINE NEGATIVE (NEGATIVE); NITRITE,URINE NEGATIVE (NEGATIVE); PH,URINE 8 (5-9); PROTEIN,URINE NEGATIVE (NEGATIVE); UROBILINOGEN,URINE NORMAL (NORMAL)
[2019-03-19 21:20] LABS: BACTERIA,URINE TRACE /HPF
[2019-03-19] MEDS ORDERED: HYDR30SU3 RC (21:21)
--- NOTE | 2019-03-19 21:21 | ED GI ---
General Chief Complaint: Rect Problems Stated Complaint: BLOOD IN STOOL Nursing Triage Note: PT AMBULATES TO TO RM 9 WITH COMPLAINTS OF RECTAL BLEEDING. PT STATES SHE'S HAD SCANTS OF BLOOD IN HER STOOL OVER THE PAST MONTH AND NOTICED TODAY AT 1930 THAT THERE WAS A LARGE AMOUNT OF BLOOD IN THE TOILET AFTER PASSING A BOWEL MOVEMENT. PT HAD A COLONSCOPY ON 12/09/18 WHICH REVEALED HEMMORHOIDS. Sepsis Screen: No Definite Risk History of Present Illness Date Seen by Provider: Mar 19, 2019 Time Seen by Provider: 20:30 Initial Comments 23-year-old female presents for rectal bleeding. She's had multiple GI problems in the past few months. She had a colonoscopy on 12/09/18. She is followed by Dr. Villafuerte for GI ulcer and rectal bleeding. She recently had stool analysis which was negative for H. pylori. She reports passing some blood in m ost stools or noticing it on her toilet paper, tonight she had a large amount of blood in the toilet with her stool. SHe denies any weakness, dizziness, or fainting. She denies any rectal pain, she has intermittent abdominal pain related to the ulcer. She denies any change in that pain. Timing/Duration: Intermittent Severity/Quality: Mild Radiation: No Radiation Associated Symptoms: Denies Symptoms Allergies and Home Medications Allergies Coded Allergies: Penicillins (Unverified Allergy, Unknown, 05/12/15) Sulfa (Sulfonamide Antibiotics) (Verified Allergy, Unknown, 11/02/18) Home Medications Cetirizine HCl 10 Mg Capsule, 10 MG PO DAILY, (Reported) Hydrocortisone Acetate 30 Mg Supp.rect, 30 MG RC TID Prescribed by: NAKUL ZEPEDA on 03/19/192120 Linaclotide 145 Mcg Capsule, 145 MCG PO DAILY, (Reported) Montelukast Sodium 10 Mg Tablet, 10 MG PO DAILY, (Reported) Pantoprazole Sodium 40 Mg Tablet.dr, 40 MG PO DAILY, (Reported) Patient Home Medication List Home Medication List Reviewed: Yes Review of Systems Review of Systems Constitutional: no symptoms reported Gastrointestinal: See HPI, Blood Streaked Stools All Other Systems Reviewed Negative Unless Noted: Yes Past Acwwbny-Yjyzsl-Clzviy Hx Past Med/Social Hx: Reviewed Nursing Past Med/Soc Hx Patient Social History Alcohol Use: Denies Use Recreational Drug Use: No Smoking Status: Never a Smoker Type Used: Cigarettes 2nd Hand Smoke Exposure: No Recent Foreign Travel: No Contact w/Someone Who Travel: No Recent Infectious Disease Expo: No Recent Hopitalizations: No Immunizations Up To Date Tetanus Booster (TDap): Less than 5yrs Seasonal Allergies Seasonal Allergies: Yes Past Medical History Surgeries: Yes (TUBES IN EARS, wisdom teeth) Respiratory: Yes Asthma Cardiac: No Neurological: No : No Reproductive Disorders: No Sexually Transmitted Disease: No Genitourinary: No Gastrointestinal: Yes Gastroesophageal Reflux, Chronic Constipation, Irritable Bowel Musculoskeletal: No Fractures Endocrine: No HEENT: No Cancer: No Psychosocial: No Integumentary: No Blood Disorders: No Family Medical History No Pertinent Family Hx Physical Exam Vital Signs Vital Signs - First Documented 03/19/19 20:30 Temp 98.0 Pulse 68 Resp 18 B/P (MAP) 122/87 (99) Pulse Ox 100 O2 Delivery Room Air Capillary Refill : Less Than 3 Seconds Height/Weight/BMI Height: 4'11.00" Weight: 85lbs. 0.0oz. 38.414315gd; 16.2 BMI Method:Stated General Appearance: WD/WN, no apparent distress Respiratory: chest non-tender, lungs clear, normal breath sounds Cardiovascular: normal peripheral pulses, regular rate, rhythm Gastrointestinal: normal bowel sounds, non tender, soft; No distended, No guarding, No rebound, No tenderness Rectal: normal exam, normal rectal tone, heme negative stool (no stool in rectum for testing), hemorrhoids (internal with trace inflammation), tenderness Extremities: normal range of motion, non-tender, normal inspection Neurologic/Psychiatric: no motor/sensory deficits, alert, normal mood/affect, oriented x 3 Skin: normal color, warm/dry Progress/Results/Core Measures Results/Orders Lab Results Laboratory Tests Test 03/19/19 20:33 03/19/19 21:05 Range/Units White Blood Count 6.3 4.3-11.0 10^3/uL Red Blood Count 4.35 4.35-5.85 10^6/uL Hemoglobin 13.3 11.5-16.0 G/DL Hematocrit 39 35-52 % Mean Corpuscular Volume 90 80-99 FL Mean Corpuscular Hemoglobin 31 25-34 PG Mean Corpuscular Hemoglobin Concent 34 32-36 G/DL Red Cell Distribution Width 12.7 10.0-14.5 % Platelet Count 198 130-400 10^3/uL Mean Platelet Volume 9.7 7.4-10.4 FL Neutrophils (%) (Auto) 57 42-75 % Lymphocytes (%) (Auto) 34 12-44 % Monocytes (%) (Auto) 7 0-12 % Eosinophils (%) (Auto) 1 0-10 % Basophils (%) (Auto) 1 0-10 % Neutrophils # (Auto) 3.6 1.8-7.8 X 10^3 Lymphocytes # (Auto) 2.2 1.0-4.0 X 10^3 Monocytes # (Auto) 0.4 0.0-1.0 X 10^3 Eosinophils # (Auto) 0.1 0.0-0.3 10^3/uL Basophils # (Auto) 0.1 0.0-0.1 10^3/uL Sodium Level 136 135-145 MMOL/L Potassium Level 3.4 L 3.6-5.0 MMOL/L Chloride Level 102 98-107 MMOL/L Carbon Dioxide Level 23 21-32 MMOL/L Anion Gap 11 5-14 MMOL/L Blood Urea Nitrogen 9 7-18 MG/DL Creatinine 0.72 0.60-1.30 MG/DL Estimat Glomerular Filtration Rate > 60 BUN/Creatinine Ratio 13 Glucose Level 81 70-105 MG/DL Calcium Level 9.4 8.5-10.1 MG/DL Corrected Calcium 9.1 8.5-10.1 MG/DL Total Bilirubin 0.6 0.1-1.0 MG/DL Aspartate Amino Transf (AST/SGOT) 32 5-34 U/L Alanine Aminotransferase (ALT/SGPT) 39 0-55 U/L Alkaline Phosphatase 47 40-136 U/L Total Protein 7.1 6.4-8.2 GM/DL Albumin 4.4 3.2-4.5 GM/DL Urine Color YELLOW Urine Clarity CLEAR Urine pH 8 5-9 Urine Specific [place] 1.010 L 1.016-1.022 Urine Protein NEGATIVE NEGATIVE Urine Glucose (UA) NEGATIVE NEGATIVE Urine Ketones NEGATIVE NEGATIVE Urine Nitrite NEGATIVE NEGATIVE Urine Bilirubin NEGATIVE NEGATIVE Urine Urobilinogen NORMAL NORMAL MG/DL Urine Leukocyte Esterase NEGATIVE NEGATIVE Urine RBC (Auto) NEGATIVE NEGATIVE Urine RBC NONE /HPF Urine WBC NONE /HPF Urine Squamous Epithelial Cells 2-5 /HPF Urine Crystals NONE /LPF Urine Bacteria TRACE /HPF Urine Casts NONE /LPF Urine Mucus NEGATIVE /LPF Urine Culture Indicated NO My Orders Orders - NAKUL ZEPEDA Cbc With Automated Diff (03/19/19 20:51) Comprehensive Metabolic Panel (03/19/19 20:51) Ua Culture If Indicated (03/19/19 20:51) Vital Signs/I&O 03/19/19 03/19/19 20:30 21:27 Temp 98.0 98.0 Pulse 68 68 Resp 18 18 B/P (MAP) 122/87 (99) 122/87 (99) Pulse Ox 100 100 O2 Delivery Room Air Room Air Blood Pressure Mean: 99 Departure Impression Primary Impression: Rectal bleeding Disposition: 01 HOME, SELF-CARE Condition: Improved Departure-Patient Inst. Decision time for Depature: 21:15 Referrals: [facility]/ (PCP) Primary Care Physician MARILEE MEJIA APRN (Family) Primary Care Physician Patient Instructions: Hemorrhoids (DC), Bloody Stools, Adult (DC) Add. Discharge Instructions: Use preparation H to rectum for inflammation and pain. Obtain the hydrocortisone suppositories tomorrow and begin using. All Dr. Villafuerte's office tomorrow for earlier follow-up. Take an geih-yvx-xzzlyyj stool softener twice a day. Increase water in diet. Return to emergency department for new, urgent health care needs. All discharge instructions reviewed with patient and/or family. Voiced understanding. Scripts Hydrocortisone Acetate (Hydrocortisone Acetate) 30 Mg Supp.rect 30 MG RC TID, #20 SUPP.RECT 0 Refills Prov: NAKUL ZEPEDA 03/19/19 Copy Copies To 1: MESHA VILLAFUERTE AMY ARNP Mar 19, 2019 21:21
[2019-03-19 21:27] VITALS: BP 122/87
== END 2019-03-19 21:27 | disposition home or self-care (01) ==
LOC: EDUNIT# 20:23 → ER 20:24
DX: K62.5 Hemorrhage of anus and rectum (principal); J45.909 Unspecified asthma, uncomplicated; K21.9 Gastro-esophageal reflux disease without esophagitis; K58.9 Irritable bowel syndrome, unspecified; Z87.19 Personal history of other diseases of the digestive system; Z88.0 Allergy status to penicillin; Z88.2 Allergy status to sulfonamides
CPT/HCPCS: 36415; 80053; 81000; 84703; 85025

== ENCOUNTER 2019-03-21 21:20 | Emergency (ER) | payer SELFPAY ==
[~2019-03-21] VITALS: Ht 149.9 cm; Wt 38.6 kg
[~2019-03-21 21:20] MED LIST changes: +HYDR30SU3 RC
--- NOTE | 2019-03-21 21:22 | NUR ---
patient to room, c/o right eye swelling and redness on her eyelid. A&Ox4
[2019-03-21] MEDS ORDERED: predniSONE 20 MG TAB PO ONE (21:30)
[2019-03-21] MEDS ORDERED: diphenhydrAMINE 25 MG TAB (BENADRYL) PO ONE (21:30)
--- NOTE | 2019-03-21 21:33 | ED EENT ---
History of Present Illness General Stated Complaint: R EYE SWOLLEN Source: patient Exam Limitations: no limitations History of Present Illness Date Seen by Provider: Mar 21, 2019 Time Seen by Provider: 21:30 Initial Comments To ER with right upper eyelid redness and swelling and itching sudden onset about 1 hour prior to arrival. She suspects she may have sustained an insect bite to this area. No pain Timing/Duration: abrupt Severity: mild Location: eye (R) Prearrival Treatment: no prearrival treatment Associated Symptoms: denies symptoms Allergies and Home Medications Allergies Coded Allergies: Penicillins (Unverified Allergy, Unknown, 05/12/15) Sulfa (Sulfonamide Antibiotics) (Verified Allergy, Unknown, 11/02/18) Home Medications Cetirizine HCl 10 Mg Capsule, 10 MG PO DAILY, (Reported) Hydrocortisone Acetate 30 Mg Supp.rect, 30 MG RC TID Prescribed by: NAKUL ZEPEDA on 03/19/192120 Linaclotide 145 Mcg Capsule, 145 MCG PO DAILY, (Reported) Montelukast Sodium 10 Mg Tablet, 10 MG PO DAILY, (Reported) Pantoprazole Sodium 40 Mg Tablet.dr, 40 MG PO DAILY, (Reported) Patient Home Medication List Home Medication List Reviewed: Yes Review of Systems Review of Systems Constitutional: see HPI Eyes: See HPI; Denies Blindness, Denies Blurred Vision, Denies Drainage, Denies Decreased Acuity Ears: No Symptoms Reported Nose: no symptoms reported Mouth: no symptoms reported Throat: no symptoms reported Respiratory: no symptoms reported Cardiovascular: no symptoms reported Musculoskeletal: no symptoms reported Past Ubdwclg-Glhdvg-Txtpgq Hx Patient Social History Type Used: Cigarettes 2nd Hand Smoke Exposure: No Recent Foreign Travel: No Contact w/Someone Who Travel: No Recent Hopitalizations: No Immunizations Up To Date Tetanus Booster (TDap): Less than 5yrs Seasonal Allergies Seasonal Allergies: Yes Past Medical History Surgeries: Yes (TUBES IN EARS, wisdom teeth) Respiratory: Yes Asthma Cardiac: No Neurological: No Reproductive Disorders: No Sexually Transmitted Disease: No Genitourinary: No Gastrointestinal: Yes Gastroesophageal Reflux, Chronic Constipation, Irritable Bowel Musculoskeletal: No Fractures Endocrine: No HEENT: No Cancer: No Psychosocial: No Integumentary: No Blood Disorders: No Family Medical History No Pertinent Family Hx Physical Exam Height, Weight, BMI Height: 4'11.00" Weight: 85lbs. 0.0oz. 38.477409im; 16.2 BMI Method:Stated General Appearance: WD/WN, no apparent distress Eyes: right eye other (minimal swelling and erythema to the right upper eyelid. Extraocular muscles are intact and there is no pain with movement of the eye. There is no limitation to the doll of gaze. No chemosis. No lower eyelid involvement. Small more erythematous punctum about 1-2 mm at the medial aspect of the upper eyelid which could be the insect bite she is talking about.); bilateral eye normal inspection, bilateral eye PERRL, bilateral eye EOMI Ears: bilateral ear auricle normal, bilateral ear canal normal, bilateral ear TM normal Mouth/Throat: normal mouth inspection, pharynx normal Respiratory: no respiratory distress, no accessory muscle use Neurologic/Psychiatric: alert, normal mood/affect, oriented x 3 Skin: normal color, warm/dry Progress/Results/Core Measures Results/Orders My Orders Orders - LEO MOSER APRN Diphenhydramine Tablet (Benadryl Tablet) (03/21/19 21:30) Prednisone Tablet (Deltasone Tablet) (03/21/19 21:30) Departure Impression Primary Impression: Swelling of right upper eyelid Disposition: HOME, SELF-CARE Condition: Stable Departure-Patient Inst. Decision time for Depature: 21:32 Referrals: [facility] [place] Primary Care Physician MARILEE MEJIA APRN (Family) Primary Care Physician Patient Instructions: NO INSTRUCTIONS GIVEN Add. Discharge Instructions: 1. Go home and put an ice pack on this for 10 minutes every 1-2 hours with a cloth between the ice pack and your eyelid. Return to ER for any increasing redness pain or other concerns. LEO MOSER APRN Mar 21, 2019 21:33
[2019-03-21 21:40] VITALS: BP 122/80
== END 2019-03-21 21:41 | disposition home or self-care (01) ==
LOC: EDUNIT# 21:20 → ER 21:21
DX: H02.89 Other specified disorders of eyelid (principal); J45.909 Unspecified asthma, uncomplicated; K21.9 Gastro-esophageal reflux disease without esophagitis; K58.9 Irritable bowel syndrome, unspecified; Z88.0 Allergy status to penicillin; Z88.2 Allergy status to sulfonamides
CPT/HCPCS: 99283

== ENCOUNTER 2019-03-28 08:37 | Outpatient (RCR) | payer OTHER ==
[~2019-03-28 08:37] MED LIST changes: -CLAR250T PO; +[UNRECOGNIZED DRUG - CODE] PO
[2019-04-18] MEDS ORDERED: OMEP20CA13 PO (08:48)
[2019-04-18] MEDS ORDERED: FLUT9.9S16 NS (08:48)
[2019-04-18] MEDS ORDERED: SUCR1TAB36 PO (08:48)
[2019-04-18] MEDS ORDERED: FAMO10TA43 PO (08:48)
[2019-04-18] MEDS ORDERED: RT-ALBUINH IH (08:50)
== END 2019-06-26 | disposition home or self-care (01) ==
LOC: LAB 08:37
PROVIDERS: ATTEND Surgery
DX: A04.8 Other specified bacterial intestinal infections (principal)
CPT/HCPCS: 36415; 87338

== ENCOUNTER 2019-04-18 10:15 | Outpatient (CLI) | payer OTHER ==
[~2019-04-18] VITALS: Ht 149.9 cm; Wt 38.6 kg
[~2019-04-18 10:15] MED LIST changes: +FAMO10TA43 PO; +FLUT9.9S16 NS; +OMEP20CA13 PO; +SUCR1TAB36 PO
== END 2019-04-18 11:03 | disposition home or self-care (01) ==
LOC: PREOP 10:15
PROVIDERS: ATTEND Surgery
DX: Z01.818 Encounter for other preprocedural examination (principal)

== ENCOUNTER 2019-04-25 10:28 | Day surgery (SDC) | payer OTHER ==
[~2019-04-25] VITALS: Ht 149.9 cm; Wt 38.6 kg
[2019-04-25] VITALS (11 sets, daily range): BP systolic 95–121; BP diastolic 55–85
[2019-04-25] MEDS ORDERED: CLINDAMYCIN 600 MG/50 ML IVPB 50 ML IV ONE ×2 (10:58→12:45)
--- NOTE | 2019-04-25 11:03 | Progress Note-Pre Operative ---
Pre-Operative Progress Note H&P Reviewed The H&P was reviewed, patient examined and no changes noted. Time Seen by Provider: 10:58 Date H&P Reviewed: Apr 25, 2019 Time H&P Reviewed: 10:59 Pre-Operative Diagnosis: tight anal sphincter MESHA GOETZ DO Apr 25, 2019 11:03
[2019-04-25] MEDS ORDERED: BUP/EPI 0.5% 1:200,000 (MARCAINE) 10ML VIAL IJ ONE (11:07)
[2019-04-25] MEDS: LACTATED RINGERS 1,000 ML IV PRN ×2 (11:10→14:15)
[2019-04-25] MEDS ORDERED: fentaNYL INJECTION 100 MCG/2 ML AMP ONE (12:35)
[2019-04-25] MEDS ORDERED: MIDAZOLAM 2 MG/2 ML (VERSED) VIAL ONE (12:35)
[2019-04-25] MEDS ORDERED: ONDANSETRON 4 MG/2 ML (SDV) Z0FRAN ONE (13:08)
[2019-04-25] MEDS ORDERED: DEXAMETHASONE 10 MG/ML (DECADRON) 1 ML VIAL ONE (13:08)
[2019-04-25] MEDS ORDERED: LIDOCAINE PF 2% 5 ML (XYLOCAINE) VIAL ONE (13:08)
[2019-04-25] MEDS ORDERED: SEVOFLURANE (ULTANE) 15 ML INHAL SOLN ONE (13:09)
[2019-04-25] MEDS ORDERED: proPOfol 200 MG/20 ML (DIPRIVAN) VIAL IV ONE (13:09)
--- NOTE | 2019-04-25 13:18 | Progress Note-Post Operative ---
Post-Operative Progess Note Surgeon (s)/Repairer (s) Surgeon MESHA GOETZ DO Repairer: none Pre-Operative Diagnosis tight anal sphincter Post-Operative Diagnosis same plus anal fissure Procedure & Operative Findings Date of Procedure 04/25/19 Procedure Performed/Findings PLIS Anesthesia Type LMA Estimated Blood Loss Estimated blood loss (mL): scant Specimens/Packing Specimens Removed none MESHA GOETZ DO Apr 25, 2019 13:18
--- NOTE | 2019-04-25 13:21 | Discharge Inst-Surgical ---
Discharge Inst-Surgical Depart Medication/Instructions New, Converted or Re-Newed RX: Other (No Rx needed) Patient Instructions Follow up Appt: Make appointment for 1 week. [phone] Instructions: May shower in 24 hours, ok for tub bath or soaking. Use incentive spirometer at home as directed. No Smoking Skin/Wound Care: Keep area clean and dry. Symptoms to Report: Appetite Changes, Extremity Discoloration, Numbness/Tingling, Swelling Increased, Bleeding Excessive, Eyesight Changes, Pain Increased, Urine Color Change, Constipation(Persistent), Fever over 101 degree F, Pain/Pressure in chest, Urinating Difficulty, Cough Up/Vomit Blood, Heart Beat Irreg/Pounding, Pain/Pressure in jaw, Cramps in feet or legs, Lightheadedness, Pain/Pressure in shoulder, Diarrhea(Persistent), Memory Changes Suddenly, Questions/Concerns, Weight gain consecutive days, Dizziness/Fainting, Nausea/Vomiting, Shortness of Breath, Weight gain over 2 pounds If questions or concerns contact your physician Or seek help at emergency department. Activity Activity as Tolerated: Yes Activity Instructions: Avoid Stress to Incision Driving Instructions: You May Drive Diet Discharge Diet: No Restrictions (increase fluids) If Any Problems/Questions/Issu: Contact Your Physician, Go to Emergency Room Skin/Wound Care Infection Signs and Symptoms: Increased Redness, Foul Odor of Wound, Increased Drainage, Skin Itchy or Has a Rash, Increased Swelling, Temperature Above 101 F MESHA GOETZ DO Apr 25, 2019 13:21
[2019-04-25] MEDS ORDERED: ONDANSETRON 4 MG/2 ML (SDV) Z0FRAN IVP PRN (13:45)
[2019-04-25] MEDS ORDERED: morphine INJ 10 MG/ML 1ML (SYR OR VIAL) IVP ONE (13:45)
[2019-04-25] MEDS ORDERED: MEPERIDINE (DEMEROL) INJ 50 MG/ML IVP ONE (13:45)
--- NOTE | 2019-04-25 14:22 | Anesthesia-General Post-Op ---
General Patient Condition Mental Status/LOC: Same as Preop Cardiovascular: Satisfactory Nausea/Vomiting: Absent Respiratory: Satisfactory Pain: Controlled Complications: Absent Post Op Complications Complications None Follow Up Care/Instructions Patient Instructions None needed. Anesthesia/Patient Condition Patient Condition Patient is doing well, no complaints, stable vital signs, no apparent adverse anesthesia problems. No complications reported per nursing. SOPHIE MARTIN CRNA Apr 25, 2019 14:22
--- NOTE | 2019-04-25 18:49 | OPERATIVE REPORT ---
DATE OF SERVICE: PREOPERATIVE DIAGNOSES: Tight anal sphincter and anal fissure. POSTOPERATIVE DIAGNOSES: Tight anal sphincter and anal fissure. PROCEDURE: Partial lateral internal sphincterotomy. SURGEON: Galdino Villafuerte DO HY[employer]OGEN PLANT OPERATOR: None. ANESTHESIA: General endotracheal tube. SPECIMENS: None. BLOOD LOSS: Scant. FLUIDS: Per anesthesia. POSTOPERATIVE CONDITION: Stable. INDICATION FOR PROCEDURE: The patient is a 23-year-old female who has been having rectal pain, bleeding and diagnosed with a tight anal sphincter and anal fissure. FINDINGS: The patient had an anal fissure at the 12 o'clock position when the patient was in lithotomy, anal sphincter actually pretty much completely relaxed when she was asleep. PROCEDURE NOTE: After informed consent was obtained, the patient was brought to the operating room, placed on the table in the lithotomy position. She was sterilely prepped and draped in normal fashion. Noted an anal fissure at the 12 o'clock position, actually anal sphincter had completely opened up and was very lax actually when she was in OR, but this is very tight when she is at home, because at home she has trouble with bowel movements and physical examination in the office was very tight anal sphincter, did ischial tuberosity blocks on either side and then at the 5 o'clock position, infiltrated the skin with local, then made a small incision with #15 blade, carried down through the skin into subcutaneous tissue and then using a hemostat, able to get down and around the anal sphincter muscle and then cut about third of the muscle to relax it, dropped this back in. Used Bovie electrocautery to stop some of the bleeding on the skin edges and at this point area was then cleaned and dried, dressing placed. Sponge, instrument and needle count correct at the end of the case. The patient tolerated the procedure well. Job ID: [id number] DocumentID: [id number] Dictated Date: 04/25/2019 13:17:56 Television Cabinet Finisher Date: 04/25/2019 18:49:16 Dictated By: GALDINO VILLAFUERTE DO [facility]Marie
== END 2019-04-25 15:50 | disposition home or self-care (01) ==
LOC: SDC 10:28
PROVIDERS: ATTEND Surgery
DX: K60.2 Anal fissure, unspecified (principal); K62.89 Other specified diseases of anus and rectum; K29.50 Unspecified chronic gastritis without bleeding; K58.9 Irritable bowel syndrome, unspecified; K21.9 Gastro-esophageal reflux disease without esophagitis; K59.00 Constipation, unspecified; J45.909 Unspecified asthma, uncomplicated; J31.0 Chronic rhinitis; B96.81 Helicobacter pylori [H. pylori] as the cause of diseases classified elsewhere; Z88.0 Allergy status to penicillin; Z88.2 Allergy status to sulfonamides; Z86.59 Personal history of other mental and behavioral disorders; Z82.49 Family history of ischemic heart disease and other diseases of the circulatory system; Z83.3 Family history of diabetes mellitus; Z82.3 Family history of stroke
CPT/HCPCS: 84703; 87081

== ENCOUNTER 2019-06-18 19:33 | Emergency (ER) | payer MEDICAID, OTHER ==
[~2019-06-18] VITALS: Ht 149.8 cm; Wt 47.4 kg
[2019-06-18 20:07] LABS: BILIRUBIN,URINE NEGATIVE (NEGATIVE); CLARITY,URINE CLEAR; COLOR,URINE YELLOW; GLUCOSE, URINE (UA) NEGATIVE (NEGATIVE); KETONES,URINE 4+ (NEGATIVE); LEUKOCYTE ESTERASE ,URINE 1+ (NEGATIVE); NITRITE,URINE NEGATIVE (NEGATIVE); PH,URINE 7 (5-9); PROTEIN,URINE 1+ (NEGATIVE); UROBILINOGEN,URINE NORMAL (NORMAL)
[2019-06-18 20:20] LABS: BACTERIA,URINE TRACE /HPF; WBC,URINE RARE /HPF
[2019-06-18] MEDS ORDERED: LACTATED RINGERS 1,000 ML IV ONE (20:26)
--- NOTE | 2019-06-18 20:42 | ED General ---
General Chief Complaint: General Problems/Pain Stated Complaint: 10 WEEKS PREG,FEVER Source of Information: Patient (TAYLER LOPEZ,MED STUDENT) History of Present Illness Date Seen by Provider: Jun 18, 2019 Time Seen by Provider: 20:00 Initial Comments Patient is a 23y/o, 10.5wks female that presents to the ED with cc of pain with urination. Patient says that symptoms stated 1wk ago waited to come in because she didn't have a fever until this evening. She has a history of UTIs and feels that she has a UTI because of frequency, dysuria, and abdominal pain; pain is rated as 10/10, patients demeanor does not match pain rating. She has an OB appointment with Dr. Bunn tomorrow. Patient also complains of ear pain but was seen on 2 days ago for ear pain by her PCP and was not given any antibiotics. Patient ROS admits to lt headedness, dizziness, weakness, tiredness, headache, throat pain, constipation, denies SOB, cough, chest pain Timing/Duration: 1 Week (TAYLER LOPEZ,MED STUDENT) Allergies and Home Medications Allergies Coded Allergies: Penicillins (Unverified Allergy, Mild, HIVES, 04/18/19) Sulfa (Sulfonamide Antibiotics) (Verified Allergy, Mild, HIVES, 04/18/19) Home Medications Albuterol Sulfate 1 Puff Puff, 2 PUFF IH Q4H PRN for SHORTNESS OF BREATH, (Reported) 1 PUFF = 90 MCG Cetirizine HCl 10 Mg Capsule, 10 MG PO DAILY, (Reported) Famotidine 10 Mg Tablet, 10 MG PO BID, (Reported) Fluticasone Furoate 5.9 Ml Bartlett.susp, 5.9 ML NS DAILY, (Reported) Montelukast Sodium 10 Mg Tablet, 10 MG PO DAILY, (Reported) Omeprazole 20 Mg Capsule.dr, 20 MG PO DAILY, (Reported) Sucralfate 1 Gm Tablet, 1 GM PO QID, (Reported) Patient Home Medication List Home Medication List Reviewed: Yes (AUSTIN BAÑUELOS MD) Review of Systems Review of Systems Constitutional: see HPI EENTM: see HPI Respiratory: see HPI Cardiovascular: see HPI Gastrointestinal: see HPI Genitourinary: see HPI : Yes LMP: Apr 05, 2019 Musculoskeletal: no symptoms reported Skin: no symptoms reported Psychiatric/Neurological: No Symptoms Reported Hematologic/Lymphatic: No Symptoms Reported Immunological/Allergic: no symptoms reported (TAYLER LOPEZ MED STUDENT) Past Uuikjug-Hxvjds-Vzouft Hx Patient Social History Alcohol Use: Denies Use Recreational Drug Use: No Smoking Status: Former Smoker Type Used: Cigarettes 2nd Hand Smoke Exposure: No Recent Foreign Travel: No Contact w/Someone Who Travel: No Recent Hopitalizations: No Physical Abuse: No Sexual Abuse: No (TAYLER LOPEZ MED STUDENT) Immunizations Up To Date Tetanus Booster (TDap): Less than 5yrs (TAYLER LOPEZ MED STUDENT) Seasonal Allergies Seasonal Allergies: Yes (TAYLER LOPEZ MED STUDENT) Past Medical History Surgeries: Yes (TUBES IN EARS, wisdom teeth) Respiratory: Yes Asthma Cardiac: No Neurological: No Reproductive Disorders: No Sexually Transmitted Disease: No HIV/AIDS: No Genitourinary: No Gastrointestinal: Yes Gastroesophageal Reflux, Chronic Constipation, Irritable Bowel Musculoskeletal: No Fractures Endocrine: No HEENT: No Loss of Vision: Denies Hearing Impairment: Denies Cancer: No Psychosocial: No Integumentary: No Blood Disorders: No Adverse Reaction/Blood Tranf: No (N/A) (TAYLER LOPEZ MED STUDENT) Family Medical History No Pertinent Family Hx (TAYLER LOPEZ MED STUDENT) Physical Exam Vital Signs Vital Signs - First Documented 06/18/19 19:55 Temp 38.6 Pulse 108 Resp 19 B/P (MAP) 120/75 (90) Pulse Ox 100 O2 Delivery Room Air (AUSTIN BAÑUELOS MD) Vital Signs Capillary Refill : (TAYLER LOPEZ MED STUDENT) Height, Weight, BMI Height: 4'11.00" Weight: 85lbs. 0.0oz. 38.850075qa; 17.2 BMI Method:Stated General Appearance: No Apparent Distress, WD/WN, Anxious Eyes: Bilateral Eye Normal Inspection, Bilateral Eye PERRL, Bilateral Eye EOMI HEENT: PERRL/EOMI, Pharynx Normal, TM Abnormal (L) (scaring of TM), TM Abnormal (R) (scaring of TM ) Respiratory: Chest Non Tender, Lungs Clear, Normal Breath Sounds, No Accessory Muscle Use, No Respiratory Distress Cardiovascular: No Edema, No Gallop, No JVD, No Murmur, Normal Peripheral Pulses, Tachycardia Gastrointestinal: Normal Bowel Sounds, Soft, Tenderness (suprapubic pain ) Neurologic/Psychiatric: Alert, Oriented x3, Normal Mood/Affect (TAYLER LOPEZ,MED STUDENT) Progress/Results/Core Measures Suspected Sepsis SIRS Temperature: Pulse: 108 Respiratory Rate: 19 Laboratory Tests 06/18/19 20:37: White Blood Count 11.2H Blood Pressure 120 /75 Mean: 90 Laboratory Tests 06/18/19 20:37: Creatinine 0.61, Platelet Count 196, Total Bilirubin 0.4 (TAYLER LOPEZ,MED STUDENT) Results/Orders Lab Results Laboratory Tests Test 06/18/19 19:55 06/18/19 20:37 Range/Units Urine Color YELLOW Urine Clarity CLEAR Urine pH 7 5-9 Urine Specific Hewitt 1.010 L 1.016-1.022 Urine Protein 1+ H NEGATIVE Urine Glucose (UA) NEGATIVE NEGATIVE Urine Ketones 4+ H NEGATIVE Urine Nitrite NEGATIVE NEGATIVE Urine Bilirubin NEGATIVE NEGATIVE Urine Urobilinogen NORMAL NORMAL MG/DL Urine Leukocyte Esterase 1+ H NEGATIVE Urine RBC (Auto) 1+ H NEGATIVE Urine RBC NONE /HPF Urine WBC RARE /HPF Urine Squamous Epithelial Cells 5-10 /HPF Urine Crystals NONE /LPF Urine Bacteria TRACE /HPF Urine Casts NONE /LPF Urine Mucus NEGATIVE /LPF Urine Culture Indicated NO White Blood Count 11.2 H 4.3-11.0 10^3/uL Red Blood Count 4.47 4.35-5.85 10^6/uL Hemoglobin 13.6 11.5-16.0 G/DL Hematocrit 39 35-52 % Mean Corpuscular Volume 87 80-99 FL Mean Corpuscular Hemoglobin 30 25-34 PG Mean Corpuscular Hemoglobin Concent 35 32-36 G/DL Red Cell Distribution Width 13.2 10.0-14.5 % Platelet Count 196 130-400 10^3/uL Mean Platelet Volume 10.0 7.4-10.4 FL Neutrophils (%) (Auto) 88 H 42-75 % Lymphocytes (%) (Auto) 6 L 12-44 % Monocytes (%) (Auto) 6 0-12 % Eosinophils (%) (Auto) 0 0-10 % Basophils (%) (Auto) 0 0-10 % Neutrophils # (Auto) 9.8 H 1.8-7.8 X 10^3 Lymphocytes # (Auto) 0.6 L 1.0-4.0 X 10^3 Monocytes # (Auto) 0.7 0.0-1.0 X 10^3 Eosinophils # (Auto) 0.0 0.0-0.3 10^3/uL Basophils # (Auto) 0.0 0.0-0.1 10^3/uL Neutrophils % (Manual) 84 % Lymphocytes % (Manual) 5 % Monocytes % (Manual) 11 % Blood Morphology Comment NORMAL Sodium Level 133 L 135-145 MMOL/L Potassium Level 4.1 3.6-5.0 MMOL/L Chloride Level 101 98-107 MMOL/L Carbon Dioxide Level 20 L 21-32 MMOL/L Anion Gap 12 5-14 MMOL/L Blood Urea Nitrogen 8 7-18 MG/DL Creatinine 0.61 0.60-1.30 MG/DL Estimat Glomerular Filtration Rate > 60 BUN/Creatinine Ratio 13 Glucose Level 91 70-105 MG/DL Calcium Level 9.4 8.5-10.1 MG/DL Corrected Calcium 9.2 8.5-10.1 MG/DL Total Bilirubin 0.4 0.1-1.0 MG/DL Aspartate Amino Transf (AST/SGOT) 32 5-34 U/L Alanine Aminotransferase (ALT/SGPT) 17 0-55 U/L Alkaline Phosphatase 46 40-136 U/L C-Reactive Protein High Sensitivity 2.12 H 0.00-0.50 MG/DL Total Protein 7.7 6.4-8.2 GM/DL Albumin 4.3 3.2-4.5 GM/DL (AUSTIN BAÑUELOS MD) Micro Results Microbiology 06/18/19 Influenza Types A,B Antigen (JOSE JUAN) - Final, Complete (AUSTIN BAÑUELOS MD) My Orders Orders - AUSTIN BAÑUELOS MD Ua Culture If Indicated (06/18/19 19:40) Influenza A And B Antigens (06/18/19 19:59) Ed Iv/Invasive Line Start (06/18/19 20:26) Lactated Ringers (Lr 1000 Ml Iv Solution (06/18/19 20:26) Cbc With Automated Diff (06/18/19 20:26) Comprehensive Metabolic Panel (06/18/19 20:26) Hs C Reactive Protein (06/18/19 20:26) Manual Differential (06/18/19 20:37) Acetaminophen Tablet/Caplet (Tylenol T (06/18/19 21:30) (AUSTIN BAÑUELOS MD) Medications Given in ED Current Medications Medications Dose Ordered Sig/Mikey Route Start Time Stop Time Status Last Admin Dose Admin Acetaminophen 650 mg ONCE ONCE PO 06/18/19 21:30 06/18/19 21:31 DC 06/18/19 21:35 650 MG Lactated Ringer's 1,000 ml @ 0 mls/hr Q0M ONCE IV 06/18/19 20:26 06/18/19 20:27 DC 06/18/19 20:43 1,000 MLS/HR (AUSTIN BAÑUELOS MD) Vital Signs/I&O 06/18/19 06/18/19 19:55 21:45 Temp 38.6 37.7 Pulse 108 105 Resp 19 18 B/P (MAP) 120/75 (90) 110/71 Pulse Ox 100 100 O2 Delivery Room Air Room Air (AUSTIN BAÑUELOS MD) Vital Signs/I&O Capillary Refill : Less Than 3 Seconds (TAYLER LOPEZ,MED STUDENT) Departure Impression Primary Impression: Febrile illness Additional Impressions: Dysuria Pelvic pain Hypovolemia Constipation Qualified Codes: K59.00 - Constipation, unspecified Disposition: 01 HOME, SELF-CARE Condition: Improved Departure-Patient Inst. Decision time for Depature: 21:28 (AUSTIN BAÑUELOS MD) [place] [facility] [place] [facility] [place] Primary Care Physician MARILEE MEJIA APRN (Family) Primary Care Physician Patient Instructions: Acute Pelvic Pain Add. Discharge Instructions: Keep your appointment with Dr. Bunn tomorrow. You may take Tylenol (acetaminophen) up to 650 mg every 6 hours as needed for pain or fever. For constipation you may take MiraLAX (polyethylene glycol) once or twice daily. Fill the cap to the line and mixed with 8-12 ounces of a clear liquid. Return to care if you have worsening symptoms. Drink plenty of clear liquids. All discharge instructions reviewed with patient and/or family. Voiced understanding. 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 I agree with MS 3 history, exam, assessment, and documentation with the following additions and corrections. This patient presents to the emergency room with complaint of fever, lower abdominal discomfort, dysuria, clear vaginal discharge, and some sore throat. Symptoms have been present for about a week. Exam is unremarkable except some mild suprapubic tenderness. heart tones were 190 by Doppler. UA was unremarkable for infection. Influenza screen was negative. UA did demonstrate 4+ ketones suggesting hypovolemia. Patient does state she did not drink as well today because of how she was feeling. Blood work and IV fluids were therefore ordered. Exam: Gen.: Alert, oriented, no acute distress, does not appear in pain HEENT: normocephalic and atraumatic, mucous membranes moist, no erythema or edema of the oropharynx, tympanic membranes scarred without erythema or effusion Neck: Normal to inspection Lungs: Clear to auscultation bilaterally with normal effort Heart: Regular rate and rhythm without murmur Abdomen: Soft, mildly tender in the suprapubic region, normal bowel sounds, heart tones 190 by Doppler Extremities: Normal to inspection Skin: Warm and dry without rashes Neuropsych: Alert, oriented, no focal deficits, mood and affect normal 21:29 - Patient's labs were reviewed and were relatively unremarkable. I called and discussed the case with Dr. Bunn. She is happy to do a pelvic exam tomorrow in the clinic and does not think it is necessary to emergently perform a pelvic exam tonight. Patient's symptoms and workup would suggest viral illness. Patient also is thinking her abdominal discomfort may be related to constipation. She does have MiraLAX at home and will try that. Patient is being given some Tylenol for her fever and discomfort while she is awaiting c ompletion of her IV fluids. Patient was concerned that she may have some bacterial vaginosis as present symptoms are similar to symptoms she has had in the past. This can be addressed with Dr. Bunn at her visit tomorrow. Patient prefers to have Dr. Bunn perform her pelvic exam. (AUSTIN BAÑUELOS MD) Copy Copies To 1: KAYODE BUNN DO Copies To 2: ADRIENNE COSTELLO MICAH,MED STUDENT Jun 18, 2019 20:42 AUSTIN BAÑUELOS MD Jun 18, 2019 21:06
[2019-06-18 20:56] LABS: BASOPHILS % (AUTO) 0 % (0-10); EOSINOPHILS % (AUTO) 0 % (0-10); HEMATOCRIT 39 % (35-52); HEMOGLOBIN 13.6 G/DL (11.5-16.0); LYMPHOCYTES # (AUTO) 0.6 X 10^3 (1.0-4.0); LYMPHOCYTES % (AUTO) 6 % (12-44); MEAN CORPUSCULAR HEMOGLOBIN 30 PG (25-34); MEAN CORPUSCULAR HGB CONC 35 G/DL (32-36); MEAN CORPUSCULAR VOLUME 87 FL (80-99); MONOCYTES # (AUTO) 0.7 X 10^3 (0.0-1.0); MONOCYTES % (AUTO) 6 % (0-12); NEUTROPHILS # (AUTO) 9.8 X 10^3 (1.8-7.8); NEUTROPHILS % (AUTO) 88 % (42-75); PLATELET COUNT 196 10^3/uL (130-400); RED CELL DISTRIBUTION WIDTH 13.2 % (10.0-14.5); WHITE BLOOD COUNT 11.2 10^3/uL (4.3-11.0)
[2019-06-18 21:14] LABS: ALANINE AMINOTRANSFERASE 17 U/L (0-55); ALBUMIN 4.3 GM/DL (3.2-4.5); ALKALINE PHOSPHATASE 46 U/L (40-136); BILIRUBIN,TOTAL 0.4 MG/DL (0.1-1.0); BUN/CREATININE RATIO 13; CALCIUM 9.4 MG/DL (8.5-10.1); CARBON DIOXIDE 20 MMOL/L (21-32); CHLORIDE 101 MMOL/L (98-107); CREATININE SERUM 0.61 MG/DL (0.60-1.30); GFR ESTIMATED > 60; GLUCOSE 91 MG/DL (70-105); POTASSIUM 4.1 MMOL/L (3.6-5.0); SODIUM 133 MMOL/L (135-145); TOTAL PROTEIN 7.7 GM/DL (6.4-8.2)
[2019-06-18 21:27] LABS: LYMPHOCYTES % (MANUAL) 5 %; MONOCYTES % (MANUAL) 11 %; NEUTROPHILS % (MANUAL) 84 %; RBC MORPH NORMAL
[2019-06-18] MEDS ORDERED: ACETAMINOPHEN 325 MG TABLET PO ONE (21:30)
--- NOTE | 2019-06-18 21:38 | NUR ---
Pt's temperature 37.7 at this time.
[2019-06-18 21:45] VITALS: BP 110/71
== END 2019-06-18 21:45 | disposition home or self-care (01) ==
LOC: EDUNIT# 19:33 → ER 19:34
DX: O26.891 Other specified pregnancy related conditions, first trimester (principal); R50.9 Fever, unspecified; R30.0 Dysuria; R10.2 Pelvic and perineal pain; O99.281 Endocrine, nutritional and metabolic diseases complicating pregnancy, first trimester; E86.1 Hypovolemia; O99.611 Diseases of the digestive system complicating pregnancy, first trimester; K59.00 Constipation, unspecified; K21.9 Gastro-esophageal reflux disease without esophagitis; K58.9 Irritable bowel syndrome, unspecified; O99.511 Diseases of the respiratory system complicating pregnancy, first trimester; J45.909 Unspecified asthma, uncomplicated; Z3A.10 10 weeks gestation of pregnancy; Z88.0 Allergy status to penicillin; Z88.2 Allergy status to sulfonamides; Z79.51 Long term (current) use of inhaled steroids; Z87.891 Personal history of nicotine dependence
CPT/HCPCS: 36415; 80053; 81000; 84703; 85007; 85025; 85027; 86141; 87804; 96360

== ENCOUNTER 2019-08-16 14:52 | Emergency (ER) | payer MEDICAID ==
[~2019-08-16] VITALS: Ht 149.8 cm; Wt 51.0 kg
[~2019-08-16 14:52] MED LIST changes: +OMEP-280 PO; -OMEP20CA13 PO
--- NOTE | 2019-08-16 15:16 | ED Cough/URI ---
General Chief Complaint: Cough/Cold/Flu Symptoms Stated Complaint: FEVER / COUGH / CONGESTION - 19 WKS PREG Nursing Triage Note: 19 WEEKS GESTATION. COUGH X2 WEEKS, FEVER STARTING X3 DAYS AGO. TYLENOL TAKEN AT 0900. Sepsis Screen: Possible Sepsis Risk Exam Limitations: no limitations History of Present Illness Date Seen by Provider: Aug 16, 2019 Time Seen by Provider: 15:14 Initial Comments This 24-year-old female presents with 2 weeks of cough, congestion and fever. The patient is 19 weeks . She is employed Tylenol for her discomfort. She has had no associated abdominal pain, vaginal bleeding, or cramping. Allergies and Home Medications Allergies Coded Allergies: Penicillins (Unverified Allergy, Mild, HIVES, 04/18/19) Sulfa (Sulfonamide Antibiotics) (Verified Allergy, Mild, HIVES, 04/18/19) Patient Home Medication List Home Medication List Reviewed: Yes Review of Systems Review of Systems Constitutional: No chills; fever EENTM: No ear pain, No mouth pain, No throat pain Respiratory: see HPI, cough; No short of breath Cardiovascular: No chest pain, No palpitations Gastrointestinal: No abdominal pain, No nausea, No vomiting Genitourinary: No dysuria, No frequency : Yes Musculoskeletal: No back pain Skin: No change in color, No rash Psychiatric/Neurological: No Symptoms Reported Hematologic/Lymphatic: No Symptoms Reported Past Xawxlvc-Qcgzsj-Pgvfvn Hx Past Med/Social Hx: Reviewed Nursing Past Med/Soc Hx Patient Social History Alcohol Use: Denies Use Recreational Drug Use: No Smoking Status: Never a Smoker Type Used: Cigarettes 2nd Hand Smoke Exposure: No Recent Foreign Travel: No Contact w/Someone Who Travel: No Recent Infectious Disease Expo: No Recent Hopitalizations: No Immunizations Up To Date Tetanus Booster (TDap): Less than 5yrs Seasonal Allergies Seasonal Allergies: Yes Past Medical History Surgeries: Yes (TUBES IN EARS, wisdom teeth) Respiratory: Yes Asthma Cardiac: No Neurological: No Reproductive Disorders: No Sexually Transmitted Disease: No HIV/AIDS: No Genitourinary: No Gastrointestinal: Yes Gastroesophageal Reflux, Chronic Constipation, Irritable Bowel Musculoskeletal: No Fractures Endocrine: No HEENT: No Loss of Vision: Denies Hearing Impairment: Denies Cancer: No Psychosocial: No Integumentary: No Blood Disorders: No Adverse Reaction/Blood Tranf: No (N/A) Family Medical History No Pertinent Family Hx Physical Exam Vital Signs - First Documented 08/16/19 08/16/19 15:01 15:46 Temp 36.9 Pulse 103 Resp 16 B/P (MAP) 132/91 (105) Pulse Ox 100 O2 Delivery Room Air Capillary Refill : Less Than 3 Seconds Height: 4'11.00" Weight: 85lbs. 0.0oz. 38.519961pj; 22.00 BMI Method:Stated General Appearance: WD/WN, no apparent distress Eyes: Bilateral Eye Normal Inspection HEENT: normal ENT inspection Neck: full range of motion, supple Respiratory: lungs clear, normal breath sounds, no respiratory distress Cardiovascular: regular rate, rhythm, no murmur Gastrointestinal: normal bowel sounds, non tender Extremities: normal inspection Neurologic/Psychiatric: no motor/sensory deficits, alert, normal mood/affect Skin: normal color, warm/dry Progress/Results/Core Measures Suspected Sepsis Recent Fever Within 48 Hours: Yes Infection Criteria Present: Suspected New Infection New/Unexplained Altered Menta: No Sepsis Screen: Possible Sepsis Risk SIRS Temperature: Pulse: 103 Respiratory Rate: 16 Laboratory Tests 08/16/19 15:26: White Blood Count 12.0H Blood Pressure 132 /91 Mean: 105 Laboratory Tests 08/16/19 15:26: Platelet Count 241 Results/Orders Lab Results Laboratory Tests Test 08/16/19 15:26 Range/Units White Blood Count 12.0 H 4.3-11.0 10^3/uL Red Blood Count 3.83 L 4.35-5.85 10^6/uL Hemoglobin 11.8 11.5-16.0 G/DL Hematocrit 35 35-52 % Mean Corpuscular Volume 90 80-99 FL Mean Corpuscular Hemoglobin 31 25-34 PG Mean Corpuscular Hemoglobin Concent 34 32-36 G/DL Red Cell Distribution Width 13.6 10.0-14.5 % Platelet Count 241 130-400 10^3/uL Mean Platelet Volume 9.9 7.4-10.4 FL Neutrophils (%) (Auto) 78 H 42-75 % Lymphocytes (%) (Auto) 14 12-44 % Monocytes (%) (Auto) 7 0-12 % Eosinophils (%) (Auto) 0 0-10 % Basophils (%) (Auto) 0 0-10 % Neutrophils # (Auto) 9.4 H 1.8-7.8 X 10^3 Lymphocytes # (Auto) 1.7 1.0-4.0 X 10^3 Monocytes # (Auto) 0.9 0.0-1.0 X 10^3 Eosinophils # (Auto) 0.1 0.0-0.3 10^3/uL Basophils # (Auto) 0.0 0.0-0.1 10^3/uL Group A Streptococcus Screen NEGATIVE NEGATIVE My Orders Orders - VANESA AMBROCIO MD Cbc With Automated Diff (08/16/19 15:11) Rapid Strep A Screen (08/16/19 15:11) Albuterol Pre-Mix Nebs (Rt) (Proventil (08/16/19 21:00) Svn Small Volume Nebulizer (08/16/19 15:12) Albuterol/Ipra Inhalation Soln (Duoneb I (08/16/19 15:40) Albuterol Pre-Mix Nebs (Rt) (Proventil (08/16/19 15:42) Vital Signs/I&O 08/16/19 08/16/19 15:01 15:46 Temp 36.9 Pulse 103 Resp 16 B/P (MAP) 132/91 (105) Pulse Ox 100 100 O2 Delivery Room Air Capillary Refill : Less Than 3 Seconds Blood Pressure Mean: 105 POS Progress Note : Time: 15:54 Progress Note The patient's CBC was unremarkable. Strep screen was negative. Patient was symptomatically improved with albuterol nebulized treatment. Next Given the fact that patient has had a history of asthma in the past and albuterol inhaler was prescribed. The patient has had symptoms for 2 weeks and it seemed not unreasonable to consider the possibility of atypical pneumonia. Patient was given a Z-Papa. 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 She was invited to return if she has any further problems or questions. Departure Impression Primary Impression: Upper respiratory infection Qualified Codes: J06.9 - Acute upper respiratory infection, unspecified Disposition: HOME, SELF-CARE Condition: Improved Departure-Patient Inst. Decision time for Depature: 15:56 Referrals: [facility] (PCP) Primary Care Physician MARILEE MEJIA APRN (Family) Primary Care Physician Patient Instructions: Bacterial Upper Respiratory Infection, Adult Add. Discharge Instructions: Albuterol inhaler and Zithromax as prescribed. 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 Return if any problems or questions. All discharge instructions reviewed with patient and/or family. Voiced understanding. Scripts Albuterol Sulfate (VENTOLIN HFA) 1 Puff Puff 2 PUFF INH Q4H for 7 Days, PUFF 1 PUFF = 90 MCG Prov: VANESA AMBROCIO MD 08/16/19 Azithromycin (Zithromax) 250 Mg Tablet 250 MG PO UD, #6 TAB TAKE 2 TABLETS TODAY, THEN TAKE 1 TABLET DAILY FOR 4 MORE DAYS Prov: VANESA AMBROCIO MD 08/16/19 VANESA AMBROCIO MD Aug 16, 2019 15:15 POS
[2019-08-16 15:34] LABS: BASOPHILS % (AUTO) 0 % (0-10); EOSINOPHILS # (AUTO) 0.1 10^3/uL (0.0-0.3); EOSINOPHILS % (AUTO) 0 % (0-10); HEMATOCRIT 35 % (35-52); HEMOGLOBIN 11.8 G/DL (11.5-16.0); LYMPHOCYTES # (AUTO) 1.7 X 10^3 (1.0-4.0); LYMPHOCYTES % (AUTO) 14 % (12-44); MEAN CORPUSCULAR HEMOGLOBIN 31 PG (25-34); MEAN CORPUSCULAR HGB CONC 34 G/DL (32-36); MEAN CORPUSCULAR VOLUME 90 FL (80-99); MEAN PLATELET VOLUME 9.9 FL (7.4-10.4); MONOCYTES # (AUTO) 0.9 X 10^3 (0.0-1.0); MONOCYTES % (AUTO) 7 % (0-12); NEUTROPHILS # (AUTO) 9.4 X 10^3 (1.8-7.8); NEUTROPHILS % (AUTO) 78 % (42-75); PLATELET COUNT 241 10^3/uL (130-400); RED CELL DISTRIBUTION WIDTH 13.6 % (10.0-14.5)
[2019-08-16] MEDS ORDERED: RT-ALBUTEROL/IPRATROPIUM 3 ML (DUONEB) VIAL ONE (15:40)
[2019-08-16] MEDS ORDERED: RT-ALBUTEROL SULF 2.5 MG/3 ML PRE-MIX VIAL ONE (15:42)
[2019-08-16] MEDS ORDERED: RT-ALBUINH INH (15:58)
[2019-08-16] MEDS ORDERED: AZIT250T PO (15:58)
[2019-08-16 16:10] VITALS: BP 132/91
[2019-08-16] MEDS ORDERED: RT-ALBUTEROL SULF 2.5 MG/3 ML PRE-MIX VIAL INH SCH (21:00)
== END 2019-08-16 16:10 | disposition home or self-care (01) ==
LOC: EDUNIT# 14:52 → ER 14:54
DX: O99.512 Diseases of the respiratory system complicating pregnancy, second trimester (principal); J06.9 Acute upper respiratory infection, unspecified; J45.909 Unspecified asthma, uncomplicated; O99.612 Diseases of the digestive system complicating pregnancy, second trimester; K21.9 Gastro-esophageal reflux disease without esophagitis; K58.9 Irritable bowel syndrome, unspecified; Z3A.19 19 weeks gestation of pregnancy; Z88.0 Allergy status to penicillin; Z88.2 Allergy status to sulfonamides
CPT/HCPCS: 36415; 85025; 87430; 94640

== ENCOUNTER → 2019-08-22 | Outpatient (CLI) | payer MEDICAID ==
[~2019-08-22] MED LIST changes: +AZIT250T PO; -OMEP-280 PO; +OMEP20CA13 PO; +RT-ALBUINH INH
--- NOTE | 2019-08-22 14:01 | Diagnostic Imaging Report ---
INDICATION: anatomic assessment during normal . TECHNIQUE: Multiple real-time grayscale images were obtained over the gravid uterus. COMPARISON: None. FINDINGS: Single intrauterine currently in transverse orientation, head to the maternal right. Normal amount of amniotic fluid. The placenta is positioned posteriorly and without evidence for previa. Visualized anatomical structures including the kidneys, bladder, stomach, intracranial structures, four-chamber heart, three-vessel cord and cord insertion site, as well as spine and extremities appear unremarkable. No abnormality is demonstrated at this time. Maternal adnexa not visualized. Biometrical measurements are as follows: Biparietal 4.86 cm, age 20 weeks 5 days. Head circumference 4.86 cm, age 20 weeks 5 days. Abdominal circumference 15.46 cm, age 20 weeks 5 days. Femur length 3.13 cm, age 19 weeks 6 days. Sonographic estimate age: 20 weeks 2 days. Sonographic estimated date of delivery: 01/07/20. Estimated Weight: 341 gm (+/- 50 gm). LMP percentile: 68%. heart rate: 144 beats per minute. number: 1 of 1. IMPRESSION: 1. Single viable intrauterine currently in a transverse orientation. Sonographic estimated age 20 weeks 2 days for an estimated date of delivery January 07, 2020. No abnormality is suggested at this time. Dictated by: Dictated on workstation # [id number]
== END ==
LOC: RAD 11:07
PROVIDERS: ATTEND Obstetrics & Gynecology
DX: Z34.92 Encounter for supervision of normal pregnancy, unspecified, second trimester (principal); Z3A.20 20 weeks gestation of pregnancy
CPT/HCPCS: 76805

== ENCOUNTER 2019-10-30 02:50 | Outpatient (CLI) | payer MEDICAID ==
[~2019-10-30] VITALS: Ht 149.9 cm; Wt 59.9 kg
[~2019-10-30 02:50] MED LIST changes: +OMEP-280 PO; -OMEP20CA13 PO
--- NOTE | 2019-10-30 03:00 | NUR ---
ENE KNOTT Ruben , [birth year], presented to unit via from ED, accompanied by SO, with c/o LOW PELVIC PAIN and pain during urination. ENE KNOTT weighed, gowned, voided, and to bed. EFHM and TOCO applied, VS taken. ENE KNOTT oriented to bed controls, call light, TV, heat, and A/C controls. Pt. denies contraction and leaking of fluids. Confirms movement.
[2019-10-30 03:22] LABS: BILIRUBIN,URINE NEGATIVE (NEGATIVE); CLARITY,URINE SL CLOUDY; COLOR,URINE YELLOW; GLUCOSE, URINE (UA) TRACE (NEGATIVE); KETONES,URINE NEGATIVE (NEGATIVE); LEUKOCYTE ESTERASE ,URINE TRACE (NEGATIVE); NITRITE,URINE NEGATIVE (NEGATIVE); PROTEIN,URINE NEGATIVE (NEGATIVE)
[2019-10-30 03:30] VITALS: BP 118/69
[2019-10-30 03:31] LABS: AMORPHOUS SEDIMENT,UR FEW AMOR PHOSPHATE /LPF; BACTERIA,URINE MODERATE /HPF; RBC,URINE RARE /HPF; SQUAMOUS EPITHELIAL CELL,UR 25-50 /HPF
[2019-10-30] MEDS ORDERED: CETI10CA PO (03:41)
[2019-10-30] MEDS ORDERED: PREN-142 PO (03:41)
[2019-10-30] MEDS ORDERED: FLUT9.9S NS (03:42)
[2019-10-30] MEDS ORDERED: PHEN-640 PO ×2 (03:45→03:47)
[2019-10-30] MEDS ORDERED: NITR-65 PO (03:47)
--- NOTE | 2019-10-30 03:54 | NUR ---
Discharge instructions discussed with patient. Pt denies any questions or concerns. Signature sheet signed, placed on chart. Pt ambulating off unit to private vehicle at time. No signs of distress noted.
--- NOTE | 2019-10-31 08:20 | Physician Query-Final Dx ---
Clinic Account Progress/Dx Physician Query: Please give diagnosis Please include # weeks gestation Date of Service Oct 30, 2019 at 02:50 LEON MCGEE Oct 31, 2019 08:20
== END 2019-10-30 03:54 | disposition home or self-care (01) ==
LOC: WSo 02:50 → LDRP 02:51 → WSo 03:54
PROVIDERS: ATTEND Obstetrics & Gynecology
DX: O26.899 Other specified pregnancy related conditions, unspecified trimester (principal); R10.2 Pelvic and perineal pain; Z3A.00 Weeks of gestation of pregnancy not specified
CPT/HCPCS: 81000; 87088

== ENCOUNTER 2019-11-24 21:23 | Outpatient (CLI) | payer MEDICAID ==
[~2019-11-24 21:23] MED LIST changes: +FLUT9.9S NS; -MONT10TA24; +MONT10TA26; +NITR-65 PO; -OMEP-280 PO; +OMEP20CA18 PO; +PHEN-640 PO; +PREN-142 PO
--- NOTE | 2019-11-24 21:35 | NUR ---
ENE KNOTT presented to unit via from ED, accompanied by s/o, with c/o VOMITTING/nausea/diarrhea x2 days . ENE KNOTT weighed, gowned, voided, and to bed. EFHM and TOCO applied, VS taken. ENE KNOTT oriented to bed controls, call light, TV, heat, and A/C controls.
[2019-11-24 21:42] VITALS: BP 121/75
[2019-11-24 21:54] LABS: BILIRUBIN,URINE NEGATIVE (NEGATIVE); COLOR,URINE YELLOW; GLUCOSE, URINE (UA) NEGATIVE (NEGATIVE); KETONES,URINE 2+ (NEGATIVE); LEUKOCYTE ESTERASE ,URINE TRACE (NEGATIVE); NITRITE,URINE NEGATIVE (NEGATIVE); PROTEIN,URINE TRACE (NEGATIVE)
[2019-11-24 22:00] LABS: BACTERIA,URINE TRACE /HPF; CLARITY,URINE SL CLOUDY; RBC,URINE 0-2 /HPF; WBC,URINE 0-2 /HPF
[2019-11-24] MEDS ORDERED: ONDANSETRON 4 MG/2 ML (SDV) Z0FRAN ONE (22:10)
[2019-11-24] MEDS ORDERED: ONDANSETRON 4 MG/2 ML (SDV) Z0FRAN IVP PRN (22:15)
[2019-11-24] MEDS ORDERED: LOPERAMIDE 2 MG (IMODIUM) TABLET PO ONE (22:15)
[2019-11-24] MEDS ORDERED: LACTATED RINGERS 1,000 ML IV SCH (22:15)
[2019-11-24 22:53] VITALS: BP 0/0
--- NOTE | 2019-11-24 23:50 | NUR ---
Pt discharge packet given, understanding voiced, no concerns noted. ambulatory off unit at this time accompanied by s/o.
--- NOTE | 2019-11-25 08:08 | Physician Query-Final Dx ---
Clinic Account Progress/Dx Physician Query: Please give diagnosis Please include # weeks gestation Date of Service Nov 24, 2019 at 21:23 LEON MCGEE Nov 25, 2019 08:08
== END 2019-11-24 23:50 | disposition home or self-care (01) ==
LOC: WSo 21:23 → LDRP 21:23 → WSo 23:50
PROVIDERS: ATTEND Obstetrics & Gynecology
DX: O21.9 Vomiting of pregnancy, unspecified (principal); Z3A.33 33 weeks gestation of pregnancy
CPT/HCPCS: 81000; 96361; 96374; 99213

== ENCOUNTER 2019-12-07 20:32 | Outpatient (CLI) | payer MEDICAID ==
[~2019-12-07] VITALS: Ht 149 cm; Wt 64.6 kg
--- NOTE | 2019-12-07 20:45 | NUR ---
ENE KNOTT presented to unit via from ED, accompanied by s/o, with c/o UTI SYMPTOMS 35 1/7gest. ENE KNOTT weighed, gowned, voided, and to bed. EFHM and TOCO applied, VS taken. ENE KNOTT oriented to bed controls, call light, TV, heat, and A/C controls.
[2019-12-07 20:52] LABS: BILIRUBIN,URINE NEGATIVE (NEGATIVE); CLARITY,URINE SL CLOUDY; COLOR,URINE YELLOW; GLUCOSE, URINE (UA) NEGATIVE (NEGATIVE); KETONES,URINE NEGATIVE (NEGATIVE); LEUKOCYTE ESTERASE ,URINE NEGATIVE (NEGATIVE); NITRITE,URINE NEGATIVE (NEGATIVE); PROTEIN,URINE TRACE (NEGATIVE)
[2019-12-07 20:54] VITALS: BP 136/72
[2019-12-07 21:08] LABS: SQUAMOUS EPITHELIAL CELL,UR 25-50 /HPF
[2019-12-07 21:10] LABS: BACTERIA,URINE FEW /HPF
[2019-12-07 21:11] LABS: CALCIUM OXALATE CRYSTALS,UR MODERATE /LPF
--- NOTE | 2019-12-07 21:16 | NUR ---
notified of pt's arrival and exam. new orders received.
[2019-12-07] MEDS ORDERED: D5 LR IV SOLUTION 1,000 ML IV ONE (21:17)
[2019-12-07] MEDS ORDERED: D5 LR IV SOLUTION 1,000 ML IV SCH (21:30)
[2019-12-07 22:04] LABS: BASOPHILS % (AUTO) 0 % (0-10); EOSINOPHILS # (AUTO) 0.1 10^3/uL (0.0-0.3); EOSINOPHILS % (AUTO) 1 % (0-10); HEMATOCRIT 33 % (35-52); HEMOGLOBIN 10.5 G/DL (11.5-16.0); LYMPHOCYTES # (AUTO) 2.1 X 10^3 (1.0-4.0); LYMPHOCYTES % (AUTO) 14 % (12-44); MEAN CORPUSCULAR HEMOGLOBIN 27 PG (25-34); MEAN CORPUSCULAR HGB CONC 32 G/DL (32-36); MEAN CORPUSCULAR VOLUME 85 FL (80-99); MEAN PLATELET VOLUME 10.6 FL (7.4-10.4); MONOCYTES # (AUTO) 1.2 X 10^3 (0.0-1.0); MONOCYTES % (AUTO) 8 % (0-12); NEUTROPHILS # (AUTO) 12.2 X 10^3 (1.8-7.8); NEUTROPHILS % (AUTO) 78 % (42-75); PLATELET COUNT 192 10^3/uL (130-400); RED CELL DISTRIBUTION WIDTH 15.8 % (10.0-14.5); WHITE BLOOD COUNT 15.7 10^3/uL (4.3-11.0)
[2019-12-07] MEDS ORDERED: ceFAZolin 2 GM IV Premixed 50 ML ONE (22:05)
--- NOTE | 2019-12-07 22:08 | NUR ---
notified of lab results. No new orders received. Addendum: 12/07/19 at 2309 by SUKUMAR ZUNIGA RN notified of lab results. new orders received.
[2019-12-07] MEDS ORDERED: ceFAZolin 2 GM IV Premixed 50 ML IV ONE (22:15)
[2019-12-07 22:50] LABS: EOSINOPHILS % (MANUAL) 1 %; LYMPHOCYTES % (MANUAL) 13 %; MONOCYTES % (MANUAL) 5 %; NEUTROPHILS % (MANUAL) 81 %
[2019-12-07 22:51] LABS: RBC MORPH NORMAL
[2019-12-07 23:00] VITALS: BP 100/71
[2019-12-07 23:09] VITALS: BP 136/72
--- NOTE | 2019-12-07 23:09 | NUR ---
pt requesting something to eat. cold tray provided
--- NOTE | 2019-12-07 23:34 | NUR ---
pt up to the bathroom. pt states she is feeling much better.
[2019-12-07] MEDS ORDERED: CEPH-507 PO (23:37)
[2019-12-08 00:05] VITALS: BP 131/86
--- NOTE | 2019-12-08 00:05 | NUR ---
SVE performed, no cervical change noted. pt feeling better. requesting to go home. pt dc'd from the monitor. iv dc'd. discharge instructions verbalized. pt dc'd home with s/o at side. Will sisal picker prescription tomorrow at [facility]
--- NOTE | 2019-12-08 08:47 | Physician Query-Final Dx ---
LEON MCGEE 12/08/19 0847: Clinic Account Progress/Dx Physician Query: Please give diagnosis Please include # weeks gestation Date of Service Dec 07, 2019 at 20:32 RIAN LAWLER MD 12/10/19 1521: Clinic Account Progress/Dx DIAGNOSIS: Diagnosis 35 weeks with false labor LEON MCGEE Dec 08, 2019 08:47 RIAN LAWLER MD Dec 10, 2019 15:21
== END 2019-12-08 00:05 ==
LOC: WSo 20:32
PROVIDERS: ATTEND Obstetrics & Gynecology
DX: O26.893 Other specified pregnancy related conditions, third trimester (principal); R39.9 Unspecified symptoms and signs involving the genitourinary system; Z3A.35 35 weeks gestation of pregnancy
CPT/HCPCS: 36415; 81000; 85007; 85027; 87088; 96361; 96374; 99214

== ENCOUNTER 2019-12-18 11:28 | Outpatient (CLI) | payer MEDICAID ==
[~2019-12-18] VITALS: Ht 149.9 cm; Wt 68.4 kg
[~2019-12-18 11:28] MED LIST changes: +CEPH-507 PO
--- NOTE | 2019-12-18 11:30 | NUR ---
ENE KNOTT presented to unit via AMBULATORY from ED, accompanied by MOTHER, with c/o PELVIC/LOWER BACK PAIN. ENE KNOTT weighed, gowned, voided, and to bed. EFHM and TOCO applied, VS taken. ENE KNOTT oriented to bed controls, call light, TV, heat, and A/C controls.
[2019-12-18 11:42] VITALS: BP 131/87
--- NOTE | 2019-12-18 12:11 | NUR ---
DR GRIMES CALLED BY THIS RN WITH PT REPORT. PT PT OF DR BUNN, 36.5 WK GEST, . CO CONTRACTIONS AND VAGINAL DISCHARGE THAT SHE DESCRIBES WHITE/GREENISH IN COLOR. UC APPROX 6-7 MIN, REACTIVE FHT. UNABLE TO PREFORM SVE, PT VERY TENDER, FIGHTING EXAM AND CRAWLING UP THE BED. URINE DIPSTICK RESUTLS READ TO DR GRIMES. DR GRIMES ORDERS A WET PREP, DO PREFORM SVE BEFORE DC, CONTINUE TO MONITOR A LITTLE LONGER, GIVE PT WATER TO DRINK.
[2019-12-18 12:31] VITALS: BP 131/87
--- NOTE | 2019-12-18 12:59 | NUR ---
DR GRIMES ON LD. THIS RN GIVES UPDATED PT REPORT. WET PREP RESULTS AND URINE DIP RESULTS REVIEWED WITH DR GRIMES. DR GRIMES REVIEWED FHT STRIP. PT MAY DC TO HOME. EDUCATE TO GREATLY INCREASE WATER INTAKE.
--- NOTE | 2019-12-19 08:40 | Physician Query-Final Dx ---
LEON MCGEE 12/19/19 0840: Clinic Account Progress/Dx Physician Query: Please give diagnosis Please include # weeks gestation Date of Service Dec 18, 2019 at 11:28 TEGAN GRIMES DO 12/21/19 0906: Clinic Account Progress/Dx DIAGNOSIS: Diagnosis 35 weeks Vaginal irritation Irregular contractions LEON MCGEE Dec 19, 2019 08:40 TEGAN GRIMES DO Dec 21, 2019 09:06
== END 2019-12-18 13:05 | disposition home or self-care (01) ==
LOC: WSo 11:28 → LDRP 11:29 → WSo 13:05
PROVIDERS: ATTEND Obstetrics & Gynecology
DX: O62.9 Abnormality of forces of labor, unspecified (principal); O26.891 Other specified pregnancy related conditions, first trimester; N89.8 Other specified noninflammatory disorders of vagina; Z3A.35 35 weeks gestation of pregnancy
CPT/HCPCS: 87210; 99214

== ENCOUNTER → 2019-12-19 | Outpatient (CLI) | payer MEDICAID ==
[~2019-12-19] MED LIST changes: +prilosec PO
== END ==
LOC: LABNPT 11:00
PROVIDERS: ATTEND Obstetrics & Gynecology
DX: O14.00 Mild to moderate pre-eclampsia, unspecified trimester (principal)
CPT/HCPCS: 82570; 84156

== ENCOUNTER 2019-12-20 10:45 | Outpatient (CLI) | payer MEDICAID ==
[~2019-12-20] VITALS: Ht 149.9 cm; Wt 69.1 kg
[2019-12-20] VITALS (9 sets, daily range): BP systolic 120–141; BP diastolic 72–96
[~2019-12-20 10:45] MED LIST changes: -prilosec PO
--- NOTE | 2019-12-20 10:50 | NUR ---
Arrived to unit ambulates self accompanied by s.o. for nonstress test, bp check and steroid shot. Wt obtained and to room 315. To bed and plan of care reviewed. Call light with in reach. bed controls explained. ice water at bedside for pt.
[2019-12-20] MEDS ORDERED: BETAMETHASONE ACE/NA PHOS 6 MG/ML (CELESTONE SOLUSPAN) IM SCH (11:00)
--- NOTE | 2019-12-20 11:21 | NUR ---
Dr Soliz notified of pt arrival to unit.
--- NOTE | 2019-12-20 11:23 | NUR ---
monitors off reactive NST noted.
--- NOTE | 2019-12-20 13:00 | NUR ---
Dr Soliz notified of reactive NST, bp's and pt c/o RUQ pain. new orders received. plan of care reviewed with pt and .so.
[2019-12-20] MEDS ORDERED: FAMOTIDINE 20 MG (PEPCID) TABLET ONE (13:13)
[2019-12-20] MEDS ORDERED: FAMOTIDINE 20 MG (PEPCID) TABLET PO ONE (13:30)
--- NOTE | 2019-12-20 13:38 | NUR ---
toast to bedside for pt. sandwich tray given to s.o. at bedside.
[2019-12-20 13:43] LABS: ALBUMIN 3.2 GM/DL (3.2-4.5); CHLORIDE 110 MMOL/L (98-107); POTASSIUM 3.8 MMOL/L (3.6-5.0); SODIUM 138 MMOL/L (135-145)
[2019-12-20 13:44] LABS: CALCIUM 8.4 MG/DL (8.5-10.1)
[2019-12-20 13:45] LABS: GLUCOSE 98 MG/DL (70-105)
[2019-12-20 13:46] LABS: TOTAL PROTEIN 5.9 GM/DL (6.4-8.2)
[2019-12-20 13:47] LABS: BILIRUBIN,TOTAL 0.2 MG/DL (0.1-1.0); CARBON DIOXIDE 16 MMOL/L (21-32)
[2019-12-20 13:49] LABS: ALKALINE PHOSPHATASE 151 U/L (40-136); CREATININE SERUM 0.59 MG/DL (0.60-1.30); GFR ESTIMATED > 60
[2019-12-20 13:50] LABS: BUN/CREATININE RATIO 12
[2019-12-20 13:52] LABS: ALANINE AMINOTRANSFERASE 17 U/L (0-55)
--- NOTE | 2019-12-20 13:59 | NUR ---
Dr Soliz called and notified of lab results, pt bp's obtained. New orders received. Rn to pt bedside and plan of care reviewed with pt and s.o. both verbalized understanding.
[2019-12-20] MEDS ORDERED: CETI10CA PO ×2 (14:09)
[2019-12-20] MEDS ORDERED: prilosec PO ×2 (14:14)
--- NOTE | 2019-12-20 14:20 | NUR ---
Discharge instructions explained, signed and copy to patient. pt verbalized understanding of orders and questions answered.
--- NOTE | 2019-12-20 14:25 | NUR ---
Discharged to home. Downstairs in wheelchair to private vehicle. Accompanied by staff member and s.o. belongings in hand.
--- NOTE | 2019-12-22 08:41 | Physician Query-Final Dx ---
Clinic Account Progress/Dx Physician Query: Please give diagnosis Please include # weeks gestation Date of Service Dec 20, 2019 at 10:45 LEON MCGEE Dec 22, 2019 08:41
== END 2019-12-20 14:25 | disposition home or self-care (01) ==
LOC: WSo 10:45 → LDRP 12:39 → WSo 14:25
PROVIDERS: ATTEND Obstetrics & Gynecology
DX: O14.00 Mild to moderate pre-eclampsia, unspecified trimester (principal); Z3A.37 37 weeks gestation of pregnancy
CPT/HCPCS: 36415; 59025; 80053; 82570; 84156; 96372

== ENCOUNTER 2019-12-22 11:10 | Inpatient (IN) | payer MEDICAID ==
[~2019-12-22] VITALS: Ht 149.8 cm; Wt 70.4 kg
[2019-12-22] VITALS (23 sets, daily range): BP systolic 124–159; BP diastolic 76–109
[~2019-12-22 11:10] MED LIST changes: +prilosec PO
--- NOTE | 2019-12-22 11:10 | NUR ---
ENE KNOTT presented to unit via from ED, accompanied by Atif Gonzalez, with c/o . ENE KNOTT weighed, gowned, voided, and to bed. EFHM and TOCO applied, VS taken. ENE KNOTT oriented to bed controls, call light, TV, heat, and A/C controls.
[2019-12-22] MEDS ORDERED: D5 LR IV SOLUTION 1,000 ML IV SCH (11:28)
[2019-12-22] MEDS ORDERED: FAMOTIDINE 20MG/2ML IV (PEPCID) IV ONE (11:30)
[2019-12-22] MEDS ORDERED: CITRIC ACID/SOB CIT (BICITRA) 30 ML UDC PO ONE (11:30)
[2019-12-22] MEDS ORDERED: METOCLOPRAMIDE INJ 10 MG/2 ML (REGLAN) IV ONE (11:30)
--- OUTSIDE RECORDS SUMMARY | 2019-12-22 11:53 | XMS REPORT | Continuity of Care Document ---
Author Organization Unknown Address Unknown Phone Unavailable Allergies Active Description Code Type Severity Reaction Onset Reported/Identified Relationship to Patient Clinical Status Yes Penicillins Drug Allergy N/A N/A 08/19/2014 Yes Penicillins [id number] Drug Aller gy Unknown N/A 05/12/2015 Yes SULFA SULFA Unknown N/A 10/14/2016 Yes SULFA SULFA Unknown N/V 05/16/2017 Yes Sulfa (Sulfonamide Antibiotics) [id number] Drug Allergy Unknown N/A 019 Yes Penicillins [id number] Drug Aller gy Mild HIVES 04/18/2019 Yes Sulfa (Sulfonamide Antibiotics) [id number] 0491 Drug Allergy Mild HIVES 9 Medications There is no data. 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 PAIN NEC 07/09/2013 BELINDA GRAJEDA Ot 719.42 [...] BELINDA GRAJEDA Ot E884.9 FALL-1 LEVEL TO [facility] NEC 09/01/2013 LEO MOSER APRN Ot 462 ACUTE PHARYNGITIS 03/23/2014 LEO MOSER 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 Ot 465 .9 ACUTE URI NOS 08/19/2014 JOSE RAMON PALOMO APRN R 462 ACUTE PHARYNGITIS 08/19/2014 MADL 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, IVETH L 462 ACUTE PHARYNGITIS 08/19/2014 ANDRESL 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, IVETH L 462 ACUTE PHARYNGITIS 08/19/2014 MADL 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, IVETH L 462 ACUTE PHARYNGITIS 08/23/2014 LEO MOSER APRN Ot 780.60 FEVER, UNSPECIFIED 08/23/2014 LEO MOSER 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 Ot 789.00 ABDOMINAL PAIN, UNSPECIFIED SITE 09/07/2014 MADL 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, IVETH L 381 .01 ACUTE SEROUS OTITIS MEDIA 09/07/2014 MADL 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, IVETH L 477 .9 ALLERGIC RHINITIS CAUSE UNSPECIFIED 09/07/2014 MADL 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, IVETH L 493 .90 ASTHMA UNSPECIFIED 09/07/2014 MADL 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, IVETH L 381 .01 ACUTE SEROUS OTITIS MEDIA 09/07/2014 MADL 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, IVETH L 477 .9 ALLERGIC RHINITIS CAUSE UNSPECIFIED 09/07/2014 MADL 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, IVETH L 493 .90 ASTHMA UNSPECIFIED 09/07/2014 MADL 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, IVETH L 381 .01 ACUTE SEROUS OTITIS MEDIA 09/07/2014 ANDRESL 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, IVETH L 477 .9 ALLERGIC RHINITIS CAUSE UNSPECIFIED 09/07/2014 ANDRESL 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, IVETH L 493 .90 ASTHMA UNSPECIFIED 10/20/2014 MADL 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, IVETH L 780 .60 FEVER UNSPECIFIED 10/20/2014 MADL 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, IVETH L 780 .60 FEVER UNSPECIFIED 10/22/2014 ANDRESL 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, IVETH L 465 .9 UPPER RESPIRATORY INFECTION 04/09/2015 DARION BRIGGS MD Ot 493.90 ASTHMA, UNSPECIFIED 04/09/2015 DARION BRIGGS MD Ot 625 .9 FEM GENITAL SYMPTOMS NOS 04/09/2015 DARION BRIGGS MD Ot 789.00 ABDOMINAL PAIN, UNSPECIFIED SITE 05/12/2015 ABBY ROMO DO Ot 692.9 DERMATITIS NOS 05/12/2015 ABBY ROMO DO Ot 698.9 PRURITIC DISORDER NOS 06/14/2015 HEATHER SOARES, ROSANNE Miranda Ot J06. 9 ACUTE UPPER RESPIRATORY INFECTION, UNSPE 06/14/2015 ROSANNE ROMERO MD Ot J45.901 UNSPECIFIED ASTHMA WITH (ACUTE) EXACERBA 06/14/2015 HEATHER SOARES, ROSANNE Miranda Ot R06. 02 SHORTNESS OF BREATH 06/19/2015 Ot J06.9 ACUT E UPPER RESPIRATORY INFECTION, UNSPE 06/19/2015 Ot R22.1 LOCA LIZED SWELLING, MASS AND LUMP, NECK 12/14/2015 LAURIE DIAZ MD Ot J45.901 UNSPECIFIED ASTHMA WITH (ACUTE) EXACERBA 12/15/2015 LAURIE DAIZ MD Ot J45.901 01/12/2016 KAYODE BUNN DO C Ot N83.2 0 UNSPECIFIED OVARIAN CYSTS 01/12/2016 TYLER BUNN DOA C Ot R10.1 1 RIGHT UPPER QUADRANT PAIN 01/12/2016 KAYODE BUNN DO C Ot N83.2 0 UNSPECIFIED OVARIAN CYSTS 01/12/2016 SEPIDEH CARMICHAEL KAYODE C Ot R10.1 1 RIGHT UPPER QUADRANT PAIN 02/22/2016 ABBY ROMO DO Ot K12.1 OTHER FORMS OF STOMATITIS 02/22/2016 SEPIDEH CARMICHAEL KAYODE C Ot N83.2 0 UNSPECIFIED OVARIAN CYSTS 02/22/2016 KAYODE BUNN DO Ot R10.1 1 RIGHT UPPER QUADRANT PAIN 02/23/2016 ABBY ROMO [...] Ot Y99.8 OTHER EXTERNAL CAUSE STATUS 03/30/2016 KAYODE BUNN DO Ot N83.2 0 UNSPECIFIED OVARIAN CYSTS 03/30/2016 KAYODE BUNN DO Ot R10.1 1 RIGHT UPPER QUADRANT PAIN 03/31/2016 BELINDA GRAJEDA [...] Z32.02 ENCOUNTER FOR TEST, RESULT NEG 04/28/2016 TYLER BUNN DOA Shahzad Ot N83.2 0 UNSPECIFIED OVARIAN CYSTS 04/28/2016 SEPIDEH CARMICHAEL KAYODE C Ot R10.1 1 RIGHT UPPER QUADRANT PAIN 05/01/2016 LEO MOSER APRN Ot R09.81 NASAL CONGESTION 05/01/2016 LEO MOSER APRN Ot Z32.02 ENCOUNTER FOR TEST, RESULT NEG 05/21/2016 EDDA SOARES, AUSTIN Joel Ot T63.391A TOXIC EFFECT OF VENOM OF SPIDER, ACCIDEN 05/21/2016 EDDA SOARES, AUSTIN T Ot Y92.[address] [facility] [address] IN [facility] NON[facility] (PRIVATE 05/21/2016 SEPIDEH CARMICHAEL KAYODE C Ot N83.2 0 UNSPECIFIED OVARIAN CYSTS 05/21/2016 SEPIDEH CARMICHAEL KAYODE C Ot R10.1 1 RIGHT UPPER QUADRANT PAIN 07/17/2016 SEPIDEH CARMICHAEL KAYODE C Ot N83.2 0 UNSPECIFIED OVARIAN CYSTS 07/17/2016 SEPIDEH CARMICHAEL KAYODE C Ot R10.1 1 RIGHT UPPER QUADRANT PAIN 07/17/2016 LEO MOSER APRN Ot B34 .9 VIRAL INFECTION, UNSPECIFIED 07/17/2016 LEO MOSER APRN Ot J02 .9 ACUTE PHARYNGITIS, UNSPECIFIED 07/18/2016 LEO MOSER APRN Ot B34 .9 VIRAL INFECTION, UNSPECIFIED 07/18/2016 LEO MOSER APRN Ot J02 .9 ACUTE PHARYNGITIS, UNSPECIFIED 07/21/2016 ABBY ROMO DO [...] R35.0 FREQUENCY OF MICTURITION 07/25/2016 LEO MOSER 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 Ot B37 .3 CANDIDIASIS OF VULVA AND VAGINA 07/25/2016 LEO MOSER 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 Ot R21 RASH AND OTHER NONSPECIFIC SKIN ERUPTION 07/26/2016 LEO MOSER 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 Ot B37 .3 CANDIDIASIS OF VULVA AND VAGINA 07/26/2016 LEO MOSER 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 Ot R21 RASH AND OTHER NONSPECIFIC SKIN [...] LEFT LOWER QUADRANT PAIN 09/25/2016 LAURIE DIAZ MD Ot J40 BRONCHITIS, NOT [...] R45.1 RESTLESSNESS AND AGITATION 09/27/2016 LAURIE DIAZ MD, Ot T38.0X5A ADVERSE EFFECT OF GLUCOCORT/SYNTH ANALOG 09/27/2016 LAURIE DIAZ MD, Ot T48.6X5A ADVERSE EFFECT OF ANTIASTHMATICS, INITIA 10/14/2016 BELINDA GRAJEDA Ot N39.0 URINARY TRACT INFECTION, SITE NOT SPECIF 10/14/2016 BELINDA GRAJEDA Ot R10.84 GENERALIZED ABDOMINAL PAIN 10/14/2016 BELINDA GRAJEDA Ot R11.2 NAUSEA WITH VOMITING, UNSPECIFIED 10/19/2016 BELINDA GRAJEDA Ot N39.0 URINARY TRACT INFECTION, SITE NOT SPECIF 10/19/2016 BELINDA GRAJEDA Ot R10.84 GENERALIZED ABDOMINAL PAIN 10/19/2016 BELINDA GRAJEDA Ot R11.2 NAUSEA WITH VOMITING, UNSPECIFIED 12/14/2016 BUNN DO, KAYODE C Ot N83.2 0 UNSPECIFIED OVARIAN CYSTS 12/14/2016 BUNN DO KAYODE C Ot R10.1 1 RIGHT UPPER QUADRANT PAIN 12/14/2016 BUNN DO, KAYODE C Ot N83.2 0 UNSPECIFIED OVARIAN CYSTS 12/14/2016 SEPIDEH CARMICHAEL, KAYODE C Ot R10.1 1 RIGHT UPPER QUADRANT PAIN 12/15/2016 ABBY ROMO DO Ot 692.9 DERMATITIS NOS 12/15/2016 ABBY ROMO DO Ot 698.9 PRURITIC DISORDER NOS 12/15/2016 LEO MOSER APRN Ot B34 .9 VIRAL INFECTION, UNSPECIFIED 12/15/2016 LEO MOSER 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 Ot J02 .9 ACUTE PHARYNGITIS, UNSPECIFIED 12/15/2016 ABBY ROMO DO Ot N83.201 UNSPECIFIED OVARIAN CYST, RIGHT SIDE 12/15/2016 ABBY ROMO DO Ot R10.31 RIGHT LOWER QUADRANT PAIN 12/15/2016 ABBY ROMO DO Ot R35.0 FREQUENCY OF MICTURITION 12/15/2016 BELINDA GRAJEDA Ot N39.0 URINARY TRACT INFECTION, SITE NOT SPECIF 12/15/2016 BELINDA GRAJEDA Ot R10.84 GENERALIZED ABDOMINAL PAIN 12/15/2016 BELINDA GRAJEDA Ot R11.2 NAUSEA WITH VOMITING, UNSPECIFIED 12/31/2016 LEO MOSER APRN Ot K59.00 CONSTIPATION, UNSPECIFIED 12/31/2016 LEO MOSER 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 Ot R10.30 LOWER ABDOMINAL PAIN, UNSPECIFIED 12/31/2016 LEO MOSER 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 Ot R30 .0 DYSURIA 01/02/2017 LEO MOSER APRN Ot K59.00 CONSTIPATION, UNSPECIFIED 01/02/2017 LEO MOSER 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 Ot R10.30 LOWER ABDOMINAL PAIN, UNSPECIFIED 01/02/2017 LEO MOSER 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 Ot R30 .0 DYSURIA 01/02/2017 BUNN DO, KAYODE C Ot N83.2 0 UNSPECIFIED OVARIAN CYSTS 01/02/2017 BUNN DO, KAYODE C Ot R10.1 1 RIGHT UPPER QUADRANT PAIN 02/22/2017 BUNN DO, KAYODE C Ot N83.2 0 UNSPECIFIED OVARIAN CYSTS 02/22/2017 BUNN DO, KAYODE C Ot R10.1 1 RIGHT UPPER QUADRANT PAIN 02/23/2017 Ot J06.9 ACUT E UPPER RESPIRATORY INFECTION, UNSPE 02/23/2017 Ot R22.1 LOCA LIZED SWELLING, MASS AND LUMP, NECK 05/14/2017 LEO MOSER 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 Ot J45.909 UNSPECIFIED ASTHMA, UNCOMPLICATED 05/14/2017 LEO MOSER APRN Ot N39 .0 URINARY TRACT INFECTION, SITE NOT SPECIF 05/14/2017 LEO MOSER 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 Ot R10 .9 UNSPECIFIED ABDOMINAL PAIN 07/04/2017 NAKUL ZEPEDA FLOOR MOLDER Ot J45.909 UNSPECIFIED ASTHMA, UNCOMPLICATED 07/04/2017 KATELYN NAKUL FLOOR MOLDER Ot N39.0 URINARY TRACT INFECTION, SITE NOT SPECIF 07/10/2017 KATELYN, NAKUL FLOOR MOLDER Ot J45.909 UNSPECIFIED ASTHMA, UNCOMPLICATED 07/10/2017 KATELYN, NAKUL FLOOR MOLDER Ot N39.0 URINARY TRACT INFECTION, SITE NOT SPECIF 07/26/2017 LEO MOSER APRN Ot J02 .9 ACUTE PHARYNGITIS, UNSPECIFIED 07/26/2017 LEO MOSER 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 Ot J06 .9 ACUTE UPPER RESPIRATORY INFECTION, UNSPE 07/26/2017 LEO MOSER 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 Ot J45.909 UNSPECIFIED ASTHMA, UNCOMPLICATED 07/26/2017 LEO MOSER 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 Ot N39 .0 URINARY TRACT INFECTION, SITE NOT SPECIF 09/26/2017 BUNN DO, KAYODE C Ot N83.2 0 UNSPECIFIED OVARIAN CYSTS 09/26/2017 BUNN DO, KAYODE C Ot R10.1 1 RIGHT UPPER QUADRANT PAIN 12/15/2017 ROBERT GRAJEDAEN L Ot J45.909 UNSPECIFIED ASTHMA, UNCOMPLICATED 12/15/2017 EBLINDA GRAJEDA Ot N76.0 ACUTE VAGINITIS 12/15/2017 BELINDA GRAJEDA L Ot R10.30 LOWER ABDOMINAL PAIN, UNSPECIFIED 12/15/2017 BELINDA GRAJEDA L Ot Z87.891 PERSONAL HISTORY [...] STATUS 06/08/2018 BUNN DO, KAYODE C Ot N83.2 0 UNSPECIFIED OVARIAN CYSTS 06/08/2018 BUNN DO, KAYODE C Ot R10.1 1 RIGHT UPPER QUADRANT PAIN 06/09/2018 BUNN DO, KAYODE C Ot N83.2 0 UNSPECIFIED OVARIAN CYSTS 06/09/2018 BUNN DO, KAYODE C Ot R10.1 1 RIGHT UPPER QUADRANT PAIN 06/12/2018 LEO MOSER 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 Ot J45.909 UNSPECIFIED ASTHMA, UNCOMPLICATED 06/12/2018 LEO MOSER 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 Ot K59.00 CONSTIPATION, UNSPECIFIED 06/12/2018 LEO MOSER 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 Ot R10.11 RIGHT UPPER QUADRANT PAIN 06/12/2018 LEO MOSER 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 Ot Z88 .0 ALLERGY STATUS TO PENICILLIN 06/12/2018 LEO MOSER 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 Ot Z88 .2 ALLERGY STATUS TO SULFONAMIDES STATUS 08/05/2018 LEO MOSER 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 Ot J45.909 UNSPECIFIED ASTHMA, UNCOMPLICATED 08/05/2018 LEO MOSER 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 Ot N39 .0 URINARY TRACT INFECTION, SITE NOT SPECIF 08/05/2018 LEO MOSER 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 Ot R10.30 LOWER ABDOMINAL PAIN, UNSPECIFIED 08/05/2018 LEO MOSER 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 Ot Z87.891 PERSONAL HISTORY OF NICOTINE DEPENDENCE 08/05/2018 LEO MOSER 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 Ot Z88 .0 ALLERGY STATUS TO PENICILLIN 08/05/2018 LEO MOSER 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 Ot Z88 .2 ALLERGY STATUS TO SULFONAMIDES STATUS 08/07/2018 LEO MOSER APRN Ot J45.909 UNSPECIFIED ASTHMA, UNCOMPLICATED 08/07/2018 LEO MOSER APRN Ot N39 .0 URINARY TRACT INFECTION, SITE NOT SPECIF 08/07/2018 LEO MOSER 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 Ot R10.30 LOWER ABDOMINAL PAIN, UNSPECIFIED 08/07/2018 LEO MOSER 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 Ot Z87.891 PERSONAL HISTORY OF NICOTINE DEPENDENCE 08/07/2018 LEO MOSER 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 Ot Z88 .0 ALLERGY STATUS TO PENICILLIN 08/07/2018 LEO MOSER 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 Ot Z88 .2 ALLERGY STATUS TO SULFONAMIDES STATUS 08/31/2018 BELINDA GRAJEDA Ot J45.909 UNSPECIFIED ASTHMA, UNCOMPLICATED 08/31/2018 BELINDA GRAJEDA Ot R 05 COUGH 08/31/2018 BELINDA GRAJEDA Ot R50.9 FEVER, UNSPECIFIED 08/31/2018 BELINDA GRAJEDA Ot R53.81 OTHER MALAISE 08/31/2018 BELINDA GRAJEDA Ot Z88.0 ALLERGY STATUS TO PENICILLIN 08/31/2018 BELINDA GRAJEDA Ot Z88.2 ALLERGY STATUS TO [...] UNSPECIFIED ASTHMA, UNCOMPLICATED 09/05/2018 BELINDA GRAJEDA Ot R 05 COUGH 09/05/2018 BELINDA GRAJEDA Ot R50.9 FEVER, UNSPECIFIED 09/05/2018 BELINDA GRAJEDA Ot R53.81 OTHER MALAISE 09/05/2018 BELINDA GRAJEDA Ot Z88.0 ALLERGY STATUS TO PENICILLIN 09/05/2018 BELINDA GRAJEDA Ot Z88.2 ALLERGY STATUS TO SULFONAMIDES STATUS 09/05/2018 BELINDA GRAJEDA Ot J45.909 UNSPECIFIED ASTHMA, UNCOMPLICATED 09/05/2018 BELINDA GRAJEDA Ot R 05 COUGH 09/05/2018 BELINDA GRAJEDA Ot R50.9 FEVER, UNSPECIFIED 09/05/2018 BELINDA GRAJEDA Ot R53.81 OTHER MALAISE 09/05/2018 BELINDA GRAJEDA Ot Z88.0 ALLERGY STATUS TO PENICILLIN 09/05/2018 BELINDA GRAJEDA Ot Z88.2 ALLERGY STATUS TO SULFONAMIDES STATUS 11/02/2018 BELINDA GRAJEDA Ot J18.1 LOBAR PNEUMONIA, UNSPECIFIED ORGANISM 11/02/2018 BELINDA GRAJEDA Ot J45.909 UNSPECIFIED ASTHMA, UNCOMPLICATED 11/02/2018 BELINDA GRAJEDA Ot K21.9 GASTRO-ESOPHAGEAL REFLUX DISEASE WITHOUT 11/02/2018 BELINDA GRAJEDA Ot K58.9 IRRITABLE BOWEL SYNDROME WITHOUT DIARRHE 11/02/2018 BELINDA GRAJEDA Ot K59.00 CONSTIPATION, UNSPECIFIED 11/02/2018 BELINDA GRAJEDA Ot N83.202 UNSPECIFIED OVARIAN CYST, LEFT SIDE 11/02/2018 BELINDA GRAJEDA Ot R10.11 RIGHT UPPER QUADRANT PAIN 11/02/2018 BELINDA GRAJEDA Ot 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 11/02/2018 BELINDA GRAJEDA Ot Z88.0 ALLERGY STATUS TO PENICILLIN 11/02/2018 BELINDA GRAJEDA Ot Z88.2 ALLERGY STATUS TO SULFONAMIDES STATUS 11/02/2018 BELINDA GRAJEDA Ot Z96.22 MYRINGOTOMY TUBE(S) STATUS 11/05/2018 BELINDA GRAJEDA Ot J18.1 LOBAR PNEUMONIA, UNSPECIFIED ORGANISM 11/05/2018 BELINDA GRAJEDA Ot J45.909 UNSPECIFIED ASTHMA, UNCOMPLICATED 11/05/2018 BELINDA GRAJEDA Ot K21.9 GASTRO-ESOPHAGEAL REFLUX DISEASE WITHOUT 11/05/2018 BELINDA GRAJEDA Ot K58.9 IRRITABLE BOWEL SYNDROME WITHOUT DIARRHE 11/05/2018 BELINDA GRAJEDA Ot K59.00 CONSTIPATION, UNSPECIFIED 11/05/2018 BELINDA GRAJEDA Ot N83.202 UNSPECIFIED OVARIAN CYST, LEFT SIDE 11/05/2018 BELINDA GRAJEDA Ot R10.11 RIGHT UPPER QUADRANT PAIN 11/05/2018 BELINDA GRAJEDA Ot 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 11/05/2018 BELINDA GRAJEDA Ot Z88.0 ALLERGY STATUS TO PENICILLIN 11/05/2018 BELINDA GRAJEDA Ot Z88.2 ALLERGY STATUS TO SULFONAMIDES STATUS 11/05/2018 BELINDA GRAJEDA Ot Z96.22 MYRINGOTOMY TUBE(S) STATUS 12/03/2018 MESHA GOETZ DO Ot Z01.8 18 ENCOUNTER FOR OTHER PREPROCEDURAL EXAMIN 12/03/2018 ROQUE GOETZ DOIC B Ot Z01.8 18 ENCOUNTER FOR OTHER PREPROCEDURAL EXAMIN 12/05/2018 ROQUE GOETZ DOIC B Ot Z01.8 18 ENCOUNTER FOR OTHER PREPROCEDURAL EXAMIN 12/05/2018 MESHA GOETZ DO B Ot Z01.8 18 ENCOUNTER FOR OTHER PREPROCEDURAL EXAMIN 12/09/2018 MESHA GOETZ DO Ot B96.8 1 HELICOBACTER PYLORI THE CAUSE OF DISE 12/09/2018 MESHA GOETZ DO Ot J45.9 09 UNSPECIFIED ASTHMA, UNCOMPLICATED 12/09/2018 DELMAN DO, MESHA B Ot K21.9 GASTRO-ESOPHAGEAL REFLUX DISEASE WITHOUT 12/09/2018 DELMAN DO, MESHA B Ot K29.5 0 UNSPECIFIED CHRONIC GASTRITIS WITHOUT BL 12/09/2018 ROBERTMAN DO, MESHA B Ot K59.0 0 CONSTIPATION, UNSPECIFIED 12/09/2018 ROBERTMAN DO, MESHA B Ot K60.2 ANAL FISSURE, UNSPECIFIED 12/09/2018 SOFY DO, MESHA B Ot K62.5 HEMORRHAGE OF ANUS AND RECTUM 12/09/2018 SOFY DO, MESHA B Ot K64.8 OTHER HEMORRHOIDS 12/09/2018 SOFY DO, MESHA B Ot Z79.8 99 OTHER [employer] DRIVER (CURRENT) DRUG THERAPY 12/09/2018 DELBOAZ DO, MESHA B Ot Z88.0 ALLERGY STATUS TO PENICILLIN 12/09/2018 SOFY DO, MESHA B Ot Z88.2 ALLERGY STATUS TO SULFONAMIDES STATUS 12/12/2018 SOFY CARMICHAEL, MESHA B Ot B96.8 1 HELICOBACTER PYLORI THE CAUSE OF DISE 12/12/2018 ROBERTBOAZ , MESHA B Ot J45.9 09 UNSPECIFIED ASTHMA, UNCOMPLICATED 12/12/2018 SOFY DO, MESHA B Ot K21.9 GASTRO-ESOPHAGEAL REFLUX DISEASE WITHOUT 12/12/2018 DELMAN DO, MESHA B Ot K29.5 0 UNSPECIFIED CHRONIC GASTRITIS WITHOUT BL 12/12/2018 SOFY DO, MESHA B Ot K59.0 0 CONSTIPATION, UNSPECIFIED 12/12/2018 SOFY DO, MESHA B Ot K60.2 ANAL FISSURE, UNSPECIFIED 12/12/2018 SOFY CARMICHAEL, MESHA B Ot K62.5 HEMORRHAGE OF ANUS AND RECTUM 12/12/2018 SOFY DO, MESHA B Ot K64.8 OTHER HEMORRHOIDS 12/12/2018 SOFY DO, MESHA B Ot Z79.8 99 OTHER RESIDENTIAL (CURRENT) DRUG THERAPY 12/12/2018 DELBOAZ DO, MESHA B Ot Z88.0 ALLERGY STATUS TO PENICILLIN 12/12/2018 ROBERTBOAZ DO, MESHA B Ot Z88.2 ALLERGY STATUS TO SULFONAMIDES STATUS 12/14/2018 LEO MOSER APRN Ot J45.909 UNSPECIFIED ASTHMA, UNCOMPLICATED 12/14/2018 LEO MOSER APRN Ot N39 .0 URINARY TRACT INFECTION, SITE NOT SPECIF 12/14/2018 LEO MOSER 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 Ot R10.30 LOWER ABDOMINAL PAIN, UNSPECIFIED 12/14/2018 LEO MOSER 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 Ot Z87.891 PERSONAL HISTORY OF NICOTINE DEPENDENCE 12/14/2018 LEO MOSER 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 Ot Z88 .0 ALLERGY STATUS TO PENICILLIN 12/14/2018 LEO MOSER 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 Ot Z88 .2 ALLERGY STATUS TO SULFONAMIDES STATUS 12/14/2018 BELINDA GRAJEDA Ot J18.1 LOBAR PNEUMONIA, UNSPECIFIED ORGANISM 12/14/2018 BELINDA GRAJEDA Ot J45.909 UNSPECIFIED ASTHMA, UNCOMPLICATED 12/14/2018 BELINDA GRAJEDA Ot K21.9 GASTRO-ESOPHAGEAL REFLUX DISEASE WITHOUT 12/14/2018 BELINDA GRAJEDA Ot K58.9 IRRITABLE BOWEL SYNDROME WITHOUT DIARRHE 12/14/2018 BELINDA GRAJEDA Ot K59.00 CONSTIPATION, UNSPECIFIED 12/14/2018 BELINDA GRAJEDA Ot N83.202 UNSPECIFIED OVARIAN CYST, LEFT SIDE 12/14/2018 BELINDA GRAJEDA Ot R10.11 RIGHT UPPER QUADRANT PAIN 12/14/2018 BELINDA GRAJEDA Ot Z79.52 RESIDENTIAL (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 SYSTEMIC STER 12/14/2018 BELINDA GRAJEDA Ot Z88.0 ALLERGY STATUS TO PENICILLIN 12/14/2018 BELINDA GRAJEDA Ot Z88.2 ALLERGY STATUS TO SULFONAMIDES STATUS 12/14/2018 BELINDA GRAJEDA Ot Z96.22 MYRINGOTOMY TUBE(S) STATUS 12/31/2018 KAYODE BUNN DO Ot N83.2 0 UNSPECIFIED OVARIAN CYSTS 12/31/2018 KAYODE BUNN DO C Ot R10.1 1 RIGHT UPPER QUADRANT PAIN 02/18/2019 BELINDA GRAJEDA Ot J18.1 LOBAR PNEUMONIA, UNSPECIFIED ORGANISM 02/18/2019 BELINDA GRAJEDA Ot J45.909 UNSPECIFIED ASTHMA, UNCOMPLICATED 02/18/2019 BELINDA GRAJEDA Ot K21.9 GASTRO-ESOPHAGEAL REFLUX DISEASE WITHOUT 02/18/2019 BELINDA GRAJEDA Ot K58.9 IRRITABLE BOWEL SYNDROME WITHOUT DIARRHE 02/18/2019 BELINDA GRAJEDA Ot K59.00 CONSTIPATION, UNSPECIFIED 02/18/2019 BELINDA GRAJEDA Ot N83.202 UNSPECIFIED OVARIAN CYST, LEFT SIDE 02/18/2019 BELINDA GRAJEDA Ot R10.11 RIGHT UPPER QUADRANT PAIN 02/18/2019 BELINDA GRAJEDA Ot 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 02/18/2019 BELINDA GRAJEDA Ot Z88.0 ALLERGY STATUS TO PENICILLIN 02/18/2019 BELINDA GRAJEDA Ot Z88.2 ALLERGY STATUS TO SULFONAMIDES STATUS 02/18/2019 BELINDA GRAJEDA Ot Z96.22 MYRINGOTOMY TUBE(S) STATUS 03/19/2019 NAKUL ZEPEDAP Ot J45.909 UNSPECIFIED ASTHMA, UNCOMPLICATED 03/19/2019 NAKUL ZEPEDA FLOOR MOLDER Ot K21.9 GASTRO-ESOPHAGEAL REFLUX DISEASE WITHOUT 03/19/2019 KATELYN, NAKUL FLOOR MOLDER Ot K58.9 IRRITABLE BOWEL SYNDROME WITHOUT DIARRHE 03/19/2019 NAKUL ZEPEDAP Ot K62.5 HEMORRHAGE OF ANUS AND RECTUM 03/19/2019 KATELYN NAKUL FLOOR MOLDER Ot Z87.19 PERSONAL HISTORY OF OTHER DISEASES OF TH 03/19/2019 NAKUL ZEPEDA FLOOR MOLDER Ot Z88.0 ALLERGY STATUS TO PENICILLIN 03/19/2019 KATELYN NAKUL FLOOR MOLDER Ot Z88.2 ALLERGY STATUS TO SULFONAMIDES STATUS 03/21/2019 LEO MOSER 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 Ot H02.89 OTHER SPECIFIED DISORDERS OF EYELID 03/21/2019 LEO MOSER 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 Ot J45.909 UNSPECIFIED ASTHMA, UNCOMPLICATED 03/21/2019 LEO MOSER 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 Ot K21 .9 GASTRO-ESOPHAGEAL REFLUX DISEASE WITHOUT 03/21/2019 LEO MOSER 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 Ot K58 .9 IRRITABLE BOWEL SYNDROME WITHOUT DIARRHE 03/21/2019 LEO MOSER 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 Ot Z88 .0 ALLERGY STATUS TO PENICILLIN 03/21/2019 LEO MOSER 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 Ot Z88 .2 ALLERGY STATUS TO SULFONAMIDES STATUS 03/25/2019 NAKUL ZEPEDA FLOOR MOLDER Ot J45.909 UNSPECIFIED ASTHMA, UNCOMPLICATED 03/25/2019 NAKUL ZEPEDA FLOOR MOLDER Ot K21.9 GASTRO-ESOPHAGEAL REFLUX DISEASE WITHOUT 03/25/2019 KATELYN, NAKUL FLOOR MOLDER Ot K58.9 IRRITABLE BOWEL SYNDROME WITHOUT DIARRHE 03/25/2019 NAKUL ZEPEDAP Ot K62.5 HEMORRHAGE OF ANUS AND RECTUM 03/25/2019 NAKUL ZEPEDAP Ot Z87.19 PERSONAL HISTORY OF OTHER DISEASES OF TH 03/25/2019 NAKUL ZEPEDA Ot Z88.0 ALLERGY STATUS TO PENICILLIN 03/25/2019 NAKUL ZEPEDAP Ot Z88.2 ALLERGY STATUS TO SULFONAMIDES STATUS 03/31/2019 SOFY DO MESHA B Ot B96.8 1 HELICOBACTER PYLORI THE CAUSE OF DISE 03/31/2019 ROBERTMAN DO, MESHA B Ot K29.5 0 UNSPECIFIED CHRONIC GASTRITIS WITHOUT BL 04/08/2019 ROBERTMAN DO, MESHA B Ot B96.8 1 HELICOBACTER PYLORI THE CAUSE OF DISE 04/08/2019 ROBERTMAN DO, MESHA B Ot K29.5 0 UNSPECIFIED CHRONIC GASTRITIS WITHOUT BL 04/17/2019 KAYODE BUNN DO Ot N83.2 0 UNSPECIFIED OVARIAN CYSTS 04/17/2019 KAYODE BUNN DO Ot R10.1 1 RIGHT UPPER QUADRANT PAIN 04/17/2019 SOFY DO, MESHA B Ot Z11.2 ENCOUNTER FOR SCREENING FOR OTHER BACTER 04/17/2019 ROBERTMAN DO, MESHA B Ot B96.8 1 HELICOBACTER PYLORI THE CAUSE OF DISE 04/17/2019 ROBERTMAN DO, MESHA B Ot K29.5 0 UNSPECIFIED CHRONIC GASTRITIS WITHOUT BL 04/18/2019 ROBERTMAN DO, MESHA B Ot Z01.8 18 ENCOUNTER FOR OTHER PREPROCEDURAL EXAMIN 04/18/2019 DELMAN DO, MESHA B Ot Z01.8 18 ENCOUNTER FOR OTHER PREPROCEDURAL EXAMIN 04/18/2019 DELMAN DO, MESHA B Ot Z01.8 18 ENCOUNTER FOR OTHER PREPROCEDURAL EXAMIN 04/18/2019 DELMAN DO, MESHA B Ot B96.8 1 HELICOBACTER PYLORI THE CAUSE OF DISE 04/18/2019 DELMAN DO, MESHA B Ot K29.5 0 UNSPECIFIED CHRONIC GASTRITIS WITHOUT BL 04/18/2019 DELMAN DO, MSEHA B Ot Z01.8 18 ENCOUNTER FOR OTHER PREPROCEDURAL EXAMIN 04/18/2019 DELMAN DO, MESHA B Ot Z01.8 18 ENCOUNTER FOR OTHER PREPROCEDURAL EXAMIN 04/24/2019 DELMAN DO MESHA B Ot Z01.8 18 ENCOUNTER FOR OTHER PREPROCEDURAL EXAMIN 04/25/2019 MESHA GOETZ DO Ot B96.8 1 HELICOBACTER PYLORI THE CAUSE OF DISE 04/25/2019 MESHA GOETZ DO B Ot J31.0 CHRONIC RHINITIS 04/25/2019 ROQUE GOETZ DOIC B Ot J45.9 09 UNSPECIFIED ASTHMA, UNCOMPLICATED 04/25/2019 ROQUE GOETZ DOIC B Ot K21.9 GASTRO-ESOPHAGEAL REFLUX DISEASE WITHOUT 04/25/2019 ROQUE GOETZ DOIC B Ot K29.5 0 UNSPECIFIED CHRONIC GASTRITIS WITHOUT BL 04/25/2019 ROQUE GOETZ DOIC B Ot K58.9 IRRITABLE BOWEL SYNDROME WITHOUT DIARRHE 04/25/2019 MESHA GOETZ DO B Ot K59.0 0 CONSTIPATION, UNSPECIFIED 04/25/2019 MESHA GOETZ DO B Ot K60.2 ANAL FISSURE, UNSPECIFIED 04/25/2019 MESHA GOETZ DO B Ot K62.8 9 OTHER SPECIFIED DISEASES OF ANUS AND REC 04/25/2019 MESHA GOETZ DO Ot Z82.3 FAMILY HISTORY OF STROKE 04/25/2019 MESHA GOETZ DO Ot Z82.4 9 FAMILY HX OF ISCHEM HEART DIS AND OTH DI 04/25/2019 MESHA GOETZ DO Ot Z83.3 FAMILY HISTORY OF DIABETES MELLITUS 04/25/2019 MESHA GOETZ DO Ot Z86.5 9 PERSONAL HISTORY OF OTHER MENTAL AND BEH 04/25/2019 MESHA GOETZ DO B Ot Z88.0 ALLERGY STATUS TO PENICILLIN 04/25/2019 MESHA GOETZ DO B Ot Z88.2 ALLERGY STATUS TO SULFONAMIDES STATUS 05/01/2019 MESHA GOETZ DO B Ot B96.8 1 HELICOBACTER PYLORI THE CAUSE OF DISE 05/01/2019 MESHA GOETZ DO B Ot J31.0 CHRONIC RHINITIS 05/01/2019 MESHA GOETZ DO B Ot J45.9 09 UNSPECIFIED ASTHMA, UNCOMPLICATED 05/01/2019 ROQUE GOETZ DOIC B Ot K21.9 GASTRO-ESOPHAGEAL REFLUX DISEASE WITHOUT 05/01/2019 ROQUE GOETZ DOIC B Ot K29.5 0 UNSPECIFIED CHRONIC GASTRITIS WITHOUT BL 05/01/2019 ROQUE GOETZ DOIC B Ot K58.9 IRRITABLE BOWEL SYNDROME WITHOUT DIARRHE 05/01/2019 ROQUE GOETZ DOIC B Ot K59.0 0 CONSTIPATION, UNSPECIFIED 05/01/2019 MESHA GOETZ DO Ot K60.2 ANAL FISSURE, UNSPECIFIED 05/01/2019 ROQUE GOETZ DOIC B Ot K62.8 9 OTHER SPECIFIED DISEASES OF ANUS AND REC 05/01/2019 ROQUE GOETZ DOIC B Ot Z82.3 FAMILY HISTORY OF STROKE 05/01/2019 MESHA GOETZ DO Ot Z82.4 9 FAMILY HX OF ISCHEM HEART DIS AND OTH DI 05/01/2019 MESHA GOETZ DO Ot Z83.3 FAMILY HISTORY OF DIABETES MELLITUS 05/01/2019 MESHA GOETZ DO Ot Z86.5 9 PERSONAL HISTORY OF OTHER MENTAL AND BEH 05/01/2019 MESHA GOETZ DO Ot Z88.0 ALLERGY STATUS TO PENICILLIN 05/01/2019 MESHA GOETZ DO B Ot Z88.2 ALLERGY STATUS TO SULFONAMIDES STATUS 06/01/2019 MESHA GOETZ DO Ot Z11.2 ENCOUNTER FOR SCREENING FOR OTHER BACTER 06/02/2019 ROQUE GOETZ DOIC B Ot Z11.2 ENCOUNTER FOR SCREENING FOR OTHER BACTER 06/02/2019 MESHA GOETZ DO B Ot Z11.2 ENCOUNTER FOR SCREENING FOR OTHER BACTER 06/07/2019 MESHA GOETZ DO Ot Z11.2 ENCOUNTER FOR SCREENING FOR OTHER BACTER 06/18/2019 MESHA GOETZ DO B Ot A04.8 OTHER SPECIFIED BACTERIAL INTESTINAL INF 06/18/2019 EDDA SOARES, [place] Joel Ot E86.1 HYPOVOLEMIA 06/18/2019 EDDA SOARES, [place] Joel Ot J45.909 UNSPECIFIED ASTHMA, UNCOMPLICATED 06/18/2019 AUSTIN BAÑUELOS MD Ot K21.9 GASTRO-ESOPHAGEAL REFLUX DISEASE WITHOUT 06/18/2019 AUSTIN BAÑUELOS MD Ot K58.9 IRRITABLE BOWEL SYNDROME WITHOUT DIARRHE 06/18/2019 AUSTIN BAÑUELOS MD Ot K59.00 CONSTIPATION, UNSPECIFIED 06/18/2019 AUSTIN BAÑUELOS MD Ot O26.891 OTH RELATED CONDITIONS, FIRST 06/18/2019 AUSTIN BAÑUELOS MD Ot O99.281 ENDO, NUTRITIONAL AND METAB DISEASES COM 06/18/2019 AUSTIN BAÑUELOS MD Ot O99.511 DISEASES OF THE RESP SYS COMP , 06/18/2019 AUSTIN BAÑUELOS MD Ot O99.611 DISEASES OF THE DGSTV SYS COMP 06/18/2019 AUSTIN BAÑUELOS MD Ot R10.2 PELVIC AND PERINEAL PAIN 06/18/2019 AUSTIN BAÑUELOS MD Ot R30.0 DYSURIA 06/18/2019 AUSTIN BAÑUELOS MD, Ot R50.9 FEVER, UNSPECIFIED 06/18/2019 AUSTIN BAÑUELOS MD, Ot Z3A.10 10 WEEKS GESTATION OF 06/18/2019 AUSTIN BAÑUELOS MD, Ot Z79.51 RESIDENTIAL (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 INHALED STERO 06/18/2019 AUSTIN BAÑUELOS MD, Ot Z87.891 PERSONAL HISTORY OF NICOTINE DEPENDENCE 06/18/2019 AUSTIN BAÑUELOS MD, Ot Z88.0 ALLERGY STATUS TO PENICILLIN 06/18/2019 AUSTIN BAÑUELOS MD Ot Z88.2 ALLERGY STATUS TO SULFONAMIDES STATUS 06/24/2019 AUSTIN BAÑUELOS MD Ot E86.1 HYPOVOLEMIA 06/24/2019 AUSTIN BAÑUELOS MD Ot J45.909 UNSPECIFIED ASTHMA, UNCOMPLICATED 06/24/2019 AUSTIN BAÑUELOS MD Ot K21.9 GASTRO-ESOPHAGEAL REFLUX DISEASE WITHOUT 06/24/2019 AUSTIN BAÑUELOS MD Ot K58.9 IRRITABLE BOWEL SYNDROME WITHOUT DIARRHE 06/24/2019 AUSTIN BAÑUELOS MD Ot K59.00 CONSTIPATION, UNSPECIFIED 06/24/2019 AUSTIN BAÑUELOS MD Ot O26.891 OTH RELATED CONDITIONS, FIRST 06/24/2019 AUSTIN BAUÑELOS MD Ot O99.281 ENDO, NUTRITIONAL AND METAB DISEASES COM 06/24/2019 AUSTIN BAÑUELOS MD Ot O99.511 DISEASES OF THE RESP SYS COMP , 06/24/2019 AUSTIN BAÑUELOS MD Ot O99.611 DISEASES OF THE DGSTV SYS COMP 06/24/2019 AUSTIN BAÑUELOS MD Ot R10.2 PELVIC AND PERINEAL PAIN 06/24/2019 AUSTIN BAÑUELOS MD Ot R30.0 DYSURIA 06/24/2019 AUSTIN BAÑUELOS MD, Ot R50.9 FEVER, UNSPECIFIED 06/24/2019 AUSTIN BAÑUELOS MD, Ot Z3A.10 10 WEEKS GESTATION OF 06/24/2019 AUSTIN BAÑUELOS MD Ot Z79.51 RESIDENTIAL (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 INHALED STERO 06/24/2019 AUSTIN BAÑUELOS MD, Ot Z87.891 PERSONAL HISTORY OF NICOTINE DEPENDENCE 06/24/2019 AUSTIN BAÑUELOS MD, Ot Z88.0 ALLERGY STATUS TO PENICILLIN 06/24/2019 AUSTIN BAÑUELOS MD Ot Z88.2 ALLERGY STATUS TO SULFONAMIDES STATUS 06/26/2019 MESHA GOETZ DO B Ot A04.8 OTHER SPECIFIED BACTERIAL INTESTINAL INF 06/27/2019 MESHA GOETZ DO B Ot A04.8 OTHER SPECIFIED BACTERIAL INTESTINAL INF 06/27/2019 MESHA GOETZ DO B Ot A04.8 OTHER SPECIFIED BACTERIAL INTESTINAL INF 08/22/2019 MESHA GOETZ DO B Ot B96.8 1 HELICOBACTER PYLORI THE CAUSE OF DISE 08/22/2019 MESHA GOETZ DO B Ot J31.0 CHRONIC RHINITIS 08/22/2019 MESHA GOETZ DO B Ot J45.9 09 UNSPECIFIED ASTHMA, UNCOMPLICATED 08/22/2019 MESHA GOETZ DO B Ot K21.9 GASTRO-ESOPHAGEAL REFLUX DISEASE WITHOUT 08/22/2019 ROQUE GOETZ DOIC B Ot K29.5 0 UNSPECIFIED CHRONIC GASTRITIS WITHOUT BL 08/22/2019 MESHA GOETZ DO B Ot K58.9 IRRITABLE BOWEL SYNDROME WITHOUT DIARRHE 08/22/2019 MESHA GOETZ DO B Ot K59.0 0 CONSTIPATION, UNSPECIFIED 08/22/2019 MESHA GOETZ DO B Ot K60.2 ANAL FISSURE, UNSPECIFIED 08/22/2019 MESHA GOETZ DO B Ot K62.8 9 OTHER SPECIFIED DISEASES OF ANUS AND REC 08/22/2019 MESHA GOETZ DO B Ot Z82.3 FAMILY HISTORY OF STROKE 08/22/2019 SOFY CARMICHAELMESHA Ot Z82.4 9 FAMILY HX OF ISCHEM HEART DIS AND OTH DI 08/22/2019 SOFY CARMICHAELMESHA Ot Z83.3 FAMILY HISTORY OF DIABETES MELLITUS 08/22/2019 SOFY CARMICHAELMESHA Ot Z86.5 9 PERSONAL HISTORY OF OTHER MENTAL AND BEH 08/22/2019 SOFY CARMICHAELMESHA Ot Z88.0 ALLERGY STATUS TO PENICILLIN 08/22/2019 SOFY CARMICHAELMESHA Ot Z88.2 ALLERGY STATUS TO SULFONAMIDES STATUS 10/30/2019 RIAN LAWLER MD, Ot O26.899 OTSeveriano RELATED CONDITIONS, UNSPEC 10/30/2019 RIAN LAWLER MD, Ot R10.2 PELVIC AND PERINEAL PAIN 10/30/2019 RIAN LAWLER MD, Ot Z3A.00 WEEKS OF GESTATION OF NOT SPEC 11/02/2019 RIAN LAWLER MD, Ot O26.899 OTSeveriano RELATED CONDITIONS, UNSPEC 11/02/2019 RIAN LAWLER MD, Ot R10.2 PELVIC AND PERINEAL PAIN 11/02/2019 RIAN LAWLER MD, Ot Z3A.00 WEEKS OF GESTATION OF NOT SPEC 11/03/2019 RIAN LAWLER MD, Ot O26.899 OTSeveriano RELATED CONDITIONS, UNSPEC 11/03/2019 RIAN LAWLER MD, Ot R10.2 PELVIC AND PERINEAL PAIN 11/03/2019 RIAN LAWLER MD, Ot Z3A.00 WEEKS OF GESTATION OF NOT SPEC 11/24/2019 SEALS DO, MALATHI E Ot O21.9 VOMITING OF , UNSPECIFIED 11/24/2019 SEALS DO, MALATHI E Ot Z3A.3 3 33 WEEKS GESTATION OF 11/26/2019 SEALS DO, MALATHI E Ot O21.9 VOMITING OF , UNSPECIFIED 11/26/2019 SEALS DO, MALATHI E Ot Z3A.3 3 33 WEEKS GESTATION OF 12/08/2019 RIAN LAWLER MD, Ot O26.893 OTSeveriano RELATED CONDITIONS, THIRD 12/08/2019 RIAN LAWLER MD, Ot R39.9 UNSP SYMPTOMS AND SIGNS INVOLVING THE GE 12/08/2019 RIAN LAWLER MD, Ot Z3A.35 35 WEEKS GESTATION OF 12/10/2019 RIAN LAWLER MD, Ot O26.893 OT RELATED CONDITIONS, THIRD 12/10/2019 RIAN LAWLER MD, Ot R39.9 UNSP SYMPTOMS AND SIGNS INVOLVING THE GE 12/10/2019 RIAN LAWLER MD, Ot Z3A.35 35 WEEKS GESTATION OF Procedures Code Description [place] [address] STRE P A (IN-HOUSE) 08/19/2014 39713 THER APUTIC INJ SQ/IM 10/20/2014 J3420 B12 VITAMIN INJECTION 10/20/2014 Results Test Result Range Complete blood count (CBC) with automate d white blood cell (WBC) differential - 07/17/16 14:51 Blood leukocytes automated count (number/volume) 5.5 10*3/uL 4.3-11.0 Blood erythrocytes automated count (number/volume) 4.48 10*6/uL 4.35-5.85 Venous blood hemoglobin measurement (mass/volume) 13.4 g/dL 11.5-16.0 Blood hematocrit (volume fraction) 40 % 35-52 Automated erythrocyte mean corpuscular volume 88 [ foz_us] 80-99 Automated erythrocyte mean corpuscular h emoglobin (mass per erythrocyte) 30 pg 25-34 Automated erythrocyte mean corpuscular h emoglobin concentration measurement (mass/volume) 34 g/dL 32-36 Automated erythrocyte distribution width ratio 12. 4 % 10.0- 14.5 Automated blood platelet count (count/volume) 167 10*3/uL [...] 10*3 1.0-4.0 Blood monocytes automated count (number/volume) 0. 5 10*3 0.0-1.0 Automated eosinophil count 0.1 10*3/uL 0 .0-0.3 Automated blood basophil count (count/volume) 0.0 10*3/uL 0.0-0.1 Complete urinalysis with reflex to cultu re - 07/21/16 12:40 Urine color determination YELLOW NRG Urine clarity determination CLEAR NR G Urine pH measurement by test strip 5 5-9 Specific gravity of urine by test strip 1.020 1.016-1.022 Urine protein assay by test strip, semi-quantitative NEGATIVE NEGATIVE Urine glucose detection by automated test strip NE GATIVE NEGATIVE Erythrocytes detection in urine sediment by light micr oscopy 1+ NEGATIVE Urine ketones detection by automated test strip NE GATIVE NEGATIVE Urine nitrite detection by test strip NEGATIVE NEGATIVE Urine total bilirubin detection by test strip NEGA TIVE NEGATIVE Urine urobilinogen measurement by automated test strip (mass/volume) NORMAL NORMAL Urine leukocyte esterase detection by dipstick NEG ATIVE NEGATIVE Automated urine sediment erythrocyte cou nt by microscopy (number/high power field) RARE NRG Automated urine sediment leukocyte count by microscopy (number/high power field) RARE NRG Bacteria detection in urine sediment by light microsco py TRACE NRG Squamous epithelial cells detection in u rine sediment by light microscopy 10-25 NRG Crystals detection in urine sediment by light microsco py NONE NRG Casts detection in urine sediment by light microscopy NONE NRG Mucus detection in urine sediment by light microscopy NEGATIVE NRG Complete urinalysis with reflex to culture NO NRG Complete blood count (CBC) with automate d white blood cell (WBC) differential - 07/21/16 13:25 Blood leukocytes automated count (number/volume) 6.9 10*3/uL 4.3-11.0 Blood erythrocytes automated count (number/volume) 4.42 10*6/uL 4.35-5.85 Venous blood hemoglobin measurement (mass/volume) 13.5 g/dL 11.5-16.0 Blood hematocrit (volume fraction) 39 % 35-52 Automated erythrocyte mean corpuscular volume 88 [ foz_us] 80-99 Automated erythrocyte mean corpuscular h emoglobin (mass per erythrocyte) 31 pg 25-34 Automated erythrocyte mean corpuscular h emoglobin concentration measurement (mass/volume) 35 g/dL 32-36 Automated erythrocyte distribution width ratio 12. 4 % 10.0- 14.5 Automated blood platelet count (count/volume) 183 10*3/uL [...] 10*3 1.0-4.0 Blood monocytes automated count (number/volume) 0. 5 10*3 0.0-1.0 Automated eosinophil count 0.0 10*3/uL 0 .0-0.3 Automated blood basophil count (count/volume) 0.0 10*3/uL 0.0-0.1 Comprehensive metabolic panel - 07/21/16 13:25 Serum or plasma sodium measurement (moles/volume) 137 mmol/L 135-145 Serum or plasma potassium measurement (moles/volume) 4.3 mmol/L 3.6-5.0 Serum or plasma chloride measurement (moles/volume) 108 mmol/L 98-107 Carbon dioxide 21 mmol/L 21-32 Serum or plasma anion gap determination (moles/volume) 8 mmol/L 5-14 Serum or plasma urea nitrogen measurement (mass/volume ) 8 mg/dL 7-18 Serum or plasma creatinine measurement (mass/volume) 0.64 mg/dL 0.60-1.30 Serum or plasma urea nitrogen/creatinine mass ratio 13 NRG Serum or plasma creatinine measurement w ith calculation of estimated glomerular filtration rate > NRG Serum or plasma glucose measurement (mass/volume) 83 mg/dL 70-105 Serum or plasma calcium measurement (mass/volume) 8.8 mg/dL 8.5-10.1 Serum or plasma total bilirubin measurement (mass/volu me) 0.4 mg/dL 0.1-1.0 Serum or plasma alkaline phosphatase timothy surement (enzymatic activity/volume) 52 U/L 40-136 Serum or plasma aspartate aminotransfera se measurement (enzymatic activity/volume) 24 U/L 5-34 Serum or plasma alanine aminotransferase measurement (enzymatic activity/volume) 16 U/L 0-55 Serum or plasma protein measurement (mass/volume) 6.8 g/dL 6.4-8.2 Serum or plasma albumin measurement (mass/volume) 4.2 g/dL 3.2-4.5 Urine beta human chorionic gonadotropin (hCG) measurement - 08/30/16 05:55 Urine beta human chorionic gonadotropin (hCG) measurem ent NEGATIVE NEGATIVE Complete urinalysis with reflex to cultu re - 08/30/16 05:55 Urine color determination YELLOW NRG Urine clarity determination CLEAR NR G Urine pH measurement by test strip 7 5-9 Specific gravity of urine by test strip 1.010 1.016-1.022 Urine protein assay by test strip, semi-quantitative NEGATIVE NEGATIVE Urine glucose detection by automated test strip NE GATIVE NEGATIVE Erythrocytes detection in urine sediment by light micr oscopy NEGATIVE NEGATIVE Urine ketones detection by automated test strip 2+ NEGATIVE Urine nitrite detection by test strip NEGATIVE NEGATIVE Urine total bilirubin detection by test strip NEGA TIVE NEGATIVE Urine urobilinogen measurement by automated test strip (mass/volume) NORMAL NORMAL Urine leukocyte esterase detection by dipstick NEG ATIVE NEGATIVE Automated urine sediment erythrocyte cou nt by microscopy (number/high power field) NONE NRG Automated urine sediment leukocyte count by microscopy (number/high power field) NONE NRG Bacteria detection in urine sediment by light microsco py FEW NRG Squamous epithelial cells detection in u rine sediment by light microscopy 10-25 NRG Crystals detection in urine sediment by light microsco py NONE NRG Casts detection in urine sediment by light microscopy NONE NRG Mucus detection in urine sediment by light microscopy NEGATIVE NRG Complete urinalysis with reflex to culture NO NRG Bacteria identification in genital speci men by aerobe culture - 08/30/16 07:28 Bacteria identification in genital specimen by aerobe culture NORMAL NRG Microscopic examination by wet preparati on - 08/30/16 07:28 WET PREP RESULTS NO YEAST OBSERVED, NO TRICH OMONAS OBSERVED NRG Neisseria gonorrhoeae DNA detection by p robe and signal amplification method - 08/30/16 07:28 Gonorrhea amp DNA-urine Negative Negati ve Chlamydia trachomatis DNA detection by p robe and signal amplification method - 08/30/16 07:28 Chlamydia trachomatis DNA detection by p robe and target amplification method Negative Negative Complete urinalysis with reflex to cultu re - 10/14/16 17:47 Urine color determination YELLOW NRG Urine clarity determination VERY CLOUDY NRG Urine pH measurement by test strip 5 5-9 Specific gravity of urine by test strip 1.025 1.016-1.022 Urine protein assay by test strip, semi-quantitative 2+ NEGATIVE Urine glucose detection by automated test strip NE GATIVE NEGATIVE Erythrocytes detection in urine sediment by light micr oscopy NEGATIVE NEGATIVE Urine ketones detection by automated test strip 1+ NEGATIVE Urine nitrite detection by test strip POSITIVE NEGATIVE Urine total bilirubin detection by test strip NEGA TIVE NEGATIVE Urine urobilinogen measurement by automated test strip (mass/volume) NORMAL NORMAL Urine leukocyte esterase detection by dipstick 2+ NEGATIVE Automated urine sediment erythrocyte cou nt by microscopy (number/high power field) NONE NRG Automated urine sediment leukocyte count by microscopy (number/high power field) [HPF] NRG Bacteria detection in urine sediment by light microsco py MODERATE NRG Squamous epithelial cells detection in u rine sediment by light microscopy 2-5 NRG Crystals detection in urine sediment by light microsco py PRESENT NRG Casts detection in urine sediment by light microscopy NONE NRG Mucus detection in urine sediment by light microscopy NEGATIVE NRG Complete urinalysis with reflex to culture YES NRG Calcium oxalate crystals detection in ur ine sediment by light microscopy LARGE NRG Bacterial urine culture - 10/14/16 17:47 URINE CULTURE RESULTS <10,000/ML NRG Complete blood count (CBC) with automate d white blood cell (WBC) differential - 10/14/16 18:51 Blood leukocytes automated count (number/volume) 6.8 10*3/uL 4.3-11.0 Blood erythrocytes automated count (number/volume) 4.42 10*6/uL 4.35-5.85 Venous blood hemoglobin measurement (mass/volume) 13.6 g/dL 11.5-16.0 Blood hematocrit (volume fraction) 40 % 35-52 Automated erythrocyte mean corpuscular volume 89 [ foz_us] 80-99 Automated erythrocyte mean corpuscular h emoglobin (mass per erythrocyte) 31 pg 25-34 Automated erythrocyte mean corpuscular h emoglobin concentration measurement (mass/volume) 34 g/dL 32-36 Automated erythrocyte distribution width ratio 12. 9 % 10.0- 14.5 Automated blood platelet count (count/volume) 179 10*3/uL [...] 10*3 1.0-4.0 Blood monocytes automated count (number/volume) 0. 4 10*3 0.0-1.0 Automated eosinophil count 0.0 10*3/uL 0 .0-0.3 Automated blood basophil count (count/volume) 0.0 10*3/uL 0.0-0.1 Comprehensive metabolic panel - 10/14/16 19:16 Serum or plasma sodium measurement (moles/volume) 138 mmol/L 135-145 Serum or plasma potassium measurement (moles/volume) 3.8 mmol/L 3.6-5.0 Serum or plasma chloride measurement (moles/volume) 110 mmol/L 98-107 Carbon dioxide 18 mmol/L 21-32 Serum or plasma anion gap determination (moles/volume) 10 mmol/L 5-14 Serum or plasma urea nitrogen measurement (mass/volume ) 8 mg/dL 7-18 Serum or plasma creatinine measurement (mass/volume) 0.75 mg/dL 0.60-1.30 Serum or plasma urea nitrogen/creatinine mass ratio 11 NRG Serum or plasma creatinine measurement w ith calculation of estimated glomerular filtration rate > NRG Serum or plasma glucose measurement (mass/volume) 76 mg/dL 70-105 Serum or plasma calcium measurement (mass/volume) 8.1 mg/dL 8.5-10.1 Serum or plasma total bilirubin measurement (mass/volu me) 0.4 mg/dL 0.1-1.0 Serum or plasma alkaline phosphatase timothy surement (enzymatic activity/volume) 36 U/L 40-136 Serum or plasma aspartate aminotransfera se measurement (enzymatic activity/volume) 13 U/L 5-34 Serum or plasma alanine aminotransferase measurement (enzymatic activity/volume) 9 U/L 0-55 Serum or plasma protein measurement (mass/volume) 5.9 g/dL 6.4-8.2 Serum or plasma albumin measurement (mass/volume) 4.1 g/dL 3.2-4.5 Lipase - 10/14/16 19:16 Lipase 31 U/L 8-78 Complete urinalysis with reflex to cultu re - 12/31/16 21:15 Urine color determination YELLOW NRG Urine clarity determination CLEAR NR G Urine pH measurement by test strip 8 5-9 Specific gravity of urine by test strip 1.010 1.016-1.022 Urine protein assay by test strip, semi-quantitative NEGATIVE NEGATIVE Urine glucose detection by automated test strip NE GATIVE NEGATIVE Erythrocytes detection in urine sediment by light micr oscopy NEGATIVE NEGATIVE Urine ketones detection by automated test strip NE GATIVE NEGATIVE Urine nitrite detection by test strip NEGATIVE NEGATIVE Urine total bilirubin detection by test strip NEGA TIVE NEGATIVE Urine urobilinogen measurement by automated test strip (mass/volume) NORMAL NORMAL Urine leukocyte esterase detection by dipstick NEG ATIVE NEGATIVE Automated urine sediment erythrocyte cou nt by microscopy (number/high power field) RARE NRG Automated urine sediment leukocyte count by microscopy (number/high power field) RARE NRG Bacteria detection in urine sediment by light microsco py NEGATIVE NRG Squamous epithelial cells detection in u rine sediment by light microscopy 2-5 NRG Crystals detection in urine sediment by light microsco py NONE NRG Casts detection in urine sediment by light microscopy NONE NRG Mucus detection in urine sediment by light microscopy NEGATIVE NRG Complete urinalysis with reflex to culture NO NRG Complete blood count (CBC) with automate d white blood cell (WBC) differential - 05/14/17 13:00 Blood leukocytes automated count (number/volume) 6.6 10*3/uL 4.3-11.0 Blood erythrocytes automated count (number/volume) 4.60 10*6/uL 4.35-5.85 Venous blood hemoglobin measurement (mass/volume) 14.0 g/dL 11.5-16.0 Blood hematocrit (volume fraction) 42 % 35-52 Automated erythrocyte mean corpuscular volume 91 [ foz_us] 80-99 Automated erythrocyte mean corpuscular h emoglobin (mass per erythrocyte) 30 pg 25-34 Automated erythrocyte mean corpuscular h emoglobin concentration measurement (mass/volume) 34 g/dL 32-36 Automated erythrocyte distribution width ratio 12. 6 % 10.0- 14.5 Automated blood platelet count (count/volume) 207 10*3/uL [...] 10*3 1.0-4.0 Blood monocytes automated count (number/volume) 0. 5 10*3 0.0-1.0 Automated eosinophil count 0.1 10*3/uL 0 .0-0.3 Automated blood basophil count (count/volume) 0.1 10*3/uL 0.0-0.1 Whole blood basic metabolic panel - 12/25 13:00 Serum or plasma sodium measurement (moles/volume) 142 mmol/L 135-145 Serum or plasma potassium measurement (moles/volume) 3.2 mmol/L 3.6-5.0 Serum or plasma chloride measurement (moles/volume) 111 mmol/L 98-107 Carbon dioxide 18 mmol/L 21-32 Serum or plasma anion gap determination (moles/volume) 13 mmol/L 5-14 Serum or plasma urea nitrogen measurement (mass/volume ) 9 mg/dL 7-18 Serum or plasma creatinine measurement (mass/volume) 0.72 mg/dL 0.60-1.30 Serum or plasma urea nitrogen/creatinine mass ratio 13 NRG Serum or plasma creatinine measurement w ith calculation of estimated glomerular filtration rate > NRG Serum or plasma glucose measurement (mass/volume) 102 mg/dL 70-105 Serum or plasma calcium measurement (mass/volume) 9.1 mg/dL 8.5-10.1 Complete urinalysis with reflex to cultu re - 05/14/17 13:05 Urine color determination YELLOW NRG Urine clarity determination CLEAR NR G Urine pH measurement by test strip 5 5-9 Specific gravity of urine by test strip 1.025 1.016-1.022 Urine protein assay by test strip, semi-quantitative 1+ NEGATIVE Urine glucose detection by automated test strip NE GATIVE NEGATIVE Erythrocytes detection in urine sediment by light micr oscopy NEGATIVE NEGATIVE Urine ketones detection by automated test strip NE GATIVE NEGATIVE Urine nitrite detection by test strip POSITIVE NEGATIVE Urine total bilirubin detection by test strip NEGA TIVE NEGATIVE Urine urobilinogen measurement by automated test strip (mass/volume) NORMAL NORMAL Urine leukocyte esterase detection by dipstick 1+ NEGATIVE Automated urine sediment erythrocyte cou nt by microscopy (number/high power field) NONE NRG Automated urine sediment leukocyte count by microscopy (number/high power field) [HPF] NRG Bacteria detection in urine sediment by light microsco py TRACE NRG Squamous epithelial cells detection in u rine sediment by light microscopy 2-5 NRG Crystals detection in urine sediment by light microsco py NONE NRG Casts detection in urine sediment by light microscopy NONE NRG Mucus detection in urine sediment by light microscopy NEGATIVE NRG Complete urinalysis with reflex to culture YES NRG Bacterial urine culture - 05/14/17 13:05 URINE CULTURE RESULTS <10,000/ML NRG CULTURE, GENITAL - 06/28/17 14:39 Genital Culture, Routine Final report N RG Result 1 NRG Complete urinalysis with reflex to cultu re - 07/04/17 21:26 Urine color determination YELLOW NRG Urine clarity determination CLEAR NR G Urine pH measurement by test strip 5 5-9 Specific gravity of urine by test strip 1.025 1.016-1.022 Urine protein assay by test strip, semi-quantitative NEGATIVE NEGATIVE Urine glucose detection by automated test strip NE GATIVE NEGATIVE Erythrocytes detection in urine sediment by light micr oscopy 1+ NEGATIVE Urine ketones detection by automated test strip NE GATIVE NEGATIVE Urine nitrite detection by test strip NEGATIVE NEGATIVE Urine total bilirubin detection by test strip NEGA TIVE NEGATIVE Urine urobilinogen measurement by automated test strip (mass/volume) NORMAL NORMAL Urine leukocyte esterase detection by dipstick 3+ NEGATIVE Automated urine sediment erythrocyte cou nt by microscopy (number/high power field) [HPF] NRG Automated urine sediment leukocyte count by microscopy (number/high power field) TNTC NRG Bacteria detection in urine sediment by light microsco py MODERATE NRG Squamous epithelial cells detection in u rine sediment by light microscopy 2-5 NRG Crystals detection in urine sediment by light microsco py NONE NRG Casts detection in urine sediment by light microscopy NONE NRG Mucus detection in urine sediment by light microscopy LARGE NRG Complete urinalysis with reflex to culture YES NRG Bacterial urine culture - 07/04/17 21:26 URINE CULTURE RESULTS <10,000/ML NRG Complete blood count (CBC) with automate d white blood cell (WBC) differential - 07/04/17 22:35 Blood leukocytes automated count (number/volume) 9.9 10*3/uL 4.3-11.0 Blood erythrocytes automated count (number/volume) 4.41 10*6/uL 4.35-5.85 Venous blood hemoglobin measurement (mass/volume) 13.5 g/dL 11.5-16.0 Blood hematocrit (volume fraction) 40 % 35-52 Automated erythrocyte mean corpuscular volume 90 [ foz_us] 80-99 Automated erythrocyte mean corpuscular h emoglobin (mass per erythrocyte) 31 pg 25-34 Automated erythrocyte mean corpuscular h emoglobin concentration measurement (mass/volume) 34 g/dL 32-36 Automated erythrocyte distribution width ratio 12. 8 % 10.0- 14.5 Automated blood platelet count (count/volume) 239 10*3/uL [...] 10*3 1.0-4.0 Blood monocytes automated count (number/volume) 0. 6 10*3 0.0-1.0 Automated eosinophil count 0.0 10*3/uL 0 .0-0.3 Automated blood basophil count (count/volume) 0.0 10*3/uL 0.0-0.1 Comprehensive metabolic panel - 07/04/17 22:35 Serum or plasma sodium measurement (moles/volume) 140 mmol/L 135-145 Serum or plasma potassium measurement (moles/volume) 4.0 mmol/L 3.6-5.0 Serum or plasma chloride measurement (moles/volume) 106 mmol/L 98-107 Carbon dioxide 24 mmol/L 21-32 Serum or plasma anion gap determination (moles/volume) 10 mmol/L 5-14 Serum or plasma urea nitrogen measurement (mass/volume ) 10 mg/dL 7-18 Serum or plasma creatinine measurement (mass/volume) 0.68 mg/dL 0.60-1.30 Serum or plasma urea nitrogen/creatinine mass ratio 15 NRG Serum or plasma creatinine measurement w ith calculation of estimated glomerular filtration rate > NRG Serum or plasma glucose measurement (mass/volume) 93 mg/dL 70-105 Serum or plasma calcium measurement (mass/volume) 9.5 mg/dL 8.5-10.1 Serum or plasma total bilirubin measurement (mass/volu me) 0.7 mg/dL 0.1-1.0 Serum or plasma alkaline phosphatase timothy surement (enzymatic activity/volume) 52 U/L 40-136 Serum or plasma aspartate aminotransfera se measurement (enzymatic activity/volume) 14 U/L 5-34 Serum or plasma alanine aminotransferase measurement (enzymatic activity/volume) 12 U/L 0-55 Serum or plasma protein measurement (mass/volume) 6.8 g/dL 6.4-8.2 Serum or plasma albumin measurement (mass/volume) 4.3 g/dL 3.2-4.5 Complete urinalysis with reflex to cultu re - 07/26/17 19:10 Urine color determination SUDHEER NRG Urine clarity determination CLEAR NR G Urine pH measurement by test strip 5 5-9 Specific gravity of urine by test strip 1.025 1.016-1.022 Urine protein assay by test strip, semi-quantitative 1+ NEGATIVE Urine glucose detection by automated test strip NE GATIVE NEGATIVE Erythrocytes detection in urine sediment by light micr oscopy 1+ NEGATIVE Urine ketones detection by automated test strip 2+ NEGATIVE Urine nitrite detection by test strip NEGATIVE NEGATIVE Urine total bilirubin detection by test strip NEGA TIVE NEGATIVE Urine urobilinogen measurement by automated test strip (mass/volume) NORMAL NORMAL Urine leukocyte esterase detection by dipstick 3+ NEGATIVE Automated urine sediment erythrocyte cou nt by microscopy (number/high power field) [HPF] NRG Automated urine sediment leukocyte count by microscopy (number/high power field) [HPF] NRG Bacteria detection in urine sediment by light microsco py FEW NRG Crystals detection in urine sediment by light microsco py NONE NRG Casts detection in urine sediment [...] NOTE NRG Complete urinalysis with reflex to cultu re - 12/15/17 19:28 Urine color determination YELLOW NRG Urine clarity determination SLIGHTLY CLOUDY NRG Urine pH measurement by test strip 7 5-9 Specific gravity of urine by test strip 1.010 1.016-1.022 Urine protein assay by test strip, semi-quantitative NEGATIVE NEGATIVE Urine glucose detection by automated test strip NE GATIVE NEGATIVE Erythrocytes detection in urine sediment by light micr oscopy NEGATIVE NEGATIVE Urine ketones detection by automated test strip NE GATIVE NEGATIVE Urine nitrite detection by test strip NEGATIVE NEGATIVE Urine total bilirubin detection by test strip NEGA TIVE NEGATIVE Urine urobilinogen measurement by automated test strip (mass/volume) NORMAL NORMAL Urine leukocyte esterase detection by dipstick NEG ATIVE NEGATIVE Automated urine sediment erythrocyte cou nt by microscopy (number/high power field) RARE NRG Automated urine sediment leukocyte count by microscopy (number/high power field) [HPF] NRG Bacteria detection in urine sediment by light microsco py TRACE NRG Squamous epithelial cells detection in u rine sediment by light microscopy 2-5 NRG Crystals detection in urine sediment by light microsco py PRESENT NRG Casts detection in urine sediment by light microscopy NONE NRG Mucus detection in urine sediment by light microscopy NEGATIVE NRG Complete urinalysis with reflex to culture NO NRG Amorphous sediment detection in urine sediment by ligh t microscopy FEW BONITA URATES NRG Renal epithelial cells detection in urin e sediment by light microscopy NONE NRG Complete blood count (CBC) with automate d white blood cell (WBC) differential - 12/15/17 21:10 Blood leukocytes automated count (number/volume) 5.1 10*3/uL 4.3-11.0 Blood erythrocytes automated count (number/volume) 4.14 10*6/uL 4.35-5.85 Venous blood hemoglobin measurement (mass/volume) 12.8 g/dL 11.5-16.0 Blood hematocrit (volume fraction) 36 % 35-52 Automated erythrocyte mean corpuscular volume 88 [ foz_us] 80-99 Automated erythrocyte mean corpuscular h emoglobin (mass per erythrocyte) 31 pg 25-34 Automated erythrocyte mean corpuscular h emoglobin concentration measurement (mass/volume) 35 g/dL 32-36 Automated erythrocyte distribution width ratio 12. 4 % 10.0- 14.5 Automated blood platelet count (count/volume) 225 10*3/uL [...] 10*3 1.0-4.0 Blood monocytes automated count (number/volume) 0. 6 10*3 0.0-1.0 Automated eosinophil count 0.1 10*3/uL 0 .0-0.3 Automated blood basophil count (count/volume) 0.0 10*3/uL 0.0-0.1 Comprehensive metabolic panel - 12/15/17 21:10 Serum or plasma sodium measurement (moles/volume) 135 mmol/L 135-145 Serum or plasma potassium measurement (moles/volume) 3.4 mmol/L 3.6-5.0 Serum or plasma chloride measurement (moles/volume) 104 mmol/L 98-107 Carbon dioxide 23 mmol/L 21-32 Serum or plasma anion gap determination (moles/volume) 8 mmol/L 5-14 Serum or plasma urea nitrogen measurement (mass/volume ) 8 mg/dL 7-18 Serum or plasma creatinine measurement (mass/volume) 0.67 mg/dL 0.60-1.30 Serum or plasma urea nitrogen/creatinine mass ratio 12 NRG Serum or plasma creatinine measurement w ith calculation of estimated glomerular filtration rate > NRG Serum or plasma glucose measurement (mass/volume) 84 mg/dL 70-105 Serum or plasma calcium measurement (mass/volume) 8.5 mg/dL 8.5-10.1 Serum or plasma total bilirubin measurement (mass/volu me) 0.5 mg/dL 0.1-1.0 Serum or plasma alkaline phosphatase timothy surement (enzymatic activity/volume) 59 U/L 40-136 Serum or plasma aspartate aminotransfera se measurement (enzymatic activity/volume) 18 U/L 5-34 Serum or plasma alanine aminotransferase measurement (enzymatic activity/volume) 18 U/L 0-55 Serum or plasma protein measurement (mass/volume) 6.5 g/dL 6.4-8.2 Serum or plasma albumin measurement (mass/volume) 4.3 g/dL 3.2-4.5 Lipase - 12/15/17 21:10 Lipase 39 U/L 8-78 Serum or plasma C reactive protein measu rement (mass/volume) - 12/15/17 21:10 Serum or plasma C reactive protein measurement (mass/v olume) 0.01 mg/dL 0.00-0.50 Bacteria identification in genital speci men by aerobe culture - 12/15/17 21:15 Bacteria identification in genital specimen by aerobe culture NORMAL NRG Microscopic examination by wet preparati on - 12/15/17 21:15 WET PREP RESULTS 2132 BY RT/KD NRG Neisseria gonorrhoeae DNA detection by p robe and signal amplification method - 12/15/17 21:15 Gonorrhea amp DNA-urine Not Detected No t Detected Chlamydia trachomatis DNA detection by p robe and signal amplification method - 12/15/17 21:15 Chlamydia trachomatis DNA detection by p robe and target amplification method Not Detected Not Detected CULTURE, URINE - 02/06/18 16:04 CULTURE, URINE, ROUTINE SEE NOTE NRG CULTURE, THROAT - 04/04/18 16:13 CULTURE, THROAT SEE NOTE NRG CULTURE, GENITAL - 04/04/18 16:13 CULTURE, GENITAL SEE NOTE NRG SUREPATH PAP RFX HPV mRNA E6/E7 - 16:13 CLINICAL INFORMATION: NRG LMP: 03/21/18 NRG PREV. PAP: NONE NRG PREV. BX: NRG SOURCE: Cervix NRG STATEMENT OF ADEQUACY: NRG INTERPRETATION/RESULT: NRG SCHOOL PSYCHOLOGIST: NRG INFECTION: NRG COMMENT NRG Complete urinalysis with reflex to cultu re - 06/09/18 21:15 Urine color determination YELLOW NRG Urine clarity determination SLIGHTLY CLOUDY NRG Urine pH measurement by test strip 8 5-9 Specific gravity of urine by test strip 1.010 1.016-1.022 Urine protein assay by test strip, semi-quantitative 1+ NEGATIVE Urine glucose detection by automated test strip NE GATIVE NEGATIVE Erythrocytes detection in urine sediment by light micr oscopy NEGATIVE NEGATIVE Urine ketones detection by automated test strip NE GATIVE NEGATIVE Urine nitrite detection by test strip NEGATIVE NEGATIVE Urine total bilirubin detection by test strip NEGA TIVE NEGATIVE Urine urobilinogen measurement by automated test strip (mass/volume) NORMAL NORMAL Urine leukocyte esterase detection by dipstick 1+ NEGATIVE Automated urine sediment erythrocyte cou nt by microscopy (number/high power field) NONE NRG Automated urine sediment leukocyte count by microscopy (number/high power field) [HPF] NRG Bacteria detection in urine sediment by light microsco py LARGE NRG Squamous epithelial cells detection in u rine sediment by light microscopy 2-5 NRG Crystals detection in urine sediment by light microsco py NONE NRG Casts detection in urine sediment by light microscopy NONE NRG Mucus detection in urine sediment by light microscopy MODERATE NRG Complete urinalysis with reflex to culture YES NRG Bacterial urine culture - 06/09/18 21:15 Bacterial urine culture NG NRG Complete blood count (CBC) with automate d white blood cell (WBC) differential - 06/09/18 21:20 Blood leukocytes automated count (number/volume) 10.1 10*3/uL 4.3-11.0 Blood erythrocytes automated count (number/volume) 4.33 10*6/uL 4.35-5.85 Venous blood hemoglobin measurement (mass/volume) 13.6 g/dL 11.5-16.0 Blood hematocrit (volume fraction) 39 % 35-52 Automated erythrocyte mean corpuscular volume 89 [ foz_us] 80-99 Automated erythrocyte mean corpuscular h emoglobin (mass per erythrocyte) 31 pg 25-34 Automated erythrocyte mean corpuscular h emoglobin concentration measurement (mass/volume) 35 g/dL 32-36 Automated erythrocyte distribution width ratio 12. 6 % 10.0- 14.5 Automated blood platelet count (count/volume) 204 10*3/uL [...] 10*3 1.0-4.0 Blood monocytes automated count (number/volume) 0. 8 10*3 0.0-1.0 Automated eosinophil count 0.1 10*3/uL 0 .0-0.3 Automated blood basophil count (count/volume) 0.0 10*3/uL 0.0-0.1 Comprehensive metabolic panel - 06/09/18 21:20 Serum or plasma sodium measurement (moles/volume) 138 mmol/L 135-145 Serum or plasma potassium measurement (moles/volume) 4.1 mmol/L 3.6-5.0 Serum or plasma chloride measurement (moles/volume) 104 mmol/L 98-107 Carbon dioxide 22 mmol/L 21-32 Serum or plasma anion gap determination (moles/volume) 12 mmol/L 5-14 Serum or plasma urea nitrogen measurement (mass/volume ) 12 mg/dL 7-18 Serum or plasma creatinine measurement (mass/volume) 0.69 mg/dL 0.60-1.30 Serum or plasma urea nitrogen/creatinine mass ratio 17 NRG Serum or plasma creatinine measurement w ith calculation of estimated glomerular filtration rate > NRG Serum or plasma glucose measurement (mass/volume) 96 mg/dL 70-105 Serum or plasma calcium measurement (mass/volume) 9.3 mg/dL 8.5-10.1 Serum or plasma total bilirubin measurement (mass/volu me) 0.3 mg/dL 0.1-1.0 Serum or plasma alkaline phosphatase timothy surement (enzymatic activity/volume) 84 U/L 40-136 Serum or plasma aspartate aminotransfera se measurement (enzymatic activity/volume) 25 U/L 5-34 Serum or plasma alanine aminotransferase measurement (enzymatic activity/volume) 15 U/L 0-55 Serum or plasma protein measurement (mass/volume) 7.6 g/dL 6.4-8.2 Serum or plasma albumin measurement (mass/volume) 4.6 g/dL 3.2-4.5 Lipase - 06/09/18 21:20 Lipase 70 U/L 8-78 Serum or plasma choriogonadotropin (preg brandon test) detection - 06/09/18 21:20 Serum or plasma choriogonadotropin ( test) de tection NEGATIVE NEGATIVE Complete urinalysis with reflex to cultu re - 08/05/18 17:08 Urine color determination YELLOW NRG Urine clarity determination CLEAR NR G Urine pH measurement by test strip 8 5-9 Specific gravity of urine by test strip 1.010 1.016-1.022 Urine protein assay by test strip, semi-quantitative 1+ NEGATIVE Urine glucose detection by automated test strip NE GATIVE NEGATIVE Erythrocytes detection in urine sediment by light micr oscopy NEGATIVE NEGATIVE Urine ketones detection by automated test strip NE GATIVE NEGATIVE Urine nitrite detection by test strip NEGATIVE NEGATIVE Urine total bilirubin detection by test strip NEGA TIVE NEGATIVE Urine urobilinogen measurement by automated test strip (mass/volume) NORMAL NORMAL Urine leukocyte esterase detection by dipstick 1+ NEGATIVE Automated urine sediment erythrocyte cou nt by microscopy (number/high power field) NONE NRG Automated urine sediment leukocyte count by microscopy (number/high power field) [HPF] NRG Bacteria detection in urine sediment by light microsco py FEW NRG Squamous epithelial cells detection in u rine sediment by light microscopy 2-5 NRG Crystals detection in urine sediment by light microsco py NONE NRG Casts detection in urine sediment by light microscopy NONE NRG Mucus detection in urine sediment by light microscopy NEGATIVE NRG Complete urinalysis with reflex to culture YES NRG Bacterial urine culture - 08/05/18 17:08 Bacterial urine culture SEE REPORT NRG COLONY COUNT . NRG Influenza virus A and B antigen detectio n - 08/31/18 17:49 FLU RESULT NEGATIVE FOR INFLUENZA A AND B ANTIGENS BY IA NRG Complete urinalysis with reflex to cultu re - 11/02/18 19:43 Urine color determination YELLOW NRG Urine clarity determination VERY CLOUDY NRG Urine pH measurement by test strip 7 5-9 Specific gravity of urine by test strip 1.010 1.016-1.022 Urine protein assay by test strip, semi-quantitative 2+ NEGATIVE Urine glucose detection by automated test strip NE GATIVE NEGATIVE Erythrocytes detection in urine sediment by light micr oscopy 1+ NEGATIVE Urine ketones detection by automated test strip NE GATIVE NEGATIVE Urine nitrite detection by test strip NEGATIVE NEGATIVE Urine total bilirubin detection by test strip NEGA TIVE NEGATIVE Urine urobilinogen measurement by automated test strip (mass/volume) 1 mg/dL NORMAL Urine leukocyte esterase detection by dipstick 2+ NEGATIVE Automated urine sediment erythrocyte cou nt by microscopy (number/high power field) RARE NRG Automated urine sediment leukocyte count by microscopy (number/high power field) [HPF] NRG Bacteria detection in urine sediment by light microsco py MODERATE NRG Squamous epithelial cells detection in u rine sediment by light microscopy 5-10 NRG Crystals detection in urine sediment by light microsco py NONE NRG Casts detection in urine sediment by light microscopy NONE NRG Mucus detection in urine sediment by light microscopy LARGE NRG Complete urinalysis with reflex to culture NO NRG Complete blood count (CBC) with automate d white blood cell (WBC) differential - 11/02/18 19:59 Blood leukocytes automated count (number/volume) 7.8 10*3/uL 4.3-11.0 Blood erythrocytes automated count (number/volume) 3.96 10*6/uL 4.35-5.85 Venous blood hemoglobin measurement (mass/volume) 12.0 g/dL 11.5-16.0 Blood hematocrit (volume fraction) 35 % 35-52 Automated erythrocyte mean corpuscular volume 88 [ foz_us] 80-99 Automated erythrocyte mean corpuscular h emoglobin (mass per erythrocyte) 30 pg 25-34 Automated erythrocyte mean corpuscular h emoglobin concentration measurement (mass/volume) 34 g/dL 32-36 Automated erythrocyte distribution width ratio 12. 0 % 10.0- 14.5 Automated blood platelet count (count/volume) 213 10*3/uL 130-400 Automated blood platelet mean volume measurement 9.6 [foz_us] 7.4-10.4 Automated blood neutrophils/100 leukocytes 74 % 42-75 Automated blood lymphocytes/100 leukocytes 17 % 12-44 Blood monocytes/100 leukocytes 8 % 0-12 Automated blood eosinophils/100 leukocytes 0 % 0-10 Automated blood basophils/100 leukocytes 0 % 0-10 Blood neutrophils automated count (number/volume) 5.8 10*3 1.8-7.8 Blood lymphocytes automated count (number/volume) 1.3 10*3 1.0-4.0 Blood monocytes automated count (number/volume) 0. 6 10*3 0.0-1.0 Automated eosinophil count 0.0 10*3/uL 0 .0-0.3 Automated blood basophil count (count/volume) 0.0 10*3/uL 0.0-0.1 Comprehensive metabolic panel - 11/02/18 19:59 Serum or plasma sodium measurement (moles/volume) 140 mmol/L 135-145 Serum or plasma potassium measurement (moles/volume) 3.8 mmol/L 3.6-5.0 Serum or plasma chloride measurement (moles/volume) 106 mmol/L 98-107 Carbon dioxide 24 mmol/L 21-32 Serum or plasma anion gap determination (moles/volume) 10 mmol/L 5-14 Serum or plasma urea nitrogen measurement (mass/volume ) 11 mg/dL 7-18 Serum or plasma creatinine measurement (mass/volume) 0.64 mg/dL 0.60-1.30 Serum or plasma urea nitrogen/creatinine mass ratio 17 NRG Serum or plasma creatinine measurement w ith calculation of estimated glomerular filtration rate > NRG Serum or plasma glucose measurement (mass/volume) 100 mg/dL 70-105 Serum or plasma calcium measurement (mass/volume) 9.2 mg/dL 8.5-10.1 Serum or plasma total bilirubin measurement (mass/volu me) 0.3 mg/dL 0.1-1.0 Serum or plasma alkaline phosphatase timothy surement (enzymatic activity/volume) 53 U/L 40-136 Serum or plasma aspartate aminotransfera se measurement (enzymatic activity/volume) 18 U/L 5-34 Serum or plasma alanine aminotransferase measurement (enzymatic activity/volume) 10 U/L 0-55 Serum or plasma protein measurement (mass/volume) 6.8 g/dL 6.4-8.2 Serum or plasma albumin measurement (mass/volume) 4.0 g/dL 3.2-4.5 CALCIUM CORRECTED 9.2 mg/dL 8.5-10.1 Lipase - 11/02/18 19:59 Lipase 49 U/L 8-78 Stool Helicobacter pylori antigen detect ion - 12/31/18 11:15 H PYLORI ANTIGEN PT Positive Negative CULTURE, GENITAL - 01/04/19 08:33 CULTURE, GENITAL SEE NOTE NRG Complete blood count (CBC) with automate d white blood cell (WBC) differential - 03/19/19 20:33 Blood leukocytes automated count (number/volume) 6.3 10*3/uL 4.3-11.0 Blood erythrocytes automated count (number/volume) 4.35 10*6/uL 4.35-5.85 Venous blood hemoglobin measurement (mass/volume) 13.3 g/dL 11.5-16.0 Blood hematocrit (volume fraction) 39 % 35-52 Automated erythrocyte mean corpuscular volume 90 [ foz_us] 80-99 Automated erythrocyte mean corpuscular h emoglobin (mass per erythrocyte) 31 pg 25-34 Automated erythrocyte mean corpuscular h emoglobin concentration measurement (mass/volume) 34 g/dL 32-36 Automated erythrocyte distribution width ratio 12. 7 % 10.0- 14.5 Automated blood platelet count (count/volume) 198 10*3/uL 130-400 Automated blood platelet mean volume measurement 9.7 [foz_us] 7.4-10.4 Automated blood neutrophils/100 leukocytes 57 % 42-75 Automated blood lymphocytes/100 leukocytes 34 % 12-44 Blood monocytes/100 leukocytes 7 % 0-12 Automated blood eosinophils/100 leukocytes 1 % 0-10 Automated blood basophils/100 leukocytes 1 % 0-10 Blood neutrophils automated count (number/volume) 3.6 10*3 1.8-7.8 Blood lymphocytes automated count (number/volume) 2.2 10*3 1.0-4.0 Blood monocytes automated count (number/volume) 0. 4 10*3 0.0-1.0 Automated eosinophil count 0.1 10*3/uL 0 .0-0.3 Automated blood basophil count (count/volume) 0.1 10*3/uL 0.0-0.1 Comprehensive metabolic panel - 03/19/19 20:33 Serum or plasma sodium measurement (moles/volume) 136 mmol/L 135-145 Serum or plasma potassium measurement (moles/volume) 3.4 mmol/L 3.6-5.0 Serum or plasma chloride measurement (moles/volume) 102 mmol/L 98-107 Carbon dioxide 23 mmol/L 21-32 Serum or plasma anion gap determination (moles/volume) 11 mmol/L 5-14 Serum or plasma urea nitrogen measurement (mass/volume ) 9 mg/dL 7-18 Serum or plasma creatinine measurement (mass/volume) 0.72 mg/dL 0.60-1.30 Serum or plasma urea nitrogen/creatinine mass ratio 13 NRG Serum or plasma creatinine measurement w ith calculation of estimated glomerular filtration rate > NRG Serum or plasma glucose measurement (mass/volume) 81 mg/dL 70-105 Serum or plasma calcium measurement (mass/volume) 9.4 mg/dL 8.5-10.1 Serum or plasma total bilirubin measurement (mass/volu me) 0.6 mg/dL 0.1-1.0 Serum or plasma alkaline phosphatase timothy surement (enzymatic activity/volume) 47 U/L 40-136 Serum or plasma aspartate aminotransfera se measurement (enzymatic activity/volume) 32 U/L 5-34 Serum or plasma alanine aminotransferase measurement (enzymatic activity/volume) 39 U/L 0-55 Serum or plasma protein measurement (mass/volume) 7.1 g/dL 6.4-8.2 Serum or plasma albumin measurement (mass/volume) 4.4 g/dL 3.2-4.5 CALCIUM CORRECTED 9.1 mg/dL 8.5-10.1 Complete urinalysis with reflex to cultu re - 03/19/19 21:05 Urine color determination YELLOW NRG Urine clarity determination CLEAR NR G Urine pH measurement by test strip 8 5-9 Specific gravity of urine by test strip 1.010 1.016-1.022 Urine protein assay by test strip, semi-quantitative NEGATIVE NEGATIVE Urine glucose detection by automated test strip NE GATIVE NEGATIVE Erythrocytes detection in urine sediment by light micr oscopy NEGATIVE NEGATIVE Urine ketones detection by automated test strip NE GATIVE NEGATIVE Urine nitrite detection by test strip NEGATIVE NEGATIVE Urine total bilirubin detection by test strip NEGA TIVE NEGATIVE Urine urobilinogen measurement by automated test strip (mass/volume) NORMAL NORMAL Urine leukocyte esterase detection by dipstick NEG ATIVE NEGATIVE Automated urine sediment erythrocyte cou nt by microscopy (number/high power field) NONE NRG Automated urine sediment leukocyte count by microscopy (number/high power field) NONE NRG Bacteria detection in urine sediment by light microsco py TRACE NRG Squamous epithelial cells detection in u rine sediment by light microscopy 2-5 NRG Crystals detection in urine sediment by light microsco py NONE NRG Casts detection in urine sediment by light microscopy NONE NRG Mucus detection in urine sediment by light microscopy NEGATIVE NRG Complete urinalysis with reflex to culture NO NRG Methicillin resistant Staphylococcus aur eus (MRSA) screening culture - 04/25/19 11:00 Methicillin resistant Staphylococcus aureus (MRSA) scr eening culture NEG NRG CULTURE, URINE - 05/14/19 13:38 CULTURE, URINE, ROUTINE SEE NOTE NRG Complete urinalysis with reflex to cultu re - 06/18/19 19:55 Urine color determination YELLOW NRG Urine clarity determination CLEAR NR G Urine pH measurement by test strip 7 5-9 Specific gravity of urine by test strip 1.010 1.016-1.022 Urine protein assay by test strip, semi-quantitative 1+ NEGATIVE Urine glucose detection by automated test strip NE GATIVE NEGATIVE Erythrocytes detection in urine sediment by light micr oscopy 1+ NEGATIVE Urine ketones detection by automated test strip 4+ NEGATIVE Urine nitrite detection by test strip NEGATIVE NEGATIVE Urine total bilirubin detection by test strip NEGA TIVE NEGATIVE Urine urobilinogen measurement by automated test strip (mass/volume) NORMAL NORMAL Urine leukocyte esterase detection by dipstick 1+ NEGATIVE Automated urine sediment erythrocyte cou nt by microscopy (number/high power field) NONE NRG Automated urine sediment leukocyte count by microscopy (number/high power field) RARE NRG Bacteria detection in urine sediment by light microsco py TRACE NRG Squamous epithelial cells detection in u rine sediment by light microscopy 5-10 NRG Crystals detection in urine sediment by light microsco py NONE NRG Casts detection in urine sediment by light microscopy NONE NRG Mucus detection in urine sediment by light microscopy NEGATIVE NRG Complete urinalysis with reflex to culture NO NRG Influenza virus A and B antigen detectio n - 06/18/19 19:55 FLU RESULT NEGATIVE FOR INFLUENZA A AND B ANTIGENS BY IA NRG Complete blood count (CBC) with automate d white blood cell (WBC) differential - 06/18/19 20:37 Blood leukocytes automated count (number/volume) 11.2 10*3/uL 4.3-11.0 Blood erythrocytes automated count (number/volume) 4.47 10*6/uL 4.35-5.85 Venous blood hemoglobin measurement (mass/volume) 13.6 g/dL 11.5-16.0 Blood hematocrit (volume fraction) 39 % 35-52 Automated erythrocyte mean corpuscular volume 87 [ foz_us] 80-99 Automated erythrocyte mean corpuscular h emoglobin (mass per erythrocyte) 30 pg 25-34 Automated erythrocyte mean corpuscular h emoglobin concentration measurement (mass/volume) 35 g/dL 32-36 Automated erythrocyte distribution width ratio 13. 2 % 10.0- 14.5 Automated blood platelet count (count/volume) 196 10*3/uL 130-400 Automated blood platelet mean volume measurement 10.0 [foz_us] 7.4-10.4 Automated blood neutrophils/100 leukocytes 88 % 42-75 Automated blood lymphocytes/100 leukocytes 6 % 12-44 Blood monocytes/100 leukocytes 6 % 0-12 Automated blood eosinophils/100 leukocytes 0 % 0-10 Automated blood basophils/100 leukocytes 0 % 0-10 Blood neutrophils automated count (number/volume) 9.8 10*3 1.8-7.8 Blood lymphocytes automated count (number/volume) 0.6 10*3 1.0-4.0 Blood monocytes automated count (number/volume) 0. 7 10*3 0.0-1.0 Automated eosinophil count 0.0 10*3/uL 0 .0-0.3 Automated blood basophil count (count/volume) 0.0 10*3/uL 0.0-0.1 Comprehensive metabolic panel - 06/18/19 20:37 Serum or plasma sodium measurement (moles/volume) 133 mmol/L 135-145 Serum or plasma potassium measurement (moles/volume) 4.1 mmol/L 3.6-5.0 Serum or plasma chloride measurement (moles/volume) 101 mmol/L 98-107 Carbon dioxide 20 mmol/L 21-32 Serum or plasma anion gap determination (moles/volume) 12 mmol/L 5-14 Serum or plasma urea nitrogen measurement (mass/volume ) 8 mg/dL 7-18 Serum or plasma creatinine measurement (mass/volume) 0.61 mg/dL 0.60-1.30 Serum or plasma urea nitrogen/creatinine mass ratio 13 NRG Serum or plasma creatinine measurement w ith calculation of estimated glomerular filtration rate > NRG Serum or plasma glucose measurement (mass/volume) 91 mg/dL 70-105 Serum or plasma calcium measurement (mass/volume) 9.4 mg/dL 8.5-10.1 Serum or plasma total bilirubin measurement (mass/volu me) 0.4 mg/dL 0.1-1.0 Serum or plasma alkaline phosphatase timothy surement (enzymatic activity/volume) 46 U/L 40-136 Serum or plasma aspartate aminotransfera se measurement (enzymatic activity/volume) 32 U/L 5-34 Serum or plasma alanine aminotransferase measurement (enzymatic activity/volume) 17 U/L 0-55 Serum or plasma protein measurement (mass/volume) 7.7 g/dL 6.4-8.2 Serum or plasma albumin measurement (mass/volume) 4.3 g/dL 3.2-4.5 CALCIUM CORRECTED 9.2 mg/dL 8.5-10.1 Serum or plasma C reactive protein measu rement (mass/volume) - 06/18/19 20:37 Serum or plasma C reactive protein measurement (mass/v olume) 2.12 mg/dL 0.00-0.50 Manual absolute plasma cell count - 05/29 20:37 Blood monocytes/100 leukocytes 11 % NRG Manual blood segmented neutrophils/100 leukocytes 84 % NRG Manual blood lymphocytes/100 leukocytes 5 % NRG Blood erythrocyte morphology finding identification NORMAL NR Complete blood count (CBC) with automate d white blood cell (WBC) differential - 08/16/19 15:26 Blood leukocytes automated count (number/volume) 12.0 10*3/uL 4.3-11.0 Blood erythrocytes automated count (number/volume) 3.83 10*6/uL 4.35-5.85 Venous blood hemoglobin measurement (mass/volume) 11.8 g/dL 11.5-16.0 Blood hematocrit (volume fraction) 35 % 35-52 Automated erythrocyte mean corpuscular volume 90 [ foz_us] 80-99 Automated erythrocyte mean corpuscular h emoglobin (mass per erythrocyte) 31 pg 25-34 Automated erythrocyte mean corpuscular h emoglobin concentration measurement (mass/volume) 34 g/dL 32-36 Automated erythrocyte distribution width ratio 13. 6 % 10.0- 14.5 Automated blood platelet count (count/volume) 241 10*3/uL 130-400 Automated blood platelet mean volume measurement 9.9 [foz_us] 7.4-10.4 Automated blood neutrophils/100 leukocytes 78 % 42-75 Automated blood lymphocytes/100 leukocytes 14 % 12-44 Blood monocytes/100 leukocytes 7 % 0-12 Automated blood eosinophils/100 leukocytes 0 % 0-10 Automated blood basophils/100 leukocytes 0 % 0-10 Blood neutrophils automated count (number/volume) 9.4 10*3 1.8-7.8 Blood lymphocytes automated count (number/volume) 1.7 10*3 1.0-4.0 Blood monocytes automated count (number/volume) 0. 9 10*3 0.0-1.0 Automated eosinophil count 0.1 10*3/uL 0 .0-0.3 Automated blood basophil count (count/volume) 0.0 10*3/uL 0.0-0.1 Streptococcus pyogenes antigen detection - 08/16/19 15:26 Streptococcus pyogenes antigen detection NEGATIVE NEGATIVE Bacterial throat culture - 08/16/19 15:2 6 Bacterial throat culture NBS NRG Complete urinalysis with reflex to cultu re - 10/30/19 03:10 Urine color determination YELLOW NRG Urine clarity determination SL CLOUDY N RG Urine pH measurement by test strip 7.0 5-9 Specific gravity of urine by test strip 1.020 1.016-1.022 Urine protein assay by test strip, semi-quantitative NEGATIVE NEGATIVE Urine glucose detection by automated test strip TR ROEL NEGATIVE Erythrocytes detection in urine sediment by light micr oscopy NEGATIVE NEGATIVE Urine ketones detection by automated test strip NE GATIVE NEGATIVE Urine nitrite detection by test strip NEGATIVE NEGATIVE Urine total bilirubin detection by test strip NEGA TIVE NEGATIVE Urine urobilinogen measurement by automated test strip (mass/volume) 0.2 mg/dL < = 1.0 Urine leukocyte esterase detection by dipstick TRA CE NEGATIVE Automated urine sediment erythrocyte cou nt by microscopy (number/high power field) RARE NRG Automated urine sediment leukocyte count by microscopy (number/high power field) [HPF] NRG Bacteria detection in urine sediment by light microsco py MODERATE NRG Squamous epithelial cells detection in u rine sediment by light microscopy 25-50 NRG Crystals detection in urine sediment by light microsco py PRESENT NRG Casts detection in urine sediment by light microscopy NONE NRG Mucus detection in urine sediment by light microscopy SMALL NRG Complete urinalysis with reflex to culture YES NRG Amorphous sediment detection in urine sediment by ligh t microscopy FEW BONITA PHOSPHATE NRG Bacterial urine culture - 10/30/19 03:10 Bacterial urine culture 3 OR MORE NRG COLONY COUNT >100,000/ML NRG FTX;REPORTABLE GRAM POSITIVE ISOLATES; SUGGESTING NRG FREE TEXT ENTRY 2 PROBABLE COLLECTION CONTAMINATIO N WITH NRG FREE TEXT ENTRY 3 SKIN MIGUEL. NO SUSCEPTIBILITY PE RFORMED. NRG Complete urinalysis with reflex to cultu re - 11/24/19 21:40 Urine color determination YELLOW NRG Urine clarity determination SL CLOUDY N RG Urine pH measurement by test strip 6.0 5-9 Specific gravity of urine by test strip >= 1.016-1.022 Urine protein assay by test strip, semi-quantitative TRACE NEGATIVE Urine glucose detection by automated test strip NE GATIVE NEGATIVE Erythrocytes detection in urine sediment by light micr oscopy TRACE-I NEGATIVE Urine ketones detection by automated test strip 2+ NEGATIVE Urine nitrite detection by test strip NEGATIVE NEGATIVE Urine total bilirubin detection by test strip NEGA TIVE NEGATIVE Urine urobilinogen measurement by automated test strip (mass/volume) 0.2 mg/dL < = 1.0 Urine leukocyte esterase detection by dipstick TRA CE NEGATIVE Automated urine sediment erythrocyte cou nt by microscopy (number/high power field) [HPF] NRG Automated urine sediment leukocyte count by microscopy (number/high power field) [HPF] NRG Bacteria detection in urine sediment by light microsco py TRACE NRG Squamous epithelial cells detection in u rine sediment by light microscopy 10-25 NRG Crystals detection in urine sediment by light microsco py NONE NRG Casts detection in urine sediment by light microscopy NONE NRG Mucus detection in urine sediment by light microscopy MODERATE NRG Complete urinalysis with reflex to culture NO NRG Complete urinalysis with reflex to cultu re - 12/07/19 20:40 Urine color determination YELLOW NRG Urine clarity determination SL CLOUDY N RG Urine pH measurement by test strip 6.0 5-9 Specific gravity of urine by test strip >= 1.016-1.022 Urine protein assay by test strip, semi-quantitative TRACE NEGATIVE Urine glucose detection by automated test strip NE GATIVE NEGATIVE Erythrocytes detection in urine sediment by light micr oscopy 1+ NEGATIVE Urine ketones detection by automated test strip NE GATIVE NEGATIVE Urine nitrite detection by test strip NEGATIVE NEGATIVE Urine total bilirubin detection by test strip NEGA TIVE NEGATIVE Urine urobilinogen measurement by automated test strip (mass/volume) 0.2 mg/dL < = 1.0 Urine leukocyte esterase detection by dipstick NEG ATIVE NEGATIVE Automated urine sediment erythrocyte cou nt by microscopy (number/high power field) [HPF] NRG Automated urine sediment leukocyte count by microscopy (number/high power field) NONE NRG Bacteria detection in urine sediment by light microsco py FEW NRG Squamous epithelial cells detection in u rine sediment by light microscopy 25-50 NRG Crystals detection in urine sediment by light microsco py PRESENT NRG Casts detection in urine sediment by light microscopy NONE NRG Mucus detection in urine sediment by light microscopy MODERATE NRG Complete urinalysis with reflex to culture NO NRG Calcium oxalate crystals detection in ur ine sediment by light microscopy MODERATE NRG Bacterial urine culture - 12/07/19 20:40 Bacterial urine culture 3 OR MORE NRG COLONY COUNT 40,000 CFU/ML NRG SUSCEPTIBILITY GRAM POSITIVE; SUGGESTING PROBABLE NRG MRSA SCREEN COLLECTION COTAMINATION WITH SKIN MARTY A NRG RAPID ID NO SUSCEPTIBILITY PERFORMED. NRG Complete blood count (CBC) with automate d white blood cell (WBC) differential - 12/07/19 21:55 Blood leukocytes automated count (number/volume) 15.7 10*3/uL 4.3-11.0 Blood erythrocytes automated count (number/volume) 3.88 10*6/uL 4.35-5.85 Venous blood hemoglobin measurement (mass/volume) 10.5 g/dL 11.5-16.0 Blood hematocrit (volume fraction) 33 % 35-52 Automated erythrocyte mean corpuscular volume 85 [ foz_us] 80-99 Automated erythrocyte mean corpuscular h emoglobin (mass per erythrocyte) 27 pg 25-34 Automated erythrocyte mean corpuscular h emoglobin concentration measurement (mass/volume) 32 g/dL 32-36 Automated erythrocyte distribution width ratio 15. 8 % 10.0- 14.5 Automated blood platelet count (count/volume) 192 10*3/uL 130-400 Automated blood platelet mean volume measurement 10.6 [foz_us] 7.4-10.4 Automated blood neutrophils/100 leukocytes 78 % 42-75 Automated blood lymphocytes/100 leukocytes 14 % 12-44 Blood monocytes/100 leukocytes 8 % 0-12 Automated blood eosinophils/100 leukocytes 1 % 0-10 Automated blood basophils/100 leukocytes 0 % 0-10 Blood neutrophils automated count (number/volume) 12.2 10*3 1.8-7.8 Blood lymphocytes automated count (number/volume) 2.1 10*3 1.0-4.0 Blood monocytes automated count (number/volume) 1. 2 10*3 0.0-1.0 Automated eosinophil count 0.1 10*3/uL 0 .0-0.3 Automated blood basophil count (count/volume) 0.0 10*3/uL 0.0-0.1 Manual absolute plasma cell count - 11/09 05/30 21:55 Blood monocytes/100 leukocytes 5 % NRG Manual blood segmented neutrophils/100 leukocytes 81 % NRG Manual blood lymphocytes/100 leukocytes 13 % NRG Manual eosinophils/100 leukocytes in nose 1 % NRG Blood erythrocyte morphology finding identification NORMAL NR [id number] - 12/07/19 22:00 [id number] SPECIMEN AVAILABLE NRG Microscopic examination by wet preparati on - 12/18/19 12:20 WET PREP RESULTS NO YEAST OBSERVED, NO TRICH OMONAS OBSERVED NR Urine protein/creatinine mass ratio - 11:00 Urine protein measurement (mass/volume) 54 mg/dL 6-12 Urine creatinine measurement (mass/volume) 24 mg/d L 30-125 Urine protein/creatinine mass ratio 2.25 NRG Urine protein/creatinine mass ratio - 11:30 Urine protein measurement (mass/volume) 567 mg/dL 6-12 Urine creatinine measurement (mass/volume) 223 mg/ dL 30-125 Urine protein/creatinine mass ratio 2.54 [facility] Comprehensive metabolic panel - 12/20/19 13:19 Serum or plasma sodium measurement (moles/volume) 138 mmol/L 135-145 Serum or plasma potassium measurement (moles/volume) 3.8 mmol/L 3.6-5.0 Serum or plasma chloride measurement (moles/volume) 110 mmol/L 98-107 Carbon dioxide 16 mmol/L 21-32 Serum or plasma anion gap determination (moles/volume) 12 mmol/L 5-14 Serum or plasma urea nitrogen measurement (mass/volume ) 7 mg/dL 7-18 Serum or plasma creatinine measurement (mass/volume) 0.59 mg/dL 0.60-1.30 Serum or plasma urea nitrogen/creatinine mass ratio 12 NRG Serum or plasma creatinine measurement w ith calculation of estimated glomerular filtration rate > NRG Serum or plasma glucose measurement (mass/volume) 98 mg/dL 70-105 Serum or plasma calcium measurement (mass/volume) 8.4 mg/dL 8.5-10.1 Serum or plasma total bilirubin measurement (mass/volu me) 0.2 mg/dL 0.1-1.0 Serum or plasma alkaline phosphatase timothy surement (enzymatic activity/volume) 151 U/L 40-136 Serum or plasma aspartate aminotransfera se measurement (enzymatic activity/volume) 25 U/L 5-34 Serum or plasma alanine aminotransferase measurement (enzymatic activity/volume) 17 U/L 0-55 Serum or plasma protein measurement (mass/volume) 5.9 g/dL 6.4-8.2 Serum or plasma albumin measurement (mass/volume) 3.2 g/dL 3.2-4.5 CALCIUM CORRECTED 9.0 mg/dL 8.5-10.1 Encounters ACCT No. Visit Date/Time Discharge Status Pt. Type Provider Facility Loc./Unit Complaint [id number] 08/08/2019 11:40:00 08/08/2019 23:59: 59 CLS Outpatient MARILEE MEJIA [facility] [place] [id number] 05/14/2019 11:40:00 Document Registration [id number] 01/04/2019 08:00:00 Document Registration [id number] 04/04/2018 10:40:00 Document Registration [id number] 02/06/2018 15:00:00 Document Registration [id number] 10/10/2017 18:55:00 Document Registration [id number] 10/02/2017 10:00:00 Document Registration [id number] 08/28/2017 16:00:00 Document Registration [id number] 06/28/2017 14:10:00 Document Registration [id number] 12/18/2019 11:28:00 13:05:00 DIS Outpatient TEGAN GRIMES DO [facility] PELVIC/LOWER BACK PAIN [id number] 12/07/2019 20:32:00 00:05:00 DIS Outpatient RIAN LAWLER MD [facility] UTI SYMPTOMS [id number] 11/24/2019 21:23:00 23:50:00 DIS Outpatient [facility]BINS [facility] V[facility] [id number] 10/30/2019 02:50:00 03:54:00 DIS Outpatient RIAN LAWLER MD [facility] LOW PELVIC PAIN [id number] 08/22/2019 11:07:00 23:59:59 CLS Outpatient KAYODE BUNN DO [facility] RAD FETUS PRESENT 2ND TRIME STER [id number] 08/16/2019 14:54:00 16:10:00 DIS Emergency LOLLY SOARES, VANESA Mead [facility] ER FEVER / COUGH / CONGEST ION - 19 WKS PREG [id number] 06/27/2019 00:10:00 23:59:59 CLS Preadmit SOFY CARMICHAEL MESHA B [facility] LAB HPYLORI [id number] 03/28/2019 08:37:00 00:01:00 DIS Outpatient MESHA GOETZ DO [facility] LAB HPYLORI [id number] 06/18/2019 19:34:00 21:45:00 DIS Emergency EDDA SOARES, AUSTIN Joel [facility] ER 10 WEEKS PREG,F EVER [id number] 06/02/2019 00:13:00 23:59:59 CLS Preadmit SOFY CARMICHAEL MESHA B [facility] LAB FECAL ANTIGEN STUDY [id number] 03/04/2019 08:40:00 00:01:00 DIS Outpatient ROQUE GOETZ DOIC B [facility] LAB FECAL ANTIGEN STUDY [id number] 04/25/2019 10:28:00 15:50:00 DIS Outpatient ROQUE GOETZ DOIC B [facility] SDC ANAL FISSURE [id number] 04/18/2019 10:15:00 11:03:00 DIS Outpatient SOFY CARMICHAEL MESHA B [facility] PREOP ANAL FISSURE [id number] 04/01/2019 00:11:00 23:59:59 CLS Preadmit ROQUE GOETZ DOIC B [facility] LAB H-PLYARI [id number] 12/31/2018 10:58:00 00:01:00 DIS Outpatient ROQUE GOETZ DOIC B [facility] LAB H-MAJO [id number] 03/21/2019 21:21:00 21:41:00 DIS Emergency LEO MOSER APRN [facility] ER R EYE SWOLLEN [id number] 03/19/2019 20:24:00 21:27:00 DIS Emergency NAKUL ZEPEDA [facility] ER BLOOD IN STOOL [id number] 12/09/2018 09:05:00 12:10:00 DIS Outpatient MESHA GOETZ DO [facility] ENDO CHRONIC CONSTIPATION/RE FLUX [id number] 12/05/2018 10:00:00 10:48:00 DIS Outpatient MESHA GOETZ DO [facility] PREOP COLONOSCOPY/EGD [id number] 11/02/2018 17:48:00 21:59:00 DIS Outpatient BELINDA GRAJEDA [facility] ER FEVER,NAUSEA,CO NGESTED [id number] 08/31/2018 17:20:00 18:44:00 DIS Emergency BELINDA GRAJEDA [facility] ER FEVER,CONGESTED [id number] 08/05/2018 16:56:00 018 18:04:00 DIS Outpatient LEO MOSER APRN [facility] ER UTI/ABD AND BACK PAIN/N /V [id number] 06/09/2018 21:08:00 018 22:32:00 DIS Outpatient LEO MOSER APRN [facility] ER ABD PAIN [id number] 12/15/2017 19:20:00 018 21:49:00 DIS Emergency BELINDA GRAJEDA [facility] ER ABDOMEN PAIN [id number] 07/26/2017 18:15:00 017 19:55:00 DIS Emergency LEO MOSER APRN [facility] ER SINUS PROBLEMS;COUGH;PO SSIBLE UTI [id number] 07/04/2017 19:52:00 23:20:00 DIS Emergency NAKUL ZEPEDA [facility] ER RT SIDED ABD PAIN [id number] 05/14/2017 12:55:00 13:36:00 DIS Emergency LEO MOSER APRN [facility] ER THINKS SHE HAS A UTI [id number] 12/31/2016 21:07:00 21:43:00 DIS Emergency LEO MOSER APRN [facility] ER ABD PAIN, BLOOD IN URIN E, FREQUENT URINATION [id number] 10/14/2016 17:39:00 21:00:00 DIS Emergency BELINDA GRAJEDA [facility] ER ABD SWELLING/PAIN/NAUS EA/UTI [id number] 09/25/2016 01:44:00 02:16:00 DIS Emergency LAURIE DIAZ MD [facility] ER LEGS NUMB, BODY SHAKES, CHEST PAIN [id number] 08/30/2016 05:32:00 09:11:00 DIS Emergency LAURIE DIAZ MD [facility] ER L SIDE PAIN [id number] 07/25/2016 10:54:00 11:12:00 DIS Emergency LEO MOSER APRN [facility] ER POSS MED REACTION FACIA L SWELLING/RASH [id number] 07/21/2016 12:33:00 16:48:00 DIS Emergency ABBY ROMO DO [facility] ER ABD PAIN [id number] 07/17/2016 13:42:00 23:59:59 CLS Emergency LEO MOSER APRN [facility] ER SORE THROAT SWOLLEN GLA NDS BLISTERS IN MOUTH [id number] 05/21/2016 01:58:00 02:58:00 DIS Emergency AUSTIN BAÑUELOS MD [facility] ER R LEG BUG BITE [id number] 04/28/2016 19:55:00 016 20:28:00 DIS Emergency LEO MOSER APRN [facility] ER CONGESTION,FEVER,POSSIB LE [id number] 03/30/2016 19:48:00 20:50:00 DIS Emergency BELINDA GRAJEDA [facility] ER RASH ON LEFT ARM [id number] 02/22/2016 22:56:00 23:42:00 DIS Emergency ABBY ROMO DO [facility] ER TONGUE SWELLING AND BLI STERS [id number] 01/10/2016 10:57:00 23:59:59 CLS Outpatient KAOYDE BUNN DO [facility] RAD CHRONIC RUQ PAIN,OVARIA N CYST [id number] 12/14/2015 19:55:00 21:25:00 DIS Emergency LAURIE DIAZ MD [facility] ER CP,SOA [id number] 06/14/2015 02:40:00 03:11:00 DIS Emergency ROSANNE ROMERO MD [facility] ER CONGESTION [id number] 05/12/2015 21:12:00 23:08:00 DIS Emergency ABBY ROMO DO [facility] ER POSSIBLE ALLERGIC REACT ION TO MEDS [id number] 04/09/2015 05:54:00 08:30:00 DIS Emergency DARION BRIGGS MD [facility] ER POSS UTI,ABD PAIN [id number] 08/23/2014 15:42:00 17:41:00 DIS Emergency LEO MOSER APRN [facility] ER FEVER ABD PAIN [id number] 07/07/2014 18:58:00 23:59:59 CLS Outpatient YAMIL WELDON [facility] QUICK UA CULTURE [id number] 03/23/2014 20:51:00 21:04:00 DIS Emergency LEO MOSER 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 [facility] ER EAR PAIN [id number] 09/01/2013 20:30:00 21:01:00 DIS Emergency LEO MOSER APRN [facility] ER MULTIPLE COMPLAINTS [id number] 07/09/2013 17:22:00 20:11:00 DIS Emergency BELINDA GRAJEDA [facility] ER FALL WITH HEAD INJ [id number] 03/14/2013 15:39:00 23:59:59 CLS Outpatient MCCHRKATINA SYLVESTER R FLOOR MOLDER [facility] QUICK UTI [id number] 03/11/2013 13:22:00 23:59:59 CLS Outpatient MAJOR, KENNEDY FLOOR MOLDER [facility] QUICK EAR PAIN SINUS [id number] 12/20/2019 10:45:[address] Outpatient KAYODE BUNN DO [facility] WSo Z3A.37, 14.00 [id number] 12/19/2019 11:00:[address] Outpatient KAYODE BUNN DO [facility] LABNPT [id number] 09/26/2017 07:20:00 Document Registration [id number] 09/26/2017 07:20:00 Document Registration [id number] 09/26/2017 07:20:00 Document Registration [id number] 06/23/2015 13:15:00 Document Registration [id number] 07/17/2012 12:53:00 Document Registration [id number] 04/27/2012 21:37:00 Document Registration [id number] 06/05/2011 18:36:00 Document Registration [id number] 03/18/2011 14:53:00 Document Registration [id number] 02/24/2011 16:50:00 Document Registration [id number] 12/24/2010 15:31:00 Document Registration [id number] 10/27/2010 09:46:00 Document Registration [id number] 10/22/2014 13:30:00 10/22/2014 23:59: 59 CLS Outpatient IVETH BENDER APRN [id number] 10/20/2014 09:21:00 10/20/2014 23:59: 59 CLS Outpatient IVETH BENDER APRN [id number] 09/07/2014 15:17:00 09/07/2014 23:59: 59 CLS Outpatient IVETH BENDER APRN [id number] 08/19/2014 13:29:00 08/19/2014 23:59: 59 CLS Outpatient JOSE RAMON PALOMO APRN
[2019-12-22 12:18] LABS: BASOPHILS # (AUTO) 0.1 10^3/uL (0.0-0.1); BASOPHILS % (AUTO) 0 % (0-10); EOSINOPHILS % (AUTO) 0 % (0-10); HEMATOCRIT 30 % (35-52); HEMOGLOBIN 9.5 G/DL (11.5-16.0); LYMPHOCYTES # (AUTO) 2.2 X 10^3 (1.0-4.0); LYMPHOCYTES % (AUTO) 12 % (12-44); MEAN CORPUSCULAR HEMOGLOBIN 27 PG (25-34); MEAN CORPUSCULAR HGB CONC 32 G/DL (32-36); MEAN CORPUSCULAR VOLUME 85 FL (80-99); MEAN PLATELET VOLUME 11.1 FL (7.4-10.4); MONOCYTES # (AUTO) 1.7 X 10^3 (0.0-1.0); MONOCYTES % (AUTO) 10 % (0-12); NEUTROPHILS # (AUTO) 14.3 X 10^3 (1.8-7.8); NEUTROPHILS % (AUTO) 78 % (42-75); PLATELET COUNT 194 10^3/uL (130-400); RED CELL DISTRIBUTION WIDTH 17.7 % (10.0-14.5); WHITE BLOOD COUNT 18.3 10^3/uL (4.3-11.0)
[2019-12-22 12:27] LABS: BILIRUBIN,URINE NEGATIVE (NEGATIVE); CLARITY,URINE CLEAR; COLOR,URINE YELLOW; GLUCOSE, URINE (UA) NEGATIVE (NEGATIVE); KETONES,URINE NEGATIVE (NEGATIVE); LEUKOCYTE ESTERASE ,URINE TRACE (NEGATIVE); NITRITE,URINE NEGATIVE (NEGATIVE); PROTEIN,URINE 3+ (NEGATIVE)
[2019-12-22 12:31] LABS: ALBUMIN 2.8 GM/DL (3.2-4.5)
[2019-12-22 12:32] LABS: CHLORIDE 109 MMOL/L (98-107); SODIUM 139 MMOL/L (135-145)
[2019-12-22 12:33] LABS: CALCIUM 7.8 MG/DL (8.5-10.1)
[2019-12-22 12:34] LABS: GLUCOSE 70 MG/DL (70-105); TOTAL PROTEIN 5.3 GM/DL (6.4-8.2)
[2019-12-22 12:35] LABS: CARBON DIOXIDE 20 MMOL/L (21-32)
[2019-12-22 12:36] LABS: BILIRUBIN,TOTAL 0.2 MG/DL (0.1-1.0)
[2019-12-22 12:38] LABS: ALKALINE PHOSPHATASE 133 U/L (40-136); CREATININE SERUM 0.56 MG/DL (0.60-1.30); GFR ESTIMATED > 60
[2019-12-22 12:39] LABS: BUN/CREATININE RATIO 18
[2019-12-22 12:41] LABS: ALANINE AMINOTRANSFERASE 13 U/L (0-55); URIC ACID 4.5 MG/DL (2.6-7.2)
[2019-12-22 12:49] LABS: BACTERIA,URINE TRACE /HPF; HYALINE CASTS, URINE RARE /LPF; RBC,URINE RARE /HPF; WBC,URINE RARE /HPF
[2019-12-22 13:02] LABS: BAND NEUTROPHILS 0 %; BASOPHILS % (MANUAL) 0 %; EOSINOPHILS % (MANUAL) 0 %; LYMPHOCYTES % (MANUAL) 19 %; MONOCYTES % (MANUAL) 10 %; NEUTROPHILS % (MANUAL) 71 %
[2019-12-22 13:03] LABS: ANISOCYTOSIS SLIGHT; POLYCHROMASIA SLIGHT
[2019-12-22] MEDS ORDERED: METOCLOPRAMIDE INJ 10 MG/2 ML (REGLAN) ONE (14:09)
[2019-12-22] MEDS ORDERED: FAMOTIDINE 20MG/2ML IV (PEPCID) ONE (14:10)
[2019-12-22] MEDS ORDERED: CITRIC ACID/SOB CIT (BICITRA) 30 ML UDC ONE (14:10)
[2019-12-22] MEDS ORDERED: LACTATED RINGERS 1,000 ML IV SCH (14:15)
[2019-12-22] MEDS ORDERED: CALCIUM GLUC. 10% 4.65 MEQ/10 ML VIAL IV PRN (14:30)
[2019-12-22] MEDS ORDERED: MAGNESIUM 4 GM/100 ML IVPB 100 ML IV NR (14:30)
[2019-12-22] MEDS: MAGNESIUM SULFATE DRIP 500 ML IV SCH (15:25)
[2019-12-22] MEDS ORDERED: ceFAZolin INJECTION 1,000 MG in WATER (STERILE) FOR INJECTION 10 ML IV ONE (16:30)
[2019-12-22] MEDS ORDERED: ONDANSETRON 4 MG/2 ML (SDV) Z0FRAN ONE (16:53)
[2019-12-22] MEDS ORDERED: DEXAMETHASONE 10 MG/ML (DECADRON) 1 ML VIAL ONE (16:53)
[2019-12-22] MEDS ORDERED: fentaNYL INJECTION 100 MCG/2 ML AMP ONE (16:53)
[2019-12-22] MEDS ORDERED: OXYTOCIN PRE-MIX DRIP 1,000 ML IV ONE (17:01)
[2019-12-22] MEDS ORDERED: OXYTOCIN PRE-MIX DRIP 500 ML IV SCH (17:25)
[2019-12-22] MEDS ORDERED: morphine INJ 4 MG/ML 1 ML (VIAL/SYRINGE) IVP PRN (17:30)
[2019-12-22] MEDS ORDERED: MEASLES,MUMPS,RUBELLA 1 EA INJ SC SCH (17:30)
[2019-12-22] MEDS ORDERED: TETANUS,DIPTH,PERTUSS P/F (BOOSTRIX) 0.5 ML VIAL IM SCH (17:30)
[2019-12-22] MEDS ORDERED: BUPIVACAINE 0.5% 30 ML (SENSORCAINE) VIAL ONE (17:48)
--- NOTE | 2019-12-22 18:23 | Cesarean Section Operative ---
Procedure Procedure Note Pre-operative Diagnosis: Brianna Hayden is a 24 /Para 1 / ,Gestational Age 37 2/7 weeks preeclampsia, severe; breech Post-operative Diagnosis: same, uterine fibroids, papillary ovarian mass on the right ovary, fibroma on left ovary Procedure: Primary low transverse section; bilateral ovarian biopsies/excision of mass Physician: KAYODE BUNN Estimated blood loss: 800 mL Disposition: stable Findings: Viable male infant, Apgars 8/9, weight 7#7ounces, intact placenta, 3vc, right ovary with papillary lesions on the ovary, enlarged ovary, left ovary with fibromatous lesion on the ovary, uterine fibroids, largest 4 cm and exophytic on the anterior. Indications:Brianna Hayden is a 24 /Para 1 / ,Gestational Age 37 2/7 weeks preeclampsia, severe; breech She has had increasing proteinuria over the last few days with increased weight. Blood pressure has been mildly increased. However, due to worsening proteinuria in the severe range today, she will be delivered. she has received betamethasone x 2 doses. On exam today her cervix is unfavorable and the presenting part is not palpable. She thought head was down, but on US fetus is breech with head to the upper left. due to the worsening proteinuria and elevated blood pressures (despite not severe, the proteinuria is in the severe range), and unfavorable cervix/with inability to check her cervix easily, I do not recommend external cephalic version. She was sent to the hospital for monitoring and labs. She has even higher protein on admission. there were no blood pressures in the severe range, requiring antihypertensives. She remained NPO but the CS was delayed until 1730 as she had had a full breakfast. due to the proteinuria in severe range, magnesium sulfate was started for seizure prophylaxis. Procedure Details: The patient was seen in pre-op and the procedure was discussed with the patient in full, including the risks, benefits, and alternatives. All questions were answered. The patient was taken to the operating room and a time out was performed, verifying patient and procedure. After spinal anesthesia was placed by our anesthesia colleagues, the patient was placed in the dorsal supine with leftward tilt for uterine displacement.~ Her ab domen was then prepped and draped in the typical sterile fashion. A Pfannenstiel skin incision was made using a scalpel and carried down through the underlying fascia. The fascia was incised in the midline and tented up using Jr clamps. On both the inferior and superior fascia side the rectus muscle was dissected off bluntly and sharply using Pink scissors. The peritoneum was identified and entered bluntly in the midline. This was then stretched laterally using manual strength. After entering the abdominal cavity and confirming lack of intraperitoneal adhesions, a large Danilo retractor was placed and the lower uterine segment was visualized. A scalpel was utilized to make a low transverse uterine incision. Amniotomy was performed with an Allis clamp with return of clear fluid. The 's breech was presenting with the right hip. I could easily grasp the feet and these were grasped and brought to the level of the incision. I then delivered the fetus up to the level of the scapulae and then rotated to allow for delivery of the arms by flexing across the chest. The head was then delivered with assistance of the Gguskwhx-Ndaajjs-Yvgl maneuver. Mouth and nares were suctioned with bulb suction. After the umbilical cord was clamped and cut, the was handed off to the pediatric staff. A sample of cord blood was then obtained. The placenta was delivered intact via uterine massage. The uterus was cleared of all clots and debris. The uterine incision was closed using 0 Vicryl in a running locked fashion. A second imbricated layer was placed using 0 Vicryl in a running fashion as well. The bilateral tubes and appeared normal, but there was a papillary lesion on the right ovary near the tube. This was grasped with an allis clamp and then excised. The base was sewn with a 3-0 Vicryl in a figure of eight fashion to control bleeding. The left ovary also had a lesion, but this appeared more fibrotic, but it was also removed in a similar fashion. Each ovary was noted to be larger than normal at the time of delivery. There were no other masses noted on the ovaries and the tubes appeared normal. There were small uterine fibroids throughout the uterus, the largest was on the upper anterior uterus and was subserosal and about 4 cm in diameter. There was good hemostasis. The abdominal gutters were cleared of all clots and debris. A final check of the uterine incision showed it to be hemostatic. The peritoneum was closed using 3-0 Vicryl in a running fashion. The muscles were reapproximated with loose stitches of 3-0 Vicryl. The fascia was closed with 0 Vicryl in a running fashion. The subcutaneous space was hemostatic, and irrigated. The subcutaneous space was closed with 0 Plain in several single interrupted stitches. The skin was then closed using 4-0 Monocryl in a running subcuticular fashion. The skin edges were reapproximated together and were hemostatic. A pressure dressing was applied. All sponge, lap and needle counts were correct at the end of the procedure per nursing. Vitals - Labs Vital Signs - I&O Vital Signs Date Time Temp Pulse Resp B/P (MAP) Pulse Ox O2 Delivery O2 Flow Rate FiO2 12/22/19 14:00 74 18 133/84 (100) 99 Room Air 12/22/19 13:00 83 18 137/91 (106) 99 Room Air 12/22/19 12:32 37.6 81 18 98 Room Air 12/22/19 12:15 37.6 81 18 159/97 (117) 99 Room Air 12/22/19 11:25 37.1 78 18 139/93 (108) 99 Room Air Labs Laboratory Tests 12/22/19 11:45: Urine Color YELLOW, Urine Clarity CLEAR, Urine pH 7.0, Urine Specific [place] 1.025H, Urine Protein 3+H, Urine Glucose (UA) NEGATIVE, Urine Ketones NEGATIVE, Urine Nitrite NEGATIVE, Urine Bilirubin NEGATIVE, Urine Urobilinogen 0.2, Urine Leukocyte Esterase TRACEH, Urine RBC (Auto) TRACE-I, Urine RBC RARE, Urine WBC RARE, Urine Squamous Epithelial Cells 10-25H, Urine Crystals NONE, Urine Bacteria TRACE, Urine Casts PRESENT, Urine Hyaline Casts RARE, Urine Mucus NE GATIVE, Urine Culture Indicated NO, Urine Creatinine 76, Urine Protein/Creatinine Ratio 17.07 12/22/19 11:50: White Blood Count 18.3H, Red Blood Count 3.53L, Hemoglobin 9.5L, Hematocrit 30L, Mean Corpuscular Volume 85, Mean Corpuscular Hemoglobin 27, Mean Corpuscular Hemoglobin Concent 32, Red Cell Distribution Width 17.7H, Platelet Count 194, Mean Platelet Volume 11.1H, Neutrophils (%) (Auto) 78H, Lymphocytes (%) (Auto) 12, Monocytes (%) (Auto) 10, Eosinophils (%) (Auto) 0, Basophils (%) (Auto) 0, Neutrophils # (Auto) 14.3H, Lymphocytes # (Auto) 2.2, Monocytes # (Auto) 1.7H, Eosinophils # (Auto) 0.0, Basophils # (Auto) 0.1, Neutrophils % (Manual) 71, Lymphocytes % (Manual) 19, Monocytes % (Manual) 10, Eosinophils % (Manual) 0, Basophils % (Manual) 0, Band Neutrophils 0, Polychromasia SLIGHT, Anisocytosis SLIGHT, Sodium Level 139, Potassium Level 4.0, Chloride Level 109H, Carbon Dioxide Level 20L, Anion Gap 10, Blood Urea Nitrogen 10, Creatinine 0.56L, Estimat Glomerular Filtration Rate > 60, BUN/Creatinine Ratio 18, Glucose Level 70, Uric Acid 4.5, Calcium Level 7.8L, Corrected Calcium 8.8, Total Bilirubin 0.2, Aspartate Amino Transf (AST/SGOT) 23, Alanine Aminotransferase (ALT/SGPT) 13, Alkaline Phosphatase 133, Lactate Dehydrogenase 214, Total Protein 5.3L, Albumin 2.8L KAYODE BUNN DO Dec 22, 2019 18:23
[2019-12-22] MEDS ORDERED: LACTATED RINGERS 1,000 ML IV PRN (18:41)
[2019-12-22] MEDS: KETOROLAC 30 MG/ML VIAL IV SCH (19:08)
--- NOTE | 2019-12-22 19:40 | NUR ---
Pt. to rm 308 via bed from recovery following p c/s per Margaret Sales, disaster recovery analyst. Pt. oriented to rm, call light given, info papers given & explained, pt. verbalized understanding. SO & to rm w/pt. Calf SCDs on. VS taken & initial assessment completed. POC reviewed w/pt, pt. verbalized understanding, clear liquid tray given.
[2019-12-22] MEDS: CATHETER FLUSH 10 ML SYR IV SCH (20:08)
--- NOTE | 2019-12-22 20:28 | NUR ---
Called Dr. Soliz to verify diet orders per pt's request, voices desire to eat "solid food", & update given including BPs, no new orders rc'd, will cont. to monitor.
[2019-12-22] MEDS ORDERED: CATHETER FLUSH 10 ML SYR IV SCH (22:00)
[2019-12-22] MEDS: DOCUSATE SODIUM 100 MG (COLACE) CAP PO SCH (22:08)
[2019-12-22] MEDS: ACETAMINOPHEN 500 MG TAB (TYLENOL) PO SCH (22:08)
[2019-12-23] VITALS (20 sets, daily range): BP systolic 115–149; BP diastolic 71–102
[2019-12-23] MEDS: MAGNESIUM SULFATE DRIP 500 ML IV SCH ×2 (02:07→12:26)
[2019-12-23] MEDS: KETOROLAC 30 MG/ML VIAL IV SCH ×3 (02:07→14:07)
[2019-12-23] MEDS: D5 LR IV SOLUTION 1,000 ML IV SCH ×3 (02:45→16:00)
[2019-12-23] MEDS: CATHETER FLUSH 10 ML SYR IV SCH ×3 (02:45→14:24)
[2019-12-23] MEDS ORDERED: MILK OF MAGNESIA 400 MG/5 ML 30 ML UDC PO PRN (05:00)
[2019-12-23] MEDS: ACETAMINOPHEN 500 MG TAB (TYLENOL) PO SCH ×3 (06:09→21:22)
--- NOTE | 2019-12-23 07:51 | Anesthesia-Regional Post-Op ---
Regional Patient Condition Mental Status: Alert, Oriented x3 Circulation: Same as Pre-Op Headache: Absent Sensation: Full Recovery Motor Block: Absent Post Op Complications Complications None Follow Up Care/Instructions Patient Instructions None needed. Anesthesia/Patient Condition Patient is doing well, no complaints, stable vital signs, no apparent adverse anesthesia problems. No complications reported per nursing. BULL GERMAIN CRNA Dec 23, 2019 07:51
[2019-12-23] MEDS: DOCUSATE SODIUM 100 MG (COLACE) CAP PO SCH ×2 (08:28→21:22)
[2019-12-23 08:32] LABS: BASOPHILS % (AUTO) 0 % (0-10); EOSINOPHILS % (AUTO) 0 % (0-10); HEMATOCRIT 27 % (35-52); HEMOGLOBIN 8.5 G/DL (11.5-16.0); LYMPHOCYTES # (AUTO) 1.7 X 10^3 (1.0-4.0); LYMPHOCYTES % (AUTO) 7 % (12-44); MEAN CORPUSCULAR HEMOGLOBIN 27 PG (25-34); MEAN CORPUSCULAR HGB CONC 32 G/DL (32-36); MEAN CORPUSCULAR VOLUME 85 FL (80-99); MEAN PLATELET VOLUME 11.1 FL (7.4-10.4); MONOCYTES # (AUTO) 1.5 X 10^3 (0.0-1.0); MONOCYTES % (AUTO) 6 % (0-12); NEUTROPHILS # (AUTO) 21.6 X 10^3 (1.8-7.8); NEUTROPHILS % (AUTO) 87 % (42-75); PLATELET COUNT 242 10^3/uL (130-400); RED CELL DISTRIBUTION WIDTH 17.9 % (10.0-14.5); WHITE BLOOD COUNT 24.9 10^3/uL (4.3-11.0)
[2019-12-23 08:50] LABS: ALANINE AMINOTRANSFERASE 14 U/L (0-55); ALBUMIN 2.5 GM/DL (3.2-4.5); ALKALINE PHOSPHATASE 113 U/L (40-136); BILIRUBIN,TOTAL 0.1 MG/DL (0.1-1.0); BUN/CREATININE RATIO 14; CALCIUM 6.5 MG/DL (8.5-10.1); CARBON DIOXIDE 19 MMOL/L (21-32); CHLORIDE 102 MMOL/L (98-107); CREATININE SERUM 0.63 MG/DL (0.60-1.30); GFR ESTIMATED > 60; GLUCOSE 113 MG/DL (70-105); POTASSIUM 4.5 MMOL/L (3.6-5.0); SODIUM 132 MMOL/L (135-145); TOTAL PROTEIN 4.7 GM/DL (6.4-8.2); URIC ACID 5.3 MG/DL (2.6-7.2)
--- NOTE | 2019-12-23 10:11 | Postpartum Progress Note ---
Post Op Post-operative Day #1 s/p PLTCS severe preeclampsia/ she has not yet started to diurese well. Magnesium sulfate x 24 hours. Subjective: Patient is without complaints. Bedrest due to Magnesium Sulfate. Tolerating a regular diet without nausea or vomiting. Normal lochia. Pain is well controlled with oral pain medications. Passing flatus. breast feeding/pumping Objective: Laboratory Tests Test 12/22/19 11:45 12/22/19 11:50 12/23/19 08:15 Range/Units Urine Color YELLOW Urine Clarity CLEAR Urine pH 7.0 5-9 Urine Specific [place] 1.025 H 1.016-1.022 Urine Protein 3+ H NEGATIVE Urine Glucose (UA) NEGATIVE NEGATIVE Urine Ketones NEGATIVE NEGATIVE Urine Nitrite NEGATIVE NEGATIVE Urine Bilirubin NEGATIVE NEGATIVE Urine Urobilinogen 0.2 < = 1.0 MG/DL Urine Leukocyte Esterase TRACE H NEGATIVE Urine RBC (Auto) TRACE-I NEGATIVE Urine RBC RARE /HPF Urine WBC RARE /HPF Urine Squamous Epithelial Cells 10-25 H /HPF Urine Crystals NONE /LPF Urine Bacteria TRACE /HPF Urine Casts PRESENT /LPF Urine Hyaline Casts RARE /LPF Urine Mucus NEGATIVE /LPF Urine Culture Indicated NO Urine Creatinine 76 30-125 MG/DL Urine Protein/Creatinine Ratio 17.07 White Blood Count 18.3 H 24.9 H 4.3-11.0 10^3/uL Red Blood Count 3.53 L 3.14 L 4.35-5.85 10^6/uL Hemoglobin 9.5 L 8.5 L 11.5-16.0 G/DL Hematocrit 30 L 27 L 35-52 % Mean Corpuscular Volume 85 85 80-99 FL Mean Corpuscular Hemoglobin 27 27 25-34 PG Mean Corpuscular Hemoglobin Concent 32 32 32-36 G/DL Red Cell Distribution Width 17.7 H 17.9 H 10.0-14.5 % Platelet Count 194 242 130-400 10^3/uL Mean Platelet Volume 11.1 H 11.1 H 7.4-10.4 FL Neutrophils (%) (Auto) 78 H 87 H 42-75 % Lymphocytes (%) (Auto) 12 7 L 12-44 % Monocytes (%) (Auto) 10 6 0-12 % Eosinophils (%) (Auto) 0 0 0-10 % Basophils (%) (Auto) 0 0 0-10 % Neutrophils # (Auto) 14.3 H 21.6 H 1.8-7.8 X 10^3 Lymphocytes # (Auto) 2.2 1.7 1.0-4.0 X 10^3 Monocytes # (Auto) 1.7 H 1.5 H 0.0-1.0 X 10^3 Eosinophils # (Auto) 0.0 0.0 0.0-0.3 10^3/uL Basophils # (Auto) 0.1 0.0 0.0-0.1 10^3/uL Neutrophils % (Manual) 71 % Lymphocytes % (Manual) 19 % Monocytes % (Manual) 10 % Eosinophils % (Manual) 0 % Basophils % (Manual) 0 % Band Neutrophils 0 % Polychromasia SLIGHT Anisocytosis SLIGHT Sodium Level 139 132 L 135-145 MMOL/L Potassium Level 4.0 4.5 3.6-5.0 MMOL/L Chloride Level 109 H 102 98-107 MMOL/L Carbon Dioxide Level 20 L 19 L 21-32 MMOL/L Anion Gap 10 11 5-14 MMOL/L Blood Urea Nitrogen 10 9 7-18 MG/DL Creatinine 0.56 L 0.63 0.60-1.30 MG/DL Estimat Glomerular Filtration Rate > 60 > 60 BUN/Creatinine Ratio 18 14 Glucose Level 70 113 H 70-105 MG/DL Uric Acid 4.5 5.3 2.6-7.2 MG/DL Calcium Level 7.8 L 6.5 L 8.5-10.1 MG/DL Corrected Calcium 8.8 7.7 L 8.5-10.1 MG/DL Total Bilirubin 0.2 0.1 0.1-1.0 MG/DL Aspartate Amino Transf (AST/SGOT) 23 26 5-34 U/L Alanine Aminotransferase (ALT/SGPT) 13 14 0-55 U/L Alkaline Phosphatase 133 113 40-136 U/L Lactate Dehydrogenase 214 311 H 125-220 U/L Total Protein 5.3 L 4.7 L 6.4-8.2 GM/DL Albumin 2.8 L 2.5 L 3.2-4.5 GM/DL Physical Exam: General - Alert and oriented, no apparent distress Abdomen - Soft, appropriately tender to palpation, non-distended, fundus firm at umbilicus Incision - clean, dry and intact; no erythema or induration, no drainage Extremities - 3+ edema, negative Neville's bilaterally, minimal DTR Assessment: 1. post-operative day # 1, status post PLTCS, breech; severe preeclampsia. Recovering well, hemodynamically stable 2. Antepartum and Acute blood loss anemia 3. severe preeclampsia Plan: Routine post-operative care. Encourage breast feeding. Encourage ambulation. VTE prophylaxis: SCDs. Ferrous sulfate supplementation. Plan for discharge likely on . Vitals - Labs Vital Signs - I&O Vital Signs Date Time Temp Pulse Resp B/P (MAP) Pulse Ox O2 Delivery O2 Flow Rate FiO2 12/23/19 10:00 35.6 91 18 117/77 (90) 100 Room Air 12/23/19 09:00 36.0 94 18 122/80 (94) 100 Room Air 12/23/19 08:00 36.0 93 18 115/77 (90) 97 Room Air 12/23/19 07:00 36.7 90 20 115/77 (90) 100 Room Air 12/23/19 06:00 36.6 84 20 124/82 (96) 100 Room Air 12/23/19 05:00 90 18 124/82 (96) 99 Room Air 12/23/19 04:00 36.4 80 20 123/81 (95) 100 Room Air 12/23/19 03:00 36.3 87 20 125/82 (96) 99 Room Air 12/23/19 02:00 84 18 131/82 (98) 99 Room Air 12/23/19 01:00 36.1 80 20 149/102 (118) 100 Room Air 12/23/19 00:00 36.4 80 20 135/92 (106) 99 Room Air 12/22/19 23:00 75 18 134/92 (106) 100 Room Air 12/22/19 22:00 36.5 78 20 127/83 (98) 99 Room Air 12/22/19 21:17 Room Air 12/22/19 21:00 36.5 82 18 144/96 (112) 98 Room Air 12/22/19 20:00 72 18 157/108 (124) 100 Room Air 12/22/19 19:40 36.6 80 18 150/100 (117) 100 Room Air 12/22/19 19:31 37.2 18 140/103 (115) 100 Room Air 12/22/19 19:28 Room Air 12/22/19 19:20 14 133/106 (115) 100 Room Air 12/22/19 19:20 Room Air 12/22/19 19:15 134/84 (101) 12/22/19 19:11 Room Air 12/22/19 19:11 17 142/109 (120) 100 Room Air 12/22/19 19:00 17 133/103 (113) 100 Room Air 12/22/19 18:55 Room Air 12/22/19 18:50 13 100 Room Air 12/22/19 18:40 22 125/93 (104) 100 Room Air 12/22/19 18:37 36.1 20 133/100 (111) 100 Room Air 12/22/19 18:37 Room Air 12/22/19 17:10 86 18 134/92 (106) 99 Room Air 12/22/19 16:40 81 18 129/76 (93) 98 Room Air 12/22/19 16:10 83 18 125/78 (94) 98 Room Air 12/22/19 15:35 80 18 124/79 (94) 98 Room Air 12/22/19 15:10 73 18 130/76 (94) 99 Room Air 12/22/19 14:35 72 18 142/92 (109) 98 Room Air 12/22/19 14:00 74 18 133/84 (100) 99 Room Air 12/22/19 13:00 83 18 137/91 (106) 99 Room Air 12/22/19 12:32 37.6 81 18 98 Room Air 12/22/19 12:15 37.6 81 18 159/97 (117) 99 Room Air 12/22/19 11:25 37.1 78 18 139/93 (108) 99 Room Air I & O 12/23/19 07:00 Intake Total 2010 ml Output Total 30 ml Balance 1980 ml Labs Laboratory Tests 12/22/19 11:45: Urine Color YELLOW, Urine Clarity CLEAR, Urine pH 7.0, Urine Specific [place] 1.025H, Urine Protein 3+H, Urine Glucose (UA) NEGATIVE, Urine Ketones NEGATIVE, Urine Nitrite NEGATIVE, Urine Bilirubin NEGATIVE, Urine Urobilinogen 0.2, Urine Leukocyte Esterase TRACEH, Urine RBC (Auto) TRACE-I, Urine RBC RARE, Urine WBC RARE, Urine Squamous Epithelial Cells 10-25H, Urine Crystals NONE, Urine Bacteria TRACE, Urine Casts PRESENT, Urine Hyaline Casts RARE, Urine Mucus NE GATIVE, Urine Culture Indicated NO, Urine Creatinine 76, Urine Protein/Creatinine Ratio 17.07 12/22/19 11:50: White Blood Count 18.3H, Red Blood Count 3.53L, Hemoglobin 9.5L, Hematocrit 30L, Mean Corpuscular Volume 85, Mean Corpuscular Hemoglobin 27, Mean Corpuscular Hemoglobin Concent 32, Red Cell Distribution Width 17.7H, Platelet Count 194, Mean Platelet Volume 11.1H, Neutrophils (%) (Auto) 78H, Lymphocytes (%) (Auto) 12, Monocytes (%) (Auto) 10, Eosinophils (%) (Auto) 0, Basophils (%) (Auto) 0, Neutrophils # (Auto) 14.3H, Lymphocytes # (Auto) 2.2, Monocytes # (Auto) 1.7H, Eosinophils # (Auto) 0.0, Basophils # (Auto) 0.1, Neutrophils % (Manual) 71, Lymphocytes % (Manual) 19, Monocytes % (Manual) 10, Eosinophils % (Manual) 0, Basophils % (Manual) 0, Band Neutrophils 0, Polychromasia SLIGHT, Anisocytosis SLIGHT, Sodium Level 139, Potassium Level 4.0, Chloride Level 109H, Carbon Dioxide Level 20L, Anion Gap 10, Blood Urea Nitrogen 10, Creatinine 0.56L, Estimat Glomerular Filtration Rate > 60, BUN/Creatinine Ratio 18, Glucose Level 70, Uric Acid 4.5, Calcium Level 7.8L, Corrected Calcium 8.8, Total Bilirubin 0.2, Aspartate Amino Transf (AST/SGOT) 23, Alanine Aminotransferase (ALT/SGPT) 13, Alkaline Phosphatase 133, Lactate Dehydrogenase 214, Total Protein 5.3L, Albumin 2.8L 12/23/19 08:15: White Blood Count 24.9H, Red Blood Count 3.14L, Hemoglobin 8.5L, Hematocrit 27L, Mean Corpuscular Volume 85, Mean Corpuscular Hemoglobin 27, Mean Corpuscular Hemoglobin Concent 32, Red Cell Distribution Width 17.9H, Platelet Count 242, Mean Platelet Volume 11.1H, Neutrophils (%) (Auto) 87H, Lymphocytes (%) (Auto) 7L, Monocytes (%) (Auto) 6, Eosinophils (%) (Auto) 0, Basophils (%) (Auto) 0, Neutrophils # (Auto) 21.6H, Lymphocytes # (Auto) 1.7, Monocytes # (Auto) 1.5H, Eosinophils # (Auto) 0.0, Basophils # (Auto) 0.0, Sodium Level 132L, Potassium Level 4.5, Chloride Level 102, Carbon Dioxide Level 19L, Anion Gap 11, Blood Urea Nitrogen 9, Creatinine 0.63, Estimat Glomerular Filtration Rate > 60, B UN/Creatinine Ratio 14, Glucose Level 113H, Uric Acid 5.3, Calcium Level 6.5L, Corrected Calcium 7.7L, Total Bilirubin 0.1, Aspartate Amino Transf (AST/SGOT) 26, Alanine Aminotransferase (ALT/SGPT) 14, Alkaline Phosphatase 113, Lactate Dehydrogenase 311H, Total Protein 4.7L, Albumin 2.5L KAYODE BUNN DO Dec 23, 2019 10:11
--- NOTE | 2019-12-23 14:43 | NUR ---
received report from Tootie KINCAID to assume nursing care
--- NOTE | 2019-12-23 17:30 | NUR ---
MAGNESIUM IV INFUSED TIMES 24 HOURS, MAGNESIUM IV AND IV FLUIDS DC INSTRUCTED. [place] DC, URINE OUTPUT 2250 THIS SHIFT.
[2019-12-23] MEDS: IBUPROFEN 600 MG (MOTRIN) TAB PO SCH ×2 (17:32→23:50)
[2019-12-23] MEDS: FERROUS SULF 325 MG (IRON) TAB PO SCH (17:32)
[2019-12-24 04:22] VITALS: BP 147/94
[2019-12-24] MEDS: ACETAMINOPHEN 500 MG TAB (TYLENOL) PO SCH (06:17)
[2019-12-24] MEDS: IBUPROFEN 600 MG (MOTRIN) TAB PO SCH ×2 (06:19→11:42)
[2019-12-24] MEDS: FERROUS SULF 325 MG (IRON) TAB PO SCH (08:19)
[2019-12-24] MEDS: DOCUSATE SODIUM 100 MG (COLACE) CAP PO SCH (08:19)
[2019-12-24 08:25] VITALS: BP 138/91
--- NOTE | 2019-12-24 08:41 | Postpartum Progress Note ---
Post Op Post-operative Day #2 s/p PLTCS she is not . she states "it isn't working" Magnesium stopped at 1730 last night. UO has increased with diuresis. though not recorded after discontinuation of the the park Subjective: Patient is without complaints. Ambulating, voiding after park removed. Tolerating a regular diet without nausea or vomiting. Normal lochia. Pain is well controlled with oral pain medications. Passing flatus. bottle feeding. [] Objective: 12/23/19 12/23/19 12/24/19 12/24/19 21:10 23:50 04:22 08:25 Temp 36.8 36.6 36.6 37.2 Pulse 98 85 75 72 Resp 18 18 18 18 B/P (MAP) 130/88 (102) 120/82 (95) 147/94 (111) 138/91 (107) Pulse Ox 98 96 96 99 O2 Delivery Room Air Room Air Room Air Room Air 12/24/19 00:00 Intake Total 2500 ml Output Total 2250 ml Balance 250 ml Physical Exam: General - Alert and oriented, no apparent distress Abdomen - Soft, appropriately tender to palpation, non-distended, fundus firm at umbilicus Incision - clean, dry and intact; no erythema or induration, no drainage Extremities - no edema, negative Neville's bilaterally [ Assessment: 1. post-operative day # 2, status post PLTCS; breech. Recovering well, hemodynamically stable 2. Acute blood loss anemia 3. severe preeclampsia (doing better, but still with come elevated blood pressures) Plan: Routine post-operative care. Encourage breast feeding. Encourage ambulation. VTE prophylaxis: SCDs. Ferrous sulfate supplementation. Plan for discharge [] Vitals - Labs Vital Signs - I&O Vital Signs Date Time Temp Pulse Resp B/P (MAP) Pulse Ox O2 Delivery O2 Flow Rate FiO2 12/24/19 08:25 37.2 72 18 138/91 (107) 99 Room Air 12/24/19 04:22 36.6 75 18 147/94 (111) 96 Room Air 12/23/19 23:50 36.6 85 18 120/82 (95) 96 Room Air 12/23/19 21:10 36.8 98 18 130/88 (102) 98 Room Air 12/23/19 17:30 37.0 92 18 124/75 (91) 96 Room Air 12/23/19 16:20 37.4 95 18 121/71 (88) 98 Room Air 12/23/19 15:00 37.0 92 18 126/76 (93) 98 Room Air 12/23/19 14:00 91 16 127/84 (98) 97 Room Air 12/23/19 13:00 36.6 91 18 131/85 (100) 98 Room Air 12/23/19 12:00 36.0 85 18 132/90 (104) 99 Room Air 12/23/19 11:00 36.7 88 18 125/83 (97) 100 Room Air 12/23/19 10:00 35.6 91 18 117/77 (90) 100 Room Air 12/23/19 09:00 36.0 94 18 122/80 (94) 100 Room Air I & O 12/24/19 07:00 Intake Total 3300 ml Output Total 3550 ml Balance -250 ml KAYODE BUNN DO Dec 24, 2019 08:41
[2019-12-24] MEDS ORDERED: ACET-93 PO (08:44)
[2019-12-24] MEDS ORDERED: OXYC5TAB96 PO (08:44)
[2019-12-24] MEDS ORDERED: IBUP-844 PO (08:44)
[2019-12-24] MEDS ORDERED: [UNRECOGNIZED DRUG - CODE] PO (08:44)
[2019-12-24] MEDS ORDERED: FERR325T18 PO (08:44)
--- NOTE | 2019-12-24 08:48 | Short Stay Summary ---
Discharge Summary Hospital Course Was the Problem List Reviewed?: Yes Problems/Dx: (1) Delivery by section (2) Acute blood loss as cause of postoperative anemia (3) Breech presentation Qualifiers: Qualified Codes: O32.1XX0 - Maternal care for breech presentation, not applicable or unspecified (4) Preeclampsia Qualifiers: Qualified Codes: O14.93 - Unspecified pre-eclampsia, third trimester (5) Mass, ovarian Status: Resolved Assessment & Plan: bilateral ovarian masses removed at time of section Final Diagnosis: Breech presentation, severe preeclampsia; anemia Hospital Course Date of Admission: Dec 22, 2019 at 11:10 Admission Diagnosis : Family Physician/Provider: Bridgett Noel Radio Control Crane Operator Date of Discharge: 12/24/19 Discharge Diagnosis: [ ] Hospital Course: [ ] Labs and Pending Lab Test: Home Meds Active [prilosec] 20 Mg PO DAILY Reported Zyrtec (Cetirizine HCl) 10 Mg Capsule 10 Mg PO DAILY Flonase Allergy Relief (Fluticasone Propionate) 9.9 Ml [place].susp 1 [place] NS DAILY 1 SPRAY EACH NARE DAILY Vitamin Tablet ( Vit No.124/Iron/FA) 1 Each Tablet 1 Each PO Assessment/Pt Instructions Follow up in the office in 1 week for incision check/BP check with RN/Anjelica [address] exam [address] Dr[address] Bunn Discharge Instructions Discharge Diet: No Restrictions Activity as Tolerated: Yes (no lifting over 25 lbs, no driving, nothing in the vagina) Discharge Physical Examination General Appearance: Alert, Oriented X3 HEENT: Atraumatic Respiratory: Clear to Auscultation, Normal Air Movement Cardiovascular: Regular Rate, Normal S1, Normal S2 Abdominal: Normal Bowel Sounds Extremities: Other (2+ edema) Skin: No Breakdown Neuro: Normal Gait Allergies: Coded Allergies: Penicillins (Unverified Allergy, Mild, HIVES, Has received Cefazolin in the past, 12/22/19) Sulfa (Sulfonamide Antibiotics) (Verified Allergy, Mild, HIVES, 04/18/19) Discharge Summary Date of Admission Dec 22, 2019 at 11:10 Date of Discharge 12-24-2019- Discharge Date: Dec 24, 2019 Admission Diagnosis breech 37 weeks severe preeclampsia Consults/Procedures Procedures section Clinical Quality Measures DVT/VTE Risk/Contraindication: Risk Factor Score Per Nursin RFS Level Per Nursing on Admit: 1=Low/No VTE PPX KAYODE BUNN DO Dec 24, 2019 08:48
[2019-12-24 13:21] VITALS: BP 138/91
== END 2019-12-24 13:50 | disposition home or self-care (01) | DRG 787 ==
LOC: LDRP 11:10
PROVIDERS: ADMIT Obstetrics & Gynecology; ATTEND Obstetrics & Gynecology
PROC: 0UB20ZX Excision of Bilateral Ovaries, Open Approach, Diagnostic (ICD-10-PCS; 2019-12-22)
PROC: 10D00Z1 Extraction of Products of Conception, Low, Open Approach (ICD-10-PCS; principal; 2019-12-22 17:27)
DX: O14.14 Severe pre-eclampsia complicating childbirth (principal); O32.1XX0 Maternal care for breech presentation, not applicable or unspecified; O34.13 Maternal care for benign tumor of corpus uteri, third trimester; D25.2 Subserosal leiomyoma of uterus; D62 Acute posthemorrhagic anemia; O26.893 Other specified pregnancy related conditions, third trimester; D21.5 Benign neoplasm of connective and other soft tissue of pelvis; N83.8 Other noninflammatory disorders of ovary, fallopian tube and broad ligament; Z37.0 Single live birth; O99.02 Anemia complicating childbirth; O99.03 Anemia complicating the puerperium; Z3A.37 37 weeks gestation of pregnancy
CPT/HCPCS: 36415; 80053; 81000; 82570; 83615; 84156; 84550; 85007; 85025; 85027; 86850; 86900; 86901; 94664

== ENCOUNTER 2020-01-17 18:01 | Emergency (ER) | payer MEDICAID ==
[~2020-01-17] VITALS: Ht 149 cm; Wt 58.9 kg
[~2020-01-17 18:01] MED LIST changes: +ACET-93 PO; +FERR325T18 PO; +IBUP-844 PO; +OXYC5TAB96 PO; +[UNRECOGNIZED DRUG - CODE] PO
--- NOTE | 2020-01-17 18:18 | ED GU-Female ---
General Stated Complaint: UTI History of Present Illness Date Seen by Provider: January 17, 2020 Time Seen by Provider: 18:15 Initial Comments 24 year old female presents with UTI symptoms (burning with urination, lower abdominal pain) for approximately 1 week, worse today, with mild nausea. Reports increased water intake. Hx of recurrent UTIs. Had at this facility, 3 weeks ago, continues to have intermittent lochia. Has not been sexually active since . Denies back pain. Timing/Duration: week Severity/Quality: moderate, cramping Location: suprapubic Activities at Onset: none Associated Symptoms: abdominal pain, dysuria; No loss of bladder control, No lower back pain, No nausea/vomiting; urinary frequency Allergies and Home Medications Allergies Coded Allergies: Penicillins (Unverified Allergy, Mild, HIVES, Has received Cefazolin in the past, 12/22/19) Sulfa (Sulfonamide Antibiotics) (Verified Allergy, Mild, HIVES, 04/18/19) Home Medications Acetaminophen 500 Mg Tablet, 1,000 MG PO Q8HR Prescribed by: KAYODE BUNN on 12/24/19843 Ascorbic Acid/Ascorbate Sodium 250 Mg Tab.chew, 250 MG PO BID Prescribed by: KAYODE BUNN on 12/24/19843 Cetirizine HCl 10 Mg Capsule, 10 MG PO DAILY, (Reported) Ferrous Sulfate 325 Mg Tablet, 325 MG PO BID WITH MEALS take with vitamin C Prescribed by: KAYODE BUNN on 12/24/19843 Fluticasone Propionate 9.9 Ml [place].susp, 1 SPRAY NS DAILY, (Reported) 1 SPRAY EACH NARE DAILY Ibuprofen 600 Mg Tablet, 600 MG PO Q6H Prescribed by: KAYODE BUNN on 12/24/19843 Oxycodone HCl 5 Mg Tablet, 5 MG PO Q4HR PRN for To achieve TAG Prescribed by: KAYODE BUNN on 12/24/19843 [prilosec] , 20 MG PO DAILY Prescribed by: FRED ALAMO on 12/20/19 1414 Patient Home Medication List Home Medication List Reviewed: Yes Review of Systems Review of Systems Constitutional: no symptoms reported, see HPI Genitourinary: see HPI, burning, dysuria, frequency All Other Systemes Reviewed Negative Unless Noted: Yes Past Osqugud-Velhfl-Sijwfi Hx Past Med/Social Hx: Reviewed Nursing Past Med/Soc Hx Patient Social History Type Used: Cigarettes 2nd Hand Smoke Exposure: No Recent Foreign Travel: No Contact w/Someone Who Travel: No Recent Hopitalizations: No Immunizations Up To Date Tetanus Booster (TDap): Less than 5yrs PED Vaccines UTD: Yes Seasonal Allergies Seasonal Allergies: Yes Past Medical History Surgeries: Yes (TUBES IN EARS, wisdom teeth) Respiratory: Yes Asthma Currently Using CPAP: No Currently Using BIPAP: No Cardiac: No Neurological: No Reproductive Disorders: No Sexually Transmitted Disease: No HIV/AIDS: No Genitourinary: No Gastrointestinal: Yes Gastroesophageal Reflux, Chronic Constipation, Irritable Bowel Musculoskeletal: No Fractures Endocrine: No HEENT: No Loss of Vision: Denies Hearing Impairment: Denies Cancer: No Psychosocial: No Integumentary: No Blood Disorders: No Adverse Reaction/Blood Tranf: No (N/A) Family Medical History Asthma 19 MOTHER (copd) Hypertension 19 MOTHER Psychosocial problem 19 FATHER (bipolar) 19 MOTHER (depression) G8 SISTER (depression) No Family History of: Arnaud's disease No Pertinent Family Hx Physical Exam Vital Signs Vital Signs - First Documented 01/17/20 18:15 Temp 36.7 Pulse 107 Resp 20 B/P (MAP) 122/83 (96) Pulse Ox 100 Capillary Refill : Height, Weight, BMI Height: 4'11.00" Weight: 85lbs. 0.0oz. 38.250260wo; 31.37 BMI Method:Stated General Appearance: WD/WN, no apparent distress HEENT: PERRL/EOMI, normal ENT inspection, pharynx normal Cardiovascular: normal peripheral pulses, regular rate, rhythm, no edema Respiratory: chest non-tender, lungs clear, normal breath sounds Gastrointestinal: normal bowel sounds, soft; No distended, No guarding, No rebound; tenderness (generalized), other ( incsion well healed, no warmth, erythema or drainage) Neurologic/Psychiatric: no motor/sensory deficits, alert, normal mood/affect, oriented x 3 Progress/Results/Core Measures Suspected Sepsis SIRS Temperature: Pulse: Respiratory Rate: Blood Pressure / Mean: Results/Orders Lab Results Laboratory Tests Test 01/17/20 18:16 Range/Units Urine Color YELLOW Urine Clarity SL CLOUDY Urine pH 5.5 5-9 Urine Specific [place] 1.025 H 1.016-1.022 Urine Protein 2+ H NEGATIVE Urine Glucose (UA) NEGATIVE NEGATIVE Urine Ketones NEGATIVE NEGATIVE Urine Nitrite NEGATIVE NEGATIVE Urine Bilirubin NEGATIVE NEGATIVE Urine Urobilinogen 0.2 < = 1.0 MG/DL Urine Leukocyte Esterase 1+ H NEGATIVE Urine RBC (Auto) 1+ H NEGATIVE Urine RBC 2-5 H /HPF Urine WBC 5-10 H /HPF Urine Squamous Epithelial Cells 5-10 /HPF Urine Crystals NONE /LPF Urine Bacteria FEW H /HPF Urine Casts NONE /LPF Urine Mucus NEGATIVE /LPF Urine Culture Indicated YES My Orders Orders - NAKUL ZEPEDA Ua Culture If Indicated (01/17/20 18:04) Urine Bedside (01/17/20 18:04) Ondansetron Oral Dissolve Tab (Zofran (01/17/20 18:43) Ketorolac Injection (Toradol Injection) (01/17/20 18:43) Urine Culture (01/17/20 18:16) Vital Signs/I&O 01/17/20 18:15 Temp 36.7 Pulse 107 Resp 20 B/P (MAP) 122/83 (96) Pulse Ox 100 Capillary Refill : Departure Impression Primary Impression: UTI symptoms Disposition: HOME, SELF-CARE Condition: Improved Departure-Patient Inst. Decision time for Depature: 19:05 Referrals: [facility] [place] (PCP) Primary Care Physician MARILEE MEJIA APRN (Family) Primary Care Physician Patient Instructions: Urinary Tract Infection, Adult (DC) Add. Discharge Instructions: Increase water intake, 16 ounces every 2 hours while awake. Alternate between ibuprofen 600 mg and Tylenol 650 mg every 4 hours for pain or fever. Eat 1 cup of fresh blueberries or drink 1 cup of cranberry juice daily for the next 2 weeks. Eat 1 cup of yogurt daily. Take antibiotics as prescribed. 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 Return to the emergency department for new, urgent health care needs. Scripts Nitrofurantoin Monohyd/M-Cryst (Macrobid 100 mg Capsule) 100 Mg Capsule 1 TAB PO BID, #10 CAP 0 Refills Prov: NAKUL ZEPEDA 01/17/20 Copy Copies To 1: KAYODE BUNN AMY ARNP January 17, 2020 18:18
[2020-01-17] MEDS ORDERED: ONDANSETRON 4 MG (ZOFRAN) ORAL DISSOLVE TAB SL STA (18:43)
[2020-01-17] MEDS ORDERED: KETOROLAC 60 MG/2 ML VIAL IM STA (18:43)
[2020-01-17 18:47] LABS: BILIRUBIN,URINE NEGATIVE (NEGATIVE); CLARITY,URINE SL CLOUDY; COLOR,URINE YELLOW; GLUCOSE, URINE (UA) NEGATIVE (NEGATIVE); KETONES,URINE NEGATIVE (NEGATIVE); LEUKOCYTE ESTERASE ,URINE 1+ (NEGATIVE); NITRITE,URINE NEGATIVE (NEGATIVE); PH,URINE 5.5 (5-9); PROTEIN,URINE 2+ (NEGATIVE)
[2020-01-17 18:56] LABS: BACTERIA,URINE FEW /HPF
[2020-01-17] MEDS ORDERED: NITR-65 PO (19:13)
[2020-01-17] MEDS ORDERED: NITROFURANTOIN 100 MG (MACROBID) CAPSULE PO STA (19:14)
[2020-01-17 19:55] VITALS: BP 120/82
== END 2020-01-17 19:56 | disposition home or self-care (01) ==
LOC: EDUNIT# 18:01 → ER 18:02
DX: N39.0 Urinary tract infection, site not specified (principal); J45.909 Unspecified asthma, uncomplicated; K21.9 Gastro-esophageal reflux disease without esophagitis; Z88.0 Allergy status to penicillin; Z88.2 Allergy status to sulfonamides; Z79.51 Long term (current) use of inhaled steroids; Z82.49 Family history of ischemic heart disease and other diseases of the circulatory system
CPT/HCPCS: 81000; 84703; 87088; 99284

== ENCOUNTER 2020-06-04 17:34 | Emergency (ER) | payer MEDICAID ==
[~2020-06-04] VITALS: Ht 149.8 cm; Wt 46.7 kg
[~2020-06-04 17:34] MED LIST changes: +ASCO250T55 PO; +OXC5T PO; -OXYC5TAB96 PO; -PANT40TA3 PO; +PANT40TA52 PO; -[UNRECOGNIZED DRUG - CODE] PO
[2020-06-04 17:40] VITALS: BP 118/95
--- NOTE | 2020-06-04 18:20 | ED Cough/URI ---
General Chief Complaint: Cough/Cold/Flu Symptoms Stated Complaint: HEADACHE/RUNNY NOSE Nursing Triage Note: PT AMB TO RM 9 WITH COMPLAINT OF HEADACHE, NASAL CONGESTION. STATES HAS HAD NEGATIVE COVID, FLU, AND STREP WITHIN THE LAST WEEK. Sepsis Screen: No Definite Risk Source: patient Exam Limitations: no limitations History of Present Illness Date Seen by Provider: Jun 04, 2020 Time Seen by Provider: 17:35 Initial Comments This 24-year-old young lady presents to the emergency room with primary complaint of sinus congestion and pressure and mild cough. She has Rose been strapped for flu, strep, and COVID-19 by the clinic that she is still concerned about her symptoms. She is using Flonase twice daily. She is afebrile at this time. Allergies and Home Medications Allergies Coded Allergies: Penicillins (Unverified Allergy, Mild, HIVES, Has received Cefazolin in the past, 12/22/19) Sulfa (Sulfonamide Antibiotics) (Verified Allergy, Mild, HIVES, 04/18/19) Home Medications Acetaminophen 500 Mg Tablet, 1,000 MG PO Q8HR Prescribed by: KAYODE BUNN on 12/24/19843 Ascorbic Acid/Ascorbate Sodium 250 Mg Tab.chew, 250 MG PO BID Prescribed by: KAYODE BUNN on 12/24/19843 Cetirizine HCl 10 Mg Capsule, 10 MG PO DAILY, (Reported) Ferrous Sulfate 325 Mg Tablet, 325 MG PO BID WITH MEALS take with vitamin C Prescribed by: KAYODE BUNN on 12/24/19843 Fluticasone Propionate 9.9 Ml [place].susp, 1 SPRAY NS DAILY, (Reported) 1 SPRAY EACH NARE DAILY Ibuprofen 600 Mg Tablet, 600 MG PO Q6H Prescribed by: KAYODE BUNN on 12/24/19843 Nitrofurantoin Monohyd/M-Cryst 100 Mg Capsule, 1 TAB PO BID Prescribed by: NAKUL ZEPEDA on 01/17/201912 Oxycodone HCl 5 Mg Tablet, 5 MG PO Q4HR PRN for To achieve TAG Prescribed by: KAYODE BUNN on 12/24/19843 [prilosec] , 20 MG PO DAILY Prescribed by: FRED ALAMO on 12/20/19 1414 Patient Home Medication List Home Medication List Reviewed: Yes Review of Systems Review of Systems Constitutional: no symptoms reported EENTM: see HPI Respiratory: see HPI Cardiovascular: no symptoms reported Gastrointestinal: no symptoms reported Genitourinary: no symptoms reported : No Musculoskeletal: no symptoms reported Skin: no symptoms reported Psychiatric/Neurological: No Symptoms Reported Hematologic/Lymphatic: No Symptoms Reported Immunological/Allergic: no symptoms reported Past Okeygxx-Biabpi-Ducndu Hx Past Med/Social Hx: Reviewed Nursing Past Med/Soc Hx Patient Social History Alcohol Use: Denies Use Recreational Drug Use: No Type Used: Cigarettes 2nd Hand Smoke Exposure: No Recent Foreign Travel: No Contact w/Someone Who Travel: No Recent Infectious Disease Expo: No Recent Hopitalizations: No Immunizations Up To Date Tetanus Booster (TDap): Less than 5yrs PED Vaccines UTD: Yes Seasonal Allergies Seasonal Allergies: Yes Past Medical History Surgeries: Yes (TUBES IN EARS, wisdom teeth) Section Respiratory: Yes Asthma Currently Using CPAP: No Currently Using BIPAP: No Cardiac: No Neurological: No Reproductive Disorders: No Sexually Transmitted Disease: No HIV/AIDS: No Genitourinary: No Gastrointestinal: Yes Gastroesophageal Reflux, Chronic Constipation, Irritable Bowel Musculoskeletal: No Fractures Endocrine: No HEENT: No Loss of Vision: Denies Hearing Impairment: Denies Cancer: No Psychosocial: No Integumentary: No Blood Disorders: No Adverse Reaction/Blood Tranf: No (N/A) Family Medical History Reviewed Nursing Family Hx Asthma 19 MOTHER (copd) Hypertension 19 MOTHER Psychosocial problem 19 FATHER (bipolar) 19 MOTHER (depression) G8 SISTER (depression) No Family History of: Hunterdon's disease No Pertinent Family Hx Physical Exam Vital Signs - First Documented 06/04/20 17:40 Pulse 100 Resp 20 B/P (MAP) 118/95 (103) Pulse Ox 98 O2 Delivery Room Air Capillary Refill : Less Than 3 Seconds Height: 4'11.00" Weight: 85lbs. 0.0oz. 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, no motor/sensory deficits, alert, normal mood/affect, oriented x 3 Progress/Results/Core Measures Suspected Sepsis Recent Fever Within 48 Hours: No Infection Criteria Present: None New/Unexplained Altered Menta: No Sepsis Screen: No Definite Risk SIRS Temperature: Pulse: 100 Respiratory Rate: 20 Blood Pressure 118 /95 Mean: 103 Results/Orders Vital Signs/I&O 06/04/20 17:40 Pulse 100 Resp 20 B/P (MAP) 118/95 (103) Pulse Ox 98 O2 Delivery Room Air Capillary Refill : Less Than 3 Seconds Blood Pressure Mean: 103 Departure Impression Primary Impression: Upper respiratory infection Qualified Codes: J06.9 - Acute upper respiratory infection, unspecified Disposition: HOME, SELF-CARE Condition: Stable Departure-Patient Inst. Decision time for Depature: 18:15 Referrals: [facility]/ (PCP) Primary Care Physician MARILEE MEJIA APRN (Family) Primary Care Physician Patient Instructions: Viral Upper Respiratory Infection, Adult (DC) Add. Discharge Instructions: Continue with Flonase 2 sprays on each side twice a day. You may add [id number] Afrin decongestant spray for 3 days. Do not use longer than 3 days. If you continue to have sinus symptoms beyond 2 weeks or if the symptoms become severe in their intensity, contact your doctor to inquire about antibiotic therapy. For pain you may use ibuprofen up to 400 mg every 6 hours as needed and/or Tylen ol (acetaminophen) up to 650 mg every 6 hours as needed. Stay home from work until the result of your sons COVID 19 testing is known. Return to care or call your doctor if you have other problems or concerns. All discharge instructions reviewed with patient and/or family. Voiced understanding. Work/School Note: Work Release Form Date Seen in the Emergency Department: Jun 04, 2020 Return to Work: Jun 06, 2020 Restrictions: Return-No Fever (24hrs) Restrictions: May return to work if son's COVID 19 testing is negative. AUSTIN BAÑUELOS MD Jun 04, 2020 18:20
== END 2020-06-04 18:38 | disposition home or self-care (01) ==
LOC: EDUNIT# 17:34 → ER 17:36
DX: J06.9 Acute upper respiratory infection, unspecified (principal); J45.909 Unspecified asthma, uncomplicated; K58.1 Irritable bowel syndrome with constipation; K21.9 Gastro-esophageal reflux disease without esophagitis; Z82.49 Family history of ischemic heart disease and other diseases of the circulatory system; Z88.0 Allergy status to penicillin; Z88.2 Allergy status to sulfonamides; Z79.51 Long term (current) use of inhaled steroids
CPT/HCPCS: 99282

== ENCOUNTER 2020-06-14 18:40 | Emergency (ER) | payer MEDICAID ==
[~2020-06-14] VITALS: Ht 149.8 cm; Wt 46.0 kg
[2020-06-14 19:46] LABS: CLARITY,URINE CLEAR; COLOR,URINE YELLOW; GLUCOSE, URINE (UA) NEGATIVE (NEGATIVE); KETONES,URINE NEGATIVE (NEGATIVE); LEUKOCYTE ESTERASE ,URINE NEGATIVE (NEGATIVE); NITRITE,URINE NEGATIVE (NEGATIVE); PH,URINE 5.5 (5-9); PROTEIN,URINE TRACE (NEGATIVE)
[2020-06-14 20:05] LABS: AMORPHOUS SEDIMENT,UR RARE AMOR URATES /LPF; BACTERIA,URINE TRACE /HPF; BILIRUBIN,URINE 1+ (NEGATIVE)
--- NOTE | 2020-06-14 20:12 | ED GU-Female ---
General Chief Complaint: - Urinary Stated Complaint: ABD PAIN;PAINFUL URINATION;URINARY FREQUENCY Nursing Triage Note: TO ED VIA POV AND AMBULATORY TO TRIAGE WITH C/O "UTI SYMPTOMS" FOR 2 WEEKS. Nursing Sepsis Screen: No Definite Risk Source: patient Exam Limitations: no limitations (LEO MOSER APRN) History of Present Illness Date Seen by Provider: Jun 14, 2020 Time Seen by Provider: 19:45 (LEO MOSER APRN) Initial Comments 24y/o female presents to ED with 2wks of worsening lower abdominal and low back pain. Pain is described as sharp and constant and nothing makes pain worse or better. She reports having pain with urination, urinary urgency, urinary frequency, vaginal discharge, foul smelling odor, and dyspareunia. She says that she has had >5 UTIs in the past year that get better Abx but return within a couple of weeks. She currently has one sexual partner who she has been with for over a year and she a a 6months ago. Timing/Duration: changing over time Severity/Quality: moderate, sharp Location: RLQ, LLQ, suprapubic, right flank, left flank Radiation: suprapubic Associated Symptoms: dysuria, fever/chills (chills ), lower back pain, nausea/vomiting (nausea ), urinary frequency (TAYLER LOPEZ,MED STUDENT) Allergies and Home Medications Allergies Coded Allergies: Penicillins (Unverified Allergy, Mild, HIVES, Has received Cefazolin in the past, 12/22/19) Sulfa (Sulfonamide Antibiotics) (Verified Allergy, Mild, HIVES, 04/18/19) Home Medications Acetaminophen 500 Mg Tablet, 1,000 MG PO Q8HR Prescribed by: KAYODE BUNN on 12/24/19843 Ascorbic Acid/Ascorbate Sodium 250 Mg Tab.chew, 250 MG PO BID Prescribed by: KAYODE BUNN on 12/24/19843 Cetirizine HCl 10 Mg Capsule, 10 MG PO DAILY, (Reported) Ferrous Sulfate 325 Mg Tablet, 325 MG PO BID WITH MEALS take with vitamin C Prescribed by: KAYODE BUNN on 12/24/19843 Fluticasone Propionate 9.9 Ml [place].susp, 1 SPRAY NS DAILY, (Reported) 1 SPRAY EACH NARE DAILY Ibuprofen 600 Mg Tablet, 600 MG PO Q6H Prescribed by: KAYODE BUNN on 12/24/19 0844 Nitrofurantoin Monohyd/M-Cryst 100 Mg Capsule, 1 TAB PO BID Prescribed by: NAKUL ZEPEDA on 01/17/201912 Oxycodone Hcl 5 Mg Tablet, 5 MG PO Q4HR PRN for To achieve TAG Prescribed by: KAYODE BUNN on 12/24/19 0844 [prilosec] , 20 MG PO DAILY Prescribed by: FRED ALAMO on 12/20/19 1414 Patient Home Medication List Home Medication List Reviewed: Yes (LEO MOSER APRN) Review of Systems Review of Systems Constitutional: chills; No fever, No malaise, No weakness Respiratory: No cough, No dyspnea on exertion, No hemoptysis, No orthopnea, No short of breath Cardiovascular: No chest pain, No edema, No palpitations Gastrointestinal: RLQ, LLQ, constipation; No diarrhea, No hematemesis; nausea; No vomiting Genitourinary: discharge, dysuria, frequency, flank pain, urgency (TAYLER LOPEZ,MED STUDENT) Past [place]-Cngvlc-Hnhqse Hx Patient Social History Alcohol Use: Denies Use Recreational Drug Use: No Type Used: Cigarettes 2nd Hand Smoke Exposure: No Recent Foreign Travel: No Contact w/Someone Who Travel: No Recent Infectious Disease Expo: No Recent Hopitalizations: No Physical Abuse: No Sexual Abuse: No Mistreated: No Fear: No (LEO MOSER APRN) Immunizations Up To Date Tetanus Booster (TDap): Less than 5yrs PED Vaccines UTD: Yes (LEO MOSER APRN) Seasonal Allergies Seasonal Allergies: Yes (LEO MOSER APRN) Past Medical History Surgeries: Yes (TUBES IN EARS, wisdom teeth) Section Respiratory: Yes Asthma Currently Using CPAP: No Currently Using BIPAP: No Cardiac: No Neurological: No Reproductive Disorders: No Sexually Transmitted Disease: No HIV/AIDS: No Genitourinary: No Gastrointestinal: Yes Gastroesophageal Reflux, Chronic Constipation, Irritable Bowel Musculoskeletal: No Fractures Endocrine: No HEENT: No Loss of Vision: Denies Hearing Impairment: Denies Cancer: No Psychosocial: No Integumentary: No Blood Disorders: No Adverse Reaction/Blood Tranf: No (N/A) (LEO MOSER APRN) Family Medical History Asthma 19 MOTHER (copd) Hypertension 19 MOTHER Psychosocial problem 19 FATHER (bipolar) 19 MOTHER (depression) G8 SISTER (depression) No Family History of: Starr's disease No Pertinent Family Hx (LEO MOSER APRN) Physical Exam Vital Signs Vital Signs - First Documented 06/14/20 19:21 Temp 37.0 Pulse 82 Resp 16 B/P (MAP) 112/86 (95) O2 Delivery Room Air (TAYLER LOPEZ,MED STUDENT) Vital Signs Capillary Refill : Less Than 3 Seconds (LEO MOSER APRN) Height, Weight, BMI Height: 4'11.00" Weight: 85lbs. 0.0oz. 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 Patient's vaginal introitus was so narrow speculum could not be used. As such we did a blind swab for the wet prep/culture and gonorrhea chlamydia.) (LEO MOSER APRN) General Appearance: WD/WN, no apparent distress Cardiovascular: regular rate, rhythm, no edema, no gallop, no JVD, no murmur Respiratory: chest non-tender, lungs clear, normal breath sounds, no respiratory distress, no accessory muscle use, respiratory distress Gastrointestinal: no organomegaly, no pulsatile mass, distended, guarding, tenderness Back: CVA tenderness (R), CVA tenderness (L) Neurologic/Psychiatric: alert, normal mood/affect, oriented x 3 Skin: normal color, warm/dry (TAYLER LOPEZ,MED STUDENT) Progress/Results/Core Measures Suspected Sepsis Recent Fever Within 48 Hours: No Infection Criteria Present: Suspected New Infection New/Unexplained Altered Menta: No Sepsis Screen: No Definite Risk SIRS Temperature: Pulse: 82 Respiratory Rate: 16 Blood Pressure 112 /86 Mean: 95 (LEO MOSER APRN) Results/Orders Lab Results Laboratory Tests Test 06/14/20 19:25 Range/Units Urine Color YELLOW Urine Clarity CLEAR Urine pH 5.5 5-9 Urine Specific [place] >=1.030 1.016-1.022 Urine Protein TRACE H NEGATIVE Urine Glucose (UA) NEGATIVE NEGATIVE Urine Ketones NEGATIVE NEGATIVE Urine Nitrite NEGATIVE NEGATIVE Urine Bilirubin 1+ H NEGATIVE Urine Urobilinogen 1.0 < = 1.0 MG/DL Urine Leukocyte Esterase NEGATIVE NEGATIVE Urine RBC (Auto) NEGATIVE NEGATIVE Urine RBC NONE /HPF Urine WBC 2-5 /HPF Urine Crystals PRESENT H /LPF Urine Amorphous Sediment RARE [place] URATES H /LPF Urine Bacteria TRACE /HPF Urine Casts NONE /LPF Urine Mucus LARGE H /LPF Urine Culture Indicated NO (TAYLER LOPEZ,RAHEL STUDENT) Vital Signs/I&O 06/14/20 19:21 Temp 37.0 Pulse 82 Resp 16 B/P (MAP) 112/86 (95) O2 Delivery Room Air (TAYLER LOPEZ,RAHEL ALFONSO) Vital Signs/I&O Capillary Refill : Less Than 3 Seconds (LEO MOSER APRN) Blood Pressure Mean: 95 Progress Note : Progress Note I have seen and evaluated the patient. 24yo F with 2wk history of worsening abdominal pain that radiates to suprapubic area, dysuria, urinary frequency, vaginal discharge, and foul smelling vaginal odor. UA was negative for nitrites, leukocyte esterase, RBCs and WBC which r/o a UTI. 20:35 - Pelvic exam will be preformed with swabbing for gonorrhea, chlamydia, and trichomoniasis (TAYLER LOPEZ MED STUDENT) Departure Impression Primary Impression: Dysuria Disposition: HOME, SELF-CARE Condition: Stable Departure-Patient Inst. Decision time for Depature: 20:11 (LEO MOSER APRN) Referrals: [facility] (PCP) Primary Care Physician MARILEE MEJIA APRN (Family) Primary Care Physician Patient Instructions: Dysuria, Adult (DC) Add. Discharge Instructions: 1. Return to ER for any concerns or worsening symptoms 2. Call your regular doctor tomorrow to make an appointment to be seen this week for further evaluation. All discharge instructions reviewed with patient and/or family. Voiced understanding. LEO MOSER APRN Jun 14, 2020 20:12 TAYLER LOPEZ MED STUDENT Jun 14, 2020 20:27
[2020-06-14] MEDS ORDERED: AZITHROMYCIN 250 MG TAB (ZITHROMAX) PO ONE (21:15)
[2020-06-14] MEDS ORDERED: cefTRIAXone 1,000 MG/2.86 ml vial (IM ONLY) ONE (21:15)
[2020-06-14] MEDS ORDERED: LIDOCAINE 1% INJ 20 ML 20 ML VIAL INJ ONE (21:15)
[2020-06-14 21:34] VITALS: BP 110/87
[2020-06-15] MEDS ORDERED: cefTRIAXone 1,000 MG/2.86 ml vial (IM ONLY) IM SCH (09:00)
== END 2020-06-14 21:34 | disposition home or self-care (01) ==
LOC: ER 18:40
DX: R30.0 Dysuria (principal); Z82.49 Family history of ischemic heart disease and other diseases of the circulatory system; Z88.0 Allergy status to penicillin; Z88.2 Allergy status to sulfonamides
CPT/HCPCS: 36415; 81000; 84703; 87070; 87205; 87210; 87491; 87591; 99284

== ENCOUNTER → 2021-05-03 | Outpatient (CLI) | payer MEDICAID ==
[~2021-05-03] MED LIST changes: -CIPR500T4 PO; +CIPR500T5 PO; +DOXY-311 PO; -DOXY100C42 PO; -MONT10TA26; +MONT10TA32; -SULF1TAB35 PO; +SULF1TAB38 PO
--- NOTE | 2021-05-03 09:57 | Diagnostic Imaging Report ---
PROCEDURE: CT sinuses without contrast TECHNIQUE: Multiple contiguous axial images were obtained through the sinuses without the use of intravenous contrast. Coronal and sagittal reformations were then performed. Auto Exposure Controls were utilized during the CT exam to meet ALARA standards for radiation dose reduction. INDICATION: Headache, sinus infection. COMPARISON: None FINDINGS: There is a mucous retention cyst seen in the floor of the maxillary sinuses bilaterally. The ostiomeatal complexes are patent. Additional frontal ethmoid and sphenoid sinuses are clear. Visualized mastoid air cells are unremarkable. The nasal turbinates are grossly unremarkable. Nasal septum is midline. IMPRESSION: Mucous retention cyst. No air-fluid levels identified Dictated by: Dictated on workstation # [id number]
== END ==
LOC: RAD 08:34
PROVIDERS: ATTEND Otolaryngology Otolaryngology/Facial Plastic Surgery
DX: J34.1 Cyst and mucocele of nose and nasal sinus (principal); J32.9 Chronic sinusitis, unspecified
CPT/HCPCS: 70486

== ENCOUNTER → 2021-05-17 | Outpatient (CLI) | payer MEDICAID ==
[~2021-05-17] MED LIST changes: +RT-ALBUTEROL SULF 2.5 MG/3 ML PRE-MIX VIAL INH ONE
== END ==
LOC: RT 11:00
PROVIDERS: ATTEND Nurse Practitioner Family
DX: J45.41 Moderate persistent asthma with (acute) exacerbation (principal)
CPT/HCPCS: 94060; 94726; 94729

== ENCOUNTER 2021-08-18 18:59 | Emergency (ER) | payer MEDICAID ==
[~2021-08-18] VITALS: Ht 150 cm; Wt 38.0 kg
[~2021-08-18 18:59] MED LIST changes: +MONT-40; -MONT10TA32; -RT-ALBUTEROL SULF 2.5 MG/3 ML PRE-MIX VIAL INH ONE
[2021-08-18] MEDS ORDERED: PRD20T PO (19:44)
[2021-08-18] MEDS ORDERED: PROM473S9 PO (19:44)
--- NOTE | 2021-08-18 19:44 | ED Cough/URI ---
General Chief Complaint: Cough/Cold/Flu Symptoms Stated Complaint: CONGESTION, COUGH, SORE THROAT, BODY CHILLS Source: patient Exam Limitations: no limitations History of Present Illness Date Seen by Provider: Aug 18, 2021 Time Seen by Provider: 19:39 Initial Comments To ER with productive cough, sore throat x1 week. [facility] and had a negative Covid swab. Was seen again yesterday with a negative flu swab. No fevers, 19-[id number]-[id number] is ill with similar symptoms. She is on Omnicef but denies much improvement. She denies headache nausea vomiting body aches. Timing/Duration: constant Severity/Quality: moderate Associated Symptoms: cough Allergies and Home Medications Allergies Coded Allergies: Penicillins (Unverified Allergy, Mild, HIVES, Has received Cefazolin in the past, 12/22/19) Sulfa (Sulfonamide Antibiotics) (Verified Allergy, Mild, HIVES, 04/18/19) Patient Home Medication List Home Medication List Reviewed: Yes Acetaminophen (Acetaminophen) 500 Mg Tablet, 1,000 MG PO Q8HR Prescribed by: KAYODE BUNN on 12/24/19 08 Ascorbic Acid/Ascorbate Sodium (Vitamin C 250 mg Tablet Chew) 250 Mg Tab.chew, 2 50 MG PO BID Prescribed by: KAYODE BUNN on 12/24/19 08 Cetirizine HCl (Zyrtec) 10 Mg Capsule, 10 MG PO DAILY, (Reported) Entered as Reported by: FRED ALAMO on 12/20/19 1409 Ferrous Sulfate (Ferrous Sulfate) 325 Mg Tablet, 325 MG PO BID WITH MEALS Prescribed by: KAYODE BUNN on 12/24/19 08 Fluticasone Propionate (Flonase Allergy Relief) 9.9 Ml [place].susp, 1 SPRAY NS DAILY, (Reported) Entered as Reported by: VERONICA SABA on 10/30/19 0342 Ibuprofen (Ibu) 600 Mg Tablet, 600 MG PO Q6H Prescribed by: KAYODE BUNN on 12/24/19 08 Nitrofurantoin Monohyd/M-Cryst (Macrobid 100 mg Capsule) 100 Mg Capsule, 1 TAB PO BID Prescribed by: NAKUL ZEPEDA on 01/17/20 191 Oxycodone Hcl (Oxyir Tablet) 5 Mg Tablet, 5 MG PO Q4HR PRN for To achieve TAG Prescribed by: KAYODE BUNN on 12/24/19 0844 Vit No.124/Iron/FA ( Vitamin Tablet) 1 Each Tablet, 1 EACH PO, (Reported) Entered as Reported by: VERONICA SABA on 10/30/19 0341 [prilosec] , 20 MG PO DAILY Prescribed by: FRED ALAMO on 12/20/19 1414 Review of Systems Review of Systems Constitutional: see HPI EENTM: see HPI Respiratory: see HPI, cough Cardiovascular: no symptoms reported Genitourinary: no symptoms reported Musculoskeletal: no symptoms reported Skin: no symptoms reported Psychiatric/Neurological: No Symptoms Reported Hematologic/Lymphatic: No Symptoms Reported Immunological/Allergic: no symptoms reported Past Tnjentb-Fufxwn-Hcxbbz Hx Patient Social History Tobacco Use?: No Substance use?: No Alcohol Use?: No Immunizations Up To Date Tetanus Booster (TDap): Less than 5yrs PED Vaccines UTD: Yes Seasonal Allergies Seasonal Allergies: Yes Past Medical History Surgery/Hospitalization HX: ASTHMA Surgeries: Yes (TUBES IN EARS, wisdom teeth) Section Respiratory: Yes Asthma Currently Using CPAP: No Currently Using BIPAP: No Cardiac: No Neurological: No Reproductive Disorders: No Sexually Transmitted Disease: No HIV/AIDS: No Genitourinary: No Gastrointestinal: Yes Gastroesophageal Reflux, Chronic Constipation, Irritable Bowel Musculoskeletal: No Fractures Endocrine: No HEENT: No Loss of Vision: Denies Hearing Impairment: Denies Cancer: No Psychosocial: No Integumentary: No Blood Disorders: No Adverse Reaction/Blood Tranf: No (N/A) Family Medical History Asthma 19 MOTHER (copd) Hypertension 19 MOTHER Psychosocial problem 19 FATHER (bipolar) 19 MOTHER (depression) G8 SISTER (depression) No Family History of: Arnaud's disease No Pertinent Family Hx Physical Exam Capillary Refill : Height: 4'11.00" Weight: 85lbs. 0.0oz. 38.532179lt; 20.00 BMI Method:Stated General Appearance: WD/WN, no apparent distress, thin, other (Has HR of 96, O2 100% room air. No wheezing or respiratory disttress. ) Eyes: Bilateral Eye Normal Inspection, Bilateral Eye PERRL, Bilateral Eye EOMI HEENT: PERRL/EOMI, normal ENT inspection Respiratory: no respiratory distress, no accessory muscle use Gastrointestinal: normal bowel sounds, non tender, soft Neurologic/Psychiatric: alert, normal mood/affect, oriented x 3 Skin: normal color, warm/dry Progress/Results/Core Measures Suspected Sepsis SIRS Temperature: Pulse: Respiratory Rate: Blood Pressure / Mean: Results/Orders My Orders Orders - LEO MOSER APRN Covid 19 Inhouse Test (08/18/21 19:28) Influenza A And B By Pcr (08/18/21 19:28) Promethazine/ Codeine Syrup (Phenergan W (08/18/21 19:45) Prednisone Tablet (Deltasone Tablet) (08/18/21 19:45) Vital Signs/I&O Capillary Refill : Departure Impression Primary Impression: Bronchitis Disposition: 01 HOME, SELF-CARE Condition: Stable Departure-Patient Inst. Decision time for Depature: 19:42 Referrals: [facility] [place] (PCP) Primary Care Physician MARILEE MEJIA APRN (Family) Primary Care Physician Patient Instructions: Acute Bronchitis, Adult (DC) Add. Discharge Instructions: 1. Return to Er for any concerns 2. Continue the antibiotics. Cough meds and steroids as directed. All discharge instructions reviewed with patient and/or family. Voiced understanding. Scripts Promethazine HCl/Codeine (Promethazine-Codeine Solution) 473 Ml Syrup 5 ML PO Q6H, #60 ML Prov: LEO MOSER APRN 08/18/21 Prednisone (Prednisone) 20 Mg Tab 40 MG PO DAILY, #4 TAB 0 Refills Prov: LEO MOSER APRN 08/18/21 LEO MOSER APRN Aug 18, 2021 19:44
[2021-08-18] MEDS ORDERED: PROMETHAZINE/ CODEINE SYRUP 5 ML UDC PO ONE (19:45)
[2021-08-18] MEDS ORDERED: predniSONE 20 MG TAB PO ONE (19:45)
[2021-08-18] MEDS ORDERED: PROMETHAZINE/ CODEINE SYRUP 5 ML UDC ONE (19:48)
[2021-08-18 19:50] VITALS: BP 119/74
== END 2021-08-18 19:51 | disposition home or self-care (01) ==
LOC: EDUNIT# 18:59 → ER 19:01
DX: J40 Bronchitis, not specified as acute or chronic (principal)

== ENCOUNTER 2022-06-05 17:51 | Emergency (ER) | payer MEDICAID ==
[~2022-06-05] VITALS: Ht 149.8 cm; Wt 40.8 kg
[~2022-06-05 17:51] MED LIST changes: -FLUC150T2; +FLUC150T41; +PROM473S9 PO
[2022-06-05 17:55] VITALS: BP 118/78
--- NOTE | 2022-06-05 18:38 | Diagnostic Imaging Report ---
INDICATION: Ingested foreign body FINDINGS: The bowel gas pattern is nonspecific. There is a radiopaque foreign body in the right lower quadrant which by history is a tooth implant. There are no abnormal abdominal calcifications. Soft tissues are unremarkable. IMPRESSION: Radiopaque foreign body in the right lower quadrant near the cecum, otherwise unremarkable. Dictated by: Dictated on workstation # [id number]
--- NOTE | 2022-06-05 18:40 | ED GI ---
General Chief Complaint: Dental Problems/Pain Stated Complaint: SWALLOWED TOOTH IMPLANT Nursing Triage Note: PT AMB TO TRIAGE WITH COMPLAINT OF FB IN THROAT. STATES ON SUNDAY SHE SWALLOWED A TOOTH IMPLANT. FEELS LIKE IT IS STUCK IN THROAT. Source of Information: Patient Exam Limitations: No Limitations History of Present Illness Date Seen by Provider: Jun 05, 2022 Time Seen by Provider: 18:39 Initial Comments To ER with complaint of sensation of foreign body in her throat. She believes she swallowed one of her dental implants on Sunday Allergies and Home Medications Allergies Coded Allergies: Penicillins (Unverified Allergy, Mild, HIVES, Has received Cefazolin in the past, 12/22/19) Sulfa (Sulfonamide Antibiotics) (Verified Allergy, Mild, HIVES, 04/18/19) Patient Home Medication List Home Medication List Reviewed: Yes Acetaminophen (Acetaminophen) 500 Mg Tablet, 1,000 MG PO Q8HR Prescribed by: KAYODE BUNN on 12/24/19 08 Ascorbic Acid/Ascorbate Sodium (Vitamin C 250 mg Tablet Chew) 250 Mg Tab.chew, 250 MG PO BID Prescribed by: KAYODE BUNN on 12/24/19 08 Cetirizine HCl (Zyrtec) 10 Mg Capsule, 10 MG PO DAILY, (Reported) Entered as Reported by: FRED ALAMO on 12/20/19 1409 Ferrous Sulfate (Ferrous Sulfate) 325 Mg Tablet, 325 MG PO BID WITH MEALS Prescribed by: KAYODE BUNN on 12/24/19 08 Fluticasone Propionate (Flonase Allergy Relief) 9.9 Ml [place].susp, 1 SPRAY NS DAILY, (Reported) Entered as Reported by: VERONICA SABA on 10/30/19 0342 Ibuprofen (Ibu) 600 Mg Tablet, 600 MG PO Q6H Prescribed by: KAYODE BUNN on 12/24/19 08 Nitrofurantoin Monohyd/M-Cryst (Macrobid 100 mg Capsule) 100 Mg Capsule, 1 TAB PO BID Prescribed by: NAKUL ZEPEDA on 01/17/201912 Oxycodone Hcl (Oxyir Tablet) 5 Mg Tablet, 5 MG PO Q4HR PRN for To achieve TAG Prescribed by: KAYODE BUNN on 12/24/19 08 Prednisone (Prednisone) 20 Mg Tab, 40 MG PO DAILY Prescribed by: LEO MOSER on 08/18/211943 Vit No.124/Iron/FA ( Vitamin Tablet) 1 Each Tablet, 1 EACH PO, (Reported) Entered as Reported by: VERONICA SABA on 10/30/19 0341 Promethazine HCl/Codeine (Promethazine-Codeine Solution) 473 Ml Syrup, 5 ML PO Q6H Prescribed by: LEO MOSER on 08/18/211944 [prilosec] , 20 MG PO DAILY Prescribed by: FRED ALAMO on 12/20/19 1414 Review of Systems Review of Systems Constitutional: see HPI EENTM: No Symptoms Reported Respiratory: No Symptoms Reported Cardiovascular: No Symptoms Reported Gastrointestinal: See HPI Genitourinary: No Symptoms Reported Musculoskeletal: no symptoms reported Skin: no symptoms reported Psychiatric/Neurological: No Symptoms Reported Endocrine: No Symptoms Reported Hematologic/Lymphatic: No Symptoms Reported Past Yqtnryu-Lrhtii-Bvnceq Hx Patient Social History Tobacco Use?: No Use of E-Cig and/or Vaping dev: No Substance use?: No Alcohol Use?: No Immunizations Up To Date Tetanus Booster (TDap): Less than 5yrs PED Vaccines UTD: Yes Seasonal Allergies Seasonal Allergies: Yes Past Medical History Surgery/Hospitalization HX: ASTHMA Surgeries: Yes (TUBES IN EARS, wisdom teeth) Section Respiratory: Yes Asthma Currently Using CPAP: No Currently Using BIPAP: No Cardiac: No Neurological: No Reproductive Disorders: No Sexually Transmitted Disease: No HIV/AIDS: No Genitourinary: No Gastrointestinal: Yes Gastroesophageal Reflux, Chronic Constipation, Irritable Bowel Musculoskeletal: No Fractures Endocrine: No HEENT: No Loss of Vision: Denies Hearing Impairment: Denies Cancer: No Psychosocial: No Integumentary: No Blood Disorders: No Adverse Reaction/Blood Tranf: No (N/A) Family Medical History Asthma 19 MOTHER (copd) Hypertension 19 MOTHER Psychosocial problem 19 FATHER (bipolar) 19 MOTHER (depression) G8 SISTER (depression) No Family History of: Arnaud's disease No Pertinent Family Hx Physical Exam Vital Signs Vital Signs - First Documented 06/05/22 17:55 Pulse 87 Resp 20 B/P (MAP) 118/78 (91) Pulse Ox 100 O2 Delivery Room Air Capillary Refill : Less Than 3 Seconds Height/Weight/BMI Height: 4'11.00" Weight: 85lbs. 0.0oz. 38.763110ac; 18.00 BMI Method:Stated General Appearance: WD/WN, no apparent distress HEENT: PERRL/EOMI, normal ENT inspection Respiratory: no respiratory distress, no accessory muscle use Gastrointestinal: normal bowel sounds, non tender, soft Extremities: normal range of motion, non-tender Neurologic/Psychiatric: alert, normal mood/affect, oriented x 3 Skin: normal color, warm/dry Progress/Results/Core Measures Results/Orders My Orders Orders - LEO MOSER APRN Soft Tissue Neck (06/05/22 18:00) Abdomen/Kub 1[place] (06/05/22 17:55) Vital Signs/I&O 06/05/22 17:55 Pulse 87 Resp 20 B/P (MAP) 118/78 (91) Pulse Ox 100 O2 Delivery Room Air Blood Pressure Mean: 91 Departure Impression Primary Impression: Foreign body ingestion Disposition: 01 HOME, SELF-CARE Condition: Stable Departure-Patient Inst. Decision time for Depature: 18:40 Referrals: [facility] [place]) Primary Care Physician MARILEE MEJIA APRN (Family) Primary Care Physician Patient Instructions: Swallowed Objects Add. Discharge Instructions: . You should pass this in your stool just fine. Follow-up with a dentist in regards to replacing this in your tooth. All discharge instructions reviewed with patient and/or family. Voiced understanding. LEO MOSER APRN Jun 05, 2022 18:40
--- NOTE | 2022-06-05 18:42 | Diagnostic Imaging Report ---
INDICATION: Neck pain after fall. FINDINGS: The alignment is normal. The vertebral body heights are well-maintained. There is no fracture or traumatic subluxation. The odontoid is intact and the lateral masses are well aligned. Prevertebral soft tissues are within normal limits. Lung apices are clear. IMPRESSION: Unremarkable 2 view cervical spine series Dictated by: Dictated on workstation # [id number]
== END 2022-06-05 18:53 | disposition home or self-care (01) ==
LOC: EDUNIT# 17:51 → ER 17:53
DX: T18.9XXA Foreign body of alimentary tract, part unspecified, initial encounter (principal); W45.8XXA Other foreign body or object entering through skin, initial encounter
CPT/HCPCS: 70360; 74018

== ENCOUNTER 2022-09-27 05:35 | Outpatient (CLI) | payer MEDICAID ==
[~2022-09-27] VITALS: Ht 149.9 cm; Wt 43.1 kg
[~2022-09-27 05:35] MED LIST changes: +ALBU8.5H6 IH; -DOXY-311 PO; +DOXY-444 PO; -RT-ALBUINH IH
[2022-09-28] MEDS ORDERED: PANT40TA52 PO (09:44)
[2022-09-28] MEDS ORDERED: NF-ALLE180 PO (09:44)
[2022-09-28] MEDS ORDERED: RT-ALBUINH INH (09:44)
[2022-09-28] MEDS ORDERED: TIOT4MIS5 IH (09:44)
== END 2022-09-28 09:48 | disposition home or self-care (01) ==
LOC: PREOP 05:35
PROVIDERS: ATTEND Surgery
DX: Z01.818 Encounter for other preprocedural examination (principal)

== ENCOUNTER 2022-10-03 10:50 | Day surgery (SDC) | payer MEDICAID ==
[2022-10-03] VITALS (7 sets, daily range): BP systolic 97–116; BP diastolic 56–70
[~2022-10-03] VITALS: Ht 146.9 cm; Wt 43.1 kg
[~2022-10-03 10:50] MED LIST changes: +NF-ALLE180 PO; +TIOT4MIS5 IH
[2022-10-03] MEDS ORDERED: LACTATED RINGERS 1,000 ML IV STA (10:52)
[2022-10-03] MEDS ORDERED: HURRICAINE EXT TUBE (BENZOCAINE) XX PRN (11:00)
[2022-10-03] MEDS ORDERED: LACTATED RINGERS 1,000 ML IV ONE (11:02)
[2022-10-03] MEDS ORDERED: HURRICAINE EXT TUBE (BENZOCAINE) ONE (11:02)
[2022-10-03] MEDS ORDERED: proPOfol 200 MG/20 ML (DIPRIVAN) VIAL IV ONE (12:22)
[2022-10-03] MEDS ORDERED: MIDAZOLAM 2 MG/2 ML (VERSED) VIAL ONE (12:23)
--- NOTE | 2022-10-03 12:25 | Progress Note-Pre Operative ---
Pre-Operative Progress Note Date of Available H&P: Sep 19, 2022 Date H&P Reviewed: Oct 03, 2022 Time H&P Reviewed: 12:23 History & Physical: H&P Reviewed, Patient Examed, No changes noted Pre-Operative Diagnosis: Epigastric Pain MESHA GOETZ DO Oct 03, 2022 12:25
--- NOTE | 2022-10-03 12:47 | Anesthesia-General Post-Op ---
MAC Patient Condition Mental Status/LOC: Same as Preop Cardiovascular: Satisfactory Nausea/Vomiting: Absent Respiratory: Satisfactory Pain: Controlled Complications: Absent Post Op Complications Complications None Follow Up Care/Instructions Patient Instructions None needed. Anesthesiology Discharge Order Discharge Order Patient is doing well, no complaints, stable vital signs, no apparent adverse anesthesia problems. No complications reported per nursing. PALAK SHARMA CRNA Oct 03, 2022 12:47
--- NOTE | 2022-10-03 12:49 | Progress Note-Post Operative ---
Post-Operative Progess Note Surgeon (s)/Auto Damage Adjuster (s) Surgeon MESHA GOETZ DO Auto Damage Adjuster: None Pre-Operative Diagnosis Epigastric Pain Post-Operative Diagnosis gastritis esophagitis Procedure & Operative Findings Date of Procedure 10/03/22 Procedure Performed/Findings EGD with bx PROCEDURE NOTE: After informed consent was obtained, the patient was brought to the endoscopy suite, placed in bed in left lateral decubitus position. She was administered IV sedation by the STEWARD/STEWARDESS NIGHT who then monitored vitals the entire time, heart rate, blood pressure and pulse ox and the scope was inserted down the mouth through the esophagus into the stomach. On the way down, noted some mild esophagitis, took a picture, pushed into the stomach, pushed past the antrum into the duodenum. Duodenum looked good. Pulled back and did a biopsy of antrum, then retroflexed the scope, did not see a hiatal hernia and elected to do a biopsy of the body of the stomach. Next, pulled the scope into the GE j unction, took another picture of the GE junction and then did a biopsy of the GE junction. Pushed the scope back into the stomach, suctioned all the air out of the stomach. At this point pulled the scope up the esophagus and out the mouth. The patient tolerated the procedure, and she recovered in endoscopy suite. Anesthesia Type IV sedation by STEWARD/STEWARDESS NIGHT Estimated Blood Loss Estimated blood loss (mL): scant Specimens/Packing Specimens Removed antral bx body of stomach bs GE jxn bx MESHA GOETZ DO Oct 03, 2022 12:49
--- NOTE | 2022-10-03 12:52 | Endoscopy Discharge Instruct ---
Endo Procedure/Findings Findings 1.: Gastritis 2.: Other Findings (mild esophagitis) Discharge Instructions - Activity: You might feel a little sleepy until tomorrow. This is due to the medicine you received to relax you. Until tomorrow, you should: NOT drive a car, operate machinery or power tools. NOT drink any alcoholic beverages. NOT make any important decisions or sign importortant papers. Do not return to work until tomorrow, unless otherwise instructed. Resume previous activities tomorrow. Diet: Start by taking liquids. If you tolerate liquids, advance to solid food. 1.: EGD in 3 years Notify Physician - If you experience excessive bleeding, unusual abdominal pain, fever, or chest pain, contact your doctor immediately. MESHA GOETZ DO Oct 03, 2022 12:52
== END 2022-10-03 13:33 | disposition home or self-care (01) ==
LOC: ENDO 10:50
PROVIDERS: ATTEND Surgery
DX: K29.70 Gastritis, unspecified, without bleeding (principal); K31.89 Other diseases of stomach and duodenum; Z28.310 Unvaccinated for COVID-19; K21.00 Gastro-esophageal reflux disease with esophagitis, without bleeding; Z79.899 Other long term (current) drug therapy; Z86.19 Personal history of other infectious and parasitic diseases
CPT/HCPCS: 84703; 88305

== ENCOUNTER → 2022-10-13 | Outpatient (CLI) | payer MEDICAID ==
--- NOTE | 2022-10-13 09:05 | Diagnostic Imaging Report ---
PROCEDURE: US Gallbladder. TECHNIQUE: Multiple real-time grayscale images were obtained over the right upper quadrant in various projections. INDICATION: Epigastric pain. FINDINGS: Liver is normal in size 14 cm. The portal vein is patent and shows normal direction of flow. No liver mass is detected. Gallbladder is without stones or sludge. No wall thickening or pericholecystic fluid is identified. There is no biliary ductal dilatation. Pancreas unremarkable. Aorta is nonaneurysmal. IVC is patent. Right kidney is without calculi or hydronephrosis. There is no ascites. IMPRESSION: Unremarkable gallbladder ultrasound. Dictated by: Dictated on workstation # [id number]
== END ==
LOC: RAD 07:31
PROVIDERS: ATTEND Surgery
DX: R10.13 Epigastric pain (principal)
CPT/HCPCS: 76705

== ENCOUNTER → 2022-10-26 | Outpatient (CLI) | payer MEDICAID ==
[~2022-10-26] MED LIST changes: +CATHETER FLUSH 10 ML SYR IVP PRN
--- NOTE | 2022-10-26 16:24 | Diagnostic Imaging Report ---
INDICATION: Right upper quadrant abdominal pain. Epigastric pain. COMPARISON: None Tc-99m Choletec 4.1 mCi IV followed by 8 ounces of oral Ensure FINDINGS: The upper abdomen was imaged for 60 minutes with the gamma camera. There is normal appearance of activity in the liver. There is activity in the common duct and gallbladder by 60 minutes. After 60 minutes, the patient received 8 ounces of oral Ensure. After 60 minutes with additional imaging, the gallbladder ejection fraction was calculated to be 44% which is normal. IMPRESSION: Normal hepatobiliary study with GBEF of 44%. Dictated by: Dictated on workstation # [id number]
== END ==
LOC: CARD 09:48
PROVIDERS: ATTEND Surgery
DX: R10.13 Epigastric pain (principal); R10.11 Right upper quadrant pain
CPT/HCPCS: 78227; A9537